=== PATIENT | female | born 1970 | race American Indian/Alaskan Native ===

== ENCOUNTER → 2017-10-12 09:55 | Outpatient (CLI) | payer MEDICARE, OTHER, SELFPAY ==
[2017-10-12 12:09] LABS: Urine N gonorrhoeae NOT DETECTED
[2017-10-12 12:46] LABS: Urine Chlamydia NOT DETECTED
== END ==
PROVIDERS: PCP Family Medicine; Visit Provider Obstetrics & Gynecology
DX: Z76.89 Persons encountering health services in other specified circumstances (principal)
CPT/HCPCS: 87491; 87591

== ENCOUNTER 2017-11-11 20:02 | Emergency (ER) | payer MEDICARE, OTHER, SELFPAY ==
--- NOTE | 2017-11-11 20:18 | DI.RAD.S_ITS ---
PROCEDURE: XR CHEST 1V INDICATIONS: 47 year-old with chest pain. TECHNIQUE: One view of the chest was acquired. COMPARISON: [facility], CR, XR CHEST 1 VIEW, 10/21/2017, 15:21. FINDINGS: Surgical changes and devices: None. Lungs and pleura: No pleural effusions or pneumothorax. Lungs are clear. Mediastinum: Mediastinal contours appear normal. Heart size is normal. Bones and chest wall: No suspicious bony lesions. Overlying soft tissues appear unremarkable. IMPRESSION: No acute cardiopulmonary disease. Dictated by: Silvia Sosa M.D. on 11/11/2017 at 21:50 Approved by: Silvia Sosa M.D. on 11/11/2017 at 21:50
[2017-11-11 20:28] LABS: Add Manual Diff / Slide Review NO; Basophils Percent Auto 0.7 % (0-2); Eosinophils Percent Auto 1.4 % (2-4); Hematocrit 42.2 % (36-46); Hemoglobin 14.2 g/dL (12.0-16.0); Lymphocytes Percent Auto 29.9 % (25-40); Mean Corpuscular HGB Conc 33.8 % (30-36); Mean Corpuscular Hemoglobin 28.8 PG (26-34); Mean Corpuscular Volume 85.3 fL (80-100); Monocytes Percent Auto 4.1 % (3-14); Neutrophils Absolute Auto 7200 /uL (3000-5900); Neutrophils Percent Auto 63.9 % (50-75); Platelet Count 248 X10^3/uL (150-400); Red Blood Cell Count 4.94 X10^6/uL (4.0-5.2); Red Cell Distribution Width 13.6 % (11.6-14.8); White Blood Cell Count 11.2 X10^3/uL (4.5-11.0)
[2017-11-11] MEDS: SODIUM CHLORIDE 0.9% 1,000 ML 150 ML IV (20:32)
[2017-11-11] MEDS: ASPIRIN 81 MG TAB 324 MG PO (20:32)
[2017-11-11 20:34] LABS: Alanine Aminotransferase 33 IU/L (9-52); Albumin 4.1 g/dL (3.5-5.0); Albumin Globulin Ratio 1.4 (1.0-2.8); Alkaline Phosphatase 110 U/L (38-126); Aspartate Aminotransferase 28 IU/L (14-36); BUN Creatinine Ratio 8.8 (6-22); Bilirubin Total 0.3 mg/dL (0.2-1.3); Blood Urea Nitrogen 7 mg/dL (7-17); Calcium 9.2 mg/dL (8.4-10.2); Carbon Dioxide 21 mmol/L (22-32); Chloride 101 mmol/L (98-107); Creatine Kinase 35 U/L (30-135); Estimated Glomerular Filt Rate > 60.0 mL/min (>60); Glucose 412 mg/dL (70-100); HEMOLYSIS < 15 (0-50); Lipase 156 U/L (23-300); Potassium 3.7 mmol/L (3.4-5.1); Sodium 136 mmol/L (137-145); Total Protein 7.1 g/dL (6.3-8.2)
[2017-11-11 20:49] LABS: Troponin I < 0.012 ng/mL (0.01-0.034)
[2017-11-11 21:08] VITALS: BP 133/87; PULSE 131; RESP 28; O2SAT 96
--- NOTE | 2017-11-11 22:12 | DI.CT.S_ITS ---
PROCEDURE: CT ANGIO CHEST PE PROTOCOL INDICATIONS: Chest Pain, SOB, tachycardia, recent travel TECHNIQUE: After the administration of intravenous contrast, 2 mm thick sections acquired from the pulmonary apices to the posterior costophrenic angles. 3-dimensional maximum intensity projection (MIP) coronal and sagittal reformats were then acquired through the thorax. For radiation dose reduction, the following was used: automated exposure control, adjustment of mA and/or kV according to patient size. COMPARISON: None. FINDINGS: Image quality: Excellent. Pulmonary arteries: Pulmonary arteries are normal in size, and demonstrate no intraluminal filling defects to suggest central pulmonary embolism. Lungs and pleura: Lungs are clear. Presumed 2 mm calcified granuloma in the left lung on image 29. No pleural effusions or pneumothorax. Central and peripheral airways are patent. Mediastinum: Heart size is normal, without pericardial effusion. No mediastinal or hilar adenopathy. Thoracic aorta is normal in caliber and enhancement. Esophagus is normal in caliber, without hiatal hernia. Bones and chest wall: No suspicious bony lesions. Ribs and thoracic spine appear intact throughout. Thyroid gland negative. No axillary or supraclavicular adenopathy. Abdomen: Mild hepatic steatosis. Slightly nodular contour of the liver. Consider further evaluation with LFTs. IMPRESSION: No evidence of pulmonary embolism. No acute consolidation. Dictated by: Luc Hernandez M.D. on 11/12/2017 at 7:40 Approved by: Luc Hernandez M.D. on 11/12/2017 at 7:45
[2017-11-12 00:05] VITALS: BP 122/75; PULSE 105; RESP 21; O2SAT 97
[2017-11-12] MEDS: HYDROMORPHONE 1 MG INJ IV (00:36)
[2017-11-12 00:41] VITALS: BP 103/51; PULSE 99; RESP 16; O2SAT 97
[2017-11-12 01:19] VITALS: BP 111/68; PULSE 103; RESP 23; O2SAT 97
--- NOTE | 2017-11-12 04:31 | ED_ITS ---
HPI - Chest Pain General Chief Complaint: Chest Pain Stated Complaint: chest pain Time Seen by Provider: 11/11/17 20:03 Source: patient and family Mode of arrival: ambulatory Limitations: no limitations History of Present Illness HPI narrative: 47-year-old female presents with a chief complaint of sharp and stabbing epigastric pain that started a few hours prior to her arrival. She denies any dizziness, weakness or lightheadedness. She denies any shortness of breath but does complain of a rapid heart rate. She admittedly is feeling quite anxious and her symptoms started while at a family member's . She denies any history of blood clot but does state she traveled to [place] a few weeks ago. She denies any history of cancer or lower extremity swelling or pain. MD complaint: chest pain Onset (ago): hour(s) Duration: intermittent Pain location: epigastric Severity: moderate Quality: sharp Pain radiation: none Relieving factors: nothing Exacerbating factors: inspiration and eating Context: recent travel Associated symptoms: nausea Treatments prior to arrival chest pain: none Related Data Home Medications Medication Instructions Recorded Confirmed prazosin [Minipress] 1 mg PO BID #0 03/10/16 propranolol 80 mg PO QDAY #0 03/10/16 albuterol sulfate [Ventolin HFA] 2 puff INH BIDP PRN #0 09/03/16 bupropion HCl 75 mg PO BID #0 09/03/16 clonazepam 1 mg PO TID #0 09/03/16 fluticasone [Flonase Allergy 1 spray INTRANASAL BID #0 09/03/16 Relief] insulin glargine [Lantus U-100 55 unit SQ HS #0 09/03/16 Insulin] [id number] 1 tab PO QDAY #0 11/24/16 [Triumeq] albiglutide [Tanzeum] 30 mg SQ QWEEK #0 11/24/16 amitriptyline 50 mg PO HS #0 11/24/16 cetirizine 10 mg PO QDAY #0 11/24/16 dexlansoprazole [Dexilant] 60 mg PO QDAY #0 11/24/16 glimepiride [Amaryl] 4 mg PO BID #0 11/24/16 losartan 25 mg PO QDAY #0 11/24/16 metformin [Fortamet] 1,000 mg PO BID #0 11/24/16 tiotropium bromide [Spiriva with 1 puff INH QDAY #0 11/24/16 HandiHaler] atorvastatin [Lipitor] 80 mg PO QDAY #0 12/16/16 Previous Rx's Medication Instructions Recorded gabapentin 800 mg PO TID #90 12/27/16 meperidine [Demerol] 100 mg PO Q4P #60 tab 12/27/16 hydromorphone [Dilaudid] 1 - 3 tab PO Q3HP PRN #60 tab 04/09/17 oseltamivir [Tamiflu] 75 mg PO BID 5 Days #0 cap 07/25/17 estradiol 1 mg tablet 1 mg PO QDAY #90 tab 09/15/17 progesterone micronized 100 mg 100 mg PO QDAY #90 cap 10/21/17 capsule Allergies Allergy/AdvReac Type Severity Reaction Status Date / Time levofloxacin [LEVOFLOXACIN] Allergy Severe hives Unverified 08/04/17 12:06 Sulfa (Sulfonamide Allergy Severe rash Unverified 08/04/17 12:06 Antibiotics) [SULFA (SULFONAMIDE ANTIBIOTICS)] amoxicillin [From AUGMENTIN] Allergy Mild rash Unverified 08/04/17 12:06 ciprofloxacin [From CIPRO] Allergy Mild rash Unverified 08/04/17 12:06 clarithromycin [From BIAXIN] Allergy Mild rash Unverified 08/04/17 12:06 clavulanic acid Allergy Mild rash Unverified 08/04/17 12:06 [From AUGMENTIN] morphine [MORPHINE] AdvReac Mild n/v Unverified 08/04/17 12:06 pregabalin [PREGABALIN] AdvReac Mild lost voice Unverified 08/04/17 12:06 Review of Systems Review of Systems All systems reviewed & are unremarkable except as noted in HPI and below Constitutional Denies chills, Denies fever(s), Denies lethargy and Denies weakness Eyes Denies change in vision, Denies eye discharge, Denies irritation and Denies loss of vision ENT Ears, Nose, Mouth, and Throat: Denies change in voice, Denies neck pain and Denies sore throat Cardiovascular Reports chest pain, Reports rapid heart rate, Denies irregular heart rhythm, Denies lightheadedness, Reports palpitations, Denies dyspnea, Denies dyspnea on exertion and Denies orthopnea Respiratory Denies cough, Reports pain on inspiration, Denies dyspnea, Denies dyspnea on exertion and Denies wheezing Gastrointestinal Gastrointestinal: Denies abdominal pain, Denies change in bowel habits, Denies diarrhea, Denies nausea and Denies vomiting Genitourinary Denies hematuria, Denies flank pain, Denies urinary incontinence and Denies urinary urgency Musculoskeletal Denies neck pain Integumentary/Breasts Denies pruritus, Denies erythema, Denies rash and Denies wounds Neurologic Denies confusion, Denies loss of vision and Denies weakness Psychiatric Reports anxiety, Denies confusion, Reports depression, Denies homicidal ideation and Denies suicidal ideation Endocrine Reports palpitations Hematologic/Lymphatic Denies easy bruising Allergic/Immunologic Denies wheezing PFSH Medical History Anxiety (Chronic) Arthritis (Chronic) Bipolar disorder (Chronic) Depression (Chronic) Diabetes mellitus (Chronic) GERD (gastroesophageal reflux disease) (Chronic) HIV (human immunodeficiency virus infection) (Chronic) History of gastrointestinal symptoms (Chronic) Hypertension (Chronic) PTSD (post-traumatic stress disorder) (Chronic) Fibroids (Resolved) Surgical History History of cystoscopy (Resolved 2013) S/P functional endoscopic sinus surgery (Resolved 2002) Status post arthroscopy (Resolved 2003) Status post cholecystectomy (Resolved 2011) Status post laparoscopic supracervical hysterectomy (Resolved 2011) Family History Father Congestive heart failure Social History Smoking Status: Current every day smoker Exam Narrative Exam Narrative: 47-year-old female visibly anxious complaining of epigastric chest pain and palpitations Initial Vital Signs Initial Vital Signs: Vital Signs Pulse Rate 131 H 11/11/17 21:08 Respiratory Rate 28 H 11/11/17 21:08 Blood Pressure 133/87 H 11/11/17 21:08 Pulse Oximetry 96 11/11/17 21:08 Const General: cooperative, well developed, acute distress and anxious Nutritional Appearance: well nourished Orientation: alert, awake, oriented x3 and not confused [facility] Head: normocephalic and atraumatic Ears: external ears normal and TM's normal bilaterally Nose: external nose normal and No nasal discharge Face and sinus: sinuses nontender, face symmetric, no sinus tenderness and No dry mucous membranes Mouth: oral mucosae normal and moist mucous membranes Teeth and gingiva: dentition normal Throat: tonsils normal and uvula midline Chest Chest: normal inspection of the chest Resp Effort & Inspection: normal respiratory effort, able to speak in complete sentences, no respiratory distress and no use of accessory muscles Auscultation: clear to auscultation bilaterally, no rales, no rhonchi and no wheezes Cardio Rate: tachycardic Rhythm: regular rhythm GI Inspection: normal to inspection and non-distended Palpation: tender (In the epigastrium) Neuro General: alert, oriented x3, gait normal and no focal motor deficits Speech: speech normal Extrem General: full ROM, no clubbing, cyanosis or edema, no pedal edema and no calf tenderness Psych Appearance: grossly normal and well kempt Mental Status: mental status grossly normal Speech and Movement: speech and movement normal Attitude: cooperative Thought Process: normal Course Orders Ordered: ED Orders 11/11/17 20:10 Complete Blood Count AUTO DIFF Stat Comprehensive Metabolic Panel Stat Lipase Stat Troponin & CK Cardiac Panel Stat 11/11/17 20:18 XR chest 1V Stat EKG-12 Lead Stat 11/11/17 22:12 CT angio chest PE protocol Stat Discontinued Medications Aspirin (Aspirin Chew) 324 mg PO NOW ONE Stop: 11/11/17 20:19 Last Admin: 11/11/17 20:32 Dose: 324 mg Hydromorphone HCl (Dilaudid) 1 mg IV NOW ONE Stop: 11/12/17 00:27 Last Admin: 11/12/17 00:36 Dose: 1 mg Sodium Chloride (Normal Saline 0.9%) 1,000 mls @ 150 mls/hr IV CONT MILY Last Infusion: 11/12/17 01:08 Dose: 0 mls/hr Admin: 11/11/17 20:32 Dose: 150 mls/hr Vital Signs - 8 hr 11/11/17 21:08 11/12/17 00:05 11/12/17 00:41 Pulse Rate 131 H 105 H 99 H Respiratory Rate 28 H 21 16 Blood Pressure Blood Pressure [Right Arm] 133/87 H 122/75 H 103/51 L Pulse Oximetry 96 97 97 11/12/17 01:19 Pulse Rate 103 H Respiratory Rate 23 Blood Pressure 111/68 Blood Pressure [Right Arm] Pulse Oximetry 97 MDM - Chest Pain Differential Diagnosis Likely pneumothorax, stable angina, unstable angina pectoris, atypical chest pain, st elevation myocardial infarction, costochondritis, chest pain, biliary colic and other Medical Records Data Attestation: I reviewed the patient's medical records. Lab Data Attestation: I reviewed the patient's lab results. Result diagrams: 11/11/17 20:10 11/11/17 20:10 Lab Results 11/11/17 11/11/17 Range/Units 20:10 20:10 WBC 11.2 H (4.5-11.0) X10^3/uL RBC 4.94 (4.0-5.2) X10^6/uL Hgb 14.2 (12.0-16.0) g/dL Hct 42.2 (36-46) % MCV 85.3 (80-100) fL MCH 28.8 (26-34) PG MCHC 33.8 (30-36) % RDW 13.6 (11.6-14.8) % Plt Count 248 (150-400) X10^3/uL Neut % (Auto) 63.9 (50-75) % Lymph % (Auto) 29.9 (25-40) % [place] % (Auto) 4.1 (3-14) % Eos % (Auto) 1.4 L (2-4) % Baso % (Auto) 0.7 (0-2) % Neut # (Auto) 7200 H (4458-8302) /uL Sodium 136 L (137-145) mmol/L Potassium 3.7 (3.4-5.1) mmol/L Chloride 101 (98-107) mmol/L Carbon Dioxide 21 L (22-32) mmol/L BUN 7 (7-17) mg/dL Creatinine 0.80 (0.52-1.04) mg/dL Estimated GFR > 60.0 (>60) mL/min BUN/Creatinine Ratio 8.8 (6-22) Glucose 412 H (70-100) mg/dL Calcium 9.2 (8.4-10.2) mg/dL Total Bilirubin 0.3 (0.2-1.3) mg/dL AST 28 (14-36) IU/L ALT 33 (9-52) IU/L Alkaline Phosphatase 110 (38-126) U/L Total Creatine Kinase 35 (30-135) U/L Troponin I < 0.012 (0.01-0.034) ng/mL Total Protein 7.1 (6.3-8.2) g/dL Albumin 4.1 (3.5-5.0) g/dL Globulin 3.0 (1.7-4.1) g/dL Albumin/Globulin Ratio 1.4 (1.0-2.8) Lipase 156 (23-300) U/L Imaging Data CT scan - chest: Radiologist's impression: No PE ECG Data Interpretation: Sinus tachycardia in the 120s without signs of ectopy or ischemia such as ST elevation or T-wave inversion MDM Narrative Medical decision making narrative: Cardiac etiology considered but pain is epigastric, sharp and reproducible with palpation. It is worse with a deep breath. EKG shows no ischemic change and troponin is normal. PE considered given travel and pleuritic-type chest pain but CT with PE protocol was normal. Pancreatitis and gallbladder disease considered but normal labs are present. Discharge Plan Departure Patient Disposition: Home, Self-Care Clinical Impression: Atypical chest pain, Acute hyperglycemia Discharge Date/Time: 11/12/17 01:20 Interventions: ED Discharge Assessment Last Done: 11/12/17 01:19 Instructions: DI for Atypical Chest Pain Activity Restrictions/Additional Instructions: *You have been diagnosed with [ atypical chest pain and hyperglycemia ] *What to do: *Take medications as directed *Follow up with your primary care provider in 2-3 days, call for an appointment. Let them know you were seen in the Emergency Department and that we ask that you be seen in follow up *Return to ER if you should have any new, worsening or concerning symptoms , such as [ recurrence of chest pain, shortness of breath or other bothersome symptoms] Prescriptions: No Action propranolol 80 MG capsule,extended release 24 hr 80 mg PO QDAY Qty: 0 RF: 0 prazosin [Minipress] 1 MG capsule 1 mg PO BID Qty: 0 RF: 0 bupropion HCl 75 MG tablet 75 mg PO BID Qty: 0 RF: 0 albuterol sulfate [Ventolin HFA] 90 MCG/PUFF HFA aerosol inhaler 2 puff INH BIDP PRNQty: 0 RF: 0 clonazepam 1 MG tablet 1 mg PO TID Qty: 0 RF: 0 insulin glargine [Lantus U-100 Insulin] 100 UNIT/1 ML solution 55 unit SQ HS Qty: 0 RF: 0 fluticasone [Flonase Allergy Relief] 9.9 ML spray,suspension 1 spray Intranasal BID Qty: 0 RF: 0 vzyxgtog-flkbwdkivuix-qgpnutz [Triumeq] 1 EACH tablet 1 tab PO QDAY Qty: 0 RF: 0 albiglutide [Tanzeum] 30 MG/0.5 ML pen injector 30 mg SQ QWEEK Qty: 0 RF: 0 dexlansoprazole [Dexilant] 60 MG capsule,biphase delayed releas 60 mg PO QDAY Qty: 0 RF: 0 amitriptyline 50 MG tablet 50 mg PO HS Qty: 0 RF: 0 cetirizine 10 MG tablet 10 mg PO QDAY Qty: 0 RF: 0 glimepiride [Amaryl] 4 MG tablet 4 mg PO BID Qty: 0 RF: 0 losartan 25 MG tablet 25 mg PO QDAY Qty: 0 RF: 0 metformin [Fortamet] 1,000 MG tablet extended release 24hr 1,000 mg PO BID Qty: 0 RF: 0 tiotropium bromide [Spiriva with HandiHaler] 18 MCG capsule, w/inhalation device 1 puff INH QDAY Qty: 0 RF: 0 atorvastatin [Lipitor] 80 MG tablet 80 mg PO QDAY Qty: 0 RF: 0 gabapentin 800 MG tablet 800 mg PO TID Qty: 90 RF: 1 meperidine [Demerol] 100 MG tablet 100 mg PO Q4P Qty: 60 RF: 0 hydromorphone [Dilaudid] 2 MG tablet 1 - 3 tab PO Q3HP PRNQty: 60 RF: 0 oseltamivir [Tamiflu] 75 MG capsule 75 mg PO BID 5 Days Qty: 0 RF: 0 estradiol 1 mg tablet 1 mg PO QDAY Qty: 90 RF: 1 progesterone micronized [Prometrium] 100 mg capsule 100 mg PO QDAY Qty: 90 RF: 1 Referrals: Sal Britt MD [Primary Care Provider] -
== END 2017-11-12 01:20 | disposition home or self-care (01) ==
PROVIDERS: Emergency Provider Emergency Medicine; PCP Family Medicine
DX: R07.89 Other chest pain (principal); R73.9 Hyperglycemia, unspecified
CPT/HCPCS: 36591; 71045; 71275; 80053; 81003; 82550; 82553; 82962; 83690; 84484; 85025; 93005; 93041; 96361; 96374; 99284; 99285; J1170; Q9967

== ENCOUNTER → 2018-04-14 07:43 | Outpatient (CLI) | payer MEDICARE, OTHER, SELFPAY | PROVIDERS: PCP Family Medicine; Visit Provider Obstetrics & Gynecology | DX: Z12.31 Encounter for screening mammogram for malignant neoplasm of breast (principal); Z53.9 Procedure and treatment not carried out, unspecified reason ==

== ENCOUNTER → 2018-04-21 08:35 | Outpatient (CLI) | payer MEDICARE, OTHER, SELFPAY ==
--- NOTE | 2018-04-21 08:38 | DI.MG.S_ITS ---
BILATERAL DIGITAL DIAGNOSTIC MAMMOGRAM 3D/2D: 04/21/2018 CLINICAL: Left breast mass. Per technologist, patient reports left axillary tenderness for 6 months and extends down towards questionable mass/cyst. Patient has noted that there may be a cyst laterally with tenderness for 1 month. She thinks it may be a little smaller at today's exam. Had CBE yesterday. Comparison is made to exams dated: 06/26/2016 mammogram, 06/21/2015 mammogram, and 06/14/2014 mammogram - [facility]. There are scattered fibroglandular elements in both breasts. There is a square marker overlying the skin of the left axilla at the site of the patient's reported focal pain. There is no underlying mammographic abnormality. There is a triangular marker overlying the skin of the left axilla/left breast axillary tail at the site of the patient's reported palpable abnormality. There is nearby benign-appearing oval circumscribed 0.9 cm lymph node with normal internal fatty hilum. No other significant masses, calcifications, or other findings are seen in either breast. IMPRESSION: INCOMPLETE: NEEDS ADDITIONAL IMAGING EVALUATION No mammographic abnormality to correlate with the site of the patient's reported focal left axillary pain. Targeted diagnostic ultrasound recommended for further evaluation, which will be performed immediately following this exam. 0.9 cm benign appearing left axilla/axillary tail lymph node appears to correspond to the site of the patient's reported focal palpable abnormality on mammography. Targeted diagnostic ultrasound recommended for further evaluation, which will be performed immediately following this exam. This exam was interpreted at Station ID: [id number]. NOTE: For mammograms, a report in lay terms will be sent to the patient. Approximately 15% of breast malignancies will not be visualized mammographically. In the management of a palpable breast mass, a negative mammogram must not discourage biopsy of a clinically suspicious lesion. Electronically Signed By: Andi Gu M.D. ecl/:04/21/2018 09:50:08 letter sent: Additional Imaging Needed ACR BI-RADS Category 0: Incomplete [id number]
--- NOTE | 2018-04-21 08:38 | DI.US.S_ITS ---
LIMITED ULTRASOUND OF LEFT BREAST AND AXILLA: 04/21/2018 CLINICAL: Palpable left breast lump. Comparison is made to exams dated: 04/21/2018 mammogram, 06/26/2016 mammogram, and 06/21/2015 mammogram - [facility]. Real-time and Doppler ultrasound of the left breast axilla were performed. Sunshine scale images of the real-time examination were reviewed. Targeted ultrasound at the site of the patient's reported focal palpable abnormality demonstrates a 0.8 x 0.5 x 0.8 cm oval circumscribed lymph node with no cortical thickening and preserved fatty hilum in the left breast at 2:30 position 20 cm from the nipple. Targeted ultrasound was performed in the left axilla at the site of the patient's reported focal pain. No underlying breast mass or abnormality is identified. There is no underlying left axillary lymphadenopathy. IMPRESSION: BENIGN 1) 0.8 cm benign-appearing lymph node identified in the left breast at 2:30 position 20 cm from the nipple at the site of the patient's focal palpable abnormality. Recommend clinical follow-up for further evaluation and management of the patient's reported symptoms. 2) No ultrasound findings to explain patient's reported focal left axillary pain. Recommend clinical follow-up for further evaluation and management of the patient's reported symptoms. 3) There is no sonographic evidence of malignancy in the imaged portions of the left breast and left axilla. Return to annual screening mammography is recommended. The patient is advised to monitor her breasts and to return sooner for re-evaluation should she feel anything grow or change. This exam was interpreted at Station ID: [id number]. Electronically Signed By: Andi Gu M.D. ecl/:04/21/2018 11:09:04 letter sent: Clinical Evaluation Ultrasound BI-RADS: 2 Benign
== END ==
PROVIDERS: PCP Family Medicine; Visit Provider Obstetrics & Gynecology
DX: N63.0 Unspecified lump in unspecified breast (principal); N64.4 Mastodynia; N63.20 Unspecified lump in the left breast, unspecified quadrant
CPT/HCPCS: 76642; 77066; G0279

== ENCOUNTER → 2020-03-08 12:18 | Outpatient (CLI) | payer MEDICARE, OTHER, SELFPAY ==
--- NOTE | 2020-03-08 12:19 | DI.MG.S_ITS ---
BILATERAL DIGITAL SCREENING MAMMOGRAM 3D/2D WITH CAD: 03/08/2020 CLINICAL: Routine screening. Comparison is made to exams dated: 04/21/2018 mammogram, 06/26/2016 mammogram, and 06/21/2015 mammogram - [facility]. There are scattered fibroglandular elements in both breasts. Current study was also evaluated with a Computer Aided Detection (CAD) system. No significant masses, calcifications, or other findings are seen in either breast. There has been no significant interval change. IMPRESSION: NEGATIVE There is no mammographic evidence of malignancy. A 1 year screening mammogram is recommended. This exam was interpreted at Station ID: [id number]. NOTE: For mammograms, a report in lay terms will be sent to the patient. Approximately 15% of breast malignancies will not be visualized mammographically. In the management of a palpable breast mass, a negative mammogram must not discourage biopsy of a clinically suspicious lesion. Electronically Signed By: Evelin chong/allegra:03/08/2020 13:14:40 letter sent: Normal Exam ACR BI-RADS Category 1: Negative [id number]
== END ==
PROVIDERS: PCP Student in an Organized Health Care Education/Training Program; Referring Provider Obstetrics & Gynecology; Visit Provider Obstetrics & Gynecology
DX: Z12.31 Encounter for screening mammogram for malignant neoplasm of breast (principal)
CPT/HCPCS: 77063; 77067

== ENCOUNTER 2020-03-15 12:39 | Emergency (ER) | payer MEDICARE, OTHER, SELFPAY ==
[2020-03-15] VITALS (11 sets, daily range): BP systolic 112–140; BP diastolic 55–76; PULSE 82–109; RESP 13–24; TEMP 36.7–37.2; O2SAT 94–98; BMI 30.7
--- NOTE | 2020-03-15 12:43 | DI.RAD.S_ITS ---
PROCEDURE: XR CHEST 1V INDICATIONS: chest pain TECHNIQUE: One view of the chest was acquired. COMPARISON: [facility], CR, XR CHEST 1 VIEW, 01/16/2020, 21:01. [facility], CR, XR CHEST 1V, 11/11/2017, 20:37. FINDINGS: Surgical changes and devices: None. Lungs and pleura: Lungs are clear. No pleural effusions or pneumothorax. Mediastinum: Mediastinal contours appear normal. Heart size is normal. Bones and chest wall: No suspicious bony lesions. Overlying soft tissues appear unremarkable. IMPRESSION: No acute cardiopulmonary disease. Dictated by: Slivia Sosa M.D. on 03/15/2020 at 13:41 Approved by: Silvia Sosa M.D. on 03/15/2020 at 13:42
--- NOTE | 2020-03-15 13:02 | ED.CHESTPAIN ---
HPI - Chest Pain General Chief Complaint: Chest Pain Stated Complaint: chest pain, SOB, Headaches, brown urine Time Seen by Provider: 03/15/20 12:44 Source: patient Mode of arrival: Ambulatory Limitations: no limitations History of Present Illness HPI narrative: Patient is a 49-year-old female with history of HIV, diabetes, hyperlipidemia presenting with chest pain and heart fluttering. She states it started who has been with him for 18 years. She is getting short of breath with exertion. She denies any orthopnea she has not had fever chills or cough. She apparently was seen at [facility] for the same about a month ago. She also reports that she is dizzy every time she stands up. She denies weakness numbness or tingling MD complaint: chest pain Related Data Home Medications Medication Instructions Recorded Confirmed prazosin [Minipress] 1 mg PO BID #0 03/10/16 02/14/20 propranolol 80 mg PO QDAY #0 03/10/16 02/14/20 albuterol sulfate [Ventolin HFA] 2 puff INH BIDP PRN #0 09/03/16 02/14/20 bupropion HCl 75 mg PO BID #0 09/03/16 02/14/20 clonazepam 1 mg PO TID #0 09/03/16 02/14/20 fluticasone propionate [Flonase 1 spray INTRANASAL BID #0 09/03/16 02/14/20 Allergy Relief] insulin glargine [Lantus U-100 55 unit SQ HS #0 09/03/16 02/14/20 Insulin] [id number] 1 tab PO QDAY #0 11/24/16 02/14/20 [Triumeq] amitriptyline 50 mg PO HS #0 11/24/16 02/14/20 cetirizine 10 mg PO QDAY #0 11/24/16 02/14/20 dexlansoprazole [Dexilant] 60 mg PO QDAY #0 11/24/16 02/14/20 glimepiride [Amaryl] 4 mg PO BID #0 11/24/16 02/14/20 losartan 25 mg PO QDAY #0 11/24/16 02/14/20 metformin [Fortamet] 1,000 mg PO BID #0 11/24/16 02/14/20 tiotropium bromide [Spiriva with 1 puff INH QDAY #0 11/24/16 02/14/20 HandiHaler] atorvastatin [Lipitor] 80 mg PO QDAY #0 12/16/16 02/14/20 Previous Rx's Medication Instructions Recorded gabapentin 800 mg PO TID #90 12/27/16 meperidine [Demerol] 100 mg PO Q4P #60 tab 12/27/16 progesterone micronized 100 mg 100 mg PO QDAY #60 cap 08/16/19 capsule estradiol 1 mg tablet 1 mg PO DAILY #30 tab 11/14/19 estradiol 1 vaginalrin VAG [id number] #1 each 02/15/20 Allergies Allergy/AdvReac Type Severity Reaction Status Date / Time levofloxacin [LEVOFLOXACIN] Allergy Severe hives Unverified 03/15/20 12:52 Sulfa (Sulfonamide Allergy Severe rash Unverified 03/15/20 12:52 Antibiotics) [SULFA (SULFONAMIDE ANTIBIOTICS)] amoxicillin [From AUGMENTIN] Allergy Mild rash Unverified 03/15/20 12:52 ciprofloxacin [From CIPRO] Allergy Mild rash Unverified 03/15/20 12:52 clarithromycin [From BIAXIN] Allergy Mild rash Unverified 03/15/20 12:52 clavulanic acid Allergy Mild rash Unverified 03/15/20 12:52 [From AUGMENTIN] morphine [MORPHINE] AdvReac Mild n/v Unverified 03/15/20 12:52 pregabalin [PREGABALIN] AdvReac Mild lost voice Unverified 03/15/20 12:52 Review of Systems Review of Systems Narrative: GENERAL: Denies chills, fatigue, malaise, fever, sweats, travel HEENT: Denies sinus pain, ear pain, sore throat, difficulty swallowing, neck pain RESPIRATORY: Denies dyspnea, cough, wheezing, hemoptysis, sputum. CARDIOVASCULAR: See HPI GASTROINTESTINAL: Denies nausea, vomiting, abdominal pain, diarrhea, constipation, melena. : Denies dysuria, frequency, incontinence, hematuria, urinary retention, flank pain. MUSCULOSKELETAL: Denies weakness, joint pain, or bony pain SKIN: No rash, no erythema, no pruritus NEUROLOGIC: Denies weakness, dizziness, headache, numbness, change in speech, confusion PSYCHIATRIC: No concerning psychosocial issues. 12 point review of systems is negative except for those stated above and HPI Patient History Medical History Anxiety Arthritis Bipolar disorder Depression Diabetes mellitus Fibroids GERD (gastroesophageal reflux disease) History of gastrointestinal symptoms HIV (human immunodeficiency virus infection) Hypertension PTSD (post-traumatic stress disorder) Surgical History History of cystoscopy (2013) History of stress incontinence procedure using tension free vaginal tape (2013) S/P functional endoscopic sinus surgery (2002) Status post arthroscopy (2003) Status post cholecystectomy (2011) Status post laparoscopic supracervical hysterectomy (2011) Family History Father Congestive heart failure Social History Smoking Status: Current every day smoker Smoking Status: Current every day smoker alcohol intake frequency: 0-2 drinks per day Substance Use Type: marijuana Exam Initial Vital Signs Initial Vital Signs: Vital Signs Pulse Rate 109 H 03/15/20 12:47 Respiratory Rate 16 03/15/20 12:47 Pulse Oximetry 97 03/15/20 12:47 GENERAL: Well-appearing, well-nourished and in no acute distress. HEENT: Head atraumatic,EOMI, pupils reactive, face symmetric, moist mucous membranes CARDIOVASCULAR: Regular rate and rhythm without murmurs, rubs or gallops. RESPIRATORY: Breath sounds equal bilaterally, no wheezes rales or rhonchi. ABDOMEN: Soft, nontender. Normoactive bowel sounds all 4 quadrants. No guarding or rebound. EXTREMITIES: Normal range of motion, no clubbing or edema. Neurovascularly intact NEUROLOGICAL: Alert and oriented x4.Normal gait and speech. Cranial nerves II through XII grossly intact. SKIN: Warm, dry, no laceration, no petechiae, no rashes or lesions. Course Orders Ordered: ED Orders 03/15/20 12:43 XR chest 1V Stat EKG-12 Lead Stat 03/15/20 13:02 Complete Blood Count AUTO DIFF Stat Comprehensive Metabolic Panel Stat D Dimer Stat Lipase Stat NT-proBNP (BNP-Adult 18+) Stat Partial Thromboplastin Time Stat Prothrombin Time INR Stat Troponin & CK Cardiac Panel Stat Discontinued Medications Sodium Chloride (Normal Saline 0.9%) 1,000 mls @ 1,000 mls/hr IV BOLUS ONE Stop: 03/15/20 14:49 Last Admin: 03/15/20 14:17 Dose: 1,000 mls/hr Documented by: MARISOL Ketorolac Tromethamine (Ketorolac 60 Mg/2 Ml Vial) 30 mg IV NOW ONE Stop: 03/15/20 13:27 Last Admin: 03/15/20 13:36 Dose: 30 mg Documented by: MARISOL Lorazepam (Lorazepam 2 Mg/Ml Inj) 0.5 mg IV NOW ONE Stop: 03/15/20 13:51 Last Admin: 03/15/20 14:16 Dose: 0.5 mg Documented by: MARISOL Vital Signs Vital signs: Vital Signs - 8 hr 03/15/20 12:47 03/15/20 12:48 03/15/20 13:00 Temperature 98.9 F Pulse Rate 109 H 105 H 97 H Pulse Rate [Orthostatic Lying] Pulse Rate [Orthostatic Sitting] Pulse Rate [Orthostatic Standing] Respiratory Rate 16 18 19 Blood Pressure 140/68 134/76 Blood Pressure [Orthostatic Lying] Blood Pressure [Orthostatic Sitting] Blood Pressure [Orthostatic Standing] Pulse Oximetry 97 98 96 03/15/20 13:12 03/15/20 13:14 03/15/20 13:16 Temperature Pulse Rate 98 H 103 H Pulse Rate [Orthostatic Lying] 88 Pulse Rate [Orthostatic Sitting] 91 H Pulse Rate [Orthostatic Standing] 105 H Respiratory Rate 17 23 Blood Pressure 122/59 L 112/55 L Blood Pressure [Orthostatic Lying] 123/59 L Blood Pressure [Orthostatic Sitting] 122/59 L Blood Pressure [Orthostatic Standing] 112/55 L Pulse Oximetry 97 98 03/15/20 13:26 03/15/20 13:30 03/15/20 14:00 Temperature Pulse Rate 92 H 91 H 83 Pulse Rate [Orthostatic Lying] Pulse Rate [Orthostatic Sitting] Pulse Rate [Orthostatic Standing] Respiratory Rate 24 17 15 Blood Pressure 122/60 112/58 L 118/69 Blood Pressure [Orthostatic Lying] Blood Pressure [Orthostatic Sitting] Blood Pressure [Orthostatic Standing] Pulse Oximetry 97 95 95 03/15/20 14:30 03/15/20 15:03 Temperature 98.1 F Pulse Rate 83 82 Pulse Rate [Orthostatic Lying] Pulse Rate [Orthostatic Sitting] Pulse Rate [Orthostatic Standing] Respiratory Rate 22 13 Blood Pressure 114/59 L 114/59 L Blood Pressure [Orthostatic Lying] Blood Pressure [Orthostatic Sitting] Blood Pressure [Orthostatic Standing] Pulse Oximetry 94 98 MDM - Chest Pain Lab Data Attestation: I reviewed the patient's lab results. Result diagrams: 03/15/20 13:02 03/15/20 13:02 Labs: Lab Results 03/15/20 03/15/20 03/15/20 Range/Units 13:02 13:02 13:02 WBC 10.3 (4.5-11.0) X10^3/uL RBC 4.76 (4.0-5.2) X10^6/uL Hgb 13.9 (12.0-16.0) g/dL Hct 42.2 (36-46) % MCV 88.7 (80-100) fL MCH 29.2 (26-34) PG MCHC 32.9 (30-36) % RDW 13.6 (11.6-14.8) % Plt Count 226 (150-400) X10^3/uL Neut % (Auto) 57.9 (50-75) % Lymph % (Auto) 30.6 (25-40) % [place] % (Auto) 3.6 (3-14) % Eos % (Auto) 6.8 H (2-4) % Baso % (Auto) 1.1 (0-2) % Neut # (Auto) 6000 (3635-3605) /uL Lymph # (Auto) 3200 (9638-4312) /uL [place] # (Auto) 400 (0-900) /uL Eos # (Auto) 700 H (0-450) /uL Baso # (Auto) 100 (0-100) /uL PT 11.5 (10.1-12.7) SECONDS INR 1.0 (0.9-1.3) APTT 29 (26.4-36.2) SECONDS D-Dimer (<230) ng/mL Sodium 134 L (137-145) mmol/L Potassium 4.0 (3.4-5.1) mmol/L Chloride 97 L (98-107) mmol/L Carbon Dioxide 29 (22-32) mmol/L BUN 5 L (7-17) mg/dL Creatinine 0.65 (0.52-1.04) mg/dL Estimated GFR > 60.0 (>60) mL/min BUN/Creatinine Ratio 7.7 (6-22) Glucose 261 H (70-100) mg/dL Calcium 8.9 (8.4-10.2) mg/dL Total Bilirubin 0.3 (0.2-1.3) mg/dL AST 20 (14-36) IU/L ALT 17 (<35) IU/L Alkaline Phosphatase 90 (38-126) U/L Total Creatine Kinase 34 (30-135) U/L CK-MB (CK-2) TNP CK-MB (CK-2) Rel Index TNP Troponin I < 0.012 (0.01-0.034) ng/mL NT-Pro-B Natriuret Pep (<125) pg/mL Total Protein 7.2 (6.3-8.2) g/dL Albumin 3.9 (3.5-5.0) g/dL Globulin 3.3 (1.7-4.1) g/dL Albumin/Globulin Ratio 1.2 (1.0-2.8) Lipase 131 (23-300) U/L 03/15/20 03/15/20 Range/Units 13:02 13:02 WBC (4.5-11.0) X10^3/uL RBC (4.0-5.2) X10^6/uL Hgb (12.0-16.0) g/dL Hct (36-46) % MCV (80-100) fL MCH (26-34) PG MCHC (30-36) % RDW (11.6-14.8) % Plt Count (150-400) X10^3/uL Neut % (Auto) (50-75) % Lymph % (Auto) (25-40) % [place] % (Auto) (3-14) % Eos % (Auto) (2-4) % Baso % (Auto) (0-2) % Neut # (Auto) (6785-9789) /uL Lymph # (Auto) (8503-9699) /uL [place] # (Auto) (0-900) /uL Eos # (Auto) (0-450) /uL Baso # (Auto) (0-100) /uL PT (10.1-12.7) SECONDS INR (0.9-1.3) APTT (26.4-36.2) SECONDS D-Dimer 259 H (<230) ng/mL Sodium (137-145) mmol/L Potassium (3.4-5.1) mmol/L Chloride (98-107) mmol/L Carbon Dioxide (22-32) mmol/L BUN (7-17) mg/dL Creatinine (0.52-1.04) mg/dL Estimated GFR (>60) mL/min BUN/Creatinine Ratio (6-22) Glucose (70-100) mg/dL Calcium (8.4-10.2) mg/dL Total Bilirubin (0.2-1.3) mg/dL AST (14-36) IU/L ALT (<35) IU/L Alkaline Phosphatase (38-126) U/L Total Creatine Kinase (30-135) U/L CK-MB (CK-2) CK-MB (CK-2) Rel Index Troponin I (0.01-0.034) ng/mL NT-Pro-B Natriuret Pep 40 (<125) pg/mL Total Protein (6.3-8.2) g/dL Albumin (3.5-5.0) g/dL Globulin (1.7-4.1) g/dL Albumin/Globulin Ratio (1.0-2.8) Lipase (23-300) U/L Imaging Data Chest x-ray: Radiologist's Impression: PROCEDURE: XR CHEST 1V INDICATIONS: chest pain TECHNIQUE: One view of the chest was acquired. COMPARISON: [facility], CR, XR CHEST 1 VIEW, 01/16/2020, 21:01. [facility], CR, XR CHEST 1V, 11/11/2017, 20:37. FINDINGS: Surgical changes and devices: None. Lungs and pleura: Lungs are clear. No pleural effusions or pneumothorax. Mediastinum: Mediastinal contours appear normal. Heart size is normal. Bones and chest wall: No suspicious bony lesions. Overlying soft tissues appear unremarkable. IMPRESSION: No acute cardiopulmonary disease. Dictated by: Silvia Sosa M.D. on 03/15/2020 at 13:41 ECG Data Attestation: I personally reviewed and interpreted this ECG as follows: Prior ECG tracings: available for review Interpretation: Normal sinus rhythm rate 99 p.r. interval [address] changes similar to previous EKG MDM Narrative Medical decision making narrative: Patient overall is feeling very anxious, requesting of clonazepam for her anxiety. She has small dose of Ativan which seems to help. No longer feeling dizzy or lightheaded, requesting to go home Discharge Plan Departure Patient Disposition: Home Clinical Impression: Anxiety Instructions: Anxiety Disorders Activity Restrictions/Additional Instructions: *You have been diagnosed with anxiety *What to do: Your chest discomfort today I believe is related to your anxiety. There are no abnormalities found well your on the monitor or on her EKG *Continue to take medications as directed *Follow up with your primary care provider in 2-3 days *Return to ER if you should have increasing chest pain dizziness lightheadedness or short of breath or any new, worsening or concerning symptoms Prescriptions: No Action propranolol 80 MG capsule,extended release 24 hr 80 mg PO QDAY Qty: 0 RF: 0 prazosin [Minipress] 1 MG capsule 1 mg PO BID Qty: 0 RF: 0 bupropion HCl 75 MG tablet 75 mg PO BID Qty: 0 RF: 0 albuterol sulfate [Ventolin HFA] 90 MCG/PUFF HFA aerosol inhaler 2 puff INH BIDP PRNQty: 0 RF: 0 clonazepam 1 MG tablet 1 mg PO TID Qty: 0 RF: 0 insulin glargine [Lantus U-100 Insulin] 100 UNIT/1 ML solution 55 unit SQ HS Qty: 0 RF: 0 fluticasone propionate [Flonase Allergy Relief] 9.9 ML spray,suspension 1 spray Intranasal BID Qty: 0 RF: 0 [id number] [Triumeq] 1 EACH tablet 1 tab PO QDAY Qty: 0 RF: 0 dexlansoprazole [Dexilant] 60 MG capsule,biphase delayed releas 60 mg PO QDAY Qty: 0 RF: 0 amitriptyline 50 MG tablet 50 mg PO HS Qty: 0 RF: 0 cetirizine 10 MG tablet 10 mg PO QDAY Qty: 0 RF: 0 glimepiride [Amaryl] 4 MG tablet 4 mg PO BID Qty: 0 RF: 0 losartan 25 MG tablet 25 mg PO QDAY Qty: 0 RF: 0 metformin [Fortamet] 1,000 MG tablet extended release 24hr 1,000 mg PO BID Qty: 0 RF: 0 tiotropium bromide [Spiriva with HandiHaler] 18 MCG capsule, w/inhalation device 1 puff INH QDAY Qty: 0 RF: 0 atorvastatin [Lipitor] 80 MG tablet 80 mg PO QDAY Qty: 0 RF: 0 gabapentin 800 MG tablet 800 mg PO TID Qty: 90 RF: 1 meperidine [Demerol] 100 MG tablet 100 mg PO Q4P Qty: 60 RF: 0 progesterone micronized [Prometrium] 100 mg capsule 100 mg PO QDAY Qty: 60 RF: 0 estradiol 1 mg tablet 1 mg PO DAILY Qty: 30 RF: 6 Estring 2 mg (7.5 mcg /24 hour) ring 1 vaginalrin VAG [id number] Qty: 1 RF: 4 Referrals: Lorena Cook DO [Primary Care Provider] -
[2020-03-15 13:15] LABS: Add Manual Diff / Slide Review NO; Basophils Absolute Auto 100 /uL (0-100); Basophils Percent Auto 1.1 % (0-2); Eosinophils Absolute Auto 700 /uL (0-450); Eosinophils Percent Auto 6.8 % (2-4); Hematocrit 42.2 % (36-46); Hemoglobin 13.9 g/dL (12.0-16.0); Lymphocytes Absolute Auto 3200 /uL (1100-4500); Lymphocytes Percent Auto 30.6 % (25-40); Mean Corpuscular HGB Conc 32.9 % (30-36); Mean Corpuscular Hemoglobin 29.2 PG (26-34); Mean Corpuscular Volume 88.7 fL (80-100); Monocytes Absolute Auto 400 /uL (0-900); Monocytes Percent Auto 3.6 % (3-14); Neutrophils Absolute Auto 6000 /uL (1500-7000); Neutrophils Percent Auto 57.9 % (50-75); Platelet Count 226 X10^3/uL (150-400); Red Blood Cell Count 4.76 X10^6/uL (4.0-5.2); Red Cell Distribution Width 13.6 % (11.6-14.8); White Blood Cell Count 10.3 X10^3/uL (4.5-11.0)
[2020-03-15 13:27] LABS: Prothrombin Time 11.5 SECONDS (10.1-12.7)
--- NOTE | 2020-03-15 13:27 | PC.NURSE ---
patient reporting new onset right shoulder blade pain radiating into right side of neck. Tearful. Provider aware. Provider ordering ketorlac for pain.
[2020-03-15 13:29] LABS: PTT Partial Thromboplastin Tim 29 SECONDS (26.4-36.2)
[2020-03-15 13:32] LABS: Alanine Aminotransferase 17 IU/L (<35); Albumin 3.9 g/dL (3.5-5.0); Albumin Globulin Ratio 1.2 (1.0-2.8); Alkaline Phosphatase 90 U/L (38-126); Aspartate Aminotransferase 20 IU/L (14-36); BUN Creatinine Ratio 7.7 (6-22); Bilirubin Total 0.3 mg/dL (0.2-1.3); Blood Urea Nitrogen 5 mg/dL (7-17); Calcium 8.9 mg/dL (8.4-10.2); Carbon Dioxide 29 mmol/L (22-32); Chloride 97 mmol/L (98-107); Creatine Kinase 34 U/L (30-135); Estimated Glomerular Filt Rate > 60.0 mL/min (>60); Globulin 3.3 g/dL (1.7-4.1); Glucose 261 mg/dL (70-100); HEMOLYSIS < 15 (0-50); Lipase 131 U/L (23-300); Sodium 134 mmol/L (137-145); Total Protein 7.2 g/dL (6.3-8.2)
[2020-03-15] MEDS: KETOROLAC 60 MG/2 ML VIAL 30 MG IV (13:36)
--- NOTE | 2020-03-15 13:36 | PC.NURSE ---
while medicating patient for pain, requesting IV fluids and and a sedative for her anxiety. Patient states she takes meds for anxiety and had her normal dose this morning but it isn't working. Provider aware. No orders at this time.
[2020-03-15 13:43] LABS: Troponin I < 0.012 ng/mL (0.01-0.034)
[2020-03-15 13:46] LABS: D Dimer 259 ng/mL (<230)
[2020-03-15 13:58] LABS: NT-proBNP (BNP-Adult 18+) 40 pg/mL (<125)
[2020-03-15] MEDS: LORazepam 2 MG/ML INJ 0.5 MG IV (14:16)
[2020-03-15] MEDS: SODIUM CHLORIDE 0.9% 1,000 ML 1000 ML IV (14:17)
--- NOTE | 2020-05-10 21:08 | PC.NURSE ---
IV NS 1000cc started by Michelle NICHOLSON at 1417 and discontinued at 1500 by me Ira Belle RN. 1000cc infused
== END 2020-03-15 15:05 | disposition home or self-care (01) ==
PROVIDERS: Emergency Provider Emergency Medicine; PCP Student in an Organized Health Care Education/Training Program
DX: F41.9 Anxiety disorder, unspecified (principal); R07.9 Chest pain, unspecified; I10 Essential (primary) hypertension; E78.5 Hyperlipidemia, unspecified; E11.9 Type 2 diabetes mellitus without complications; Z21 Asymptomatic human immunodeficiency virus [HIV] infection status
CPT/HCPCS: 36415; 71045; 80053; 82550; 83690; 83880; 84484; 85025; 85379; 85610; 85730; 93005; 96361; 96374; 96375; 99283; 99284; J1885; J2060

== ENCOUNTER 2020-04-20 12:53 | Emergency (ER) | payer MEDICARE, OTHER, SELFPAY ==
[2020-04-20] VITALS (10 sets, daily range): BP systolic 125–141; BP diastolic 61–79; PULSE 80–90; RESP 15–22; TEMP 36.3–36.8; O2SAT 93–100; BMI 28.8
--- NOTE | 2020-04-20 13:42 | ED_ITS ---
HPI - Abdominal Pain <Karla JUSTO Mireles - Last Filed: 04/20/20 16:10> General Chief Complaint: Urogenital-Female Stated Complaint: Urine is Really Really Brown Time Seen by Provider: 04/20/20 13:27 Source: patient Mode of arrival: Ambulatory Limitations: no limitations History of Present Illness HPI narrative: 49yo female with a history of HIV (viral load undetectable), DM II, hysterectomy, and COPD, presents to the emergency department complaining of intermittent dark urine over the past month. She recently developed right-sided flank pain and intermittent bladder pain. Patient denies any recent abdominal surgeries. Patient denies any fevers, dysuria, dizziness, nausea, vomiting, diarrhea, or any other concerns. Related Data Home Medications Medication Instructions Recorded Confirmed prazosin [Minipress] 1 mg PO BID #0 03/10/16 02/14/20 propranolol 80 mg PO QDAY #0 03/10/16 02/14/20 albuterol sulfate [Ventolin HFA] 2 puff INH BIDP PRN #0 09/03/16 02/14/20 bupropion HCl 75 mg PO BID #0 09/03/16 02/14/20 clonazepam 1 mg PO TID #0 09/03/16 02/14/20 fluticasone propionate [Flonase 1 spray INTRANASAL BID #0 09/03/16 02/14/20 Allergy Relief] insulin glargine [Lantus U-100 55 unit SQ HS #0 09/03/16 02/14/20 Insulin] [id number]-[id number]-[id number] 1 tab PO QDAY #0 11/24/16 02/14/20 [Triumeq] amitriptyline 50 mg PO HS #0 11/24/16 02/14/20 cetirizine 10 mg PO QDAY #0 11/24/16 02/14/20 dexlansoprazole [Dexilant] 60 mg PO QDAY #0 11/24/16 02/14/20 glimepiride [Amaryl] 4 mg PO BID #0 11/24/16 02/14/20 losartan 25 mg PO QDAY #0 11/24/16 02/14/20 metformin [Fortamet] 1,000 mg PO BID #0 11/24/16 02/14/20 tiotropium bromide [Spiriva with 1 puff INH QDAY #0 11/24/16 02/14/20 HandiHaler] atorvastatin [Lipitor] 80 mg PO QDAY #0 12/16/16 02/14/20 Previous Rx's Medication Instructions Recorded gabapentin 800 mg PO TID #90 12/27/16 meperidine [Demerol] 100 mg PO Q4P #60 tab 12/27/16 progesterone micronized 100 mg 100 mg PO QDAY #60 cap 08/16/19 capsule estradiol 1 mg tablet 1 mg PO DAILY #30 tab 11/14/19 estradiol 1 vaginalrin VAG [id number] #1 each 02/15/20 Allergies Allergy/AdvReac Type Severity Reaction Status Date / Time levofloxacin [LEVOFLOXACIN] Allergy Severe hives Verified 04/20/20 13:06 Sulfa (Sulfonamide Allergy Severe rash Verified 04/20/20 13:06 Antibiotics) [SULFA (SULFONAMIDE ANTIBIOTICS)] amoxicillin [From AUGMENTIN] Allergy Mild rash Verified 04/20/20 13:06 ciprofloxacin [From CIPRO] Allergy Mild rash Verified 04/20/20 13:06 clarithromycin [From BIAXIN] Allergy Mild rash Verified 04/20/20 13:06 clavulanic acid Allergy Mild rash Verified 04/20/20 13:06 [From AUGMENTIN] morphine [MORPHINE] AdvReac Mild n/v Verified 04/20/20 13:06 pregabalin [PREGABALIN] AdvReac Mild lost voice Verified 04/20/20 13:06 Review of Systems <JUSTO Hutton - Last Filed: 04/20/20 16:10> Review of Systems Narrative: REVIEW OF SYSTEMS: GENERAL: Denies fever. HENT: No head trauma. CARDIOVASCULAR: No chest pain. RESPIRATORY: No shortness of breath or cough. GASTROINTESTINAL: No nausea. GENITOURINARY: Reports Right flank pain and intermittent bladder pain, reports brown urine, see HPI. MUSCULOSKELETAL: No pain. INTEGUMENTARY: No rash. NEURO: No numbness or tingling. Patient History <JUSTO Hutton - Last Filed: 04/20/20 16:10> Medical History Anxiety Arthritis Bipolar disorder Depression Diabetes mellitus Fibroids GERD (gastroesophageal reflux disease) History of gastrointestinal symptoms HIV (human immunodeficiency virus infection) Hypertension PTSD (post-traumatic stress disorder) Surgical History History of cystoscopy (2013) History of stress incontinence procedure using tension free vaginal tape (2013) S/P functional endoscopic sinus surgery (2002) Status post arthroscopy (2003) Status post cholecystectomy (2011) Status post laparoscopic supracervical hysterectomy (2011) Family History Father Congestive heart failure Social History Smoking Status: Current every day smoker Smoking Status: Current every day smoker alcohol intake frequency: holidays/special occasions only Substance Use Type: marijuana Exam <JUSTO Hutton - Last Filed: 04/20/20 16:10> Initial Vital Signs Initial Vital Signs: Vital Signs Temperature 98.2 F 04/20/20 13:06 Pulse Rate 83 04/20/20 13:06 Respiratory Rate 15 04/20/20 13:06 Blood Pressure 134/77 04/20/20 13:06 Pulse Oximetry 100 04/20/20 13:06 PHYSICAL EXAMINATION: GENERAL: Awake and alert, no distress. HENT: Normocephalic, atraumatic. Hearing intact. Oral mucosa is pink and moist. EYES: Conjunctiva pink, sclera white, no periorbital swelling. CARDIOVASCULAR: Regular rate. RESPIRATORY: Normal respiratory rate, trachea midline, airway patent. No stridor, nasal flaring or accessory muscle use. Lungs are clear in all kothari without wheeze, rhonchi, or crackles. GASTROINTESTINAL: Bowel sounds normoactive. Abdomen is soft, lower bladder tenderness. No organomegaly, no palpable masses. GENITALURINARY: Right flank tenderness MUSCULOSKELETAL: Normal gait and coordination. Equal tone and mass bilaterally. EXTREMITIES: CMS intact, no pedal edema. SKIN: Warm, dry, soft, appropriate color for ethnicity. No lesions, rashes, or wounds to visualized areas. NEURO: Alert and Oriented X 3. Good coordination. No ataxia, or sensory deficits, or cognitive issues. PSYCH: Appropriate affect and mood. <Javon Arroyo DO - Last Filed: 04/20/20 18:36> Initial Vital Signs Initial Vital Signs: Vital Signs Temperature 98.2 F 04/20/20 13:06 Pulse Rate 83 04/20/20 13:06 Respiratory Rate 15 04/20/20 13:06 Blood Pressure 134/77 04/20/20 13:06 Pulse Oximetry 100 04/20/20 13:06 Course <Karla MirelesJUSTO - Last Filed: 04/20/20 16:10> Course Course Narrative: Given CT finding of ground glass opacity seen in lungs on abd CT, patient was swabbed for COVID-19 which was negative. Discussed with patient there labs and CT findings, discussed discharge was appropriate this time. Patient agreed to plan of care verbalized understanding. Orders Ordered: ED Orders 04/20/20 13:44 CT kidney ureter bladder (KUB) Stat 04/20/20 13:47 Complete Blood Count AUTO DIFF Stat Comprehensive Metabolic Panel Stat Lipase Stat Partial Thromboplastin Time Stat Prothrombin Time INR Stat 04/20/20 15:15 COVID19 Stat Reevaluation(s) Reevaluation #1: Patient staffed with Dr. Arroyo. Vital Signs Vital signs: Vital Signs - 8 hr 04/20/20 13:06 04/20/20 13:25 04/20/20 13:27 Temperature 98.2 F 97.3 F L Pulse Rate 83 80 Respiratory Rate 15 Blood Pressure 134/77 141/79 H Pulse Oximetry 100 97 04/20/20 13:30 04/20/20 14:20 04/20/20 14:23 Temperature Pulse Rate 90 82 80 Respiratory Rate 20 15 Blood Pressure 127/70 133/77 Pulse Oximetry 97 97 99 04/20/20 14:30 04/20/20 15:00 04/20/20 16:08 Temperature Pulse Rate 82 82 87 Respiratory Rate 19 22 Blood Pressure 126/70 136/73 Pulse Oximetry 95 93 99 04/20/20 16:09 Temperature Pulse Rate 87 Respiratory Rate Blood Pressure 125/61 Pulse Oximetry 98 <Javon Arroyo DO - Last Filed: 04/20/20 18:36> Orders Ordered: ED Orders 04/20/20 13:44 CT kidney ureter bladder (KUB) Stat 04/20/20 13:47 Complete Blood Count AUTO DIFF Stat Comprehensive Metabolic Panel Stat Lipase Stat Partial Thromboplastin Time Stat Prothrombin Time INR Stat 04/20/20 15:15 COVID19 Stat Vital Signs Vital signs: Vital Signs - 8 hr 04/20/20 13:06 04/20/20 13:25 04/20/20 13:27 Temperature 98.2 F 97.3 F L Pulse Rate 83 80 Respiratory Rate 15 Blood Pressure 134/77 141/79 H Pulse Oximetry 100 97 04/20/20 13:30 04/20/20 14:20 04/20/20 14:23 Temperature Pulse Rate 90 82 80 Respiratory Rate 20 15 Blood Pressure 127/70 133/77 Pulse Oximetry 97 97 99 04/20/20 14:30 04/20/20 15:00 04/20/20 16:08 Temperature Pulse Rate 82 82 87 Respiratory Rate 19 22 Blood Pressure 126/70 136/73 Pulse Oximetry 95 93 99 04/20/20 16:09 Temperature Pulse Rate 87 Respiratory Rate Blood Pressure 125/61 Pulse Oximetry 98 MDM - Abdominal Pain <JUSTO Hutton - Last Filed: 04/20/20 16:10> Medical Records Attestation: I reviewed the patient's medical records. Lab Data Attestation: I reviewed the patient's lab results. Result diagrams: 04/20/20 13:47 04/20/20 13:47 Labs: Lab Results 04/20/20 04/20/20 04/20/20 Range/Units 13:47 13:47 13:47 WBC 11.5 H (4.5-11.0) X10^3/uL RBC 5.15 (4.0-5.2) X10^6/uL Hgb 14.8 (12.0-16.0) g/dL Hct 45.1 (36-46) % MCV 87.7 (80-100) fL MCH 28.7 (26-34) PG MCHC 32.7 (30-36) % RDW 14.3 (11.6-14.8) % Plt Count 264 (150-400) X10^3/uL Neut % (Auto) 57.3 (50-75) % Lymph % (Auto) 29.7 (25-40) % Marion % (Auto) 4.6 (3-14) % Eos % (Auto) 7.6 H (2-4) % Baso % (Auto) 0.8 (0-2) % Neut # (Auto) 6600 (5531-6674) /uL Lymph # (Auto) 3400 (3012-2695) /uL Marion # (Auto) 500 (0-900) /uL Eos # (Auto) 900 H (0-450) /uL Baso # (Auto) 100 (0-100) /uL PT 11.9 (10.1-12.7) SECONDS INR 1.0 (0.9-1.3) APTT 31 (26.4-36.2) SECONDS Sodium 137 (137-145) mmol/L Potassium 3.8 (3.4-5.1) mmol/L Chloride 100 (98-107) mmol/L Carbon Dioxide 32 (22-32) mmol/L BUN 6 L (7-17) mg/dL Creatinine 0.60 (0.52-1.04) mg/dL Estimated GFR > 60.0 (>60) mL/min BUN/Creatinine Ratio 10.0 (6-22) Glucose 183 H (70-100) mg/dL Calcium 9.5 (8.4-10.2) mg/dL Total Bilirubin 0.3 (0.2-1.3) mg/dL AST 19 (14-36) IU/L ALT 16 (<35) IU/L Alkaline Phosphatase 84 (38-126) U/L Total Protein 7.9 (6.3-8.2) g/dL Albumin 4.2 (3.5-5.0) g/dL Globulin 3.7 (1.7-4.1) g/dL Albumin/Globulin Ratio 1.1 (1.0-2.8) Lipase 135 (23-300) U/L COVID-19 PCR (Negative) 04/20/20 Range/Units 15:15 WBC (4.5-11.0) X10^3/uL RBC (4.0-5.2) X10^6/uL Hgb (12.0-16.0) g/dL Hct (36-46) % MCV (80-100) fL MCH (26-34) PG MCHC (30-36) % RDW (11.6-14.8) % Plt Count (150-400) X10^3/uL Neut % (Auto) (50-75) % Lymph % (Auto) (25-40) % Marion % (Auto) (3-14) % Eos % (Auto) (2-4) % Baso % (Auto) (0-2) % Neut # (Auto) (1739-3548) /uL Lymph # (Auto) (3884-6999) /uL Marion # (Auto) (0-900) /uL Eos # (Auto) (0-450) /uL Baso # (Auto) (0-100) /uL PT (10.1-12.7) SECONDS INR (0.9-1.3) APTT (26.4-36.2) SECONDS Sodium (137-145) mmol/L Potassium (3.4-5.1) mmol/L Chloride (98-107) mmol/L Carbon Dioxide (22-32) mmol/L BUN (7-17) mg/dL Creatinine (0.52-1.04) mg/dL Estimated GFR (>60) mL/min BUN/Creatinine Ratio (6-22) Glucose (70-100) mg/dL Calcium (8.4-10.2) mg/dL Total Bilirubin (0.2-1.3) mg/dL AST (14-36) IU/L ALT (<35) IU/L Alkaline Phosphatase (38-126) U/L Total Protein (6.3-8.2) g/dL Albumin (3.5-5.0) g/dL Globulin (1.7-4.1) g/dL Albumin/Globulin Ratio (1.0-2.8) Lipase (23-300) U/L COVID-19 PCR Negative (Negative) Point of care testing: Urine Dip Bedside Urine Glucose Negative Bedside Urine Bilirubin - Negative Bedside Urine Ketone - Negative Urine Specific Slinger 1.015 Bedside Urine Occult Blood - Negative Bedside Urine pH 6 Bedside Urine Protein - Negative Bedside Urine Urobilinogen - Negative Bedside Urine Nitrite - Negative Bedside Urine Leukocytes - Negative Esterase Imaging Data CT scan - abdomen/pelvis: Radiologist's Impression: [address] [id number] Scan ReportSigned Patient: Shelbie Purdy [facility]#: [id number]: 1970Acct:[id number]/Sex: 49 / FDate of Service: 04/20/20Loc: EDAccession Number: [id number] Procedure: CT kidney ureter bladder (KUB) Ordering Provider: Hedlin,Karla [employer]ID[employer] TEACHER PROCEDURE: CT KIDNEY URETER BLADDER (KUB) INDICATIONS: R flank pain, dark urine, r/o renal calculi TECHNIQUE: Noncontrast 5 mm thick sections acquired from the diaphragms to the symphysis. 5 mm thick coronal and sagittal reformats were then performed. For radiation dose reduction, the following was used: automated exposure control, adjustment of mA and/or kV according to patient size. COMPARISON: [facility], CT, KIDNEY/ URETER/BLADDER, 06/09/2011, 20:31. FINDINGS: Image quality: Excellent. Lung bases: Minor ground-glass opacity centrally in the left lung. No dense consolidations or effusions. Heart size is normal. Urinary system: There is a single punctate calcification in the right lower pole, and two nonobstructing left lower pole calcifications, the largest measures 5.5 mm. No hydronephrosis in either kidney. No hydroureter or ureteral calcifications on either side. The urinary bladder is decompressed. No bladder calcifications. Other solid organs: The liver is mildly enlarged and the margin is micronodular. The caudate lobe is particularly prominent. There is a hypodensity laterally in the liver, about 1.8 cm in size, stable compared to remote prior study. The gallbladder is surgically absent. Adrenal glands, and pancreas appear normal. The spleen is slightly enlarged at 13.8 cm in length. Peritoneum and bowel: Unenhanced bowel loops demonstrate normal wall thickness and caliber. No free fluid or air. Nodes and vessels: No retroperitoneal or mesenteric adenopathy by size criteria. Aorta and inferior vena cava are normal in caliber. Abdominal wall: No ventral hernias. Pelvis: No free pelvic fluid. No inguinal hernias or adenopathy. There is been probable supracervical hysterectomy. Ring-like device at vaginal canal apex. Bones: No suspicious bony lesions. L5-S1 fusion. No vertebral body compre ssion fractures. IMPRESSION: 1. Bilateral nonobstructing intrarenal calcifications. 2. No CT evidence of obstructive uropathy. 3. Hepatomegaly and liver morphology suspicious for cirrhosis. 4. Hysterectomy and cholecystectomy. 5. Minor ground-glass opacity in the left lung. Correlate with pulmonary symptoms. Dictated by: Edelmira Peralta M.D. on 04/20/2020 at 14:43 Approved by: Edelmira Peralta M.D. on 04/20/2020 at 14:50 [facility] Narrative Medical decision making narrative: 49-year-old female presents emergency de partment with intermittent bladder pain and dark urine. I am unsure the exact cause of the symptoms, differential includes dehydration versus passage of renal calculi. Less likely acute infection given lack of white blood cells in urine, patient did have a slightly elevated white blood cell count of 11. However, I suspect this is most likely incidental given lack of fever, severe pain, suspicious findings on CT, lack of tachycardia, or other infectious findings in your urine. Less concern for other pelvic infection such as PID given patient has had a hysterectomy. Less concern for liver etiology given normal bilirubin and lack of other findings. However, patient has incidental/suspected cirrhosis on CT. Incidental ground-glass opacity found on CT, patient did not have any respiratory symptoms. This may be related to COPD. However COVID-19 test was ordered to rule out any infection. This was negative. Patient was counseled extensively to follow-up with PCP for any new or worsening symptoms. She was encouraged to have repeat COVID testing if she develops any symptoms. Return precautions given for new or worsening symptoms, she agrees plan of care verbalized understanding. <Javon Arroyo, DO - Last Filed: 04/20/20 18:36> Lab Data Labs: Lab Results 04/20/20 04/20/20 04/20/20 Range/Units 13:47 13:47 13:47 WBC 11.5 H (4.5-11.0) X10^3/uL RBC 5.15 (4.0-5.2) X10^6/uL Hgb 14.8 (12.0-16.0) g/dL Hct 45.1 (36-46) % MCV 87.7 (80-100) fL MCH 28.7 (26-34) PG MCHC 32.7 (30-36) % RDW 14.3 (11.6-14.8) % Plt Count 264 (150-400) X10^3/uL Neut % (Auto) 57.3 (50-75) % Lymph % (Auto) 29.7 (25-40) % Marion % (Auto) 4.6 (3-14) % Eos % (Auto) 7.6 H (2-4) % Baso % (Auto) 0.8 (0-2) % Neut # (Auto) 6600 (1200-8933) /uL Lymph # (Auto) 3400 (7652-6629) /uL Marion # (Auto) 500 (0-900) /uL Eos # (Auto) 900 H (0-450) /uL Baso # (Auto) 100 (0-100) /uL PT 11.9 (10.1-12.7) SECONDS INR 1.0 (0.9-1.3) APTT 31 (26.4-36.2) SECONDS Sodium 137 (137-145) mmol/L Potassium 3.8 (3.4-5.1) mmol/L Chloride 100 (98-107) mmol/L Carbon Dioxide 32 (22-32) mmol/L BUN 6 L (7-17) mg/dL Creatinine 0.60 (0.52-1.04) mg/dL Estimated GFR > 60.0 (>60) mL/min BUN/Creatinine Ratio 10.0 (6-22) Glucose 183 H (70-100) mg/dL Calcium 9.5 (8.4-10.2) mg/dL Total Bilirubin 0.3 (0.2-1.3) mg/dL AST 19 (14-36) IU/L ALT 16 (<35) IU/L Alkaline Phosphatase 84 (38-126) U/L Total Protein 7.9 (6.3-8.2) g/dL Albumin 4.2 (3.5-5.0) g/dL Globulin 3.7 (1.7-4.1) g/dL Albumin/Globulin Ratio 1.1 (1.0-2.8) Lipase 135 (23-300) U/L COVID-19 PCR (Negative) 04/20/20 Range/Units 15:15 WBC (4.5-11.0) X10^3/uL RBC (4.0-5.2) X10^6/uL Hgb (12.0-16.0) g/dL Hct (36-46) % MCV (80-100) fL MCH (26-34) PG MCHC (30-36) % RDW (11.6-14.8) % Plt Count (150-400) X10^3/uL Neut % (Auto) (50-75) % Lymph % (Auto) (25-40) % Marion % (Auto) (3-14) % Eos % (Auto) (2-4) % Baso % (Auto) (0-2) % Neut # (Auto) (6104-0465) /uL Lymph # (Auto) (6228-3508) /uL Marion # (Auto) (0-900) /uL Eos # (Auto) (0-450) /uL Baso # (Auto) (0-100) /uL PT (10.1-12.7) SECONDS INR (0.9-1.3) APTT (26.4-36.2) SECONDS Sodium (137-145) mmol/L Potassium (3.4-5.1) mmol/L Chloride (98-107) mmol/L Carbon Dioxide (22-32) mmol/L BUN (7-17) mg/dL Creatinine (0.52-1.04) mg/dL Estimated GFR (>60) mL/min BUN/Creatinine Ratio (6-22) Glucose (70-100) mg/dL Calcium (8.4-10.2) mg/dL Total Bilirubin (0.2-1.3) mg/dL AST (14-36) IU/L ALT (<35) IU/L Alkaline Phosphatase (38-126) U/L Total Protein (6.3-8.2) g/dL Albumin (3.5-5.0) g/dL Globulin (1.7-4.1) g/dL Albumin/Globulin Ratio (1.0-2.8) Lipase (23-300) U/L COVID-19 PCR Negative (Negative) Point of care testing: Urine Dip Bedside Urine Glucose Negative Bedside Urine Bilirubin - Negative Bedside Urine Ketone - Negative Urine Specific Slinger 1.015 Bedside Urine Occult Blood - Negative Bedside Urine pH 6 Bedside Urine Protein - Negative Bedside Urine Urobilinogen - Negative Bedside Urine Nitrite - Negative Bedside Urine Leukocytes - Negative Esterase Discharge Plan Departure Patient Disposition: Home Clinical Impression: Abdominal pain Qualifiers: Abdominal location: unspecified location Qualified Code(s): R10.9 - Unspecified abdominal pain Instructions: DI for Abdominal Pain-Adult Activity Restrictions/Additional Instructions: Thank you for entrusting me with your care today. As discussed, your CT showed some changes in your liver suspicious for cirrhosis, there is a minor ground- glass of PC in the left lung, and some nonobstructing kidney calcifications. Your laboratory work and urinalysis are non-remarkable. I am unsure the exact cause of your pain or dark urine. One cause may be dehydration, I do recommend drinking plenty of water. Please follow-up with your primary care provider in the next 1-2 weeks for further evaluation and testing. Return emergency department for any new or worsening symptoms especially fever, severe pain, uncontrollable vomiting, or any other concerns. Your COVID-19 test was negative. Prescriptions: No Action propranolol 80 MG capsule,extended release 24 hr 80 mg PO QDAY Qty: 0 RF: 0 prazosin [Minipress] 1 MG capsule 1 mg PO BID Qty: 0 RF: 0 bupropion HCl 75 MG tablet 75 mg PO BID Qty: 0 RF: 0 albuterol sulfate [Ventolin HFA] 90 MCG/PUFF HFA aerosol inhaler 2 puff INH BIDP PRNQty: 0 RF: 0 clonazepam 1 MG tablet 1 mg PO TID Qty: 0 RF: 0 insulin glargine [Lantus U-100 Insulin] 100 UNIT/1 ML solution 55 unit SQ HS Qty: 0 RF: 0 fluticasone propionate [Flonase Allergy Relief] 9.9 ML spray,suspension 1 spray Intranasal BID Qty: 0 RF: 0 [id number]-sjwldig [Triumeq] 1 EACH tablet 1 tab PO QDAY Qty: 0 RF: 0 dexlansoprazole [Dexilant] 60 MG capsule,biphase delayed releas 60 mg PO QDAY Qty: 0 RF: 0 amitriptyline 50 MG tablet 50 mg PO HS Qty: 0 RF: 0 cetirizine 10 MG tablet 10 mg PO QDAY Qty: 0 RF: 0 glimepiride [Amaryl] 4 MG tablet 4 mg PO BID Qty: 0 RF: 0 losartan 25 MG tablet 25 mg PO QDAY Qty: 0 RF: 0 metformin [Fortamet] 1,000 MG tablet extended release 24hr 1,000 mg PO BID Qty: 0 RF: 0 tiotropium bromide [Spiriva with HandiHaler] 18 MCG capsule, w/inhalation device 1 puff INH QDAY Qty: 0 RF: 0 atorvastatin [Lipitor] 80 MG tablet 80 mg PO QDAY Qty: 0 RF: 0 gabapentin 800 MG tablet 800 mg PO TID Qty: 90 RF: 1 meperidine [Demerol] 100 MG tablet 100 mg PO Q4P Qty: 60 RF: 0 progesterone micronized [Prometrium] 100 mg capsule 100 mg PO QDAY Qty: 60 RF: 0 estradiol 1 mg tablet 1 mg PO DAILY Qty: 30 RF: 6 Estring 2 mg (7.5 mcg /24 hour) ring 1 vaginalrin VAG [id number] Qty: 1 RF: 4 Referrals: Lorena Cook DO [Primary Care Provider] - <Javon Arroyo DO - Last Filed: 04/20/20 18:36> Cosign ED Attending Cosignature Attestation: I was immediately available in the department for consultation. This documentation has been reviewed and I agree with assessment and plan. Supervised by Javon Arroyo DO
[2020-04-20 14:03] LABS: Add Manual Diff / Slide Review NO; Basophils Absolute Auto 100 /uL (0-100); Basophils Percent Auto 0.8 % (0-2); Eosinophils Absolute Auto 900 /uL (0-450); Eosinophils Percent Auto 7.6 % (2-4); Hematocrit 45.1 % (36-46); Hemoglobin 14.8 g/dL (12.0-16.0); Lymphocytes Absolute Auto 3400 /uL (1100-4500); Lymphocytes Percent Auto 29.7 % (25-40); Mean Corpuscular HGB Conc 32.7 % (30-36); Mean Corpuscular Hemoglobin 28.7 PG (26-34); Mean Corpuscular Volume 87.7 fL (80-100); Monocytes Absolute Auto 500 /uL (0-900); Monocytes Percent Auto 4.6 % (3-14); Neutrophils Absolute Auto 6600 /uL (1500-7000); Neutrophils Percent Auto 57.3 % (50-75); Platelet Count 264 X10^3/uL (150-400); Red Blood Cell Count 5.15 X10^6/uL (4.0-5.2); Red Cell Distribution Width 14.3 % (11.6-14.8); White Blood Cell Count 11.5 X10^3/uL (4.5-11.0)
[2020-04-20 14:09] LABS: Prothrombin Time 11.9 SECONDS (10.1-12.7)
[2020-04-20 14:11] LABS: PTT Partial Thromboplastin Tim 31 SECONDS (26.4-36.2)
[2020-04-20 14:14] LABS: Alanine Aminotransferase 16 IU/L (<35); Albumin 4.2 g/dL (3.5-5.0); Albumin Globulin Ratio 1.1 (1.0-2.8); Alkaline Phosphatase 84 U/L (38-126); Aspartate Aminotransferase 19 IU/L (14-36); Bilirubin Total 0.3 mg/dL (0.2-1.3); Blood Urea Nitrogen 6 mg/dL (7-17); Calcium 9.5 mg/dL (8.4-10.2); Carbon Dioxide 32 mmol/L (22-32); Chloride 100 mmol/L (98-107); Estimated Glomerular Filt Rate > 60.0 mL/min (>60); Globulin 3.7 g/dL (1.7-4.1); Glucose 183 mg/dL (70-100); HEMOLYSIS < 15 (0-50); Lipase 135 U/L (23-300); Potassium 3.8 mmol/L (3.4-5.1); Sodium 137 mmol/L (137-145); Total Protein 7.9 g/dL (6.3-8.2)
[2020-04-20 15:50] LABS: COVID19 -Nasal RAPID Negative (Negative)
== END 2020-04-20 16:19 | disposition home or self-care (01) ==
PROVIDERS: Emergency Medicine; Emergency Provider Nurse Practitioner; PCP Student in an Organized Health Care Education/Training Program
DX: R10.9 Unspecified abdominal pain (principal); E11.9 Type 2 diabetes mellitus without complications; J44.9 Chronic obstructive pulmonary disease, unspecified; D72.829 Elevated white blood cell count, unspecified; Z20.828 Contact with and (suspected) exposure to other viral communicable diseases; B20 Human immunodeficiency virus [HIV] disease
CPT/HCPCS: 36415; 74176; 80053; 81003; 83690; 85025; 85610; 85730; 87635; 99283; 99284

== ENCOUNTER 2020-05-01 02:00 | Emergency (ER) | payer MEDICARE, OTHER, SELFPAY ==
[2020-05-01 02:00] VITALS: BP 174/84; PULSE 113; RESP 21; TEMP 36.1; O2SAT 99
[2020-05-01 02:25] LABS: Add Manual Diff / Slide Review NO; Basophils Absolute Auto 100 /uL (0-100); Basophils Percent Auto 0.7 % (0-2); Eosinophils Absolute Auto 0 /uL (0-450); Hematocrit 44.5 % (36-46); Hemoglobin 14.3 g/dL (12.0-16.0); Lymphocytes Absolute Auto 1100 /uL (1100-4500); Lymphocytes Percent Auto 10.6 % (25-40); Mean Corpuscular HGB Conc 32.1 % (30-36); Mean Corpuscular Hemoglobin 28.9 PG (26-34); Mean Corpuscular Volume 89.9 fL (80-100); Monocytes Absolute Auto 200 /uL (0-900); Monocytes Percent Auto 1.5 % (3-14); Neutrophils Absolute Auto 8800 /uL (1500-7000); Neutrophils Percent Auto 87.2 % (50-75); Platelet Count 229 X10^3/uL (150-400); Red Blood Cell Count 4.95 X10^6/uL (4.0-5.2); Red Cell Distribution Width 14.4 % (11.6-14.8); White Blood Cell Count 10.1 X10^3/uL (4.5-11.0)
[2020-05-01 02:32] LABS: Albumin 4.2 g/dL (3.5-5.0); Albumin Globulin Ratio 1.2 (1.0-2.8); Alkaline Phosphatase 91 U/L (38-126); Aspartate Aminotransferase 28 IU/L (14-36); BUN Creatinine Ratio 15.9 (6-22); Bilirubin Total 0.2 mg/dL (0.2-1.3); Blood Urea Nitrogen 11 mg/dL (7-17); Calcium 9.6 mg/dL (8.4-10.2); Carbon Dioxide 20 mmol/L (22-32); Chloride 94 mmol/L (98-107); Estimated Glomerular Filt Rate > 60.0 mL/min (>60); Globulin 3.4 g/dL (1.7-4.1); HEMOLYSIS 20 (0-50); Potassium 4.5 mmol/L (3.4-5.1); Sodium 128 mmol/L (137-145); Total Protein 7.6 g/dL (6.3-8.2)
[2020-05-01 02:38] LABS: Alanine Aminotransferase 31 IU/L (<35)
[2020-05-01 02:41] LABS: Glucose 708 mg/dL (70-100)
[2020-05-01] MEDS: SODIUM CHLORIDE 0.9% 1,000 ML 1000 ML IV ×2 (02:54→03:39)
--- NOTE | 2020-05-01 03:18 | ED.GENADULT ---
HPI - General Adult General Chief complaint: Diabetic Problem Stated complaint: blood sugar problem Time Seen by Provider: 05/01/20 02:40 Source: patient Mode of arrival: Ambulatory Limitations: no limitations History of Present Illness HPI narrative: Patient is a 41-year-old female with history of type 2 diabetes and HIV chronic back pain presenting today with hyperglycemia. She received a steroid injection this afternoon at around 2 or 3. She started not feeling well and checked her sugar and it read high she checked it again and continue to read eye. She says usually her glucose is around 2-300 she says it is not as help control the as it was previously. Day do not have room for fruits and vegetables in their RV. She feels slightly nauseous but no vomiting or abdominal pain she has not had any fever. I Related Data Home Medications Medication Instructions Recorded Confirmed prazosin [Minipress] 1 mg PO BID #0 03/10/16 02/14/20 propranolol 80 mg PO QDAY #0 03/10/16 02/14/20 albuterol sulfate [Ventolin HFA] 2 puff INH BIDP PRN #0 09/03/16 02/14/20 bupropion HCl 75 mg PO BID #0 09/03/16 02/14/20 clonazepam 1 mg PO TID #0 09/03/16 02/14/20 fluticasone propionate [Flonase 1 spray INTRANASAL BID #0 09/03/16 02/14/20 Allergy Relief] xyoamkjy-yuxvbgwjwcfl-kinoica 1 tab PO QDAY #0 11/24/16 02/14/20 [Triumeq] amitriptyline 50 mg PO HS #0 11/24/16 02/14/20 cetirizine 10 mg PO QDAY #0 11/24/16 02/14/20 dexlansoprazole [Dexilant] 60 mg PO QDAY #0 11/24/16 02/14/20 glimepiride [Amaryl] 4 mg PO BID #0 11/24/16 02/14/20 losartan 25 mg PO QDAY #0 11/24/16 02/14/20 metformin [Fortamet] 1,000 mg PO BEDTIME #0 11/24/16 05/01/20 tiotropium bromide [Spiriva with 1 puff INH QDAY #0 11/24/16 02/14/20 HandiHaler] atorvastatin [Lipitor] 80 mg PO QDAY #0 12/16/16 02/14/20 metformin 500 mg PO DAILY 05/01/20 05/01/20 Previous Rx's Medication Instructions Recorded gabapentin 800 mg PO TID #90 12/27/16 meperidine [Demerol] 100 mg PO Q4P #60 tab 12/27/16 progesterone micronized 100 mg 100 mg PO QDAY #60 cap 08/16/19 capsule estradiol 1 mg tablet 1 mg PO DAILY #30 tab 11/14/19 estradiol 1 vaginalrin VAG [id number] #1 each 02/15/20 Allergies Allergy/AdvReac Type Severity Reaction Status Date / Time levofloxacin [LEVOFLOXACIN] Allergy Severe hives Verified 04/20/20 13:06 Sulfa (Sulfonamide Allergy Severe rash Verified 04/20/20 13:06 Antibiotics) [SULFA (SULFONAMIDE ANTIBIOTICS)] amoxicillin [From AUGMENTIN] Allergy Mild rash Verified 04/20/20 13:06 ciprofloxacin [From CIPRO] Allergy Mild rash Verified 04/20/20 13:06 clarithromycin [From BIAXIN] Allergy Mild rash Verified 04/20/20 13:06 clavulanic acid Allergy Mild rash Verified 04/20/20 13:06 [From AUGMENTIN] morphine [MORPHINE] AdvReac Mild n/v Verified 04/20/20 13:06 pregabalin [PREGABALIN] AdvReac Mild lost voice Verified 04/20/20 13:06 Review of Systems Review of Systems Narrative: GENERAL: Denies chills, fatigue, malaise, fever, sweats, travel HEENT: Denies sinus pain, ear pain, sore throat, difficulty swallowing, neck pain RESPIRATORY: Denies dyspnea, cough, wheezing, hemoptysis, sputum. CARDIOVASCULAR: Denies chest pain, palpitations, orthopnea, edema GASTROINTESTINAL: + nausea Denies vomiting, abdominal pain, diarrhea, constipation, melena. : Denies dysuria, frequency, incontinence, hematuria, urinary retention, flank pain. MUSCULOSKELETAL: Denies weakness, joint pain, or bony pain SKIN: No rash, no erythema, no pruritus NEUROLOGIC: Denies weakness, dizziness, headache, numbness, change in speech, confusion PSYCHIATRIC: No concerning psychosocial issues. 12 point review of systems is negative except for those stated above and HPI Patient History Medical History Anxiety Arthritis Bipolar disorder Depression Diabetes mellitus Fibroids GERD (gastroesophageal reflux disease) History of gastrointestinal symptoms HIV (human immunodeficiency virus infection) Hypertension PTSD (post-traumatic stress disorder) Surgical History History of cystoscopy (2013) History of stress incontinence procedure using tension free vaginal tape (2013) S/P functional endoscopic sinus surgery (2002) Status post arthroscopy (2003) Status post cholecystectomy (2011) Status post laparoscopic supracervical hysterectomy (2011) Family History Father Congestive heart failure Social History Smoking Status: Current every day smoker Smoking Status: Current every day smoker alcohol intake frequency: holidays/special occasions only Substance Use Type: marijuana Exam Initial Vital Signs Initial Vital Signs: Vital Signs Temperature 97 F L 05/01/20 02:00 Pulse Rate 113 H 05/01/20 02:00 Respiratory Rate 21 05/01/20 02:00 Blood Pressure 174/84 H 05/01/20 02:00 Pulse Oximetry 99 05/01/20 02:00 GENERAL: Well-appearing, well-nourished and in no acute distress. HEENT: Head atraumatic,EOMI, pupils reactive, face symmetric, moist mucous membranes CARDIOVASCULAR: Regular rate and rhythm without murmurs, rubs or gallops. RESPIRATORY: Breath sounds equal bilaterally, no wheezes rales or rhonchi. ABDOMEN: Soft, nontender. Normoactive bowel sounds all 4 quadrants. No guarding or rebound. EXTREMITIES: Normal range of motion, no clubbing or edema. Neurovascularly intact NEUROLOGICAL: Alert and oriented x4.Normal gait and speech. SKIN: Warm, dry, no laceration, no petechiae, no rashes or lesions. Course Orders Ordered: ED Orders 05/01/20 02:15 CMP [Comprehensive Metabolic Panel] Stat Complete Blood Count AUTO DIFF Stat Sodium Chloride (Normal Saline 0.9%) 1,000 mls @ 1,000 mls/hr IV BOLUS ONE Stop: 05/01/20 04:24 Last Admin: 05/01/20 03:39 Dose: 1,000 mls/hr Documented by: ENOC Discontinued Medications Sodium Chloride (Normal Saline 0.9%) 1,000 mls @ 1,000 mls/hr IV BOLUS ONE Stop: 05/01/20 03:39 Last Infusion: 05/01/20 03:40 Dose: 0 mls/hr Documented by: Admin: 05/01/20 02:54 Dose: 1,000 mls/hr Documented by: ENOC Ondansetron HCl (Ondansetron 4 Mg/2 Ml Inj) 4 mg IV NOW ONE Stop: 05/01/20 03:26 Last Admin: 05/01/20 03:40 Dose: 4 mg Documented by: ENOC Vital Signs Vital signs: Vital Signs - 8 hr 05/01/20 02:00 05/01/20 04:00 Temperature 97 F L Pulse Rate 113 H 90 Respiratory Rate 21 18 Blood Pressure 174/84 H 130/68 Pulse Oximetry 99 96 Medical Decision Making Lab Data Lab results reviewed: Yes I reviewed the patient's lab results. Result diagrams: 05/01/20 02:15 05/01/20 02:15 Labs: Lab Results 05/01/20 05/01/20 Range/Units 02:15 02:15 WBC 10.1 (4.5-11.0) X10^3/uL RBC 4.95 (4.0-5.2) X10^6/uL Hgb 14.3 (12.0-16.0) g/dL Hct 44.5 (36-46) % MCV 89.9 (80-100) fL MCH 28.9 (26-34) PG MCHC 32.1 (30-36) % RDW 14.4 (11.6-14.8) % Plt Count 229 (150-400) X10^3/uL Neut % (Auto) 87.2 H (50-75) % Lymph % (Auto) 10.6 L (25-40) % Payne % (Auto) 1.5 L (3-14) % Eos % (Auto) 0.0 L (2-4) % Baso % (Auto) 0.7 (0-2) % Neut # (Auto) 8800 H (5061-6513) /uL Lymph # (Auto) 1100 (9052-4140) /uL Payne # (Auto) 200 (0-900) /uL Eos # (Auto) 0 (0-450) /uL Baso # (Auto) 100 (0-100) /uL Sodium 128 L (137-145) mmol/L Potassium 4.5 (3.4-5.1) mmol/L Chloride 94 L (98-107) mmol/L Carbon Dioxide 20 L (22-32) mmol/L BUN 11 (7-17) mg/dL Creatinine 0.69 (0.52-1.04) mg/dL Estimated GFR > 60.0 (>60) mL/min BUN/Creatinine Ratio 15.9 (6-22) Glucose 708 H* (70-100) mg/dL Calcium 9.6 (8.4-10.2) mg/dL Total Bilirubin 0.2 (0.2-1.3) mg/dL AST 28 (14-36) IU/L ALT 31 (<35) IU/L Alkaline Phosphatase 91 (38-126) U/L Total Protein 7.6 (6.3-8.2) g/dL Albumin 4.2 (3.5-5.0) g/dL Globulin 3.4 (1.7-4.1) g/dL Albumin/Globulin Ratio 1.2 (1.0-2.8) Point of Care Testing Glucose POC 470 Urine Dip Bedside Urine Glucose 1000 mg/dl Bedside Urine Bilirubin - Negative Bedside Urine Ketone - Negative Urine Specific [place] 1.010 Bedside Urine Occult Blood - Negative Bedside Urine pH 6.0 Bedside Urine Protein - Negative Bedside Urine Urobilinogen +/- 1mg Bedside Urine Nitrite - Negative Bedside Urine Leukocytes - Negative Esterase Point of care testing: Point of Care Testing Glucose POC 470 Urine Dip Bedside Urine Glucose 1000 mg/dl Bedside Urine Bilirubin - Negative Bedside Urine Ketone - Negative Urine Specific [place] 1.010 Bedside Urine Occult Blood - Negative Bedside Urine pH 6.0 Bedside Urine Protein - Negative Bedside Urine Urobilinogen +/- 1mg Bedside Urine Nitrite - Negative Bedside Urine Leukocytes - Negative Esterase [facility] Narrative Medical decision making narrative: After 1 L of fluid patient's POC glucose is below 500. Overall feeling better with Zofran. No sign of DKA. Hyponatremia corrects with correction of glucose which is 138. Hyperglycemia is likely related to steroid injection today. There is no sign of DKA or infection. Discharge Plan Departure Patient Disposition: Home Clinical Impression: Acute hyperglycemia Instructions: DI for Diabetes Type 2 Activity Restrictions/Additional Instructions: *You have been diagnosed with hyperglycemia *What to do: Your sugar is likely elevated from her steroid injection shot today. I anticipate your glucose to return to normal over the next few days. Continue to increase your fluid intake *Continue to take medications as directed *Follow up with your primary care provider in 2-3 days *Return to ER if you should have abdominal pain nausea vomiting fever or any new, worsening or concerning symptoms Prescriptions: No Action propranolol 80 MG capsule,extended release 24 hr 80 mg PO QDAY Qty: 0 RF: 0 prazosin [Minipress] 1 MG capsule 1 mg PO BID Qty: 0 RF: 0 bupropion HCl 75 MG tablet 75 mg PO BID Qty: 0 RF: 0 albuterol sulfate [Ventolin HFA] 90 MCG/PUFF HFA aerosol inhaler 2 puff INH BIDP PRNQty: 0 RF: 0 clonazepam 1 MG tablet 1 mg PO TID Qty: 0 RF: 0 fluticasone propionate [Flonase Allergy Relief] 9.9 ML spray,suspension 1 spray Intranasal BID Qty: 0 RF: 0 lirphico-ayzyjtuaaldk-gwbqdth [Triumeq] 1 EACH tablet 1 tab PO QDAY Qty: 0 RF: 0 dexlansoprazole [Dexilant] 60 MG capsule,biphase delayed releas 60 mg PO QDAY Qty: 0 RF: 0 amitriptyline 50 MG tablet 50 mg PO HS Qty: 0 RF: 0 cetirizine 10 MG tablet 10 mg PO QDAY Qty: 0 RF: 0 glimepiride [Amaryl] 4 MG tablet 4 mg PO BID Qty: 0 RF: 0 losartan 25 MG tablet 25 mg PO QDAY Qty: 0 RF: 0 metformin [Fortamet] 1,000 MG tablet extended release 24hr 1,000 mg PO BEDTIME Qty: 0 RF: 0 tiotropium bromide [Spiriva with HandiHaler] 18 MCG capsule, w/inhalation device 1 puff INH QDAY Qty: 0 RF: 0 atorvastatin [Lipitor] 80 MG tablet 80 mg PO QDAY Qty: 0 RF: 0 gabapentin 800 MG tablet 800 mg PO TID Qty: 90 RF: 1 meperidine [Demerol] 100 MG tablet 100 mg PO Q4P Qty: 60 RF: 0 progesterone micronized [Prometrium] 100 mg capsule 100 mg PO QDAY Qty: 60 RF: 0 estradiol 1 mg tablet 1 mg PO DAILY Qty: 30 RF: 6 Estring 2 mg (7.5 mcg /24 hour) ring 1 vaginalrin VAG [id number] Qty: 1 RF: 4 metformin 500 mg Tablet 500 mg PO DAILY RF: 0 Referrals: Lorena Cook DO [Primary Care Provider] -
[2020-05-01] MEDS: ONDANSETRON 4 MG/2 ML INJ IV (03:40)
[2020-05-01 04:00] VITALS: BP 130/68; PULSE 90; RESP 18; O2SAT 96
--- NOTE | 2020-05-01 04:22 | PC.NURSE ---
She feels better,nausea improved,calm and co-operative.
[2020-05-01 04:37] VITALS: BP 139/84; PULSE 90; RESP 18; O2SAT 97
== END 2020-05-01 04:38 | disposition home or self-care (01) ==
PROVIDERS: Emergency Provider Emergency Medicine; PCP Student in an Organized Health Care Education/Training Program
DX: E11.65 Type 2 diabetes mellitus with hyperglycemia (principal); E87.1 Hypo-osmolality and hyponatremia
CPT/HCPCS: 36415; 80053; 81003; 82962; 85025; 96365; 96366; 96375; 99282; 99284; J2405

== ENCOUNTER 2020-05-10 14:41 | Emergency (ER) | payer MEDICARE, OTHER, SELFPAY ==
[2020-05-10 14:47] VITALS: PULSE 107; RESP 22; TEMP 37.2; O2SAT 97
--- NOTE | 2020-05-10 14:51 | DI.RAD.S_ITS ---
PROCEDURE: XR CHEST 1V INDICATIONS: chest pain TECHNIQUE: One view of the chest was acquired. COMPARISON: [facility], CR, XR CHEST 1V, 03/15/2020, 12:44. FINDINGS: Surgical changes and devices: None. Lungs and pleura: Lungs are clear. No pleural effusions or pneumothorax. Mediastinum: Mediastinal contours appear normal. Heart size is normal. Bones and chest wall: No suspicious bony lesions. Overlying soft tissues appear unremarkable. IMPRESSION: No acute cardiopulmonary disease process. Dictated by: Fe Light MD, PhD on 05/10/2020 at 15:43 Approved by: Fe Light MD, PhD on 05/10/2020 at 15:45
[2020-05-10 15:13] LABS: Add Manual Diff / Slide Review NO; Basophils Absolute Auto 100 /uL (0-100); Basophils Percent Auto 1.4 % (0-2); Eosinophils Absolute Auto 400 /uL (0-450); Eosinophils Percent Auto 4.7 % (2-4); Hematocrit 43.9 % (36-46); Hemoglobin 14.5 g/dL (12.0-16.0); Lymphocytes Absolute Auto 3300 /uL (1100-4500); Lymphocytes Percent Auto 34.1 % (25-40); Mean Corpuscular HGB Conc 33.1 % (30-36); Mean Corpuscular Hemoglobin 28.8 PG (26-34); Mean Corpuscular Volume 86.9 fL (80-100); Monocytes Absolute Auto 400 /uL (0-900); Monocytes Percent Auto 4.3 % (3-14); Neutrophils Absolute Auto 5300 /uL (1500-7000); Neutrophils Percent Auto 55.5 % (50-75); Platelet Count 222 X10^3/uL (150-400); Red Blood Cell Count 5.05 X10^6/uL (4.0-5.2); Red Cell Distribution Width 14.7 % (11.6-14.8); White Blood Cell Count 9.6 X10^3/uL (4.5-11.0)
[2020-05-10 15:19] LABS: HEMOLYSIS < 15 (0-50)
[2020-05-10 15:20] LABS: INR 1.1 (0.9-1.3); Prothrombin Time 12.5 SECONDS (10.1-12.7)
[2020-05-10 15:23] LABS: PTT Partial Thromboplastin Tim 29 SECONDS (26.4-36.2)
[2020-05-10 15:24] LABS: Alanine Aminotransferase 23 IU/L (<35); Albumin 4.1 g/dL (3.5-5.0); Albumin Globulin Ratio 1.3 (1.0-2.8); Alkaline Phosphatase 84 U/L (38-126); Aspartate Aminotransferase 28 IU/L (14-36); BUN Creatinine Ratio 12.7 (6-22); Bilirubin Total 0.3 mg/dL (0.2-1.3); Blood Urea Nitrogen 7 mg/dL (7-17); Calcium 9.2 mg/dL (8.4-10.2); Carbon Dioxide 27 mmol/L (22-32); Chloride 97 mmol/L (98-107); Creatine Kinase 20 U/L (30-135); Estimated Glomerular Filt Rate > 60.0 mL/min (>60); Globulin 3.2 g/dL (1.7-4.1); Glucose 344 mg/dL (70-100); Lipase 155 U/L (23-300); Potassium 4.2 mmol/L (3.4-5.1); Sodium 132 mmol/L (137-145); Total Protein 7.3 g/dL (6.3-8.2)
[2020-05-10] MEDS: SODIUM CHLORIDE 0.9% 1,000 ML 1000 ML IV ×2 (15:34→16:15)
[2020-05-10] MEDS: ONDANSETRON 4 MG/2 ML INJ IV (15:34)
[2020-05-10 15:36] LABS: Troponin I < 0.012 ng/mL (0.01-0.034)
[2020-05-10 15:42] LABS: HCO3 VBG 26 mmol/L (23-28); Oxygen Saturation VBG 82 % (70-75); PCO2 VBG 43.5 mmHg (45-50); PO2 VBG 47 mmHg (35-45); Total CO2 VBG 27 mmol/L (24-29); pH VBG 7.38 (7.33-7.43)
[2020-05-10 15:43] VITALS: PULSE 89; RESP 22; O2SAT 95
[2020-05-10 15:44] LABS: Ketones (Beta-Hydroxybutyrate) 0.12 mmol/L (<0.27)
[2020-05-10 16:00] VITALS: BP 121/58; PULSE 89; RESP 23; O2SAT 95
--- NOTE | 2020-05-10 16:35 | ED_ITS ---
HPI - Arrhythmia/Palpitations General Chief Complaint: Arrhythmia/Palpitations Stated Complaint: states blood sugar is out of control Time Seen by Provider: 05/10/20 16:34 Source: patient Mode of arrival: Ambulatory History of Present Illness HPI narrative: 49-year-old woman with history of type 2 diabetes, asthma, hypertension, hyperlipidemia, peripheral neuropathy who presents feeling generally unwell complains of ?brain fog? increased urination and thirst and high blood sugars. At 1 point she had been up to, max doses of glyburide, metformin and 100 mg of Lantus daily to control her diabetes and then lost a significant amount of weight (I believe it was over 100 lb) and was able to completely discontinue all insulin and get down to 500 mg of metformin in the morning and a 1000 in the afternoon. Over the last 2 weeks she has noticed her blood sugars have been consistently elevated and she has generally been feeling unwell. She does not note significant weight increase, a significant change to diet, she had had a steroid injection approximately 2 or 3 weeks ago and the initial increase in blood sugars was attributed to that however that does not explain the continued elevation. She does have a follow-up appointment with her marketing/sales person scheduled in 3 days Related Data Home Medications Medication Instructions Recorded Confirmed prazosin [Minipress] 1 mg PO BID #0 03/10/16 02/14/20 propranolol 80 mg PO QDAY #0 03/10/16 02/14/20 albuterol sulfate [Ventolin HFA] 2 puff INH BIDP PRN #0 09/03/16 02/14/20 bupropion HCl 75 mg PO BID #0 09/03/16 02/14/20 clonazepam 1 mg PO TID #0 09/03/16 02/14/20 fluticasone propionate [Flonase 1 spray INTRANASAL BID #0 09/03/16 02/14/20 Allergy Relief] [id number]-wzzrttegjxfr-eyuzfoq 1 tab PO QDAY #0 11/24/16 02/14/20 [Triumeq] amitriptyline 50 mg PO HS #0 11/24/16 02/14/20 cetirizine 10 mg PO QDAY #0 11/24/16 02/14/20 dexlansoprazole [Dexilant] 60 mg PO QDAY #0 11/24/16 02/14/20 glimepiride [Amaryl] 4 mg PO BID #0 11/24/16 02/14/20 losartan 25 mg PO QDAY #0 11/24/16 02/14/20 metformin [Fortamet] 1,000 mg PO BEDTIME #0 11/24/16 05/01/20 tiotropium bromide [Spiriva with 1 puff INH QDAY #0 11/24/16 02/14/20 HandiHaler] atorvastatin [Lipitor] 80 mg PO QDAY #0 12/16/16 02/14/20 metformin 500 mg PO DAILY 05/01/20 05/01/20 Previous Rx's Medication Instructions Recorded gabapentin 800 mg PO TID #90 12/27/16 meperidine [Demerol] 100 mg PO Q4P #60 tab 12/27/16 progesterone micronized 100 mg 100 mg PO QDAY #60 cap 08/16/19 capsule estradiol 1 mg tablet 1 mg PO DAILY #30 tab 11/14/19 estradiol 1 vaginalrin VAG [id number] #1 each 02/15/20 insulin glargine [Lantus Solostar 25 unit SUBCUT QPM #15 ml 05/10/20 U-100 Insulin] Allergies Allergy/AdvReac Type Severity Reaction Status Date / Time levofloxacin [LEVOFLOXACIN] Allergy Severe hives Verified 05/10/20 15:31 Sulfa (Sulfonamide Allergy Severe rash Verified 05/10/20 15:31 Antibiotics) [SULFA (SULFONAMIDE ANTIBIOTICS)] amoxicillin [From AUGMENTIN] Allergy Mild rash Verified 05/10/20 15:31 ciprofloxacin [From CIPRO] Allergy Mild rash Verified 05/10/20 15:31 clarithromycin [From BIAXIN] Allergy Mild rash Verified 05/10/20 15:31 clavulanic acid Allergy Mild rash Verified 05/10/20 15:31 [From AUGMENTIN] morphine [MORPHINE] AdvReac Mild n/v Verified 05/10/20 15:31 pregabalin [PREGABALIN] AdvReac Mild lost voice Verified 05/10/20 15:31 Review of Systems Review of Systems Narrative: She does note frequent urination, increased vaginal discharge and itching as her blood sugars have been elevated recently Pertinent positive and negative findings as per HPI Remainder of review of systems is otherwise unremarkable for Constitutional: Fevers, chills, weakness ENT: No sore throat, neck pain, ear pain CV: Chest pain, palpitations, dyspnea on exertion Respiratory: Cough, wheeze, dyspnea GI: Nausea, vomiting, diarrhea, : Dysuria, hematuria, flank pain MS: Muscle weakness, numbness, joint swelling or warmth Skin: Rashes, nonhealing lesions Neuro: Syncope, dizziness, Patient History Medical History Anxiety Arthritis Bipolar disorder Depression Diabetes mellitus Fibroids GERD (gastroesophageal reflux disease) History of gastrointestinal symptoms HIV (human immunodeficiency virus infection) Hypertension PTSD (post-traumatic stress disorder) Surgical History History of cystoscopy (2013) History of stress incontinence procedure using tension free vaginal tape (2013) S/P functional endoscopic sinus surgery (2002) Status post arthroscopy (2003) Status post cholecystectomy (2011) Status post laparoscopic supracervical hysterectomy (2011) Family History Father Congestive heart failure Social History Smoking Status: Current every day smoker Smoking Status: Current every day smoker alcohol intake frequency: holidays/special occasions only Substance Use Type: marijuana Exam Narrative Exam Narrative: General: Healthy appearing, in no acute distress. Able to give a complete and coherent history. Well-nourished well-developed HEENT: Moist mucous membranes, normal sclera with reactive pupils, Respiratory: Lungs are clear to auscultation, no wheezing no rales no rhonchi. Full and symmetrical air movement Cardiac: Regular rate and rhythm no murmurs no bruits Abdomen: Soft nontender good bowel tones, no flank pain Skin: Warm and dry, no rashes Neurologic: Grossly neurologically intact with no obvious asymmetries or abnormalities Extremities: No trauma, well perfused Psych: Cooperative, appropriate insight and affect Initial Vital Signs Initial Vital Signs: Vital Signs Temperature 99.0 F 05/10/20 14:47 Pulse Rate 107 H 05/10/20 14:47 Respiratory Rate 22 05/10/20 14:47 Pulse Oximetry 97 05/10/20 14:47 Course Orders Ordered: Discontinued Medications Fluconazole (Fluconazole 150 Mg Tablet) 150 mg PO NOW ONE Stop: 05/10/20 17:53 Last Admin: 05/10/20 18:34 Dose: 150 mg Documented by: QIAN Sodium Chloride (Normal Saline 0.9%) 1,000 mls @ 1,000 mls/hr IV BOLUS ONE Stop: 05/10/20 16:29 Last Infusion: 05/10/20 16:31 Dose: 0 mls/hr Documented by: Admin: 05/10/20 15:34 Dose: 1,000 mls/hr Documented by: QIAN Sodium Chloride (Normal Saline 0.9%) 1,000 mls @ 1,000 mls/hr IV BOLUS ONE Stop: 05/10/20 17:10 Last Infusion: 05/10/20 17:39 Dose: 1,000 mls/hr Documented by: Admin: 05/10/20 16:15 Dose: 1,000 mls/hr Documented by: MATTHEW Insulin Glargine (Insulin Glargine 100 Unit/Ml 3ml Pen) 25 unit SUBCUT NOW ONE Stop: 05/10/20 17:53 Last Admin: 05/10/20 18:49 Dose: 25 unit Documented by: MATTHEW Cosigned by: QIAN Ondansetron HCl (Ondansetron 4 Mg/2 Ml Inj) 4 mg IV NOW ONE Stop: 05/10/20 15:31 Last Admin: 05/10/20 15:34 Dose: 4 mg Documented by: QIAN Vital Signs Vital signs: Vital Signs - 8 hr 05/10/20 14:47 05/10/20 15:43 05/10/20 16:00 Temperature 99.0 F Pulse Rate 107 H 89 89 Respiratory Rate 22 22 23 Blood Pressure 121/58 L Pulse Oximetry 97 95 95 MDM - Arrhythmia/Palpitations Medical Records Attestation: I reviewed the patient's medical records. Lab Data Attestation: I reviewed the patient's lab results. Result diagrams: 05/10/20 15:07 05/10/20 15:07 Labs: Lab Results 05/10/20 05/10/20 05/10/20 Range/Units 15:07 15:07 15:07 WBC 9.6 (4.5-11.0) X10^3/uL RBC 5.05 (4.0-5.2) X10^6/uL Hgb 14.5 (12.0-16.0) g/dL Hct 43.9 (36-46) % MCV 86.9 D (80-100) fL MCH 28.8 (26-34) PG MCHC 33.1 (30-36) % RDW 14.7 (11.6-14.8) % Plt Count 222 (150-400) X10^3/uL Neut % (Auto) 55.5 (50-75) % Lymph % (Auto) 34.1 (25-40) % [place] % (Auto) 4.3 (3-14) % Eos % (Auto) 4.7 H (2-4) % Baso % (Auto) 1.4 (0-2) % Neut # (Auto) 5300 (8922-3828) /uL Lymph # (Auto) 3300 (4951-2257) /uL [place] # (Auto) 400 (0-900) /uL Eos # (Auto) 400 (0-450) /uL Baso # (Auto) 100 (0-100) /uL PT 12.5 (10.1-12.7) SECONDS INR 1.1 (0.9-1.3) APTT 29 (26.4-36.2) SECONDS VBG pH (7.33-7.43) VBG pCO2 (45-50) mmHg VBG pO2 (35-45) mmHg VBG HCO3 (23-28) mmol/L VBG Total CO2 (24-29) mmol/L VBG O2 Saturation (70-75) % VBG Base Excess (0-4) mmol/L Sodium 132 L (137-145) mmol/L Potassium 4.2 (3.4-5.1) mmol/L Chloride 97 L (98-107) mmol/L Carbon Dioxide 27 (22-32) mmol/L BUN 7 (7-17) mg/dL Creatinine 0.55 (0.52-1.04) mg/dL Estimated GFR > 60.0 (>60) mL/min BUN/Creatinine Ratio 12.7 (6-22) Glucose 344 H D (70-100) mg/dL Calcium 9.2 (8.4-10.2) mg/dL Total Bilirubin 0.3 (0.2-1.3) mg/dL AST 28 (14-36) IU/L ALT 23 (<35) IU/L Alkaline Phosphatase 84 (38-126) U/L Total Creatine Kinase 20 L (30-135) U/L CK-MB (CK-2) TNP CK-MB (CK-2) Rel Index TNP Troponin I < 0.012 (0.01-0.034) ng/mL Total Protein 7.3 (6.3-8.2) g/dL Albumin 4.1 (3.5-5.0) g/dL Globulin 3.2 (1.7-4.1) g/dL Albumin/Globulin Ratio 1.3 (1.0-2.8) Lipase 155 (23-300) U/L Ketones 0.12 (<0.27) mmol/L 05/10/20 Range/Units 15:10 WBC (4.5-11.0) X10^3/uL RBC (4.0-5.2) X10^6/uL Hgb (12.0-16.0) g/dL Hct (36-46) % MCV (80-100) fL MCH (26-34) PG MCHC (30-36) % RDW (11.6-14.8) % Plt Count (150-400) X10^3/uL Neut % (Auto) (50-75) % Lymph % (Auto) (25-40) % [place] % (Auto) (3-14) % Eos % (Auto) (2-4) % Baso % (Auto) (0-2) % Neut # (Auto) (0442-5259) /uL Lymph # (Auto) (1958-6078) /uL [place] # (Auto) (0-900) /uL Eos # (Auto) (0-450) /uL Baso # (Auto) (0-100) /uL PT (10.1-12.7) SECONDS INR (0.9-1.3) APTT (26.4-36.2) SECONDS VBG pH 7.38 (7.33-7.43) VBG pCO2 43.5 L (45-50) mmHg VBG pO2 47 H (35-45) mmHg VBG HCO3 26 (23-28) mmol/L VBG Total CO2 27 (24-29) mmol/L VBG O2 Saturation 82 H (70-75) % VBG Base Excess 1.0 (0-4) mmol/L Sodium (137-145) mmol/L Potassium (3.4-5.1) mmol/L Chloride (98-107) mmol/L Carbon Dioxide (22-32) mmol/L BUN (7-17) mg/dL Creatinine (0.52-1.04) mg/dL Estimated GFR (>60) mL/min BUN/Creatinine Ratio (6-22) Glucose (70-100) mg/dL Calcium (8.4-10.2) mg/dL Total Bilirubin (0.2-1.3) mg/dL AST (14-36) IU/L ALT (<35) IU/L Alkaline Phosphatase (38-126) U/L Total Creatine Kinase (30-135) U/L CK-MB (CK-2) CK-MB (CK-2) Rel Index Troponin I (0.01-0.034) ng/mL Total Protein (6.3-8.2) g/dL Albumin (3.5-5.0) g/dL Globulin (1.7-4.1) g/dL Albumin/Globulin Ratio (1.0-2.8) Lipase (23-300) U/L Ketones (<0.27) mmol/L Point of Care Testing Glucose POC 186 Urine Dip Bedside Urine Glucose 1000 mg/dl Bedside Urine Bilirubin - Negative Bedside Urine Ketone - Negative Urine Specific [place] 1.010 Bedside Urine Occult Blood - Negative Bedside Urine pH 6 Bedside Urine Protein - Negative Bedside Urine Urobilinogen - Negative Bedside Urine Nitrite - Negative Bedside Urine Leukocytes - Negative Esterase MDM Narrative Medical decision making narrative: 49-year-old woman with type 2 diabetes with hyperglycemia over the last 2 weeks without evidence of DKA or hyperosmolar hyperglycemic state. There is no evidence of infectious etiology, significant abdominal abnormality or acute coronary syndrome Her blood sugar came down nicely with the fluid bolus only. We discussed recent findings and in light of the chronically elevated sugars will have her restart 25 mg of Lantus at HS and increase her metformin to a 1000 mg b.i.d.. She does have scheduled endocrine follow-up for the same within 72 hours. She is comfortable with restarting the insulin prescriptions are written encouraged to return if she has problems over the course of the weekend. 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 Your sugar did come down with IV fluids alone. I want you to increase your Glucophage/metformin up to a 1000 mg in the morning and a 1000 mg at dinner I am also going to suggest that you restart the Lantus insulin at night at 25 units. A prescription for this has been electronically transmitted to look on her drug for you. I have given you a dose of Diflucan this evening to help with the vaginal itching that you have noticed as your blood sugars have been higher. Please make sure you keep your appointment with your marketing/sales person on Wednesday If you sugars continue to increase over the weekend, please return to the emergency department I wish you the best Prescriptions: New Lantus Solostar U-100 Insulin 100 unit/mL (3 mL) insulin pen 25 unit SUBCUT QPM Qty: 15 RF: 0 No Action propranolol 80 MG capsule,extended release 24 hr 80 mg PO QDAY Qty: 0 RF: 0 prazosin [Minipress] 1 MG capsule 1 mg PO BID Qty: 0 RF: 0 bupropion HCl 75 MG tablet 75 mg PO BID Qty: 0 RF: 0 albuterol sulfate [Ventolin HFA] 90 MCG/PUFF HFA aerosol inhaler 2 puff INH BIDP PRNQty: 0 RF: 0 clonazepam 1 MG tablet 1 mg PO TID Qty: 0 RF: 0 fluticasone propionate [Flonase Allergy Relief] 9.9 ML spray,suspension 1 spray Intranasal BID Qty: 0 RF: 0 [id number]-[id number] [Triumeq] 1 EACH tablet 1 tab PO QDAY Qty: 0 RF: 0 dexlansoprazole [Dexilant] 60 MG capsule,biphase delayed releas 60 mg PO QDAY Qty: 0 RF: 0 amitriptyline 50 MG tablet 50 mg PO HS Qty: 0 RF: 0 cetirizine 10 MG tablet 10 mg PO QDAY Qty: 0 RF: 0 glimepiride [Amaryl] 4 MG tablet 4 mg PO BID Qty: 0 RF: 0 losartan 25 MG tablet 25 mg PO QDAY Qty: 0 RF: 0 metformin [Fortamet] 1,000 MG tablet extended release 24hr 1,000 mg PO BEDTIME Qty: 0 RF: 0 tiotropium bromide [Spiriva with HandiHaler] 18 MCG capsule, w/inhalation device 1 puff INH QDAY Qty: 0 RF: 0 atorvastatin [Lipitor] 80 MG tablet 80 mg PO QDAY Qty: 0 RF: 0 gabapentin 800 MG tablet 800 mg PO TID Qty: 90 RF: 1 meperidine [Demerol] 100 MG tablet 100 mg PO Q4P Qty: 60 RF: 0 progesterone micronized [Prometrium] 100 mg capsule 100 mg PO QDAY Qty: 60 RF: 0 estradiol 1 mg tablet 1 mg PO DAILY Qty: 30 RF: 6 Estring 2 mg (7.5 mcg /24 hour) ring 1 vaginalrin VAG [id number] Qty: 1 RF: 4 metformin 500 mg Tablet 500 mg PO DAILY RF: 0 Referrals: Lorena Cook DO [Primary Care Provider] -
[2020-05-10] MEDS: FLUCONAZOLE 150 MG TABLET PO (18:34)
[2020-05-10] MEDS: INSULIN GLARGINE 100 UNIT/ML 3ML PEN 25 UNIT SUBCUT (18:49)
[2020-05-10 19:00] VITALS: BP 138/65; PULSE 82; RESP 16
== END 2020-05-10 19:00 | disposition home or self-care (01) ==
PROVIDERS: Emergency Provider Emergency Medicine; PCP Student in an Organized Health Care Education/Training Program
DX: E11.65 Type 2 diabetes mellitus with hyperglycemia (principal); R07.9 Chest pain, unspecified; R00.2 Palpitations; I10 Essential (primary) hypertension; B20 Human immunodeficiency virus [HIV] disease
CPT/HCPCS: 71045; 80053; 81003; 82009; 82550; 82805; 82962; 83690; 84484; 85025; 85610; 85730; 93005; 93010; 96361; 96372; 96374; 99283; 99284; J2405

== ENCOUNTER 2020-06-07 18:57 | Emergency (ER) | payer MEDICARE, OTHER, SELFPAY ==
[2020-06-07 19:04] VITALS: BP 150/73; PULSE 85; RESP 16; TEMP 36.3; O2SAT 99; BMI 28.8
--- NOTE | 2020-06-07 19:11 | ED_ITS ---
HPI - Dental/Oral General Chief complaint: Dental/Oral Stated complaint: MOUTH INFECTION Time Seen by Provider: 06/07/20 19:11 Source: patient Mode of arrival: Ambulatory Limitations: no limitations History of Present Illness HPI Narrative: 49-year-old HIV-positive woman with diabetes, hypertension, anxiety presents with increasing left-sided jaw pain for the last 3 days. She talked to a dentist today who recommended she come to the emergency room for evaluation and concerns of infection with request for antibiotics. He will expect to see her on an emergency basis on Wednesday (as this is a holiday weekend). She is describing no fevers, mild trismus, mild swelling under the angle of her jaw. No chest pain, cough, abdominal pain. Has not noticed that her sugars have dramatically increased. MD Complaint: tooth pain Location: Tooth # (19) Related Data Home Medications Medication Instructions Recorded Confirmed prazosin [Minipress] 1 mg PO BID #0 03/10/16 05/18/20 propranolol 80 mg PO QDAY #0 03/10/16 05/18/20 albuterol sulfate [Ventolin HFA] 2 puff INH BIDP PRN #0 09/03/16 05/18/20 bupropion HCl 75 mg PO BID #0 09/03/16 05/18/20 clonazepam 1 mg PO TID #0 09/03/16 05/18/20 fluticasone propionate [Flonase 1 spray INTRANASAL BID #0 09/03/16 05/18/20 Allergy Relief] [id number]-[id number]-lxlxuok 1 tab PO QDAY #0 11/24/16 05/18/20 [Triumeq] amitriptyline 50 mg PO HS #0 11/24/16 05/18/20 cetirizine 10 mg PO QDAY #0 11/24/16 05/18/20 dexlansoprazole [Dexilant] 60 mg PO QDAY #0 11/24/16 05/18/20 glimepiride [Amaryl] 4 mg PO BID #0 11/24/16 05/18/20 losartan 25 mg PO QDAY #0 11/24/16 05/18/20 metformin [Fortamet] 1,000 mg PO BEDTIME #0 11/24/16 05/18/20 tiotropium bromide [Spiriva with 1 puff INH QDAY #0 11/24/16 05/18/20 HandiHaler] atorvastatin [Lipitor] 80 mg PO QDAY #0 12/16/16 05/18/20 metformin 500 mg PO DAILY 05/01/20 05/18/20 Previous Rx's Medication Instructions Recorded gabapentin 800 mg PO TID #90 12/27/16 meperidine [Demerol] 100 mg PO Q4P #60 tab 12/27/16 progesterone micronized 100 mg 100 mg PO QDAY #60 cap 08/16/19 capsule estradiol 1 mg tablet 1 mg PO DAILY #30 tab 11/14/19 estradiol 1 vaginalrin VAG [id number] #1 each 02/15/20 insulin glargine [Lantus Solostar 25 unit SUBCUT QPM #15 ml 05/10/20 U-100 Insulin] fluconazole 150 mg tablet 150 mg PO ONCE #2 tab 05/18/20 clindamycin HCl 300 mg PO TID #21 cap 06/07/20 oxycodone 5 mg PO Q6H PRN #10 tab 06/07/20 Allergies Allergy/AdvReac Type Severity Reaction Status Date / Time levofloxacin [LEVOFLOXACIN] Allergy Severe hives Verified 06/07/20 19:04 Sulfa (Sulfonamide Allergy Severe rash Verified 06/07/20 19:04 Antibiotics) [SULFA (SULFONAMIDE ANTIBIOTICS)] amoxicillin [From AUGMENTIN] Allergy Mild rash Verified 06/07/20 19:04 ciprofloxacin [From CIPRO] Allergy Mild rash Verified 06/07/20 19:04 clarithromycin [From BIAXIN] Allergy Mild rash Verified 06/07/20 19:04 clavulanic acid Allergy Mild rash Verified 06/07/20 19:04 [From AUGMENTIN] morphine [MORPHINE] AdvReac Mild n/v Verified 06/07/20 19:04 pregabalin [PREGABALIN] AdvReac Mild lost voice Verified 06/07/20 19:04 Review of Systems Review of Systems ROS Unobtainable: All systems reviewed & are unremarkable except as noted in HPI and below Patient History Medical History Anxiety Arthritis Bipolar disorder Depression Diabetes mellitus Fibroids GERD (gastroesophageal reflux disease) History of gastrointestinal symptoms HIV (human immunodeficiency virus infection) Hypertension PTSD (post-traumatic stress disorder) Surgical History History of cystoscopy (2013) History of stress incontinence procedure using tension free vaginal tape (2013) S/P functional endoscopic sinus surgery (2002) Status post arthroscopy (2003) Status post cholecystectomy (2011) Status post laparoscopic supracervical hysterectomy (2011) Family History Father Congestive heart failure Social History Smoking Status: Current every day smoker Smoking Status: Current every day smoker alcohol intake frequency: holidays/special occasions only Substance Use Type: marijuana Exam Narrative Exam Narrative: General: Healthy appearing, in pain. Able to give a complete and coherent history. Well-nourished well-developed HEENT: Moist mucous membranes, normal sclera with reactive pupils, able to open her jaw approximately 5 cm with tenderness on the left side and mild trismus. Tooth 19. Is loose and appears to be the tooth that is infected. There is no obvious abscess. Left side of the jaw is somewhat swollen. Neck: Left submandibular adenopathy, supple Respiratory: Full and symmetrical air movement Skin: Warm and dry, no rashes Neurologic: Grossly neurologically intact with no obvious asymmetries or abnormalities Extremities: No trauma, well perfused Psych: Cooperative, appropriate insight and affect Initial Vital Signs Initial Vital Signs: Vital Signs Temperature 97.4 F L 06/07/20 19:04 Pulse Rate 85 06/07/20 19:04 Respiratory Rate 16 06/07/20 19:04 Blood Pressure 150/73 H 06/07/20 19:04 Pulse Oximetry 99 06/07/20 19:04 Course Orders Ordered: Discontinued Medications Acetaminophen (Acetaminophen 325 Mg Tablet) 325 mg PO NOW ONE Stop: 06/07/20 19:27 Clindamycin HCl (Clindamycin 150 Mg Capsule) 300 mg PO NOW ONE Stop: 06/07/20 19:28 Ibuprofen (Ibuprofen 400 Mg Tablet) 400 mg PO NOW ONE Stop: 06/07/20 19:27 Oxycodone HCl (Oxycodone Ir 5 Mg Tablet) 5 mg PO NOW ONE Stop: 06/07/20 19:27 Oxycodone/Acetaminophen (Oxycodone/Apap 5/325 Prepack) 1 bottle MISC SEEINSTR ONE Stop: 06/07/20 19:27 Vital Signs Vital signs: Vital Signs - 8 hr 06/07/20 19:04 Temperature 97.4 F L Pulse Rate 85 Respiratory Rate 16 Blood Pressure 150/73 H Pulse Oximetry 99 [facility] - Dental/Oral Medical Records Attestation: I reviewed the patient's medical records. [facility] Narrative Medical decision making narrative: 49-year-old woman with developing tooth 19. Dental abscess. She has multiple allergies including Cipro, sulfa and Augmentin. She does not believe she has been on clindamycin before and is willing to give this a try. She currently is taking ibuprofen Tylenol combination and finding this not completely effective. She does have a history of distant alcohol use but has been sober for an extended period of time. We talked about narcotics for acute pain and in the face of addiction. She has a very supportive partner who will make sure she does not overuse her medications. She notes that she recently had shoulder surgery a month ago and there were no issues with narcotics postoperatively. She will be following up in 72 hours with a dentist. Discharge Plan Departure Patient Disposition: Home Clinical Impression: Abscess, dental Instructions: Tooth Abscess Activity Restrictions/Additional Instructions: From sorry that your dental abscess is turning out to be a problem on Wednesday evening of the long holiday weekend. Please use clindamycin 3 times a day for the next 7 days. To the combination ibuprofen Tylenol that you are currently taking you can add 1 immediate release oxycodone if needed. Please make sure you keep your appointment with your dentist on Wednesday. If you develop increasing fevers, feel that your blood sugars are getting out of control or have more swelling or pain, please return to the emergency department Prescriptions: New oxycodone 5 mg tablet 5 mg PO Q6H PRN (Reason: pain) Qty: 10 RF: 0 clindamycin HCl 300 mg capsule 300 mg PO TID Qty: 21 RF: 0 No Action fluconazole 150 mg tablet 150 mg PO ONCE Qty: 2 RF: 0 propranolol 80 MG capsule,extended release 24 hr 80 mg PO QDAY Qty: 0 RF: 0 prazosin [Minipress] 1 MG capsule 1 mg PO BID Qty: 0 RF: 0 bupropion HCl 75 MG tablet 75 mg PO BID Qty: 0 RF: 0 albuterol sulfate [Ventolin HFA] 90 MCG/PUFF HFA aerosol inhaler 2 puff INH BIDP PRNQty: 0 RF: 0 clonazepam 1 MG tablet 1 mg PO TID Qty: 0 RF: 0 fluticasone propionate [Flonase Allergy Relief] 9.9 ML spray,suspension 1 spray Intranasal BID Qty: 0 RF: 0 [id number]-matsgqkgyylj-yzawwwb [Triumeq] 1 EACH tablet 1 tab PO QDAY Qty: 0 RF: 0 dexlansoprazole [Dexilant] 60 MG capsule,biphase delayed releas 60 mg PO QDAY Qty: 0 RF: 0 amitriptyline 50 MG tablet 50 mg PO HS Qty: 0 RF: 0 cetirizine 10 MG tablet 10 mg PO QDAY Qty: 0 RF: 0 glimepiride [Amaryl] 4 MG tablet 4 mg PO BID Qty: 0 RF: 0 losartan 25 MG tablet 25 mg PO QDAY Qty: 0 RF: 0 metformin [Fortamet] 1,000 MG tablet extended release 24hr 1,000 mg PO BEDTIME Qty: 0 RF: 0 tiotropium bromide [Spiriva with HandiHaler] 18 MCG capsule, w/inhalation device 1 puff INH QDAY Qty: 0 RF: 0 atorvastatin [Lipitor] 80 MG tablet 80 mg PO QDAY Qty: 0 RF: 0 gabapentin 800 MG tablet 800 mg PO TID Qty: 90 RF: 1 meperidine [Demerol] 100 MG tablet 100 mg PO Q4P Qty: 60 RF: 0 progesterone micronized [Prometrium] 100 mg capsule 100 mg PO QDAY Qty: 60 RF: 0 estradiol 1 mg tablet 1 mg PO DAILY Qty: 30 RF: 6 Estring 2 mg (7.5 mcg /24 hour) ring 1 vaginalrin VAG [id number] Qty: 1 RF: 4 metformin 500 mg Tablet 500 mg PO DAILY RF: 0 Lantus Solostar U-100 Insulin 100 unit/mL (3 mL) insulin pen 25 unit SUBCUT QPM Qty: 15 RF: 0 Referrals: Lorena Cook DO [Primary Care Provider] -
[2020-06-07] MEDS: ACETAMINOPHEN 325 MG TABLET PO (19:46)
[2020-06-07] MEDS: IBUPROFEN 400 MG TABLET PO (19:47)
[2020-06-07] MEDS: OXYCODONE IR 5 MG TABLET PO (19:47)
[2020-06-07] MEDS: OXYCODONE/APAP 5/325 PREPACK 1 BOTTLE MISC (19:48)
[2020-06-07] MEDS: CLINDAMYCIN 150 MG CAPSULE 300 MG PO (19:48)
== END 2020-06-07 20:01 | disposition home or self-care (01) ==
PROVIDERS: Emergency Provider Emergency Medicine; PCP Student in an Organized Health Care Education/Training Program
DX: K04.7 Periapical abscess without sinus (principal); E11.9 Type 2 diabetes mellitus without complications; I10 Essential (primary) hypertension; F41.9 Anxiety disorder, unspecified; F31.9 Bipolar disorder, unspecified; B20 Human immunodeficiency virus [HIV] disease
CPT/HCPCS: 99281; 99283

== ENCOUNTER → 2020-06-21 09:02 | Outpatient (CLI) | payer MEDICARE, OTHER, SELFPAY ==
--- NOTE | 2020-06-21 | DI.RAD.S_ITS ---
PROCEDURE: FL KNEE INJECTION MR/CT RT INDICATIONS: Unilateral primary osteoarthritis, right knee COMPARISON: None. TECHNIQUE: The indications, alternatives, benefits, risks, and complications of the procedure were explained to the patient. Written informed consent was obtained and placed in the chart. The knee was examined fluoroscopically, and a site chosen for knee joint injection. The skin was prepped and draped in a sterile fashion, and 1% Lidocaine infiltrated from the skin down to the articular surface. A hypodermic needle was then introduced into the joint and iodinated contrast media was instilled to confirm the intra-articular needle tip placement. This was followed by approximately 50 mL dilute solution of a gadolinium containing MR contrast agent. The needle was removed and a bandage was applied. An Mario wrap was then applied around the knee joint to keep the contrast from collecting in the suprapatellar recess. The patient experienced no complications throughout the procedure and left the fluoroscopic suite in no apparent distress. FINDINGS: Single fluoroscopic spot image demonstrates intra-articular location to injected iodinated contrast. IMPRESSION: Successful fluoroscopically guided administration of dilute Gadolinium solution into the knee joint for MR arthrogram. Dictated by: Fe Light MD, PhD on 06/21/2020 at 9:59 Approved by: Fe Light MD, PhD on 06/21/2020 at 9:59
--- NOTE | 2020-06-21 | DI.MRI.S_ITS ---
PROCEDURE: MR KNEE RT W CON INDICATIONS: Unilateral primary osteoarthritis, right knee TECHNIQUE: After the administration of 50 mL of dilute intra-articular Gadolinium contrast, sagittal T1 spin echo with fat saturation and PD fast spin echo with fat saturation, coronal T1 spin echo with and without fat saturation, coronal T2 fast spin echo with fat saturation, axial PD fast spin echo with fat saturation through the knee. COMPARISON: [facility], MR, MR KNEE RIGHT WITHOUT CONTRAST, 05/02/2018, 7:17. [facility], CR, XR KNEE 4+ VIEWS RIGHT, 06/11/2020, 14:56. FINDINGS: Image quality: Excellent. Menisci: Medial meniscus intact. Vertically oriented tear involving the free margin of the anterior horn of the lateral meniscus image 9/7. There is also truncated appearance and fraying of the body of the lateral meniscus image 18/9. Cruciate ligaments: Anterior cruciate ligament appears intact. Posterior cruciate ligament appears intact. Medial structures: The medial collateral ligament appears intact. Semimembranosus tendon appears intact. Visualized portions of the pes anserinus tendons appear normal. No abnormal bursal fluid. Lateral structures: The lateral collateral ligament intact. Biceps femoris tendon appears intact. Popliteus tendon grossly unremarkable. Iliotibial band appears intact. Anterior structures: Quadriceps tendon intact. Medial and lateral patellofemoral ligaments intact. There is mild patellar tendinopathy. Prepatellar and superficial infrapatellar subcutaneous edema/fluid. Bones and cartilage: No focal marrow contusion or discrete low signal fracture line. Within the medial compartment, no focal cartilage defect. Within the lateral compartment, 2 mm focus of near full-thickness central cartilage loss, possibly chondral flap tear, involving the lateral femoral condyle. There is diffuse mild partial thickness loss of the tibial cartilage Within the patellofemoral compartment, no focal cartilage defect. Joint space: No Chu's cyst. No specific evidence of intra-articular loose body. IMPRESSION: Ill-defined tear of the lateral meniscus involving the anterior horn and body. Mild patellar tendinopathy with adjacent fluid/edema 2 mm focus of near full-thickness central weight-bearing cartilage defect overlying the central lateral femoral condyle, with an appearance that raises the possibility of chondral flap tear. Mild diffuse partial-thickness loss of the tibial cartilage. Dictated by: Luc Hernandez M.D. on 06/21/2020 at 12:09 Approved by: Luc Hernandez M.D. on 06/21/2020 at 12:18
== END ==
PROVIDERS: PCP Student in an Organized Health Care Education/Training Program; Referring Provider Orthopaedic Surgery; Visit Provider Orthopaedic Surgery
DX: M17.11 Unilateral primary osteoarthritis, right knee (principal); S83.281A Other tear of lateral meniscus, current injury, right knee, initial encounter
CPT/HCPCS: 27369; 73722; 77002

== ENCOUNTER → 2020-07-03 09:31 | Outpatient (CLI) | payer MEDICARE, OTHER, SELFPAY ==
[2020-07-03 11:36] LABS: Hepatitis B Surface Antigen NEGATIVE s/c (NEGATIVE)
[2020-07-03 11:38] LABS: Estradiol, Total 88.9 pg/mL
[2020-07-04 06:44] LABS: Hepatitis B Core Antibody Negative (Negative)
[2020-07-04 07:09] LABS: RPR Screen Non Reactive (Non Reactive)
[2020-07-08 13:36] LABS: Chlamydia trachomatis Negative (Negative); Mycoplasma genitalium Negative (Negative); Neisseria gonorrhoeae Negative (Negative)
[2020-07-12 09:48] LABS: Percent Free Testosterone 2.36 % (0.50-2.80); Testosterone Free 0.14 ng/dL (0.10-0.85)
== END ==
PROVIDERS: PCP Student in an Organized Health Care Education/Training Program; Referring Provider Obstetrics & Gynecology; Visit Provider Obstetrics & Gynecology
DX: Z20.2 Contact with and (suspected) exposure to infections with a predominantly sexual mode of transmission (principal); Z11.3 Encounter for screening for infections with a predominantly sexual mode of transmission
CPT/HCPCS: 36415; 82670; 84402; 84403; 86592; 86704; 87340; 87491; 87563; 87591

== ENCOUNTER 2020-07-08 20:37 | Emergency (ER) | payer MEDICARE, OTHER, SELFPAY ==
[2020-07-08] VITALS (7 sets, daily range): BP systolic 148–166; BP diastolic 70–91; PULSE 80–91; RESP 18–22; TEMP 37.1; O2SAT 95–99; BMI 29.5
--- NOTE | 2020-07-08 20:47 | ED.CHESTPAIN ---
HPI - Chest Pain General Chief Complaint: Chest Pain Stated Complaint: HEADACHE BODY ACHES RIGHT ARM SOB COUGH Time Seen by Provider: 07/08/20 20:40 Source: patient and family Mode of arrival: Ambulatory Limitations: no limitations History of Present Illness HPI narrative: 49F smoker with history of DM, COPD, and tachycardia presents with significant other and multiple complaints. She's had a vague, generalized headache for the past 4-5 days. She states it is worse with bright lights and loud noises. She denies fever or chills. She admits to gradual onset and denies any sudden changes. She denies blurred vision, trouble with speech, or extremity numbness, tingling, or weakness. She does however have RUE heaviness which has also been present since wednesday or so. She has chronic neck pain, nothing new. She's had runny nose and sneezing along with dry non productive cough. This cough causes R sided chest pain to worsen. She denies any radiation of this pain. She states it is heavy, constant, sharp and also that it comes and goes. She admits that it is difficult for her to describe. She states her only obvious provocation is palpation, deep breath and motion. She denies any exertional symptoms. She denies nausea, vomiting or diarrhea. She denies dysuria, frequency or urgency. She denies any numbness, weakness or tingling of her lower extremities. She denies any exposure to persons with suspected or known COVID. She denies recent travel, history of clot or known cancer MD complaint: chest pain Onset (ago): day(s) Duration: constant, intermittent and improved Pain location: right chest Severity: moderate Severity scale (1-10): 5 Quality: tightness, heaviness and sharp Pain radiation: none Exacerbating factors: inspiration and palpation Associated symptoms: cough Treatments prior to arrival chest pain: none Related Data On Oral Contraceptives: No Home Medications Medication Instructions Recorded Confirmed prazosin [Minipress] 1 mg PO BID #0 03/10/16 07/03/20 propranolol 80 mg PO QDAY #0 03/10/16 07/03/20 albuterol sulfate [Ventolin HFA] 2 puff INH BIDP PRN #0 09/03/16 07/03/20 bupropion HCl 75 mg PO BID #0 09/03/16 07/03/20 clonazepam 1 mg PO TID #0 09/03/16 07/03/20 fluticasone propionate [Flonase 1 spray INTRANASAL BID #0 09/03/16 07/03/20 Allergy Relief] avetpkbi-tibucvildmrp-rcpselw 1 tab PO QDAY #0 11/24/16 07/03/20 [Triumeq] amitriptyline 50 mg PO HS #0 11/24/16 07/03/20 cetirizine 10 mg PO QDAY #0 11/24/16 07/03/20 dexlansoprazole [Dexilant] 60 mg PO QDAY #0 11/24/16 07/03/20 glimepiride [Amaryl] 4 mg PO BID #0 11/24/16 07/03/20 losartan 25 mg PO QDAY #0 11/24/16 07/03/20 metformin [Fortamet] 1,000 mg PO BEDTIME #0 11/24/16 07/03/20 tiotropium bromide [Spiriva with 1 puff INH QDAY #0 11/24/16 07/03/20 HandiHaler] atorvastatin [Lipitor] 80 mg PO QDAY #0 12/16/16 07/03/20 metformin 500 mg PO DAILY 05/01/20 07/03/20 Previous Rx's Medication Instructions Recorded gabapentin 800 mg PO TID #90 12/27/16 meperidine [Demerol] 100 mg PO Q4P #60 tab 12/27/16 progesterone micronized 100 mg 100 mg PO QDAY #60 cap 08/16/19 capsule estradiol 1 vaginalrin VAG [id number] #1 each 02/15/20 insulin glargine [Lantus Solostar 25 unit SUBCUT QPM #15 ml 05/10/20 U-100 Insulin] fluconazole 150 mg tablet 150 mg PO ONCE #2 tab 05/18/20 clindamycin HCl 300 mg PO TID #21 cap 06/07/20 oxycodone 5 mg PO Q6H PRN #10 tab 06/07/20 estradiol 1 mg tablet See Rx Instructions .ROUTE 06/24/20 .COMPLEX #30 tab doxycycline hyclate 100 mg PO BID #20 tab 07/08/20 Allergies Allergy/AdvReac Type Severity Reaction Status Date / Time levofloxacin [LEVOFLOXACIN] Allergy Severe hives Verified 07/03/20 09:17 Sulfa (Sulfonamide Allergy Severe rash Verified 07/03/20 09:17 Antibiotics) [SULFA (SULFONAMIDE ANTIBIOTICS)] amoxicillin [From AUGMENTIN] Allergy Mild rash Verified 07/03/20 09:17 ciprofloxacin [From CIPRO] Allergy Mild rash Verified 07/03/20 09:17 clarithromycin [From BIAXIN] Allergy Mild rash Verified 07/03/20 09:17 clavulanic acid Allergy Mild rash Verified 07/03/20 09:17 [From AUGMENTIN] morphine [MORPHINE] AdvReac Mild n/v Verified 07/03/20 09:17 pregabalin [PREGABALIN] AdvReac Mild lost voice Verified 07/03/20 09:17 Review of Systems Constitutional Constitutional: Reports body ache(s), Denies chills, Denies fatigue, Denies fever(s), Denies frequent falls, Reports headache(s), Denies lethargy and Reports weakness Eyes Eyes: Denies change in vision, Denies eye discharge, Denies irritation and Denies loss of vision ENT Ears, Nose, Mouth, and Throat: Denies change in voice, Denies dizziness, Reports headache(s), Denies neck pain, Denies sore throat and Denies throat swelling Cardiovascular Cardiovascular: Reports chest pain, Denies irregular heart rhythm, Denies lightheadedness, Denies palpitations, Denies dyspnea, Denies dyspnea on exertion and Denies orthopnea Respiratory Respiratory: Reports cough, Reports pain on inspiration, Reports pain with cough, Denies dyspnea, Denies dyspnea on exertion and Denies wheezing Gastrointestinal Gastrointestinal: Denies abdominal pain, Denies change in bowel habits, Denies diarrhea, Denies nausea and Denies vomiting Musculoskeletal Musculoskeletal: Denies neck pain and Denies numbness Comments: Right arm heaviness Integumentary/Breasts Skin/Breast: Denies pruritus, Denies erythema, Denies rash and Denies wounds Neurologic Neurologic: Denies behavioral changes, Denies confusion, Denies dizziness, Denies frequent falls, Reports headache(s), Denies loss of vision, Denies numbness and Reports weakness Psychiatric Psychiatric: Denies anxiety, Denies behavioral changes, Denies confusion, Denies depression, Denies homicidal ideation and Denies suicidal ideation Endocrine Endocrine: Denies fatigue, Denies flushing and Denies palpitations Hematologic/Lymphatic Hematologic/Lymphatic: Denies easy bruising Allergic/Immunologic Allergic/Immunologic: Denies urticaria, Denies throat swelling and Denies wheezing Patient History Medical History Anxiety Arthritis Bipolar disorder Depression Diabetes mellitus Fibroids GERD (gastroesophageal reflux disease) History of gastrointestinal symptoms HIV (human immunodeficiency virus infection) Hypertension PTSD (post-traumatic stress disorder) Surgical History History of cystoscopy (2013) History of stress incontinence procedure using tension free vaginal tape (2013) S/P functional endoscopic sinus surgery (2002) Status post arthroscopy (2003) Status post cholecystectomy (2011) Status post laparoscopic supracervical hysterectomy (2011) Family History Father Congestive heart failure Social History Smoking Status: Current every day smoker Smoking Status: Current every day smoker alcohol intake frequency: holidays/special occasions only Substance Use Type: marijuana Exam Narrative Exam Narrative: GENERAL: [49] year old patient appears stated age. Well-nourished, well-developed patient, in mild distress. Flat affect HEAD: Atraumatic. Normocephalic. EYES: Pupils equal round and reactive. Extraocular motions intact. No scleral icterus. No injection or drainage. ENT: Nose without bleeding, purulent drainage. Throat without erythema, tonsillar hypertrophy or exudate. Airway patent. NECK: Trachea midline. Non tender. No meningeal signs. Negative Brudzinski's and Kernig's. No provocation with axial loading CARDIOVASCULAR: Regular rate and rhythm without murmurs, gallops, or rubs. Reproducible right anterior chest pain to palpation RESPIRATORY: Clear to auscultation. Breath sounds equal bilaterally. No wheezes, rales, or rhonchi. GASTROINTESTINAL: Abdomen soft, non-tender, nondistended. EXTREMITIES: No edema or joint tenderness. BACK: Nontender without deformity or crepitance. No flank tenderness. NEURO: AOx3. SKIN: No rash or erythema of visible areas Initial Vital Signs Initial Vital Signs: Vital Signs Temperature 98.8 F 07/08/20 20:48 Pulse Rate 88 07/08/20 20:48 Respiratory Rate 22 07/08/20 20:48 Blood Pressure 166/91 H 07/08/20 20:48 Pulse Oximetry 99 07/08/20 20:48 Scores NIH Stroke Scale Level of Conciousness: Alert, keenly responsive Ask month/age: Answers both questions correctly. Open/close eyes, close hand: Performs both tasks correctly Best gaze horizontal: Normal Visual kothari: No visual loss Facial palsy: Normal symetrical movement Left arm drift: No drift for full 10 sec Right arm drift: No drift for full 10 sec Left leg drift: No drift for full 5 sec Right leg drift: No drift for full 5 sec Limb ataxia: Absent Sensory on face/arms/legs: Normal, no sensory loss Best language: No aphasia, normal Dysarthria: Normal Extinction or inattention: No abnormality Total NIH Stroke scale score: 0 Course Orders Ordered: ED Orders 07/08/20 20:47 CT head/brain wo con Stat 07/08/20 20:48 XR chest 1V Stat 07/08/20 20:50 COVID19 Stat EKG-12 Lead Stat 07/08/20 21:17 D Dimer Stat 07/08/20 21:20 C-Reactive Protein Quant Stat Complete Blood Count AUTO DIFF Stat Comprehensive Metabolic Panel Stat Lactate (Lactic Acid) Stat Lipase Stat Magnesium Stat NT-proBNP (BNP-Adult 18+) Stat Partial Thromboplastin Time Stat Prothrombin Time INR Stat Troponin & CK Cardiac Panel Stat 07/08/20 21:50 Influenza A & B (PCR) Stat 07/08/20 21:55 Blood Culture Stat 07/08/20 22:06 CT angio chest abdomen pelvis Stat 07/08/20 22:45 EKG-12 Lead Stat Discontinued Medications Hydromorphone HCl (Hydromorphone 1 Mg Inj) 1 mg IV NOW ONE Stop: 07/08/20 23:13 Last Admin: 07/08/20 23:16 Dose: 1 mg Documented by: REHAN Sodium Chloride (Normal Saline 0.9%) 1,000 mls @ 1,000 mls/hr IV BOLUS ONE Stop: 07/08/20 21:46 Last Infusion: 07/08/20 23:02 Dose: 0 mls/hr Documented by: Admin: 07/08/20 21:31 Dose: 1,000 mls/hr Documented by: ESNODGRASS Ketorolac Tromethamine (Ketorolac 60 Mg/2 Ml Vial) 15 mg IV NOW ONE Stop: 07/08/20 21:50 Last Admin: 07/08/20 22:04 Dose: 15 mg Documented by: REHAN Nitroglycerin (Nitroglycerin 0.4 Mg Sl Tab) 0.4 mg SL [id number] PRN PRN Reason: Chest Pain Last Admin: 07/08/20 22:47 Dose: 0.4 mg Documented by: REHAN Vital Signs Vital signs: Vital Signs - 8 hr 07/08/20 20:48 07/08/20 21:12 07/08/20 21:30 Temperature 98.8 F Pulse Rate 88 87 87 Respiratory Rate 22 Blood Pressure 166/91 H Pulse Oximetry 99 96 95 07/08/20 21:49 07/08/20 22:00 07/08/20 22:34 Temperature Pulse Rate 91 H 83 82 Respiratory Rate 19 20 Blood Pressure 148/70 H Pulse Oximetry 97 96 99 07/08/20 22:47 07/09/20 00:10 Temperature 98.1 F Pulse Rate 80 81 Respiratory Rate 18 18 Blood Pressure 158/85 H 112/56 L Pulse Oximetry 99 98 MDM - Chest Pain Lab Data Result diagrams: 07/08/20 21:20 07/08/20 21:20 Labs: Lab Results 07/08/20 07/08/20 07/08/20 Range/Units 20:50 21:17 21:20 WBC 10.5 (4.5-11.0) X10^3/uL RBC 4.54 (4.0-5.2) X10^6/uL Hgb 13.5 (12.0-16.0) g/dL Hct 40.4 (36-46) % MCV 89.0 (80-100) fL MCH 29.8 (26-34) PG MCHC 33.5 (30-36) % RDW 14.1 (11.6-14.8) % Plt Count 207 (150-400) X10^3/uL Neut % (Auto) 49.1 L (50-75) % Lymph % (Auto) 40.7 H (25-40) % Stokes % (Auto) 4.5 (3-14) % Eos % (Auto) 4.9 H (2-4) % Baso % (Auto) 0.8 (0-2) % Neut # (Auto) 5200 (6877-8320) /uL Lymph # (Auto) 4300 (1459-0760) /uL Stokes # (Auto) 500 (0-900) /uL Eos # (Auto) 500 H (0-450) /uL Baso # (Auto) 100 (0-100) /uL PT (10.1-12.7) SECONDS INR (0.9-1.3) APTT (26.4-36.2) SECONDS D-Dimer 245 H (<230) ng/mL Sodium (137-145) mmol/L Potassium (3.4-5.1) mmol/L Chloride (98-107) mmol/L Carbon Dioxide (22-32) mmol/L BUN (7-17) mg/dL Creatinine (0.52-1.04) mg/dL Estimated GFR (>60) mL/min BUN/Creatinine Ratio (6-22) Glucose (70-100) mg/dL Lactate (0.7-2.1) mmol/L Calcium (8.4-10.2) mg/dL Magnesium (1.6-2.3) mg/dL Total Bilirubin (0.2-1.3) mg/dL AST (14-36) IU/L ALT (<35) IU/L Alkaline Phosphatase (38-126) U/L Total Creatine Kinase (30-135) U/L CK-MB (CK-2) CK-MB (CK-2) Rel Index Troponin I (0.01-0.034) ng/mL C-Reactive Protein (<1.0) mg/dL NT-Pro-B Natriuret Pep (<125) pg/mL Total Protein (6.3-8.2) g/dL Albumin (3.5-5.0) g/dL Globulin (1.7-4.1) g/dL Albumin/Globulin Ratio (1.0-2.8) Lipase (23-300) U/L SARS-CoV-2 (PCR) Negative (Negative) Influenza A (RT-PCR) (NEGATIVE) Influenza B (RT-PCR) (NEGATIVE) 07/08/20 07/08/20 07/08/20 Range/Units 21:20 21:20 21:20 WBC (4.5-11.0) X10^3/uL RBC (4.0-5.2) X10^6/uL Hgb (12.0-16.0) g/dL Hct (36-46) % MCV (80-100) fL MCH (26-34) PG MCHC (30-36) % RDW (11.6-14.8) % Plt Count (150-400) X10^3/uL Neut % (Auto) (50-75) % Lymph % (Auto) (25-40) % Stokes % (Auto) (3-14) % Eos % (Auto) (2-4) % Baso % (Auto) (0-2) % Neut # (Auto) (4056-5361) /uL Lymph # (Auto) (9797-1611) /uL Stokes # (Auto) (0-900) /uL Eos # (Auto) (0-450) /uL Baso # (Auto) (0-100) /uL PT 12.4 (10.1-12.7) SECONDS INR 1.1 (0.9-1.3) APTT 32 (26.4-36.2) SECONDS D-Dimer (<230) ng/mL Sodium 136 L (137-145) mmol/L Potassium 3.9 (3.4-5.1) mmol/L Chloride 100 (98-107) mmol/L Carbon Dioxide 30 (22-32) mmol/L BUN 9 (7-17) mg/dL Creatinine 0.59 (0.52-1.04) mg/dL Estimated GFR > 60.0 (>60) mL/min BUN/Creatinine Ratio 15.3 (6-22) Glucose 129 H (70-100) mg/dL Lactate 1.4 (0.7-2.1) mmol/L Calcium 9.5 (8.4-10.2) mg/dL Magnesium 1.6 (1.6-2.3) mg/dL Total Bilirubin 0.2 (0.2-1.3) mg/dL AST 21 (14-36) IU/L ALT 22 (<35) IU/L Alkaline Phosphatase 72 (38-126) U/L Total Creatine Kinase 34 (30-135) U/L CK-MB (CK-2) TNP CK-MB (CK-2) Rel Index TNP Troponin I < 0.012 (0.01-0.034) ng/mL C-Reactive Protein 0.8 (<1.0) mg/dL NT-Pro-B Natriuret Pep 40 (<125) pg/mL Total Protein 7.2 (6.3-8.2) g/dL Albumin 4.2 (3.5-5.0) g/dL Globulin 3.0 (1.7-4.1) g/dL Albumin/Globulin Ratio 1.4 (1.0-2.8) Lipase 142 (23-300) U/L SARS-CoV-2 (PCR) (Negative) Influenza A (RT-PCR) (NEGATIVE) Influenza B (RT-PCR) (NEGATIVE) 07/08/20 Range/Units 21:50 WBC (4.5-11.0) X10^3/uL RBC (4.0-5.2) X10^6/uL Hgb (12.0-16.0) g/dL Hct (36-46) % MCV (80-100) fL MCH (26-34) PG MCHC (30-36) % RDW (11.6-14.8) % Plt Count (150-400) X10^3/uL Neut % (Auto) (50-75) % Lymph % (Auto) (25-40) % Stokes % (Auto) (3-14) % Eos % (Auto) (2-4) % Baso % (Auto) (0-2) % Neut # (Auto) (9939-8373) /uL Lymph # (Auto) (8618-1839) /uL Stokes # (Auto) (0-900) /uL Eos # (Auto) (0-450) /uL Baso # (Auto) (0-100) /uL PT (10.1-12.7) SECONDS INR (0.9-1.3) APTT (26.4-36.2) SECONDS D-Dimer (<230) ng/mL Sodium (137-145) mmol/L Potassium (3.4-5.1) mmol/L Chloride (98-107) mmol/L Carbon Dioxide (22-32) mmol/L BUN (7-17) mg/dL Creatinine (0.52-1.04) mg/dL Estimated GFR (>60) mL/min BUN/Creatinine Ratio (6-22) Glucose (70-100) mg/dL Lactate (0.7-2.1) mmol/L Calcium (8.4-10.2) mg/dL Magnesium (1.6-2.3) mg/dL Total Bilirubin (0.2-1.3) mg/dL AST (14-36) IU/L ALT (<35) IU/L Alkaline Phosphatase (38-126) U/L Total Creatine Kinase (30-135) U/L CK-MB (CK-2) CK-MB (CK-2) Rel Index Troponin I (0.01-0.034) ng/mL C-Reactive Protein (<1.0) mg/dL NT-Pro-B Natriuret Pep (<125) pg/mL Total Protein (6.3-8.2) g/dL Albumin (3.5-5.0) g/dL Globulin (1.7-4.1) g/dL Albumin/Globulin Ratio (1.0-2.8) Lipase (23-300) U/L SARS-CoV-2 (PCR) (Negative) Influenza A (RT-PCR) Flu a negative (NEGATIVE) Influenza B (RT-PCR) Flu b negative (NEGATIVE) Urine Dip Bedside Urine Glucose Negative Bedside Urine Bilirubin - Negative Bedside Urine Ketone - Negative Urine Specific [place] 1.010 Bedside Urine Occult Blood - Negative Bedside Urine pH 6.5 Bedside Urine Protein - Negative Bedside Urine Urobilinogen - Negative Bedside Urine Nitrite - Negative Bedside Urine Leukocytes - Negative Esterase Imaging Data CT scan - head: Radiologist's Impression: [address] [id number] Scan ReportSigned Patient: Shelbie Purdy [facility]#: [id number]: 1970Acct:[id number]/Sex: 49 / FDate of Service: 07/08/20Loc: EDAccession Number: [id number] Procedure: CT head/brain wo con Ordering Provider: Javon Arroyo D.O. PROCEDURE: CT HEAD/BRAIN WO CON INDICATIONS: head pain, right arm pain, heaviness TECHNIQUE: Noncontrast 4.5 mm thick angled axial sections acquired from the foramen magnum to the vertex, with coronal and sagittal reformats. For radiation dose reduction, the following was used: automated exposure control, adjustment of mA and/or kV according to patient size. COMPARISON: [facility], CT, HEAD WITHOUT CONTRAST, 09/27/2011, 16:03. FINDINGS: Image quality: Excellent. CSF spaces: Basal cisterns are patent. No extra-axial fluid collections. Ventricles are normal in size and shape. Brain: No midline shift. No intracranial masses or hemorrhage. Sunshine-white matter interface is normal. Skull and face: Calvarium and visualized facial bones are intact, without suspicious lesions. Sinuses: Visualized sinuses and mastoids are clear. IMPRESSION: No acute intracranial process. Dictated by: Luc Hernandez M.D. on 07/08/2020 at 21:12 Approved by: Luc Hernandez M.D. on 07/08/2020 at 21:14 Chest x-ray: Radiologist's Impression: [address] [id number] ReportSigned Patient: Shelbie Purdy [facility]#: [id number]: 1970Acct:[id number]/Sex: 49 / FDate of Service: 07/08/20Loc: EDAccession Number: [id number] Procedure: XR chest 1V Ordering Provider: Javon Arroyo D.O. PROCEDURE: XR CHEST 1V INDICATIONS: chest pain, cough TECHNIQUE: One view of the chest was acquired. COMPARISON: [facility], CR, XR CHEST 1V, 05/10/2020, 15:28. FINDINGS: Surgical changes and devices: None. Lungs and pleura: Lungs are clear. No pleural effusions or pneumothorax. Mediastinum: Mediastinal contours appear normal. Heart size is normal. Bones and chest wall: No suspicious bony lesions. Overlying soft tissues appear unremarkable. IMPRESSION: No acute disease. Dictated by: Luc Hernandez M.D. on 07/08/2020 at 21:11 Approved by: Luc Hernandez M.D. on 07/08/2020 at 21:11 MDM Narrative Medical decision making narrative: Multiple etiologies for patient's symptoms considered including: Myocardial infarction thought unlikely given lack of exertional symptoms, radiation of discomfort, pleuritic, reproducible nature and multiple nonischemic EKG as and negative troponin. Vascular abnormality such as pulmonary embolism considered but thought unlikely given lack of findings on imaging and negative dimer. Dissection considered but thought unlikely given lack of findings on imaging. COVID and flu considered but thought unlikely given negative swabs. Other infectious etiologies such as atypical pneumonia considered most likely given cough, pleuritic-type pain, aches, lack of other significant findings. Stroke considered but thought unlikely given lack of neurologic findings, negative head CT after multiple days. Meningitis considered but thought unlikely given lack of meningeal signs, widespread other symptoms. Patient's symptoms improved over duration of stay with above-stated therapies. Findings and discharge diagnosis discussed with patient/family followed by verbalization of understanding Return precautions discussed with patient/family whom verbalize understanding. Discharge Plan Departure Patient Disposition: Home Clinical Impression: Atypical chest pain, Atypical pneumonia Instructions: DI for Atypical Chest Pain, DI for Atypical Pneumonia Activity Restrictions/Additional Instructions: *You have been diagnosed with [ atypical chest pain, atypical pneumonia ] *What to do: *Take medications as directed *Follow up with your primary care provider in 2-3 days, call for an appointment. Let them know you were seen in the Emergency Department and that we ask that you be seen in follow up *Return to ER if you should have any new, worsening or concerning symptoms, such as [ worsening pain, trouble breathing, neurologic symptoms such as numbness, weakness, tingling or other] Prescriptions: New doxycycline hyclate 100 mg tablet 100 mg PO BID Qty: 20 RF: 0 No Action fluconazole 150 mg tablet 150 mg PO ONCE Qty: 2 RF: 0 propranolol 80 MG capsule,extended release 24 hr 80 mg PO QDAY Qty: 0 RF: 0 prazosin [Minipress] 1 MG capsule 1 mg PO BID Qty: 0 RF: 0 bupropion HCl 75 MG tablet 75 mg PO BID Qty: 0 RF: 0 albuterol sulfate [Ventolin HFA] 90 MCG/PUFF HFA aerosol inhaler 2 puff INH BIDP PRNQty: 0 RF: 0 clonazepam 1 MG tablet 1 mg PO TID Qty: 0 RF: 0 fluticasone propionate [Flonase Allergy Relief] 9.9 ML spray,suspension 1 spray Intranasal BID Qty: 0 RF: 0 [id number]-[id number] [Triumeq] 1 EACH tablet 1 tab PO QDAY Qty: 0 RF: 0 dexlansoprazole [Dexilant] 60 MG capsule,biphase delayed releas 60 mg PO QDAY Qty: 0 RF: 0 amitriptyline 50 MG tablet 50 mg PO HS Qty: 0 RF: 0 cetirizine 10 MG tablet 10 mg PO QDAY Qty: 0 RF: 0 glimepiride [Amaryl] 4 MG tablet 4 mg PO BID Qty: 0 RF: 0 losartan 25 MG tablet 25 mg PO QDAY Qty: 0 RF: 0 metformin [Fortamet] 1,000 MG tablet extended release 24hr 1,000 mg PO BEDTIME Qty: 0 RF: 0 tiotropium bromide [Spiriva with HandiHaler] 18 MCG capsule, w/inhalation device 1 puff INH QDAY Qty: 0 RF: 0 atorvastatin [Lipitor] 80 MG tablet 80 mg PO QDAY Qty: 0 RF: 0 gabapentin 800 MG tablet 800 mg PO TID Qty: 90 RF: 1 meperidine [Demerol] 100 MG tablet 100 mg PO Q4P Qty: 60 RF: 0 progesterone micronized [Prometrium] 100 mg capsule 100 mg PO QDAY Qty: 60 RF: 0 Estring 2 mg (7.5 mcg /24 hour) ring 1 vaginalrin VAG [id number] Qty: 1 RF: 4 estradiol 1 mg tablet See Rx Instructions .ROUTE .COMPLEX Qty: 30 RF: 5 oxycodone 5 mg tablet 5 mg PO Q6H PRN (Reason: pain) Qty: 10 RF: 0 clindamycin HCl 300 mg capsule 300 mg PO TID Qty: 21 RF: 0 metformin 500 mg Tablet 500 mg PO DAILY RF: 0 Lantus Solostar U-100 Insulin 100 unit/mL (3 mL) insulin pen 25 unit SUBCUT QPM Qty: 15 RF: 0 Referrals: Lorena Cook DO [Primary Care Provider] -
[2020-07-08 21:12] LABS: COVID19 -Nasal RAPID Negative (Negative)
[2020-07-08] MEDS: SODIUM CHLORIDE 0.9% 1,000 ML 1000 ML IV (21:31)
[2020-07-08 21:37] LABS: Add Manual Diff / Slide Review NO; Basophils Absolute Auto 100 /uL (0-100); Basophils Percent Auto 0.8 % (0-2); Eosinophils Absolute Auto 500 /uL (0-450); Eosinophils Percent Auto 4.9 % (2-4); Hematocrit 40.4 % (36-46); Hemoglobin 13.5 g/dL (12.0-16.0); Lymphocytes Absolute Auto 4300 /uL (1100-4500); Lymphocytes Percent Auto 40.7 % (25-40); Mean Corpuscular HGB Conc 33.5 % (30-36); Mean Corpuscular Hemoglobin 29.8 PG (26-34); Monocytes Absolute Auto 500 /uL (0-900); Monocytes Percent Auto 4.5 % (3-14); Neutrophils Absolute Auto 5200 /uL (1500-7000); Neutrophils Percent Auto 49.1 % (50-75); Platelet Count 207 X10^3/uL (150-400); Red Blood Cell Count 4.54 X10^6/uL (4.0-5.2); Red Cell Distribution Width 14.1 % (11.6-14.8); White Blood Cell Count 10.5 X10^3/uL (4.5-11.0)
[2020-07-08 21:44] LABS: Lactate (Lactic Acid) 1.4 mmol/L (0.7-2.1)
[2020-07-08 21:47] LABS: Alanine Aminotransferase 22 IU/L (<35); Albumin 4.2 g/dL (3.5-5.0); Albumin Globulin Ratio 1.4 (1.0-2.8); Alkaline Phosphatase 72 U/L (38-126); Aspartate Aminotransferase 21 IU/L (14-36); BUN Creatinine Ratio 15.3 (6-22); Bilirubin Total 0.2 mg/dL (0.2-1.3); Blood Urea Nitrogen 9 mg/dL (7-17); C-Reactive Protein Quant 0.8 mg/dL (<1.0); Calcium 9.5 mg/dL (8.4-10.2); Carbon Dioxide 30 mmol/L (22-32); Chloride 100 mmol/L (98-107); Creatine Kinase 34 U/L (30-135); Estimated Glomerular Filt Rate > 60.0 mL/min (>60); Glucose 129 mg/dL (70-100); HEMOLYSIS < 15 (0-50); Lipase 142 U/L (23-300); Magnesium 1.6 mg/dL (1.6-2.3); Potassium 3.9 mmol/L (3.4-5.1); Sodium 136 mmol/L (137-145); Total Protein 7.2 g/dL (6.3-8.2)
[2020-07-08 21:50] LABS: INR 1.1 (0.9-1.3); Prothrombin Time 12.4 SECONDS (10.1-12.7)
[2020-07-08 21:52] LABS: PTT Partial Thromboplastin Tim 32 SECONDS (26.4-36.2)
[2020-07-08 21:56] LABS: NT-proBNP (BNP-Adult 18+) 40 pg/mL (<125); Troponin I < 0.012 ng/mL (0.01-0.034)
[2020-07-08 22:01] LABS: D Dimer 245 ng/mL (<230)
[2020-07-08] MEDS: KETOROLAC 60 MG/2 ML VIAL 15 MG IV (22:04)
--- NOTE | 2020-07-08 22:06 | DI.CT.S_ITS ---
PROCEDURE: CT ANGIO CHEST ABDOMEN PELVIS INDICATIONS: chest pain with right arm pain, heaviness, numbness TECHNIQUE: Precontrast 5 mm thick sections acquired from the lung apices to the iliac crests. After the administration of intravenous contrast, 2.5 mm thick sections again acquired from the lung apices to the iliac crests. Maximum intensity projection (MIP) oblique sagittal and coronal reformats were then acquired. For radiation dose reduction, the following was used: automated exposure control. COMPARISON: [facility], CT, CT ABDOMEN PELVIS WITH CONTRAST, 12/15/2017, 11:16. [facility], CT, CT ABDOMEN PELVIS WITH CONTRAST, 12/21/2018, 15:22. [facility], CT, CT CHEST WITHOUT CONTRAST, 07/14/2019, 9:34. [facility], CT, CT ANGIO CHEST PE, 07/23/2017, 3:33. [facility], CT, CT ABD PELVIS W CON, 01/19/2015, 12:19. [facility], CT, ABD/PELVIS W/CON (PNL), 08/16/2011, 0:11. [facility], CT, CT ANGIO CHEST ABD, 07/31/2015, 19:51. [facility], CT, CT ABD PELVIS W CON, 09/14/2015, 19:45. FINDINGS: Image quality: Excellent. AORTA: Aorta is normal in caliber. There is CHEST: Lungs and pleura: No acute airspace opacities. No pleural effusions or pneumothorax. Central and peripheral airways are patent and normal in caliber. Small lung nodules are present. Nodule 1: 4 mm; RUL; series 6, image 70; ground-glass; 3 mm on 07/14/2019. Nodule 2: 2 mm x 2; LLL; series 6, image 1745; ground-glass; unchanged. Mediastinum: Heart size is normal. No pericardial effusion. There is a 1 x 2 cm subcarinal lymph node. No mediastinal or hilar adenopathy by size criteria. Central pulmonary arteries are normal in size. Esophagus is normal in caliber. Small hiatal hernias. Bones and chest wall: No axillary adenopathy by size criteria. Thyroid gland is normal . No suspicious bony lesions. No vertebral body compression fractures. ABDOMEN: Vasculature: Celiac trunk and mesenteric arteries are patent. Renal arteries are also patent. Solid organs: Hepatic steatosis. There is a 1.3 cm diameter hypodense nodule in the posterior segment of right hepatic lobe, most likely a cyst or hemangioma. Liver is normal in size and enhancement. Gallbladder is surgically absent. Biliary system is non dilated. Pancreas enhances normally. Spleen is normal in size and enhancement. No adrenal nodules. Both kidneys are normal in size and enhancement, without hydronephrosis. There are small nonobstructive renal calculi bilaterally. Peritoneum and bowel: No free fluid or air. A moderate amount of stool in colon. Bowel loops are normal in caliber and wall thickness. Nodes and vessels: No retroperitoneal or mesenteric adenopathy by size criteria. Inferior vena cava is normal in morphology. Miscellaneous: No ventral hernias. PELVIS: Genitourinary: Bladder wall thickness is normal. Miscellaneous: No inguinal hernias or adenopathy. No ventral hernias. Bones: No suspicious bony lesions. No vertebral body compression fractures. Discectomy at L5-S1. There is trace anterolisthesis of L5 on S1. L5 pars defects bilaterally. IMPRESSION: 1. No aortic aneurysm or dissection. 2. A borderline enlarged subcarinal lymph node is most likely reactive. 3. Small lung nodules. Please see in close follow-up recommendation. 4. A 1.3 cm low-density nodule in the right hepatic lobe, most likely a cyst or hemangioma. 4. Small nonobstructive renal calculi bilaterally. No significant discrepancy in acute findings with the nuclear reactor technician radiology preliminary report. Please see incidental findings and recommendations in the report. Fleischner Society criteria for SUB-SOLID lung nodule followup. Solitary pure ground-glass nodules5 mm or lessNo followup needed. >5 mm3 mo follow-up CT to confirm persistence. Then annual CT for 3 years. Part-solid nodules3 mo follow-up CT to confirm persistence. If persistent with solid component <5 mm, annual CT for at least 3 years. If solid component is 5 mm or more, biopsy or surgical resection. Consider PET-CT for lesions > 10 mm. Multiple sub-solid nodulesPure ground glass nodules [address] at 2 and 4 years. Pure ground glass nodules >5 mm without dominant lesion. [address] to confirm persistence, then annual followup CT for at least 3 years. Dominant nodule(s) with part-solid or solid component. [address] to confirm persistence. If persistent, consider biopsy or surgical resection, aimee if lesions have >5 mm solid component. Dictated by: Silvia Sosa M.D. on 07/09/2020 at 8:27 Approved by: Silvia Sosa M.D. on 07/09/2020 at 8:49
[2020-07-08 22:28] LABS: Influenza A - CEPHEID Flu A NEGATIVE (NEGATIVE); Influenza B - CEPHEID Flu B NEGATIVE (NEGATIVE)
[2020-07-08] MEDS: NITROGLYCERIN 0.4 MG SL TAB SL (22:47)
--- NOTE | 2020-07-08 23:02 | PC.NURSE ---
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 Pt given juice, half sandwich, and string cheese.
[2020-07-08] MEDS: HYDROMORPHONE 1 MG INJ IV (23:16)
[2020-07-09 00:10] VITALS: BP 112/56; PULSE 81; RESP 18; TEMP 36.7; O2SAT 98
== END 2020-07-09 00:11 | disposition home or self-care (01) ==
PROVIDERS: Emergency Provider Emergency Medicine; PCP Student in an Organized Health Care Education/Training Program
DX: R07.89 Other chest pain (principal); J18.9 Pneumonia, unspecified organism; R51.9 Headache, unspecified; R05 Cough; Z20.822 Contact with and (suspected) exposure to COVID-19
CPT/HCPCS: 36415; 70450; 71045; 71275; 74174; 80053; 81003; 82550; 83605; 83690; 83735; 83880; 84484; 85025; 85379; 85610; 85730; 86140; 87040; 87502; 87635; 93005; 93010; 96361; 96374; 96375; 99285; C9803; J1170; J1885; Q9967

== ENCOUNTER 2020-12-11 15:20 | Emergency (ER) | payer MEDICARE, OTHER, SELFPAY ==
[2020-12-11] VITALS (10 sets, daily range): BP systolic 138–166; BP diastolic 66–83; PULSE 70–98; RESP 14–20; TEMP 36.7; O2SAT 96–99; BMI 29.5
--- NOTE | 2020-12-11 15:27 | DI.RAD.S_ITS ---
PROCEDURE: XR CHEST 2V INDICATIONS: Shortness of breath TECHNIQUE: 2 views of the chest were acquired. COMPARISON: None. FINDINGS: Surgical changes and devices: None. Lungs and pleura: Lungs are clear. No pleural effusions or pneumothorax. Mediastinum: Mediastinal contours are normal. Heart size is normal. Bones and chest wall: No suspicious bony abnormalities. Soft tissues appear unremarkable. IMPRESSION: No acute cardiopulmonary process demonstrated radiographically. Dictated by: Asaf Joyce M.D. on 12/11/2020 at 15:56 Approved by: Asaf Joyce M.D. on 12/11/2020 at 15:56
[2020-12-11 15:54] LABS: Add Manual Diff / Slide Review NO; Basophils Absolute Auto 100 /uL (0-100); Basophils Percent Auto 0.6 % (0-2); Eosinophils Absolute Auto 100 /uL (0-450); Eosinophils Percent Auto 1.3 % (2-4); Hematocrit 44.4 % (36-46); Hemoglobin 14.7 g/dL (12.0-16.0); Lymphocytes Absolute Auto 3100 /uL (1100-4500); Lymphocytes Percent Auto 27.8 % (25-40); Mean Corpuscular HGB Conc 33.2 % (30-36); Mean Corpuscular Hemoglobin 29.9 PG (26-34); Monocytes Absolute Auto 300 /uL (0-900); Monocytes Percent Auto 2.5 % (3-14); Neutrophils Absolute Auto 7600 /uL (1500-7000); Neutrophils Percent Auto 67.8 % (50-75); Platelet Count 255 X10^3/uL (150-400); Red Blood Cell Count 4.93 X10^6/uL (4.0-5.2); Red Cell Distribution Width 13.9 % (11.6-14.8); White Blood Cell Count 11.2 X10^3/uL (4.5-11.0)
[2020-12-11 16:18] LABS: Alanine Aminotransferase 25 IU/L (<35); Albumin 4.3 g/dL (3.5-5.0); Albumin Globulin Ratio 1.3 (1.0-2.8); Alkaline Phosphatase 97 U/L (38-126); Aspartate Aminotransferase 34 IU/L (14-36); BUN Creatinine Ratio 9.7 (6-22); Bilirubin Total 0.4 mg/dL (0.2-1.3); Blood Urea Nitrogen 6 mg/dL (7-17); Calcium 9.9 mg/dL (8.4-10.2); Carbon Dioxide 27 mmol/L (22-32); Chloride 102 mmol/L (98-107); Estimated Glomerular Filt Rate > 60.0 mL/min (>60); Globulin 3.4 g/dL (1.7-4.1); Glucose 214 mg/dL (70-100); HEMOLYSIS < 15 (0-50); Potassium 4.2 mmol/L (3.4-5.1); Sodium 139 mmol/L (137-145); Total Protein 7.7 g/dL (6.3-8.2)
[2020-12-11 16:19] LABS: Lactate (Lactic Acid) 3.1 mmol/L (0.7-2.1)
[2020-12-11 16:23] LABS: COVID19 -Nasal RAPID Negative (Negative)
[2020-12-11 17:09] LABS: Creatine Kinase 29 U/L (30-135)
--- NOTE | 2020-12-11 17:16 | ED.CHESTPAIN ---
HPI - Chest Pain <Kavon Wright PA-C - Last Filed: 12/12/20 15:08> General Chief Complaint: Chest Pain Stated Complaint: chest pressure, pain, difficulty breathing Time Seen by Provider: 12/11/20 16:03 Source: patient Mode of arrival: Ambulatory Limitations: no limitations History of Present Illness HPI narrative: Shelbie presents today with chief complaint of ?rotting inside?. She reports that she has had symptoms for last 2 weeks that include occasional burning with urination, increased frequency of urination, chest pain described as a burning sensation in the middle of her chest that does not radiate, abdominal discomfort, fatigue, decreased appetite, headache, muscle aches, cough, chills. She reports that she has not been eating or drinking very much over the last few days. She has not tried anything to help alleviate her symptoms at this time. Related Data Home Medications Medication Instructions Recorded Confirmed prazosin 1 mg capsule (Minipress) 1 mg PO BID #0 03/10/16 07/03/20 propranolol 80 mg capsule,24 80 mg PO QDAY #0 03/10/16 07/03/20 hr,extended release albuterol sulfate 90 mcg/actuation 2 puff INH BIDP PRN #0 09/03/16 07/03/20 aerosol inhaler (Ventolin HFA) bupropion HCl 75 mg tablet 75 mg PO BID #0 09/03/16 07/03/20 clonazepam 1 mg tablet 1 mg PO TID #0 09/03/16 07/03/20 fluticasone propionate 50 1 spray INTRANASAL BID #0 09/03/16 07/03/20 mcg/actuation nasal spray,suspension (Flonase Allergy Relief) abacavir 600 mg-dolutegravir 50 1 tab PO QDAY #0 11/24/16 07/03/20 mg-lamivudine 300 mg tablet (Triumeq) amitriptyline 50 mg tablet 50 mg PO HS #0 11/24/16 07/03/20 cetirizine 10 mg tablet 10 mg PO QDAY #0 11/24/16 07/03/20 dexlansoprazole 60 mg 60 mg PO QDAY #0 11/24/16 07/03/20 capsule,biphase delayed release (Dexilant) glimepiride 4 mg tablet (Amaryl) 4 mg PO BID #0 11/24/16 07/03/20 losartan 25 mg tablet 25 mg PO QDAY #0 11/24/16 07/03/20 metformin 1,000 mg tablet,extended 1,000 mg PO BEDTIME #0 11/24/16 07/03/20 release 24hr (Fortamet) tiotropium bromide 18 mcg capsule 1 puff INH QDAY #0 11/24/16 07/03/20 with inhalation device (Spiriva with HandiHaler) atorvastatin 80 mg tablet (Lipitor) 80 mg PO QDAY #0 12/16/16 07/03/20 metformin 500 mg tablet 500 mg PO DAILY 05/01/20 07/03/20 Previous Rx's Medication Instructions Recorded gabapentin 800 mg tablet 800 mg PO TID #90 12/27/16 meperidine 100 mg tablet (Demerol) 100 mg PO Q4P #60 tab 12/27/16 progesterone micronized 100 mg 100 mg PO QDAY #60 cap 08/16/19 capsule (Prometrium) estradiol (Estring) 1 vaginalrin VAG [id number] #1 each 02/15/20 insulin glargine 100 unit/mL (3 25 unit SUBCUT QPM #15 ml 05/10/20 mL) subcutaneous pen (Lantus Solostar U-100 Insulin) fluconazole 150 mg tablet 150 mg PO ONCE #2 tab 05/18/20 clindamycin HCl 300 mg capsule 300 mg PO TID #21 cap 06/07/20 oxycodone 5 mg tablet 5 mg PO Q6H PRN #10 tab 06/07/20 doxycycline hyclate 100 mg tablet 100 mg PO BID #20 tab 07/08/20 estradiol 1 mg tablet See Rx Instructions .ROUTE 11/26/20 .COMPLEX #90 tab nitrofurantoin macrocrystal 100 mg 100 mg PO BID 7 Days #13 cap 12/11/20 capsule Allergies Allergy/AdvReac Type Severity Reaction Status Date / Time levofloxacin [LEVOFLOXACIN] Allergy Severe hives Verified 12/11/20 19:12 Sulfa (Sulfonamide Allergy Severe rash Verified 12/11/20 19:12 Antibiotics) [SULFA (SULFONAMIDE ANTIBIOTICS)] amoxicillin [From AUGMENTIN] Allergy Mild rash Verified 12/11/20 19:12 ciprofloxacin [From CIPRO] Allergy Mild rash Verified 12/11/20 19:12 clarithromycin [From BIAXIN] Allergy Mild rash Verified 12/11/20 19:12 clavulanic acid Allergy Mild rash Verified 12/11/20 19:12 [From AUGMENTIN] morphine [MORPHINE] AdvReac Mild n/v Verified 12/11/20 19:12 pregabalin [PREGABALIN] AdvReac Mild lost voice Verified 12/11/20 19:12 Review of Systems <Kavon Wright PA-C - Last Filed: 12/12/20 15:08> Review of Systems Narrative: As per HPI Patient History <Kavon Wright PA-C - Last Filed: 12/12/20 15:08> Medical History Anxiety Arthritis Bipolar disorder Depression Diabetes mellitus Fibroids GERD (gastroesophageal reflux disease) History of gastrointestinal symptoms HIV (human immunodeficiency virus infection) Hypertension PTSD (post-traumatic stress disorder) Surgical History History of cystoscopy (2013) History of stress incontinence procedure using tension free vaginal tape (2013) S/P functional endoscopic sinus surgery (2002) Status post arthroscopy (2003) Status post cholecystectomy (2011) Status post laparoscopic supracervical hysterectomy (2011) Family History Father Congestive heart failure Social History Smoking Status: Current every day smoker Smoking Status: Current every day smoker alcohol intake frequency: holidays/special occasions only Substance Use Type: marijuana Exam <Kavon Wright PA-C - Last Filed: 12/12/20 15:08> Narrative Exam Narrative: Exam Narrative: Const General: cooperative, healthy appearing, comfortable, no acute distress, well developed and well groomed Nutritional Appearance: Normal body habitus Orientation: alert and oriented x3 HENMT Head: normal to inspection and atraumatic Ears: hearing grossly normal bilaterally Nose: external nose normal and nares normal Face and sinus: normal facial exam Neck Neck: normal visual inspection and supple Resp Effort & Inspection: normal respiratory effort, able to speak in complete sentences, no audible wheezes, not labored, no nasal flaring and no respiratory distress, clear to auscultation bilaterally Cardiac Regular rate and rhythm, no discernible murmurs, rubs or gallops GI Normal bowel sounds, nondistended on inspection, nontender to palpation No CVA tenderness noted. Neuro General: alert, oriented x3, gait normal, tone normal and moves all extremities Cognition: normal cognition Speech: speech normal Gait: normal gait Psych Appearance: grossly normal and well kempt Mental Status: mental status grossly normal Speech and Movement: speech and movement normal Mood: congruent mood Affect: normal affect Initial Vital Signs Initial Vital Signs: Vital Signs Pulse Rate 98 H 12/11/20 15:28 Respiratory Rate 18 12/11/20 15:28 Blood Pressure 138/78 12/11/20 15:28 Pulse Oximetry 98 12/11/20 15:28 <Gurwinder Sheets DO - Last Filed: 12/12/20 15:28> Initial Vital Signs Initial Vital Signs: Vital Signs Pulse Rate 98 H 12/11/20 15:28 Respiratory Rate 18 12/11/20 15:28 Blood Pressure 138/78 12/11/20 15:28 Pulse Oximetry 98 12/11/20 15:28 Course <Kavon Wright PA-C - Last Filed: 12/12/20 15:08> Orders Ordered: Discontinued Medications Hydrocodone Bitart/Acetaminophen (Hydrocodone/Acet 5/325 Tablet) 1 tab PO NOW ONE Stop: 12/11/20 18:34 Last Admin: 12/11/20 18:47 Dose: 1 tab Documented by: MAURO Coleman Hydrox/Mg Hydrox/Simethicone 20 ml/ Lidocaine HCl 15 ml 0 ml PO NOW ONE Stop: 12/11/20 17:42 Last Admin: 12/11/20 17:55 Dose: 35 ml Documented by: JENNIE Sodium Chloride (Normal Saline 0.9%) 500 mls @ 1,000 mls/hr IV BOLUS ONE Stop: 12/11/20 17:44 Last Infusion: 12/11/20 18:13 Dose: 0 mls/hr Documented by: Admin: 12/11/20 17:31 Dose: 1,000 mls/hr Documented by: PATEL Ketorolac Tromethamine (Ketorolac 30 Mg/Ml Vial) 15 mg IV NOW ONE Stop: 12/11/20 17:18 Last Admin: 12/11/20 17:29 Dose: 15 mg Documented by: PATEL Nitrofurantoin Macrocrystals (Nitrofurantoin Er 100 Mg Capsule) 100 mg PO NOW ONE Stop: 12/11/20 19:09 Last Admin: 12/11/20 19:13 Dose: 100 mg Documented by: PATEL Vital Signs Vital signs: Vital Signs - 8 hr 12/11/20 15:28 12/11/20 15:41 12/11/20 17:01 Temperature 98.0 F Pulse Rate 98 H 90 Respiratory Rate 18 Blood Pressure 138/78 Pulse Oximetry 98 99 12/11/20 17:04 12/11/20 17:30 12/11/20 18:00 Temperature Pulse Rate 84 83 77 Respiratory Rate 17 18 14 Blood Pressure 165/83 H Pulse Oximetry 97 99 12/11/20 18:20 12/11/20 18:30 12/11/20 19:00 Temperature Pulse Rate 73 74 70 Respiratory Rate 16 20 Blood Pressure 166/73 H 143/67 H Pulse Oximetry 99 96 97 <Gurwinder Sheets DO - Last Filed: 12/12/20 15:28> Orders Ordered: Discontinued Medications Hydrocodone Bitart/Acetaminophen (Hydrocodone/Acet 5/325 Tablet) 1 tab PO NOW ONE Stop: 12/11/20 18:34 Last Admin: 12/11/20 18:47 Dose: 1 tab Documented by: MAURO Coleman Hydrox/Mg Hydrox/Simethicone 20 ml/ Lidocaine HCl 15 ml 0 ml PO NOW ONE Stop: 12/11/20 17:42 Last Admin: 12/11/20 17:55 Dose: 35 ml Documented by: JENNIE Sodium Chloride (Normal Saline 0.9%) 500 mls @ 1,000 mls/hr IV BOLUS ONE Stop: 12/11/20 17:44 Last Infusion: 12/11/20 18:13 Dose: 0 mls/hr Documented by: Admin: 12/11/20 17:31 Dose: 1,000 mls/hr Documented by: PATEL Ketorolac Tromethamine (Ketorolac 30 Mg/Ml Vial) 15 mg IV NOW ONE Stop: 12/11/20 17:18 Last Admin: 12/11/20 17:29 Dose: 15 mg Documented by: PATEL Nitrofurantoin Macrocrystals (Nitrofurantoin Er 100 Mg Capsule) 100 mg PO NOW ONE Stop: 12/11/20 19:09 Last Admin: 12/11/20 19:13 Dose: 100 mg Documented by: PATEL Vital Signs Vital signs: Vital Signs - 8 hr 12/11/20 15:28 12/11/20 15:41 12/11/20 17:01 Temperature 98.0 F Pulse Rate 98 H 90 Respiratory Rate 18 Blood Pressure 138/78 Pulse Oximetry 98 99 12/11/20 17:04 12/11/20 17:30 12/11/20 18:00 Temperature Pulse Rate 84 83 77 Respiratory Rate 17 18 14 Blood Pressure 165/83 H Pulse Oximetry 97 99 12/11/20 18:20 12/11/20 18:30 12/11/20 19:00 Temperature Pulse Rate 73 74 70 Respiratory Rate 16 20 Blood Pressure 166/73 H 143/67 H Pulse Oximetry 99 96 97 MDM - Chest Pain <Kavon Wright PA-C - Last Filed: 12/12/20 15:08> Lab Data Result diagrams: 12/11/20 15:45 12/11/20 15:45 Labs: Lab Results 12/11/20 12/11/20 12/11/20 Range/Units 15:45 15:45 15:45 WBC 11.2 H (4.5-11.0) X10^3/uL RBC 4.93 (4.0-5.2) X10^6/uL Hgb 14.7 (12.0-16.0) g/dL Hct 44.4 (36-46) % MCV 90.0 (80-100) fL MCH 29.9 (26-34) PG MCHC 33.2 (30-36) % RDW 13.9 (11.6-14.8) % Plt Count 255 (150-400) X10^3/uL Neut % (Auto) 67.8 (50-75) % Lymph % (Auto) 27.8 (25-40) % [place] % (Auto) 2.5 L (3-14) % Eos % (Auto) 1.3 L (2-4) % Baso % (Auto) 0.6 (0-2) % Neut # (Auto) 7600 H (4106-8047) /uL Lymph # (Auto) 3100 (9771-3842) /uL [place] # (Auto) 300 (0-900) /uL Eos # (Auto) 100 (0-450) /uL Baso # (Auto) 100 (0-100) /uL Sodium 139 (137-145) mmol/L Potassium 4.2 (3.4-5.1) mmol/L Chloride 102 (98-107) mmol/L Carbon Dioxide 27 (22-32) mmol/L BUN 6 L (7-17) mg/dL Creatinine 0.62 (0.52-1.04) mg/dL Estimated GFR > 60.0 (>60) mL/min BUN/Creatinine Ratio 9.7 (6-22) Glucose 214 H (70-100) mg/dL Lactate 3.1 H (0.7-2.1) mmol/L Calcium 9.9 (8.4-10.2) mg/dL Total Bilirubin 0.4 (0.2-1.3) mg/dL AST 34 (14-36) IU/L ALT 25 (<35) IU/L Alkaline Phosphatase 97 (38-126) U/L Total Creatine Kinase (30-135) U/L CK-MB (CK-2) CK-MB (CK-2) Rel Index Troponin I (0.01-0.034) ng/mL Total Protein 7.7 (6.3-8.2) g/dL Albumin 4.3 (3.5-5.0) g/dL Globulin 3.4 (1.7-4.1) g/dL Albumin/Globulin Ratio 1.3 (1.0-2.8) Urine Color Urine Appearance Urine pH (4.5-8.0) Ur Specific [place] (1.000-1.035) Urine Protein (Negative) Urine Glucose (UA) (Negative) g/dL Urine Ketones (NEGATIVE) Urine Occult Blood (Negative) Urine Nitrate (Negative) Urine Bilirubin (NEGATIVE) Urine Urobilinogen (0.2) E.U./dL Ur Leukocyte Esterase (NEGATIVE) Urine RBC (0-5/HPF) Urine WBC (0-5/HPF) Ur Squamous Epith Cells (0-5/HPF) Amorphous Sediment Urine Bacteria (None) Urine Mucus (Negative) Ur Culture Indicated? Ketones (<0.27) mmol/L SARS-CoV-2 (PCR) (Negative) 12/11/20 12/11/20 12/11/20 Range/Units 15:45 15:45 15:45 WBC (4.5-11.0) X10^3/uL RBC (4.0-5.2) X10^6/uL Hgb (12.0-16.0) g/dL Hct (36-46) % MCV (80-100) fL MCH (26-34) PG MCHC (30-36) % RDW (11.6-14.8) % Plt Count (150-400) X10^3/uL Neut % (Auto) (50-75) % Lymph % (Auto) (25-40) % [place] % (Auto) (3-14) % Eos % (Auto) (2-4) % Baso % (Auto) (0-2) % Neut # (Auto) (9483-1092) /uL Lymph # (Auto) (9505-5193) /uL [place] # (Auto) (0-900) /uL Eos # (Auto) (0-450) /uL Baso # (Auto) (0-100) /uL Sodium (137-145) mmol/L Potassium (3.4-5.1) mmol/L Chloride (98-107) mmol/L Carbon Dioxide (22-32) mmol/L BUN (7-17) mg/dL Creatinine (0.52-1.04) mg/dL Estimated GFR (>60) mL/min BUN/Creatinine Ratio (6-22) Glucose (70-100) mg/dL Lactate (0.7-2.1) mmol/L Calcium (8.4-10.2) mg/dL Total Bilirubin (0.2-1.3) mg/dL AST (14-36) IU/L ALT (<35) IU/L Alkaline Phosphatase (38-126) U/L Total Creatine Kinase 29 L (30-135) U/L CK-MB (CK-2) TNP CK-MB (CK-2) Rel Index TNP Troponin I < 0.012 (0.01-0.034) ng/mL Total Protein (6.3-8.2) g/dL Albumin (3.5-5.0) g/dL Globulin (1.7-4.1) g/dL Albumin/Globulin Ratio (1.0-2.8) Urine Color Urine Appearance Urine pH (4.5-8.0) Ur Specific [place] (1.000-1.035) Urine Protein (Negative) Urine Glucose (UA) (Negative) g/dL Urine Ketones (NEGATIVE) Urine Occult Blood (Negative) Urine Nitrate (Negative) Urine Bilirubin (NEGATIVE) Urine Urobilinogen (0.2) E.U./dL Ur Leukocyte Esterase (NEGATIVE) Urine RBC (0-5/HPF) Urine WBC (0-5/HPF) Ur Squamous Epith Cells (0-5/HPF) Amorphous Sediment Urine Bacteria (None) Urine Mucus (Negative) Ur Culture Indicated? Ketones 0.12 (<0.27) mmol/L SARS-CoV-2 (PCR) Negative (Negative) 12/11/20 12/11/20 Range/Units 18:17 18:42 WBC (4.5-11.0) X10^3/uL RBC (4.0-5.2) X10^6/uL Hgb (12.0-16.0) g/dL Hct (36-46) % MCV (80-100) fL MCH (26-34) PG MCHC (30-36) % RDW (11.6-14.8) % Plt Count (150-400) X10^3/uL Neut % (Auto) (50-75) % Lymph % (Auto) (25-40) % [place] % (Auto) (3-14) % Eos % (Auto) (2-4) % Baso % (Auto) (0-2) % Neut # (Auto) (0232-8039) /uL Lymph # (Auto) (0529-9267) /uL [place] # (Auto) (0-900) /uL Eos # (Auto) (0-450) /uL Baso # (Auto) (0-100) /uL Sodium (137-145) mmol/L Potassium (3.4-5.1) mmol/L Chloride (98-107) mmol/L Carbon Dioxide (22-32) mmol/L BUN (7-17) mg/dL Creatinine (0.52-1.04) mg/dL Estimated GFR (>60) mL/min BUN/Creatinine Ratio (6-22) Glucose (70-100) mg/dL Lactate 2.6 H (0.7-2.1) mmol/L Calcium (8.4-10.2) mg/dL Total Bilirubin (0.2-1.3) mg/dL AST (14-36) IU/L ALT (<35) IU/L Alkaline Phosphatase (38-126) U/L Total Creatine Kinase (30-135) U/L CK-MB (CK-2) CK-MB (CK-2) Rel Index Troponin I (0.01-0.034) ng/mL Total Protein (6.3-8.2) g/dL Albumin (3.5-5.0) g/dL Globulin (1.7-4.1) g/dL Albumin/Globulin Ratio (1.0-2.8) Urine Color Yellow Urine Appearance Slightly cloudy Urine pH 5.0 (4.5-8.0) Ur Specific [place] 1.020 (1.000-1.035) Urine Protein Trace H (Negative) Urine Glucose (UA) Trace H (Negative) g/dL Urine Ketones Negative (NEGATIVE) Urine Occult Blood Negative (Negative) Urine Nitrate Negative (Negative) Urine Bilirubin Negative (NEGATIVE) Urine Urobilinogen 0.2 (0.2) E.U./dL Ur Leukocyte Esterase Negative (NEGATIVE) Urine RBC None seen (0-5/HPF) Urine WBC 5-10/hpf H (0-5/HPF) Ur Squamous Epith Cells 5-10 /hpf H (0-5/HPF) Amorphous Sediment 1+ Urine Bacteria Many (>30) H (None) Urine Mucus 1+ H (Negative) Ur Culture Indicated? Specimen cultured Ketones (<0.27) mmol/L SARS-CoV-2 (PCR) (Negative) MDM Narrative Medical decision making narrative: Shelbie has multiple complaints with an overall reassuring examination. She had an elevated lactic acid but is afebrile, does not have an elevation in her white blood cell count, is non tachycardic nor tachypneic. She does not have any evidence of acute pyelonephritis but does have an arguably convincing urinalysis. We will treat for acute cystitis at this time with strict return precautions if symptoms fail to improve. Patient verbalizes understanding and agrees to plan and has no further concerns at this time. Thank you A [id number] system was used with the dictation of this note. Please disregard any spelling or grammatical errors. <Gurwinder Sheets DO - Last Filed: 12/12/20 15:28> Lab Data Labs: Lab Results 12/11/20 12/11/20 12/11/20 Range/Units 15:45 15:45 15:45 WBC 11.2 H (4.5-11.0) X10^3/uL RBC 4.93 (4.0-5.2) X10^6/uL Hgb 14.7 (12.0-16.0) g/dL Hct 44.4 (36-46) % MCV 90.0 (80-100) fL MCH 29.9 (26-34) PG MCHC 33.2 (30-36) % RDW 13.9 (11.6-14.8) % Plt Count 255 (150-400) X10^3/uL Neut % (Auto) 67.8 (50-75) % Lymph % (Auto) 27.8 (25-40) % [place] % (Auto) 2.5 L (3-14) % Eos % (Auto) 1.3 L (2-4) % Baso % (Auto) 0.6 (0-2) % Neut # (Auto) 7600 H (1711-3762) /uL Lymph # (Auto) 3100 (7975-3214) /uL [place] # (Auto) 300 (0-900) /uL Eos # (Auto) 100 (0-450) /uL Baso # (Auto) 100 (0-100) /uL Sodium 139 (137-145) mmol/L Potassium 4.2 (3.4-5.1) mmol/L Chloride 102 (98-107) mmol/L Carbon Dioxide 27 (22-32) mmol/L BUN 6 L (7-17) mg/dL Creatinine 0.62 (0.52-1.04) mg/dL Estimated GFR > 60.0 (>60) mL/min BUN/Creatinine Ratio 9.7 (6-22) Glucose 214 H (70-100) mg/dL Lactate 3.1 H (0.7-2.1) mmol/L Calcium 9.9 (8.4-10.2) mg/dL Total Bilirubin 0.4 (0.2-1.3) mg/dL AST 34 (14-36) IU/L ALT 25 (<35) IU/L Alkaline Phosphatase 97 (38-126) U/L Total Creatine Kinase (30-135) U/L CK-MB (CK-2) CK-MB (CK-2) Rel Index Troponin I (0.01-0.034) ng/mL Total Protein 7.7 (6.3-8.2) g/dL Albumin 4.3 (3.5-5.0) g/dL Globulin 3.4 (1.7-4.1) g/dL Albumin/Globulin Ratio 1.3 (1.0-2.8) Urine Color Urine Appearance Urine pH (4.5-8.0) Ur Specific [place] (1.000-1.035) Urine Protein (Negative) Urine Glucose (UA) (Negative) g/dL Urine Ketones (NEGATIVE) Urine Occult Blood (Negative) Urine Nitrate (Negative) Urine Bilirubin (NEGATIVE) Urine Urobilinogen (0.2) E.U./dL Ur Leukocyte Esterase (NEGATIVE) Urine RBC (0-5/HPF) Urine WBC (0-5/HPF) Ur Squamous Epith Cells (0-5/HPF) Amorphous Sediment Urine Bacteria (None) Urine Mucus (Negative) Ur Culture Indicated? Ketones (<0.27) mmol/L SARS-CoV-2 (PCR) (Negative) 12/11/20 12/11/20 12/11/20 Range/Units 15:45 15:45 15:45 WBC (4.5-11.0) X10^3/uL RBC (4.0-5.2) X10^6/uL Hgb (12.0-16.0) g/dL Hct (36-46) % MCV (80-100) fL MCH (26-34) PG MCHC (30-36) % RDW (11.6-14.8) % Plt Count (150-400) X10^3/uL Neut % (Auto) (50-75) % Lymph % (Auto) (25-40) % [place] % (Auto) (3-14) % Eos % (Auto) (2-4) % Baso % (Auto) (0-2) % Neut # (Auto) (8476-7964) /uL Lymph # (Auto) (2397-8035) /uL [place] # (Auto) (0-900) /uL Eos # (Auto) (0-450) /uL Baso # (Auto) (0-100) /uL Sodium (137-145) mmol/L Potassium (3.4-5.1) mmol/L Chloride (98-107) mmol/L Carbon Dioxide (22-32) mmol/L BUN (7-17) mg/dL Creatinine (0.52-1.04) mg/dL Estimated GFR (>60) mL/min BUN/Creatinine Ratio (6-22) Glucose (70-100) mg/dL Lactate (0.7-2.1) mmol/L Calcium (8.4-10.2) mg/dL Total Bilirubin (0.2-1.3) mg/dL AST (14-36) IU/L ALT (<35) IU/L Alkaline Phosphatase (38-126) U/L Total Creatine Kinase 29 L (30-135) U/L CK-MB (CK-2) TNP CK-MB (CK-2) Rel Index TNP Troponin I < 0.012 (0.01-0.034) ng/mL Total Protein (6.3-8.2) g/dL Albumin (3.5-5.0) g/dL Globulin (1.7-4.1) g/dL Albumin/Globulin Ratio (1.0-2.8) Urine Color Urine Appearance Urine pH (4.5-8.0) Ur Specific [place] (1.000-1.035) Urine Protein (Negative) Urine Glucose (UA) (Negative) g/dL Urine Ketones (NEGATIVE) Urine Occult Blood (Negative) Urine Nitrate (Negative) Urine Bilirubin (NEGATIVE) Urine Urobilinogen (0.2) E.U./dL Ur Leukocyte Esterase (NEGATIVE) Urine RBC (0-5/HPF) Urine WBC (0-5/HPF) Ur Squamous Epith Cells (0-5/HPF) Amorphous Sediment Urine Bacteria (None) Urine Mucus (Negative) Ur Culture Indicated? Ketones 0.12 (<0.27) mmol/L SARS-CoV-2 (PCR) Negative (Negative) 12/11/20 12/11/20 Range/Units 18:17 18:42 WBC (4.5-11.0) X10^3/uL RBC (4.0-5.2) X10^6/uL Hgb (12.0-16.0) g/dL Hct (36-46) % MCV (80-100) fL MCH (26-34) PG MCHC (30-36) % RDW (11.6-14.8) % Plt Count (150-400) X10^3/uL Neut % (Auto) (50-75) % Lymph % (Auto) (25-40) % [place] % (Auto) (3-14) % Eos % (Auto) (2-4) % Baso % (Auto) (0-2) % Neut # (Auto) (8099-5305) /uL Lymph # (Auto) (2881-1237) /uL [place] # (Auto) (0-900) /uL Eos # (Auto) (0-450) /uL Baso # (Auto) (0-100) /uL Sodium (137-145) mmol/L Potassium (3.4-5.1) mmol/L Chloride (98-107) mmol/L Carbon Dioxide (22-32) mmol/L BUN (7-17) mg/dL Creatinine (0.52-1.04) mg/dL Estimated GFR (>60) mL/min BUN/Creatinine Ratio (6-22) Glucose (70-100) mg/dL Lactate 2.6 H (0.7-2.1) mmol/L Calcium (8.4-10.2) mg/dL Total Bilirubin (0.2-1.3) mg/dL AST (14-36) IU/L ALT (<35) IU/L Alkaline Phosphatase (38-126) U/L Total Creatine Kinase (30-135) U/L CK-MB (CK-2) CK-MB (CK-2) Rel Index Troponin I (0.01-0.034) ng/mL Total Protein (6.3-8.2) g/dL Albumin (3.5-5.0) g/dL Globulin (1.7-4.1) g/dL Albumin/Globulin Ratio (1.0-2.8) Urine Color Yellow Urine Appearance Slightly cloudy Urine pH 5.0 (4.5-8.0) Ur Specific [place] 1.020 (1.000-1.035) Urine Protein Trace H (Negative) Urine Glucose (UA) Trace H (Negative) g/dL Urine Ketones Negative (NEGATIVE) Urine Occult Blood Negative (Negative) Urine Nitrate Negative (Negative) Urine Bilirubin Negative (NEGATIVE) Urine Urobilinogen 0.2 (0.2) E.U./dL Ur Leukocyte Esterase Negative (NEGATIVE) Urine RBC None seen (0-5/HPF) Urine WBC 5-10/hpf H (0-5/HPF) Ur Squamous Epith Cells 5-10 /hpf H (0-5/HPF) Amorphous Sediment 1+ Urine Bacteria Many (>30) H (None) Urine Mucus 1+ H (Negative) Ur Culture Indicated? Specimen cultured Ketones (<0.27) mmol/L SARS-CoV-2 (PCR) (Negative) Discharge Plan Departure Patient Disposition: Home Clinical Impression: UTI (urinary tract infection) Qualifiers: Urinary tract infection type: site unspecified Hematuria presence: without hematuria Qualified Code(s): N39.0 - Urinary tract infection, site not specified Activity Restrictions/Additional Instructions: It was very nice to meet you this evening. Your evaluation today has generally been reassuring. You have evidence of a urinary tract infection. This could be contributing to your other symptoms also. We will treat this with antibiotics and have you follow-up with your primary care provider if your symptoms do not improve as expected. You experience fever, worsening new back pain, worsening abdominal pain, or have any additional concerns or complaints do not hesitate to return for re-evaluation. Thank you Kavon Wright PAC Prescriptions: New nitrofurantoin macrocrystal 100 mg capsule 100 mg PO BID 7 Days Qty: 13 RF: 0 No Action fluconazole 150 mg tablet 150 mg PO ONCE Qty: 2 RF: 0 propranolol 80 MG capsule,extended release 24 hr 80 mg PO QDAY Qty: 0 RF: 0 prazosin [Minipress] 1 MG capsule 1 mg PO BID Qty: 0 RF: 0 bupropion HCl 75 MG tablet 75 mg PO BID Qty: 0 RF: 0 albuterol sulfate [Ventolin HFA] 90 MCG/PUFF HFA aerosol inhaler 2 puff INH BIDP PRNQty: 0 RF: 0 clonazepam 1 MG tablet 1 mg PO TID Qty: 0 RF: 0 fluticasone propionate [Flonase Allergy Relief] 9.9 ML spray,suspension 1 spray Intranasal BID Qty: 0 RF: 0 [id number] [Triumeq] 1 EACH tablet 1 tab PO QDAY Qty: 0 RF: 0 dexlansoprazole [Dexilant] 60 MG capsule,biphase delayed releas 60 mg PO QDAY Qty: 0 RF: 0 amitriptyline 50 MG tablet 50 mg PO HS Qty: 0 RF: 0 cetirizine 10 MG tablet 10 mg PO QDAY Qty: 0 RF: 0 glimepiride [Amaryl] 4 MG tablet 4 mg PO BID Qty: 0 RF: 0 losartan 25 MG tablet 25 mg PO QDAY Qty: 0 RF: 0 metformin [Fortamet] 1,000 MG tablet extended release 24hr 1,000 mg PO BEDTIME Qty: 0 RF: 0 tiotropium bromide [Spiriva with HandiHaler] 18 MCG capsule, w/inhalation device 1 puff INH QDAY Qty: 0 RF: 0 atorvastatin [Lipitor] 80 MG tablet 80 mg PO QDAY Qty: 0 RF: 0 gabapentin 800 MG tablet 800 mg PO TID Qty: 90 RF: 1 meperidine [Demerol] 100 MG tablet 100 mg PO Q4P Qty: 60 RF: 0 progesterone micronized [Prometrium] 100 mg capsule 100 mg PO QDAY Qty: 60 RF: 0 Estring 2 mg (7.5 mcg /24 hour) ring 1 vaginalrin VAG [id number] Qty: 1 RF: 4 estradiol 1 mg tablet See Rx Instructions .ROUTE .COMPLEX Qty: 90 RF: 3 oxycodone 5 mg tablet 5 mg PO Q6H PRN (Reason: pain) Qty: 10 RF: 0 clindamycin HCl 300 mg capsule 300 mg PO TID Qty: 21 RF: 0 metformin 500 mg Tablet 500 mg PO DAILY RF: 0 Lantus Solostar U-100 Insulin 100 unit/mL (3 mL) insulin pen 25 unit SUBCUT QPM Qty: 15 RF: 0 doxycycline hyclate 100 mg tablet 100 mg PO BID Qty: 20 RF: 0 Referrals: Lorena Cook DO [Primary Care Provider] - <Gurwinder Sheets DO - Last Filed: 12/12/20 15:28> Cosign ED Attending Cosignature Attestation: Dr Sheets Co-Sign Statement: I was available for consultation during this patient's emergency department visit. This chart is signed by myself for administrative purposes only. I did not have direct contact with this patient during this visit. They were seen independently by the APC.
[2020-12-11 17:22] LABS: Troponin I < 0.012 ng/mL (0.01-0.034)
[2020-12-11] MEDS: KETOROLAC 30 MG/ML VIAL 15 MG IV (17:29)
[2020-12-11] MEDS: SODIUM CHLORIDE 0.9% 500 ML 1000 ML IV (17:31)
[2020-12-11 17:37] LABS: Ketones (Beta-Hydroxybutyrate) 0.12 mmol/L (<0.27)
[2020-12-11 17:50] LABS: Reflexed Lactate in 2 Hours Y
[2020-12-11] MEDS: MAG HYDROX/ALUMINUM/SIMETH SUS 20 ML, LIDOCAINE VISCOUS 2% 15 ML PO (17:55)
[2020-12-11 18:30] LABS: RBC Urine None Seen (0-5/HPF)
[2020-12-11 18:34] LABS: Bilirubin Urine UA NEGATIVE (NEGATIVE); Color Urine UA YELLOW; Glucose Urine UA TRACE g/dL (Negative); Ketones Urine UA NEGATIVE (NEGATIVE); Leukocyte Esterase Urine UA NEGATIVE (NEGATIVE); Nitrite Urine UA NEGATIVE (Negative); Occult Blood Urine UA NEGATIVE (Negative); Protein Urine UA TRACE (Negative); Urobilinogen Urine UA 0.2 E.U./dL (0.2)
[2020-12-11] MEDS: HYDROCODONE/ACET 5/325 TABLET 1 TAB PO (18:47)
[2020-12-11 18:48] LABS: Appearance Urine UA Slightly Cloudy; Squamous Epithelial Cell Urine 5-10 /HPF (0-5/HPF); WBC Urine 5-10/HPF (0-5/HPF)
[2020-12-11 18:49] LABS: Amorphous Sediment Urine 1+; Bacteria Urine Many (>30); Culture Indicated Urine Specimen Cultured; Mucus Urine 1+ (Negative)
[2020-12-11 18:57] LABS: Lactate 2HR (Lactic Acid Rflx) 2.6 mmol/L (0.7-2.1)
[2020-12-11] MEDS: NITROFURANTOIN ER 100 MG CAPSULE PO (19:13)
== END 2020-12-11 19:35 | disposition home or self-care (01) ==
PROVIDERS: Emergency Medicine; Emergency Provider Physician Assistant; PCP Student in an Organized Health Care Education/Training Program
DX: N39.0 Urinary tract infection, site not specified (principal); R07.9 Chest pain, unspecified; R30.0 Dysuria; Z20.822 Contact with and (suspected) exposure to COVID-19
CPT/HCPCS: 36415; 71046; 80053; 81001; 82009; 82550; 83605; 84484; 85025; 87077; 87086; 87147; 87635; 93005; 93010; 96361; 96374; 99284; C9803; J1885

== ENCOUNTER 2021-03-24 19:39 | Emergency (ER) | payer MEDICARE, OTHER, SELFPAY ==
[2021-03-24 19:49] VITALS: BP 127/65; PULSE 79; RESP 18; TEMP 36.9; O2SAT 97
--- NOTE | 2021-03-24 19:52 | DI.RAD.S_ITS ---
IMPRESSION: Nonspecific bowel gas pattern without definite evidence of obstruction. If patient's symptoms persist or worsen, consider CT scan of the abdomen pelvis for additional evaluation. Dictated by: Fe Light MD, PhD on 03/24/2021 at 20:37 Approved by: Fe Light MD, PhD on 03/24/2021 at 20:39
[2021-03-24 20:12] LABS: Add Manual Diff / Slide Review NO; Basophils Absolute Auto 200 /uL (0-100); Basophils Percent Auto 1.4 % (0-2); Eosinophils Absolute Auto 300 /uL (0-450); Eosinophils Percent Auto 2.4 % (2-4); Hematocrit 43.8 % (36-46); Hemoglobin 14.6 g/dL (12.0-16.0); Lymphocytes Absolute Auto 4100 /uL (1100-4500); Mean Corpuscular HGB Conc 33.2 % (30-36); Mean Corpuscular Hemoglobin 29.4 PG (26-34); Mean Corpuscular Volume 88.3 fL (80-100); Monocytes Absolute Auto 500 /uL (0-900); Monocytes Percent Auto 4.1 % (3-14); Neutrophils Absolute Auto 6400 /uL (1500-7000); Neutrophils Percent Auto 56.1 % (50-75); Platelet Count 272 X10^3/uL (150-400); Red Blood Cell Count 4.97 X10^6/uL (4.0-5.2); Red Cell Distribution Width 13.9 % (11.6-14.8); White Blood Cell Count 11.5 X10^3/uL (4.5-11.0)
[2021-03-24 20:16] LABS: Alanine Aminotransferase 21 IU/L (<35); Albumin 4.2 g/dL (3.5-5.0); Albumin Globulin Ratio 1.2 (1.0-2.8); Alkaline Phosphatase 78 U/L (38-126); Aspartate Aminotransferase 26 IU/L (14-36); BUN Creatinine Ratio 8.5 (6-22); Bilirubin Total 0.4 mg/dL (0.2-1.3); Blood Urea Nitrogen 7 mg/dL (7-17); Calcium 9.5 mg/dL (8.4-10.2); Carbon Dioxide 27 mmol/L (22-32); Chloride 100 mmol/L (98-107); Estimated Glomerular Filt Rate > 60.0 mL/min (>60); Globulin 3.6 g/dL (1.7-4.1); Glucose 165 mg/dL (70-100); HEMOLYSIS < 15 (0-50); Lipase 107 U/L (23-300); Potassium 4.1 mmol/L (3.4-5.1); Sodium 138 mmol/L (137-145); Total Protein 7.8 g/dL (6.3-8.2)
[2021-03-25] VITALS (12 sets, daily range): BP systolic 108–131; BP diastolic 56–77; PULSE 94–105; O2SAT 95–98
[2021-03-25] MEDS: ONDANSETRON 4 MG ODT SL ×2 (00:01→01:59)
--- NOTE | 2021-03-25 01:36 | ED.ABDPAIN ---
HPI - Abdominal Pain General Chief Complaint: Abdominal Pain Stated Complaint: Sick/Stomach Pain/Dizzy/Trouble With BM's Time Seen by Provider: 03/25/21 01:35 Source: patient Mode of arrival: Ambulatory History of Present Illness HPI narrative: Patient is a 50-year-old female history of HIV diabetes, hypertension, anxiety, bipolar presenting today with least 6 weeks of ongoing abdominal pain. She says that she has lost 10 lb. It hurts every time she eats. She occasionally has diarrhea but not any longer she feels nauseous at times but not necessarily vomiting. No fever or chills. She occasionally gets dizzy, when standing. No tingling or weakness. No chest pain or heart palpitations. Related Data Home Medications Medication Instructions Recorded Confirmed prazosin 1 mg capsule (Minipress) 1 mg PO BID #0 03/10/16 07/03/20 propranolol 80 mg capsule,24 80 mg PO QDAY #0 03/10/16 07/03/20 hr,extended release albuterol sulfate 90 mcg/actuation 2 puff INH BIDP PRN #0 09/03/16 07/03/20 aerosol inhaler (Ventolin HFA) bupropion HCl 75 mg tablet 75 mg PO BID #0 09/03/16 07/03/20 clonazepam 1 mg tablet 1 mg PO TID #0 09/03/16 07/03/20 fluticasone propionate 50 1 spray INTRANASAL BID #0 09/03/16 07/03/20 mcg/actuation nasal spray,suspension (Flonase Allergy Relief) abacavir 600 mg-dolutegravir 50 1 tab PO QDAY #0 11/24/16 07/03/20 mg-lamivudine 300 mg tablet (Triumeq) amitriptyline 50 mg tablet 50 mg PO HS #0 11/24/16 07/03/20 cetirizine 10 mg tablet 10 mg PO QDAY #0 11/24/16 07/03/20 dexlansoprazole 60 mg 60 mg PO QDAY #0 11/24/16 07/03/20 capsule,biphase delayed release (Dexilant) glimepiride 4 mg tablet (Amaryl) 4 mg PO BID #0 11/24/16 07/03/20 losartan 25 mg tablet 25 mg PO QDAY #0 11/24/16 07/03/20 metformin 1,000 mg tablet,extended 1,000 mg PO BEDTIME #0 11/24/16 07/03/20 release 24hr (Fortamet) tiotropium bromide 18 mcg capsule 1 puff INH QDAY #0 11/24/16 07/03/20 with inhalation device (Spiriva with HandiHaler) atorvastatin 80 mg tablet (Lipitor) 80 mg PO QDAY #0 12/16/16 07/03/20 metformin 500 mg tablet 500 mg PO DAILY 05/01/20 07/03/20 Previous Rx's Medication Instructions Recorded gabapentin 800 mg tablet 800 mg PO TID #90 12/27/16 meperidine 100 mg tablet (Demerol) 100 mg PO Q4P #60 tab 12/27/16 progesterone micronized 100 mg 100 mg PO QDAY #60 cap 08/16/19 capsule (Prometrium) estradiol (Estring) 1 vaginalrin VAG [id number] #1 each 02/15/20 insulin glargine 100 unit/mL (3 25 unit (0.25 mL) SUBCUT QPM #15 ml 05/10/20 mL) subcutaneous pen (Lantus Solostar U-100 Insulin) fluconazole 150 mg tablet 150 mg PO ONCE #2 tab 05/18/20 clindamycin HCl 300 mg capsule 300 mg PO TID #21 cap 06/07/20 oxycodone 5 mg tablet 5 mg PO Q6H PRN #10 tab 06/07/20 doxycycline hyclate 100 mg tablet 100 mg PO BID #20 tab 07/08/20 estradiol 1 mg tablet See Rx Instructions .ROUTE 11/26/20 .COMPLEX #90 tab hydrocodone 5 mg-acetaminophen 325 1 tab PO Q6H PRN #10 tab 03/25/21 mg tablet sucralfate 100 mg/mL oral 10 ml PO QID #420 ml 03/25/21 suspension (Carafate) Allergies Allergy/AdvReac Type Severity Reaction Status Date / Time levofloxacin [LEVOFLOXACIN] Allergy Severe hives Verified 12/11/20 19:12 Sulfa (Sulfonamide Allergy Severe rash Verified 12/11/20 19:12 Antibiotics) [SULFA (SULFONAMIDE ANTIBIOTICS)] amoxicillin [From AUGMENTIN] Allergy Mild rash Verified 12/11/20 19:12 ciprofloxacin [From CIPRO] Allergy Mild rash Verified 12/11/20 19:12 clarithromycin [From BIAXIN] Allergy Mild rash Verified 12/11/20 19:12 clavulanic acid Allergy Mild rash Verified 12/11/20 19:12 [From AUGMENTIN] morphine [MORPHINE] AdvReac Mild n/v Verified 12/11/20 19:12 pregabalin [PREGABALIN] AdvReac Mild lost voice Verified 12/11/20 19:12 Review of Systems Review of Systems Narrative: GENERAL: Denies chills, fatigue, malaise, fever, sweats, travel HEENT: Denies sinus pain, ear pain, sore throat, difficulty swallowing, neck pain RESPIRATORY: Denies dyspnea, cough, wheezing, hemoptysis, sputum. CARDIOVASCULAR: Denies chest pain, palpitations, orthopnea, edema GASTROINTESTINAL: See HPI : Denies dysuria, frequency, incontinence, hematuria, urinary retention, flank pain. MUSCULOSKELETAL: Denies weakness, joint pain, or bony pain SKIN: No rash, no erythema, no pruritus NEUROLOGIC: Denies weakness, dizziness, headache, numbness, change in speech, confusion PSYCHIATRIC: No concerning psychosocial issues. 12 point review of systems is negative except for those stated above and HPI Patient History Medical History Anxiety Arthritis Bipolar disorder Depression Diabetes mellitus Fibroids GERD (gastroesophageal reflux disease) History of gastrointestinal symptoms HIV (human immunodeficiency virus infection) Hypertension PTSD (post-traumatic stress disorder) Surgical History History of cystoscopy (2013) History of stress incontinence procedure using tension free vaginal tape (2013) S/P functional endoscopic sinus surgery (2002) Status post arthroscopy (2003) Status post cholecystectomy (2011) Status post laparoscopic supracervical hysterectomy (2011) Family History Father Congestive heart failure Social History Smoking Status: Current every day smoker Smoking Status: Current every day smoker alcohol intake frequency: holidays/special occasions only Substance Use Type: marijuana Exam Initial Vital Signs Initial Vital Signs: Vital Signs Temperature 98.5 F 03/24/21 19:49 Pulse Rate 79 03/24/21 19:49 Respiratory Rate 18 03/24/21 19:49 Blood Pressure 127/65 03/24/21 19:49 Pulse Oximetry 97 03/24/21 19:49 GENERAL: Alert 50-year-old female watching movie no acute distress but tearful upon questioning HEENT: Head atraumatic,EOMI, pupils reactive, face symmetric, [moist] mucous membranes CARDIOVASCULAR: Regular rate and rhythm without murmurs, rubs or gallops. RESPIRATORY: Breath sounds equal bilaterally, no wheezes rales or rhonchi. ABDOMEN: Soft, nontender. Normoactive bowel sounds all 4 quadrants. No guarding or rebound. EXTREMITIES: Normal range of motion, no clubbing or edema. Neurovascularly intact NEUROLOGICAL: Alert and oriented x4.Normal gait and speech. SKIN: Warm, dry, no laceration, no petechiae, no rashes or lesions. Course Orders Ordered: Discontinued Medications Al Hydrox/Mg Hydrox/Simethicone 20 ml/ Lidocaine HCl 15 ml 0 ml PO NOW ONE Stop: 03/25/21 01:54 Last Admin: 03/25/21 01:59 Dose: 35 ml Documented by: FAITH Morphine Sulfate (Morphine 4 Mg/Ml Inj) 4 mg SUBCUT NOW ONE Stop: 03/25/21 03:18 Last Admin: 03/25/21 03:26 Dose: 4 mg Documented by: FAITH Ondansetron HCl (Ondansetron 4 Mg Odt) 4 mg SL NOW ONE Stop: 03/24/21 23:10 Last Admin: 03/25/21 00:01 Dose: 4 mg Documented by: FAITH Ondansetron HCl (Ondansetron 4 Mg Odt) 4 mg SL NOW ONE Stop: 03/25/21 01:54 Last Admin: 03/25/21 01:59 Dose: 4 mg Documented by: FAITH Vital Signs Vital signs: Vital Signs - 8 hr 03/24/21 19:49 03/25/21 00:03 03/25/21 00:30 Temperature 98.5 F Pulse Rate 79 103 H 101 H Pulse Rate [Orthostatic Lying] Pulse Rate [Orthostatic Sitting] Pulse Rate [Orthostatic Standing] Respiratory Rate 18 Blood Pressure 127/65 115/58 L 118/71 Blood Pressure [Orthostatic Lying] Blood Pressure [Orthostatic Sitting] Blood Pressure [Orthostatic Standing] Pulse Oximetry 97 98 96 03/25/21 01:00 03/25/21 01:30 03/25/21 02:10 Temperature Pulse Rate 102 H 94 H Pulse Rate [Orthostatic Lying] 95 H Pulse Rate [Orthostatic Sitting] 96 H Pulse Rate [Orthostatic Standing] 99 H Respiratory Rate Blood Pressure 112/58 L 110/56 L Blood Pressure [Orthostatic Lying] 108/66 Blood Pressure [Orthostatic Sitting] 131/75 Blood Pressure [Orthostatic Standing] 112/59 L Pulse Oximetry 95 96 MDM - Abdominal Pain Lab Data Result diagrams: 03/24/21 19:57 03/24/21 19:57 Labs: Lab Results 03/24/21 03/24/21 03/25/21 Range/Units 19:57 19:57 02:42 WBC 11.5 H (4.5-11.0) X10^3/uL RBC 4.97 (4.0-5.2) X10^6/uL Hgb 14.6 (12.0-16.0) g/dL Hct 43.8 (36-46) % MCV 88.3 (80-100) fL MCH 29.4 (26-34) PG MCHC 33.2 (30-36) % RDW 13.9 (11.6-14.8) % Plt Count 272 (150-400) X10^3/uL Neut % (Auto) 56.1 (50-75) % Lymph % (Auto) 36.0 (25-40) % [place] % (Auto) 4.1 (3-14) % Eos % (Auto) 2.4 (2-4) % Baso % (Auto) 1.4 (0-2) % Neut # (Auto) 6400 (6658-4561) /uL Lymph # (Auto) 4100 (3513-0821) /uL [place] # (Auto) 500 (0-900) /uL Eos # (Auto) 300 (0-450) /uL Baso # (Auto) 200 H (0-100) /uL Sodium 138 (137-145) mmol/L Potassium 4.1 (3.4-5.1) mmol/L Chloride 100 (98-107) mmol/L Carbon Dioxide 27 (22-32) mmol/L BUN 7 (7-17) mg/dL Creatinine 0.82 (0.52-1.04) mg/dL Estimated GFR > 60.0 (>60) mL/min BUN/Creatinine Ratio 8.5 (6-22) Glucose 165 H (70-100) mg/dL Calcium 9.5 (8.4-10.2) mg/dL Total Bilirubin 0.4 (0.2-1.3) mg/dL AST 26 (14-36) IU/L ALT 21 (<35) IU/L Alkaline Phosphatase 78 (38-126) U/L Total Protein 7.8 (6.3-8.2) g/dL Albumin 4.2 (3.5-5.0) g/dL Globulin 3.6 (1.7-4.1) g/dL Albumin/Globulin Ratio 1.2 (1.0-2.8) Lipase 107 (23-300) U/L Urine RBC 0-1/hpf (0-5/HPF) Urine WBC 0-1/hpf (0-5/HPF) Ur Squamous Epith Cells 10-30 /hpf H (0-5/HPF) Urine Bacteria Many (>30) H (None) Ur Culture Indicated? Cult not indicated Point of care testing: Point of Care Testing Test Results Negative Urine Dip Bedside Urine Glucose Negative Bedside Urine Bilirubin - Negative Bedside Urine Ketone - Negative Bedside Urine Occult Blood - Negative Bedside Urine Protein +/- 15 Bedside Urine Urobilinogen - Negative Bedside Urine Nitrite - Negative Bedside Urine Leukocytes - Negative Esterase Imaging Data Abdominal x-ray: Radiologist's Impression: IMPRESSION:? Nonspecific bowel gas pattern without definite evidence of obstruction.? If patient's symptoms persist or worsen, consider CT scan of the abdomen pelvis for additional evaluation. ? ? ? Dictated by: Fe Light MD, PhD on 03/24/2021 at 20:37 ? ? Approved by: Fe Light MD, PhD on 03/24/2021 at 20:39 ? MDM Narrative Medical decision making narrative: Blood work overall appears stable. Minimal leukocytosis electrolytes within normal limits she has had pain ongoing for 6 weeks and overall. With possible ulcer his she has pain a few hours after eating. She has appointment with GI and her PCP next week. However wanted answers today. The patient is already taking Dexilant for ulcer. He is in quite a bit of 10 pain. She was given GI cocktail and water she says it has not helped. Orthostatic vitals are negative. Discharge Plan Departure Patient Disposition: Home Clinical Impression: Peptic ulcer associated with Helicobacter pylori infection Instructions: DI for Peptic Ulcer Activity Restrictions/Additional Instructions: *You have been diagnosed with probable ulcer *What to do: At this time is very importantly follow up with her GI doctor. Will give you some pain medicine. Will add some anti acid medicine as well. *Continue to take medications as directed Carafate 1 g 4 times a day [place] 1 tablet every 6 hours only if needed for severe pain *Follow up with your primary care provider in 2-3 days Follow-up with GI as scheduled *Return to ER if you should have increasing pain, black stools, worsening dizziness or fever or any new, worsening or concerning symptoms CONTROLLED SUBSTANCE DISCHARGE (Narcotoic/benzodiazepine/Flexeril/Phenergan) 1. You have been prescribed narcotic medications, it does have acetaminophen/Tylenol/paracetamol in it, DO NOT TAKE MORE THAN 4,00mg in 24 hours of Tylenol. TRAMADOL DOES NOT CONTAIN TYLENOL 2. Please understand that we cannot provide further refills of narcotics, benzodiazepines or controlled substances through the ED and her pain management will need to be through your provider. 3. While on these medications you cannot drive or operate heavy machinery. 4. You cannot sign legal documents or perform any duties such as this. 5. As long as you're taking opiate pain medications he should also be taking a stool softener such as Colace, Dulcolax, MiraLAX or prune juice, to help avoid constipation. Prescriptions: New sucralfate [Carafate] 100 mg/mL suspension 10 ml PO QID Qty: 420 0RF Rx Instructions: swish in mouth and swallow; use after food/drink hydrocodone-acetaminophen 5-325 mg tablet 1 tab PO Q6H PRN (Reason: pain) Qty: 10 0RF No Action fluconazole 150 mg tablet 150 mg PO ONCE Qty: 2 0RF Rx Instructions: Repeat in 72 hours if still symptomatic propranolol 80 MG capsule,extended release 24 hr 80 mg PO QDAY Qty: 0 0RF prazosin [Minipress] 1 MG capsule 1 mg PO BID Qty: 0 0RF bupropion HCl 75 MG tablet 75 mg PO BID Qty: 0 0RF albuterol sulfate [Ventolin HFA] 90 MCG/PUFF HFA aerosol inhaler 2 puff INH BIDP PRNQty: 0 0RF clonazepam 1 MG tablet 1 mg PO TID Qty: 0 0RF fluticasone propionate [Flonase Allergy Relief] 9.9 ML spray,suspension 1 spray Intranasal BID Qty: 0 0RF [id number] [Triumeq] 1 EACH tablet 1 tab PO QDAY Qty: 0 0RF dexlansoprazole [Dexilant] 60 MG capsule,biphase delayed releas 60 mg PO QDAY Qty: 0 0RF amitriptyline 50 MG tablet 50 mg PO HS Qty: 0 0RF cetirizine 10 MG tablet 10 mg PO QDAY Qty: 0 0RF glimepiride [Amaryl] 4 MG tablet 4 mg PO BID Qty: 0 0RF losartan 25 MG tablet 25 mg PO QDAY Qty: 0 0RF metformin [Fortamet] 1,000 MG tablet extended release 24hr 1,000 mg PO BEDTIME Qty: 0 0RF tiotropium bromide [Spiriva with HandiHaler] 18 MCG capsule, w/inhalation device 1 puff INH QDAY Qty: 0 0RF atorvastatin [Lipitor] 80 MG tablet 80 mg PO QDAY Qty: 0 0RF gabapentin 800 MG tablet 800 mg PO TID Qty: 90 1RF meperidine [Demerol] 100 MG tablet 100 mg PO Q4P Qty: 60 0RF progesterone micronized [Prometrium] 100 mg capsule 100 mg PO QDAY Qty: 60 0RF Rx Instructions: Please schedule appointment for refills. Estring 2 mg (7.5 mcg /24 hour) ring 1 vaginalrin VAG [id number] Qty: 1 4RF estradiol 1 mg tablet See Rx Instructions .ROUTE .COMPLEX Qty: 90 3RF Dose Instruction: TAKE 1 TABLET BY MOUTH EVERY DAY Rx Instructions: TAKE 1 TABLET BY MOUTH EVERY DAY oxycodone 5 mg tablet 5 mg PO Q6H PRN (Reason: pain) Qty: 10 0RF clindamycin HCl 300 mg capsule 300 mg PO TID Qty: 21 0RF metformin 500 mg Tablet 500 mg PO DAILY 0RF Rx Instructions: take in the morning Lantus Solostar U-100 Insulin 100 unit/mL (3 mL) insulin pen 25 unit SUBCUT QPM Qty: 15 0RF doxycycline hyclate 100 mg tablet 100 mg PO BID Qty: 20 0RF
[2021-03-25] MEDS: MAG HYDROX/ALUMINUM/SIMETH SUS 20 ML, LIDOCAINE VISCOUS 2% 15 ML PO (01:59)
[2021-03-25 02:52] LABS: RBC Urine 0-1/HPF (0-5/HPF); Squamous Epithelial Cell Urine 10-30 /HPF (0-5/HPF); WBC Urine 0-1/HPF (0-5/HPF)
[2021-03-25 02:53] LABS: Bacteria Urine Many (>30); Culture Indicated Urine Cult Not Indicated
[2021-03-25] MEDS: MORPHINE 4 MG/ML INJ SUBCUT (03:26)
== END 2021-03-25 03:42 | disposition home or self-care (01) ==
PROVIDERS: Emergency Provider Emergency Medicine
DX: K27.9 Peptic ulcer, site unspecified, unspecified as acute or chronic, without hemorrhage or perforation (principal); B96.81 Helicobacter pylori [H. pylori] as the cause of diseases classified elsewhere; R11.0 Nausea
CPT/HCPCS: 36415; 74022; 80053; 81003; 81015; 81025; 83690; 85025; 96372; 99284; J2270

== ENCOUNTER 2021-03-26 15:28 | Emergency (ER) | payer MEDICARE, OTHER, SELFPAY ==
[2021-03-26] VITALS (13 sets, daily range): BP systolic 102–140; BP diastolic 57–79; PULSE 97–133; RESP 16–23; TEMP 36.2; O2SAT 94–99; BMI 28.0
--- NOTE | 2021-03-26 15:54 | DI.RAD.S_ITS ---
PROCEDURE: XR CHEST 1V INDICATIONS: chest pain TECHNIQUE: One view of the chest was acquired. COMPARISON: [facility], CT, CT ANGIO CHEST ABDOMEN PELVIS, 07/08/2020, 22:22. [facility], CR, XR CHEST 1V, 07/08/2020, 20:49. [facility], CR, XR CHEST 2V, 12/11/2020, 15:24. FINDINGS: Surgical changes and devices: None. Lungs and pleura: Lungs are clear. No pleural effusions or pneumothorax. Mediastinum: Mediastinal contours appear normal. Heart size is normal. Bones and chest wall: No suspicious bony lesions. Overlying soft tissues appear unremarkable. IMPRESSION: Portable chest within normal limits. Dictated by: Alex Love M.D. on 03/26/2021 at 15:23 Approved by: Alex Love M.D. on 03/26/2021 at 15:24
[2021-03-26] MEDS: SODIUM CHLORIDE 0.9% 1,000 ML 1000 ML IV ×2 (15:59→19:04)
[2021-03-26 16:08] LABS: Add Manual Diff / Slide Review NO; Basophils Absolute Auto 100 /uL (0-100); Basophils Percent Auto 1.1 % (0-2); Eosinophils Absolute Auto 200 /uL (0-450); Eosinophils Percent Auto 1.7 % (2-4); Hematocrit 41.6 % (36-46); Hemoglobin 14.1 g/dL (12.0-16.0); Lymphocytes Absolute Auto 3100 /uL (1100-4500); Lymphocytes Percent Auto 30.5 % (25-40); Mean Corpuscular HGB Conc 33.9 % (30-36); Mean Corpuscular Hemoglobin 29.9 PG (26-34); Mean Corpuscular Volume 88.2 fL (80-100); Monocytes Absolute Auto 400 /uL (0-900); Monocytes Percent Auto 4.1 % (3-14); Neutrophils Absolute Auto 6300 /uL (1500-7000); Neutrophils Percent Auto 62.6 % (50-75); Platelet Count 233 X10^3/uL (150-400); Red Blood Cell Count 4.71 X10^6/uL (4.0-5.2); Red Cell Distribution Width 14.1 % (11.6-14.8); White Blood Cell Count 10.1 X10^3/uL (4.5-11.0)
[2021-03-26 16:22] LABS: Albumin 4.1 g/dL (3.5-5.0); Albumin Globulin Ratio 1.3 (1.0-2.8); Alkaline Phosphatase 83 U/L (38-126); Aspartate Aminotransferase 23 IU/L (14-36); BUN Creatinine Ratio 10.9 (6-22); Bilirubin Total 0.4 mg/dL (0.2-1.3); Blood Urea Nitrogen 10 mg/dL (7-17); Calcium 8.9 mg/dL (8.4-10.2); Carbon Dioxide 22 mmol/L (22-32); Chloride 101 mmol/L (98-107); Creatine Kinase 27 U/L (30-135); Estimated Glomerular Filt Rate > 60.0 mL/min (>60); Globulin 3.2 g/dL (1.7-4.1); Glucose 185 mg/dL (70-100); HEMOLYSIS < 15 (0-50); Lipase 132 U/L (23-300); Sodium 136 mmol/L (137-145); Total Protein 7.3 g/dL (6.3-8.2)
[2021-03-26 16:28] LABS: Alanine Aminotransferase 22 IU/L (<35)
[2021-03-26 16:33] LABS: Troponin I < 0.012 ng/mL (0.01-0.034)
[2021-03-26 16:51] LABS: D Dimer 218 ng/mL (<230)
[2021-03-26 17:00] LABS: NT-proBNP (BNP-Adult 18+) 39 pg/mL (<125)
--- NOTE | 2021-03-26 17:21 | ED_ITS ---
HPI - Chest Pain General Chief Complaint: Chest Pain Stated Complaint: Low b/p/hypertension/dizzy today Time Seen by Provider: 03/26/21 16:31 Related Data Home Medications Medication Instructions Recorded Confirmed prazosin 1 mg capsule (Minipress) 1 mg PO BID #0 03/10/16 07/03/20 propranolol 80 mg capsule,24 80 mg PO QDAY #0 03/10/16 07/03/20 hr,extended release albuterol sulfate 90 mcg/actuation 2 puff INH BIDP PRN #0 09/03/16 07/03/20 aerosol inhaler (Ventolin HFA) bupropion HCl 75 mg tablet 75 mg PO BID #0 09/03/16 07/03/20 clonazepam 1 mg tablet 1 mg PO TID #0 09/03/16 07/03/20 fluticasone propionate 50 1 spray INTRANASAL BID #0 09/03/16 07/03/20 mcg/actuation nasal spray,suspension (Flonase Allergy Relief) abacavir 600 mg-dolutegravir 50 1 tab PO QDAY #0 11/24/16 07/03/20 mg-lamivudine 300 mg tablet (Triumeq) amitriptyline 50 mg tablet 50 mg PO HS #0 11/24/16 07/03/20 cetirizine 10 mg tablet 10 mg PO QDAY #0 11/24/16 07/03/20 dexlansoprazole 60 mg 60 mg PO QDAY #0 11/24/16 07/03/20 capsule,biphase delayed release (Dexilant) glimepiride 4 mg tablet (Amaryl) 4 mg PO BID #0 11/24/16 07/03/20 losartan 25 mg tablet 25 mg PO QDAY #0 11/24/16 07/03/20 metformin 1,000 mg tablet,extended 1,000 mg PO BEDTIME #0 11/24/16 07/03/20 release 24hr (Fortamet) tiotropium bromide 18 mcg capsule 1 puff INH QDAY #0 11/24/16 07/03/20 with inhalation device (Spiriva with HandiHaler) atorvastatin 80 mg tablet (Lipitor) 80 mg PO QDAY #0 12/16/16 07/03/20 metformin 500 mg tablet 500 mg PO DAILY 05/01/20 07/03/20 Previous Rx's Medication Instructions Recorded gabapentin 800 mg tablet 800 mg PO TID #90 12/27/16 meperidine 100 mg tablet (Demerol) 100 mg PO Q4P #60 tab 12/27/16 progesterone micronized 100 mg 100 mg PO QDAY #60 cap 08/16/19 capsule (Prometrium) estradiol (Estring) 1 vaginalrin VAG [id number] #1 each 02/15/20 insulin glargine 100 unit/mL (3 25 unit (0.25 mL) SUBCUT QPM #15 ml 05/10/20 mL) subcutaneous pen (Lantus Solostar U-100 Insulin) fluconazole 150 mg tablet 150 mg PO ONCE #2 tab 05/18/20 clindamycin HCl 300 mg capsule 300 mg PO TID #21 cap 06/07/20 oxycodone 5 mg tablet 5 mg PO Q6H PRN #10 tab 06/07/20 doxycycline hyclate 100 mg tablet 100 mg PO BID #20 tab 07/08/20 estradiol 1 mg tablet See Rx Instructions .ROUTE 11/26/20 .COMPLEX #90 tab hydrocodone 5 mg-acetaminophen 325 1 tab PO Q6H PRN #10 tab 03/25/21 mg tablet sucralfate 100 mg/mL oral 10 ml PO QID #420 ml 03/25/21 suspension (Carafate) Allergies Allergy/AdvReac Type Severity Reaction Status Date / Time levofloxacin [LEVOFLOXACIN] Allergy Severe hives Verified 12/11/20 19:12 Sulfa (Sulfonamide Allergy Severe rash Verified 12/11/20 19:12 Antibiotics) [SULFA (SULFONAMIDE ANTIBIOTICS)] amoxicillin [From AUGMENTIN] Allergy Mild rash Verified 12/11/20 19:12 ciprofloxacin [From CIPRO] Allergy Mild rash Verified 12/11/20 19:12 clarithromycin [From BIAXIN] Allergy Mild rash Verified 12/11/20 19:12 clavulanic acid Allergy Mild rash Verified 12/11/20 19:12 [From AUGMENTIN] morphine [MORPHINE] AdvReac Mild n/v Verified 12/11/20 19:12 pregabalin [PREGABALIN] AdvReac Mild lost voice Verified 12/11/20 19:12 Patient History Medical History Anxiety Arthritis Bipolar disorder Depression Diabetes mellitus Fibroids GERD (gastroesophageal reflux disease) History of gastrointestinal symptoms HIV (human immunodeficiency virus infection) Hypertension PTSD (post-traumatic stress disorder) Surgical History History of cystoscopy (2013) History of stress incontinence procedure using tension free vaginal tape (2013) S/P functional endoscopic sinus surgery (2002) Status post arthroscopy (2003) Status post cholecystectomy (2011) Status post laparoscopic supracervical hysterectomy (2011) Family History Father Congestive heart failure Social History Smoking Status: Current every day smoker Smoking Status: Current every day smoker alcohol intake frequency: holidays/special occasions only Substance Use Type: marijuana Exam Initial Vital Signs Initial Vital Signs: Vital Signs Temperature 97.2 F L 03/26/21 15:49 Pulse Rate 133 H 03/26/21 15:49 Respiratory Rate 18 03/26/21 15:49 Blood Pressure 140/79 03/26/21 15:49 Pulse Oximetry 99 03/26/21 15:49 Course Orders Ordered: ED Orders 03/26/21 15:50 BNP [NT-proBNP (BNP-Adult 18+)] Stat Complete Blood Count AUTO DIFF Stat Comprehensive Metabolic Panel Stat D Dimer Stat Lipase Stat Troponin & CK Cardiac Panel Stat 03/26/21 15:54 XR chest 1V Stat 03/26/21 17:20 COVID19 -Nasal swab/Pre-Proc Stat Discontinued Medications Allopurinol (Allopurinol 300 Mg Tablet) 300 mg PO DAILY MILY Atorvastatin Calcium (Atorvastatin 20 Mg Tablet) 10 mg PO BEDTIME MILY Hydrochlorothiazide (Hydrochlorothiazide 25 Mg Tablet) 25 mg PO DAILY MILY Sodium Chloride (Normal Saline 0.9%) 1,000 mls @ 1,000 mls/hr IV BOLUS ONE Stop: 03/26/21 16:57 Last Infusion: 03/26/21 17:13 Dose: 0 mls/hr Documented by: Admin: 03/26/21 15:59 Dose: 1,000 mls/hr Documented by: SIA Nifedipine (Nifedipine 30 Mg Tab Er) 60 mg PO DAILY MILY Tamsulosin HCl (Tamsulosin 0.4 Mg Capsule) 0.4 mg PO NOW ONE Stop: 03/26/21 16:49 Last Admin: 03/26/21 16:52 Dose: Not Given Documented by: KBRYERS Tamsulosin HCl (Tamsulosin 0.4 Mg Capsule) 0.4 mg PO DAILY MILY Vital Signs Vital signs: Vital Signs - 8 hr 03/26/21 15:49 03/26/21 16:00 03/26/21 16:15 Temperature 97.2 F L Pulse Rate 133 H 122 H 120 H Pulse Rate [Orthostatic Lying] Pulse Rate [Orthostatic Sitting] Pulse Rate [Orthostatic Standing] Respiratory Rate 18 Blood Pressure 140/79 106/61 106/66 Blood Pressure [Orthostatic Lying] Blood Pressure [Orthostatic Sitting] Blood Pressure [Orthostatic Standing] Pulse Oximetry 99 03/26/21 16:24 03/26/21 16:33 03/26/21 17:00 Temperature Pulse Rate 110 H 104 H Pulse Rate [Orthostatic Lying] 128 H Pulse Rate [Orthostatic Sitting] 118 H Pulse Rate [Orthostatic Standing] 115 H Respiratory Rate 20 20 Blood Pressure 110/66 Blood Pressure [Orthostatic Lying] 102/57 L Blood Pressure [Orthostatic Sitting] 114/65 Blood Pressure [Orthostatic Standing] 111/61 Pulse Oximetry 94 94 MDM - Chest Pain Lab Data Result diagrams: 03/26/21 15:50 03/26/21 15:50 Labs: Lab Results 03/26/21 03/26/21 03/26/21 Range/Units 15:50 15:50 15:50 WBC 10.1 (4.5-11.0) X10^3/uL RBC 4.71 (4.0-5.2) X10^6/uL Hgb 14.1 (12.0-16.0) g/dL Hct 41.6 (36-46) % MCV 88.2 (80-100) fL MCH 29.9 (26-34) PG MCHC 33.9 (30-36) % RDW 14.1 (11.6-14.8) % Plt Count 233 (150-400) X10^3/uL Neut % (Auto) 62.6 (50-75) % Lymph % (Auto) 30.5 (25-40) % [place] % (Auto) 4.1 (3-14) % Eos % (Auto) 1.7 L (2-4) % Baso % (Auto) 1.1 (0-2) % Neut # (Auto) 6300 (8298-8125) /uL Lymph # (Auto) 3100 (6819-6854) /uL [place] # (Auto) 400 (0-900) /uL Eos # (Auto) 200 (0-450) /uL Baso # (Auto) 100 (0-100) /uL D-Dimer 218 (<230) ng/mL Sodium 136 L (137-145) mmol/L Potassium 4.0 (3.4-5.1) mmol/L Chloride 101 (98-107) mmol/L Carbon Dioxide 22 (22-32) mmol/L BUN 10 (7-17) mg/dL Creatinine 0.92 (0.52-1.04) mg/dL Estimated GFR > 60.0 (>60) mL/min BUN/Creatinine Ratio 10.9 (6-22) Glucose 185 H (70-100) mg/dL Calcium 8.9 (8.4-10.2) mg/dL Total Bilirubin 0.4 (0.2-1.3) mg/dL AST 23 (14-36) IU/L ALT 22 (<35) IU/L Alkaline Phosphatase 83 (38-126) U/L Total Creatine Kinase 27 L (30-135) U/L CK-MB (CK-2) TNP CK-MB (CK-2) Rel Index TNP Troponin I < 0.012 (0.01-0.034) ng/mL NT-Pro-B Natriuret Pep (<125) pg/mL Total Protein 7.3 (6.3-8.2) g/dL Albumin 4.1 (3.5-5.0) g/dL Globulin 3.2 (1.7-4.1) g/dL Albumin/Globulin Ratio 1.3 (1.0-2.8) Lipase 132 (23-300) U/L 03/26/21 Range/Units 15:50 WBC (4.5-11.0) X10^3/uL RBC (4.0-5.2) X10^6/uL Hgb (12.0-16.0) g/dL Hct (36-46) % MCV (80-100) fL MCH (26-34) PG MCHC (30-36) % RDW (11.6-14.8) % Plt Count (150-400) X10^3/uL Neut % (Auto) (50-75) % Lymph % (Auto) (25-40) % [place] % (Auto) (3-14) % Eos % (Auto) (2-4) % Baso % (Auto) (0-2) % Neut # (Auto) (8523-9817) /uL Lymph # (Auto) (1288-7971) /uL [place] # (Auto) (0-900) /uL Eos # (Auto) (0-450) /uL Baso # (Auto) (0-100) /uL D-Dimer (<230) ng/mL Sodium (137-145) mmol/L Potassium (3.4-5.1) mmol/L Chloride (98-107) mmol/L Carbon Dioxide (22-32) mmol/L BUN (7-17) mg/dL Creatinine (0.52-1.04) mg/dL Estimated GFR (>60) mL/min BUN/Creatinine Ratio (6-22) Glucose (70-100) mg/dL Calcium (8.4-10.2) mg/dL Total Bilirubin (0.2-1.3) mg/dL AST (14-36) IU/L ALT (<35) IU/L Alkaline Phosphatase (38-126) U/L Total Creatine Kinase (30-135) U/L CK-MB (CK-2) CK-MB (CK-2) Rel Index Troponin I (0.01-0.034) ng/mL NT-Pro-B Natriuret Pep 39 (<125) pg/mL Total Protein (6.3-8.2) g/dL Albumin (3.5-5.0) g/dL Globulin (1.7-4.1) g/dL Albumin/Globulin Ratio (1.0-2.8) Lipase (23-300) U/L Imaging Data Chest x-ray: Radiologist's Impression: [address] [address] XRay Report Signed Patient: Shelbie Purdy MR#: [id number] : 1970 Acct:[id number] Age/Sex: 50 / F Date of Service: 03/26/21 Loc: ED Accession Number: [id number] ?? Procedure: XR chest 1V Ordering Provider: Stephenie Basilio D.O. PROCEDURE:? XR CHEST 1V ? INDICATIONS:? chest pain ? TECHNIQUE:? One view of the chest was acquired.? ? COMPARISON:? [facility], CT, CT ANGIO CHEST ABDOMEN PELVIS, 07/08/2020, 22:22.? [facility], CR, XR CHEST 1V, 07/08/2020, 20:49.? [facility], CR, XR CHEST 2V, 12/11/2020, 15:24. ? FINDINGS:? ? Surgical changes and devices:? None.? ? Lungs and pleura:? Lungs are clear.? No pleural effusions or pneumothorax.? ? Mediastinum:? Mediastinal contours appear normal.? Heart size is normal.? ? Bones and chest wall:? No suspicious bony lesions.? Overlying soft tissues appear unremarkable.? ? IMPRESSION:? ? Portable chest within normal limits. ? ? ? Dictated by: Alex Love M.D. on 03/26/2021 at 15:23 ? ? Approved by: Alex Love M.D. on 03/26/2021 at 15:24?? Discharge Plan Departure Prescriptions: No Action fluconazole 150 mg tablet 150 mg PO ONCE Qty: 2 0RF Rx Instructions: Repeat in 72 hours if still symptomatic propranolol 80 MG capsule,extended release 24 hr 80 mg PO QDAY Qty: 0 0RF prazosin [Minipress] 1 MG capsule 1 mg PO BID Qty: 0 0RF bupropion HCl 75 MG tablet 75 mg PO BID Qty: 0 0RF albuterol sulfate [Ventolin HFA] 90 MCG/PUFF HFA aerosol inhaler 2 puff INH BIDP PRNQty: 0 0RF clonazepam 1 MG tablet 1 mg PO TID Qty: 0 0RF fluticasone propionate [Flonase Allergy Relief] 9.9 ML spray,suspension 1 spray Intranasal BID Qty: 0 0RF [id number] [Triumeq] 1 EACH tablet 1 tab PO QDAY Qty: 0 0RF dexlansoprazole [Dexilant] 60 MG capsule,biphase delayed releas 60 mg PO QDAY Qty: 0 0RF amitriptyline 50 MG tablet 50 mg PO HS Qty: 0 0RF cetirizine 10 MG tablet 10 mg PO QDAY Qty: 0 0RF glimepiride [Amaryl] 4 MG tablet 4 mg PO BID Qty: 0 0RF losartan 25 MG tablet 25 mg PO QDAY Qty: 0 0RF metformin [Fortamet] 1,000 MG tablet extended release 24hr 1,000 mg PO BEDTIME Qty: 0 0RF tiotropium bromide [Spiriva with HandiHaler] 18 MCG capsule, w/inhalation bahman ce 1 puff INH QDAY Qty: 0 0RF atorvastatin [Lipitor] 80 MG tablet 80 mg PO QDAY Qty: 0 0RF gabapentin 800 MG tablet 800 mg PO TID Qty: 90 1RF meperidine [Demerol] 100 MG tablet 100 mg PO Q4P Qty: 60 0RF progesterone micronized [Prometrium] 100 mg capsule 100 mg PO QDAY Qty: 60 0RF Rx Instructions: Please schedule appointment for refills. Estring 2 mg (7.5 mcg /24 hour) ring 1 vaginalrin VAG [id number] Qty: 1 4RF estradiol 1 mg tablet See Rx Instructions .ROUTE .COMPLEX Qty: 90 3RF Dose Instruction: TAKE 1 TABLET BY MOUTH EVERY DAY Rx Instructions: TAKE 1 TABLET BY MOUTH EVERY DAY oxycodone 5 mg tablet 5 mg PO Q6H PRN (Reason: pain) Qty: 10 0RF clindamycin HCl 300 mg capsule 300 mg PO TID Qty: 21 0RF sucralfate [Carafate] 100 mg/mL suspension 10 ml PO QID Qty: 420 0RF Rx Instructions: swish in mouth and swallow; use after food/drink hydrocodone-acetaminophen 5-325 mg tablet 1 tab PO Q6H PRN (Reason: pain) Qty: 10 0RF metformin 500 mg Tablet 500 mg PO DAILY 0RF Rx Instructions: take in the morning Lantus Solostar U-100 Insulin 100 unit/mL (3 mL) insulin pen 25 unit SUBCUT QPM Qty: 15 0RF doxycycline hyclate 100 mg tablet 100 mg PO BID Qty: 20 0RF
[2021-03-26 18:13] LABS: COVID19 -Nasal RAPID POSITIVE (Negative)
[2021-03-26] MEDS: ONDANSETRON 4 MG/2 ML INJ IV (19:18)
== END 2021-03-26 20:21 | disposition home or self-care (01) ==
PROVIDERS: Emergency Medicine; Emergency Provider Emergency Medicine
DX: U07.1 COVID-19 (principal); R07.9 Chest pain, unspecified; E86.0 Dehydration
CPT/HCPCS: 36415; 71045; 80053; 81003; 81025; 82550; 83690; 83880; 84484; 85025; 85379; 87635; 93005; 99284; C9803; J2405

== ENCOUNTER → 2021-05-01 12:43 | Outpatient (CLI) | payer MEDICARE, OTHER, SELFPAY ==
[2021-05-01 13:28] LABS: COVID19 -Nasal RAPID Negative (Negative)
== END ==
PROVIDERS: Referring Provider Nurse Practitioner Family; Visit Provider Nurse Practitioner Family
DX: Z20.822 Contact with and (suspected) exposure to COVID-19 (principal); N89.8 Other specified noninflammatory disorders of vagina
CPT/HCPCS: 87210; 87635

== ENCOUNTER → 2021-05-12 13:39 | Outpatient (CLI) | payer MEDICARE, OTHER, SELFPAY ==
[2021-05-12 16:38] LABS: Hemoglobin A1C% w Est Avg Glu 7.1 % (4.0-6.0)
[2021-05-12 16:46] LABS: Add Manual Diff / Slide Review NO; BUN Creatinine Ratio 7.1 (6-22); Basophils Absolute Auto 0 /uL (0-100); Basophils Percent Auto 0.5 % (0-2); Blood Urea Nitrogen 5 mg/dL (7-17); Calcium 9.6 mg/dL (8.4-10.2); Carbon Dioxide 29 mmol/L (22-32); Chloride 102 mmol/L (98-107); Eosinophils Absolute Auto 200 /uL (0-450); Eosinophils Percent Auto 2.1 % (2-4); Estimated Glomerular Filt Rate > 60.0 mL/min (>60); Glucose 210 mg/dL (70-100); HEMOLYSIS < 15 (0-50); Hematocrit 41.5 % (36-46); Hemoglobin 13.9 g/dL (12.0-16.0); Lymphocytes Absolute Auto 2600 /uL (1100-4500); Lymphocytes Percent Auto 28.3 % (25-40); Mean Corpuscular HGB Conc 33.4 % (30-36); Mean Corpuscular Hemoglobin 29.8 PG (26-34); Mean Corpuscular Volume 89.2 fL (80-100); Monocytes Absolute Auto 300 /uL (0-900); Monocytes Percent Auto 3.6 % (3-14); Neutrophils Absolute Auto 6100 /uL (1500-7000); Neutrophils Percent Auto 65.5 % (50-75); Platelet Count 260 X10^3/uL (150-400); Potassium 4.3 mmol/L (3.4-5.1); Red Blood Cell Count 4.65 X10^6/uL (4.0-5.2); Red Cell Distribution Width 13.8 % (11.6-14.8); Sodium 139 mmol/L (137-145); White Blood Cell Count 9.3 X10^3/uL (4.5-11.0)
== END ==
PROVIDERS: Referring Provider Physician Assistant; Visit Provider Physician Assistant
DX: R78.9 Finding of unspecified substance, not normally found in blood (principal); M17.12 Unilateral primary osteoarthritis, left knee
CPT/HCPCS: 36415; 80048; 83036; 85025

== ENCOUNTER 2021-06-25 16:40 | Emergency (ER) | payer MEDICARE, OTHER, SELFPAY ==
[2021-06-25 16:43] VITALS: BP 142/64; PULSE 89; RESP 18; TEMP 37; O2SAT 97
[2021-06-25 17:23] LABS: Alanine Aminotransferase 20 IU/L (<35); Albumin 4.4 g/dL (3.5-5.0); Albumin Globulin Ratio 1.2 (1.0-2.8); Alkaline Phosphatase 81 U/L (38-126); Aspartate Aminotransferase 27 IU/L (14-36); BUN Creatinine Ratio 13.3 (6-22); Bilirubin Total 0.5 mg/dL (0.2-1.3); Blood Urea Nitrogen 10 mg/dL (7-17); Calcium 9.7 mg/dL (8.4-10.2); Carbon Dioxide 35 mmol/L (22-32); Chloride 100 mmol/L (98-107); Estimated Glomerular Filt Rate > 60.0 mL/min (>60); Globulin 3.7 g/dL (1.7-4.1); Glucose 188 mg/dL (70-100); HEMOLYSIS < 15 (0-50); Lipase 132 U/L (23-300); Potassium 4.2 mmol/L (3.4-5.1); Sodium 138 mmol/L (137-145); Total Protein 8.1 g/dL (6.3-8.2)
[2021-06-25 17:47] LABS: Add Manual Diff / Slide Review NO; Basophils Absolute Auto 100 /uL (0-100); Basophils Percent Auto 0.6 % (0-2); Eosinophils Absolute Auto 200 /uL (0-450); Hematocrit 43.7 % (36-46); Hemoglobin 14.7 g/dL (12.0-16.0); Lymphocytes Absolute Auto 2900 /uL (1100-4500); Lymphocytes Percent Auto 28.7 % (25-40); Mean Corpuscular HGB Conc 33.6 % (30-36); Mean Corpuscular Hemoglobin 29.8 PG (26-34); Mean Corpuscular Volume 88.6 fL (80-100); Monocytes Absolute Auto 400 /uL (0-900); Monocytes Percent Auto 4.3 % (3-14); Neutrophils Absolute Auto 6600 /uL (1500-7000); Neutrophils Percent Auto 64.4 % (50-75); Platelet Count 270 X10^3/uL (150-400); Red Blood Cell Count 4.93 X10^6/uL (4.0-5.2); Red Cell Distribution Width 13.9 % (11.6-14.8); White Blood Cell Count 10.3 X10^3/uL (4.5-11.0)
[2021-06-25 17:58] LABS: COVID19 -Nasal RAPID Negative (Negative)
--- NOTE | 2021-06-25 19:52 | ED.GENADULT ---
HPI - General Adult General Chief complaint: Abdominal Pain Stated complaint: abd pain, sinus infection Time Seen by Provider: 06/25/21 19:04 Source: patient Mode of arrival: Ambulatory History of Present Illness HPI narrative: Patient here with . Complains of ongoing dizziness sinus pressure nasal drainage nausea for the past 4 months. Scheduled to see ENT here locally with [facility] for this problem later this month. Patient had sinus surgery in 2002. No procedures since then. She states it feels about the same. Also complains of nausea ongoing for months. Has history of diabetic gastroparesis. Patient primary care Dr. Gallegos, with [facility]. Had EGD and colonoscopy for this as well. Is on Reglan 3 times a day. This is not new. Is not on any Flonase or any steroid or antihistamines recently. Has had them in the past. Related Data Home Medications Medication Instructions Recorded Confirmed prazosin 1 mg capsule (Minipress) 1 mg PO BID #0 03/10/16 05/01/21 propranolol 80 mg capsule,24 80 mg PO QDAY #0 03/10/16 05/01/21 hr,extended release albuterol sulfate 90 mcg/actuation 2 puff INH BIDP PRN #0 09/03/16 05/01/21 aerosol inhaler (Ventolin HFA) bupropion HCl 75 mg tablet 75 mg PO BID #0 09/03/16 05/01/21 clonazepam 1 mg tablet 1 mg PO TID #0 09/03/16 05/01/21 fluticasone propionate 50 1 spray INTRANASAL BID #0 09/03/16 05/01/21 mcg/actuation nasal spray,suspension (Flonase Allergy Relief) abacavir 600 mg-dolutegravir 50 1 tab PO QDAY #0 11/24/16 05/01/21 mg-lamivudine 300 mg tablet (Triumeq) amitriptyline 50 mg tablet 50 mg PO HS #0 11/24/16 05/01/21 cetirizine 10 mg tablet 10 mg PO QDAY #0 11/24/16 05/01/21 dexlansoprazole 60 mg 60 mg PO QDAY #0 11/24/16 05/01/21 capsule,biphase delayed release (Dexilant) glimepiride 4 mg tablet (Amaryl) 4 mg PO BID #0 11/24/16 05/01/21 losartan 25 mg tablet 25 mg PO QDAY #0 11/24/16 05/01/21 metformin 1,000 mg tablet,extended 1,000 mg PO BEDTIME #0 11/24/16 05/01/21 release 24hr (Fortamet) tiotropium bromide 18 mcg capsule 1 puff INH QDAY #0 11/24/16 05/01/21 with inhalation device (Spiriva with HandiHaler) atorvastatin 80 mg tablet (Lipitor) 80 mg PO QDAY #0 12/16/16 05/01/21 metformin 500 mg tablet 500 mg PO DAILY 05/01/20 05/01/21 Previous Rx's Medication Instructions Recorded gabapentin 800 mg tablet 800 mg PO TID #90 12/27/16 meperidine 100 mg tablet (Demerol) 100 mg PO Q4P #60 tab 12/27/16 progesterone micronized 100 mg 100 mg PO QDAY #60 cap 08/16/19 capsule (Prometrium) estradiol (Estring) 1 vaginalrin VAG [id number] #1 each 02/15/20 insulin glargine 100 unit/mL (3 25 unit (0.25 mL) SUBCUT QPM #15 ml 05/10/20 mL) subcutaneous pen (Lantus Solostar U-100 Insulin) fluconazole 150 mg tablet 150 mg PO ONCE #2 tab 05/18/20 clindamycin HCl 300 mg capsule 300 mg PO TID #21 cap 06/07/20 oxycodone 5 mg tablet 5 mg PO Q6H PRN #10 tab 06/07/20 doxycycline hyclate 100 mg tablet 100 mg PO BID #20 tab 07/08/20 estradiol 1 mg tablet See Rx Instructions .ROUTE 11/26/20 .COMPLEX #90 tab hydrocodone 5 mg-acetaminophen 325 1 tab PO Q6H PRN #10 tab 03/25/21 mg tablet sucralfate 100 mg/mL oral 10 ml PO QID #420 ml 03/25/21 suspension (Carafate) ondansetron 4 mg disintegrating 4 mg PO Q8H PRN #10 tab 06/25/21 tablet pantoprazole 40 mg tablet,delayed 40 mg PO DAILY #30 tab 06/25/21 release (Protonix) Allergies Allergy/AdvReac Type Severity Reaction Status Date / Time levofloxacin [LEVOFLOXACIN] Allergy Severe hives Verified 05/01/21 14:13 Sulfa (Sulfonamide Allergy Severe rash Verified 05/01/21 14:13 Antibiotics) [SULFA (SULFONAMIDE ANTIBIOTICS)] amoxicillin [From AUGMENTIN] Allergy Mild rash Verified 05/01/21 14:13 ciprofloxacin [From CIPRO] Allergy Mild rash Verified 05/01/21 14:13 clarithromycin [From BIAXIN] Allergy Mild rash Verified 05/01/21 14:13 clavulanic acid Allergy Mild rash Verified 05/01/21 14:13 [From AUGMENTIN] morphine [MORPHINE] AdvReac Mild n/v Verified 05/01/21 14:13 pregabalin [PREGABALIN] AdvReac Mild lost voice Verified 05/01/21 14:13 Review of Systems Review of Systems Narrative: GENERAL: Denies chills, positive for fatigue, malaise, negative for fever, sweats. HEENT: Positive for sinus pain, and rhinorrhea, negative for ear pain, sore throat RESPIRATORY: Denies dyspnea, cough CARDIOVASCULAR: Denies chest pain, palpitations GASTROINTESTINAL: Positive for nausea, negative for vomiting, abdominal pain : Denies dysuria, frequency, hematuria MUSCULOSKELETAL: denies muscle or bony pain SKIN: Denies rash, skin lesions NEUROLOGIC: Denies weakness, numbness, positive for dizziness ROS Unobtainable: All systems reviewed & are unremarkable except as noted in HPI and below Patient History Medical History Anxiety Arthritis Bipolar disorder Depression Diabetes mellitus Fibroids GERD (gastroesophageal reflux disease) History of gastrointestinal symptoms HIV (human immunodeficiency virus infection) Hypertension PTSD (post-traumatic stress disorder) Surgical History History of cystoscopy (2013) History of stress incontinence procedure using tension free vaginal tape (2013) S/P functional endoscopic sinus surgery (2002) Status post arthroscopy (2003) Status post cholecystectomy (2011) Status post laparoscopic supracervical hysterectomy (2011) Family History Father Congestive heart failure Social History Smoking Status: Current every day smoker Smoking Status: Current every day smoker tobacco type: vaping alcohol intake frequency: holidays/special occasions only Substance Use Type: marijuana Exam Narrative Exam Narrative: GENERAL: in no distress, not toxic not dyspneic HEAD: Normocephalic. EYES: Pupils equal round No scleral icterus. ENT: Mucous membranes moist. Thickened mucosa of nasal cavity. Bilateral tenderness of the frontal and maxillary sinuses. NECK: Trachea midline. CARDIOVASCULAR: Regular rate and rhythm without murmurs RESPIRATORY: Clear to auscultation. Breath sounds equal bilaterally. No wheezes, rales, or rhonchi. GASTROINTESTINAL: Abdomen soft, non-tender, no peritoneal signs bowel sounds present. EXTREMITIES: No gross deformities. BACK: No flank tenderness. NEURO: AOx4. SKIN: Warm and dry PSYCH: Not anxious, is cooperative Initial Vital Signs Initial Vital Signs: Vital Signs Temperature 98.6 F 06/25/21 16:43 Pulse Rate 89 06/25/21 16:43 Respiratory Rate 18 06/25/21 16:43 Blood Pressure 142/64 H 06/25/21 16:43 Pulse Oximetry 97 06/25/21 16:43 Course Course Course Narrative: No new issues during course of stay Orders Ordered: ED Orders 06/25/21 16:57 COVID19 -Nasal swab/Pre-Proc Stat Complete Blood Count AUTO DIFF Stat Comprehensive Metabolic Panel Stat Lipase Stat Discontinued Medications Fluticasone Propionate (Fluticasone 120 [place]/16 Gm [place].Susp) 1 spray NASAL NOW ONE Stop: 06/25/21 19:57 Last Admin: 06/25/21 20:29 Dose: 1 spray Documented by: LETITIA Sodium Chloride (Normal Saline 0.9%) 1,000 mls @ 1,000 mls/hr IV BOLUS ONE Stop: 06/25/21 20:55 Last Infusion: 06/25/21 21:08 Dose: 0 mls/hr Documented by: Admin: 06/25/21 20:07 Dose: 1,000 mls/hr Documented by: LETITIA Meclizine HCl (Meclizine Hcl 12.5 Mg Tablet) 50 mg PO NOW ONE Stop: 06/25/21 19:57 Last Admin: 06/25/21 20:07 Dose: 50 mg Documented by: LETITIA Ondansetron HCl (Ondansetron 4 Mg/2 Ml Inj) 4 mg IV NOW ONE Stop: 06/25/21 19:57 Last Admin: 06/25/21 20:07 Dose: 4 mg Documented by: LETITIA Pantoprazole Sodium (Pantoprazole 40 Mg Vial) 40 mg IV NOW ONE Stop: 06/25/21 19:57 Last Admin: 06/25/21 20:08 Dose: 40 mg Documented by: LETITIA Reevaluation(s) Reevaluation #1: Nausea much better after Zofran. Protonix given. No changes with Antivert. Flonase improved her sinus pressure and nose. They agree with treatment plan and discharge home and follow-up with her family doctor as well as ENT this month. She was to start Protonix as well. As well as Zofran. Flonase given here and will be sent home with her. Time: 21:10 Vital Signs Vital signs: Vital Signs - 8 hr 06/25/21 21:20 Pulse Rate 86 Respiratory Rate 18 Blood Pressure 130/73 Pulse Oximetry 97 Medical Decision Making Lab Data Result diagrams: 06/25/21 16:57 06/25/21 16:57 Labs: Lab Results 06/25/21 06/25/21 06/25/21 Range/Units 16:57 16:57 16:57 WBC 10.3 (4.5-11.0) X10^3/uL RBC 4.93 (4.0-5.2) X10^6/uL Hgb 14.7 (12.0-16.0) g/dL Hct 43.7 (36-46) % MCV 88.6 (80-100) fL MCH 29.8 (26-34) PG MCHC 33.6 (30-36) % RDW 13.9 (11.6-14.8) % Plt Count 270 (150-400) X10^3/uL Neut % (Auto) 64.4 (50-75) % Lymph % (Auto) 28.7 (25-40) % Summers % (Auto) 4.3 (3-14) % Eos % (Auto) 2.0 (2-4) % Baso % (Auto) 0.6 (0-2) % Neut # (Auto) 6600 (5589-0217) /uL Lymph # (Auto) 2900 (1759-2777) /uL Summers # (Auto) 400 (0-900) /uL Eos # (Auto) 200 (0-450) /uL Baso # (Auto) 100 (0-100) /uL Sodium 138 (137-145) mmol/L Potassium 4.2 (3.4-5.1) mmol/L Chloride 100 (98-107) mmol/L Carbon Dioxide 35 H (22-32) mmol/L BUN 10 (7-17) mg/dL Creatinine 0.75 (0.52-1.04) mg/dL Estimated GFR > 60.0 (>60) mL/min BUN/Creatinine Ratio 13.3 (6-22) Glucose 188 H (70-100) mg/dL Calcium 9.7 (8.4-10.2) mg/dL Total Bilirubin 0.5 (0.2-1.3) mg/dL AST 27 (14-36) IU/L ALT 20 (<35) IU/L Alkaline Phosphatase 81 (38-126) U/L Total Protein 8.1 (6.3-8.2) g/dL Albumin 4.4 (3.5-5.0) g/dL Globulin 3.7 (1.7-4.1) g/dL Albumin/Globulin Ratio 1.2 (1.0-2.8) Lipase 132 (23-300) U/L SARS-CoV-2 (PCR) Negative (Negative) Point of Care Testing Test Results Negative Urine Dip Bedside Urine Glucose Negative Bedside Urine Bilirubin + 1 Bedside Urine Ketone +/- 5 Urine Specific [place] 1.030 Bedside Urine Occult Blood - Negative Bedside Urine pH 6.0 Bedside Urine Protein + 30 Bedside Urine Urobilinogen - Negative Bedside Urine Nitrite - Negative Bedside Urine Leukocytes - Negative Esterase Point of care testing: Point of Care Testing Test Results Negative Urine Dip Bedside Urine Glucose Negative Bedside Urine Bilirubin + 1 Bedside Urine Ketone +/- 5 Urine Specific [place] 1.030 Bedside Urine Occult Blood - Negative Bedside Urine pH 6.0 Bedside Urine Protein + 30 Bedside Urine Urobilinogen - Negative Bedside Urine Nitrite - Negative Bedside Urine Leukocytes - Negative Esterase MDM Narrative Medical decision making narrative: Appropriate for discharge home. Exam and laboratory studies are reassuring. Symptoms today are chronic and ongoing. They are not new. She does have appropriate follow-up. Return precautions reviewed with her and . They agree with treatment plan. They do feel much better after treatment here. They desire discharge home. Discharge Plan Departure Patient Disposition: Home Clinical Impression: Chronic sinusitis, Diabetic gastroparesis Instructions: DI for Sinusitis Activity Restrictions/Additional Instructions: See your new ENT doctor this month as scheduled. May use Flonase spray to the nose daily. [place] 1 spray to each nostril in the morning. Prescription for Protonix and Zofran has been sent to her pharmacy. See your family doctor within a week for recheck. Return if worse if any questions or concerns. Prescriptions: New pantoprazole [Protonix] 40 mg tablet,delayed release (DR/EC) 40 mg PO DAILY Qty: 30 0RF ondansetron 4 mg tablet,disintegrating 4 mg PO Q8H PRN (Reason: nausea and vomiting) Qty: 10 0RF No Action fluconazole 150 mg tablet 150 mg PO ONCE Qty: 2 0RF Rx Instructions: Repeat in 72 hours if still symptomatic propranolol 80 MG capsule,extended release 24 hr 80 mg PO QDAY Qty: 0 0RF prazosin [Minipress] 1 MG capsule 1 mg PO BID Qty: 0 0RF bupropion HCl 75 MG tablet 75 mg PO BID Qty: 0 0RF albuterol sulfate [Ventolin HFA] 90 MCG/PUFF HFA aerosol inhaler 2 puff INH BIDP PRNQty: 0 0RF clonazepam 1 MG tablet 1 mg PO TID Qty: 0 0RF fluticasone propionate [Flonase Allergy Relief] 9.9 ML spray,suspension 1 spray Intranasal BID Qty: 0 0RF [id number] [Triumeq] 1 EACH tablet 1 tab PO QDAY Qty: 0 0RF dexlansoprazole [Dexilant] 60 MG capsule,biphase delayed releas 60 mg PO QDAY Qty: 0 0RF amitriptyline 50 MG tablet 50 mg PO HS Qty: 0 0RF cetirizine 10 MG tablet 10 mg PO QDAY Qty: 0 0RF glimepiride [Amaryl] 4 MG tablet 4 mg PO BID Qty: 0 0RF losartan 25 MG tablet 25 mg PO QDAY Qty: 0 0RF metformin [Fortamet] 1,000 MG tablet extended release 24hr 1,000 mg PO BEDTIME Qty: 0 0RF tiotropium bromide [Spiriva with HandiHaler] 18 MCG capsule, w/inhalation device 1 puff INH QDAY Qty: 0 0RF atorvastatin [Lipitor] 80 MG tablet 80 mg PO QDAY Qty: 0 0RF gabapentin 800 MG tablet 800 mg PO TID Qty: 90 1RF meperidine [Demerol] 100 MG tablet 100 mg PO Q4P Qty: 60 0RF progesterone micronized [Prometrium] 100 mg capsule 100 mg PO QDAY Qty: 60 0RF Rx Instructions: Please schedule appointment for refills. Estring 2 mg (7.5 mcg /24 hour) ring 1 vaginalrin VAG [id number] Qty: 1 4RF estradiol 1 mg tablet See Rx Instructions .ROUTE .COMPLEX Qty: 90 3RF Dose Instruction: TAKE 1 TABLET BY MOUTH EVERY DAY Rx Instructions: TAKE 1 TABLET BY MOUTH EVERY DAY oxycodone 5 mg tablet 5 mg PO Q6H PRN (Reason: pain) Qty: 10 0RF clindamycin HCl 300 mg capsule 300 mg PO TID Qty: 21 0RF sucralfate [Carafate] 100 mg/mL suspension 10 ml PO QID Qty: 420 0RF Rx Instructions: swish in mouth and swallow; use after food/drink hydrocodone-acetaminophen 5-325 mg tablet 1 tab PO Q6H PRN (Reason: pain) Qty: 10 0RF metformin 500 mg Tablet 500 mg PO DAILY 0RF Rx Instructions: take in the morning Lantus Solostar U-100 Insulin 100 unit/mL (3 mL) insulin pen 25 unit SUBCUT QPM Qty: 15 0RF doxycycline hyclate 100 mg tablet 100 mg PO BID Qty: 20 0RF
[2021-06-25] MEDS: SODIUM CHLORIDE 0.9% 1,000 ML 1000 ML IV (20:07)
[2021-06-25] MEDS: ONDANSETRON 4 MG/2 ML INJ IV (20:07)
[2021-06-25] MEDS: MECLIZINE HCL 12.5 MG TABLET 50 MG PO (20:07)
[2021-06-25] MEDS: PANTOPRAZOLE 40 MG VIAL IV (20:08)
[2021-06-25] MEDS: FLUTICASONE 120 SPRAY/16 GM SPRAY.SUSP NASAL (20:29)
[2021-06-25 21:20] VITALS: BP 130/73; PULSE 86; RESP 18; O2SAT 97
== END 2021-06-25 21:21 | disposition home or self-care (01) ==
PROVIDERS: Emergency Medicine; Emergency Provider Emergency Medicine
DX: J32.9 Chronic sinusitis, unspecified (principal); E11.43 Type 2 diabetes mellitus with diabetic autonomic (poly)neuropathy; K31.84 Gastroparesis; Z79.84 Long term (current) use of oral hypoglycemic drugs; F17.290 Nicotine dependence, other tobacco product, uncomplicated; Z20.822 Contact with and (suspected) exposure to COVID-19
CPT/HCPCS: 36415; 80053; 81003; 81025; 83690; 85025; 87635; 96361; 96374; 96375; 99284; C9803; C9113; J2405

== ENCOUNTER 2021-07-17 17:14 | Emergency (ER) | payer MEDICARE, OTHER, SELFPAY ==
[2021-07-17 17:41] VITALS: BP 141/75; PULSE 87; RESP 16; TEMP 36.8; O2SAT 97; BMI 26.6
[2021-07-17 18:16] LABS: Add Manual Diff / Slide Review NO; Basophils Absolute Auto 100 /uL (0-100); Basophils Percent Auto 1.1 % (0-2); Eosinophils Absolute Auto 200 /uL (0-450); Eosinophils Percent Auto 1.5 % (2-4); Hematocrit 42.1 % (36-46); Hemoglobin 14.2 g/dL (12.0-16.0); Lymphocytes Absolute Auto 3400 /uL (1100-4500); Lymphocytes Percent Auto 28.3 % (25-40); Mean Corpuscular HGB Conc 33.6 % (30-36); Mean Corpuscular Hemoglobin 29.5 PG (26-34); Mean Corpuscular Volume 87.7 fL (80-100); Monocytes Absolute Auto 500 /uL (0-900); Monocytes Percent Auto 4.4 % (3-14); Neutrophils Absolute Auto 7700 /uL (1500-7000); Neutrophils Percent Auto 64.7 % (50-75); Platelet Count 311 X10^3/uL (150-400); Red Cell Distribution Width 13.9 % (11.6-14.8); White Blood Cell Count 11.9 X10^3/uL (4.5-11.0)
[2021-07-17 18:26] LABS: Alanine Aminotransferase 15 IU/L (<35); Albumin 4.6 g/dL (3.5-5.0); Albumin Globulin Ratio 1.2 (1.0-2.8); Alkaline Phosphatase 84 U/L (38-126); Aspartate Aminotransferase 21 IU/L (14-36); Bilirubin Total 0.6 mg/dL (0.2-1.3); Blood Urea Nitrogen 4 mg/dL (7-17); Calcium 9.3 mg/dL (8.4-10.2); Carbon Dioxide 28 mmol/L (22-32); Chloride 102 mmol/L (98-107); Estimated Glomerular Filt Rate > 60.0 mL/min (>60); Globulin 3.7 g/dL (1.7-4.1); Glucose 121 mg/dL (70-100); HEMOLYSIS < 15 (0-50); Lipase 98 U/L (23-300); Potassium 3.5 mmol/L (3.4-5.1); Sodium 141 mmol/L (137-145); Total Protein 8.3 g/dL (6.3-8.2)
[2021-07-17 18:28] LABS: Pregnancy Test Urine Negative (Negative)
[2021-07-17 18:31] LABS: Appearance Urine UA CLEAR; Bilirubin Urine UA NEGATIVE (NEGATIVE); Color Urine UA YELLOW; Glucose Urine UA 1+ g/dL (Negative); Ketones Urine UA NEGATIVE (NEGATIVE); Leukocyte Esterase Urine UA TRACE (NEGATIVE); Nitrite Urine UA NEGATIVE (Negative); Occult Blood Urine UA NEGATIVE (Negative); Protein Urine UA TRACE (Negative); Specific Gravity Urine UA 1.015 (1.000-1.035); Urobilinogen Urine UA 0.2 E.U./dL (0.2)
[2021-07-17 18:34] LABS: Amorphous Sediment Urine 1+; Bacteria Urine Moderate (10-30); RBC Urine None Seen (0-5/HPF); Squamous Epithelial Cell Urine 1-5 /HPF (0-5/HPF); WBC Urine 1-5/HPF (0-5/HPF); pH Urine UA 5.5 (4.5-8.0)
[2021-07-17 18:35] LABS: Culture Indicated Urine Specimen Cultured
[2021-07-17 18:38] VITALS: BP 140/64; PULSE 85; O2SAT 96
[2021-07-17 19:00] VITALS: BP 135/70; PULSE 88; RESP 18; O2SAT 98
--- NOTE | 2021-07-17 19:12 | ED.ABDPAIN ---
HPI - Abdominal Pain <JUSTO Ortiz - Last Filed: 07/17/21 19:57> General Chief Complaint: Abdominal Pain Stated Complaint: Burning and tightness in chest/back Time Seen by Provider: 07/17/21 18:50 Source: patient Mode of arrival: Ambulatory History of Present Illness HPI narrative: 50-year-old female with history of HIV, diabetes, gastroparesis, H pylori, COPD, fibromyalgia, depression, osteoarthritis presents to the emergency department complaining of worsening abdominal pain similar to her chronic abdominal pain but worsening. Patient states that she does not know what to do. She states that she recently had an endoscopy and a colonoscopy without any abnormal findings. She has an upcoming gastroenterology appointment on August 07, 2021, she states that she has been taking her Suboxone as prescribed, this is 8 mg sublingual each morning, and this is not helping for her pain. Patient states she did not take her Suboxone this morning. She has not seen her primary care provider for at least 2 weeks, she states that her pain has gotten worse over the last week, and Dr. Gallegos does not know about it. Patient denies any dysuria, abnormal vaginal discharge, fever, blood in her urine or her stool, denies any emesis, denies any dizziness, mental status changes, or weakness. Related Data Home Medications Medication Instructions Recorded Confirmed prazosin 1 mg capsule (Minipress) 1 mg PO BID #0 03/10/16 05/01/21 propranolol 80 mg capsule,24 80 mg PO QDAY #0 03/10/16 05/01/21 hr,extended release albuterol sulfate 90 mcg/actuation 2 puff INH BIDP PRN #0 09/03/16 05/01/21 aerosol inhaler (Ventolin HFA) bupropion HCl 75 mg tablet 75 mg PO BID #0 09/03/16 05/01/21 clonazepam 1 mg tablet 1 mg PO TID #0 09/03/16 05/01/21 fluticasone propionate 50 1 spray INTRANASAL BID #0 09/03/16 05/01/21 mcg/actuation nasal spray,suspension (Flonase Allergy Relief) abacavir 600 mg-dolutegravir 50 1 tab PO QDAY #0 11/24/16 05/01/21 mg-lamivudine 300 mg tablet (Triumeq) amitriptyline 50 mg tablet 50 mg PO HS #0 11/24/16 05/01/21 cetirizine 10 mg tablet 10 mg PO QDAY #0 11/24/16 05/01/21 dexlansoprazole 60 mg 60 mg PO QDAY #0 11/24/16 05/01/21 capsule,biphase delayed release (Dexilant) glimepiride 4 mg tablet (Amaryl) 4 mg PO BID #0 11/24/16 05/01/21 losartan 25 mg tablet 25 mg PO QDAY #0 11/24/16 05/01/21 metformin 1,000 mg tablet,extended 1,000 mg PO BEDTIME #0 11/24/16 05/01/21 release 24hr (Fortamet) tiotropium bromide 18 mcg capsule 1 puff INH QDAY #0 11/24/16 05/01/21 with inhalation device (Spiriva with HandiHaler) atorvastatin 80 mg tablet (Lipitor) 80 mg PO QDAY #0 12/16/16 05/01/21 metformin 500 mg tablet 500 mg PO DAILY 05/01/20 05/01/21 Previous Rx's Medication Instructions Recorded gabapentin 800 mg tablet 800 mg PO TID #90 12/27/16 meperidine 100 mg tablet (Demerol) 100 mg PO Q4P #60 tab 12/27/16 progesterone micronized 100 mg 100 mg PO QDAY #60 cap 08/16/19 capsule (Prometrium) estradiol (Estring) 1 vaginalrin VAG [id number] #1 each 02/15/20 insulin glargine 100 unit/mL (3 25 unit (0.25 mL) SUBCUT QPM #15 ml 05/10/20 mL) subcutaneous pen (Lantus Solostar U-100 Insulin) fluconazole 150 mg tablet 150 mg PO ONCE #2 tab 05/18/20 clindamycin HCl 300 mg capsule 300 mg PO TID #21 cap 06/07/20 oxycodone 5 mg tablet 5 mg PO Q6H PRN #10 tab 06/07/20 doxycycline hyclate 100 mg tablet 100 mg PO BID #20 tab 07/08/20 estradiol 1 mg tablet See Rx Instructions .ROUTE 11/26/20 .COMPLEX #90 tab hydrocodone 5 mg-acetaminophen 325 1 tab PO Q6H PRN #10 tab 03/25/21 mg tablet sucralfate 100 mg/mL oral 10 ml PO QID #420 ml 03/25/21 suspension (Carafate) ondansetron 4 mg disintegrating 4 mg PO Q8H PRN #10 tab 06/25/21 tablet pantoprazole 40 mg tablet,delayed 40 mg PO DAILY #30 tab 06/25/21 release (Protonix) sucralfate 1 gram tablet (Carafate) 1 g PO QACHS #45 tab 07/17/21 Allergies Allergy/AdvReac Type Severity Reaction Status Date / Time levofloxacin [LEVOFLOXACIN] Allergy Severe hives Verified 05/01/21 14:13 Sulfa (Sulfonamide Allergy Severe rash Verified 05/01/21 14:13 Antibiotics) [SULFA (SULFONAMIDE ANTIBIOTICS)] amoxicillin [From AUGMENTIN] Allergy Mild rash Verified 05/01/21 14:13 ciprofloxacin [From CIPRO] Allergy Mild rash Verified 05/01/21 14:13 clarithromycin [From BIAXIN] Allergy Mild rash Verified 05/01/21 14:13 clavulanic acid Allergy Mild rash Verified 05/01/21 14:13 [From AUGMENTIN] morphine [MORPHINE] AdvReac Mild n/v Verified 05/01/21 14:13 pregabalin [PREGABALIN] AdvReac Mild lost voice Verified 05/01/21 14:13 Review of Systems <JUSTO Ortiz - Last Filed: 07/17/21 19:57> Review of Systems Narrative: General: denies fever, chills, malaise, sweats, fatigue Head/Neck: denies headache, neck pain, dizziness Eyes: denies visual changes, eye pain Cardio: denies chest pain, palpitations, edema Respiratory: denies dyspnea, cough, orthopnea GI: Endorses having constant generalized abdominal pain, epigastric burning, without nausea, vomiting, or diarrhea : denies dysuria, hematuria, urinary retention, frequency or incontinence MSK: denies joint pain, muscle weakness Skin: denies rash, itching, skin lesions or other Neuro: denies numbness, tingling Patient History <JUSTO Ortiz - Last Filed: 07/17/21 19:57> Medical History Anxiety Arthritis Bipolar disorder Depression Diabetes mellitus Fibroids GERD (gastroesophageal reflux disease) History of gastrointestinal symptoms HIV (human immunodeficiency virus infection) Hypertension PTSD (post-traumatic stress disorder) Surgical History History of cystoscopy (2013) History of stress incontinence procedure using tension free vaginal tape (2013) S/P functional endoscopic sinus surgery (2002) Status post arthroscopy (2003) Status post cholecystectomy (2011) Status post laparoscopic supracervical hysterectomy (2011) Family History Father Congestive heart failure Social History Smoking Status: Current every day smoker Smoking Status: Current every day smoker tobacco type: cigarettes alcohol intake frequency: holidays/special occasions only Substance Use Type: marijuana Exam <JUSTO Ortiz - Last Filed: 07/17/21 19:57> Narrative Exam Narrative: Independently reviewed vitals signs and nursing notes. General: cooperative, comfortable, in no acute distress, well developed Head: atraumatic, symmetrical facial expressions Neck: supple, atraumatic, without lymphadenopathy. Eyes: pupils equal round and reactive, EOMI, conjunctiva normal Nose: nares patent, no rhinorrhea Mouth/Throat: uvula midline, moist mucus membranes Cardiovascular: regular rate and rhythm, no peripheral edema, warm extremities Respiratory: normal effort, able to speak in complete sentences, no audible wheezing, stridor, or rales. No retractions or tachypnea. GI: abdomen soft, nontender to palpation, nondistended, obese, no masses, no exquisite tenderness with exam, without guarding or rebound. MSK: moves all extremities, ambulatory w/steady gait, neurovascularly intact, no weakness Skin: brisk capillary refill, no rash, no erythema Neuro: normal speech and cognition, A&O x3, normal tone Psych: mental status is grossly normal, congruent mood, normal affect, pleasant and cooperative Initial Vital Signs Initial Vital Signs: Vital Signs Temperature 98.2 F 07/17/21 17:41 Pulse Rate 87 07/17/21 17:41 Respiratory Rate 16 07/17/21 17:41 Blood Pressure 141/75 H 07/17/21 17:41 Pulse Oximetry 97 03/24/22 17:41 <Kerry Flores MD - Last Filed: 07/18/21 01:56> Initial Vital Signs Initial Vital Signs: Vital Signs Temperature 98.2 F 07/17/21 17:41 Pulse Rate 87 07/17/21 17:41 Respiratory Rate 16 07/17/21 17:41 Blood Pressure 141/75 H 07/17/21 17:41 Pulse Oximetry 97 07/17/21 17:41 Course <JUSTO Ortiz - Last Filed: 07/17/21 19:57> Orders Ordered: ED Orders 07/17/21 17:53 Test Urine Stat Urinalysis and Microscopic Stat Urine Culture Stat 07/17/21 17:57 Complete Blood Count AUTO DIFF Stat Comprehensive Metabolic Panel Stat Lipase Stat Discontinued Medications Clonazepam (Clonazepam 0.5 Mg Tablet) 1 mg PO NOW ONE Stop: 07/17/21 19:24 Last Admin: 07/17/21 19:35 Dose: 1 mg Documented by: LETITIA Al Hydrox/Mg Hydrox/Simethicone 20 ml/ Lidocaine HCl 15 ml 0 ml PO NOW ONE Stop: 07/17/21 19:13 Last Admin: 07/17/21 19:37 Dose: 35 ml Documented by: LETITIA Gabapentin (Gabapentin 100 Mg Capsule) 800 mg PO NOW ONE Stop: 07/17/21 19:25 Last Admin: 07/17/21 19:41 Dose: 800 mg Documented by: LETITIA Ketorolac Tromethamine (Ketorolac 30 Mg/Ml Vial) 15 mg IM NOW ONE Stop: 07/17/21 19:19 Last Admin: 07/17/21 19:38 Dose: 15 mg Documented by: LETITIA Oxycodone/Acetaminophen (Oxycodone/Acetaminophen 5/325 Tablet) 2 tab PO NOW ONE Stop: 07/17/21 19:13 Last Admin: 07/17/21 19:35 Dose: 2 tab Documented by: LETITIA Oxycodone/Acetaminophen (Oxycodone/Acetaminophen 5/325 Tablet) 2 tab PO NOW ONE Stop: 07/17/21 19:51 Last Admin: 07/17/21 20:02 Dose: Not Given Documented by: LETITIA Oxycodone/Acetaminophen (Oxycodone/Apap 5/325 Prepack) 1 bottle MISC SEEINSTR ONE Stop: 07/17/21 20:12 Last Admin: 07/17/21 20:14 Dose: 1 bottle Documented by: LETITIA Sucralfate (Sucralfate 1 Gm Tablet) 1 gm PO NOW ONE Stop: 07/17/21 19:15 Last Admin: 07/17/21 19:44 Dose: Not Given Documented by: LETITIA Vital Signs Vital signs: Vital Signs - 8 hr 07/17/21 18:38 07/17/21 19:00 07/17/21 19:30 Pulse Rate 85 88 87 Respiratory Rate 18 14 Blood Pressure 140/64 135/70 125/62 Pulse Oximetry 96 98 97 07/17/21 20:00 Pulse Rate 84 Respiratory Rate 12 Blood Pressure 118/70 Pulse Oximetry 99 <Kerry Flores MD - Last Filed: 07/18/21 01:56> Orders Ordered: ED Orders 07/17/21 17:53 Test Urine Stat Urinalysis and Microscopic Stat Urine Culture Stat 07/17/21 17:57 Complete Blood Count AUTO DIFF Stat Comprehensive Metabolic Panel Stat Lipase Stat Discontinued Medications Clonazepam (Clonazepam 0.5 Mg Tablet) 1 mg PO NOW ONE Stop: 07/17/21 19:24 Last Admin: 07/17/21 19:35 Dose: 1 mg Documented by: LETITIA Al Hydrox/Mg Hydrox/Simethicone 20 ml/ Lidocaine HCl 15 ml 0 ml PO NOW ONE Stop: 07/17/21 19:13 Last Admin: 07/17/21 19:37 Dose: 35 ml Documented by: LETITIA Gabapentin (Gabapentin 100 Mg Capsule) 800 mg PO NOW ONE Stop: 07/17/21 19:25 Last Admin: 07/17/21 19:41 Dose: 800 mg Documented by: LETITIA Ketorolac Tromethamine (Ketorolac 30 Mg/Ml Vial) 15 mg IM NOW ONE Stop: 07/17/21 19:19 Last Admin: 07/17/21 19:38 Dose: 15 mg Documented by: LETITIA Oxycodone/Acetaminophen (Oxycodone/Acetaminophen 5/325 Tablet) 2 tab PO NOW ONE Stop: 07/17/21 19:13 Last Admin: 07/17/21 19:35 Dose: 2 tab Documented by: LETITIA Oxycodone/Acetaminophen (Oxycodone/Acetaminophen 5/325 Tablet) 2 tab PO NOW ONE Stop: 07/17/21 19:51 Last Admin: 07/17/21 20:02 Dose: Not Given Documented by: LETITIA Oxycodone/Acetaminophen (Oxycodone/Apap 5/325 Prepack) 1 bottle MISC SEEINSTR ONE Stop: 07/17/21 20:12 Last Admin: 07/17/21 20:14 Dose: 1 bottle Documented by: LETITIA Sucralfate (Sucralfate 1 Gm Tablet) 1 gm PO NOW ONE Stop: 07/17/21 19:15 Last Admin: 07/17/21 19:44 Dose: Not Given Documented by: LETITIA Vital Signs Vital signs: Vital Signs - 8 hr 07/17/21 18:38 07/17/21 19:00 07/17/21 19:30 Pulse Rate 85 88 87 Respiratory Rate 18 14 Blood Pressure 140/64 135/70 125/62 Pulse Oximetry 96 98 97 07/17/21 20:00 Pulse Rate 84 Respiratory Rate 12 Blood Pressure 118/70 Pulse Oximetry 99 MDM - Abdominal Pain <JUSTO Ortiz - Last Filed: 07/17/21 19:57> Lab Data Result diagrams: 07/17/21 17:57 07/17/21 17:57 Labs: Lab Results 07/17/21 07/17/21 07/17/21 Range/Units 17:53 17:53 17:57 WBC 11.9 H (4.5-11.0) X10^3/uL RBC 4.80 (4.0-5.2) X10^6/uL Hgb 14.2 (12.0-16.0) g/dL Hct 42.1 (36-46) % MCV 87.7 (80-100) fL MCH 29.5 (26-34) PG MCHC 33.6 (30-36) % RDW 13.9 (11.6-14.8) % Plt Count 311 (150-400) X10^3/uL Neut % (Auto) 64.7 (50-75) % Lymph % (Auto) 28.3 (25-40) % [place] % (Auto) 4.4 (3-14) % Eos % (Auto) 1.5 L (2-4) % Baso % (Auto) 1.1 (0-2) % Neut # (Auto) 7700 H (8616-3330) /uL Lymph # (Auto) 3400 (4220-1224) /uL [place] # (Auto) 500 (0-900) /uL Eos # (Auto) 200 (0-450) /uL Baso # (Auto) 100 (0-100) /uL Sodium (137-145) mmol/L Potassium (3.4-5.1) mmol/L Chloride (98-107) mmol/L Carbon Dioxide (22-32) mmol/L BUN (7-17) mg/dL Creatinine (0.52-1.04) mg/dL Estimated GFR (>60) mL/min BUN/Creatinine Ratio (6-22) Glucose (70-100) mg/dL Calcium (8.4-10.2) mg/dL Total Bilirubin (0.2-1.3) mg/dL AST (14-36) IU/L ALT (<35) IU/L Alkaline Phosphatase (38-126) U/L Total Protein (6.3-8.2) g/dL Albumin (3.5-5.0) g/dL Globulin (1.7-4.1) g/dL Albumin/Globulin Ratio (1.0-2.8) Lipase (23-300) U/L Urine Color Yellow Urine Appearance Clear Urine pH 5.5 (4.5-8.0) Ur Specific [place] 1.015 (1.000-1.035) Urine Protein Trace H (Negative) Urine Glucose (UA) 1+ H (Negative) g/dL Urine Ketones Negative (NEGATIVE) Urine Occult Blood Negative (Negative) Urine Nitrate Negative (Negative) Urine Bilirubin Negative (NEGATIVE) Urine Urobilinogen 0.2 (0.2) E.U./dL Ur Leukocyte Esterase Trace H (NEGATIVE) Urine RBC None seen (0-5/HPF) Urine WBC 1-5/hpf (0-5/HPF) Ur Squamous Epith Cells 1-5 /hpf D (0-5/HPF) Amorphous Sediment 1+ Urine Bacteria Moderate (10-30) H (None) Ur Culture Indicated? Specimen cultured Urine Test Negative (Negative) 07/17/21 Range/Units 17:57 WBC (4.5-11.0) X10^3/uL RBC (4.0-5.2) X10^6/uL Hgb (12.0-16.0) g/dL Hct (36-46) % MCV (80-100) fL MCH (26-34) PG MCHC (30-36) % RDW (11.6-14.8) % Plt Count (150-400) X10^3/uL Neut % (Auto) (50-75) % Lymph % (Auto) (25-40) % [place] % (Auto) (3-14) % Eos % (Auto) (2-4) % Baso % (Auto) (0-2) % Neut # (Auto) (9148-6782) /uL Lymph # (Auto) (4961-6287) /uL [place] # (Auto) (0-900) /uL Eos # (Auto) (0-450) /uL Baso # (Auto) (0-100) /uL Sodium 141 (137-145) mmol/L Potassium 3.5 (3.4-5.1) mmol/L Chloride 102 (98-107) mmol/L Carbon Dioxide 28 (22-32) mmol/L BUN 4 L (7-17) mg/dL Creatinine 0.67 (0.52-1.04) mg/dL Estimated GFR > 60.0 (>60) mL/min BUN/Creatinine Ratio 6.0 (6-22) Glucose 121 H (70-100) mg/dL Calcium 9.3 (8.4-10.2) mg/dL Total Bilirubin 0.6 (0.2-1.3) mg/dL AST 21 (14-36) IU/L ALT 15 (<35) IU/L Alkaline Phosphatase 84 (38-126) U/L Total Protein 8.3 H (6.3-8.2) g/dL Albumin 4.6 (3.5-5.0) g/dL Globulin 3.7 (1.7-4.1) g/dL Albumin/Globulin Ratio 1.2 (1.0-2.8) Lipase 98 (23-300) U/L Urine Color Urine Appearance Urine pH (4.5-8.0) Ur Specific [place] (1.000-1.035) Urine Protein (Negative) Urine Glucose (UA) (Negative) g/dL Urine Ketones (NEGATIVE) Urine Occult Blood (Negative) Urine Nitrate (Negative) Urine Bilirubin (NEGATIVE) Urine Urobilinogen (0.2) E.U./dL Ur Leukocyte Esterase (NEGATIVE) Urine RBC (0-5/HPF) Urine WBC (0-5/HPF) Ur Squamous Epith Cells (0-5/HPF) Amorphous Sediment Urine Bacteria (None) Ur Culture Indicated? Urine Test (Negative) MDM Narrative Medical decision making narrative: 50-year-old female with long history of chronic abdominal pain related to GERD/H pylori/peptic ulcer disease who presents to the emergency department complaining of abdominal pain which has been worsening for the last week. Patient has a history of HIV, diabetes, COPD, on Suboxone currently, did not take her dose today she states, fibromyalgia, anxiety and depression who states that she is taking Dexilant for her GERD, she has an upcoming gastroenterology appointment on August 07, 2021 at [facility]. She also has a history of gastroparesis, her medication list was updated. She was given 2 doses of Percocet in the emergency department, Toradol, a GI cocktail, she states the GI cocktail helped most with her pain. Shared medical decision-making with patient about imaging, patient has had multiple, and head, she has had endoscopy and colonoscopy without any abnormal findings recently, patient opted to not have a CT scan today after discussion about risks versus benefits. Patient understands to follow-up closely with her primary care provider about her symptoms, no gross abnormalities were found on lab workup today. Patient has a mild leukocytosis which is neutrophil dominant. Her UA shows leukocytes, bacteria and protein but patient does not have any urinary symptoms at this time, opted to avoid antibiotics due to her lack of symptoms. Urine was cultured. Encourage close follow-up with her primary care provider for outpatient testing/H pylori/stool sample testing for her gastroenterology appointment. Patient was given strict return precautions, her and her partner understand to return to the emergency department for any new or worsening symptoms. She was given a prescription for Carafate a.c. and HS, she was given Percocet in the emergency department as she did not take her Suboxone dose today. Patient is appropriate and amenable to discharge home. Vital signs are stable on repeat examination is unremarkable. Patient has been informed of results. Patient has been given strict return to ER precautions for any new or worsening symptoms. Patient understands to follow up closely with outpatient providers as instructed. Patient understands plan and agrees to discharge home. All questions and concerns answered at this time. <Kerry Flores MD - Last Filed: 07/18/21 01:56> Lab Data Labs: Lab Results 07/17/21 07/17/21 07/17/21 Range/Units 17:53 17:53 17:57 WBC 11.9 H (4.5-11.0) X10^3/uL RBC 4.80 (4.0-5.2) X10^6/uL Hgb 14.2 (12.0-16.0) g/dL Hct 42.1 (36-46) % MCV 87.7 (80-100) fL MCH 29.5 (26-34) PG MCHC 33.6 (30-36) % RDW 13.9 (11.6-14.8) % Plt Count 311 (150-400) X10^3/uL Neut % (Auto) 64.7 (50-75) % Lymph % (Auto) 28.3 (25-40) % [place] % (Auto) 4.4 (3-14) % Eos % (Auto) 1.5 L (2-4) % Baso % (Auto) 1.1 (0-2) % Neut # (Auto) 7700 H (3225-8574) /uL Lymph # (Auto) 3400 (9591-2293) /uL [place] # (Auto) 500 (0-900) /uL Eos # (Auto) 200 (0-450) /uL Baso # (Auto) 100 (0-100) /uL Sodium (137-145) mmol/L Potassium (3.4-5.1) mmol/L Chloride (98-107) mmol/L Carbon Dioxide (22-32) mmol/L BUN (7-17) mg/dL Creatinine (0.52-1.04) mg/dL Estimated GFR (>60) mL/min BUN/Creatinine Ratio (6-22) Glucose (70-100) mg/dL Calcium (8.4-10.2) mg/dL Total Bilirubin (0.2-1.3) mg/dL AST (14-36) IU/L ALT (<35) IU/L Alkaline Phosphatase (38-126) U/L Total Protein (6.3-8.2) g/dL Albumin (3.5-5.0) g/dL Globulin (1.7-4.1) g/dL Albumin/Globulin Ratio (1.0-2.8) Lipase (23-300) U/L Urine Color Yellow Urine Appearance Clear Urine pH 5.5 (4.5-8.0) Ur Specific [place] 1.015 (1.000-1.035) Urine Protein Trace H (Negative) Urine Glucose (UA) 1+ H (Negative) g/dL Urine Ketones Negative (NEGATIVE) Urine Occult Blood Negative (Negative) Urine Nitrate Negative (Negative) Urine Bilirubin Negative (NEGATIVE) Urine Urobilinogen 0.2 (0.2) E.U./dL Ur Leukocyte Esterase Trace H (NEGATIVE) Urine RBC None seen (0-5/HPF) Urine WBC 1-5/hpf (0-5/HPF) Ur Squamous Epith Cells 1-5 /hpf D (0-5/HPF) Amorphous Sediment 1+ Urine Bacteria Moderate (10-30) H (None) Ur Culture Indicated? Specimen cultured Urine Test Negative (Negative) 07/17/21 Range/Units 17:57 WBC (4.5-11.0) X10^3/uL RBC (4.0-5.2) X10^6/uL Hgb (12.0-16.0) g/dL Hct (36-46) % MCV (80-100) fL MCH (26-34) PG MCHC (30-36) % RDW (11.6-14.8) % Plt Count (150-400) X10^3/uL Neut % (Auto) (50-75) % Lymph % (Auto) (25-40) % [place] % (Auto) (3-14) % Eos % (Auto) (2-4) % Baso % (Auto) (0-2) % Neut # (Auto) (0364-9512) /uL Lymph # (Auto) (0684-0072) /uL [place] # (Auto) (0-900) /uL Eos # (Auto) (0-450) /uL Baso # (Auto) (0-100) /uL Sodium 141 (137-145) mmol/L Potassium 3.5 (3.4-5.1) mmol/L Chloride 102 (98-107) mmol/L Carbon Dioxide 28 (22-32) mmol/L BUN 4 L (7-17) mg/dL Creatinine 0.67 (0.52-1.04) mg/dL Estimated GFR > 60.0 (>60) mL/min BUN/Creatinine Ratio 6.0 (6-22) Glucose 121 H (70-100) mg/dL Calcium 9.3 (8.4-10.2) mg/dL Total Bilirubin 0.6 (0.2-1.3) mg/dL AST 21 (14-36) IU/L ALT 15 (<35) IU/L Alkaline Phosphatase 84 (38-126) U/L Total Protein 8.3 H (6.3-8.2) g/dL Albumin 4.6 (3.5-5.0) g/dL Globulin 3.7 (1.7-4.1) g/dL Albumin/Globulin Ratio 1.2 (1.0-2.8) Lipase 98 (23-300) U/L Urine Color Urine Appearance Urine pH (4.5-8.0) Ur Specific [place] (1.000-1.035) Urine Protein (Negative) Urine Glucose (UA) (Negative) g/dL Urine Ketones (NEGATIVE) Urine Occult Blood (Negative) Urine Nitrate (Negative) Urine Bilirubin (NEGATIVE) Urine Urobilinogen (0.2) E.U./dL Ur Leukocyte Esterase (NEGATIVE) Urine RBC (0-5/HPF) Urine WBC (0-5/HPF) Ur Squamous Epith Cells (0-5/HPF) Amorphous Sediment Urine Bacteria (None) Ur Culture Indicated? Urine Test (Negative) Discharge Plan Departure Patient Disposition: Home Clinical Impression: Abdominal pain Instructions: DI for Abdominal Pain-Adult Activity Restrictions/Additional Instructions: *You have been diagnosed with abdominal pain. I am sorry to hear about your long history with this abdominal pain. It sounds very challenging to deal with. Please continue taking all of your medications as prescribed. Please add Carafate 4 times a day until you see gastroenterology. This may help with some of your burning pain. You are already on the maximum medication for ulcer prevention, please avoid taking any ibuprofen, alcohol, acidic foods, caffeine, or spicy foods. You can try liquid shakes like protein shakes, to see how these are tolerated by you, they have milky texture, which may be soothing to your stomach. Please follow-up with Dr. Gallegos tomorrow, make an appointment for follow-up from the emergency department. Please let him know how much pain you are in and ask for any other options that he may have. The best thing is to get to your appointment with Gastroenterology on the . At home you may use Benadryl with Maalox to help soothe some of this feeling but the Carafate should do the trick to COVID your stomach before eating food. Please take it before meals, hopefully will not burn is much when you do eat. Please return to the emergency department if you have any worsening of this pain. Return to your primary care provider for any additional testing or outpatient referrals. Thank you for trusting us with your care, I hope you feel better soon. *What to do: *Please continue to take your regular medications as directed. [x ] New medication prescriptions sent to your pharmacy: [x ] [ ] New medication written as a paper prescription [ ] No new medications given *Please follow up with your primary care provider in 2-3 days, call for an appointment. Let them know you were seen in the Emergency Department and that we asked that you be seen for follow-up. We will electronically transmit a record of today's note if your PCP is in our system *If you do not have a primary care provider please contact [phone] to establish care with one of [facility] primary care providers. *Return to Emergency Department if you should have any new, worsening or concerning symptoms, such as [fever greater than 101F, chills, worsening pain, persistent vomiting or other bothersome symptoms] Prescriptions: New sucralfate [Carafate] 1 gram tablet 1 g PO QACHS Qty: 45 0RF No Action fluconazole 150 mg tablet 150 mg PO ONCE Qty: 2 0RF Rx Instructions: Repeat in 72 hours if still symptomatic propranolol 80 MG capsule,extended release 24 hr 80 mg PO QDAY Qty: 0 0RF prazosin [Minipress] 1 MG capsule 1 mg PO BID Qty: 0 0RF bupropion HCl 75 MG tablet 75 mg PO BID Qty: 0 0RF albuterol sulfate [Ventolin HFA] 90 MCG/PUFF HFA aerosol inhaler 2 puff INH BIDP PRNQty: 0 0RF clonazepam 1 MG tablet 1 mg PO TID Qty: 0 0RF fluticasone propionate [Flonase Allergy Relief] 9.9 ML spray,suspension 1 spray Intranasal BID Qty: 0 0RF [id number] [Triumeq] 1 EACH tablet 1 tab PO QDAY Qty: 0 0RF dexlansoprazole [Dexilant] 60 MG capsule,biphase delayed releas 60 mg PO QDAY Qty: 0 0RF amitriptyline 50 MG tablet 50 mg PO HS Qty: 0 0RF cetirizine 10 MG tablet 10 mg PO QDAY Qty: 0 0RF glimepiride [Amaryl] 4 MG tablet 4 mg PO BID Qty: 0 0RF losartan 25 MG tablet 25 mg PO QDAY Qty: 0 0RF metformin [Fortamet] 1,000 MG tablet extended release 24hr 1,000 mg PO BEDTIME Qty: 0 0RF tiotropium bromide [Spiriva with HandiHaler] 18 MCG capsule, w/inhalation device 1 puff INH QDAY Qty: 0 0RF atorvastatin [Lipitor] 80 MG tablet 80 mg PO QDAY Qty: 0 0RF gabapentin 800 MG tablet 800 mg PO TID Qty: 90 1RF meperidine [Demerol] 100 MG tablet 100 mg PO Q4P Qty: 60 0RF progesterone micronized [Prometrium] 100 mg capsule 100 mg PO QDAY Qty: 60 0RF Rx Instructions: Please schedule appointment for refills. Estring 2 mg (7.5 mcg /24 hour) ring 1 vaginalrin VAG [id number] Qty: 1 4RF estradiol 1 mg tablet See Rx Instructions .ROUTE .COMPLEX Qty: 90 3RF Dose Instruction: TAKE 1 TABLET BY MOUTH EVERY DAY Rx Instructions: TAKE 1 TABLET BY MOUTH EVERY DAY oxycodone 5 mg tablet 5 mg PO Q6H PRN (Reason: pain) Qty: 10 0RF clindamycin HCl 300 mg capsule 300 mg PO TID Qty: 21 0RF sucralfate [Carafate] 100 mg/mL suspension 10 ml PO QID Qty: 420 0RF Rx Instructions: swish in mouth and swallow; use after food/drink hydrocodone-acetaminophen 5-325 mg tablet 1 tab PO Q6H PRN (Reason: pain) Qty: 10 0RF metformin 500 mg Tablet 500 mg PO DAILY 0RF Rx Instructions: take in the morning Lantus Solostar U-100 Insulin 100 unit/mL (3 mL) insulin pen 25 unit SUBCUT QPM Qty: 15 0RF doxycycline hyclate 100 mg tablet 100 mg PO BID Qty: 20 0RF pantoprazole [Protonix] 40 mg tablet,delayed release (DR/EC) 40 mg PO DAILY Qty: 30 0RF ondansetron 4 mg tablet,disintegrating 4 mg PO Q8H PRN (Reason: nausea and vomiting) Qty: 10 0RF Referrals: Milton Gallegos DO [Primary Care Provider] - <Kerry Flores MD - Last Filed: 07/18/21 01:56> Cosign ED Attending Cosignature Attestation: I was immediately available in the department for consultation throughout this patient's visit. I agree with documentation as above. Kerry Flores MD
[2021-07-17 19:30] VITALS: BP 125/62; PULSE 87; RESP 14; O2SAT 97
[2021-07-17] MEDS: clonazePAM 0.5 MG TABLET 1 MG PO (19:35)
[2021-07-17] MEDS: OXYCODONE/ACETAMINOPHEN 5/325 TABLET 2 TAB PO (19:35)
[2021-07-17] MEDS: MAG HYDROX/ALUMINUM/SIMETH SUS 20 ML, LIDOCAINE VISCOUS 2% 15 ML PO (19:37)
[2021-07-17] MEDS: KETOROLAC 30 MG/ML VIAL 15 MG IM (19:38)
[2021-07-17] MEDS: GABAPENTIN 100 MG CAPSULE 800 MG PO (19:41)
[2021-07-17 20:00] VITALS: BP 118/70; PULSE 84; RESP 12; O2SAT 99
[2021-07-17] MEDS: OXYCODONE/APAP 5/325 PREPACK 1 BOTTLE MISC (20:14)
== END 2021-07-17 20:15 | disposition home or self-care (01) ==
PROVIDERS: Emergency Medicine; Emergency Provider Nurse Practitioner Critical Care Medicine; PCP Family Medicine
DX: R10.9 Unspecified abdominal pain (principal); B20 Human immunodeficiency virus [HIV] disease
CPT/HCPCS: 36415; 80053; 81001; 81025; 83690; 85025; 87086; 96372; 99283; J1885

== ENCOUNTER → 2021-07-31 10:35 | Outpatient (CLI) | payer MEDICARE, OTHER, SELFPAY ==
--- NOTE | 2021-07-31 10:44 | DI.CT.S_ITS ---
PROCEDURE: CT SINUS SCREEN WO CON INDICATIONS: Chronic pansinusitis TECHNIQUE: Noncontrast 3.0 mm axial images acquired from the frontal sinuses to the mid-sella, with coronal and sagittal reformats. For radiation dose reduction, the following was used: automated exposure control, adjustment of mA and/or kV according to patient size. COMPARISON: [facility], CT, CT HEAD/BRAIN WO CON, 07/08/2020, 21:01. [facility], CT, CT SINUS WITHOUT CONTRAST, 01/19/2020, 9:17. [facility], CT, CT HEAD WITHOUT CONTRAST, 09/09/2018, 19:28. [facility], CT, CT HEAD WITHOUT CONTRAST, 03/26/2017, 15:05. [facility], CT, BRAIN W/O CONTRAST, 10/14/2013, 13:47. FINDINGS: Image quality: Excellent. Maxillary Sinuses: Moderate mucosal thickening is seen within the left maxillary sinus. The medial wall of the left maxillary sinus is absent. A portion of the medial wall of the right maxillary sinus is also not seen. The right maxillary sinus appears clear. Ethmoid Air Cells: No bony remodeling or destruction. Sinuses are clear. Sphenoid Sinuses: No bony remodeling or destruction. Sinuses are clear. Frontal Sinuses: No bony remodeling or destruction. Sinuses are clear. Ostiomeatal Complexes: The left ostiomeatal complex has been removed. 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 Miscellaneous: Visualized intra-orbital contents are normal. There are small bilateral shari bullosa. There is minimal rightward nasal septal deviation. Incidental note is made of hyperostosis frontalis. This is not considered to be pathologic in a woman of this age. IMPRESSION: Prior postoperative change, with left-sided antrectomy. A portion of the right medial maxillary sinus is also not seen. Please correlate with prior surgery at this site. Moderate mucosal thickening is seen within the left maxillary sinus. Constitutionally narrowed right ostiomeatal complex, with Sai cells. Dictated by: Alex Love M.D. on 07/31/2021 at 11:10 Approved by: Alex Love M.D. on 07/31/2021 at 11:13
== END ==
PROVIDERS: PCP Family Medicine; Referring Provider Otolaryngology; Visit Provider Otolaryngology
DX: J32.4 Chronic pansinusitis (principal)
CPT/HCPCS: 70486

== ENCOUNTER 2021-09-05 20:20 | Emergency (ER) | payer MEDICARE, OTHER, SELFPAY ==
[2021-09-05 20:45] VITALS: BP 147/68; PULSE 104; RESP 17; TEMP 36.2; O2SAT 98; BMI 26.6
--- NOTE | 2021-09-05 20:48 | DI.RAD.S_ITS ---
PROCEDURE: XR CHEST 1V INDICATIONS: chest pain TECHNIQUE: One view of the chest was acquired. COMPARISON: [facility], CR, XR CHEST 1V, 03/26/2021, 16:11. FINDINGS: Surgical changes and devices: None. Lungs and pleura: Lungs are clear. No pleural effusions or pneumothorax. Mediastinum: Mediastinal contours appear normal. Heart size is normal. Bones and chest wall: No suspicious bony lesions. Overlying soft tissues appear unremarkable. IMPRESSION: 1. No acute cardiopulmonary disease. Dictated by: Hossein Scott M.D. on 09/05/2021 at 22:44 Approved by: Hossein Scott M.D. on 09/05/2021 at 22:44
[2021-09-05 21:42] LABS: Add Manual Diff / Slide Review NO; Basophils Absolute Auto 0 /uL (0-100); Basophils Percent Auto 0.1 % (0-2); Eosinophils Absolute Auto 100 /uL (0-450); Eosinophils Percent Auto 0.6 % (2-4); Hemoglobin 15.2 g/dL (12.0-16.0); Lymphocytes Absolute Auto 600 /uL (1100-4500); Lymphocytes Percent Auto 4.5 % (25-40); Mean Corpuscular HGB Conc 33.7 % (30-36); Mean Corpuscular Hemoglobin 29.5 PG (26-34); Mean Corpuscular Volume 87.4 fL (80-100); Monocytes Absolute Auto 300 /uL (0-900); Monocytes Percent Auto 2.4 % (3-14); Neutrophils Absolute Auto 12600 /uL (1500-7000); Neutrophils Percent Auto 92.4 % (50-75); Platelet Count 255 X10^3/uL (150-400); Red Blood Cell Count 5.15 X10^6/uL (4.0-5.2); White Blood Cell Count 13.7 X10^3/uL (4.5-11.0)
[2021-09-05 21:49] LABS: Alanine Aminotransferase 16 IU/L (<35); Albumin 4.2 g/dL (3.5-5.0); Albumin Globulin Ratio 1.2 (1.0-2.8); Alkaline Phosphatase 95 U/L (38-126); Aspartate Aminotransferase 22 IU/L (14-36); BUN Creatinine Ratio 15.7 (6-22); Bilirubin Total 0.8 mg/dL (0.2-1.3); Blood Urea Nitrogen 11 mg/dL (7-17); Calcium 9.2 mg/dL (8.4-10.2); Carbon Dioxide 23 mmol/L (22-32); Chloride 103 mmol/L (98-107); Creatine Kinase 40 U/L (30-135); Estimated Glomerular Filt Rate > 60 mL/min (>60); Globulin 3.6 g/dL (1.7-4.1); Glucose 241 mg/dL (70-100); HEMOLYSIS < 15 (0-50); Lipase 232 U/L (23-300); Magnesium 1.3 mg/dL (1.6-2.3); Potassium 3.9 mmol/L (3.4-5.1); Sodium 138 mmol/L (137-145); Total Protein 7.8 g/dL (6.3-8.2)
[2021-09-05 22:00] LABS: Troponin I < 0.012 ng/mL (0.01-0.034)
[2021-09-05 22:03] VITALS: BP 155/75
[2021-09-05 22:04] VITALS: PULSE 70; O2SAT 99
[2021-09-05 22:30] VITALS: BP 157/80; PULSE 69; RESP 12; O2SAT 96
[2021-09-05] MEDS: ONDANSETRON 4 MG/2 ML INJ IV (22:48)
[2021-09-05 23:00] VITALS: BP 148/73; PULSE 72; RESP 20; O2SAT 96
--- NOTE | 2021-09-05 23:19 | ED.HA ---
HPI - Headache General Chief Complaint: Headache Stated Complaint: Migraine with nausea today Time Seen by Provider: 09/05/21 22:30 Mode of arrival: Wheelchair History of Present Illness HPI Narrative: 50-year-old female with history of HIV, diabetes, gastroparesis, H pylori, COPD, fibromyalgia, depression presents with a chief complaint of gradually worsening generalized abdominal pain over the course of the day with symptoms consistent with prior visits. She states that her pain seems to be worse with motion as well as eating or drinking and seems to briefly improve after she vomits. After vomiting she developed some epigastric pain as well. She denies any blood in and admits that she has had fever as high as 100.7 earlier today but denies any shaking chills. She has developed over the course of the day a generalized headache that is free of any obvious provocation, palliation or radiation. She denies any diarrhea but has been slightly constipated, additionally she has had decreased urine output but denies any dysuria, urgency or hematuria. Related Data Home Medications Medication Instructions Recorded Confirmed prazosin 1 mg capsule (Minipress) 1 mg PO BID #0 03/10/16 05/01/21 propranolol 80 mg capsule,24 80 mg PO QDAY #0 03/10/16 05/01/21 hr,extended release albuterol sulfate 90 mcg/actuation 2 puff INH BIDP PRN #0 09/03/16 05/01/21 aerosol inhaler (Ventolin HFA) bupropion HCl 75 mg tablet 75 mg PO BID #0 09/03/16 05/01/21 clonazepam 1 mg tablet 1 mg PO TID #0 09/03/16 05/01/21 fluticasone propionate 50 1 spray INTRANASAL BID #0 09/03/16 05/01/21 mcg/actuation nasal spray,suspension (Flonase Allergy Relief) abacavir 600 mg-dolutegravir 50 1 tab PO QDAY #0 11/24/16 05/01/21 mg-lamivudine 300 mg tablet (Triumeq) amitriptyline 50 mg tablet 50 mg PO HS #0 11/24/16 05/01/21 cetirizine 10 mg tablet 10 mg PO QDAY #0 11/24/16 05/01/21 dexlansoprazole 60 mg 60 mg PO QDAY #0 11/24/16 05/01/21 capsule,biphase delayed release (Dexilant) glimepiride 4 mg tablet (Amaryl) 4 mg PO BID #0 11/24/16 05/01/21 losartan 25 mg tablet 25 mg PO QDAY #0 11/24/16 05/01/21 metformin 1,000 mg tablet,extended 1,000 mg PO BEDTIME #0 11/24/16 05/01/21 release 24hr (Fortamet) tiotropium bromide 18 mcg capsule 1 puff INH QDAY #0 11/24/16 05/01/21 with inhalation device (Spiriva with HandiHaler) atorvastatin 80 mg tablet (Lipitor) 80 mg PO QDAY #0 12/16/16 05/01/21 metformin 500 mg tablet 500 mg PO DAILY 05/01/20 05/01/21 Previous Rx's Medication Instructions Recorded gabapentin 800 mg tablet 800 mg PO TID #90 12/27/16 meperidine 100 mg tablet (Demerol) 100 mg PO Q4P #60 tab 12/27/16 progesterone micronized 100 mg 100 mg PO QDAY #60 cap 08/16/19 capsule (Prometrium) estradiol (Estring) 1 vaginalrin VAG [id number] #1 each 02/15/20 insulin glargine 100 unit/mL (3 25 unit (0.25 mL) SUBCUT QPM #15 ml 05/10/20 mL) subcutaneous pen (Lantus Solostar U-100 Insulin) fluconazole 150 mg tablet 150 mg PO ONCE #2 tab 05/18/20 clindamycin HCl 300 mg capsule 300 mg PO TID #21 cap 06/07/20 oxycodone 5 mg tablet 5 mg PO Q6H PRN #10 tab 06/07/20 doxycycline hyclate 100 mg tablet 100 mg PO BID #20 tab 07/08/20 estradiol 1 mg tablet See Rx Instructions .ROUTE 11/26/20 .COMPLEX #90 tab hydrocodone 5 mg-acetaminophen 325 1 tab PO Q6H PRN #10 tab 03/25/21 mg tablet sucralfate 100 mg/mL oral 10 ml PO QID #420 ml 03/25/21 suspension (Carafate) ondansetron 4 mg disintegrating 4 mg PO Q8H PRN #10 tab 06/25/21 tablet pantoprazole 40 mg tablet,delayed 40 mg PO DAILY #30 tab 06/25/21 release (Protonix) sucralfate 1 gram tablet (Carafate) 1 g PO QACHS #45 tab 07/17/21 metoclopramide HCl 10 mg tablet 10 mg PO Q6H PRN #20 tab 09/06/21 (Reglan) pantoprazole 40 mg tablet,delayed 40 mg PO DAILY #30 tab 09/06/21 release (Protonix) promethazine 25 mg rectal 25 mg AZ Q4-6H PRN #12 ea 09/06/21 suppository Allergies Allergy/AdvReac Type Severity Reaction Status Date / Time levofloxacin [LEVOFLOXACIN] Allergy Severe hives Verified 05/01/21 14:13 Sulfa (Sulfonamide Allergy Severe rash Verified 05/01/21 14:13 Antibiotics) [SULFA (SULFONAMIDE ANTIBIOTICS)] amoxicillin [From AUGMENTIN] Allergy Mild rash Verified 05/01/21 14:13 ciprofloxacin [From CIPRO] Allergy Mild rash Verified 05/01/21 14:13 clarithromycin [From BIAXIN] Allergy Mild rash Verified 05/01/21 14:13 clavulanic acid Allergy Mild rash Verified 05/01/21 14:13 [From AUGMENTIN] morphine [MORPHINE] AdvReac Mild n/v Verified 05/01/21 14:13 pregabalin [PREGABALIN] AdvReac Mild lost voice Verified 05/01/21 14:13 Review of Systems Review of Systems Narrative: GENERAL: See HPI s. HEENT: Denies sinus pain, ear pain, sore throat, difficulty swallowing, dizziness. RESPIRATORY: Denies dyspnea, cough, wheezing, hemoptysis, sputum. CARDIOVASCULAR: Denies chest pain, palpitations, orthopnea, edema, GASTROINTESTINAL: See HPI. : See HPI MUSCULOSKELETAL: denies weakness, joint pain, or bony pain SKIN: Denies rash, skin lesions, or other NEUROLOGIC: Denies weakness, headache, numbness, change in speech, confusion, seizures, incoordination. PSYCHIATRIC: No concerning psychosocial issues. 12 point review of systems is negative except for those stated above Patient History Medical History Anxiety Arthritis Bipolar disorder Depression Diabetes mellitus Fibroids GERD (gastroesophageal reflux disease) History of gastrointestinal symptoms HIV (human immunodeficiency virus infection) Hypertension PTSD (post-traumatic stress disorder) Surgical History History of cystoscopy (2013) History of stress incontinence procedure using tension free vaginal tape (2013) S/P functional endoscopic sinus surgery (2002) Status post arthroscopy (2003) Status post cholecystectomy (2011) Status post laparoscopic supracervical hysterectomy (2011) Family History Father Congestive heart failure Social History Smoking Status: Current every day smoker Smoking Status: Current every day smoker tobacco type: cigarettes alcohol intake frequency: holidays/special occasions only Substance Use Type: marijuana Exam Narrative Exam Narrative: GENERAL: [50 year old patient appears stated age. Well-developed patient, in mild distress. HEAD: Atraumatic. Normocephalic. EYES: Pupils equal round and reactive. Extraocular motions intact. No scleral icterus. No injection or drainage. ENT: Nose without bleeding, purulent drainage. Throat without erythema, tonsillar hypertrophy or exudate. Airway patent. NECK: Trachea midline. Non tender CARDIOVASCULAR: Regular rate and rhythm without murmurs, gallops, or rubs. RESPIRATORY: Clear to auscultation. Breath sounds equal bilaterally. No wheezes, rales, or rhonchi. GASTROINTESTINAL: Abdomen soft, non-tender, nondistended. EXTREMITIES: No edema or joint tenderness. BACK: Nontender without deformity or crepitance. No flank tenderness. NEURO: AOx3. SKIN: No rash or erythema of visible areas Initial Vital Signs Initial Vital Signs: Vital Signs Temperature 97.1 F L 09/05/21 20:45 Pulse Rate 104 H 09/05/21 20:45 Respiratory Rate 17 09/05/21 20:45 Blood Pressure 147/68 H 09/05/21 20:45 Pulse Oximetry 98 09/05/21 20:45 Course Orders Ordered: ED Orders 09/05/21 20:48 XR chest 1V Stat EKG-12 Lead Stat 09/05/21 21:28 Complete Blood Count AUTO DIFF Stat Comprehensive Metabolic Panel Stat Lipase Stat Magnesium Stat Troponin & CK Cardiac Panel Stat 09/05/21 23:31 CT abdomen pelvis w con Stat Discontinued Medications Hydromorphone HCl (Hydromorphone 1 Mg Inj) 1 mg IV NOW ONE Stop: 09/05/21 23:32 Last Admin: 09/05/21 23:54 Dose: 1 mg Documented by: JARON Sodium Chloride (Normal Saline 0.9%) 1,000 mls @ 1,000 mls/hr IV BOLUS ONE Stop: 09/06/21 00:30 Last Infusion: 09/06/21 01:16 Dose: 0 mls/hr Documented by: Admin: 09/05/21 23:53 Dose: 1,000 mls/hr Documented by: JARON Metoclopramide HCl (Metoclopramide 10 Mg/2 Ml Inj) 10 mg IV NOW ONE Stop: 09/05/21 23:45 Last Admin: 09/05/21 23:53 Dose: 10 mg Documented by: JARON Ondansetron HCl (Ondansetron 4 Mg/2 Ml Inj) 4 mg IV NOW ONE Stop: 09/05/21 22:41 Last Admin: 09/05/21 22:48 Dose: 4 mg Documented by: JARON Pantoprazole Sodium (Pantoprazole 40 Mg Vial) 40 mg IV NOW ONE Stop: 09/06/21 00:56 Last Admin: 09/06/21 01:12 Dose: 40 mg Documented by: FAITH Reevaluation(s) Reevaluation #1: Improvement after above-stated therapies, her pain has resolved, she is not having persistent vomiting and feels remarkable improvement Vital Signs Vital signs: Vital Signs - 8 hr 09/05/21 20:45 09/05/21 22:03 09/05/21 22:04 Temperature 97.1 F L Pulse Rate 104 H 70 Respiratory Rate 17 Blood Pressure 147/68 H 155/75 H Pulse Oximetry 98 99 09/05/21 22:30 09/05/21 23:00 09/05/21 23:30 Temperature Pulse Rate 69 72 75 Respiratory Rate 12 20 27 H Blood Pressure 157/80 H 148/73 H 158/74 H Pulse Oximetry 96 96 96 09/06/21 00:00 09/06/21 00:30 09/06/21 01:00 Temperature Pulse Rate 81 80 117 H Respiratory Rate 11 L 15 26 H Blood Pressure Pulse Oximetry 98 97 96 09/06/21 01:20 Temperature Pulse Rate 116 H Respiratory Rate Blood Pressure 130/65 Pulse Oximetry 99 MDM - Headache Lab Data Result diagrams: 09/05/21 21:28 09/05/21 21:28 Labs: Lab Results 09/05/21 09/05/21 Range/Units 21:28 21:28 WBC 13.7 H (4.5-11.0) X10^3/uL RBC 5.15 (4.0-5.2) X10^6/uL Hgb 15.2 (12.0-16.0) g/dL Hct 45.0 (36-46) % MCV 87.4 (80-100) fL MCH 29.5 (26-34) PG MCHC 33.7 (30-36) % RDW 14.0 (11.6-14.8) % Plt Count 255 (150-400) X10^3/uL Neut % (Auto) 92.4 H (50-75) % Lymph % (Auto) 4.5 L (25-40) % [place] % (Auto) 2.4 L (3-14) % Eos % (Auto) 0.6 L (2-4) % Baso % (Auto) 0.1 (0-2) % Neut # (Auto) 73150 H (1178-9914) /uL Lymph # (Auto) 600 L (6348-3559) /uL [place] # (Auto) 300 (0-900) /uL Eos # (Auto) 100 (0-450) /uL Baso # (Auto) 0 (0-100) /uL Sodium 138 (137-145) mmol/L Potassium 3.9 (3.4-5.1) mmol/L Chloride 103 (98-107) mmol/L Carbon Dioxide 23 (22-32) mmol/L BUN 11 (7-17) mg/dL Creatinine 0.70 (0.52-1.04) mg/dL Estimated GFR > 60 (>60) mL/min BUN/Creatinine Ratio 15.7 (6-22) Glucose 241 H (70-100) mg/dL Calcium 9.2 (8.4-10.2) mg/dL Magnesium 1.3 L (1.6-2.3) mg/dL Total Bilirubin 0.8 (0.2-1.3) mg/dL AST 22 (14-36) IU/L ALT 16 (<35) IU/L Alkaline Phosphatase 95 (38-126) U/L Total Creatine Kinase 40 (30-135) U/L CK-MB (CK-2) TNP CK-MB (CK-2) Rel Index TNP Troponin I < 0.012 (0.01-0.034) ng/mL Total Protein 7.8 (6.3-8.2) g/dL Albumin 4.2 (3.5-5.0) g/dL Globulin 3.6 (1.7-4.1) g/dL Albumin/Globulin Ratio 1.2 (1.0-2.8) Lipase 232 (23-300) U/L Point of Care Testing Glucose POC [address] scan - abdomen/pelvis: Radiologist's Impression: 68 Javon Arroyo, DO [facility] Routine Call Back Main ED ?7? My List ?7? Waiting ?0? Surge ED ?0? R02? Gurwinder? Shelbie? 50 F? With Doctor? 4h 46m? 3-Urgent? ?? Headache? Migraine with nausea today? ?? 09/05/21 22:30? REG ER? Draft? Javon Bryant ? Order BP Pulse 80 Resp 15 Temp O2 Sat 97% Lipase Sta... ?Magnesium ... ?Complete B... ?Chem Troponin &... Imaging MAR NPO Diet EKG-12 Dali... Cardiac mo... R04? Musa? Amy? 86 F? Pending Xfer to Other Facility? 6h 30m? 2-Emergent? ?? Chest Pain? Heavy Chest? ISO? 09/05/21 18:38? REG ER? Draft? Javon Bryant [facility] ETA 0100 ED --Report [id number] images sent to Order BP 165/77 Pulse 89 Resp 15 Temp O2 Sat 99% ?Complete B... ?Chem ?D Dimer St... ?NT-proBNP ... ?Troponin &... Lipase Sta... Procalcito... Prothrombi... Imaging Partial Th... COVID19 -N... ?Troponin I... MAR Cardiac mo... EKG-12 Dali... Partial Th... Partial Th... Partial Th... Partial Th... EKG-12 Dali... R06? Frizelle? Sal? 84 M? With Doctor? 5h 13m? 3-Urgent? ?? Weakness? Worsening Weakness x3 days? ?? 09/05/21 21:14? REG ER? Draft? Javon Arroyo Lizz T gluc 119@ 0050 Order BP 129/62 Pulse 104 Resp 22 Temp O2 Sat 97% (RA) ?Complete B... ?Chem ?Troponin &... ?Lipase Sta... ?Sodium Uri... Creatinine... Imaging COVID19 -N... MAR EKG-12 Dali... Cardiac mo... Chem EKG-12 Dali... R07? Green? Zeferino? 51 M? With Doctor? 1h 34m? 3-Urgent? VC: 1? Nausea/Vomiting/Diarrhea? cant eat x4 days/vomiting up after eating? C19S/S? 09/05/21 23:51? REG ER? Draft? Javon Arroyo Melyssa L Order BP 136/86 Pulse 99 Resp 19 Temp 97.9 F O2 Sat 100% (RA) Lipase Sta... ?Complete B... ?Chem MAR NPO Diet Cardiac mo... POC/ANDRAE Venous Blo... R08? Weygandt? Sarai? 34 F? With Doctor? 3h 4m? 4-Less Urgent? ?? Shortness of Breath/Dyspnea? Shortness of breath today? C19S/S? 09/05/21 23:50? REG ER? Draft? Javon Arroyo Order BP 137/97 Pulse 78 Resp 18 Temp 96.9 F O2 Sat 98% (RA) Imaging COVID19 -N... R10? Ring? Kristan? 25 F? Ready for Discharge? 4h 52m? 3-Urgent? ?? Upper Respiratory Symptoms? Pinched nerve in neck/cough x7days? C19S/S? 09/05/21 23:34? REG ER? Draft? Javon Saucedo R Order BP 133/97 Pulse 98 Resp 16 Temp 98.4 F O2 Sat 99% (RA) COVID19 -N... Imaging MAR Pleas? Nathalia? 89 F? Ready for Discharge? 5h 11m? 3-Urgent? ?? Hypertension? HTN? ?? 09/05/21 19:56? REG ER? Pending? Javon Bryant Order BP 153/71 Pulse Resp Temp O2 Sat ?Complete B... ?Chem Lipase Sta... Troponin &... Imaging MAR EKG-12 Dali... Cardiac mo... Imaging - CT abdomen pelvis w con; XR chest 1V Shelbie Purdy??50??F??1970 ? Allergy/Adv: levofloxacin, Sulfa (Sulfonamide Antibiotics), amoxicillin, ciprofloxacin, clarithromycin, clavulanic acid, morphine, pregabalin (More??) Close Results Imaging ACTIVITY DATE EXAM STATUS AUTHOR 09/05/21 23:31 Abdomen/Pelvis CT Signed Hossein Soctt 09/05/21 20:48 Chest X-Ray Signed Hosseni Scott Imaging Reports Close Abdomen/Pelvis CT (Signed) Hossein Scott - 09/05/21 Chest X-Ray (Signed) Hossein Scott - 09/05/21 Launch?[place] [address] CT Scan Report Signed Patient: Shelbie Purdy MR#: [id number] : 1970 Acct:[id number] Age/Sex: 50 / F Date of Service: 09/05/21 Loc: ED Accession Number: [id number] ?? Procedure: CT abdomen pelvis w con Ordering Provider: Javon Arroyo D.O. PROCEDURE:? CT ABDOMEN PELVIS W CON ? INDICATIONS:? severe pain ? TECHNIQUE:? After the administration of IV contrast, axial sections were acquired from the lung bases to the pubic symphysis.? Coronal and sagittal reformats were performed.? For radiation dose reduction, the following was used:? automated exposure control, adjustment of mA and/or kV according to patient size. ? COMPARISON:? [facility], CT, CT ABDOMEN PELVIS WITH CONTRAST, 04/11/2019, 16:45.? [facility], CT, CT ABDOMEN PELVIS WITHOUT CONTRAST, 08/01/2021, 13:24. ? FINDINGS:? Image quality:? Excellent.? ? Lung bases:? There is minimal dependent atelectasis.? ? Heart:? Heart is normal in size. ? ? ABDOMEN: Liver:? There is an oval cyst redemonstrated in the right hepatic lobe.? Additional small low-density foci within the right and left lobes appear similar to the prior studies and also likely represent cysts. Gallbladder:? Surgically absent. Biliary ducts:? No biliary ductal dilatation.? ? Pancreas:? Unremarkable.? ? Spleen:? Normal in size.? ? Adrenal Glands:? No adrenal nodules.? ? Kidneys and Ureters:? No hydronephrosis.? There is a small nonobstructing stone within the inferior pole of the right kidney measuring approximately 0.2 cm.? In the left kidney, there are 2 nonobstructing stones within the inferior pole, measuring up to 0.7 cm.? ? ? Stomach and Bowel:? Stomach, small bowel loops, and colon are normal in caliber and wall thickness.? The appendix is not discretely visualized and may be surgically absent.? There is moderate distention of the visualized colon.? Peritoneum:? No abnormal intraperitoneal fluid.? No free air.? ? Ventral Wall: ? No hernia.? Abdominal Nodes:? No retroperitoneal or mesenteric adenopathy by size criteria.? Vessels:? Aorta and inferior vena cava are normal in size.? ? PELVIS: Pelvic Organs:? Unremarkable.? ? Bladder:? Unremarkable.? ? Pelvic Nodes: No enlarged lymph nodes.? Miscellaneous: No inguinal hernias are seen. ? ? ? Bones:? Visualized osseous structures demonstrate no suspicious focal lesions. ? IMPRESSION:? ? 1. No definite acute intra-abdominal abnormality. ? 2. Bilateral nephrolithiasis without obstructive uropathy. ? ? ? Dictated by: Hossein Scott M.D. on 09/06/2021 at 0:26 ? ? Approved by: Hossein Scott M.D. on 09/06/2021 at 0:32 ? MDM Narrative Medical decision making narrative: Multiple etiologies for patient's symptoms considered including: [Bowel obstruction versus enteritis versus gastritis versus peptic ulcer disease versus other Patient's symptoms improved over duration of stay with above-stated therapies. Findings and discharge diagnosis discussed with patient/family followed by verbalization of understanding Return precautions discussed with patient/family whom verbalize understanding. Discharge Plan Departure Patient Disposition: Home Clinical Impression: Abdominal pain, Vomiting Instructions: DI for Abdominal Pain-Adult, DI for Vomiting -- Adult Activity Restrictions/Additional Instructions: *You have been diagnosed with [vomiting and abdominal pain. As we discussed your blood work, CT scan and response to medications is very reassuring. *What to do: *Please continue to take your regular medications as directed. [x ] New medication prescriptions sent to your pharmacy: [[facility] ] [ ] New medication written as a paper prescription [ ] No new medications given *Please follow up with your primary care provider in 2-3 days, call for an appointment. Let them know you were seen in the Emergency Department and that we ask that you be seen in follow up. We will electronically transmit a record of today's note if your PCP is in our system * please consider clear liquid diet for the next 24-48 hours and then advance slowly *If you do not have a primary care provider please contact the [facility] Resource line at [phone]. They will ask some questions about your medical history and help get you set up with a doctor in the community. *Return to Emergency Department if you should have any new, worsening or concerning symptoms, such as [fever greater than 101 F, shaking chills, worsening pain, persistent vomiting or other bothersome symptoms] Prescriptions: New promethazine 25 mg suppository 25 mg AZ Q4-6H PRN (Reason: nausea and vomiting) Qty: 12 0RF pantoprazole [Protonix] 40 mg tablet,delayed release (DR/EC) 40 mg PO DAILY Qty: 30 0RF metoclopramide HCl [Reglan] 10 mg tablet 10 mg PO Q6H PRN (Reason: nausea and vomiting) Qty: 20 0RF No Action fluconazole 150 mg tablet 150 mg PO ONCE Qty: 2 0RF Rx Instructions: Repeat in 72 hours if still symptomatic propranolol 80 MG capsule,extended release 24 hr 80 mg PO QDAY Qty: 0 0RF prazosin [Minipress] 1 MG capsule 1 mg PO BID Qty: 0 0RF bupropion HCl 75 MG tablet 75 mg PO BID Qty: 0 0RF albuterol sulfate [Ventolin HFA] 90 MCG/PUFF HFA aerosol inhaler 2 puff INH BIDP PRNQty: 0 0RF clonazepam 1 MG tablet 1 mg PO TID Qty: 0 0RF fluticasone propionate [Flonase Allergy Relief] 9.9 ML spray,suspension 1 spray Intranasal BID Qty: 0 0RF [id number] [Triumeq] 1 EACH tablet 1 tab PO QDAY Qty: 0 0RF dexlansoprazole [Dexilant] 60 MG capsule,biphase delayed releas 60 mg PO QDAY Qty: 0 0RF amitriptyline 50 MG tablet 50 mg PO HS Qty: 0 0RF cetirizine 10 MG tablet 10 mg PO QDAY Qty: 0 0RF glimepiride [Amaryl] 4 MG tablet 4 mg PO BID Qty: 0 0RF losartan 25 MG tablet 25 mg PO QDAY Qty: 0 0RF metformin [Fortamet] 1,000 MG tablet extended release 24hr 1,000 mg PO BEDTIME Qty: 0 0RF tiotropium bromide [Spiriva with HandiHaler] 18 MCG capsule, w/inhalation device 1 puff INH QDAY Qty: 0 0RF atorvastatin [Lipitor] 80 MG tablet 80 mg PO QDAY Qty: 0 0RF gabapentin 800 MG tablet 800 mg PO TID Qty: 90 1RF meperidine [Demerol] 100 MG tablet 100 mg PO Q4P Qty: 60 0RF progesterone micronized [Prometrium] 100 mg capsule 100 mg PO QDAY Qty: 60 0RF Rx Instructions: Please schedule appointment for refills. Estring 2 mg (7.5 mcg /24 hour) ring 1 vaginalrin [id number] [id number] Qty: 1 4RF estradiol 1 mg tablet See Rx Instructions .ROUTE .COMPLEX Qty: 90 3RF Dose Instruction: TAKE 1 TABLET BY MOUTH EVERY DAY Rx Instructions: TAKE 1 TABLET BY MOUTH EVERY DAY oxycodone 5 mg tablet 5 mg PO Q6H PRN (Reason: pain) Qty: 10 0RF clindamycin HCl 300 mg capsule 300 mg PO TID Qty: 21 0RF sucralfate [Carafate] 100 mg/mL suspension 10 ml PO QID Qty: 420 0RF Rx Instructions: swish in mouth and swallow; use after food/drink hydrocodone-acetaminophen 5-325 mg tablet 1 tab PO Q6H PRN (Reason: pain) Qty: 10 0RF metformin 500 mg Tablet 500 mg PO DAILY 0RF Rx Instructions: take in the morning Lantus Solostar U-100 Insulin 100 unit/mL (3 mL) insulin pen 25 unit SUBCUT QPM Qty: 15 0RF doxycycline hyclate 100 mg tablet 100 mg PO BID Qty: 20 0RF pantoprazole [Protonix] 40 mg tablet,delayed release (DR/EC) 40 mg PO DAILY Qty: 30 0RF ondansetron 4 mg tablet,disintegrating 4 mg PO Q8H PRN (Reason: nausea and vomiting) Qty: 10 0RF sucralfate [Carafate] 1 gram tablet 1 g PO QACHS Qty: 45 0RF
[2021-09-05 23:30] VITALS: BP 158/74; PULSE 75; RESP 27; O2SAT 96
--- NOTE | 2021-09-05 23:31 | DI.CT.S_ITS ---
PROCEDURE: CT ABDOMEN PELVIS W CON INDICATIONS: severe pain TECHNIQUE: After the administration of IV contrast, axial sections were acquired from the lung bases to the pubic symphysis. Coronal and sagittal reformats were performed. For radiation dose reduction, the following was used: automated exposure control, adjustment of mA and/or kV according to patient size. COMPARISON: [facility], CT, CT ABDOMEN PELVIS WITH CONTRAST, 04/11/2019, 16:45. [facility], CT, CT ABDOMEN PELVIS WITHOUT CONTRAST, 08/01/2021, 13:24. FINDINGS: Image quality: Excellent. Lung bases: There is minimal dependent atelectasis. Heart: Heart is normal in size. ABDOMEN: Liver: There is an oval cyst redemonstrated in the right hepatic lobe. Additional small low-density foci within the right and left lobes appear similar to the prior studies and also likely represent cysts. Gallbladder: Surgically absent. Biliary ducts: No biliary ductal dilatation. Pancreas: Unremarkable. Spleen: Normal in size. Adrenal Glands: No adrenal nodules. Kidneys and Ureters: No hydronephrosis. There is a small nonobstructing stone within the inferior pole of the right kidney measuring approximately 0.2 cm. In the left kidney, there are 2 nonobstructing stones within the inferior pole, measuring up to 0.7 cm. Stomach and Bowel: Stomach, small bowel loops, and colon are normal in caliber and wall thickness. The appendix is not discretely visualized and may be surgically absent. There is moderate distention of the visualized colon. Peritoneum: No abnormal intraperitoneal fluid. No free air. Ventral Wall: No hernia. Abdominal Nodes: No retroperitoneal or mesenteric adenopathy by size criteria. Vessels: Aorta and inferior vena cava are normal in size. PELVIS: Pelvic Organs: Unremarkable. Bladder: Unremarkable. Pelvic Nodes: No enlarged lymph nodes. Miscellaneous: No inguinal hernias are seen. Bones: Visualized osseous structures demonstrate no suspicious focal lesions. IMPRESSION: 1. No definite acute intra-abdominal abnormality. 2. Bilateral nephrolithiasis without obstructive uropathy. Dictated by: Hossein Scott M.D. on 09/06/2021 at 0:26 Approved by: Hossein Scott M.D. on 09/06/2021 at 0:32
[2021-09-05] MEDS: SODIUM CHLORIDE 0.9% 1,000 ML 1000 ML IV (23:53)
[2021-09-05] MEDS: METOCLOPRAMIDE 10 MG/2 ML INJ IV (23:53)
[2021-09-05] MEDS: HYDROMORPHONE 1 MG INJ IV (23:54)
[2021-09-06] VITALS: PULSE 81; RESP 11; O2SAT 98
[2021-09-06 00:30] VITALS: PULSE 80; RESP 15; O2SAT 97
[2021-09-06 01:00] VITALS: PULSE 117; RESP 26; O2SAT 96
[2021-09-06] MEDS: PANTOPRAZOLE 40 MG VIAL IV (01:12)
[2021-09-06 01:20] VITALS: BP 130/65; PULSE 116; O2SAT 99
== END 2021-09-06 01:49 | disposition home or self-care (01) ==
PROVIDERS: Emergency Provider Emergency Medicine
DX: R10.9 Unspecified abdominal pain (principal); R11.10 Vomiting, unspecified; R50.9 Fever, unspecified
CPT/HCPCS: 36415; 71045; 74177; 80053; 82550; 82962; 83690; 83735; 84484; 85025; 93005; 96361; 96374; 96375; 99284; C9113; J1170; J2405; J2765

== ENCOUNTER 2021-11-24 10:31 | Emergency (ER) | payer MEDICARE, OTHER, SELFPAY ==
[2021-11-24] VITALS (7 sets, daily range): BP systolic 126–145; BP diastolic 59–68; PULSE 64–89; RESP 11–24; TEMP 37; O2SAT 96–100
--- NOTE | 2021-11-24 11:31 | ED.NAVMDI ---
HPI - Nausea/Vomiting/Diarrhea General Chief complaint: Nausea/Vomiting/Diarrhea Stated complaint: Anxeity, sweats, pain in right ribs Time Seen by Provider: 11/24/21 11:27 Source: patient Mode of arrival: Ambulatory History of Present Illness HPI Narrative: Patient is a 51-year-old female with history of anxiety, gastroparesis, diabetes, HIV fibromyalgia depression presenting today with right-sided rib pain. She says she was on vacation they were outside at a pool when she tripped and fell. She has been having pain on the right side ever since. She says been getting worse she has been taking medication at home for at but is not helping. She is now quite anxious and upset wanting something so her anxiety which she normally takes clonazepam for. She denies fever chills or chest pain. No significant shortness of breath. Related Data Home Medications Medication Instructions Recorded Confirmed prazosin 1 mg capsule (Minipress) 1 mg PO BID ##0 03/10/16 05/01/21 propranolol 80 mg capsule,24 80 mg PO QDAY ##0 03/10/16 05/01/21 hr,extended release albuterol sulfate 90 mcg/actuation 2 puff INH BIDP PRN ##0 09/03/16 05/01/21 aerosol inhaler (Ventolin HFA) bupropion HCl 75 mg tablet 75 mg PO BID ##0 09/03/16 05/01/21 clonazepam 1 mg tablet 1 mg PO TID ##0 09/03/16 05/01/21 fluticasone propionate 50 1 spray intranasal BID ##0 09/03/16 05/01/21 mcg/actuation nasal spray,suspension (Flonase Allergy Relief) abacavir 600 mg-dolutegravir 50 1 tab PO QDAY ##0 11/24/16 05/01/21 mg-lamivudine 300 mg tablet (Triumeq) amitriptyline 50 mg tablet 50 mg PO HS ##0 11/24/16 05/01/21 cetirizine 10 mg tablet 10 mg PO QDAY ##0 11/24/16 05/01/21 dexlansoprazole 60 mg 60 mg PO QDAY ##0 11/24/16 05/01/21 capsule,biphase delayed release (Dexilant) glimepiride 4 mg tablet (Amaryl) 4 mg PO BID ##0 11/24/16 05/01/21 losartan 25 mg tablet 25 mg PO QDAY ##0 11/24/16 05/01/21 metformin 1,000 mg tablet,extended 1,000 mg PO BEDTIME ##0 11/24/16 05/01/21 release 24hr (Fortamet) tiotropium bromide 18 mcg capsule 1 puff INH QDAY ##0 11/24/16 05/01/21 with inhalation device (Spiriva with HandiHaler) atorvastatin 80 mg tablet (Lipitor) 80 mg PO QDAY ##0 12/16/16 05/01/21 metformin 500 mg tablet 500 mg PO DAILY 05/01/20 05/01/21 Previous Rx's Medication Instructions Recorded gabapentin 800 mg tablet 800 mg PO TID ##90 12/27/16 meperidine 100 mg tablet (Demerol) 100 mg PO Q4P #60 tabs 12/27/16 progesterone micronized 100 mg 100 mg PO QDAY #60 caps 08/16/19 capsule (Prometrium) estradiol 2 mg (7.5 mcg/24 hour) 1 vaginalrin vaginal [id number] #1 ea 02/15/20 vaginal ring (Estring) insulin glargine 100 unit/mL (3 25 unit (0.25 mL) SUBCUT QPM #15 mL 05/10/20 mL) subcutaneous pen (Lantus Solostar U-100 Insulin) fluconazole 150 mg tablet 150 mg PO ONCE #2 tabs 05/18/20 clindamycin HCl 300 mg capsule 300 mg PO TID #21 caps 06/07/20 oxycodone 5 mg tablet 5 mg PO Q6H PRN pain #10 tabs 06/07/20 doxycycline hyclate 100 mg tablet 100 mg PO BID #20 tabs 07/08/20 hydrocodone 5 mg-acetaminophen 325 1 tab PO Q6H PRN pain #10 tabs 03/25/21 mg tablet sucralfate 100 mg/mL oral 10 ml PO QID #420 mL 03/25/21 suspension (Carafate) ondansetron 4 mg disintegrating 4 mg PO Q8H PRN nausea and 06/25/21 tablet vomiting #10 tabs pantoprazole 40 mg tablet,delayed 40 mg PO DAILY #30 tabs 06/25/21 release (Protonix) sucralfate 1 gram tablet (Carafate) 1 g PO QACHS before meals, for 07/17/21 stomach barrier #45 tabs metoclopramide HCl 10 mg tablet 10 mg PO Q6H PRN nausea and 09/06/21 (Reglan) vomiting #20 tabs pantoprazole 40 mg tablet,delayed 40 mg PO DAILY #30 tabs 09/06/21 release (Protonix) promethazine 25 mg rectal 25 mg MA Q4-6H PRN nausea and 09/06/21 suppository vomiting #12 ea estradiol 1 mg tablet See Rx Instructions .Route 11/03/21 .COMPLEX #90 tabs hydrocodone 5 mg-acetaminophen 325 1 tab PO Q6H PRN pain #10 tabs 11/24/21 mg tablet hydrocodone 5 mg-acetaminophen 325 1 tab PO Q6H PRN pain #10 tabs 11/24/21 mg tablet hydrocodone 5 mg-acetaminophen 325 1 tab PO Q6H PRN pain #10 tabs 11/24/21 mg tablet Allergies Allergy/AdvReac Type Severity Reaction Status Date / Time levofloxacin [LEVOFLOXACIN] Allergy Severe hives Verified 05/01/21 14:13 Sulfa (Sulfonamide Allergy Severe rash Verified 05/01/21 14:13 Antibiotics) [SULFA (SULFONAMIDE ANTIBIOTICS)] amoxicillin [From AUGMENTIN] Allergy Mild rash Verified 05/01/21 14:13 ciprofloxacin [From CIPRO] Allergy Mild rash Verified 05/01/21 14:13 clarithromycin [From BIAXIN] Allergy Mild rash Verified 05/01/21 14:13 clavulanic acid Allergy Mild rash Verified 05/01/21 14:13 [From AUGMENTIN] morphine [MORPHINE] AdvReac Mild n/v Verified 05/01/21 14:13 pregabalin [PREGABALIN] AdvReac Mild lost voice Verified 05/01/21 14:13 Review of Systems Review of Systems Narrative: GENERAL: Denies chills, fatigue, malaise, fever, sweats, travel HEENT: Denies sinus pain, ear pain, sore throat, difficulty swallowing, neck pain RESPIRATORY: See HPI CARDIOVASCULAR: Denies chest pain, palpitations, orthopnea, edema GASTROINTESTINAL: Denies nausea, vomiting, abdominal pain, diarrhea, constipation, melena. : Denies dysuria, frequency, incontinence, hematuria, urinary retention, flank pain. MUSCULOSKELETAL: Denies weakness, joint pain, or bony pain SKIN: No rash, no erythema, no pruritus NEUROLOGIC: Denies weakness, dizziness, headache, numbness, change in speech, confusion PSYCHIATRIC: No concerning psychosocial issues. 12 point review of systems is negative except for those stated above and HPI Patient History Medical History Anxiety Arthritis Bipolar disorder Depression Diabetes mellitus Fibroids GERD (gastroesophageal reflux disease) History of gastrointestinal symptoms HIV (human immunodeficiency virus infection) Hypertension PTSD (post-traumatic stress disorder) Surgical History History of cystoscopy (2013) History of stress incontinence procedure using tension free vaginal tape (2013) S/P functional endoscopic sinus surgery (2002) Status post arthroscopy (2003) Status post cholecystectomy (2011) Status post laparoscopic supracervical hysterectomy (2011) Family History Father Congestive heart failure Social History Smoking Status: Current every day smoker Smoking Status: Current every day smoker tobacco type: cigarettes alcohol intake frequency: holidays/special occasions only Substance Use Type: marijuana Exam Initial Vital Signs Initial Vital Signs: Vital Signs Temperature 98.6 F 11/24/21 10:35 Pulse Rate 66 11/24/21 10:35 Respiratory Rate 18 11/24/21 10:35 Blood Pressure 145/68 H 11/24/21 10:35 Pulse Oximetry 100 11/24/21 10:35 Oxygen Delivery Method 11/24/21 10:35 GENERAL: Tearful alert but year old female CARDIOVASCULAR: Regular rate and rhythm without murmurs, rubs or gallops. RESPIRATORY: Breath sounds equal bilaterally, no wheezes rales or rhonchi. No paradoxical movement no contusion ABDOMEN: Soft, nontender. Normoactive bowel sounds all 4 quadrants. No guarding or rebound. EXTREMITIES: Normal range of motion, no clubbing or edema. Neurovascularly intact NEUROLOGICAL: Alert and oriented x4.Normal gait and speech. SKIN: Warm, dry, no laceration, no petechiae, no rashes or lesions. Course Orders Ordered: ED Orders 11/24/21 10:40 Complete Blood Count AUTO DIFF Stat Comprehensive Metabolic Panel Stat Lipase Stat Troponin & CK Cardiac Panel Stat 11/24/21 10:42 EKG-12 Lead Routine 11/24/21 11:34 XR ribs RT min 3V w CXR1V Stat 11/24/21 11:36 EKG-12 Lead Stat Discontinued Medications Clonazepam (Clonazepam 0.5 Mg Tablet) 1 mg PO NOW ONE Stop: 11/24/21 12:20 Last Admin: 11/24/21 12:33 Dose: 1 mg Documented By: ABDIAZIZ Sodium Chloride (Normal Saline 0.9%) 1,000 mls @ 150 mls/hr IV CONT MILY Last Infusion: 11/24/21 13:33 Dose: 150 mls/hr Documented By: Admin: 11/24/21 12:34 Dose: 150 mls/hr Documented By: ABDIAZIZ Ketorolac Tromethamine (Ketorolac 30 Mg/Ml Vial) 30 mg IV NOW ONE Stop: 11/24/21 12:20 Last Admin: 11/24/21 12:33 Dose: 30 mg Documented By: ABDIAZIZ Vital Signs Vital signs: Vital Signs - 8 hr 11/24/21 10:35 11/24/21 10:38 11/24/21 11:00 Temperature 98.6 F Pulse Rate 66 64 Respiratory Rate 18 11 L Blood Pressure 145/68 H 126/61 Pulse Oximetry 100 100 Oxygen Delivery Method Room Air 11/24/21 11:00 11/24/21 11:30 11/24/21 11:30 Temperature Pulse Rate 87 75 Respiratory Rate 15 22 Blood Pressure 144/59 H Pulse Oximetry 98 99 Oxygen Delivery Method 11/24/21 12:00 11/24/21 12:30 11/24/21 13:00 Temperature Pulse Rate 68 89 67 Respiratory Rate 20 15 24 Blood Pressure Pulse Oximetry 96 97 Oxygen Delivery Method MDM - Nausea/Vomiting/Diarrhea Lab Data Result diagrams: 11/24/21 10:40 11/24/21 10:40 Labs: Lab Results 11/24/21 11/24/21 Range/Units 10:40 10:40 WBC 11.8 H (4.5-11.0) X10^3/uL RBC 5.07 (4.0-5.2) X10^6/uL Hgb 15.1 (12.0-16.0) g/dL Hct 45.3 (36-46) % MCV 89.4 (80-100) fL MCH 29.8 (26-34) PG MCHC 33.3 (30-36) % RDW 14.5 (11.6-14.8) % Plt Count 306 (150-400) X10^3/uL Neut % (Auto) 72.1 (50-75) % Lymph % (Auto) 22.8 L (25-40) % [place] % (Auto) 3.2 (3-14) % Eos % (Auto) 1.3 L (2-4) % Baso % (Auto) 0.6 (0-2) % Neut # (Auto) 8500 H (3703-5030) /uL Lymph # (Auto) 2700 (3753-0953) /uL [place] # (Auto) 400 (0-900) /uL Eos # (Auto) 200 (0-450) /uL Baso # (Auto) 100 (0-100) /uL Sodium 141 (137-145) mmol/L Potassium 4.0 (3.4-5.1) mmol/L Chloride 102 (98-107) mmol/L Carbon Dioxide 28 (22-32) mmol/L BUN 7 (7-17) mg/dL Creatinine 0.82 (0.52-1.04) mg/dL Estimated GFR > 60 (>60) mL/min BUN/Creatinine Ratio 8.5 (6-22) Glucose 192 H (70-100) mg/dL Calcium 9.5 (8.4-10.2) mg/dL Total Bilirubin 0.5 (0.2-1.3) mg/dL AST 22 (14-36) IU/L ALT 13 (<35) IU/L Alkaline Phosphatase 86 (38-126) U/L Total Creatine Kinase 31 (30-135) U/L CK-MB (CK-2) TNP CK-MB (CK-2) Rel Index TNP Troponin I < 0.012 (0.01-0.034) ng/mL Total Protein 8.3 H (6.3-8.2) g/dL Albumin 4.6 (3.5-5.0) g/dL Globulin 3.7 (1.7-4.1) g/dL Albumin/Globulin Ratio 1.2 (1.0-2.8) Lipase 153 (23-300) U/L Imaging Data Chest x-ray: Radiologist's Impression: XRay Report Signed Patient: Shelbie Purdy MR#: [id number] : 1970 Acct:[id number] Age/Sex: 51 / F Date of Service: 11/24/21 Loc: ED Accession Number: [id number] ?? Procedure: XR ribs RT min 3V w CXR1V Ordering Provider: Daisy Crain D.O. PROCEDURE:? XR RIBS RT MIN 3V W CXR 1V ? INDICATIONS:? pain fall ? TECHNIQUE:? 2 views of the right ribs were acquired, along with a single view chest.? ? COMPARISON:? [facility], CR, XR CHEST 1V, 09/05/2021, 20:57. ? FINDINGS:? ? Surgical changes and devices:? Cholecystectomy clips are seen.? ? Bones and chest wall:? No fractures or dislocations.? No suspicious bony lesions.? Overlying soft tissues appear unremarkable.? Age-appropriate bony degenerative changes are seen.? ? Lungs and pleura:? No pleural effusions or pneumothorax.? Lungs appear clear.? ? Mediastinum:? Mediastinal contours appear normal.? Heart size is normal.? IMPRESSION:? ? No rib fracture can be seen. ? No pneumothorax is seen. ? ? Dictated by: Alex Love M.D. on 11/24/2021 at 12:09 ? ? ECG Data Interpretation: Normal sinus rhythm rate 71 MA interval 126 You RSA [address] changes similar to previous MDM Narrative Medical decision making narrative: The patient's blood work is overall reassuring x-ray does not show any fracture or pneumothorax. At this time likely a rib contusion .l pain is significantly improved on so is her anxiety. She is requesting something a little bit stronger for pain. Discharge Plan Departure Patient Disposition: Home Clinical Impression: Contusion of rib on right side Instructions: DI for Rib Contusion Activity Restrictions/Additional Instructions: *You have been diagnosed with right-sided rib contusion *What to do: At this time blood work and x-ray were overall reassuring. You may try and splint your ribs. I do not recommend wrapping your ribs this can increase risk for pneumonia *Continue to take medications as directed--> SENT TO [facility] [place] Ibuprofen 600 mg every 6 hours if needed for [id number] pain [place] 1 tablet every 6 hours only if needed for severe pain for to help sleep *Follow up with your primary care provider in 2-3 days or call [phone] *Return to ER if you should have increasing pain, shortness of breath, or any new, worsening or concerning symptoms CONTROLLED SUBSTANCE DISCHARGE (Narcotoic/benzodiazepine/Flexeril/Phenergan) 1. You have been prescribed narcotic medications, it does have acetaminophen/Tylenol/paracetamol in it, DO NOT TAKE MORE THAN 4,00mg in 24 hours of Tylenol. TRAMADOL DOES NOT CONTAIN TYLENOL 2. Please understand that we cannot provide further refills of narcotics, benzodiazepines or controlled substances through the ED and her pain management will need to be through your provider. 3. While on these medications you cannot drive or operate heavy machinery. 4. You cannot sign legal documents or perform any duties such as this. 5. As long as you're taking opiate pain medications he should also be taking a stool softener such as Colace, Dulcolax, MiraLAX or prune juice, to help avoid constipation. Prescriptions: New hydrocodone-acetaminophen 5-325 mg tablet 1 tab PO Q6H PRN (Reason: pain) Qty: 10 0RF hydrocodone-acetaminophen 5-325 mg tablet 1 tab PO Q6H PRN (Reason: pain) Qty: 10 0RF hydrocodone-acetaminophen 5-325 mg tablet 1 tab PO Q6H PRN (Reason: pain) Qty: 10 0RF No Action fluconazole 150 mg tablet 150 mg PO ONCE Qty: 2 0RF Rx Instructions: Repeat in 72 hours if still symptomatic propranolol 80 MG capsule,extended release 24 hr 80 mg PO QDAY Qty: 0 prazosin [Minipress] 1 MG capsule 1 mg PO BID Qty: 0 bupropion HCl 75 MG tablet 75 mg PO BID Qty: 0 albuterol sulfate [Ventolin HFA] 90 MCG/PUFF HFA aerosol inhaler 2 puff INH BIDP PRNQty: 0 clonazepam 1 MG tablet 1 mg PO TID Qty: 0 fluticasone propionate [Flonase Allergy Relief] 9.9 ML spray,suspension 1 spray Intranasal BID Qty: 0 [id number] [Triumeq] 1 EACH tablet 1 tab PO QDAY Qty: 0 dexlansoprazole [Dexilant] 60 MG capsule,biphase delayed releas 60 mg PO QDAY Qty: 0 amitriptyline 50 MG tablet 50 mg PO HS Qty: 0 cetirizine 10 MG tablet 10 mg PO QDAY Qty: 0 glimepiride [Amaryl] 4 MG tablet 4 mg PO BID Qty: 0 losartan 25 MG tablet 25 mg PO QDAY Qty: 0 metformin [Fortamet] 1,000 MG tablet extended release 24hr 1,000 mg PO BEDTIME Qty: 0 tiotropium bromide [Spiriva with HandiHaler] 18 MCG capsule, w/inhalation device 1 puff INH QDAY Qty: 0 atorvastatin [Lipitor] 80 MG tablet 80 mg PO QDAY Qty: 0 gabapentin 800 MG tablet 800 mg PO TID Qty: 90 1RF meperidine [Demerol] 100 MG tablet 100 mg PO Q4P Qty: 60 0RF progesterone micronized [Prometrium] 100 mg capsule 100 mg PO QDAY Qty: 60 0RF Rx Instructions: Please schedule appointment for refills. Estring 2 mg (7.5 mcg /24 hour) ring 1 vaginalrin VAG [id number] Qty: 1 4RF estradiol 1 mg tablet See Rx Instructions .ROUTE .COMPLEX Qty: 90 3RF Dose Instruction: TAKE 1 TABLET BY MOUTH EVERY DAY Rx Instructions: TAKE 1 TABLET BY MOUTH EVERY DAY oxycodone 5 mg tablet 5 mg PO Q6H PRN (Reason: pain) Qty: 10 0RF clindamycin HCl 300 mg capsule 300 mg PO TID Qty: 21 0RF sucralfate [Carafate] 100 mg/mL suspension 10 ml PO QID Qty: 420 0RF Rx Instructions: swish in mouth and swallow; use after food/drink hydrocodone-acetaminophen 5-325 mg tablet 1 tab PO Q6H PRN (Reason: pain) Qty: 10 0RF promethazine 25 mg suppository 25 mg MA Q4-6H PRN (Reason: nausea and vomiting) Qty: 12 0RF pantoprazole [Protonix] 40 mg tablet,delayed release (DR/EC) 40 mg PO DAILY Qty: 30 0RF metoclopramide HCl [Reglan] 10 mg tablet 10 mg PO Q6H PRN (Reason: nausea and vomiting) Qty: 20 0RF metformin 500 mg Tablet 500 mg PO DAILY Rx Instructions: take in the morning Lantus Solostar U-100 Insulin 100 unit/mL (3 mL) insulin pen 25 unit SUBCUT QPM Qty: 15 0RF doxycycline hyclate 100 mg tablet 100 mg PO BID Qty: 20 0RF pantoprazole [Protonix] 40 mg tablet,delayed release (DR/EC) 40 mg PO DAILY Qty: 30 0RF ondansetron 4 mg tablet,disintegrating 4 mg PO Q8H PRN (Reason: nausea and vomiting) Qty: 10 0RF sucralfate [Carafate] 1 gram tablet 1 g PO QACHS Qty: 45 0RF Visit Report Forms: Patient Portal/API
--- NOTE | 2021-11-24 11:34 | DI.RAD.S_ITS ---
PROCEDURE: XR RIBS RT MIN 3V W CXR 1V INDICATIONS: pain fall TECHNIQUE: 2 views of the right ribs were acquired, along with a single view chest. COMPARISON: [facility], , XR CHEST 1V, 09/05/2021, 20:57. FINDINGS: Surgical changes and devices: Cholecystectomy clips are seen. Bones and chest wall: No fractures or dislocations. No suspicious bony lesions. Overlying soft tissues appear unremarkable. Age-appropriate bony degenerative changes are seen. Lungs and pleura: No pleural effusions or pneumothorax. Lungs appear clear. Mediastinum: Mediastinal contours appear normal. Heart size is normal. IMPRESSION: No rib fracture can be seen. No pneumothorax is seen. Dictated by: Alex Love M.D. on 11/24/2021 at 12:09 Approved by: Alex Love M.D. on 11/24/2021 at 12:10
[2021-11-24 11:55] LABS: Alanine Aminotransferase 13 IU/L (<35); Albumin 4.6 g/dL (3.5-5.0); Albumin Globulin Ratio 1.2 (1.0-2.8); Alkaline Phosphatase 86 U/L (38-126); Aspartate Aminotransferase 22 IU/L (14-36); BUN Creatinine Ratio 8.5 (6-22); Bilirubin Total 0.5 mg/dL (0.2-1.3); Blood Urea Nitrogen 7 mg/dL (7-17); Calcium 9.5 mg/dL (8.4-10.2); Carbon Dioxide 28 mmol/L (22-32); Chloride 102 mmol/L (98-107); Creatine Kinase 31 U/L (30-135); Estimated Glomerular Filt Rate > 60 mL/min (>60); Globulin 3.7 g/dL (1.7-4.1); Glucose 192 mg/dL (70-100); HEMOLYSIS < 15 (0-50); Lipase 153 U/L (23-300); Sodium 141 mmol/L (137-145); Total Protein 8.3 g/dL (6.3-8.2)
[2021-11-24 11:57] LABS: Add Manual Diff / Slide Review NO; Basophils Absolute Auto 100 /uL (0-100); Basophils Percent Auto 0.6 % (0-2); Eosinophils Absolute Auto 200 /uL (0-450); Eosinophils Percent Auto 1.3 % (2-4); Hematocrit 45.3 % (36-46); Hemoglobin 15.1 g/dL (12.0-16.0); Lymphocytes Absolute Auto 2700 /uL (1100-4500); Lymphocytes Percent Auto 22.8 % (25-40); Mean Corpuscular HGB Conc 33.3 % (30-36); Mean Corpuscular Hemoglobin 29.8 PG (26-34); Mean Corpuscular Volume 89.4 fL (80-100); Monocytes Absolute Auto 400 /uL (0-900); Monocytes Percent Auto 3.2 % (3-14); Neutrophils Absolute Auto 8500 /uL (1500-7000); Neutrophils Percent Auto 72.1 % (50-75); Platelet Count 306 X10^3/uL (150-400); Red Blood Cell Count 5.07 X10^6/uL (4.0-5.2); Red Cell Distribution Width 14.5 % (11.6-14.8); White Blood Cell Count 11.8 X10^3/uL (4.5-11.0)
[2021-11-24 12:06] LABS: Troponin I < 0.012 ng/mL (0.01-0.034)
[2021-11-24] MEDS: KETOROLAC 30 MG/ML VIAL IV (12:33)
[2021-11-24] MEDS: clonazePAM 0.5 MG TABLET 1 MG PO (12:33)
[2021-11-24] MEDS: SODIUM CHLORIDE 0.9% 1,000 ML 150 ML IV (12:34)
--- NOTE | 2021-11-24 13:40 | PC.NURSE ---
chills, anxiety, chest pain, dizziness, and nausea
== END 2021-11-24 13:41 | disposition home or self-care (01) ==
PROVIDERS: Emergency Provider Emergency Medicine
DX: S20.211A Contusion of right front wall of thorax, initial encounter (principal); W19.XXXA Unspecified fall, initial encounter
CPT/HCPCS: 36415; 71101; 80053; 82550; 83690; 84484; 85025; 93005; 96361; 96374; 99284; J1885

== ENCOUNTER 2022-02-04 21:06 | Emergency (ER) | payer MEDICARE, OTHER, SELFPAY ==
[2022-02-04] VITALS (7 sets, daily range): BP systolic 105–132; BP diastolic 56–72; PULSE 75–89; RESP 12–18; TEMP 36.4; O2SAT 95–98; BMI 25.8
--- NOTE | 2022-02-04 21:21 | DI.RAD.S_ITS ---
PROCEDURE: XR CHEST 1V INDICATIONS: chest pain TECHNIQUE: One view of the chest was acquired. COMPARISON: [facility], CR, XR CHEST 1V, 09/05/2021, 20:57. FINDINGS: Surgical changes and devices: None. Lungs and pleura: Lungs are clear. No pleural effusions or pneumothorax. Mediastinum: Mediastinal contours appear normal. Heart size is normal. Bones and chest wall: No suspicious bony lesions. Overlying soft tissues appear unremarkable. IMPRESSION: 1. No acute cardiopulmonary disease. Dictated by: Hossein Scott M.D. on 02/04/2022 at 23:01 Approved by: Hossein Scott M.D. on 02/04/2022 at 23:02
[2022-02-04 21:32] LABS: Add Manual Diff / Slide Review NO; Basophils Absolute Auto 100 /uL (0-100); Basophils Percent Auto 1.1 % (0-2); Eosinophils Absolute Auto 300 /uL (0-450); Eosinophils Percent Auto 2.7 % (2-4); Hemoglobin 14.7 g/dL (12.0-16.0); Lymphocytes Absolute Auto 4500 /uL (1100-4500); Lymphocytes Percent Auto 46.6 % (25-40); Mean Corpuscular HGB Conc 33.4 % (30-36); Mean Corpuscular Hemoglobin 30.3 PG (26-34); Mean Corpuscular Volume 90.7 fL (80-100); Monocytes Absolute Auto 400 /uL (0-900); Monocytes Percent Auto 4.3 % (3-14); Neutrophils Absolute Auto 4400 /uL (1500-7000); Neutrophils Percent Auto 45.3 % (50-75); Platelet Count 262 X10^3/uL (150-400); Red Blood Cell Count 4.86 X10^6/uL (4.0-5.2); Red Cell Distribution Width 15.1 % (11.6-14.8); White Blood Cell Count 9.7 X10^3/uL (4.5-11.0)
[2022-02-04 21:43] LABS: Alanine Aminotransferase 13 IU/L (<35); Albumin 4.5 g/dL (3.5-5.0); Albumin Globulin Ratio 1.1 (1.0-2.8); Alkaline Phosphatase 70 U/L (38-126); Aspartate Aminotransferase 19 IU/L (14-36); BUN Creatinine Ratio 8.2 (6-22); Bilirubin Total 0.4 mg/dL (0.2-1.3); Blood Urea Nitrogen 7 mg/dL (7-17); Calcium 9.5 mg/dL (8.4-10.2); Carbon Dioxide 30 mmol/L (22-32); Chloride 101 mmol/L (98-107); Creatine Kinase 58 U/L (30-135); Estimated Glomerular Filt Rate > 60 mL/min (>60); Glucose 171 mg/dL (70-100); HEMOLYSIS < 15 (0-50); Lipase 136 U/L (23-300); Magnesium 1.6 mg/dL (1.6-2.3); Potassium 4.1 mmol/L (3.4-5.1); Sodium 141 mmol/L (137-145); Total Protein 8.5 g/dL (6.3-8.2)
[2022-02-04 21:54] LABS: Troponin I < 0.012 ng/mL (0.01-0.034)
--- NOTE | 2022-02-04 22:51 | ED_ITS ---
HPI - Chest Pain General Chief Complaint: Chest Pain Stated Complaint: blood sugars keep dropping, can't keep them up Time Seen by Provider: 02/04/22 22:51 Source: patient Mode of arrival: Ambulatory Limitations: no limitations History of Present Illness HPI narrative: Patient is a 51-year-old female history of type 1 diabetes, HIV which is well controlled, 5 mm myalgia presenting today with low glucose. He states she was out getting her hair done from 11:30a-7:30p, it is a nice shade of blue, they went to been area to get something to eat. At some point she checked her glucose and it was 60. Tried eating at [employer], but still didn't feel right. Glucose in triage is 178. sHe started having him epigastric like pain and chest pain. Denies any nausea or vomiting no shortness of breath. Glucose monitor does not seem to be working. Related Data Home Medications Medication Instructions Recorded Confirmed prazosin 1 mg capsule (Minipress) 1 mg PO BID ##0 03/10/16 05/01/21 propranolol 80 mg capsule,24 80 mg PO QDAY ##0 03/10/16 05/01/21 hr,extended release albuterol sulfate 90 mcg/actuation 2 puff INH BIDP PRN ##0 09/03/16 05/01/21 aerosol inhaler (Ventolin HFA) bupropion HCl 75 mg tablet 75 mg PO BID ##0 09/03/16 05/01/21 clonazepam 1 mg tablet 1 mg PO TID ##0 09/03/16 05/01/21 fluticasone propionate 50 1 spray intranasal BID ##0 09/03/16 05/01/21 mcg/actuation nasal spray,suspension (Flonase Allergy Relief) abacavir 600 mg-dolutegravir 50 1 tab PO QDAY ##0 11/24/16 05/01/21 mg-lamivudine 300 mg tablet (Triumeq) amitriptyline 50 mg tablet 50 mg PO HS ##0 11/24/16 05/01/21 cetirizine 10 mg tablet 10 mg PO QDAY ##0 11/24/16 05/01/21 dexlansoprazole 60 mg 60 mg PO QDAY ##0 11/24/16 05/01/21 capsule,biphase delayed release (Dexilant) glimepiride 4 mg tablet (Amaryl) 4 mg PO BID ##0 11/24/16 05/01/21 losartan 25 mg tablet 25 mg PO QDAY ##0 11/24/16 05/01/21 metformin 1,000 mg tablet,extended 1,000 mg PO BEDTIME ##0 11/24/16 05/01/21 release 24hr (Fortamet) tiotropium bromide 18 mcg capsule 1 puff INH QDAY ##0 11/24/16 05/01/21 with inhalation device (Spiriva with HandiHaler) atorvastatin 80 mg tablet (Lipitor) 80 mg PO QDAY ##0 12/16/16 05/01/21 metformin 500 mg tablet 500 mg PO DAILY 05/01/20 05/01/21 Previous Rx's Medication Instructions Recorded gabapentin 800 mg tablet 800 mg PO TID ##90 12/27/16 meperidine 100 mg tablet (Demerol) 100 mg PO Q4P #60 tabs 12/27/16 progesterone micronized 100 mg 100 mg PO QDAY #60 caps 08/16/19 capsule (Prometrium) estradiol 2 mg (7.5 mcg/24 hour) 1 vaginalrin vaginal [id number] #1 ea 02/15/20 vaginal ring (Estring) insulin glargine 100 unit/mL (3 25 unit (0.25 mL) SUBCUT QPM #15 mL 05/10/20 mL) subcutaneous pen (Lantus Solostar U-100 Insulin) fluconazole 150 mg tablet 150 mg PO ONCE #2 tabs 05/18/20 clindamycin HCl 300 mg capsule 300 mg PO TID #21 caps 06/07/20 oxycodone 5 mg tablet 5 mg PO Q6H PRN pain #10 tabs 06/07/20 doxycycline hyclate 100 mg tablet 100 mg PO BID #20 tabs 07/08/20 hydrocodone 5 mg-acetaminophen 325 1 tab PO Q6H PRN pain #10 tabs 03/25/21 mg tablet sucralfate 100 mg/mL oral 10 ml PO QID #420 mL 03/25/21 suspension (Carafate) ondansetron 4 mg disintegrating 4 mg PO Q8H PRN nausea and 06/25/21 tablet vomiting #10 tabs pantoprazole 40 mg tablet,delayed 40 mg PO DAILY #30 tabs 06/25/21 release (Protonix) sucralfate 1 gram tablet (Carafate) 1 g PO QACHS before meals, for 07/17/21 stomach barrier #45 tabs metoclopramide HCl 10 mg tablet 10 mg PO Q6H PRN nausea and 09/06/21 (Reglan) vomiting #20 tabs pantoprazole 40 mg tablet,delayed 40 mg PO DAILY #30 tabs 09/06/21 release (Protonix) promethazine 25 mg rectal 25 mg DE Q4-6H PRN nausea and 09/06/21 suppository vomiting #12 ea estradiol 1 mg tablet See Rx Instructions .Route 11/03/21 .COMPLEX #90 tabs hydrocodone 5 mg-acetaminophen 325 1 tab PO Q6H PRN pain #10 tabs 11/24/21 mg tablet hydrocodone 5 mg-acetaminophen 325 1 tab PO Q6H PRN pain #10 tabs 11/24/21 mg tablet hydrocodone 5 mg-acetaminophen 325 1 tab PO Q6H PRN pain #10 tabs 11/24/21 mg tablet Allergies Allergy/AdvReac Type Severity Reaction Status Date / Time levofloxacin [LEVOFLOXACIN] Allergy Severe hives Verified 02/04/22 21:12 Sulfa (Sulfonamide Allergy Severe rash Verified 02/04/22 21:12 Antibiotics) [SULFA (SULFONAMIDE ANTIBIOTICS)] amoxicillin [From AUGMENTIN] Allergy Mild rash Verified 02/04/22 21:12 ciprofloxacin [From CIPRO] Allergy Mild rash Verified 02/04/22 21:12 clarithromycin [From BIAXIN] Allergy Mild rash Verified 02/04/22 21:12 clavulanic acid Allergy Mild rash Verified 02/04/22 21:12 [From AUGMENTIN] morphine [MORPHINE] AdvReac Mild n/v Verified 02/04/22 21:12 pregabalin [PREGABALIN] AdvReac Mild lost voice Verified 02/04/22 21:12 Review of Systems Review of Systems Narrative: GENERAL: Denies chills, fatigue, malaise, fever, sweats, travel HEENT: Denies sinus pain, ear pain, sore throat, difficulty swallowing, neck p ain RESPIRATORY: Denies dyspnea, cough, wheezing, hemoptysis, sputum. CARDIOVASCULAR: Chest pain GASTROINTESTINAL: Epigastric pain : Denies dysuria, frequency, incontinence, hematuria, urinary retention, flank pain. MUSCULOSKELETAL: Denies weakness, joint pain, or bony pain SKIN: No rash, no erythema, no pruritus NEUROLOGIC: Denies weakness, dizziness, headache, numbness, change in speech, confusion PSYCHIATRIC: No concerning psychosocial issues. 12 point review of systems is negative except for those stated above and HPI Patient History Medical History Anxiety Arthritis Bipolar disorder Depression Diabetes mellitus Fibroids GERD (gastroesophageal reflux disease) History of gastrointestinal symptoms HIV (human immunodeficiency virus infection) Hypertension PTSD (post-traumatic stress disorder) Surgical History History of cystoscopy (2013) History of stress incontinence procedure using tension free vaginal tape (2013) S/P functional endoscopic sinus surgery (2002) Status post arthroscopy (2003) Status post cholecystectomy (2011) Status post laparoscopic supracervical hysterectomy (2011) Family History Father Congestive heart failure Social History Smoking Status: Current every day smoker Smoking Status: Current every day smoker tobacco type: cigarettes alcohol intake frequency: holidays/special occasions only Substance Use Type: marijuana Exam Initial Vital Signs Initial Vital Signs: Vital Signs Temperature 97.5 F L 02/04/22 21:12 Pulse Rate 89 02/04/22 21:12 Respiratory Rate 18 02/04/22 21:12 Blood Pressure 119/68 02/04/22 21:12 Pulse Oximetry 98 02/04/22 21:12 Oxygen Delivery Method 02/04/22 21:12 GENERAL: Alert 51-year-old female appears uncomfortable HEENT: Head atraumatic,EOMI, pupils reactive, face symmetric, moist mucous membranes CARDIOVASCULAR: Regular rate and rhythm without murmurs, rubs or gallops. RESPIRATORY: Breath sounds equal bilaterally, no wheezes rales or rhonchi. ABDOMEN: Soft, epigastric pain mild right upper quadrant pain pain across upper abdomen into the left as well. EXTREMITIES: Normal range of motion, no clubbing or edema. Neurovascularly intact NEUROLOGICAL: Alert and oriented x4.Normal gait and speech. SKIN: Warm, dry, no laceration, no petechiae, no rashes or lesions. Course Orders Ordered: ED Orders 02/04/22 21:20 Complete Blood Count AUTO DIFF Stat Comprehensive Metabolic Panel Stat Lipase Stat Magnesium Stat Troponin & CK Cardiac Panel Stat 02/04/22 21:21 XR chest 1V Stat EKG-12 Lead Stat 02/04/22 23:05 Troponin I Stat EKG-12 Lead Stat 02/04/22 23:36 CT abdomen pelvis w con Stat Discontinued Medications Hydromorphone HCl (Hydromorphone 0.5 Mg Inj) 0.5 mg IV NOW ONE Stop: 02/04/22 23:15 Last Admin: 02/04/22 23:28 Dose: 0.5 mg Documented By: CHANELLE Hydromorphone HCl (Hydromorphone 1 Mg Inj) 1 mg IV NOW ONE Stop: 02/05/22 01:11 Last Admin: 02/05/22 01:33 Dose: 1 mg Documented By: CHANELLE Pantoprazole Sodium (Pantoprazole 40 Mg Vial) 40 mg IV NOW ONE Stop: 02/04/22 23:15 Last Admin: 02/04/22 23:28 Dose: 40 mg Documented By: CHANELLE Vital Signs Vital signs: Vital Signs - 8 hr 02/04/22 21:12 02/04/22 21:41 02/04/22 21:42 Temperature 97.5 F L Pulse Rate 89 79 Respiratory Rate 18 Blood Pressure 119/68 117/72 Pulse Oximetry 98 97 Oxygen Delivery Method Room Air 02/04/22 21:42 02/04/22 22:00 02/04/22 22:00 Temperature Pulse Rate 84 82 Respiratory Rate 15 Blood Pressure 116/56 L Pulse Oximetry 96 95 Oxygen Delivery Method 02/04/22 22:30 02/04/22 22:30 02/04/22 23:00 Temperature Pulse Rate 80 Respiratory Rate 12 Blood Pressure 115/61 105/59 L Pulse Oximetry 96 Oxygen Delivery Method 02/04/22 23:00 02/04/22 23:30 02/04/22 23:30 Temperature Pulse Rate 79 75 Respiratory Rate 18 12 Blood Pressure 132/62 Pulse Oximetry 97 98 Oxygen Delivery Method 02/05/22 00:00 02/05/22 00:30 02/05/22 01:00 Temperature Pulse Rate 67 72 72 Respiratory Rate Blood Pressure Pulse Oximetry 99 97 95 Oxygen Delivery Method 02/05/22 01:30 02/05/22 01:35 02/05/22 01:35 Temperature Pulse Rate 71 76 Respiratory Rate Blood Pressure 113/58 L Pulse Oximetry 95 98 Oxygen Delivery Method MDM - Chest Pain Lab Data Result diagrams: 02/04/22 21:20 02/04/22 21:20 Labs: Lab Results 02/04/22 02/04/22 02/04/22 Range/Units 21:20 21:20 23:05 WBC 9.7 (4.5-11.0) X10^3/uL RBC 4.86 (4.0-5.2) X10^6/uL Hgb 14.7 (12.0-16.0) g/dL Hct 44.0 (36-46) % MCV 90.7 (80-100) fL MCH 30.3 (26-34) PG MCHC 33.4 (30-36) % RDW 15.1 H (11.6-14.8) % Plt Count 262 (150-400) X10^3/uL Neut % (Auto) 45.3 L (50-75) % Lymph % (Auto) 46.6 H (25-40) % [place] % (Auto) 4.3 (3-14) % Eos % (Auto) 2.7 (2-4) % Baso % (Auto) 1.1 (0-2) % Neut # (Auto) 4400 (4827-9068) /uL Lymph # (Auto) 4500 (3960-0231) /uL [place] # (Auto) 400 (0-900) /uL Eos # (Auto) 300 (0-450) /uL Baso # (Auto) 100 (0-100) /uL Sodium 141 (137-145) mmol/L Potassium 4.1 (3.4-5.1) mmol/L Chloride 101 (98-107) mmol/L Carbon Dioxide 30 (22-32) mmol/L BUN 7 (7-17) mg/dL Creatinine 0.85 (0.52-1.04) mg/dL Estimated GFR > 60 (>60) mL/min BUN/Creatinine Ratio 8.2 (6-22) Glucose 171 H (70-100) mg/dL Calcium 9.5 (8.4-10.2) mg/dL Magnesium 1.6 (1.6-2.3) mg/dL Total Bilirubin 0.4 (0.2-1.3) mg/dL AST 19 (14-36) IU/L ALT 13 (<35) IU/L Alkaline Phosphatase 70 (38-126) U/L Total Creatine Kinase 58 (30-135) U/L CK-MB (CK-2) TNP CK-MB (CK-2) Rel Index TNP Troponin I < 0.012 < 0.012 (0.01-0.034) ng/mL Total Protein 8.5 H (6.3-8.2) g/dL Albumin 4.5 (3.5-5.0) g/dL Globulin 4.0 (1.7-4.1) g/dL Albumin/Globulin Ratio 1.1 (1.0-2.8) Lipase 136 (23-300) U/L Imaging Data Chest x-ray: Radiologist's Impression: Signed Patient: Aj Ray KMR#: [id number]: 01/21/2017Acct:[id number]/Sex: 5Y 00M / MDate of Service: 02/04/22Loc: EDAccession Number: [id number] Procedure: XR femur RT min 2V Ordering Provider: Daisy Crain D.O. PROCEDURE: XR FEMUR RT MIN 2V INDICATIONS: heavily limping TECHNIQUE: 2 views of the femur were acquired. COMPARISON: None. FINDINGS: Bones: No displaced fractures or dislocations. Visualized growth plates demo nstrate preserved alignment. No suspicious bony lesions. Soft tissues: No suspicious soft tissue calcifications or masses. IMPRESSION: 1. No displaced fracture or dislocation. Dictated by: Hossein Scott M.D. on 02/04/2022 at 22:15 Approved by: Hossein Scott M.D. on 02/04/2022 at 22:17 CT scan - abdomen/pelvis: Radiologist's Impression: PROCEDURE:? CT ABDOMEN PELVIS W CON ? INDICATIONS:? Epigastric pain ? TECHNIQUE:? After the administration of IV contrast, axial sections were acquired from the lung bases to the pubic symphysis.? Coronal and sagittal reformats were performed.? For radiation dose reduction, the following was used:? automated exposure control, adjustment of mA and/or kV according to patient size. ? COMPARISON:? [facility], CT, CT ABDOMEN PELVIS W CON, 09/05/2021, 23:37. ? FINDINGS:? Image quality:? Excellent.? ? Lung bases:? There is minimal dependent atelectasis.? ? Heart:? Heart is normal in size. ? ? ABDOMEN: Liver:? There is a cystic lesion redemonstrated within the right hepatic lobe measuring up to 1.5 cm.? A few additional scattered low-density foci are demonstrated within the liver which are too small to characterize but likely represent cysts. Gallbladder:? Surgically absent. Biliary ducts:? No biliary ductal dilatation.? ? Pancreas:? Unremarkable.? ? Spleen:? Normal in size.? ? Adrenal Glands:? No adrenal nodules.? ? Kidneys and Ureters:? No hydronephrosis.? There are bilateral nonobstructing renal stones, with a 0.3 cm stone in the inferior pole the right kidney? and 2 stones in the inferior pole of the left kidney measuring up to 0.7 cm and 0.4 cm.? The largest stone demonstrates attenuation values of approximately 600-700 Hounsfield units.? There is nonspecific perinephric stranding bilaterally.? ? Stomach and Bowel:? Stomach, small bowel loops, and colon are normal in caliber and wall thickness.? The appendix is normal in appearance.? Peritoneum:? No abnormal intraperitoneal fluid.? No free air.? ? Ventral Wall: ? No hernia.? Abdominal Nodes:? No retroperitoneal or mesenteric adenopathy by size criteria.? Vessels:? Aorta and inferior vena cava are normal in size.? ? PELVIS: Pelvic Organs:? Unremarkable.? ? Bladder:? Unremarkable.? ? Pelvic Nodes: No enlarged lymph nodes.? Miscellaneous: No inguinal hernias are seen. ? ? ? Bones:? Postsurgical changes are redemonstrated status post posterior fixation at L5-S1.? Minimal anterolisthesis at L5-S1 appears unchanged.? Visualized osseous structures demonstrate no suspicious focal lesions. ? IMPRESSION:? ? 1. Bilateral nephrolithiasis without evidence of obstructive uropathy. ? 2. No evidence of appendicitis. ? 3. No CT evidence of acute pancreatitis.? ? ? Dictated by: Hossein Scott M.D. on 02/05/2022 at 0:47? ECG Data Interpretation: 1. Sinus rhythm rate 82 DE interval 150 QRS [address] changes T-wave inversion 2. Normal sinus rhythm rate 78 DE interval 150 QRS [address] changes no T-wave inversions previous EKG MDM Narrative Medical decision making narrative: Patient's glucometer does not seem to be working but she is not hypoglycemic. She continues to have some epigastric pain CT is negative she has 2- troponins. sHe has been seen here previously for something similar, and no etiology was found.. CT does show bilateral nephrolithiasis, but this time unlikely to be causing her pain. No nausea or vomiting. I discussed with both her and that she needs a new glucometer or continuous glucometer. They understand and agree. We discussed warning signs and symptoms of hypoglycemia and when to ret urn to the ED. Discharge Plan Departure Patient Disposition: Home Clinical Impression: Abdominal pain, Diabetes Instructions: DI for Abdominal Pain-Adult, DI for Diabetes Type 1 -- Adult Activity Restrictions/Additional Instructions: *You have been diagnosed with diabetes in abdominal pain *What to do: At this time you do need to get a new glucometer continuous monitor. For now please go based on symptoms if really getting confused give her sugar. It is okay to check with your glucometer to see what it says. *Continue to take medications as directed *Follow up with your primary care provider in 2-3 days or call [phone] *Return to ER if you should have increasing pain chest pain shortness of breath low glucose or any new, worsening or concerning symptoms Prescriptions: No Action fluconazole 150 mg tablet 150 mg PO ONCE Qty: 2 0RF Rx Instructions: Repeat in 72 hours if still symptomatic propranolol 80 MG capsule,extended release 24 hr 80 mg PO QDAY Qty: 0 prazosin [Minipress] 1 MG capsule 1 mg PO BID Qty: 0 bupropion HCl 75 MG tablet 75 mg PO BID Qty: 0 albuterol sulfate [Ventolin HFA] 90 MCG/PUFF HFA aerosol inhaler 2 puff INH BIDP PRNQty: 0 clonazepam 1 MG tablet 1 mg PO TID Qty: 0 fluticasone propionate [Flonase Allergy Relief] 9.9 ML spray,suspension 1 spray Intranasal BID Qty: 0 [id number] [Triumeq] 1 EACH tablet 1 tab PO QDAY Qty: 0 dexlansoprazole [Dexilant] 60 MG capsule,biphase delayed releas 60 mg PO QDAY Qty: 0 amitriptyline 50 MG tablet 50 mg PO HS Qty: 0 cetirizine 10 MG tablet 10 mg PO QDAY Qty: 0 glimepiride [Amaryl] 4 MG tablet 4 mg PO BID Qty: 0 losartan 25 MG tablet 25 mg PO QDAY Qty: 0 metformin [Fortamet] 1,000 MG tablet extended release 24hr 1,000 mg PO BEDTIME Qty: 0 tiotropium bromide [Spiriva with HandiHaler] 18 MCG capsule, w/inhalation device 1 puff INH QDAY Qty: 0 atorvastatin [Lipitor] 80 MG tablet 80 mg PO QDAY Qty: 0 gabapentin 800 MG tablet 800 mg PO TID Qty: 90 1RF meperidine [Demerol] 100 MG tablet 100 mg PO Q4P Qty: 60 0RF progesterone micronized [Prometrium] 100 mg capsule 100 mg PO QDAY Qty: 60 0RF Rx Instructions: Please schedule appointment for refills. Estring 2 mg (7.5 mcg /24 hour) ring 1 vaginalrin VAG [id number] Qty: 1 4RF estradiol 1 mg tablet See Rx Instructions .ROUTE .COMPLEX Qty: 90 3RF Dose Instruction: TAKE 1 TABLET BY MOUTH EVERY DAY Rx Instructions: TAKE 1 TABLET BY MOUTH EVERY DAY oxycodone 5 mg tablet 5 mg PO Q6H PRN (Reason: pain) Qty: 10 0RF clindamycin HCl 300 mg capsule 300 mg PO TID Qty: 21 0RF sucralfate [Carafate] 100 mg/mL suspension 10 ml PO QID Qty: 420 0RF Rx Instructions: swish in mouth and swallow; use after food/drink hydrocodone-acetaminophen 5-325 mg tablet 1 tab PO Q6H PRN (Reason: pain) Qty: 10 0RF promethazine 25 mg suppository 25 mg DE Q4-6H PRN (Reason: nausea and vomiting) Qty: 12 0RF pantoprazole [Protonix] 40 mg tablet,delayed release (DR/EC) 40 mg PO DAILY Qty: 30 0RF metoclopramide HCl [Reglan] 10 mg tablet 10 mg PO Q6H PRN (Reason: nausea and vomiting) Qty: 20 0RF hydrocodone-acetaminophen 5-325 mg tablet 1 tab PO Q6H PRN (Reason: pain) Qty: 10 0RF hydrocodone-acetaminophen 5-325 mg tablet 1 tab PO Q6H PRN (Reason: pain) Qty: 10 0RF hydrocodone-acetaminophen 5-325 mg tablet 1 tab PO Q6H PRN (Reason: pain) Qty: 10 0RF metformin 500 mg Tablet 500 mg PO DAILY Rx Instructions: take in the morning Lantus Solostar U-100 Insulin 100 unit/mL (3 mL) insulin pen 25 unit SUBCUT QPM Qty: 15 0RF doxycycline hyclate 100 mg tablet 100 mg PO BID Qty: 20 0RF pantoprazole [Protonix] 40 mg tablet,delayed release (DR/EC) 40 mg PO DAILY Qty: 30 0RF ondansetron 4 mg tablet,disintegrating 4 mg PO Q8H PRN (Reason: nausea and vomiting) Qty: 10 0RF sucralfate [Carafate] 1 gram tablet 1 g PO QACHS Qty: 45 0RF Visit Report Forms: Patient Portal/API
[2022-02-04] MEDS: HYDROMORPHONE 0.5 MG INJ IV (23:28)
[2022-02-04] MEDS: PANTOPRAZOLE 40 MG VIAL IV (23:28)
--- NOTE | 2022-02-04 23:36 | DI.CT.S_ITS ---
PROCEDURE: CT ABDOMEN PELVIS W CON INDICATIONS: Epigastric pain TECHNIQUE: After the administration of IV contrast, axial sections were acquired from the lung bases to the pubic symphysis. Coronal and sagittal reformats were performed. For radiation dose reduction, the following was used: automated exposure control, adjustment of mA and/or kV according to patient size. COMPARISON: [facility], CT, CT ABDOMEN PELVIS W CON, 09/05/2021, 23:37. FINDINGS: Image quality: Excellent. Lung bases: There is minimal dependent atelectasis. Heart: Heart is normal in size. ABDOMEN: Liver: There is a cystic lesion redemonstrated within the right hepatic lobe measuring up to 1.5 cm. A few additional scattered low-density foci are demonstrated within the liver which are too small to characterize but likely represent cysts. Gallbladder: Surgically absent. Biliary ducts: No biliary ductal dilatation. Pancreas: Unremarkable. Spleen: Normal in size. Adrenal Glands: No adrenal nodules. Kidneys and Ureters: No hydronephrosis. There are bilateral nonobstructing renal stones, with a 0.3 cm stone in the inferior pole the right kidney and 2 stones in the inferior pole of the left kidney measuring up to 0.7 cm and 0.4 cm. The largest stone demonstrates attenuation values of approximately 600-700 Hounsfield units. There is nonspecific perinephric stranding bilaterally. Stomach and Bowel: Stomach, small bowel loops, and colon are normal in caliber and wall thickness. The appendix is normal in appearance. Peritoneum: No abnormal intraperitoneal fluid. No free air. Ventral Wall: No hernia. Abdominal Nodes: No retroperitoneal or mesenteric adenopathy by size criteria. Vessels: Aorta and inferior vena cava are normal in size. PELVIS: Pelvic Organs: Unremarkable. Bladder: Unremarkable. Pelvic Nodes: No enlarged lymph nodes. Miscellaneous: No inguinal hernias are seen. Bones: Postsurgical changes are redemonstrated status post posterior fixation at L5-S1. Minimal anterolisthesis at L5-S1 appears unchanged. Visualized osseous structures demonstrate no suspicious focal lesions. IMPRESSION: 1. Bilateral nephrolithiasis without evidence of obstructive uropathy. 2. No evidence of appendicitis. 3. No CT evidence of acute pancreatitis. Dictated by: Hossein Scott M.D. on 02/05/2022 at 0:47 Approved by: Hossein Scott M.D. on 02/05/2022 at 0:54
[2022-02-04 23:37] LABS: Troponin I < 0.012 ng/mL (0.01-0.034)
[2022-02-05] VITALS: PULSE 67; O2SAT 99
[2022-02-05 00:30] VITALS: PULSE 72; O2SAT 97
[2022-02-05 01:00] VITALS: PULSE 72; O2SAT 95
[2022-02-05 01:30] VITALS: PULSE 71; O2SAT 95
[2022-02-05] MEDS: HYDROMORPHONE 1 MG INJ IV (01:33)
[2022-02-05 01:35] VITALS: BP 113/58; PULSE 76; O2SAT 98
== END 2022-02-05 01:45 | disposition home or self-care (01) ==
PROVIDERS: Emergency Provider Emergency Medicine
DX: R10.13 Epigastric pain (principal); E10.9 Type 1 diabetes mellitus without complications; B20 Human immunodeficiency virus [HIV] disease; M79.604 Pain in right leg; R07.9 Chest pain, unspecified
CPT/HCPCS: 71045; 74177; 80053; 82550; 83690; 83735; 84484; 85025; 93005; 93010; 96374; 96375; 96376; 99284; C9113; J1170

== ENCOUNTER 2022-03-07 09:26 | Emergency (ER) | payer MEDICARE, OTHER, SELFPAY ==
[2022-03-07] VITALS (10 sets, daily range): BP systolic 118–141; BP diastolic 59–80; PULSE 75–85; RESP 13–25; TEMP 35.8; O2SAT 91–96; BMI 25.8
--- NOTE | 2022-03-07 09:36 | DI.RAD.S_ITS ---
PROCEDURE: XR CHEST 1V INDICATIONS: chest pain TECHNIQUE: One view of the chest was acquired. COMPARISON: [facility], CT, CT LOW DOSE LUNG CA SCREENING, 03/01/2022, 12:45. [facility], CR, XR CHEST 1V, 09/05/2021, 20:57. [facility], CR, XR CHEST 1V, 02/04/2022, 21:29. FINDINGS: Surgical changes and devices: None. Lungs and pleura: Lungs are clear. No pleural effusions or pneumothorax. Mediastinum: Mediastinal contours appear normal. Heart size is normal. Bones and chest wall: No suspicious bony lesions. Age-appropriate bony degenerative changes are seen. Overlying soft tissues appear unremarkable. IMPRESSION: No acute cardiopulmonary process is seen. Dictated by: Alex Love M.D. on 03/07/2022 at 9:16 Approved by: Alex Love M.D. on 03/07/2022 at 9:17
[2022-03-07 09:58] LABS: COVID19 -Nasal RAPID Negative (Negative)
[2022-03-07 10:05] LABS: Add Manual Diff / Slide Review NO; Basophils Absolute Auto 100 /uL (0-100); Basophils Percent Auto 0.8 % (0-2); Eosinophils Absolute Auto 200 /uL (0-450); Eosinophils Percent Auto 2.5 % (2-4); Hematocrit 44.8 % (36-46); Hemoglobin 15.1 g/dL (12.0-16.0); Lymphocytes Absolute Auto 2900 /uL (1100-4500); Lymphocytes Percent Auto 38.1 % (25-40); Mean Corpuscular HGB Conc 33.6 % (30-36); Mean Corpuscular Hemoglobin 30.7 PG (26-34); Mean Corpuscular Volume 91.2 fL (80-100); Monocytes Absolute Auto 300 /uL (0-900); Monocytes Percent Auto 3.8 % (3-14); Neutrophils Absolute Auto 4200 /uL (1500-7000); Neutrophils Percent Auto 54.8 % (50-75); Platelet Count 202 X10^3/uL (150-400); Red Blood Cell Count 4.91 X10^6/uL (4.0-5.2); Red Cell Distribution Width 14.3 % (11.6-14.8); White Blood Cell Count 7.7 X10^3/uL (4.5-11.0)
[2022-03-07 10:16] LABS: Alanine Aminotransferase 20 IU/L (<35); Albumin 4.1 g/dL (3.5-5.0); Albumin Globulin Ratio 1.1 (1.0-2.8); Alkaline Phosphatase 96 U/L (38-126); Aspartate Aminotransferase 20 IU/L (14-36); BUN Creatinine Ratio 12.9 (6-22); Bilirubin Total 0.5 mg/dL (0.2-1.3); Blood Urea Nitrogen 11 mg/dL (7-17); Calcium 9.3 mg/dL (8.4-10.2); Carbon Dioxide 24 mmol/L (22-32); Chloride 104 mmol/L (98-107); Creatine Kinase < 20 U/L (30-135); Estimated Glomerular Filt Rate > 60 mL/min (>60); Globulin 3.7 g/dL (1.7-4.1); Glucose 179 mg/dL (70-100); HEMOLYSIS < 15 (0-50); Lipase 102 U/L (23-300); Magnesium 1.6 mg/dL (1.6-2.3); Sodium 142 mmol/L (137-145); Total Protein 7.8 g/dL (6.3-8.2)
[2022-03-07 10:27] LABS: Troponin I < 0.012 ng/mL (0.01-0.034)
--- NOTE | 2022-03-07 13:03 | ED.GENADULT ---
HPI - General Adult General Chief complaint: Shortness of Breath/Dyspnea Stated complaint: cough x7days Time Seen by Provider: 03/07/22 11:25 Source: patient Mode of arrival: Ambulatory History of Present Illness HPI narrative: 51-year-old woman with history of fibromyalgia, type 2 diabetes, HIV that is currently undetectable, reflux who presents with upper respiratory symptoms persisting after a week. She notes that she had mild cough with taking NyQuil and DayQuil and managing symptoms however at a week she is still coughing at night having difficulty sleeping decreased overall appetite although she did note that today she was feeling somewhat hungrier. She is wondering what options there may be. She does not report fevers, chest pain, palpitations. She notes a couple of episodes of vomiting earlier in the week but no diarrhea no abdominal pain. She is not complaining of headache Related Data Home Medications Medication Instructions Recorded Confirmed prazosin 1 mg capsule (Minipress) 1 mg PO BID ##0 03/10/16 05/01/21 propranolol 80 mg capsule,24 80 mg PO QDAY ##0 03/10/16 05/01/21 hr,extended release albuterol sulfate 90 mcg/actuation 2 puff INH BIDP PRN ##0 09/03/16 05/01/21 aerosol inhaler (Ventolin HFA) bupropion HCl 75 mg tablet 75 mg PO BID ##0 09/03/16 05/01/21 clonazepam 1 mg tablet 1 mg PO TID ##0 09/03/16 05/01/21 fluticasone propionate 50 1 spray intranasal BID ##0 09/03/16 05/01/21 mcg/actuation nasal spray,suspension (Flonase Allergy Relief) abacavir 600 mg-dolutegravir 50 1 tab PO QDAY ##0 11/24/16 05/01/21 mg-lamivudine 300 mg tablet (Triumeq) amitriptyline 50 mg tablet 50 mg PO HS ##0 11/24/16 05/01/21 cetirizine 10 mg tablet 10 mg PO QDAY ##0 11/24/16 05/01/21 dexlansoprazole 60 mg 60 mg PO QDAY ##0 11/24/16 05/01/21 capsule,biphase delayed release (Dexilant) glimepiride 4 mg tablet (Amaryl) 4 mg PO BID ##0 08/01/17 01/06/22 losartan 25 mg tablet 25 mg PO QDAY ##0 11/24/16 05/01/21 metformin 1,000 mg tablet,extended 1,000 mg PO BEDTIME ##0 11/24/16 05/01/21 release 24hr (Fortamet) tiotropium bromide 18 mcg capsule 1 puff INH QDAY ##0 11/24/16 05/01/21 with inhalation device (Spiriva with HandiHaler) atorvastatin 80 mg tablet (Lipitor) 80 mg PO QDAY ##0 12/16/16 05/01/21 metformin 500 mg tablet 500 mg PO DAILY 05/01/20 05/01/21 Previous Rx's Medication Instructions Recorded gabapentin 800 mg tablet 800 mg PO TID ##90 12/27/16 meperidine 100 mg tablet (Demerol) 100 mg PO Q4P #60 tabs 12/27/16 progesterone micronized 100 mg 100 mg PO QDAY #60 caps 08/16/19 capsule (Prometrium) estradiol 2 mg (7.5 mcg/24 hour) 1 vaginalrin vaginal [id number] #1 ea 02/15/20 vaginal ring (Estring) insulin glargine 100 unit/mL (3 25 unit (0.25 mL) SUBCUT QPM #15 mL 05/10/20 mL) subcutaneous pen (Lantus Solostar U-100 Insulin) fluconazole 150 mg tablet 150 mg PO ONCE #2 tabs 05/18/20 clindamycin HCl 300 mg capsule 300 mg PO TID #21 caps 06/07/20 oxycodone 5 mg tablet 5 mg PO Q6H PRN pain #10 tabs 06/07/20 doxycycline hyclate 100 mg tablet 100 mg PO BID #20 tabs 07/08/20 hydrocodone 5 mg-acetaminophen 325 1 tab PO Q6H PRN pain #10 tabs 03/25/21 mg tablet sucralfate 100 mg/mL oral 10 ml PO QID #420 mL 03/25/21 suspension (Carafate) ondansetron 4 mg disintegrating 4 mg PO Q8H PRN nausea and 06/25/21 tablet vomiting #10 tabs pantoprazole 40 mg tablet,delayed 40 mg PO DAILY #30 tabs 06/25/21 release (Protonix) sucralfate 1 gram tablet (Carafate) 1 g PO QACHS before meals, for 07/17/21 stomach barrier #45 tabs metoclopramide HCl 10 mg tablet 10 mg PO Q6H PRN nausea and 09/06/21 (Reglan) vomiting #20 tabs pantoprazole 40 mg tablet,delayed 40 mg PO DAILY #30 tabs 09/06/21 release (Protonix) promethazine 25 mg rectal 25 mg ME Q4-6H PRN nausea and 09/06/21 suppository vomiting #12 ea estradiol 1 mg tablet See Rx Instructions .Route 11/03/21 .COMPLEX #90 tabs hydrocodone 5 mg-acetaminophen 325 1 tab PO Q6H PRN pain #10 tabs 11/24/21 mg tablet hydrocodone 5 mg-acetaminophen 325 1 tab PO Q6H PRN pain #10 tabs 11/24/21 mg tablet hydrocodone 5 mg-acetaminophen 325 1 tab PO Q6H PRN pain #10 tabs 11/24/21 mg tablet albuterol sulfate 90 mcg/actuation 2 puff inhalation QID PRN 03/07/22 aerosol inhaler shortness of breath or wheezing #8.5 grams prednisone 20 mg tablet 20 mg PO DAILY #5 tabs 03/07/22 Allergies Allergy/AdvReac Type Severity Reaction Status Date / Time levofloxacin [LEVOFLOXACIN] Allergy Severe hives Verified 03/07/22 09:34 Sulfa (Sulfonamide Allergy Severe rash Verified 03/07/22 09:34 Antibiotics) [SULFA (SULFONAMIDE ANTIBIOTICS)] amoxicillin [From AUGMENTIN] Allergy Mild rash Verified 03/07/22 09:34 ciprofloxacin [From CIPRO] Allergy Mild rash Verified 03/07/22 09:34 clarithromycin [From BIAXIN] Allergy Mild rash Verified 03/07/22 09:34 clavulanic acid Allergy Mild rash Verified 03/07/22 09:34 [From AUGMENTIN] morphine [MORPHINE] AdvReac Mild n/v Verified 03/07/22 09:34 pregabalin [PREGABALIN] AdvReac Mild lost voice Verified 03/07/22 09:34 Review of Systems Review of Systems Narrative: Remainder of complete review of systems is otherwise unremarkable except for that included in the HPI. Patient History Medical History Anxiety Arthritis Bipolar disorder Depression Diabetes mellitus Fibroids GERD (gastroesophageal reflux disease) History of gastrointestinal symptoms HIV (human immunodeficiency virus infection) Hypertension PTSD (post-traumatic stress disorder) Surgical History History of cystoscopy (2013) History of stress incontinence procedure using tension free vaginal tape (2013) S/P functional endoscopic sinus surgery (2002) Status post arthroscopy (2003) Status post cholecystectomy (2011) Status post laparoscopic supracervical hysterectomy (2011) Family History Father Congestive heart failure Social History Smoking Status: Current every day smoker Smoking Status: Current every day smoker tobacco type: cigarettes alcohol intake frequency: holidays/special occasions only Substance Use Type: marijuana Exam Initial Vital Signs Initial Vital Signs: Vital Signs Temperature 96.5 F L 03/07/22 09:34 Pulse Rate 85 03/07/22 09:34 Respiratory Rate 15 03/07/22 09:34 Blood Pressure 136/75 03/07/22 09:34 Pulse Oximetry 96 03/07/22 09:34 Oxygen Delivery Method 03/07/22 09:34 General: Healthy appearing, in no acute distress. Able to give a complete and coherent history. Well-nourished well-developed HEENT: Moist mucous membranes, normal sclera with reactive pupils, Neck: No JVD, supple Respiratory: Lungs with scattered expiratory wheeze in all lung kothari, no accessory muscle use, no rhonchi Cardiac: Regular rate and rhythm no murmurs no bruits Abdomen: Soft, nontender, good bowel tones, no flank pain Skin: Warm and dry, no rashes Neurologic: Grossly neurologically intact with no obvious asymmetries or abnormalities Extremities: No trauma, well perfused Psych: Cooperative, appropriate insight and affect Course Orders Ordered: ED Orders 03/07/22 09:36 XR chest 1V Stat EKG-12 Lead Stat 03/07/22 09:37 COVID19 -Nasal RAPID/Pre-Proc Stat 03/07/22 09:58 Complete Blood Count AUTO DIFF Stat Comprehensive Metabolic Panel Stat Lipase Stat Magnesium Stat Troponin & CK Cardiac Panel Stat Discontinued Medications Albuterol (Albuterol Hfa Prepack) 1 box MISC SEEINSTR ONE Stop: 03/07/22 13:23 Last Admin: 03/07/22 13:40 Dose: 1 box Documented By: TRINH Albuterol/Ipratropium (Albuterol/Ipratropium 3 Ml Ampul) 3 ml INH NOW ONE Stop: 03/07/22 13:23 Last Admin: 03/07/22 13:40 Dose: 3 ml Documented By: TRINH Methylprednisolone (Methylprednisolone 125 Mg/2 Ml Vial) 125 mg IV NOW ONE Stop: 03/07/22 13:23 Last Admin: 03/07/22 13:36 Dose: 125 mg Documented By: REBECCA Vital Signs Vital signs: Vital Signs - 8 hr 03/07/22 09:34 03/07/22 11:39 03/07/22 11:43 Temperature 96.5 F L Pulse Rate 85 82 80 Respiratory Rate 15 Blood Pressure 136/75 Pulse Oximetry 96 91 96 Oxygen Delivery Method Room Air 03/07/22 11:43 03/07/22 12:00 03/07/22 12:00 Temperature Pulse Rate 80 Respiratory Rate 19 Blood Pressure 118/79 118/69 Pulse Oximetry 91 Oxygen Delivery Method 03/07/22 12:30 03/07/22 12:30 03/07/22 13:00 Temperature Pulse Rate 79 Respiratory Rate Blood Pressure 128/71 124/75 Pulse Oximetry 94 Oxygen Delivery Method 03/07/22 13:00 03/07/22 13:47 03/07/22 13:30 Temperature Pulse Rate 80 75 80 Respiratory Rate 23 16 25 H Blood Pressure Pulse Oximetry 94 95 93 Oxygen Delivery Method Room Air Room Air 03/07/22 13:31 03/07/22 13:31 03/07/22 14:00 Temperature Pulse Rate 79 Respiratory Rate 13 Blood Pressure 125/59 L 141/80 H Pulse Oximetry 94 Oxygen Delivery Method 03/07/22 14:00 Temperature Pulse Rate 75 Respiratory Rate 20 Blood Pressure Pulse Oximetry 94 Oxygen Delivery Method Room Air Medical Decision Making Lab Data Result diagrams: 03/07/22 09:58 03/07/22 09:58 Labs: Lab Results 03/07/22 03/07/22 03/07/22 Range/Units 09:37 09:58 09:58 WBC 7.7 (4.5-11.0) X10^3/uL RBC 4.91 (4.0-5.2) X10^6/uL Hgb 15.1 (12.0-16.0) g/dL Hct 44.8 (36-46) % MCV 91.2 (80-100) fL MCH 30.7 (26-34) PG MCHC 33.6 (30-36) % RDW 14.3 (11.6-14.8) % Plt Count 202 (150-400) X10^3/uL Neut % (Auto) 54.8 (50-75) % Lymph % (Auto) 38.1 (25-40) % [place] % (Auto) 3.8 (3-14) % Eos % (Auto) 2.5 (2-4) % Baso % (Auto) 0.8 (0-2) % Neut # (Auto) 4200 (6824-1675) /uL Lymph # (Auto) 2900 (9373-4315) /uL [place] # (Auto) 300 (0-900) /uL Eos # (Auto) 200 (0-450) /uL Baso # (Auto) 100 (0-100) /uL Sodium 142 (137-145) mmol/L Potassium 4.0 (3.4-5.1) mmol/L Chloride 104 (98-107) mmol/L Carbon Dioxide 24 (22-32) mmol/L BUN 11 (7-17) mg/dL Creatinine 0.85 (0.52-1.04) mg/dL Estimated GFR > 60 (>60) mL/min BUN/Creatinine Ratio 12.9 (6-22) Glucose 179 H (70-100) mg/dL Calcium 9.3 (8.4-10.2) mg/dL Magnesium 1.6 (1.6-2.3) mg/dL Total Bilirubin 0.5 (0.2-1.3) mg/dL AST 20 (14-36) IU/L ALT 20 (<35) IU/L Alkaline Phosphatase 96 (38-126) U/L Total Creatine Kinase < 20 L (30-135) U/L CK-MB (CK-2) TNP CK-MB (CK-2) Rel Index TNP Troponin I < 0.012 (0.01-0.034) ng/mL Total Protein 7.8 (6.3-8.2) g/dL Albumin 4.1 (3.5-5.0) g/dL Globulin 3.7 (1.7-4.1) g/dL Albumin/Globulin Ratio 1.1 (1.0-2.8) Lipase 102 (23-300) U/L SARS-CoV-2 (PCR) Negative (Negative) Imaging Data Chest x-ray: Radiologist's Impression: FINDINGS:? ? Surgical changes and devices:? None.? ? Lungs and pleura:? Lungs are clear.? No pleural effusions or pneumothorax.? ? Mediastinum:? Mediastinal contours appear normal.? Heart size is normal.? ? Bones and chest wall:? No suspicious bony lesions.? Age-appropriate bony degenerative changes are seen. ? Overlying soft tissues appear unremarkable.? IMPRESSION:? ? No acute cardiopulmonary process is seen.? Dictated by: Alex Love M.D. on 03/07/2022 at 9:16 ? ? MDM Narrative Medical decision making narrative: 51-year-old woman who does not have an official diagnosis of asthma however with prior upper respiratory infection she has done well with steroids and inhalers. At this point at the end of a viral infection I believe she is improving however still having significant cough and expiratory wheeze as result of reactive airway disease. She has improved after a DuoNeb here in the emergency department. She is sent home with a spacer and albuterol MDI. She is given a dose of Solu-Medrol in the emergency department and will have her complete 5 additional days of 20 mg of steroids. Will ask her to follow-up if she is not improving. At this point there is no evidence of bacterial infection, acute respiratory distress, congestive heart failure or myocardial infarction. She will be safe for home discharge Discharge Plan Departure Patient Disposition: Home Clinical Impression: Upper respiratory infection Qualifiers: URI type: unspecified viral URI Qualified Code(s): J06.9 - Acute upper respiratory infection, unspecified Exacerbation of reactive airway disease Qualifiers: Asthma severity: mild Asthma persistence: intermittent Qualified Code(s): J45.21 - Mild intermittent asthma with (acute) exacerbation Instructions: DI for Asthma -- Adult, DI for Viral Upper Respiratory Infection -- Adult Activity Restrictions/Additional Instructions: Thank you for coming in today There is no evidence for severe sepsis, bacterial pneumonia or other complications. I suspect that you have 1 of the common viruses that circulating right now. I also suspect that you do have mild reactive airway disease or asthma. This is what is causing the persistent cough at the end of viral infections for you. I have given you a dose of steroid in the emergency department and like you to take 5 additional days of 20 mg of prednisone. Your breathing Your breathing improved nicely after the nebulizer in the emergency department. I have given you a spacer as well as an albuterol inhaler. I will also give you a prescription for additional albuterol if you use up the 60 doses that were dispensed from the emergency department. I would recommend 2 puffs 4 times a day and or with severe coughing. Prescriptions were electronically transmitted to [facility] in and [employer] If you find that you are getting worse please feel free to return to the ER Prescriptions: New albuterol sulfate 90 mcg/actuation HFA aerosol inhaler 2 puff inhalation QID PRN (Reason: shortness of breath or wheezing) Qty: 8.5 0RF prednisone 20 mg tablet 20 mg PO DAILY Qty: 5 0RF No Action fluconazole 150 mg tablet 150 mg PO ONCE Qty: 2 0RF Rx Instructions: Repeat in 72 hours if still symptomatic propranolol 80 MG capsule,extended release 24 hr 80 mg PO QDAY Qty: 0 prazosin [Minipress] 1 MG capsule 1 mg PO BID Qty: 0 bupropion HCl 75 MG tablet 75 mg PO BID Qty: 0 albuterol sulfate [Ventolin HFA] 90 MCG/PUFF HFA aerosol inhaler 2 puff INH BIDP PRNQty: 0 clonazepam 1 MG tablet 1 mg PO TID Qty: 0 fluticasone propionate [Flonase Allergy Relief] 9.9 ML spray,suspension 1 spray Intranasal BID Qty: 0 [id number] [Triumeq] 1 EACH tablet 1 tab PO QDAY Qty: 0 dexlansoprazole [Dexilant] 60 MG capsule,biphase delayed releas 60 mg PO QDAY Qty: 0 amitriptyline 50 MG tablet 50 mg PO HS Qty: 0 cetirizine 10 MG tablet 10 mg PO QDAY Qty: 0 glimepiride [Amaryl] 4 MG tablet 4 mg PO BID Qty: 0 losartan 25 MG tablet 25 mg PO QDAY Qty: 0 metformin [Fortamet] 1,000 MG tablet extended release 24hr 1,000 mg PO BEDTIME Qty: 0 tiotropium bromide [Spiriva with HandiHaler] 18 MCG capsule, w/inhalation device 1 puff INH QDAY Qty: 0 atorvastatin [Lipitor] 80 MG tablet 80 mg PO QDAY Qty: 0 gabapentin 800 MG tablet 800 mg PO TID Qty: 90 1RF meperidine [Demerol] 100 MG tablet 100 mg PO Q4P Qty: 60 0RF progesterone micronized [Prometrium] 100 mg capsule 100 mg PO QDAY Qty: 60 0RF Rx Instructions: Please schedule appointment for refills. Estring 2 mg (7.5 mcg /24 hour) ring 1 vaginalrin VAG [id number] Qty: 1 4RF estradiol 1 mg tablet See Rx Instructions .ROUTE .COMPLEX Qty: 90 3RF Dose Instruction: TAKE 1 TABLET BY MOUTH EVERY DAY Rx Instructions: TAKE 1 TABLET BY MOUTH EVERY DAY oxycodone 5 mg tablet 5 mg PO Q6H PRN (Reason: pain) Qty: 10 0RF clindamycin HCl 300 mg capsule 300 mg PO TID Qty: 21 0RF sucralfate [Carafate] 100 mg/mL suspension 10 ml PO QID Qty: 420 0RF Rx Instructions: swish in mouth and swallow; use after food/drink hydrocodone-acetaminophen 5-325 mg tablet 1 tab PO Q6H PRN (Reason: pain) Qty: 10 0RF promethazine 25 mg suppository 25 mg ME Q4-6H PRN (Reason: nausea and vomiting) Qty: 12 0RF pantoprazole [Protonix] 40 mg tablet,delayed release (DR/EC) 40 mg PO DAILY Qty: 30 0RF metoclopramide HCl [Reglan] 10 mg tablet 10 mg PO Q6H PRN (Reason: nausea and vomiting) Qty: 20 0RF hydrocodone-acetaminophen 5-325 mg tablet 1 tab PO Q6H PRN (Reason: pain) Qty: 10 0RF hydrocodone-acetaminophen 5-325 mg tablet 1 tab PO Q6H PRN (Reason: pain) Qty: 10 0RF hydrocodone-acetaminophen 5-325 mg tablet 1 tab PO Q6H PRN (Reason: pain) Qty: 10 0RF metformin 500 mg Tablet 500 mg PO DAILY Rx Instructions: take in the morning Lantus Solostar U-100 Insulin 100 unit/mL (3 mL) insulin pen 25 unit SUBCUT QPM Qty: 15 0RF doxycycline hyclate 100 mg tablet 100 mg PO BID Qty: 20 0RF pantoprazole [Protonix] 40 mg tablet,delayed release (DR/EC) 40 mg PO DAILY Qty: 30 0RF ondansetron 4 mg tablet,disintegrating 4 mg PO Q8H PRN (Reason: nausea and vomiting) Qty: 10 0RF sucralfate [Carafate] 1 gram tablet 1 g PO QACHS Qty: 45 0RF
[2022-03-07] MEDS: methylPREDNISolone 125 MG/2 ML VIAL IV (13:36)
[2022-03-07] MEDS: ALBUTEROL HFA PREPACK 1 BOX MISC (13:40)
[2022-03-07] MEDS: ALBUTEROL/IPRATROPIUM 3 ML AMPUL INH (13:40)
== END 2022-03-07 14:32 | disposition home or self-care (01) ==
PROVIDERS: Emergency Provider Emergency Medicine
DX: J06.9 Acute upper respiratory infection, unspecified (principal); J45.21 Mild intermittent asthma with (acute) exacerbation; Z20.822 Contact with and (suspected) exposure to COVID-19
CPT/HCPCS: 36415; 71045; 80053; 82550; 83690; 83735; 84484; 85025; 87635; 94640; 96374; 99284; C9803; J2930

== ENCOUNTER 2022-03-14 16:25 | Emergency (ER) | payer MEDICARE, OTHER, SELFPAY | END 2022-03-14 16:51 | disposition left against medical advice (07) | PROVIDERS: Emergency Provider Emergency Medicine ==

== ENCOUNTER 2022-03-17 15:22 | Emergency (ER) | payer MEDICARE, OTHER, SELFPAY ==
[2022-03-17] VITALS (9 sets, daily range): BP systolic 111–126; BP diastolic 56–74; PULSE 55–90; RESP 14–21; TEMP 36.7; O2SAT 92–98
--- NOTE | 2022-03-17 15:31 | DI.RAD.S_ITS ---
PROCEDURE: XR CHEST 1V INDICATIONS: chest pain TECHNIQUE: One view of the chest was acquired. COMPARISON: [facility], CR, XR CHEST 1V, 03/07/2022, 9:49. FINDINGS: Surgical changes and devices: None. Lungs and pleura: Lungs are clear. No pleural effusions or pneumothorax. Mediastinum: Mediastinal contours appear normal. Heart size is normal. Bones and chest wall: No suspicious bony lesions. Overlying soft tissues appear unremarkable. IMPRESSION: No acute pulmonary process. Dictated by: Liz Gurrola M.D. on 03/17/2022 at 16:36 Approved by: Liz Gurrola M.D. on 03/17/2022 at 16:36
[2022-03-17] MEDS: ASPIRIN 81 MG CHEW TAB 324 MG PO (15:36)
[2022-03-17 16:17] LABS: COVID19 -Nasal RAPID Negative (Negative)
[2022-03-17] MEDS: MAG HYDROX/ALUMINUM/SIMETH SUS 20 ML, LIDOCAINE VISCOUS 2% 15 ML PO (16:38)
--- NOTE | 2022-03-17 16:38 | ED_ITS ---
HPI - Chest Pain <Roosevelt Márquez PA-C - Last Filed: 03/17/22 18:28> General Chief Complaint: Chest Pain Stated Complaint: CHEST PAIN, SOB, DYSPNEA Time Seen by Provider: 03/17/22 15:37 Source: patient and family Mode of arrival: Ambulatory History of Present Illness HPI narrative: 51-year-old female with past medical history HIV that is currently undetectable, GERD, type 2 diabetes, fibromyalgia presents to the ED with persistent URI symptoms for 3 weeks. Patient was seen in our ED for the same complaint on 02/24, discharged with albuterol and prednisone. Patient states that her symptoms have not improved with the medications. Patient states that starting yesterday, she felt worsening cough and myalgias. Patient complains of burning substernal chest pain that sometimes radiates to her right arm. Patient endorses a productive cough, nausea. Denies fever, chills, shortness of breath, vomiting, dysuria, constipation, diarrhea, lightheadedness, dizziness, syncope. Patient states she has frequent abdominal pain, no recent change. Patient sees a GI. Patient states that she had an endoscopy last year. Patient states she was diagnosed with H pylori. She is unable to recall if she was treated with antibiotics for it. Related Data Home Medications Medication Instructions Recorded Confirmed prazosin 1 mg capsule (Minipress) 1 mg PO BID ##0 03/10/16 05/01/21 propranolol 80 mg capsule,24 80 mg PO QDAY ##0 03/10/16 05/01/21 hr,extended release albuterol sulfate 90 mcg/actuation 2 puff INH BIDP PRN ##0 09/03/16 05/01/21 aerosol inhaler (Ventolin HFA) bupropion HCl 75 mg tablet 75 mg PO BID ##0 09/03/16 05/01/21 clonazepam 1 mg tablet 1 mg PO TID ##0 09/03/16 05/01/21 fluticasone propionate 50 1 spray intranasal BID ##0 09/03/16 05/01/21 mcg/actuation nasal spray,suspension (Flonase Allergy Relief) abacavir 600 mg-dolutegravir 50 1 tab PO QDAY ##0 11/24/16 05/01/21 mg-lamivudine 300 mg tablet (Triumeq) amitriptyline 50 mg tablet 50 mg PO HS ##0 11/24/16 05/01/21 cetirizine 10 mg tablet 10 mg PO QDAY ##0 11/24/16 05/01/21 dexlansoprazole 60 mg 60 mg PO QDAY ##0 11/24/16 05/01/21 capsule,biphase delayed release (Dexilant) glimepiride 4 mg tablet (Amaryl) 4 mg PO BID ##0 11/24/16 05/01/21 losartan 25 mg tablet 25 mg PO QDAY ##0 11/24/16 05/01/21 metformin 1,000 mg tablet,extended 1,000 mg PO BEDTIME ##0 11/24/16 05/01/21 release 24hr (Fortamet) tiotropium bromide 18 mcg capsule 1 puff INH QDAY ##0 11/24/16 05/01/21 with inhalation device (Spiriva with HandiHaler) atorvastatin 80 mg tablet (Lipitor) 80 mg PO QDAY ##0 12/16/16 05/01/21 metformin 500 mg tablet 500 mg PO DAILY 05/01/20 05/01/21 Previous Rx's Medication Instructions Recorded gabapentin 800 mg tablet 800 mg PO TID ##90 12/27/16 meperidine 100 mg tablet (Demerol) 100 mg PO Q4P #60 tabs 12/27/16 progesterone micronized 100 mg 100 mg PO QDAY #60 caps 08/16/19 capsule (Prometrium) estradiol 2 mg (7.5 mcg/24 hour) 1 vaginalrin vaginal [id number] #1 ea 02/15/20 vaginal ring (Estring) insulin glargine 100 unit/mL (3 25 unit (0.25 mL) SUBCUT QPM #15 mL 05/10/20 mL) subcutaneous pen (Lantus Solostar U-100 Insulin) fluconazole 150 mg tablet 150 mg PO ONCE #2 tabs 05/18/20 clindamycin HCl 300 mg capsule 300 mg PO TID #21 caps 06/07/20 oxycodone 5 mg tablet 5 mg PO Q6H PRN pain #10 tabs 06/07/20 doxycycline hyclate 100 mg tablet 100 mg PO BID #20 tabs 07/08/20 hydrocodone 5 mg-acetaminophen 325 1 tab PO Q6H PRN pain #10 tabs 03/25/21 mg tablet sucralfate 100 mg/mL oral 10 ml PO QID #420 mL 03/25/21 suspension (Carafate) ondansetron 4 mg disintegrating 4 mg PO Q8H PRN nausea and 06/25/21 tablet vomiting #10 tabs pantoprazole 40 mg tablet,delayed 40 mg PO DAILY #30 tabs 06/25/21 release (Protonix) sucralfate 1 gram tablet (Carafate) 1 g PO QACHS before meals, for 07/17/21 stomach barrier #45 tabs metoclopramide HCl 10 mg tablet 10 mg PO Q6H PRN nausea and 09/06/21 (Reglan) vomiting #20 tabs pantoprazole 40 mg tablet,delayed 40 mg PO DAILY #30 tabs 09/06/21 release (Protonix) promethazine 25 mg rectal 25 mg AL Q4-6H PRN nausea and 09/06/21 suppository vomiting #12 ea estradiol 1 mg tablet See Rx Instructions .Route 11/03/21 .COMPLEX #90 tabs hydrocodone 5 mg-acetaminophen 325 1 tab PO Q6H PRN pain #10 tabs 11/24/21 mg tablet hydrocodone 5 mg-acetaminophen 325 1 tab PO Q6H PRN pain #10 tabs 11/24/21 mg tablet hydrocodone 5 mg-acetaminophen 325 1 tab PO Q6H PRN pain #10 tabs 11/24/21 mg tablet albuterol sulfate 90 mcg/actuation 2 puff inhalation QID PRN 03/07/22 aerosol inhaler shortness of breath or wheezing #8.5 grams prednisone 20 mg tablet 20 mg PO DAILY #5 tabs 03/07/22 Allergies Allergy/AdvReac Type Severity Reaction Status Date / Time levofloxacin [LEVOFLOXACIN] Allergy Severe hives Verified 03/07/22 09:34 Sulfa (Sulfonamide Allergy Severe rash Verified 03/07/22 09:34 Antibiotics) [SULFA (SULFONAMIDE ANTIBIOTICS)] amoxicillin [From AUGMENTIN] Allergy Mild rash Verified 03/07/22 09:34 ciprofloxacin [From CIPRO] Allergy Mild rash Verified 03/07/22 09:34 clarithromycin [From BIAXIN] Allergy Mild rash Verified 03/07/22 09:34 clavulanic acid Allergy Mild rash Verified 03/07/22 09:34 [From AUGMENTIN] morphine [MORPHINE] AdvReac Mild n/v Verified 03/07/22 09:34 pregabalin [PREGABALIN] AdvReac Mild lost voice Verified 03/07/22 09:34 Review of Systems <Roosevelt Márquez PA-C - Last Filed: 03/17/22 18:28> Review of Systems ROS Unobtainable: All systems reviewed & are unremarkable except as noted in HPI and below Constitutional Constitutional: Denies chills, Reports fatigue, Denies fever(s), Denies frequent falls, Denies lethargy and Denies weakness Eyes Eyes: Denies change in vision, Denies eye discharge, Denies irritation and De nies loss of vision ENT Ears, Nose, Mouth, and Throat: Denies change in voice, Denies dizziness, Denies neck pain, Denies sore throat and Denies throat swelling Cardiovascular Cardiovascular: Reports chest pain, Denies irregular heart rhythm, Denies lightheadedness, Denies palpitations, Denies dyspnea, Denies dyspnea on exertion and Denies orthopnea Respiratory Respiratory: Reports cough, Denies dyspnea, Denies dyspnea on exertion and Denies wheezing Gastrointestinal Gastrointestinal: Denies abdominal pain, Denies change in bowel habits, Denies diarrhea, Reports nausea and Denies vomiting Genitourinary Genitourinary: Denies hematuria, Denies flank pain, Denies urinary incontinence and Denies urinary urgency Musculoskeletal Musculoskeletal: Denies back pain, Denies muscle weakness, Denies neck pain, Denies numbness and Denies tingling Integumentary/Breasts Skin/Breast: Denies pruritus, Denies erythema, Denies rash and Denies wounds Neurologic Neurologic: Denies behavioral changes, Denies confusion, Denies dizziness, Denies frequent falls, Denies loss of vision, Denies numbness, Denies tingling and Denies weakness Psychiatric Psychiatric: Denies anxiety, Denies behavioral changes, Denies confusion, Denies depression, Denies homicidal ideation and Denies suicidal ideation Endocrine Endocrine: Reports fatigue, Denies flushing and Denies palpitations Hematologic/Lymphatic Hematologic/Lymphatic: Denies easy bruising Allergic/Immunologic Allergic/Immunologic: Denies urticaria, Denies throat swelling and Denies wheezing Patient History <Roosevelt Márquez PA-C - Last Filed: 03/17/22 18:28> Medical History Anxiety Arthritis Bipolar disorder Depression Diabetes mellitus Fibroids GERD (gastroesophageal reflux disease) History of gastrointestinal symptoms HIV (human immunodeficiency virus infection) Hypertension PTSD (post-traumatic stress disorder) Surgical History History of cystoscopy (2013) History of stress incontinence procedure using tension free vaginal tape (2013) S/P functional endoscopic sinus surgery (2002) Status post arthroscopy (2003) Status post cholecystectomy (2011) Status post laparoscopic supracervical hysterectomy (2011) Family History Father Congestive heart failure Social History Smoking Status: Current every day smoker Smoking Status: Current every day smoker tobacco type: cigarettes alcohol intake frequency: holidays/special occasions only Substance Use Type: marijuana Exam <Roosevelt Márquez PA-C - Last Filed: 03/17/22 18:28> Narrative Exam Narrative: Const General:?cooperative, healthy appearing and comfortable [facility] Head:?normal to inspection Ears:?hearing grossly normal bilaterally Nose:?external nose normal Face and sinus:?normal facial exam and sinuses nontender Mouth:?oral mucosae normal Throat:?posterior oropharynx normal Eyes General:?appearance normal, both eyes and all related structures Neck Neck:?normal visual inspection and no lymphadenopathy noted Resp Effort & Inspection:?normal respiratory effort Auscultation:?clear to auscultation bilaterally Cardio Rate:?regular rate Rhythm:?regular rhythm Neuro General:?patient alert, patient awake and patient oriented x3 Initial Vital Signs Initial Vital Signs: Vital Signs Temperature 98.1 F 03/17/22 15:28 Pulse Rate 86 03/17/22 15:28 Respiratory Rate 20 03/17/22 15:28 Blood Pressure 113/56 L 03/17/22 15:28 Pulse Oximetry 96 03/17/22 15:28 Oxygen Delivery Method 03/17/22 15:28 <Gurwinder Sheets DO - Last Filed: 03/17/22 18:28> Initial Vital Signs Initial Vital Signs: Vital Signs Temperature 98.1 F 03/17/22 15:28 Pulse Rate 86 03/17/22 15:28 Respiratory Rate 20 03/17/22 15:28 Blood Pressure 113/56 L 03/17/22 15:28 Pulse Oximetry 96 03/17/22 15:28 Oxygen Delivery Method 03/17/22 15:28 Course <Roosevelt Márquez PA-C - Last Filed: 03/17/22 18:28> Orders Ordered: ED Orders 03/17/22 15:31 XR chest 1V Stat 03/17/22 15:40 COVID19 -Nasal RAPID/Pre-Proc Stat 03/17/22 15:41 EKG-12 Lead Stat 03/17/22 16:35 Respiratory Panel (Film Array) Stat 03/17/22 17:00 Complete Blood Count AUTO DIFF Stat Comprehensive Metabolic Panel Stat Lipase Stat Magnesium Stat Partial Thromboplastin Time Stat Prothrombin Time INR Stat Troponin & CK Cardiac Panel Stat Discontinued Medications Aspirin (Aspirin 81 Mg Chew Tab) 324 mg PO NOW ONE Stop: 03/17/22 15:32 Last Admin: 03/17/22 15:36 Dose: 324 mg Documented By: RB Al Hydrox/Mg Hydrox/Simethicone 20 ml/ Lidocaine HCl 15 ml 0 ml PO NOW ONE Stop: 03/17/22 16:16 Last Admin: 03/17/22 16:38 Dose: 45 ml Documented By: RB Famotidine (Famotidine 20 Mg/2 Ml Vial) 20 mg IV NOW [facility] Famotidine (Famotidine 20 Mg Tablet) 20 mg PO BID MILY Famotidine (Famotidine 20 Mg Tablet) 20 mg PO NOW ONE Stop: 03/17/22 16:49 Last Admin: 03/17/22 16:51 Dose: 20 mg Documented By: RB Vital Signs Vital signs: Vital Signs - 8 hr 03/17/22 15:28 03/17/22 15:34 03/17/22 15:45 Temperature 98.1 F Pulse Rate 86 55 L 83 Respiratory Rate 20 Blood Pressure 113/56 L Pulse Oximetry 96 92 96 Oxygen Delivery Method Room Air 03/17/22 15:46 03/17/22 15:46 03/17/22 16:00 Temperature Pulse Rate 80 85 Respiratory Rate 19 14 Blood Pressure 119/74 Pulse Oximetry 96 96 Oxygen Delivery Method 03/17/22 16:00 03/17/22 16:15 03/17/22 16:30 Temperature Pulse Rate 90 Respiratory Rate 18 Blood Pressure 111/65 112/59 L Pulse Oximetry 97 Oxygen Delivery Method 03/17/22 16:30 03/17/22 16:45 Temperature Pulse Rate 84 79 Respiratory Rate 21 Blood Pressure Pulse Oximetry 96 95 Oxygen Delivery Method <Gurwinder Sheets DO - Last Filed: 03/17/22 18:28> Orders Ordered: ED Orders 03/17/22 15:31 XR chest 1V Stat 03/17/22 15:40 COVID19 -Nasal RAPID/Pre-Proc Stat 03/17/22 15:41 EKG-12 Lead Stat 03/17/22 16:35 Respiratory Panel (Film Array) Stat 03/17/22 17:00 Complete Blood Count AUTO DIFF Stat Comprehensive Metabolic Panel Stat Lipase Stat Magnesium Stat Partial Thromboplastin Time Stat Prothrombin Time INR Stat Troponin & CK Cardiac Panel Stat Discontinued Medications Aspirin (Aspirin 81 Mg Chew Tab) 324 mg PO NOW ONE Stop: 03/17/22 15:32 Last Admin: 03/17/22 15:36 Dose: 324 mg Documented By: RB Al Hydrox/Mg Hydrox/Simethicone 20 ml/ Lidocaine HCl 15 ml 0 ml PO NOW ONE Stop: 03/17/22 16:16 Last Admin: 03/17/22 16:38 Dose: 45 ml Documented By: RB Famotidine (Famotidine 20 Mg/2 Ml Vial) 20 mg IV NOW [facility] Famotidine (Famotidine 20 Mg Tablet) 20 mg PO BID MILY Famotidine (Famotidine 20 Mg Tablet) 20 mg PO NOW ONE Stop: 03/17/22 16:49 Last Admin: 03/17/22 16:51 Dose: 20 mg Documented By: RB Vital Signs Vital signs: Vital Signs - 8 hr 03/17/22 15:28 03/17/22 15:34 03/17/22 15:45 Temperature 98.1 F Pulse Rate 86 55 L 83 Respiratory Rate 20 Blood Pressure 113/56 L Pulse Oximetry 96 92 96 Oxygen Delivery Method Room Air 03/17/22 15:46 03/17/22 15:46 03/17/22 16:00 Temperature Pulse Rate 80 85 Respiratory Rate 19 14 Blood Pressure 119/74 Pulse Oximetry 96 96 Oxygen Delivery Method 03/17/22 16:00 03/17/22 16:15 03/17/22 16:30 Temperature Pulse Rate 90 Respiratory Rate 18 Blood Pressure 111/65 112/59 L Pulse Oximetry 97 Oxygen Delivery Method 03/17/22 16:30 03/17/22 16:45 Temperature Pulse Rate 84 79 Respiratory Rate 21 Blood Pressure Pulse Oximetry 96 95 Oxygen Delivery Method MDM - Chest Pain <Roosevelt Márquez PA-C - Last Filed: 03/17/22 18:28> Lab Data Result diagrams: 03/17/22 17:00 03/17/22 17:00 Labs: Lab Results 03/17/22 03/17/22 03/17/22 Range/Units 15:40 16:35 17:00 WBC 11.6 H (4.5-11.0) X10^3/uL RBC 4.50 (4.0-5.2) X10^6/uL Hgb 13.7 (12.0-16.0) g/dL Hct 40.9 (36-46) % MCV 90.8 (80-100) fL MCH 30.4 (26-34) PG MCHC 33.5 (30-36) % RDW 14.5 (11.6-14.8) % Plt Count 166 (150-400) X10^3/uL Neut % (Auto) 62.9 (50-75) % Lymph % (Auto) 31.1 (25-40) % [place] % (Auto) 3.6 (3-14) % Eos % (Auto) 1.4 L (2-4) % Baso % (Auto) 1.0 (0-2) % Neut # (Auto) 7300 H (0161-5379) /uL Lymph # (Auto) 3600 (4769-7154) /uL [place] # (Auto) 400 (0-900) /uL Eos # (Auto) 200 (0-450) /uL Baso # (Auto) 100 (0-100) /uL PT (10.1-12.7) SECONDS INR (0.9-1.3) APTT (26-36) SECONDS Sodium (137-145) mmol/L Potassium (3.4-5.1) mmol/L Chloride (98-107) mmol/L Carbon Dioxide (22-32) mmol/L BUN (7-17) mg/dL Creatinine (0.52-1.04) mg/dL Estimated GFR (>60) mL/min BUN/Creatinine Ratio (6-22) Glucose (70-100) mg/dL Calcium (8.4-10.2) mg/dL Magnesium (1.6-2.3) mg/dL Total Bilirubin (0.2-1.3) mg/dL AST (14-36) IU/L ALT (<35) IU/L Alkaline Phosphatase (38-126) U/L Total Creatine Kinase (30-135) U/L CK-MB (CK-2) CK-MB (CK-2) Rel Index Troponin I (0.01-0.034) ng/mL Total Protein (6.3-8.2) g/dL Albumin (3.5-5.0) g/dL Globulin (1.7-4.1) g/dL Albumin/Globulin Ratio (1.0-2.8) Lipase (23-300) U/L Chlamy pneumoniae PCR Not detected (Not Detect) Adenovirus (PCR) Not detected (Not Detect) B. pertussis DNA (PCR) Not detected (Not Detecte) B.parapertussis DNA PCR Not detected (Not Detecte) Coronavirus OC43 (PCR) Not detected (Not Detect) Coronavirus HKU1 (PCR) Not detected (Not Detect) Coronavirus 229E (PCR) Not detected (Not Detect) SARS-CoV-2 (PCR) Negative Not detected (Negative) Coronavirus NL63 (PCR) Not detected (Not Detect) Human Metapneumovir PCR Not detected (Not Detect) Influenza Type A (PCR) Not detected (Not Detect) Influenza Type B (PCR) Not detected (Not Detect) M. pneumoniae (PCR) Not detected (Not Detect) Parainfluenza 1 (PCR) Not detected (Not Detect) Parainfluenza 2 (PCR) Not detected (Not Detect) Parainfluenza 3 (PCR) Not detected (Not Detect) Parainfluenza 4 (PCR) Not detected (Not Detect) RSV (PCR) Not detected (Not Detect) Entero/Rhino (PCR) Detected H (Not Detect) 03/17/22 03/17/22 Range/Units 17:00 17:00 WBC (4.5-11.0) X10^3/uL RBC (4.0-5.2) X10^6/uL Hgb (12.0-16.0) g/dL Hct (36-46) % MCV (80-100) fL MCH (26-34) PG MCHC (30-36) % RDW (11.6-14.8) % Plt Count (150-400) X10^3/uL Neut % (Auto) (50-75) % Lymph % (Auto) (25-40) % [place] % (Auto) (3-14) % Eos % (Auto) (2-4) % Baso % (Auto) (0-2) % Neut # (Auto) (7535-4983) /uL Lymph # (Auto) (7424-1457) /uL [place] # (Auto) (0-900) /uL Eos # (Auto) (0-450) /uL Baso # (Auto) (0-100) /uL PT 12.2 (10.1-12.7) SECONDS INR 1.1 (0.9-1.3) APTT 28 (26-36) SECONDS Sodium 138 (137-145) mmol/L Potassium 3.9 (3.4-5.1) mmol/L Chloride 101 (98-107) mmol/L Carbon Dioxide 26 (22-32) mmol/L BUN 6 L (7-17) mg/dL Creatinine 0.73 (0.52-1.04) mg/dL Estimated GFR > 60 (>60) mL/min BUN/Creatinine Ratio 8.2 (6-22) Glucose 193 H (70-100) mg/dL Calcium 8.6 (8.4-10.2) mg/dL Magnesium 1.6 (1.6-2.3) mg/dL Total Bilirubin 0.4 (0.2-1.3) mg/dL AST 18 (14-36) IU/L ALT 17 (<35) IU/L Alkaline Phosphatase 75 (38-126) U/L Total Creatine Kinase < 20 L (30-135) U/L CK-MB (CK-2) TNP CK-MB (CK-2) Rel Index TNP Troponin I < 0.012 (0.01-0.034) ng/mL Total Protein 6.8 (6.3-8.2) g/dL Albumin 3.6 (3.5-5.0) g/dL Globulin 3.2 (1.7-4.1) g/dL Albumin/Globulin Ratio 1.1 (1.0-2.8) Lipase 96 (23-300) U/L Chlamy pneumoniae PCR (Not Detect) Adenovirus (PCR) (Not Detect) B. pertussis DNA (PCR) (Not Detecte) B.parapertussis DNA PCR (Not Detecte) Coronavirus OC43 (PCR) (Not Detect) Coronavirus HKU1 (PCR) (Not Detect) Coronavirus 229E (PCR) (Not Detect) SARS-CoV-2 (PCR) (Negative) Coronavirus NL63 (PCR) (Not Detect) Human Metapneumovir PCR (Not Detect) Influenza Type A (PCR) (Not Detect) Influenza Type B (PCR) (Not Detect) M. pneumoniae (PCR) (Not Detect) Parainfluenza 1 (PCR) (Not Detect) Parainfluenza 2 (PCR) (Not Detect) Parainfluenza 3 (PCR) (Not Detect) Parainfluenza 4 (PCR) (Not Detect) RSV (PCR) (Not Detect) Entero/Rhino (PCR) (Not Detect) Imaging Data Chest x-ray: Radiologist's Impression: PROCEDURE:? XR CHEST 1V ? INDICATIONS:? chest pain ? TECHNIQUE:? One view of the chest was acquired.? ? COMPARISON:? [facility], CR, XR CHEST 1V, 03/07/2022, 9:49. ? FINDINGS:? ? Surgical changes and devices:? None.? ? Lungs and pleura:? Lungs are clear.? No pleural effusions or pneumothorax.? ? Mediastinum:? Mediastinal contours appear normal.? Heart size is normal.? ? Bones and chest wall:? No suspicious bony lesions.? Overlying soft tissues appear unremarkable.? ? IMPRESSION:? No acute pulmonary process. ? ? Dictated by: Liz Gurrola M.D. on 03/17/2022 at 16:36 ? ? Approved by: Liz Gurrola M.D. on 03/17/2022 at 16:36 ? MDM Narrative Medical decision making narrative: 51-year-old female with past medical history HIV that is currently undetectable, GERD, type 2 diabetes, fibromyalgia presents to the ED with persistent URI symptoms for 3 weeks. Concern for ACS versus pneumonia versus GERD versus ga stritis versus peptic ulcer disease versus H pylori infection versus pancreatitis versus other. Will obtain chest x-ray, EKG, labs, troponin, lipase. Will give Pepcid AC, GI cocktail for symptoms. Will reassess. Patient tested positive for rhino virus/enterovirus. Workup otherwise unremarkable. Supportive measures discussed with patient. ED return precautions discussed with patient. Patient verbalized understanding. Patient also recommended to follow-up with PCP/GI specialist to ensure that her H pylori was appropriately treated. <Gurwinder Sheets, DO - Last Filed: 03/17/22 18:28> Lab Data Labs: Lab Results 03/17/22 03/17/22 03/17/22 Range/Units 15:40 16:35 17:00 WBC 11.6 H (4.5-11.0) X10^3/uL RBC 4.50 (4.0-5.2) X10^6/uL Hgb 13.7 (12.0-16.0) g/dL Hct 40.9 (36-46) % MCV 90.8 (80-100) fL MCH 30.4 (26-34) PG MCHC 33.5 (30-36) % RDW 14.5 (11.6-14.8) % Plt Count 166 (150-400) X10^3/uL Neut % (Auto) 62.9 (50-75) % Lymph % (Auto) 31.1 (25-40) % [place] % (Auto) 3.6 (3-14) % Eos % (Auto) 1.4 L (2-4) % Baso % (Auto) 1.0 (0-2) % Neut # (Auto) 7300 H (6961-4297) /uL Lymph # (Auto) 3600 (0705-7103) /uL [place] # (Auto) 400 (0-900) /uL Eos # (Auto) 200 (0-450) /uL Baso # (Auto) 100 (0-100) /uL PT (10.1-12.7) SECONDS INR (0.9-1.3) APTT (26-36) SECONDS Sodium (137-145) mmol/L Potassium (3.4-5.1) mmol/L Chloride (98-107) mmol/L Carbon Dioxide (22-32) mmol/L BUN (7-17) mg/dL Creatinine (0.52-1.04) mg/dL Estimated GFR (>60) mL/min BUN/Creatinine Ratio (6-22) Glucose (70-100) mg/dL Calcium (8.4-10.2) mg/dL Magnesium (1.6-2.3) mg/dL Total Bilirubin (0.2-1.3) mg/dL AST (14-36) IU/L ALT (<35) IU/L Alkaline Phosphatase (38-126) U/L Total Creatine Kinase (30-135) U/L CK-MB (CK-2) CK-MB (CK-2) Rel Index Troponin I (0.01-0.034) ng/mL Total Protein (6.3-8.2) g/dL Albumin (3.5-5.0) g/dL Globulin (1.7-4.1) g/dL Albumin/Globulin Ratio (1.0-2.8) Lipase (23-300) U/L Chlamy pneumoniae PCR Not detected (Not Detect) Adenovirus (PCR) Not detected (Not Detect) B. pertussis DNA (PCR) Not detected (Not Detecte) B.parapertussis DNA PCR Not detected (Not Detecte) Coronavirus OC43 (PCR) Not detected (Not Detect) Coronavirus HKU1 (PCR) Not detected (Not Detect) Coronavirus 229E (PCR) Not detected (Not Detect) SARS-CoV-2 (PCR) Negative Not detected (Negative) Coronavirus NL63 (PCR) Not detected (Not Detect) Human Metapneumovir PCR Not detected (Not Detect) Influenza Type A (PCR) Not detected (Not Detect) Influenza Type B (PCR) Not detected (Not Detect) M. pneumoniae (PCR) Not detected (Not Detect) Parainfluenza 1 (PCR) Not detected (Not Detect) Parainfluenza 2 (PCR) Not detected (Not Detect) Parainfluenza 3 (PCR) Not detected (Not Detect) Parainfluenza 4 (PCR) Not detected (Not Detect) RSV (PCR) Not detected (Not Detect) Entero/Rhino (PCR) Detected H (Not Detect) 03/17/22 03/17/22 Range/Units 17:00 17:00 WBC (4.5-11.0) X10^3/uL RBC (4.0-5.2) X10^6/uL Hgb (12.0-16.0) g/dL Hct (36-46) % MCV (80-100) fL MCH (26-34) PG MCHC (30-36) % RDW (11.6-14.8) % Plt Count (150-400) X10^3/uL Neut % (Auto) (50-75) % Lymph % (Auto) (25-40) % [place] % (Auto) (3-14) % Eos % (Auto) (2-4) % Baso % (Auto) (0-2) % Neut # (Auto) (9728-4897) /uL Lymph # (Auto) (1046-0020) /uL [place] # (Auto) (0-900) /uL Eos # (Auto) (0-450) /uL Baso # (Auto) (0-100) /uL PT 12.2 (10.1-12.7) SECONDS INR 1.1 (0.9-1.3) APTT 28 (26-36) SECONDS Sodium 138 (137-145) mmol/L Potassium 3.9 (3.4-5.1) mmol/L Chloride 101 (98-107) mmol/L Carbon Dioxide 26 (22-32) mmol/L BUN 6 L (7-17) mg/dL Creatinine 0.73 (0.52-1.04) mg/dL Estimated GFR > 60 (>60) mL/min BUN/Creatinine Ratio 8.2 (6-22) Glucose 193 H (70-100) mg/dL Calcium 8.6 (8.4-10.2) mg/dL Magnesium 1.6 (1.6-2.3) mg/dL Total Bilirubin 0.4 (0.2-1.3) mg/dL AST 18 (14-36) IU/L ALT 17 (<35) IU/L Alkaline Phosphatase 75 (38-126) U/L Total Creatine Kinase < 20 L (30-135) U/L CK-MB (CK-2) TNP CK-MB (CK-2) Rel Index TNP Troponin I < 0.012 (0.01-0.034) ng/mL Total Protein 6.8 (6.3-8.2) g/dL Albumin 3.6 (3.5-5.0) g/dL Globulin 3.2 (1.7-4.1) g/dL Albumin/Globulin Ratio 1.1 (1.0-2.8) Lipase 96 (23-300) U/L Chlamy pneumoniae PCR (Not Detect) Adenovirus (PCR) (Not Detect) B. pertussis DNA (PCR) (Not Detecte) B.parapertussis DNA PCR (Not Detecte) Coronavirus OC43 (PCR) (Not Detect) Coronavirus HKU1 (PCR) (Not Detect) Coronavirus 229E (PCR) (Not Detect) SARS-CoV-2 (PCR) (Negative) Coronavirus NL63 (PCR) (Not Detect) Human Metapneumovir PCR (Not Detect) Influenza Type A (PCR) (Not Detect) Influenza Type B (PCR) (Not Detect) M. pneumoniae (PCR) (Not Detect) Parainfluenza 1 (PCR) (Not Detect) Parainfluenza 2 (PCR) (Not Detect) Parainfluenza 3 (PCR) (Not Detect) Parainfluenza 4 (PCR) (Not Detect) RSV (PCR) (Not Detect) Entero/Rhino (PCR) (Not Detect) Discharge Plan Departure Patient Disposition: Home Clinical Impression: Rhinovirus infection Instructions: DI for Viral Upper Respiratory Infection -- Adult Activity Restrictions/Additional Instructions: You were evaluated today for a cough, chest pain. Your chest x-ray, EKG, labs were normal. Your respiratory test was positive for rhino virus/enterovirus which is the cold virus. You may take ibuprofen, Tylenol, [id number] cough and cold medications for your symptoms. Please continue to stay well hydrated. Return to the ED if you experience worsening chest pain or shortness of breath. Prescriptions: No Action fluconazole 150 mg tablet 150 mg PO ONCE Qty: 2 0RF Rx Instructions: Repeat in 72 hours if still symptomatic propranolol 80 MG capsule,extended release 24 hr 80 mg PO QDAY Qty: 0 prazosin [Minipress] 1 MG capsule 1 mg PO BID Qty: 0 bupropion HCl 75 MG tablet 75 mg PO BID Qty: 0 albuterol sulfate [Ventolin HFA] 90 MCG/PUFF HFA aerosol inhaler 2 puff INH BIDP PRNQty: 0 clonazepam 1 MG tablet 1 mg PO TID Qty: 0 fluticasone propionate [Flonase Allergy Relief] 9.9 ML spray,suspension 1 spray Intranasal BID Qty: 0 hfcfoeio-axdwxhcckihm-btvagfi [Triumeq] 1 EACH tablet 1 tab PO QDAY Qty: 0 dexlansoprazole [Dexilant] 60 MG capsule,biphase delayed releas 60 mg PO QDAY Qty: 0 amitriptyline 50 MG tablet 50 mg PO HS Qty: 0 cetirizine 10 MG tablet 10 mg PO QDAY Qty: 0 glimepiride [Amaryl] 4 MG tablet 4 mg PO BID Qty: 0 losartan 25 MG tablet 25 mg PO QDAY Qty: 0 metformin [Fortamet] 1,000 MG tablet extended release 24hr 1,000 mg PO BEDTIME Qty: 0 tiotropium bromide [Spiriva with HandiHaler] 18 MCG capsule, w/inhalation device 1 puff INH QDAY Qty: 0 atorvastatin [Lipitor] 80 MG tablet 80 mg PO QDAY Qty: 0 gabapentin 800 MG tablet 800 mg PO TID Qty: 90 1RF meperidine [Demerol] 100 MG tablet 100 mg PO Q4P Qty: 60 0RF progesterone micronized [Prometrium] 100 mg capsule 100 mg PO QDAY Qty: 60 0RF Rx Instructions: Please schedule appointment for refills. Estring 2 mg (7.5 mcg /24 hour) ring 1 vaginalrin VAG [id number] Qty: 1 4RF estradiol 1 mg tablet See Rx Instructions .ROUTE .COMPLEX Qty: 90 3RF Dose Instruction: TAKE 1 TABLET BY MOUTH EVERY DAY Rx Instructions: TAKE 1 TABLET BY MOUTH EVERY DAY oxycodone 5 mg tablet 5 mg PO Q6H PRN (Reason: pain) Qty: 10 0RF clindamycin HCl 300 mg capsule 300 mg PO TID Qty: 21 0RF sucralfate [Carafate] 100 mg/mL suspension 10 ml PO QID Qty: 420 0RF Rx Instructions: swish in mouth and swallow; use after food/drink hydrocodone-acetaminophen 5-325 mg tablet 1 tab PO Q6H PRN (Reason: pain) Qty: 10 0RF promethazine 25 mg suppository 25 mg AL Q4-6H PRN (Reason: nausea and vomiting) Qty: 12 0RF pantoprazole [Protonix] 40 mg tablet,delayed release (DR/EC) 40 mg PO DAILY Qty: 30 0RF metoclopramide HCl [Reglan] 10 mg tablet 10 mg PO Q6H PRN (Reason: nausea and vomiting) Qty: 20 0RF hydrocodone-acetaminophen 5-325 mg tablet 1 tab PO Q6H PRN (Reason: pain) Qty: 10 0RF hydrocodone-acetaminophen 5-325 mg tablet 1 tab PO Q6H PRN (Reason: pain) Qty: 10 0RF hydrocodone-acetaminophen 5-325 mg tablet 1 tab PO Q6H PRN (Reason: pain) Qty: 10 0RF metformin 500 mg Tablet 500 mg PO DAILY Rx Instructions: take in the morning Lantus Solostar U-100 Insulin 100 unit/mL (3 mL) insulin pen 25 unit SUBCUT QPM Qty: 15 0RF doxycycline hyclate 100 mg tablet 100 mg PO BID Qty: 20 0RF pantoprazole [Protonix] 40 mg tablet,delayed release (DR/EC) 40 mg PO DAILY Qty: 30 0RF ondansetron 4 mg tablet,disintegrating 4 mg PO Q8H PRN (Reason: nausea and vomiting) Qty: 10 0RF sucralfate [Carafate] 1 gram tablet 1 g PO QACHS Qty: 45 0RF albuterol sulfate 90 mcg/actuation HFA aerosol inhaler 2 puff inhalation QID PRN (Reason: shortness of breath or wheezing) Qty: 8.5 0RF prednisone 20 mg tablet 20 mg PO DAILY Qty: 5 0RF <Gurwinder Sheets, DO - Last Filed: 03/17/22 18:28> [facility] ED Attending [facility] Attestation: Dr Sheets Co-Sign Statement: I was available for consultation during this patient's emergency department visit. This chart is signed by myself for administrative purposes only. I did not have direct contact with this patient during this visit. They were seen independently by the APC.
[2022-03-17] MEDS: FAMOTIDINE 20 MG TABLET PO (16:51)
[2022-03-17 17:22] LABS: Add Manual Diff / Slide Review NO; Basophils Absolute Auto 100 /uL (0-100); Eosinophils Absolute Auto 200 /uL (0-450); Eosinophils Percent Auto 1.4 % (2-4); Hematocrit 40.9 % (36-46); Hemoglobin 13.7 g/dL (12.0-16.0); Lymphocytes Absolute Auto 3600 /uL (1100-4500); Lymphocytes Percent Auto 31.1 % (25-40); Mean Corpuscular HGB Conc 33.5 % (30-36); Mean Corpuscular Hemoglobin 30.4 PG (26-34); Mean Corpuscular Volume 90.8 fL (80-100); Monocytes Absolute Auto 400 /uL (0-900); Monocytes Percent Auto 3.6 % (3-14); Neutrophils Absolute Auto 7300 /uL (1500-7000); Neutrophils Percent Auto 62.9 % (50-75); Platelet Count 166 X10^3/uL (150-400); Red Cell Distribution Width 14.5 % (11.6-14.8); White Blood Cell Count 11.6 X10^3/uL (4.5-11.0)
[2022-03-17 17:25] LABS: INR 1.1 (0.9-1.3); Prothrombin Time 12.2 SECONDS (10.1-12.7)
[2022-03-17 17:28] LABS: PTT Partial Thromboplastin Tim 28 SECONDS (26-36)
[2022-03-17 17:31] LABS: Alanine Aminotransferase 17 IU/L (<35); Albumin 3.6 g/dL (3.5-5.0); Albumin Globulin Ratio 1.1 (1.0-2.8); Alkaline Phosphatase 75 U/L (38-126); Aspartate Aminotransferase 18 IU/L (14-36); BUN Creatinine Ratio 8.2 (6-22); Bilirubin Total 0.4 mg/dL (0.2-1.3); Blood Urea Nitrogen 6 mg/dL (7-17); Calcium 8.6 mg/dL (8.4-10.2); Carbon Dioxide 26 mmol/L (22-32); Chloride 101 mmol/L (98-107); Creatine Kinase < 20 U/L (30-135); Estimated Glomerular Filt Rate > 60 mL/min (>60); Globulin 3.2 g/dL (1.7-4.1); Glucose 193 mg/dL (70-100); HEMOLYSIS < 15 (0-50); Lipase 96 U/L (23-300); Magnesium 1.6 mg/dL (1.6-2.3); Potassium 3.9 mmol/L (3.4-5.1); Sodium 138 mmol/L (137-145); Total Protein 6.8 g/dL (6.3-8.2)
[2022-03-17 17:42] LABS: Troponin I < 0.012 ng/mL (0.01-0.034)
[2022-03-17 18:07] LABS: Adenovirus Not Detected (Not Detect); B. parapertussis Not Detected (Not Detecte); Bordetella pertussis Not Detected (Not Detecte); Chlamydophila pneumoniae Not Detected (Not Detect); Coronavirus 229E Not Detected (Not Detect); Coronavirus HKU1 Not Detected (Not Detect); Coronavirus NL 63 Not Detected (Not Detect); Coronavirus OC43 Not Detected (Not Detect); Human Metapneumovirus Not Detected (Not Detect); Human Rhinovirus/Enterovirus Detected (Not Detect); Influenza A Not Detected (Not Detect); Influenza B Not Detected (Not Detect); Mycoplasma pneumoniae Not Detected (Not Detect); Parainfluenza Virus 1 Not Detected (Not Detect); Parainfluenza Virus 2 Not Detected (Not Detect); Parainfluenza Virus 3 Not Detected (Not Detect); Parainfluenza Virus 4 Not Detected (Not Detect); Respiratory Syncytial Virus Not Detected (Not Detect); SARS- CoV-2 Not Detected (Not Detecte)
== END 2022-03-17 18:31 | disposition home or self-care (01) ==
PROVIDERS: Emergency Medicine; Emergency Provider Student in an Organized Health Care Education/Training Program
DX: B34.8 Other viral infections of unspecified site (principal); R07.9 Chest pain, unspecified; R05.9 Cough, unspecified; Z20.822 Contact with and (suspected) exposure to COVID-19
CPT/HCPCS: 71045; 80053; 82550; 83690; 83735; 84484; 85025; 85610; 85730; 87633; 87635; 93005; 99283; 99284; C9803; A9270

== ENCOUNTER 2022-06-27 04:38 | Emergency (ER) | payer MEDICARE, OTHER, SELFPAY ==
[2022-06-27 04:45] VITALS: BP 119/57; PULSE 82; RESP 16; TEMP 36.9; O2SAT 98; BMI 25.8
[2022-06-27 04:49] LABS: Add Manual Diff / Slide Review NO; Basophils Absolute Auto 100 /uL (0-100); Basophils Percent Auto 0.9 % (0-2); Eosinophils Absolute Auto 400 /uL (0-450); Eosinophils Percent Auto 2.9 % (2-4); Hematocrit 47.9 % (36-46); Hemoglobin 16.1 g/dL (12.0-16.0); Lymphocytes Absolute Auto 6500 /uL (1100-4500); Lymphocytes Percent Auto 45.4 % (25-40); Mean Corpuscular HGB Conc 33.6 % (30-36); Mean Corpuscular Hemoglobin 30.6 PG (26-34); Mean Corpuscular Volume 91.1 fL (80-100); Monocytes Absolute Auto 800 /uL (0-900); Monocytes Percent Auto 5.7 % (3-14); Neutrophils Absolute Auto 6500 /uL (1500-7000); Neutrophils Percent Auto 45.1 % (50-75); Platelet Count 275 X10^3/uL (150-400); Red Blood Cell Count 5.26 X10^6/uL (4.0-5.2); Red Cell Distribution Width 13.9 % (11.6-14.8); White Blood Cell Count 14.3 X10^3/uL (4.5-11.0)
--- NOTE | 2022-06-27 04:57 | DI.CT.S_ITS ---
PROCEDURE: CT ABDOMEN PELVIS W CON INDICATIONS: severe RLQ pain TECHNIQUE: After the administration of IV contrast, axial sections were acquired from the lung bases to the pubic symphysis. Coronal and sagittal reformats were performed. For radiation dose reduction, the following was used: automated exposure control, adjustment of mA and/or kV according to patient size. COMPARISON: [facility], CT, CT ABDOMEN PELVIS W CON, 02/04/2022, 23:49. FINDINGS: Image quality: Excellent. Lung bases: Unremarkable. Heart: No significant findings. ABDOMEN: Liver: Liver is enlarged measuring 21.4 cm with diffuse steatosis. Unchanged low-attenuation hepatic focus. This is likely simple cyst. Gallbladder: Removed. Biliary ducts: Unremarkable. Pancreas: Unremarkable. Spleen: Unremarkable. Adrenal Glands: Unremarkable. Kidneys and Ureters: There is mild appearance of left hydronephrosis and hydroureter. 2 mm calcification at the right ureterovesicular junction. Stomach and Bowel: Stomach, small bowel loops, and colon are unremarkable. Appendix is normal. Peritoneum: No abnormal intraperitoneal fluid. No free air. Ventral Wall: No hernia. Abdominal Nodes: No retroperitoneal or mesenteric adenopathy by size criteria. Vessels: Aorta and inferior vena cava are normal in size. PELVIS: Pelvic Organs: Unremarkable. Bladder: Unremarkable. Pelvic Nodes: No enlarged lymph nodes. Miscellaneous: No inguinal hernias are seen. Bones: L5-S1 posterior fusion. IMPRESSION: Mild right hydronephrosis and hydroureter with 2 mm calcification at the right ureterovesicular junction. The above findings are concordant with preliminary report. Dictated by: Liz Gurrola M.D. on 06/27/2022 at 8:01 Approved by: Liz Gurrola M.D. on 06/27/2022 at 8:03
[2022-06-27 05:02] LABS: Alanine Aminotransferase 19 IU/L (<35); Albumin 4.7 g/dL (3.5-5.0); Albumin Globulin Ratio 1.1 (1.0-2.8); Alkaline Phosphatase 95 U/L (38-126); Aspartate Aminotransferase 22 IU/L (14-36); BUN Creatinine Ratio 11.7 (6-22); Bilirubin Total 0.6 mg/dL (0.2-1.3); Blood Urea Nitrogen 9 mg/dL (7-17); Calcium 9.5 mg/dL (8.4-10.2); Carbon Dioxide 36 mmol/L (22-32); Chloride 94 mmol/L (98-107); Estimated Glomerular Filt Rate > 60 mL/min (>60); Globulin 4.2 g/dL (1.7-4.1); Glucose 165 mg/dL (70-100); HEMOLYSIS < 15 (0-50); Lipase 356 U/L (23-300); Potassium 4.5 mmol/L (3.4-5.1); Sodium 137 mmol/L (137-145); Total Protein 8.9 g/dL (6.3-8.2)
[2022-06-27 05:08] LABS: Lactate (Lactic Acid) 1.1 mmol/L (0.7-2.1)
[2022-06-27] MEDS: HYDROMORPHONE 0.5 MG INJ IV (05:23)
[2022-06-27] MEDS: SODIUM CHLORIDE 0.9% 1,000 ML 1000 ML IV (05:23)
--- NOTE | 2022-06-27 05:42 | ED_ITS ---
HPI - Abdominal Pain General Chief Complaint: Abdominal Pain Stated Complaint: ABD Pain Time Seen by Provider: 06/27/22 04:42 Source: patient and EMS Mode of arrival: EMS History of Present Illness HPI narrative: 51-year-old female smoker with history of type 2 diabetes, COPD, depression, fibromyalgia, spinal stenosis, HIV, ovarian cyst presents with a sudden onset of right flank and lower quadrant pain that woke her from sleep prior to arrival. She states the pain is very severe and seems to come and go with a mind of its own. She denies any fever or chills. She is had no runny nose, sore throat or cough. She denies vomiting but states she is nauseated when the pain becomes more significant. She denies dysuria, frequency or urgency. She was given fentanyl EN route by medics Related Data Home Medications Medication Instructions Recorded Confirmed prazosin 1 mg capsule (Minipress) 1 mg PO BID ##0 03/10/16 05/01/21 propranolol 80 mg capsule,24 80 mg PO QDAY ##0 03/10/16 05/01/21 hr,extended release albuterol sulfate 90 mcg/actuation 2 puff INH BIDP PRN ##0 09/03/16 05/01/21 aerosol inhaler (Ventolin HFA) bupropion HCl 75 mg tablet 75 mg PO BID ##0 09/03/16 05/01/21 clonazepam 1 mg tablet 1 mg PO TID ##0 09/03/16 05/01/21 fluticasone propionate 50 1 spray intranasal BID ##0 09/03/16 05/01/21 mcg/actuation nasal spray,suspension (Flonase Allergy Relief) abacavir 600 mg-dolutegravir 50 1 tab PO QDAY ##0 11/24/16 05/01/21 mg-lamivudine 300 mg tablet (Triumeq) amitriptyline 50 mg tablet 50 mg PO HS ##0 11/24/16 05/01/21 cetirizine 10 mg tablet 10 mg PO QDAY ##0 11/24/16 05/01/21 dexlansoprazole 60 mg 60 mg PO QDAY ##0 11/24/16 05/01/21 capsule,biphase delayed release (Dexilant) glimepiride 4 mg tablet (Amaryl) 4 mg PO BID ##0 11/24/16 05/01/21 losartan 25 mg tablet 25 mg PO QDAY ##0 11/24/16 05/01/21 metformin 1,000 mg tablet,extended 1,000 mg PO BEDTIME ##0 11/24/16 05/01/21 release 24hr (Fortamet) tiotropium bromide 18 mcg capsule 1 puff INH QDAY ##0 11/24/16 05/01/21 with inhalation device (Spiriva with HandiHaler) atorvastatin 80 mg tablet (Lipitor) 80 mg PO QDAY ##0 12/16/16 05/01/21 metformin 500 mg tablet 500 mg PO DAILY 05/01/20 05/01/21 Previous Rx's Medication Instructions Recorded gabapentin 800 mg tablet 800 mg PO TID ##90 12/27/16 meperidine 100 mg tablet (Demerol) 100 mg PO Q4P #60 tabs 12/27/16 progesterone micronized 100 mg 100 mg PO QDAY #60 caps 08/16/19 capsule (Prometrium) estradiol 2 mg (7.5 mcg/24 hour) 1 vaginalrin vaginal [id number] #1 ea 02/15/20 vaginal ring (Estring) insulin glargine 100 unit/mL (3 25 unit (0.25 mL) SUBCUT QPM #15 mL 05/10/20 mL) subcutaneous pen (Lantus Solostar U-100 Insulin) fluconazole 150 mg tablet 150 mg PO ONCE #2 tabs 05/18/20 clindamycin HCl 300 mg capsule 300 mg PO TID #21 caps 06/07/20 oxycodone 5 mg tablet 5 mg PO Q6H PRN pain #10 tabs 06/07/20 doxycycline hyclate 100 mg tablet 100 mg PO BID #20 tabs 07/08/20 hydrocodone 5 mg-acetaminophen 325 1 tab PO Q6H PRN pain #10 tabs 03/25/21 mg tablet sucralfate 100 mg/mL oral 10 ml PO QID #420 mL 03/25/21 suspension (Carafate) ondansetron 4 mg disintegrating 4 mg PO Q8H PRN nausea and 06/25/21 tablet vomiting #10 tabs pantoprazole 40 mg tablet,delayed 40 mg PO DAILY #30 tabs 06/25/21 release (Protonix) sucralfate 1 gram tablet (Carafate) 1 g PO QACHS before meals, for 07/17/21 stomach barrier #45 tabs metoclopramide HCl 10 mg tablet 10 mg PO Q6H PRN nausea and 09/06/21 (Reglan) vomiting #20 tabs pantoprazole 40 mg tablet,delayed 40 mg PO DAILY #30 tabs 09/06/21 release (Protonix) promethazine 25 mg rectal 25 mg AL Q4-6H PRN nausea and 09/06/21 suppository vomiting #12 ea estradiol 1 mg tablet See Rx Instructions .Route 11/03/21 .COMPLEX #90 tabs hydrocodone 5 mg-acetaminophen 325 1 tab PO Q6H PRN pain #10 tabs 11/24/21 mg tablet hydrocodone 5 mg-acetaminophen 325 1 tab PO Q6H PRN pain #10 tabs 11/24/21 mg tablet hydrocodone 5 mg-acetaminophen 325 1 tab PO Q6H PRN pain #10 tabs 11/24/21 mg tablet albuterol sulfate 90 mcg/actuation 2 puff inhalation QID PRN 03/07/22 aerosol inhaler shortness of breath or wheezing #8.5 grams prednisone 20 mg tablet 20 mg PO DAILY #5 tabs 03/07/22 hydrocodone 5 mg-acetaminophen 325 1 tab PO Q4-6H PRN pain #10 tabs 06/27/22 mg tablet ketorolac 10 mg tablet 10 mg PO Q6H PRN pain #14 tabs 06/27/22 ondansetron 4 mg disintegrating 4 mg PO TID-QID PRN nausea and 06/27/22 tablet vomiting #10 tabs tamsulosin 0.4 mg capsule (Flomax) 0.4 mg PO DAILY #30 caps 06/27/22 Allergies Allergy/AdvReac Type Severity Reaction Status Date / Time levofloxacin [LEVOFLOXACIN] Allergy Severe hives Verified 03/07/22 09:34 Sulfa (Sulfonamide Allergy Severe rash Verified 03/07/22 09:34 Antibiotics) [SULFA (SULFONAMIDE ANTIBIOTICS)] amoxicillin [From AUGMENTIN] Allergy Mild rash Verified 03/07/22 09:34 ciprofloxacin [From CIPRO] Allergy Mild rash Verified 03/07/22 09:34 clarithromycin [From BIAXIN] Allergy Mild rash Verified 03/07/22 09:34 clavulanic acid Allergy Mild rash Verified 03/07/22 09:34 [From AUGMENTIN] morphine [MORPHINE] AdvReac Mild n/v Verified 03/07/22 09:34 pregabalin [PREGABALIN] AdvReac Mild lost voice Verified 03/07/22 09:34 Review of Systems Review of Systems Narrative: GENERAL: Denies chills, fatigue, malaise, fever, sweats. HEENT: Denies sinus pain, ear pain, sore throat, difficulty swallowing, dizziness. RESPIRATORY: Denies dyspnea, cough, wheezing, hemoptysis, sputum. CARDIOVASCULAR: Denies chest pain, palpitations, orthopnea, edema, GASTROINTESTINAL: See HPI : See HPI MUSCULOSKELETAL: denies weakness, joint pain, or bony pain SKIN: Denies rash, skin lesions, or other NEUROLOGIC: Denies weakness, headache, numbness, change in speech, confusion, seizures, incoordination. PSYCHIATRIC: No concerning psychosocial issues. 12 point review of systems is negative except for those stated above Patient History Medical History Anxiety Arthritis Bipolar disorder Depression Diabetes mellitus Fibroids GERD (gastroesophageal reflux disease) History of gastrointestinal symptoms HIV (human immunodeficiency virus infection) Hypertension PTSD (post-traumatic stress disorder) Surgical History History of cystoscopy (2013) History of stress incontinence procedure using tension free vaginal tape (2013) S/P functional endoscopic sinus surgery (2002) Status post arthroscopy (2003) Status post cholecystectomy (2011) Status post laparoscopic supracervical hysterectomy (2011) Family History Father Congestive heart failure Social History Smoking Status: Current every day smoker Smoking Status: Current every day smoker tobacco type: cigarettes alcohol intake frequency: holidays/special occasions only Substance Use Type: marijuana Exam Narrative Exam Narrative: GENERAL: [51] year old patient appears stated age. Well-developed patient, in tearful, clearly very uncomfortable and rubbing her right lower quadrant HEAD: Atraumatic. Normocephalic. EYES: Pupils equal round and reactive. Extraocular motions intact. No scleral icterus. No injection or drainage. ENT: Nose without bleeding, purulent drainage. Throat without erythema, tonsillar hypertrophy or exudate. Airway patent. NECK: Trachea midline. Non tender CARDIOVASCULAR: Regular rate and rhythm without murmurs, gallops, or rubs. RESPIRATORY: Clear to auscultation. Breath sounds equal bilaterally. No wheezes, rales, or rhonchi. GASTROINTESTINAL: Abdomen soft, non-tender, nondistended. EXTREMITIES: No edema or joint tenderness. BACK: Nontender without deformity or crepitance. No flank tenderness. NEURO: AOx3. SKIN: No rash or erythema of visible areas Initial Vital Signs Initial Vital Signs: Vital Signs Temperature 98.4 F 06/27/22 04:45 Pulse Rate 82 06/27/22 04:45 Respiratory Rate 16 06/27/22 04:45 Blood Pressure 119/57 L 06/27/22 04:45 Pulse Oximetry 98 06/27/22 04:45 Oxygen Delivery Method Room Air 06/27/22 04:45 Course Orders Ordered: ED Orders 06/27/22 04:30 Complete Blood Count AUTO DIFF Stat Comprehensive Metabolic Panel Stat Lactate (Lactic Acid) Stat Lipase Stat 06/27/22 04:44 EKG-12 Lead Stat 06/27/22 04:57 CT abdomen pelvis w con Stat Sodium Chloride (Normal Saline 0.9%) 1,000 mls @ 1,000 mls/hr IV BOLUS ONE Stop: 06/27/22 05:55 Last Admin: 06/27/22 05:23 Dose: 1,000 mls/hr Documented By: NICHOLAS Discontinued Medications Hydrocodone Bitart/Acetaminophen (Hydrocodone/Acet 5/325 Prepack) 1 bottle MISC SEEINSTR ONE Stop: 06/27/22 05:37 Hydromorphone HCl (Hydromorphone 0.5 Mg Inj) 0.5 mg IV NOW ONE Stop: 06/27/22 04:57 Last Admin: 06/27/22 05:23 Dose: 0.5 mg Documented By: NICHOLAS Ketorolac Tromethamine (Ketorolac 30 Mg/Ml Vial) 15 mg IV NOW ONE Stop: 06/27/22 05:25 Ondansetron HCl (Ondansetron 4 Mg Odt Prepack) 1 bottle MISC SEEINSTR ONE Stop: 06/27/22 05:37 Tamsulosin HCl (Tamsulosin 0.4 Mg Capsule) 0.4 mg PO NOW ONE Stop: 06/27/22 05:25 Reevaluation(s) Reevaluation #1: Significant improvement after above-stated therapies Vital Signs Vital signs: Vital Signs - 8 hr 06/27/22 04:45 Temperature 98.4 F Pulse Rate 82 Respiratory Rate 16 Blood Pressure 119/57 L Pulse Oximetry 98 Oxygen Delivery Method Room Air MDM - Abdominal Pain Lab Data 06/27/22 04:30 06/27/22 04:30 Labs: Lab Results 06/27/22 06/27/22 06/27/22 Range/Units 04:30 04:30 04:30 WBC 14.3 H (4.5-11.0) X10^3/uL RBC 5.26 H (4.0-5.2) X10^6/uL Hgb 16.1 H (12.0-16.0) g/dL Hct 47.9 H (36-46) % MCV 91.1 (80-100) fL MCH 30.6 (26-34) PG MCHC 33.6 (30-36) % RDW 13.9 (11.6-14.8) % Plt Count 275 (150-400) X10^3/uL Neut % (Auto) 45.1 L (50-75) % Lymph % (Auto) 45.4 H (25-40) % [place] % (Auto) 5.7 (3-14) % Eos % (Auto) 2.9 (2-4) % Baso % (Auto) 0.9 (0-2) % Neut # (Auto) 6500 (6248-6477) /uL Lymph # (Auto) 6500 H (2640-6389) /uL [place] # (Auto) 800 (0-900) /uL Eos # (Auto) 400 (0-450) /uL Baso # (Auto) 100 (0-100) /uL Sodium 137 (137-145) mmol/L Potassium 4.5 (3.4-5.1) mmol/L Chloride 94 L (98-107) mmol/L Carbon Dioxide 36 H (22-32) mmol/L BUN 9 (7-17) mg/dL Creatinine 0.77 (0.52-1.04) mg/dL Estimated GFR > 60 (>60) mL/min BUN/Creatinine Ratio 11.7 (6-22) Glucose 165 H (70-100) mg/dL Lactate 1.1 (0.7-2.1) mmol/L Calcium 9.5 (8.4-10.2) mg/dL Total Bilirubin 0.6 (0.2-1.3) mg/dL AST 22 (14-36) IU/L ALT 19 (<35) IU/L Alkaline Phosphatase 95 (38-126) U/L Total Protein 8.9 H (6.3-8.2) g/dL Albumin 4.7 (3.5-5.0) g/dL Globulin 4.2 H (1.7-4.1) g/dL Albumin/Globulin Ratio 1.1 (1.0-2.8) Lipase 356 H (23-300) U/L Point of care testing: Urine Dip Bedside Urine Glucose Negative Bedside Urine Bilirubin - Negative Bedside Urine Ketone - Negative Urine Specific [place] 1.010 Bedside Urine Occult Blood +++ Bedside Urine pH 6 Bedside Urine Protein - Negative Bedside Urine Urobilinogen - Negative Bedside Urine Nitrite - Negative Bedside Urine Leukocytes - Negative Esterase Imaging Data CT scan - abdomen/pelvis: Radiologist's Impression: 2 mm right ureterovesicular junction stone with mild right hydro, no appendicitis MDM Narrative Medical decision making narrative: CC: 51-year-old female with right lower quadrant pain, colicky in nature Complicating co-morbidities: Age, diabetes, HIV Data collected from: Patient Medical records reviewed: Prior notes reviewed in our EMR Differential considered, but not limited to: Kidney stone, bowel obstruction, appendicitis, ovarian problem versus other Exam documented above, pertinent findings include: Clearly uncomfortable, minim al if any reproducible pain Lab Test results independently reviewed as above. Pertinent findings: Slight leukocytosis without significant left shift, electrolytes and renal function within normal, urine without signs of infection Independently reviewed EKG as above Imaging studies independently reviewed: CT abdomen pelvis with IV contrast demonstrates 2 mm stone at the right UVJ with mild hydro, no appendicitis, bowel obstruction or perforation Treatments: Dilaudid, saline, Toradol, Flomax Re-evaluations: Significant improvement in pain Discussion: Patient with sudden onset colicky type right lower quadrant and flank pain with hematuria. Labs are largely very reassuring, CT demonstrates a 2 mm stone. Patient does not have evidence of infection in the urine or kidney failure on serum labs. Her pain is well controlled and she is tolerating orals. She is appropriate for discharge with Flomax, Toradol, hydrocodone and Zofran Disposition: see below, along with detailed discharge instructions that have been reviewed with patient as well as indications for ED re-evaluation and additional outpatient follow up Discharge Plan Departure Patient Disposition: Home Clinical Impression: Kidney stone Instructions: DI for Kidney Stones Activity Restrictions/Additional Instructions: *You have been diagnosed with [right-sided 2 mm kidney stone] *What to do: *Please continue to take your regular medications as directed. [ x] New medication prescriptions sent to your pharmacy: [ [facility]] [ ] New medication written as a paper prescription [ ] No new medications given *Please follow up with your primary care provider in 2-3 days, call for an appointment. Let them know you were seen in the Emergency Department and that we ask that you be seen in follow up. We will electronically transmit a record of today's note if your PCP is in our system * as we discussed I have included contact information for Dr. Zavala, the urologist on-call. Please contact his office and let them know you were seen in the emergency department and we would like you seen in follow-up *If you do not have a primary care provider please contact the [facility] Resource line at [phone]. They will ask some questions about your medical history and help get you set up with a doctor in the community. *Return to Emergency Department if you should have any new, worsening or concerning symptoms, such as [fever greater than 101 F, shaking chills, worsening pain, persistent vomiting or other bothersome symptoms] Prescriptions: New hydrocodone-acetaminophen 5-325 mg tablet 1 tab PO Q4-6H PRN (Reason: pain) Qty: 10 0RF ketorolac 10 mg tablet 10 mg PO Q6H PRN (Reason: pain) Qty: 14 0RF tamsulosin [Flomax] 0.4 mg capsule 0.4 mg PO DAILY Qty: 30 0RF ondansetron 4 mg tablet,disintegrating 4 mg PO TID-QID PRN (Reason: nausea and vomiting) Qty: 10 0RF No Action fluconazole 150 mg tablet 150 mg PO ONCE Qty: 2 0RF Rx Instructions: Repeat in 72 hours if still symptomatic propranolol 80 MG capsule,extended release 24 hr 80 mg PO QDAY Qty: 0 prazosin [Minipress] 1 MG capsule 1 mg PO BID Qty: 0 bupropion HCl 75 MG tablet 75 mg PO BID Qty: 0 albuterol sulfate [Ventolin HFA] 90 MCG/PUFF HFA aerosol inhaler 2 puff INH BIDP PRNQty: 0 clonazepam 1 MG tablet 1 mg PO TID Qty: 0 fluticasone propionate [Flonase Allergy Relief] 9.9 ML spray,suspension 1 spray Intranasal BID Qty: 0 [id number] [Triumeq] 1 EACH tablet 1 tab PO QDAY Qty: 0 dexlansoprazole [Dexilant] 60 MG capsule,biphase delayed releas 60 mg PO QDAY Qty: 0 amitriptyline 50 MG tablet 50 mg PO HS Qty: 0 cetirizine 10 MG tablet 10 mg PO QDAY Qty: 0 glimepiride [Amaryl] 4 MG tablet 4 mg PO BID Qty: 0 losartan 25 MG tablet 25 mg PO QDAY Qty: 0 metformin [Fortamet] 1,000 MG tablet extended release 24hr 1,000 mg PO BEDTIME Qty: 0 tiotropium bromide [Spiriva with HandiHaler] 18 MCG capsule, w/inhalation device 1 puff INH QDAY Qty: 0 atorvastatin [Lipitor] 80 MG tablet 80 mg PO QDAY Qty: 0 gabapentin 800 MG tablet 800 mg PO TID Qty: 90 1RF meperidine [Demerol] 100 MG tablet 100 mg PO Q4P Qty: 60 0RF progesterone micronized [Prometrium] 100 mg capsule 100 mg PO QDAY Qty: 60 0RF Rx Instructions: Please schedule appointment for refills. Estring 2 mg (7.5 mcg /24 hour) ring 1 vaginalrin VAG [id number] Qty: 1 4RF estradiol 1 mg tablet See Rx Instructions .ROUTE .COMPLEX Qty: 90 3RF Dose Instruction: TAKE 1 TABLET BY MOUTH EVERY DAY Rx Instructions: TAKE 1 TABLET BY MOUTH EVERY DAY oxycodone 5 mg tablet 5 mg PO Q6H PRN (Reason: pain) Qty: 10 0RF clindamycin HCl 300 mg capsule 300 mg PO TID Qty: 21 0RF sucralfate [Carafate] 100 mg/mL suspension 10 ml PO QID Qty: 420 0RF Rx Instructions: swish in mouth and swallow; use after food/drink hydrocodone-acetaminophen 5-325 mg tablet 1 tab PO Q6H PRN (Reason: pain) Qty: 10 0RF promethazine 25 mg suppository 25 mg AL Q4-6H PRN (Reason: nausea and vomiting) Qty: 12 0RF pantoprazole [Protonix] 40 mg tablet,delayed release (DR/EC) 40 mg PO DAILY Qty: 30 0RF metoclopramide HCl [Reglan] 10 mg tablet 10 mg PO Q6H PRN (Reason: nausea and vomiting) Qty: 20 0RF hydrocodone-acetaminophen 5-325 mg tablet 1 tab PO Q6H PRN (Reason: pain) Qty: 10 0RF hydrocodone-acetaminophen 5-325 mg tablet 1 tab PO Q6H PRN (Reason: pain) Qty: 10 0RF hydrocodone-acetaminophen 5-325 mg tablet 1 tab PO Q6H PRN (Reason: pain) Qty: 10 0RF metformin 500 mg Tablet 500 mg PO DAILY Rx Instructions: take in the morning Lantus Solostar U-100 Insulin 100 unit/mL (3 mL) insulin pen 25 unit SUBCUT QPM Qty: 15 0RF doxycycline hyclate 100 mg tablet 100 mg PO BID Qty: 20 0RF pantoprazole [Protonix] 40 mg tablet,delayed release (DR/EC) 40 mg PO DAILY Qty: 30 0RF ondansetron 4 mg tablet,disintegrating 4 mg PO Q8H PRN (Reason: nausea and vomiting) Qty: 10 0RF sucralfate [Carafate] 1 gram tablet 1 g PO QACHS Qty: 45 0RF albuterol sulfate 90 mcg/actuation HFA aerosol inhaler 2 puff inhalation QID PRN (Reason: shortness of breath or wheezing) Qty: 8.5 0RF prednisone 20 mg tablet 20 mg PO DAILY Qty: 5 0RF Referrals: Raudel Zavala MD [Physician] - Stand Alone Forms: Patient Portal/API
[2022-06-27] MEDS: KETOROLAC 30 MG/ML VIAL 15 MG IV (05:53)
[2022-06-27] MEDS: TAMSULOSIN 0.4 MG CAPSULE PO (05:54)
[2022-06-27] MEDS: HYDROCODONE/ACET 5/325 PREPACK 1 BOTTLE MISC (05:54)
[2022-06-27] MEDS: ONDANSETRON 4 MG ODT PREPACK 1 BOTTLE MISC (05:54)
[2022-06-27 05:56] VITALS: PULSE 68; O2SAT 98
[2022-06-27 05:58] VITALS: PULSE 66; O2SAT 97
[2022-06-27 06:00] VITALS: BP 113/56; PULSE 67; RESP 16; O2SAT 97
[2022-06-27 06:16] VITALS: TEMP 36
== END 2022-06-27 06:18 | disposition home or self-care (01) ==
PROVIDERS: Emergency Provider Emergency Medicine
DX: N20.0 Calculus of kidney (principal); R31.9 Hematuria, unspecified; Z79.899 Other long term (current) drug therapy
CPT/HCPCS: 36415; 74177; 80053; 81003; 83605; 83690; 85025; 93005; 96361; 96374; 96375; 99284; J1170; J1885; Q9967

== ENCOUNTER 2022-07-19 15:15 | Emergency (ER) | payer MEDICARE, OTHER, SELFPAY ==
[2022-07-19 15:27] VITALS: BP 132/66; PULSE 92; RESP 18; TEMP 36.3; O2SAT 98; BMI 24.7
[2022-07-19 15:50] VITALS: PULSE 88; O2SAT 99
[2022-07-19 15:51] VITALS: BP 125/58; PULSE 86; O2SAT 99
[2022-07-19 16:00] VITALS: BP 114/67; PULSE 86; O2SAT 94
[2022-07-19] MEDS: ONDANSETRON 4 MG ODT SL (16:15)
[2022-07-19 16:30] VITALS: BP 113/71; PULSE 92; O2SAT 96
--- NOTE | 2022-07-19 16:32 | ED_ITS ---
HPI - Female Genitourinary General Chief complaint: Urogenital-Female Stated complaint: groin and lower back pain Time Seen by Provider: 07/19/22 16:15 Source: patient Mode of arrival: Family Vehicle History of Present Illness HPI Narrative: Patient is a 51-year-old female history of HIV well controlled, diabetes presenting today with a left-sided flank and groin pain. She was seen evaluated here on 06/27/2022 diagnosed with a 2 mm UVJ. She followed up with her PCP but can not get into Urology until September. She actually is no longer having pain on the right side she is having pain on the left. She has known left-sided kidney stones which were seen on a CT on 02/04/2022 she had 2 left renal stones 7 mm and 4 mm. They were not seen or identified on the most recent CT. Patient has not had any fever or chills. She is been taking her pain medication at home with minimal relief. No nausea vomiting or fever. No painful or frequent urination. He is having pain radiating from her left flank into her groin similar to all other previous kidney stones. He denies any chest pain palpitations or other symptoms. Related Data Home Medications Medication Instructions Recorded Confirmed prazosin 1 mg capsule (Minipress) 1 mg PO BID ##0 03/10/16 05/01/21 propranolol 80 mg capsule,24 80 mg PO QDAY ##0 03/10/16 05/01/21 hr,extended release albuterol sulfate 90 mcg/actuation 2 puff INH BIDP PRN ##0 09/03/16 05/01/21 aerosol inhaler (Ventolin HFA) bupropion HCl 75 mg tablet 75 mg PO BID ##0 09/03/16 05/01/21 clonazepam 1 mg tablet 1 mg PO TID ##0 09/03/16 05/01/21 fluticasone propionate 50 1 spray intranasal BID ##0 09/03/16 05/01/21 mcg/actuation nasal spray,suspension (Flonase Allergy Relief) abacavir 600 mg-dolutegravir 50 1 tab PO QDAY ##0 11/24/16 05/01/21 mg-lamivudine 300 mg tablet (Triumeq) amitriptyline 50 mg tablet 50 mg PO HS ##0 11/24/16 05/01/21 cetirizine 10 mg tablet 10 mg PO QDAY ##0 11/24/16 05/01/21 dexlansoprazole 60 mg 60 mg PO QDAY ##0 11/24/16 05/01/21 capsule,biphase delayed release (Dexilant) glimepiride 4 mg tablet (Amaryl) 4 mg PO BID ##0 11/24/16 05/01/21 losartan 25 mg tablet 25 mg PO QDAY ##0 11/24/16 05/01/21 metformin 1,000 mg tablet,extended 1,000 mg PO BEDTIME ##0 11/24/16 05/01/21 release 24hr (Fortamet) tiotropium bromide 18 mcg capsule 1 puff INH QDAY ##0 11/24/16 05/01/21 with inhalation device (Spiriva with HandiHaler) atorvastatin 80 mg tablet (Lipitor) 80 mg PO QDAY ##0 12/16/16 05/01/21 metformin 500 mg tablet 500 mg PO DAILY 05/01/20 05/01/21 Previous Rx's Medication Instructions Recorded gabapentin 800 mg tablet 800 mg PO TID ##90 12/27/16 meperidine 100 mg tablet (Demerol) 100 mg PO Q4P #60 tabs 12/27/16 progesterone micronized 100 mg 100 mg PO QDAY #60 caps 08/16/19 capsule (Prometrium) estradiol 2 mg (7.5 mcg/24 hour) 1 vaginalrin vaginal [id number] #1 ea 02/15/20 vaginal ring (Estring) insulin glargine 100 unit/mL (3 25 unit (0.25 mL) SUBCUT QPM #15 mL 05/10/20 mL) subcutaneous pen (Lantus Solostar U-100 Insulin) fluconazole 150 mg tablet 150 mg PO ONCE #2 tabs 05/18/20 clindamycin HCl 300 mg capsule 300 mg PO TID #21 caps 06/07/20 oxycodone 5 mg tablet 5 mg PO Q6H PRN pain #10 tabs 06/07/20 doxycycline hyclate 100 mg tablet 100 mg PO BID #20 tabs 07/08/20 hydrocodone 5 mg-acetaminophen 325 1 tab PO Q6H PRN pain #10 tabs 03/25/21 mg tablet sucralfate 100 mg/mL oral 10 ml PO QID #420 mL 03/25/21 suspension (Carafate) ondansetron 4 mg disintegrating 4 mg PO Q8H PRN nausea and 06/25/21 tablet vomiting #10 tabs pantoprazole 40 mg tablet,delayed 40 mg PO DAILY #30 tabs 06/25/21 release (Protonix) sucralfate 1 gram tablet (Carafate) 1 g PO QACHS before meals, for 07/17/21 stomach barrier #45 tabs metoclopramide HCl 10 mg tablet 10 mg PO Q6H PRN nausea and 09/06/21 (Reglan) vomiting #20 tabs pantoprazole 40 mg tablet,delayed 40 mg PO DAILY #30 tabs 09/06/21 release (Protonix) promethazine 25 mg rectal 25 mg IL Q4-6H PRN nausea and 09/06/21 suppository vomiting #12 ea estradiol 1 mg tablet See Rx Instructions .Route 11/03/21 .COMPLEX #90 tabs hydrocodone 5 mg-acetaminophen 325 1 tab PO Q6H PRN pain #10 tabs 11/24/21 mg tablet hydrocodone 5 mg-acetaminophen 325 1 tab PO Q6H PRN pain #10 tabs 11/24/21 mg tablet hydrocodone 5 mg-acetaminophen 325 1 tab PO Q6H PRN pain #10 tabs 11/24/21 mg tablet albuterol sulfate 90 mcg/actuation 2 puff inhalation QID PRN 03/07/22 aerosol inhaler shortness of breath or wheezing #8.5 grams prednisone 20 mg tablet 20 mg PO DAILY #5 tabs 03/07/22 hydrocodone 5 mg-acetaminophen 325 1 tab PO Q4-6H PRN pain #10 tabs 06/27/22 mg tablet ketorolac 10 mg tablet 10 mg PO Q6H PRN pain #14 tabs 06/27/22 ondansetron 4 mg disintegrating 4 mg PO TID-QID PRN nausea and 06/27/22 tablet vomiting #10 tabs tamsulosin 0.4 mg capsule (Flomax) 0.4 mg PO DAILY #30 caps 06/27/22 hydrocodone 5 mg-acetaminophen 325 1 tab PO Q6H PRN pain #10 tabs 07/19/22 mg tablet Allergies Allergy/AdvReac Type Severity Reaction Status Date / Time levofloxacin [LEVOFLOXACIN] Allergy Severe hives Verified 07/19/22 15:31 Sulfa (Sulfonamide Allergy Severe rash Verified 07/19/22 15:31 Antibiotics) [SULFA (SULFONAMIDE ANTIBIOTICS)] amoxicillin [From AUGMENTIN] Allergy Mild rash Verified 07/19/22 15:31 ciprofloxacin [From CIPRO] Allergy Mild rash Verified 07/19/22 15:31 clarithromycin [From BIAXIN] Allergy Mild rash Verified 07/19/22 15:31 clavulanic acid Allergy Mild rash Verified 07/19/22 15:31 [From AUGMENTIN] morphine [MORPHINE] AdvReac Mild n/v Verified 07/19/22 15:31 pregabalin [PREGABALIN] AdvReac Mild lost voice Verified 07/19/22 15:31 Review of Systems Review of Systems ROS Unobtainable: All systems reviewed & are unremarkable except as noted in HPI and below Patient History Medical History Anxiety Arthritis Bipolar disorder Depression Diabetes mellitus Fibroids GERD (gastroesophageal reflux disease) History of gastrointestinal symptoms HIV (human immunodeficiency virus infection) Hypertension PTSD (post-traumatic stress disorder) Surgical History History of cystoscopy (2013) History of stress incontinence procedure using tension free vaginal tape (2013) S/P functional endoscopic sinus surgery (2002) Status post arthroscopy (2003) Status post cholecystectomy (2011) Status post laparoscopic supracervical hysterectomy (2011) Family History Father Congestive heart failure tobacco type: cigarettes alcohol intake frequency: holidays/special occasions only Substance Use Type: marijuana Exam Initial Vital Signs Initial Vital Signs: Vital Signs Temperature 97.3 F L 07/19/22 15:27 Pulse Rate 92 H 07/19/22 15:27 Respiratory Rate 18 07/19/22 15:27 Blood Pressure 132/66 07/19/22 15:27 Pulse Oximetry 98 07/19/22 15:27 Oxygen Delivery Method Room Air 07/19/22 15:27 GENERAL: Alert well-appearing 51-year-old female and in no acute distress. HEENT: Head atraumatic,EOMI, pupils reactive, face symmetric, moist mucous membranes CARDIOVASCULAR: Regular rate and rhythm without murmurs, rubs or gallops. RESPIRATORY: Breath sounds equal bilaterally, no wheezes rales or rhonchi. ABDOMEN: Soft, minimal left lower quadrant pain no guarding no rebound. : Minimal left CVA tenderness EXTREMITIES: Normal range of motion, no clubbing or edema. Neurovascularly intact NEUROLOGICAL: Alert and oriented x4. SKIN: Warm, dry, no laceration, no petechiae, no rashes or lesions. Course Orders Ordered: ED Orders 07/19/22 16:43 XR KUB Stat 07/19/22 17:05 CBC Auto Diff [Complete Blood Count AUTO DIFF] Stat CMP [Comprehensive Metabolic Panel] Stat Ondansetron HCl (Ondansetron 4 Mg Odt) 4 mg SL NOW PRN PRN Reason: Nausea And Vomiting Last Admin: 07/19/22 16:15 Dose: 4 mg Documented By: TONNY Ondansetron HCl (Ondansetron 4 Mg/2 Ml Inj) 4 mg IV NOW PRN PRN Reason: Nausea And Vomiting Discontinued Medications Hydromorphone HCl (Hydromorphone 1 Mg Inj) 1 mg IV NOW ONE Stop: 07/19/22 17:46 Last Admin: 07/19/22 17:56 Dose: 1 mg Documented By: TONNY Sodium Chloride (Normal Saline 0.9%) 1,000 mls @ 1,000 mls/hr IV BOLUS ONE Stop: 07/19/22 17:32 Last Infusion: 07/19/22 18:24 Dose: 0 mls/hr Documented By: Admin: 07/19/22 17:07 Dose: 1,000 mls/hr Documented By: TONNY Ketorolac Tromethamine (Ketorolac 30 Mg/Ml Vial) 15 mg IV NOW ONE Stop: 07/19/22 16:34 Last Admin: 07/19/22 17:07 Dose: 15 mg Documented By: TONNY Ondansetron HCl (Ondansetron 4 Mg/2 Ml Inj) 4 mg IV NOW ONE Stop: 07/19/22 16:34 Last Admin: 07/19/22 17:07 Dose: 4 mg Documented By: TONNY Vital Signs Vital signs: Vital Signs - 8 hr 07/19/22 15:27 07/19/22 15:50 07/19/22 15:51 Temperature 97.3 F L Pulse Rate 92 H 88 86 Respiratory Rate 18 Blood Pressure 132/66 Pulse Oximetry 98 99 99 Oxygen Delivery Method Room Air 07/19/22 15:51 07/19/22 16:00 07/19/22 16:00 Temperature Pulse Rate 86 Respiratory Rate Blood Pressure 125/58 L 114/67 Pulse Oximetry 94 Oxygen Delivery Method 07/19/22 16:30 07/19/22 16:30 07/19/22 18:36 Temperature Pulse Rate 92 H 74 Respiratory Rate 18 Blood Pressure 113/71 117/66 Pulse Oximetry 96 98 Oxygen Delivery Method MDM - Female Genitourinary Lab Data 07/19/22 17:05 07/19/22 17:05 Labs: Lab Results 07/19/22 07/19/22 Range/Units 17:05 17:05 WBC 10.0 (4.5-11.0) X10^3/uL RBC 4.67 (4.0-5.2) X10^6/uL Hgb 14.5 (12.0-16.0) g/dL Hct 42.6 (36-46) % MCV 91.2 (80-100) fL MCH 31.1 (26-34) PG MCHC 34.1 (30-36) % RDW 14.1 (11.6-14.8) % Plt Count 207 (150-400) X10^3/uL Neut % (Auto) 58.5 (50-75) % Lymph % (Auto) 33.3 (25-40) % [place] % (Auto) 5.4 (3-14) % Eos % (Auto) 2.0 (2-4) % Baso % (Auto) 0.8 (0-2) % Neut # (Auto) 5900 (4158-5529) /uL Lymph # (Auto) 3300 (0765-3532) /uL [place] # (Auto) 500 (0-900) /uL Eos # (Auto) 200 (0-450) /uL Baso # (Auto) 100 (0-100) /uL Sodium 134 L (137-145) mmol/L Potassium 4.2 (3.4-5.1) mmol/L Chloride 99 (98-107) mmol/L Carbon Dioxide 27 (22-32) mmol/L BUN 11 (7-17) mg/dL Creatinine 0.76 (0.52-1.04) mg/dL Estimated GFR > 60 (>60) mL/min BUN/Creatinine Ratio 14.5 (6-22) Glucose 115 H (70-100) mg/dL Calcium 8.8 (8.4-10.2) mg/dL Total Bilirubin 0.3 (0.2-1.3) mg/dL AST 19 (14-36) IU/L ALT 19 (<35) IU/L Alkaline Phosphatase 78 (38-126) U/L Total Protein 7.6 (6.3-8.2) g/dL Albumin 4.1 (3.5-5.0) g/dL Globulin 3.5 (1.7-4.1) g/dL Albumin/Globulin Ratio 1.2 (1.0-2.8) Urine Dip Bedside Urine Glucose 1000 mg/dl Bedside Urine Bilirubin - Negative Bedside Urine Ketone - Negative Urine Specific [place] 1.005 Bedside Urine Occult Blood - Negative Bedside Urine pH 6.0 Bedside Urine Protein - Negative Bedside Urine Urobilinogen - Negative Bedside Urine Nitrite - Negative Bedside Urine Leukocytes - Negative Esterase Imaging Data Abdominal x-ray: Radiologist's Impression: PROCEDURE:? XR KUB ? INDICATIONS:? known right stone ? TECHNIQUE:? One view of the abdomen acquired.? ? COMPARISON:? [facility], CT, CT KUB, 07/09/2022, 16:12.? [facility], CT, CT ABDOMEN PELVIS W CON, 06/27/2022, 4:59.? [facility], CR, XR ACUTE ABDOMEN SERIES, 03/24/2021, 19:46. ? FINDINGS:? ? Surgical changes and devices:? Cholecystectomy clips are seen.? Lumbosacral fixation hardware can be seen. ? Bowel:? Bowel gas pattern is normal.? ? Soft tissues:? A nonobstructing left-sided kidney stone is seen that measures 5 mm.? Visualized solid organ contours appear normal in size.? ? Bones:? No suspicious bony lesions.? Age-appropriate bony degenerative changes are seen.? IMPRESSION:? Nonobstructing left-sided kidney stone seen overlying the left kidney the, which correlates well with the recent prior CT study. ? ? Dictated by: Alex Love M.D. on 07/19/2022 at 16:05 ? ? Approved by: Alex Love M.D. on 07/19/2022 at 16:07 ? [facility] Narrative Medical decision making narrative: Patient 51-year-old female with a history of known kidney stones presenting today with left flank pain and left groin pain. Previously she had a right kidney stone 2 mm which she likely passed she is no longer having pain on that side. However she is having pain on the left. CT in January shows that she had 2 left renal stones 0.7 cm and 0.[address] on the does not report any renal stones however KUB today does show a renal stone. She has no BURKE no electrolyte abnormality urinalysis does not show any sign of infection. She is no leukocytosis. She was given Toradol here in the ED however she is still needing something more for pain. She reports that she does still have some [place] at home, but could use a couple more. Discharge Plan Departure Patient Disposition: Home Clinical Impression: Kidney stone on left side Instructions: DI for Kidney Stones Activity Restrictions/Additional Instructions: *You have been diagnosed with kidney stone *What to do: At this time you do not have any sign of kidney injury stay hydrated. You are likely having another left-sided kidney stone. You will need to follow-up with urology *Continue to take medications as directed--> sent to [facility] [place] 1 tablet every 6 hours if needed for severe pain--> if you need any more pain medication you will need to talk to your PCP or urologist *Follow up with your primary care provider in 2-3 days or call [phone] Horner tomorrow to schedule follow-up appointment *Return to ER if you should have increasing pain persistent vomiting fever [or] any new, worsening or concerning symptoms CONTROLLED SUBSTANCE DISCHARGE (Narcotoic/benzodiazepine/Flexeril/Phenergan) 1. You have been prescribed narcotic medications, it does have acetaminophen/Tylenol/paracetamol in it, DO NOT TAKE MORE THAN 4,00mg in 24 hours of Tylenol. TRAMADOL DOES NOT CONTAIN TYLENOL 2. Please understand that we cannot provide further refills of narcotics, benzodiazepines or controlled substances through the ED and her pain management will need to be through your provider. 3. While on these medications you cannot drive or operate heavy machinery. 4. You cannot sign legal documents or perform any duties such as this. 5. As long as you're taking opiate pain medications he should also be taking a stool softener such as Colace, Dulcolax, MiraLAX or prune juice, to help avoid constipation. Prescriptions: New hydrocodone-acetaminophen 5-325 mg tablet 1 tab PO Q6H PRN (Reason: pain) Qty: 10 0RF No Action fluconazole 150 mg tablet 150 mg PO ONCE Qty: 2 0RF Rx Instructions: Repeat in 72 hours if still symptomatic propranolol 80 MG capsule,extended release 24 hr 80 mg PO QDAY Qty: 0 prazosin [Minipress] 1 MG capsule 1 mg PO BID Qty: 0 bupropion HCl 75 MG tablet 75 mg PO BID Qty: 0 albuterol sulfate [Ventolin HFA] 90 MCG/PUFF HFA aerosol inhaler 2 puff INH BIDP PRNQty: 0 clonazepam 1 MG tablet 1 mg PO TID Qty: 0 fluticasone propionate [Flonase Allergy Relief] 9.9 ML spray,suspension 1 spray Intranasal BID Qty: 0 [id number] [Triumeq] 1 EACH tablet 1 tab PO QDAY Qty: 0 dexlansoprazole [Dexilant] 60 MG capsule,biphase delayed releas 60 mg PO QDAY Qty: 0 amitriptyline 50 MG tablet 50 mg PO HS Qty: 0 cetirizine 10 MG tablet 10 mg PO QDAY Qty: 0 glimepiride [Amaryl] 4 MG tablet 4 mg PO BID Qty: 0 losartan 25 MG tablet 25 mg PO QDAY Qty: 0 metformin [Fortamet] 1,000 MG tablet extended release 24hr 1,000 mg PO BEDTIME Qty: 0 tiotropium bromide [Spiriva with HandiHaler] 18 MCG capsule, w/inhalation device 1 puff INH QDAY Qty: 0 atorvastatin [Lipitor] 80 MG tablet 80 mg PO QDAY Qty: 0 gabapentin 800 MG tablet 800 mg PO TID Qty: 90 1RF meperidine [Demerol] 100 MG tablet 100 mg PO Q4P Qty: 60 0RF progesterone micronized [Prometrium] 100 mg capsule 100 mg PO QDAY Qty: 60 0RF Rx Instructions: Please schedule appointment for refills. Estring 2 mg (7.5 mcg /24 hour) ring 1 vaginalrin VAG [id number] Qty: 1 4RF estradiol 1 mg tablet See Rx Instructions .ROUTE .COMPLEX Qty: 90 3RF Dose Instruction: TAKE 1 TABLET BY MOUTH EVERY DAY Rx Instructions: TAKE 1 TABLET BY MOUTH EVERY DAY oxycodone 5 mg tablet 5 mg PO Q6H PRN (Reason: pain) Qty: 10 0RF clindamycin HCl 300 mg capsule 300 mg PO TID Qty: 21 0RF sucralfate [Carafate] 100 mg/mL suspension 10 ml PO QID Qty: 420 0RF Rx Instructions: swish in mouth and swallow; use after food/drink hydrocodone-acetaminophen 5-325 mg tablet 1 tab PO Q6H PRN (Reason: pain) Qty: 10 0RF promethazine 25 mg suppository 25 mg IL Q4-6H PRN (Reason: nausea and vomiting) Qty: 12 0RF pantoprazole [Protonix] 40 mg tablet,delayed release (DR/EC) 40 mg PO DAILY Qty: 30 0RF metoclopramide HCl [Reglan] 10 mg tablet 10 mg PO Q6H PRN (Reason: nausea and vomiting) Qty: 20 0RF hydrocodone-acetaminophen 5-325 mg tablet 1 tab PO Q6H PRN (Reason: pain) Qty: 10 0RF hydrocodone-acetaminophen 5-325 mg tablet 1 tab PO Q6H PRN (Reason: pain) Qty: 10 0RF hydrocodone-acetaminophen 5-325 mg tablet 1 tab PO Q6H PRN (Reason: pain) Qty: 10 0RF hydrocodone-acetaminophen 5-325 mg tablet 1 tab PO Q4-6H PRN (Reason: pain) Qty: 10 0RF ketorolac 10 mg tablet 10 mg PO Q6H PRN (Reason: pain) Qty: 14 0RF tamsulosin [Flomax] 0.4 mg capsule 0.4 mg PO DAILY Qty: 30 0RF ondansetron 4 mg tablet,disintegrating 4 mg PO TID-QID PRN (Reason: nausea and vomiting) Qty: 10 0RF metformin 500 mg Tablet 500 mg PO DAILY Rx Instructions: take in the morning Lantus Solostar U-100 Insulin 100 unit/mL (3 mL) insulin pen 25 unit SUBCUT QPM Qty: 15 0RF doxycycline hyclate 100 mg tablet 100 mg PO BID Qty: 20 0RF pantoprazole [Protonix] 40 mg tablet,delayed release (DR/EC) 40 mg PO DAILY Qty: 30 0RF ondansetron 4 mg tablet,disintegrating 4 mg PO Q8H PRN (Reason: nausea and vomiting) Qty: 10 0RF sucralfate [Carafate] 1 gram tablet 1 g PO QACHS Qty: 45 0RF albuterol sulfate 90 mcg/actuation HFA aerosol inhaler 2 puff inhalation QID PRN (Reason: shortness of breath or wheezing) Qty: 8.5 0RF prednisone 20 mg tablet 20 mg PO DAILY Qty: 5 0RF Referrals: Reji Horner MD [Physician] - Stand Alone Forms: Patient Portal/API
--- NOTE | 2022-07-19 16:43 | DI.RAD.S_ITS ---
PROCEDURE: XR KUB INDICATIONS: known right stone TECHNIQUE: One view of the abdomen acquired. COMPARISON: [facility], CT, CT KUB, 07/09/2022, 16:12. [facility], CT, CT ABDOMEN PELVIS W CON, 06/27/2022, 4:59. [facility], CR, XR ACUTE ABDOMEN SERIES, 03/24/2021, 19:46. FINDINGS: Surgical changes and devices: Cholecystectomy clips are seen. Lumbosacral fixation hardware can be seen. Bowel: Bowel gas pattern is normal. Soft tissues: A nonobstructing left-sided kidney stone is seen that measures 5 mm. Visualized solid organ contours appear normal in size. Bones: No suspicious bony lesions. Age-appropriate bony degenerative changes are seen. IMPRESSION: Nonobstructing left-sided kidney stone seen overlying the left kidney the, which correlates well with the recent prior CT study. Dictated by: Alex Love M.D. on 07/19/2022 at 16:05 Approved by: Alex Love M.D. on 07/19/2022 at 16:07
[2022-07-19] MEDS: SODIUM CHLORIDE 0.9% 1,000 ML 1000 ML IV (17:07)
[2022-07-19] MEDS: KETOROLAC 30 MG/ML VIAL 15 MG IV (17:07)
[2022-07-19] MEDS: ONDANSETRON 4 MG/2 ML INJ IV (17:07)
[2022-07-19 17:16] LABS: Add Manual Diff / Slide Review NO; Basophils Absolute Auto 100 /uL (0-100); Basophils Percent Auto 0.8 % (0-2); Eosinophils Absolute Auto 200 /uL (0-450); Hematocrit 42.6 % (36-46); Hemoglobin 14.5 g/dL (12.0-16.0); Lymphocytes Absolute Auto 3300 /uL (1100-4500); Lymphocytes Percent Auto 33.3 % (25-40); Mean Corpuscular HGB Conc 34.1 % (30-36); Mean Corpuscular Hemoglobin 31.1 PG (26-34); Mean Corpuscular Volume 91.2 fL (80-100); Monocytes Absolute Auto 500 /uL (0-900); Monocytes Percent Auto 5.4 % (3-14); Neutrophils Absolute Auto 5900 /uL (1500-7000); Neutrophils Percent Auto 58.5 % (50-75); Platelet Count 207 X10^3/uL (150-400); Red Blood Cell Count 4.67 X10^6/uL (4.0-5.2); Red Cell Distribution Width 14.1 % (11.6-14.8)
[2022-07-19 17:33] LABS: Alanine Aminotransferase 19 IU/L (<35); Albumin 4.1 g/dL (3.5-5.0); Albumin Globulin Ratio 1.2 (1.0-2.8); Alkaline Phosphatase 78 U/L (38-126); Aspartate Aminotransferase 19 IU/L (14-36); BUN Creatinine Ratio 14.5 (6-22); Bilirubin Total 0.3 mg/dL (0.2-1.3); Blood Urea Nitrogen 11 mg/dL (7-17); Calcium 8.8 mg/dL (8.4-10.2); Carbon Dioxide 27 mmol/L (22-32); Chloride 99 mmol/L (98-107); Estimated Glomerular Filt Rate > 60 mL/min (>60); Globulin 3.5 g/dL (1.7-4.1); Glucose 115 mg/dL (70-100); HEMOLYSIS < 15 (0-50); Potassium 4.2 mmol/L (3.4-5.1); Sodium 134 mmol/L (137-145); Total Protein 7.6 g/dL (6.3-8.2)
[2022-07-19] MEDS: HYDROMORPHONE 1 MG INJ IV (17:56)
[2022-07-19 18:36] VITALS: BP 117/66; PULSE 74; RESP 18; O2SAT 98
== END 2022-07-19 18:40 | disposition home or self-care (01) ==
PROVIDERS: Emergency Provider Emergency Medicine
DX: N20.0 Calculus of kidney (principal); B20 Human immunodeficiency virus [HIV] disease; Z87.442 Personal history of urinary calculi
CPT/HCPCS: 36415; 74018; 80053; 81003; 85025; 96361; 96374; 96375; 99284; J1170; J1885; J2405

== ENCOUNTER 2022-08-04 08:08 | Day surgery (SDC) | payer MEDICARE, OTHER, SELFPAY ==
[2022-08-04] VITALS (7 sets, daily range): BP systolic 122–164; BP diastolic 66–80; PULSE 59–78; RESP 11–21; TEMP 36.1–36.6; O2SAT 97–100; BMI 25.1
--- NOTE | 2022-08-04 08:30 | PM.PREOP ---
Pre-operative Note COVID-19 COVID-19 status: Not tested Criteria for continued procedure: Non-surgical alternatives not available or appropriate per current SOC Interval Note History & Physical reviewed/Exam performed by Physician: Yes Changes to H&P: No
[2022-08-04] MEDS: CEFAZOLIN 2 GM/100 ML PREMIX 100 ML IV (09:00)
--- NOTE | 2022-08-04 09:17 | SUR.OPER ---
Lithotomy on ESWL table. Arms wrapped in gelpad and tucked at side. Legs secured in ESWL stirrups.
--- NOTE | 2022-08-04 09:46 | PM.OP.1 ---
Procedure & Clinicians Procedure: Left extracorporeal shockwave lithotripsy with cystoscopy and left ureteral stent placement. Same procedure as scheduled: Yes Indications: This 51-year-old female was found to have 2 left-sided renal calculi fall in the throes of passing a small 2 mm right ureteral calculus which is now passed. She presents this time for treatment of her left-sided stones. Surgeon: Reji Horner Click Yes if Unassisted: Yes Anesthesia Type: General Operative Notes Findings: Findings: At cystoscopy urethral meatus was normal urethra is normal along its length and the bladder mucosa appeared normal the bladder itself was normal the ureteral orifices were normal position with clear efflux. The stones were noted to be in the mid kidney there appeared to be an 8 and a 5 mm stone. The smaller stone which was lower received 400 shocks at level 7 and fragmented completely by appearance the larger stone which was just slightly cephalad received 1600 shocks at level 7 for a total of 2000 shocks. Both stones appeared to fragment completely or at least very very well. A 7 [place] by multilink stent was left in the left collecting system with no string. Closure Type: not applicable Specimen(s): none sent Prosthetic devices, grafts, tissues, transplants, or devices: Seven [place] by multi length ureteral stent left collecting system no string Estimated Blood Loss (mL): 0 Blood products transfused: none Procedure in detail: Procedure in detail: After informed consent was obtained, the patient was identified and brought to the operating room where she was placed on the Lithotripter the supine position. Once on the Lithotripter anesthesia was induced and maintained. Ensuring an adequate level of anesthesia the patient was transitioned to the lithotomy position. Once in lithotomy position she was prepped, draped, prepared for Transurethral procedure. After prepping, draping, ensuring an adequate level of anesthesia and time-out 22 [place] cystoscope was passed through the urethra and into the bladder where cystoscopy was performed the left ureteral orifice was once again identified and a guidewire passed up and under the collecting system under fluoroscopic visualization. The stent was then passed in a coaxial fashion over the wire positioned in the renal pelvis under fluoroscopic visualization and in the bladder under direct vision. The nylon harness was removed with the aid of a grasping forceps. With the stent in good position the bladder was drained the scope was removed and the patient went on to lithotripsy. The stone upper 8 mm stone was positioned at F1 via the imaging system and shockwave was delivered at level 7 for total of 1600 shocks there was periodic reimaging and re localization to ensure maximal energy delivered to the stone. The lower stone 5 mm was then positioned in F1 and shockwave delivered at level 7 for a total 400 shocks. Periodic reimaging and re localization was performed to ensure maximal energy delivery to the stone. At 2000 shocks the shockwave head was rotated out and fluoroscopy performed. It appeared that the stones were well fragmented and just a cloud of dust. At this point the patient was awakened having tolerated procedure well she was transferred to the postanesthesia care unit for recovery there were no complications. Complications: none Post-operative Condition: stable Disposition: PACU Plan for aftercare: Patient to be discharged to home, straining her urine saving any fragments to follow up my office in approximately 10-14 days. Patient will have a KUB at that time and bring stone fragments in.
[2022-08-04] MEDS: ONDANSETRON 4 MG/2 ML INJ IV ×2 (09:58→10:22)
[2022-08-04] MEDS: HYDROMORPHONE 2 MG INJ IV ×2 (09:58→10:09)
[2022-08-04] MEDS: PHENAZOPYRIDINE 100 MG TABLET 200 MG PO (10:09)
[2022-08-04] MEDS: ACETAMINOPHEN 325 MG TABLET PO (10:10)
[2022-08-04] MEDS: OXYCODONE IR 5 MG TABLET PO ×2 (10:10→10:22)
[2022-08-04] MEDS: OXYBUTYNIN 5 MG TABLET PO (10:10)
== END 2022-08-04 10:50 | disposition home or self-care (01) ==
PROVIDERS: PCP Family Medicine; Referring Provider Urology; Visit Provider Urology
PROC: (CPT 50590; principal; 2022-08-04 09:15)
PROC: (CPT 50590; 2022-08-04 09:15)
DX: N20.0 Calculus of kidney (principal); N95.2 Postmenopausal atrophic vaginitis; B20 Human immunodeficiency virus [HIV] disease; F15.11 Other stimulant abuse, in remission; J44.9 Chronic obstructive pulmonary disease, unspecified; F17.210 Nicotine dependence, cigarettes, uncomplicated; R10.9 Unspecified abdominal pain; R10.10 Upper abdominal pain, unspecified; R11.2 Nausea with vomiting, unspecified; G89.18 Other acute postprocedural pain
CPT/HCPCS: 50590; 52332; 36415; 74177; 80048; 80053; 85025; 96365; 96375; 99284; C9113; J0690; J1100; J1170; J1885; J2060; J2250; J2405; J2704; J3010; Q9967

== ENCOUNTER 2022-08-04 15:35 | Emergency (ER) | payer MEDICARE, OTHER, SELFPAY ==
[2022-08-04] VITALS (27 sets, daily range): BP systolic 152–184; BP diastolic 80–94; PULSE 56–63; RESP 14–24; TEMP 36.6; O2SAT 97–100
[2022-08-04 16:02] LABS: Add Manual Diff / Slide Review NO; Basophils Absolute Auto 100 /uL (0-100); Basophils Percent Auto 0.6 % (0-2); Eosinophils Absolute Auto 200 /uL (0-450); Eosinophils Percent Auto 1.1 % (2-4); Hematocrit 48.1 % (36-46); Hemoglobin 15.8 g/dL (12.0-16.0); Lymphocytes Absolute Auto 3000 /uL (1100-4500); Lymphocytes Percent Auto 18.1 % (25-40); Mean Corpuscular HGB Conc 32.9 % (30-36); Mean Corpuscular Hemoglobin 30.4 PG (26-34); Mean Corpuscular Volume 92.5 fL (80-100); Monocytes Absolute Auto 700 /uL (0-900); Monocytes Percent Auto 4.5 % (3-14); Neutrophils Absolute Auto 12500 /uL (1500-7000); Neutrophils Percent Auto 75.7 % (50-75); Platelet Count 246 X10^3/uL (150-400); Red Blood Cell Count 5.19 X10^6/uL (4.0-5.2); Red Cell Distribution Width 14.2 % (11.6-14.8); White Blood Cell Count 16.5 X10^3/uL (4.5-11.0)
--- NOTE | 2022-08-04 16:04 | DI.CT.S_ITS ---
PROCEDURE: CT ABDOMEN PELVIS W CON INDICATIONS: severe pain, recent procedure TECHNIQUE: After the administration of intravenous contrast, axial sections acquired from the lung bases to the pubic symphysis. Coronal and sagittal reformats were performed. For radiation dose reduction, the following was used: automated exposure control, adjustment of mA and/or kV according to patient size. COMPARISON: [facility], CT, CT ABDOMEN PELVIS W CON, 06/27/2022, 4:59. FINDINGS: Image quality: Excellent. Lung bases: Unremarkable. Heart: No significant findings. ABDOMEN: Liver: Unremarkable. Gallbladder: Surgically absent Biliary ducts: Unremarkable. Pancreas: Unremarkable. Spleen: Unremarkable. Adrenal Glands: Unremarkable. Kidneys and Ureters: No right renal stone or ureteral stone. No right hydronephrosis. No right renal mass. The left kidney has nonobstructing stones. There is no hydronephrosis. There is a left ureteral stent, with its pigtail in the renal pelvis and in the bladder.. Stomach and Bowel: Stomach, small bowel loops, and colon are unremarkable. Peritoneum: No abnormal intraperitoneal fluid. No free air. Ventral Wall: No hernias. Abdominal Nodes: No retroperitoneal or mesenteric adenopathy by size criteria. Vessels: Aorta and inferior vena cava are normal in size. PELVIS: Pelvic Organs: Unremarkable. Bladder: Unremarkable. Pelvic Nodes: No enlarged lymph nodes. Miscellaneous: No hernias are seen. Bones: Remote L5-S1 fusion surgery. No lytic or blastic bony lesions. No compression fractures. IMPRESSION: 1. There are left renal stones. There is a left renal stent in place. There is no hydronephrosis. 2. There is no evidence of acute abdominal process. 3. Interval passage of the distal right ureteral stone. No right hydronephrosis. Dictated by: Alistair Ennis M.D. on 08/04/2022 at 16:57 Approved by: Alistair Ennis M.D. on 08/04/2022 at 17:02
[2022-08-04] MEDS: SODIUM CHLORIDE 0.9% 1,000 ML 1000 ML IV (16:13)
[2022-08-04] MEDS: HYDROMORPHONE 1 MG INJ IV (16:13)
[2022-08-04 16:31] LABS: Alanine Aminotransferase 21 IU/L (<35); Albumin 4.7 g/dL (3.5-5.0); Albumin Globulin Ratio 1.1 (1.0-2.8); Alkaline Phosphatase 84 U/L (38-126); Aspartate Aminotransferase 33 IU/L (14-36); Bilirubin Total 0.7 mg/dL (0.2-1.3); Blood Urea Nitrogen 16 mg/dL (7-17); Calcium 9.3 mg/dL (8.4-10.2); Carbon Dioxide 27 mmol/L (22-32); Chloride 101 mmol/L (98-107); Estimated Glomerular Filt Rate > 60 mL/min (>60); Globulin 4.2 g/dL (1.7-4.1); Glucose 137 mg/dL (70-100); Potassium 4.7 mmol/L (3.4-5.1); Sodium 139 mmol/L (137-145); Total Protein 8.9 g/dL (6.3-8.2)
[2022-08-04 16:32] LABS: HEMOLYSIS 72 (0-50)
[2022-08-04] MEDS: ONDANSETRON 4 MG/2 ML INJ IV (16:52)
[2022-08-04] MEDS: LIDOCAINE 2% (PF) 6 ML in SODIUM CHLORIDE 0.9% 50 ML 336 ML IV (17:06)
--- NOTE | 2022-08-04 17:20 | ED_ITS ---
HPI - Abdominal Pain General Chief Complaint: Abdominal Pain Stated Complaint: Abd pain radiating to chest Time Seen by Provider: 08/04/22 15:35 Source: patient and EMS Mode of arrival: EMS History of Present Illness HPI narrative: 51-year-old female daily smoker with history of kidney stones and hypertension presents to the emergency department by EMS for evaluation of severe abdominal pain. She had a urologic procedure earlier today at our facility including lithotripsy and stenting and states she was discharged without pain meds and is now having severe pain. She has nausea but denies any vomiting. She denies any fever or chills. She states her pain is worse when she moves and improves with rest. She denies change in her bowel and has had no urinary complaints. Related Data Home Medications Medication Instructions Recorded Confirmed atomoxetine PO 07/29/22 07/29/22 atorvastatin PO 07/29/22 07/29/22 cetirizine [All Day Allergy 10 mg PO DAILY 07/29/22 08/04/22 (cetirizine)] clonazepam 1 mg PO BID 07/29/22 08/04/22 dexlansoprazole [Dexilant] PO 07/29/22 07/29/22 duloxetine PO 07/29/22 07/29/22 empagliflozin [Jardiance] PO 07/29/22 07/29/22 estradiol PO 07/29/22 07/29/22 gabapentin 800 mg PO BID 07/29/22 08/04/22 metformin 1,000 mg PO DAILY 07/29/22 08/04/22 multivitamin [One Daily 1 tab PO 07/29/22 07/29/22 Multivitamin] prazosin 1 mg PO BID 07/29/22 07/29/22 propranolol 80 mg PO BEDTIME 07/29/22 08/04/22 spironolactone PO 07/29/22 07/29/22 trazodone 75 mg PO BEDTIME 07/29/22 08/04/22 Previous Rx's Medication Instructions Recorded ondansetron 4 mg disintegrating 4 mg PO TID-QID PRN nausea and 08/04/22 tablet vomiting #10 tabs oxybutynin chloride 5 mg tablet 5 mg PO BID-TID PRN bladder spasms 08/04/22 #30 tabs oxycodone 5 mg tablet 5 mg PO Q6H PRN pain #14 tabs 08/04/22 phenazopyridine 200 mg tablet 200 mg PO TID PRN Bladder 08/04/22 (Pyridium) irritation #30 tabs Allergies Allergy/AdvReac Type Severity Reaction Status Date / Time levofloxacin [LEVOFLOXACIN] Allergy Severe hives Verified 08/04/22 08:23 Sulfa (Sulfonamide Allergy Severe rash Verified 08/04/22 08:23 Antibiotics) [SULFA (SULFONAMIDE ANTIBIOTICS)] amoxicillin [From AUGMENTIN] Allergy Mild rash Verified 08/04/22 08:23 ciprofloxacin [From CIPRO] Allergy Mild rash Verified 08/04/22 08:23 clarithromycin [From BIAXIN] Allergy Mild rash Verified 08/04/22 08:23 clavulanic acid Allergy Mild rash Verified 08/04/22 08:23 [From AUGMENTIN] morphine [MORPHINE] AdvReac Mild n/v Verified 08/04/22 08:23 pregabalin [PREGABALIN] AdvReac Mild lost voice Verified 08/04/22 08:23 Review of Systems Review of Systems Narrative: GENERAL: Denies chills, fatigue, malaise, fever, sweats. HEENT: Denies sinus pain, ear pain, sore throat, difficulty swallowing, dizziness. RESPIRATORY: Denies dyspnea, cough, wheezing, hemoptysis, sputum. CARDIOVASCULAR: Denies chest pain, palpitations, orthopnea, edema, GASTROINTESTINAL: See HPI : Denies dysuria, frequency, incontinence, hematuria, urinary retention. MUSCULOSKELETAL: denies weakness, joint pain, or bony pain SKIN: Denies rash, skin lesions, or other NEUROLOGIC: Denies weakness, headache, numbness, change in speech, confusion, seizures, incoordination. PSYCHIATRIC: No concerning psychosocial issues. 12 point review of systems is negative except for those stated above Patient History Medical History Anxiety Arthritis Bipolar disorder Depression Diabetes mellitus Fibroids GERD (gastroesophageal reflux disease) History of gastrointestinal symptoms History of liver disease HIV (human immunodeficiency virus infection) Hx of migraine headaches Hx of osteoarthritis Hypertension Kidney stone on left side PTSD (post-traumatic stress disorder) Surgical History History of cystoscopy (2013) History of stress incontinence procedure using tension free vaginal tape (2013) S/P functional endoscopic sinus surgery (2002) Status post arthroscopy (2003) Status post cholecystectomy (2011) Status post laparoscopic supracervical hysterectomy (2011) Family History Father Diabetes mellitus Hypertension CVA (cerebral vascular accident) Mother Diabetes mellitus Hypertension CVA (cerebral vascular accident) Hearing impairment Brother Hypertension Social History marital status: number of children: 3 household members: spouse occupational status: disabled Smoking Status: Current every day smoker alcohol intake: never caffeine: Yes Type(s) of exercise: none Smoking Status: Current every day smoker tobacco type: cigarettes alcohol intake frequency: holidays/special occasions only Substance Use Type: marijuana Exam Narrative Exam Narrative: GENERAL: [51] year old patient appears stated age. Well-developed patient, in mild distress. HEAD: Atraumatic. Normocephalic. EYES: Pupils equal round and reactive. Extraocular motions intact. No scleral icterus. No injection or drainage. ENT: Nose without bleeding, purulent drainage. Throat without erythema, tonsillar hypertrophy or exudate. Airway patent. NECK: Trachea midline. Non tender CARDIOVASCULAR: Regular rate and rhythm without murmurs, gallops, or rubs. RESPIRATORY: Clear to auscultation. Breath sounds equal bilaterally. No wheezes, rales, or rhonchi. GASTROINTESTINAL: Abdomen soft, generally tender, bowel sounds present, nondistended. EXTREMITIES: No edema or joint tenderness. BACK: Nontender without deformity or crepitance. No flank tenderness. NEURO: AOx3. SKIN: No rash or erythema of visible areas Initial Vital Signs Initial Vital Signs: Vital Signs Pulse Rate 63 08/04/22 15:38 Pulse Oximetry 100 08/04/22 15:38 Course Orders Ordered: ED Orders 08/04/22 15:45 Complete Blood Count AUTO DIFF Stat Comprehensive Metabolic Panel Stat 08/04/22 16:04 CT abdomen pelvis w con Stat Discontinued Medications Hydromorphone HCl (Hydromorphone 1 Mg Inj) 1 mg IV NOW ONE Stop: 08/04/22 15:36 Last Admin: 08/04/22 16:13 Dose: 1 mg Documented By: RB Sodium Chloride (Normal Saline 0.9%) 1,000 mls @ 1,000 mls/hr IV BOLUS ONE Stop: 08/04/22 16:34 Last Infusion: 08/04/22 16:31 Dose: 1,000 mls/hr Documented By: Infusion: 08/04/22 16:18 Dose: 0 mls/hr Documented By: Admin: 08/04/22 16:13 Dose: 1,000 mls/hr Documented By: RB Lidocaine HCl 6 ml/ Sodium (Chloride) 56 mls @ 336 mls/hr IV NOW ONE Stop: 08/04/22 17:00 Last Admin: 08/04/22 17:06 Dose: 336 mls/hr Documented By: RB Ondansetron HCl (Ondansetron 4 Mg/2 Ml Inj) 4 mg IV NOW ONE Stop: 08/04/22 16:50 Last Admin: 08/04/22 16:52 Dose: 4 mg Documented By: RB Reevaluation(s) Reevaluation #1: Patient feeling much better with above-stated therapies Consultations Consultation #1: Discussed with on-call Urology, Dr. Horner, he states the procedure was very simple and went quite well, does recommend labs and imaging. Vital Signs Vital signs: Vital Signs - 8 hr 08/04/22 15:53 08/04/22 15:38 08/04/22 15:40 Temperature 97.8 F Pulse Rate 61 63 61 Respiratory Rate 20 Blood Pressure 171/82 H Pulse Oximetry 97 100 100 Oxygen Delivery Method Room Air 08/04/22 15:43 08/04/22 15:43 08/04/22 15:45 Temperature Pulse Rate 61 62 Respiratory Rate 18 Blood Pressure 171/82 H Pulse Oximetry 99 98 Oxygen Delivery Method 08/04/22 15:50 08/04/22 15:55 08/04/22 16:00 Temperature Pulse Rate 63 60 Respiratory Rate 19 17 Blood Pressure 161/80 H Pulse Oximetry 98 98 Oxygen Delivery Method 08/04/22 16:00 08/04/22 16:05 08/04/22 16:10 Temperature Pulse Rate 60 58 L 57 L Respiratory Rate 24 23 Blood Pressure Pulse Oximetry 99 99 100 Oxygen Delivery Method 08/04/22 16:15 08/04/22 16:15 08/04/22 16:26 Temperature Pulse Rate 56 L 62 Respiratory Rate Blood Pressure 152/80 H Pulse Oximetry 99 100 Oxygen Delivery Method 08/04/22 16:30 08/04/22 16:35 08/04/22 16:40 Temperature Pulse Rate 63 62 61 Respiratory Rate 22 19 14 Blood Pressure Pulse Oximetry 98 98 99 Oxygen Delivery Method 08/04/22 16:44 08/04/22 16:44 08/04/22 16:45 Temperature Pulse Rate 62 Respiratory Rate 18 Blood Pressure 172/81 H 169/85 H Pulse Oximetry 99 Oxygen Delivery Method 08/04/22 16:45 08/04/22 16:50 08/04/22 16:50 Temperature Pulse Rate 58 L 58 L Respiratory Rate 20 22 Blood Pressure 163/83 H Pulse Oximetry 99 99 Oxygen Delivery Method MDM - Abdominal Pain Lab Data 08/04/22 15:45 08/04/22 15:45 Labs: Lab Results 08/04/22 08/04/22 Range/Units 15:45 15:45 WBC 16.5 H (4.5-11.0) X10^3/uL RBC 5.19 (4.0-5.2) X10^6/uL Hgb 15.8 (12.0-16.0) g/dL Hct 48.1 H (36-46) % MCV 92.5 (80-100) fL MCH 30.4 (26-34) PG MCHC 32.9 (30-36) % RDW 14.2 (11.6-14.8) % Plt Count 246 (150-400) X10^3/uL Neut % (Auto) 75.7 H (50-75) % Lymph % (Auto) 18.1 L (25-40) % [place] % (Auto) 4.5 (3-14) % Eos % (Auto) 1.1 L (2-4) % Baso % (Auto) 0.6 (0-2) % Neut # (Auto) 82442 H (3562-2776) /uL Lymph # (Auto) 3000 (8714-5139) /uL [place] # (Auto) 700 (0-900) /uL Eos # (Auto) 200 (0-450) /uL Baso # (Auto) 100 (0-100) /uL Sodium 139 (137-145) mmol/L Potassium 4.7 (3.4-5.1) mmol/L Chloride 101 (98-107) mmol/L Carbon Dioxide 27 (22-32) mmol/L BUN 16 (7-17) mg/dL Creatinine 0.84 (0.52-1.04) mg/dL Estimated GFR > 60 (>60) mL/min BUN/Creatinine Ratio 19.0 (6-22) Glucose 137 H (70-100) mg/dL Calcium 9.3 (8.4-10.2) mg/dL Total Bilirubin 0.7 (0.2-1.3) mg/dL AST 33 (14-36) IU/L ALT 21 (<35) IU/L Alkaline Phosphatase 84 (38-126) U/L Total Protein 8.9 H (6.3-8.2) g/dL Albumin 4.7 (3.5-5.0) g/dL Globulin 4.2 H (1.7-4.1) g/dL Albumin/Globulin Ratio 1.1 (1.0-2.8) MDM Narrative Medical decision making narrative: CC: 51-year-old female with abdominal pain after recent urologic procedure Complicating co-morbidities: Age, recent surgery Data collected from: Patient Medical records reviewed: Prior notes reviewed in our EMR Differential considered, but not limited to: Surgical complication, perforation, hemorrhage, bowel obstruction versus Exam documented above, pertinent findings include: Abdominal pain, soft, bowel sounds present, heart rate regular and lungs clear Lab Test results independently reviewed as above. Pertinent findings: No significant abnormal findings required specific intervention Independently reviewed EKG as above Imaging studies independently reviewed: Left renal stones with left renal stent in place, no hydronephrosis, no evidence of acute abdominal process Consultations: Discussed with on-call Urology, see above for details Treatments: Fluids, pain control and antiemetics Re-evaluations: Significant improvement Discussion: Patient presents with abdominal pain after urologic procedure, history, physical and labs are reassuring, response to therapies reassuring. No evidence of acute intra-abdominal pathology. Encouraged to follow-up closely, prescription sent to her pharmacy of choice Disposition: see below, along with detailed discharge instructions that have been reviewed with patient as well as indications for ED re-evaluation and additional outpatient follow up Discharge Plan Departure Patient Disposition: Home Clinical Impression: Abdominal pain in female Instructions: DI for Abdominal Pain-Adult Activity Restrictions/Additional Instructions: *You have been diagnosed with [abdominal pain] * As we discussed your history and physical exam as well as labs and imaging are very reassuring. There is no evidence of any severe diagnoses that would require a specific or immediate intervention. *What to do: *Please continue to take your regular medications as directed. [x ] New medication prescriptions sent to your pharmacy: [[facility] ] *Please follow up with your primary care provider in 2-3 days, call for an appointment. Let them know you were seen in the Emergency Department and that we ask that you be seen in follow up. We will electronically transmit a record of today's note if your PCP is in our system *Please consider a clear liquid diet for the next 24-48 hours and then slowly advance to regular as tolerated. Also, try to avoid alcohol, nicotine, caffeine, spicy, acidic or fatty foods as this may worsen your symptoms *If you do not have a primary care provider please contact the [facility] Resource line at [phone]. They will ask some questions about your medical history and help get you set up with a doctor in the community. *Return to Emergency Department if you should have any new, worsening or concerning symptoms, such as [fever greater than 101 F, shaking chills, worsening pain, persistent vomiting or other bothersome symptoms You have been prescribed a short course of narcotic medications. These are potentially dangerous and addictive medications that should be used carefully. While on these medications you cannot drive or operate heavy machinery. A dditionally, you cannot sign legal documents or perform any duties such as this. Many people get constipated on narcotic medications so it would be advisable to discuss stool softeners with the pharmacist when you brain picker your prescription. Please understand that we cannot provide further refills of narcotics or controlled substances through the ED and your pain management will need to be through your Primary Care Provider] Prescriptions: New ondansetron 4 mg tablet,disintegrating 4 mg PO TID-QID PRN (Reason: nausea and vomiting) Qty: 10 0RF oxycodone 5 mg tablet 5 mg PO Q6H PRN (Reason: pain) Qty: 14 0RF No Action phenazopyridine [Pyridium] 200 mg tablet 200 mg PO TID PRN (Reason: Bladder irritation) Qty: 30 0RF oxybutynin chloride 5 mg tablet 5 mg PO BID-TID PRN (Reason: bladder spasms) Qty: 30 0RF atorvastatin PO atomoxetine PO cetirizine [All Day Allergy (cetirizine)] 10 mg PO DAILY estradiol PO empagliflozin [Jardiance] PO dexlansoprazole [Dexilant] PO clonazepam 1 mg PO BID prazosin 1 mg PO BID duloxetine PO gabapentin 800 mg PO BID trazodone 75 mg PO BEDTIME propranolol 80 mg PO BEDTIME spironolactone PO metformin 1,000 mg PO DAILY multivitamin [One Daily Multivitamin] 1 tab PO Referrals: Nidhi Faustin DO [Primary Care Provider] - Stand Alone Forms: Patient Portal/API
--- NOTE | 2022-08-04 17:24 | PC.NURSE ---
Upon arrival patient had 3 separate IV attempts with gauze and tape over them on her right hand, wrist and AC. These were all attempted by the EMT prior arrival.
== END 2022-08-04 17:50 | disposition home or self-care (01) ==
PROVIDERS: Emergency Provider Emergency Medicine; PCP Family Medicine
DX: R10.9 Unspecified abdominal pain (principal)
CPT/HCPCS: 74177; 80053; 85025; 96365; 96375; 99284; J1170; J2405; Q9967

== ENCOUNTER 2022-08-04 20:23 | Emergency (ER) | payer MEDICARE, OTHER, SELFPAY ==
[2022-08-04] VITALS (9 sets, daily range): BP systolic 112–157; BP diastolic 65–87; PULSE 58–99; RESP 18; TEMP 37.1; O2SAT 93–100; BMI 26.6
--- NOTE | 2022-08-04 21:05 | ED_ITS ---
HPI - General Adult General Chief complaint: Abdominal Pain Stated complaint: upper abd pain Time Seen by Provider: 08/04/22 20:48 Source: patient and family Mode of arrival: Ambulatory Limitations: no limitations History of Present Illness HPI narrative: Patient is a 51-year-old female. Earlier today she underwent an elective lithotripsy with ureteral stent placement. Was done at this facility. Subsequently discharged home. Return to this emergency department afterwards because of pain and nausea. Had labs and imaging studies. Was eventually discharged home. She returns because she states she is continuing to have pain and vomiting. She did take the Zofran at home without any improvement. She states she did not take the pain medication because of the vomiting. She denies any fevers. Related Data Home Medications Medication Instructions Recorded Confirmed atomoxetine PO 07/29/22 07/29/22 atorvastatin PO 07/29/22 07/29/22 cetirizine [All Day Allergy 10 mg PO DAILY 07/29/22 08/04/22 (cetirizine)] clonazepam 1 mg PO BID 07/29/22 08/04/22 dexlansoprazole [Dexilant] PO 07/29/22 07/29/22 duloxetine PO 07/29/22 07/29/22 empagliflozin [Jardiance] PO 07/29/22 07/29/22 estradiol PO 07/29/22 07/29/22 gabapentin 800 mg PO BID 07/29/22 08/04/22 metformin 1,000 mg PO DAILY 07/29/22 08/04/22 multivitamin [One Daily 1 tab PO 07/29/22 07/29/22 Multivitamin] prazosin 1 mg PO BID 07/29/22 07/29/22 propranolol 80 mg PO BEDTIME 07/29/22 08/04/22 spironolactone PO 07/29/22 07/29/22 trazodone 75 mg PO BEDTIME 07/29/22 08/04/22 Previous Rx's Medication Instructions Recorded ondansetron 4 mg disintegrating 4 mg PO TID-QID PRN nausea and 08/04/22 tablet vomiting #10 tabs oxybutynin chloride 5 mg tablet 5 mg PO BID-TID PRN bladder spasms 08/04/22 #30 tabs oxycodone 5 mg tablet 5 mg PO Q6H PRN pain #14 tabs 08/04/22 phenazopyridine 200 mg tablet 200 mg PO TID PRN Bladder 08/04/22 (Pyridium) irritation #30 tabs sucralfate 100 mg/mL oral 10 ml PO QACHS PRN abdominal pain 08/04/22 suspension (Carafate) #414 mL Allergies Allergy/AdvReac Type Severity Reaction Status Date / Time levofloxacin [LEVOFLOXACIN] Allergy Severe hives Verified 08/04/22 08:23 Sulfa (Sulfonamide Allergy Severe rash Verified 08/04/22 08:23 Antibiotics) [SULFA (SULFONAMIDE ANTIBIOTICS)] amoxicillin [From AUGMENTIN] Allergy Mild rash Verified 08/04/22 08:23 ciprofloxacin [From CIPRO] Allergy Mild rash Verified 08/04/22 08:23 clarithromycin [From BIAXIN] Allergy Mild rash Verified 08/04/22 08:23 clavulanic acid Allergy Mild rash Verified 08/04/22 08:23 [From AUGMENTIN] morphine [MORPHINE] AdvReac Mild n/v Verified 08/04/22 08:23 pregabalin [PREGABALIN] AdvReac Mild lost voice Verified 08/04/22 08:23 Review of Systems Constitutional Constitutional: Reports system reviewed and no additional complaints, except as documented Gastrointestinal Gastrointestinal: Reports system reviewed and no additional complaints, except as documented Genitourinary Genitourinary: Reports system reviewed and no additional complaints, except as documented Integumentary/Breasts Skin/Breast: Reports system reviewed and no additional complaints, except as documented Patient History Medical History Anxiety Arthritis Bipolar disorder Depression Diabetes mellitus Fibroids GERD (gastroesophageal reflux disease) History of gastrointestinal symptoms History of liver disease HIV (human immunodeficiency virus infection) Hx of migraine headaches Hx of osteoarthritis Hypertension Kidney stone on left side PTSD (post-traumatic stress disorder) Surgical History History of cystoscopy (2013) History of stress incontinence procedure using tension free vaginal tape (2013) S/P functional endoscopic sinus surgery (2002) Status post arthroscopy (2003) Status post cholecystectomy (2011) Status post laparoscopic supracervical hysterectomy (2011) Family History Father Diabetes mellitus Hypertension CVA (cerebral vascular accident) Mother Diabetes mellitus Hypertension CVA (cerebral vascular accident) Hearing impairment Brother Hypertension Social History marital status: number of children: 3 household members: spouse occupational status: disabled Smoking Status: Current every day smoker alcohol intake: never caffeine: Yes Type(s) of exercise: none Smoking Status: Current every day smoker tobacco type: cigarettes alcohol intake frequency: holidays/special occasions only Substance Use Type: marijuana Exam Initial Vital Signs Initial Vital Signs: Vital Signs Temperature 98.8 F 08/04/22 20:35 Pulse Rate 60 08/04/22 20:35 Respiratory Rate 18 08/04/22 20:35 Blood Pressure 155/66 H 08/04/22 20:35 Pulse Oximetry 97 08/04/22 20:35 Oxygen Delivery Method Room Air 08/04/22 20:35 HENMT Head: normal to inspection and normocephalic Resp Effort & Inspection: normal respiratory effort Cardio Rate: regular rate GI Inspection: non-distended Skin General: no rashes or lesions noted Neuro General: patient alert and patient awake Extrem General: capillary refill normal Course Orders Ordered: ED Orders 08/04/22 21:46 Basic Metabolic Panel Stat Complete Blood Count AUTO DIFF Stat Discontinued Medications Al Hydrox/Mg Hydrox/Simethicone 20 ml/ Lidocaine HCl 15 ml 0 ml PO NOW ONE Stop: 08/04/22 22:13 Last Admin: 08/04/22 22:17 Dose: 35 ml Documented By: RB Hydromorphone HCl (Hydromorphone 1 Mg Inj) 1 mg IV NOW ONE Stop: 08/04/22 21:07 Last Admin: 08/04/22 21:17 Dose: 1 mg Documented By: RB Sodium Chloride (Normal Saline 0.9%) 1,000 mls @ 125 mls/hr IV CONT MILY Last Admin: 08/04/22 21:16 Dose: 125 mls/hr Documented By: RB Lorazepam (Lorazepam 2 Mg/Ml Inj) 1 mg IV NOW ONE Stop: 08/04/22 22:01 Last Admin: 08/04/22 22:07 Dose: 1 mg Documented By: RB Ondansetron HCl (Ondansetron 4 Mg/2 Ml Inj) 4 mg IV NOW ONE Stop: 08/04/22 21:07 Last Admin: 08/04/22 21:16 Dose: 4 mg Documented By: ROSIE Oxycodone/Acetaminophen (Oxycodone/Acetaminophen 5/325 Tablet) 1 tab PO NOW ONE Stop: 08/04/22 23:01 Last Admin: 08/04/22 23:08 Dose: 1 tab Documented By: ROSIE Pantoprazole Sodium (Pantoprazole 40 Mg Vial) 40 mg IV NOW ONE Stop: 08/04/22 21:34 Last Admin: 08/04/22 21:37 Dose: 40 mg Documented By: ROSIE Vital Signs Vital signs: Vital Signs - 8 hr 08/04/22 20:35 08/04/22 20:42 08/04/22 21:12 Temperature 98.8 F Pulse Rate 60 61 58 L Respiratory Rate 18 Blood Pressure 155/66 H 155/66 H Pulse Oximetry 97 100 Oxygen Delivery Method Room Air 08/04/22 21:26 08/04/22 21:26 08/04/22 21:30 Temperature Pulse Rate 61 Respiratory Rate Blood Pressure 147/82 H 149/87 H Pulse Oximetry 100 Oxygen Delivery Method 08/04/22 21:30 08/04/22 22:00 08/04/22 22:00 Temperature Pulse Rate 64 61 Respiratory Rate Blood Pressure 157/82 H Pulse Oximetry 99 98 Oxygen Delivery Method 08/04/22 22:30 08/04/22 22:30 08/04/22 23:00 Temperature Pulse Rate 60 Respiratory Rate Blood Pressure 136/65 112/73 Pulse Oximetry 94 Oxygen Delivery Method 08/04/22 23:00 08/04/22 23:30 08/04/22 23:30 Temperature Pulse Rate 99 H 98 H Respiratory Rate Blood Pressure 130/79 Pulse Oximetry 96 93 Oxygen Delivery Method 08/05/22 00:00 08/05/22 00:00 Temperature Pulse Rate 95 H Respiratory Rate Blood Pressure 99/63 Pulse Oximetry 96 Oxygen Delivery Method Medical Decision Making Medical Records Medical records reviewed: Yes I reviewed the patient's medical records. Lab Data Lab results reviewed: Yes I reviewed the patient's lab results. 08/04/22 21:46 08/04/22 21:46 Labs: Lab Results 08/04/22 08/04/22 Range/Units 21:46 21:46 WBC 12.8 H (4.5-11.0) X10^3/uL RBC 4.94 (4.0-5.2) X10^6/uL Hgb 14.9 (12.0-16.0) g/dL Hct 45.3 (36-46) % MCV 91.6 (80-100) fL MCH 30.2 (26-34) PG MCHC 33.0 (30-36) % RDW 13.8 (11.6-14.8) % Plt Count 211 (150-400) X10^3/uL Neut % (Auto) 83.8 H (50-75) % Lymph % (Auto) 13.2 L (25-40) % [place] % (Auto) 2.4 L (3-14) % Eos % (Auto) 0.2 L (2-4) % Baso % (Auto) 0.4 (0-2) % Neut # (Auto) 23274 H (8788-4885) /uL Lymph # (Auto) 1700 (8340-1891) /uL [place] # (Auto) 300 (0-900) /uL Eos # (Auto) 0 (0-450) /uL Baso # (Auto) 100 (0-100) /uL Sodium 137 (137-145) mmol/L Potassium 4.6 (3.4-5.1) mmol/L Chloride 104 (98-107) mmol/L Carbon Dioxide 22 (22-32) mmol/L BUN 14 (7-17) mg/dL Creatinine 0.74 (0.52-1.04) mg/dL Estimated GFR > 60 (>60) mL/min BUN/Creatinine Ratio 18.9 (6-22) Glucose 136 H (70-100) mg/dL Calcium 8.7 (8.4-10.2) mg/dL [facility] Narrative Medical decision making narrative: Patient states that after the Protonix and the GI cocktail that her symptoms have improved. She was able to tolerate oral intake specifically an oral pain medication. Her nausea was better. Her labs are unremarkable. I do suspect that a lot of her discomfort is coming because of all of the vomiting in the GI upset and irritation from this. She has pain medication at home that she did not take prior to coming in because of the vomiting. Her symptoms are now well controlled. I advised that she take the pain medication the nausea medication at home to try to stay in front of the discomfort. She was also instructed to continue to follow all of the postoperative instructions given to her by the urologist. I will discharge home with a prescription for Carafate as this may help her symptoms as well. They were given return precautions. They expressed understanding and agreement. Discharge Plan Departure Patient Disposition: Home Clinical Impression: Post-operative pain, Abdominal pain, Nausea and vomiting Instructions: Nausea and Vomiting-Adult Activity Restrictions/Additional Instructions: I do recommend she follow all of the postoperative instructions given to you by Dr. Horner. Take the medications as directed. Return to the emergency department for new symptoms. Prescriptions: New sucralfate [Carafate] 100 mg/mL suspension 10 ml PO QACHS PRN (Reason: abdominal pain) Qty: 414 0RF No Action phenazopyridine [Pyridium] 200 mg tablet 200 mg PO TID PRN (Reason: Bladder irritation) Qty: 30 0RF oxybutynin chloride 5 mg tablet 5 mg PO BID-TID PRN (Reason: bladder spasms) Qty: 30 0RF ondansetron 4 mg tablet,disintegrating 4 mg PO TID-QID PRN (Reason: nausea and vomiting) Qty: 10 0RF oxycodone 5 mg tablet 5 mg PO Q6H PRN (Reason: pain) Qty: 14 0RF atorvastatin PO atomoxetine PO cetirizine [All Day Allergy (cetirizine)] 10 mg PO DAILY estradiol PO empagliflozin [Jardiance] PO dexlansoprazole [Dexilant] PO clonazepam 1 mg PO BID prazosin 1 mg PO BID duloxetine PO gabapentin 800 mg PO BID trazodone 75 mg PO BEDTIME propranolol 80 mg PO BEDTIME spironolactone PO metformin 1,000 mg PO DAILY multivitamin [One Daily Multivitamin] 1 tab PO Referrals: Nidhi Faustin DO [Primary Care Provider] - Stand Alone Forms: Patient Portal/API
[2022-08-04] MEDS: SODIUM CHLORIDE 0.9% 1,000 ML 125 ML IV (21:16)
[2022-08-04] MEDS: ONDANSETRON 4 MG/2 ML INJ IV (21:16)
[2022-08-04] MEDS: HYDROMORPHONE 1 MG INJ IV (21:17)
[2022-08-04] MEDS: PANTOPRAZOLE 40 MG VIAL IV (21:37)
[2022-08-04 22:00] LABS: Add Manual Diff / Slide Review NO; Basophils Absolute Auto 100 /uL (0-100); Basophils Percent Auto 0.4 % (0-2); Eosinophils Absolute Auto 0 /uL (0-450); Eosinophils Percent Auto 0.2 % (2-4); Hematocrit 45.3 % (36-46); Hemoglobin 14.9 g/dL (12.0-16.0); Lymphocytes Absolute Auto 1700 /uL (1100-4500); Lymphocytes Percent Auto 13.2 % (25-40); Mean Corpuscular Hemoglobin 30.2 PG (26-34); Mean Corpuscular Volume 91.6 fL (80-100); Monocytes Absolute Auto 300 /uL (0-900); Monocytes Percent Auto 2.4 % (3-14); Neutrophils Absolute Auto 10700 /uL (1500-7000); Neutrophils Percent Auto 83.8 % (50-75); Platelet Count 211 X10^3/uL (150-400); Red Blood Cell Count 4.94 X10^6/uL (4.0-5.2); Red Cell Distribution Width 13.8 % (11.6-14.8); White Blood Cell Count 12.8 X10^3/uL (4.5-11.0)
[2022-08-04] MEDS: LORazepam 2 MG/ML INJ 1 MG IV (22:07)
[2022-08-04 22:12] LABS: BUN Creatinine Ratio 18.9 (6-22); Blood Urea Nitrogen 14 mg/dL (7-17); Calcium 8.7 mg/dL (8.4-10.2); Carbon Dioxide 22 mmol/L (22-32); Chloride 104 mmol/L (98-107); Estimated Glomerular Filt Rate > 60 mL/min (>60); Glucose 136 mg/dL (70-100); HEMOLYSIS < 15 (0-50); Potassium 4.6 mmol/L (3.4-5.1); Sodium 137 mmol/L (137-145)
[2022-08-04] MEDS: MAG HYDROX/ALUMINUM/SIMETH SUS 20 ML, LIDOCAINE VISCOUS 2% 15 ML PO (22:17)
[2022-08-04] MEDS: OXYCODONE/ACETAMINOPHEN 5/325 TABLET 1 TAB PO (23:08)
[2022-08-05] VITALS: BP 99/63; PULSE 95; O2SAT 96
== END 2022-08-05 00:41 | disposition home or self-care (01) ==
PROVIDERS: Emergency Provider Emergency Medicine; PCP Family Medicine
DX: R10.10 Upper abdominal pain, unspecified (principal); R11.2 Nausea with vomiting, unspecified; G89.18 Other acute postprocedural pain
CPT/HCPCS: 36415; 80048; 85025; 96374; 96375; 99284; C9113; J1170; J2060; J2405

== ENCOUNTER 2022-08-06 20:08 | Emergency (ER) | payer MEDICARE, OTHER, SELFPAY ==
[2022-08-06 20:14] VITALS: PULSE 75; O2SAT 99
[2022-08-06 20:15] VITALS: BP 134/64; PULSE 78; RESP 18; TEMP 36.1; O2SAT 99; BMI 25.1
[2022-08-06 20:30] VITALS: PULSE 78; O2SAT 97
[2022-08-06 21:35] LABS: Bacteria Urine Moderate (10-30); Culture Indicated Urine Specimen Cultured; RBC Urine 10-30/HPF (0-5/HPF); Squamous Epithelial Cell Urine 1-5 /HPF (0-5/HPF); WBC Urine 5-10/HPF (0-5/HPF)
--- NOTE | 2022-08-06 22:25 | DI.CT.S_ITS ---
PROCEDURE: CT ABDOMEN PELVIS W CON INDICATIONS: left abd pain, recent stent + constipation TECHNIQUE: After the administration of IV contrast, axial sections were acquired from the lung bases to the pubic symphysis. Coronal and sagittal reformats were performed. For radiation dose reduction, the following was used: automated exposure control, adjustment of mA and/or kV according to patient size. COMPARISON: [facility], CT, CT KUB, 07/09/2022, 16:12. [facility], CT, CT ABDOMEN PELVIS W CON, 08/04/2022, 16:21. FINDINGS: Image quality: Excellent. Lung bases: Unremarkable. Heart: No significant findings. ABDOMEN: Liver: Small benign hepatic cysts. Gallbladder: Absent. Biliary ducts: Unremarkable. Pancreas: No peripancreatic fluid collection. Spleen: No splenomegaly. Adrenal Glands: No nodule. Kidneys and Ureters: No hydronephrosis. Left ureteral stent is in satisfactory position. Small nonobstructing left kidney stones are unchanged. Stomach and Bowel: Stomach, small bowel loops, and colon are unremarkable. Prominent stool in the colon. The appendix is not dilated. Small duodenal diverticulum. Peritoneum: No abnormal intraperitoneal fluid. No free air. Ventral Wall: No hernia. Abdominal Nodes: No retroperitoneal or mesenteric adenopathy by size criteria. Vessels: Aorta and inferior vena cava are normal in size. Mild calcified plaque. PELVIS: Pelvic Organs: Uterus is absent. Bladder: No stones seen. Pelvic Nodes: No enlarged lymph nodes. Miscellaneous: No inguinal hernias are seen. Bones: No suspicious lesion. L5-S1 pedicle screw fixation. IMPRESSION: 1. Left ureteral stent is unchanged. No hydronephrosis. 2. Small nonobstructing left kidney stones are unchanged. 3. Prominent stool in the colon. No small bowel obstruction. No free fluid. Dictated by: Harris Aguayo M.D. on 08/06/2022 at 23:03 Approved by: Harris Aguayo M.D. on 08/06/2022 at 23:09
--- NOTE | 2022-08-06 22:26 | ED_ITS ---
HPI - Abdominal Pain General Chief Complaint: Abdominal Pain Stated Complaint: abdominal pain, constipation Time Seen by Provider: 08/06/22 22:11 Source: patient and family Mode of arrival: Ambulatory History of Present Illness HPI narrative: This is a 51-year-old female with history of diabetes, gastroparesis, HIV, anxiety depression and kidney stones. Patient states she is been constipated for about 9 days she is had a small amount of stool very small nuggets most recently on July 02 she states she is not had much flatus. She is had increasing bloating and fullness and pain more on the left side. She is had a little bit of flank pain on the left side as well. She vomited once yesterday and has had nausea but no additional vomiting. She denies dysuria, urgency or frequency, no hematuria. No vaginal bleeding or discharge. She is occasionally had issues with constipation but not constantly. She was seen here 2 days ago she is been taking Dulcolax, milk of magnesia and then started MiraLax every hour since 3:00 p.m. without any success and having a bowel movement. She does note she had stent and lithotripsy for a left side kidney stone on Wednesday with Dr. Horner. She would already been constipated for a couple days before this. She has been taking oxycodone since then. She is been drinking lot of fluids. She is not tried any glycerin suppositories or enemas. States she does not feel any fullness or stool right at the rectal opening. She states other surgeries include a prior hysterectomy, cholecystectomy, shoulder surgery, sinus, back surgery, knee replacement and several toenails removed. She does use tobacco, no alcohol, uses THC but no other illicit. She follows with Dr. Faustin at [facility]. Related Data Home Medications Medication Instructions Recorded Confirmed atomoxetine PO 07/29/22 07/29/22 atorvastatin PO 07/29/22 07/29/22 cetirizine [All Day Allergy 10 mg PO DAILY 07/29/22 08/04/22 (cetirizine)] clonazepam 1 mg PO BID 07/29/22 08/04/22 dexlansoprazole [Dexilant] PO 07/29/22 07/29/22 duloxetine PO 07/29/22 07/29/22 empagliflozin [Jardiance] PO 07/29/22 07/29/22 estradiol PO 07/29/22 07/29/22 gabapentin 800 mg PO BID 07/29/22 08/04/22 metformin 1,000 mg PO DAILY 07/29/22 08/04/22 multivitamin [One Daily 1 tab PO 07/29/22 07/29/22 Multivitamin] prazosin 1 mg PO BID 07/29/22 07/29/22 propranolol 80 mg PO BEDTIME 07/29/22 08/04/22 spironolactone PO 07/29/22 07/29/22 trazodone 75 mg PO BEDTIME 07/29/22 08/04/22 Previous Rx's Medication Instructions Recorded ondansetron 4 mg disintegrating 4 mg PO TID-QID PRN nausea and 08/04/22 tablet vomiting #10 tabs oxybutynin chloride 5 mg tablet 5 mg PO BID-TID PRN bladder spasms 08/04/22 #30 tabs oxycodone 5 mg tablet 5 mg PO Q6H PRN pain #14 tabs 08/04/22 phenazopyridine 200 mg tablet 200 mg PO TID PRN Bladder 08/04/22 (Pyridium) irritation #30 tabs sucralfate 100 mg/mL oral 10 ml PO QACHS PRN abdominal pain 08/04/22 suspension (Carafate) #414 mL lactulose 10 gram/15 mL oral 15 ml PO DAILY PRN constipation 08/06/22 solution (Constulose) #100 mL meloxicam 7.5 mg tablet 7.5 mg PO BID PRN pain #14 tabs 08/06/22 Allergies Allergy/AdvReac Type Severity Reaction Status Date / Time levofloxacin [LEVOFLOXACIN] Allergy Severe hives Verified 08/06/22 20:15 Sulfa (Sulfonamide Allergy Severe rash Verified 08/06/22 20:15 Antibiotics) [SULFA (SULFONAMIDE ANTIBIOTICS)] amoxicillin [From AUGMENTIN] Allergy Mild rash Verified 08/06/22 20:15 ciprofloxacin [From CIPRO] Allergy Mild rash Verified 08/06/22 20:15 clarithromycin [From BIAXIN] Allergy Mild rash Verified 08/06/22 20:15 clavulanic acid Allergy Mild rash Verified 08/06/22 20:15 [From AUGMENTIN] morphine [MORPHINE] AdvReac Mild n/v Verified 08/06/22 20:15 pregabalin [PREGABALIN] AdvReac Mild lost voice Verified 08/06/22 20:15 Review of Systems Review of Systems ROS Unobtainable: All systems reviewed & are unremarkable except as noted in HPI and below Patient History Medical History Anxiety Arthritis Bipolar disorder Depression Diabetes mellitus Fibroids GERD (gastroesophageal reflux disease) History of gastrointestinal symptoms History of liver disease HIV (human immunodeficiency virus infection) Hx of migraine headaches Hx of osteoarthritis Hypertension Kidney stone on left side PTSD (post-traumatic stress disorder) Surgical History History of cystoscopy (2013) History of stress incontinence procedure using tension free vaginal tape (2013) S/P functional endoscopic sinus surgery (2002) Status post arthroscopy (2003) Status post cholecystectomy (2011) Status post laparoscopic supracervical hysterectomy (2011) Family History Father Diabetes mellitus Hypertension CVA (cerebral vascular accident) Mother Diabetes mellitus Hypertension CVA (cerebral vascular accident) Hearing impairment Brother Hypertension Social History marital status: number of children: 3 household members: spouse occupational status: disabled Smoking Status: Current every day smoker alcohol intake: never caffeine: Yes Type(s) of exercise: none Smoking Status: Current every day smoker tobacco type: cigarettes alcohol intake frequency: holidays/special occasions only Substance Use Type: marijuana Exam Narrative Exam Narrative: GENERAL: Alert and oriented x three, female in mild distress. HEENT: Head normocephalic, atraumatic, EOMI, pupils reactive, face symmetric, moist mucous membranes NECK: Supple, full range of motion CARDIOVASCULAR: Regular rate and rhythm without murmurs, rubs or gallops. RESPIRATORY: Breath sounds equal bilaterally, no wheezes rales or rhonchi. ABDOMEN: Soft, mild generalized tenderness greatest on the left side. Slightly distended. Hypoactive bowel sounds all 4 quadrants. No guarding or rebound, rigidity, no mass : No CVA tenderness EXTREMITIES: Normal range of motion, no clubbing or edema. Neurovascularly intact NEUROLOGICAL: Cranial nerves II through XII grossly intact. Moving all extremities SKIN: Warm, dry, no petechiae, no rashes or lesions. Initial Vital Signs Initial Vital Signs: Vital Signs Pulse Rate 75 08/06/22 20:14 Pulse Oximetry 99 08/06/22 20:14 Course Orders Ordered: ED Orders 08/06/22 20:18 EKG-12 Lead Stat 08/06/22 21:02 Urine Culture Stat Urine Microscopic Stat 08/06/22 22:25 CT abdomen pelvis w con Stat 08/06/22 22:35 Complete Blood Count AUTO DIFF Stat Comprehensive Metabolic Panel Stat Lipase Stat Discontinued Medications Sodium Chloride (Normal Saline 0.9%) 1,000 mls @ 1,000 mls/hr IV BOLUS ONE Stop: 08/06/22 23:21 Last Admin: 08/06/22 22:55 Dose: 1,000 mls/hr Documented By: GC Ketorolac Tromethamine (Ketorolac 30 Mg/Ml Vial) 15 mg IV NOW ONE Stop: 08/06/22 22:32 Last Admin: 08/06/22 22:56 Dose: 15 mg Documented By: GC Lactulose (Lactulose 20 Gm/30 Ml Solution) 20 gm PO NOW ONE Stop: 08/06/22 23:47 Last Admin: 08/07/22 00:07 Dose: 20 gm Documented By: GC Methylnaltrexone [place] (Methylnaltrexone 12 Mg/0.6 Ml Vial) 12 mg SUBCUT NOW ONE Stop: 08/06/22 22:23 Ondansetron HCl (Ondansetron 4 Mg Odt) 4 mg PO NOW PRN PRN Reason: Nausea And Vomiting Ondansetron HCl (Ondansetron 4 Mg/2 Ml Inj) 4 mg IV NOW PRN PRN Reason: Nausea And Vomiting Vital Signs Vital signs: Vital Signs - 8 hr 08/06/22 20:15 08/06/22 20:14 08/06/22 20:30 Temperature 97 F L Pulse Rate 78 75 78 Respiratory Rate 18 Blood Pressure 134/64 Pulse Oximetry 99 99 97 Oxygen Delivery Method Room Air 08/06/22 23:04 08/06/22 23:30 Temperature Pulse Rate 65 73 Respiratory Rate Blood Pressure 144/62 H Pulse Oximetry 99 99 Oxygen Delivery Method MDM - Abdominal Pain Lab Data 08/06/22 22:35 08/06/22 22:35 Labs: Lab Results 08/06/22 08/06/22 08/06/22 Range/Units 21:02 22:35 22:35 WBC 12.2 H (4.5-11.0) X10^3/uL RBC 4.56 (4.0-5.2) X10^6/uL Hgb 13.9 (12.0-16.0) g/dL Hct 41.4 (36-46) % MCV 90.8 (80-100) fL MCH 30.4 (26-34) PG MCHC 33.4 (30-36) % RDW 13.7 (11.6-14.8) % Plt Count 203 (150-400) X10^3/uL Neut % (Auto) 57.9 (50-75) % Lymph % (Auto) 34.7 (25-40) % [place] % (Auto) 5.6 (3-14) % Eos % (Auto) 1.2 L (2-4) % Baso % (Auto) 0.6 (0-2) % Neut # (Auto) 7100 H (3226-8428) /uL Lymph # (Auto) 4200 (7358-8723) /uL [place] # (Auto) 700 (0-900) /uL Eos # (Auto) 100 (0-450) /uL Baso # (Auto) 100 (0-100) /uL Sodium 137 (137-145) mmol/L Potassium 4.6 (3.4-5.1) mmol/L Chloride 102 (98-107) mmol/L Carbon Dioxide 30 (22-32) mmol/L BUN 8 (7-17) mg/dL Creatinine 0.71 (0.52-1.04) mg/dL Estimated GFR > 60 (>60) mL/min BUN/Creatinine Ratio 11.3 (6-22) Glucose 95 (70-100) mg/dL Calcium 8.9 (8.4-10.2) mg/dL Total Bilirubin 0.5 (0.2-1.3) mg/dL AST 19 (14-36) IU/L ALT 16 (<35) IU/L Alkaline Phosphatase 72 (38-126) U/L Total Protein 7.1 (6.3-8.2) g/dL Albumin 3.8 (3.5-5.0) g/dL Globulin 3.3 (1.7-4.1) g/dL Albumin/Globulin Ratio 1.2 (1.0-2.8) Lipase 86 (23-300) U/L Urine RBC 10-30/hpf H (0-5/HPF) Urine WBC 5-10/hpf H (0-5/HPF) Ur Squamous Epith Cells 1-5 /hpf (0-5/HPF) Urine Bacteria Moderate (10-30) H (None) Urine Yeast 1-5/hpf H (None) Ur Culture Indicated? Specimen cultured Point of care testing: Urine Dip Bedside Urine Glucose 1000 mg/dl Bedside Urine Bilirubin - Negative Bedside Urine Ketone - Negative Urine Specific [place] 1.000 Bedside Urine Occult Blood +++ Bedside Urine pH 6.0 Bedside Urine Protein + 30 Bedside Urine Urobilinogen - Negative Bedside Urine Nitrite - Negative Bedside Urine Leukocytes + [address] scan - abdomen/pelvis: Radiologist's Impression: Close Abdomen/Pelvis CT (Signed) [facility] - 08/06/22 Launch?[place] [address] CT Scan Report Signed Patient: Shelbie Purdy MR#: [id number] : 1970 Acct:[id number] Age/Sex: 51 / F Date of Service: 08/06/22 Loc: ED Accession Number: [id number] ?? Procedure: CT abdomen pelvis w con Ordering Provider: Stephenie Basilio D.O. PROCEDURE:? CT ABDOMEN PELVIS W CON ? INDICATIONS:? left abd pain, recent stent + constipation ? TECHNIQUE:? After the administration of IV contrast, axial sections were acquired from the lung bases to the pubic symphysis.? Coronal and sagittal reformats were performed.? For ra diation dose reduction, the following was used:? automated exposure control, adjustment of mA and/or kV according to patient size. ? COMPARISON:? [facility], CT, CT KUB, 07/09/2022, 16:12.? [facility], CT, CT ABDOMEN PELVIS W CON, 08/04/2022, 16:21. ? FINDINGS:? Image quality:? Excellent.? ? Lung bases:? Unremarkable.? ? Heart:? No significant findings. ? ? ABDOMEN: Liver:? Small benign hepatic cysts.? ? Gallbladder:? Absent.? ? Biliary ducts:? Unremarkable.? ? Pancreas:? No peripancreatic fluid collection. Spleen:? No splenomegaly. Adrenal Glands:? No nodule. Kidneys and Ureters:? No hydronephrosis.? Left ureteral stent is in satisfactory position.? Small nonobstructing left kidney stones are unchanged. ? Stomach and Bowel:? Stomach, small bowel loops, and colon are unremarkable.? Prominent stool in the colon.? The appendix is not dilated.? Small duodenal diverticulum. Peritoneum:? No abnormal intraperitoneal fluid.? No free air.? ? Ventral Wall: ? No hernia.? Abdominal Nodes:? No retroperitoneal or mesenteric adenopathy by size criteria.? Vessels:? Aorta and inferior vena cava are normal in size.? Mild calcified plaque. ? PELVIS: Pelvic Organs:? Uterus is absent.? ? Bladder:? No stones seen. Pelvic Nodes: No enlarged lymph nodes.? Miscellaneous: No inguinal hernias are seen. ? ? ? Bones:? No suspicious lesion.? L5-S1 pedicle screw fixation. ? ? IMPRESSION:? 1. Left ureteral stent is unchanged.? No hydronephrosis. ? 2. Small nonobstructing left kidney stones are unchanged. ? 3. Prominent stool in the colon.? No small bowel obstruction.? No free fluid. ? ? Dictated by: Harris Aguayo M.D. on 08/06/2022 at 23:03 ? ? Approved by: Harris Aguayo M.D. on 08/06/2022 at 23:09?? ECG Data Attestation: I personally reviewed and interpreted this ECG as follows: Prior ECG tracings: available for review Interpretation: Normal sinus rate of 75 [place] 136 QRS 82 QTC of 404. Patient has prior from 06/27/2022 which appears similar. No dynamic or acute changes. MDM Narrative Medical decision making narrative: This is a 51-year-old female with constipation for about 9 days she is had some very small amounts of stool several days ago but not consistently she notes some decreased flatulence. Patient does not feel like there stool at the rectal opening she is had some nausea and 1 episode of vomiting and abdominal fullness pain but more on the left side. Patient did of note have a ureteral stent and lithotripsy done several days ago on Wednesday. She is been taking oral stool softeners including Dulcolax, milk of magnesia and MiraLax without improvement but is also on oxycodone for pain control. She does have some flank pain she is not sure her abdominal flank pain are more from constipation versus possibly related to her kidney. She has not had fevers, no chills, no other infectious symptoms. She has not had any urinary changes she has noted some small stones passing but states they seem to be asymptomatic. Patient does have reported history of some gastroparesis, was recently restarted on a medication Jardiance which is similar to 1 that caused significant slowing of her gut motility in the past was not pick. Patient states she has been drinking fluids repeat labs, CT imaging although she did have imaging 2 days ago because of left-sided pain and recent lithotripsy. Patient's urine shows possible infection, labs show mild leukocytosis but actually improved from the 11th. CMP is normal with normal renal function, electrolytes and LFTs. Urine shows 10-30 RBCs, 5-10 wbc's moderate bacteria 1-5 yeast sent for culture. CT shows stool throughout, renal stents in place with no hydronephrosis, small nonobstructing left kidney stones are unchanged prominent stool but no small bowel obstruction or free fluid. Discussed today's findings with the patient I reviewed the images as well she does not have a large ball rate of the rectal vault for disimpaction. Discussed more top-down medications will give a dose of lactulose here and plan to discha rge home as well as a prescription for additional, high-fiber foods fluids. Patient has also been taking oxycodone with a reported history of some gastroparesis is also going to slow her gut. She had some improvement with Toradol so discussed trying meloxicam and Tylenol instead of narcotics for pain management and walking gently and regularly to see if this helps with stimulating her bowel. We did discuss return precautions. All questions answered. Discharge Plan Departure Patient Disposition: Home Clinical Impression: Constipation, S/P ureteral stent placement Instructions: DI for Constipation Activity Restrictions/Additional Instructions: Please follow-up for recheck. With your history of gastroparesis and being on opiate pain medication this combination can cause significant constipation. You can use Meloxicam 1 tablet every 12 hours as needed and tylenol up to 1000mg every 6 hours as needed for pain management instead of oxycodone. Continue with fluids regularly. Make sure eating high-fiber foods or foods such as watermelon, fruits such as cherries, prunes or similar high-fiber foods Continue with Dulcolax twice daily, MiraLax twice daily and you have been given a prescription for lactulose. Take lactulose 15-30mL once daily. You can try glycerin suppositories or enemas at home if you feel like there is stool close to the rectal opening. Prescription sent to [facility] in [place] for lactulose (for constipation) and meloxicam (pain medication). Please return for fevers, worsening abdominal pain, persistent vomiting, if you are not having any stool output or flatus over the next 48 hours, lightheadedness or passing out, or other new or concerning changes. Prescriptions: New lactulose [Constulose] 10 gram/15 mL solution 15 ml PO DAILY PRN (Reason: constipation) Qty: 100 0RF Rx Instructions: You may take 15-30mL daily prn constipation. meloxicam 7.5 mg tablet 7.5 mg PO BID PRN (Reason: pain) Qty: 14 0RF No Action phenazopyridine [Pyridium] 200 mg tablet 200 mg PO TID PRN (Reason: Bladder irritation) Qty: 30 0RF oxybutynin chloride 5 mg tablet 5 mg PO BID-TID PRN (Reason: bladder spasms) Qty: 30 0RF sucralfate [Carafate] 100 mg/mL suspension 10 ml PO QACHS PRN (Reason: abdominal pain) Qty: 414 0RF ondansetron 4 mg tablet,disintegrating 4 mg PO TID-QID PRN (Reason: nausea and vomiting) Qty: 10 0RF oxycodone 5 mg tablet 5 mg PO Q6H PRN (Reason: pain) Qty: 14 0RF atorvastatin PO atomoxetine PO cetirizine [All Day Allergy (cetirizine)] 10 mg PO DAILY estradiol PO empagliflozin [Jardiance] PO dexlansoprazole [Dexilant] PO clonazepam 1 mg PO BID prazosin 1 mg PO BID duloxetine PO gabapentin 800 mg PO BID trazodone 75 mg PO BEDTIME propranolol 80 mg PO BEDTIME spironolactone PO metformin 1,000 mg PO DAILY multivitamin [One Daily Multivitamin] 1 tab PO Referrals: Nidhi Faustin DO [Primary Care Provider] - Stand Alone Forms: Patient Portal/API
[2022-08-06 22:42] LABS: Add Manual Diff / Slide Review NO; Basophils Absolute Auto 100 /uL (0-100); Basophils Percent Auto 0.6 % (0-2); Eosinophils Absolute Auto 100 /uL (0-450); Eosinophils Percent Auto 1.2 % (2-4); Hematocrit 41.4 % (36-46); Hemoglobin 13.9 g/dL (12.0-16.0); Lymphocytes Absolute Auto 4200 /uL (1100-4500); Lymphocytes Percent Auto 34.7 % (25-40); Mean Corpuscular HGB Conc 33.4 % (30-36); Mean Corpuscular Hemoglobin 30.4 PG (26-34); Mean Corpuscular Volume 90.8 fL (80-100); Monocytes Absolute Auto 700 /uL (0-900); Monocytes Percent Auto 5.6 % (3-14); Neutrophils Absolute Auto 7100 /uL (1500-7000); Neutrophils Percent Auto 57.9 % (50-75); Platelet Count 203 X10^3/uL (150-400); Red Blood Cell Count 4.56 X10^6/uL (4.0-5.2); Red Cell Distribution Width 13.7 % (11.6-14.8); White Blood Cell Count 12.2 X10^3/uL (4.5-11.0)
[2022-08-06 22:53] LABS: Alanine Aminotransferase 16 IU/L (<35); Albumin 3.8 g/dL (3.5-5.0); Albumin Globulin Ratio 1.2 (1.0-2.8); Alkaline Phosphatase 72 U/L (38-126); Aspartate Aminotransferase 19 IU/L (14-36); BUN Creatinine Ratio 11.3 (6-22); Bilirubin Total 0.5 mg/dL (0.2-1.3); Blood Urea Nitrogen 8 mg/dL (7-17); Calcium 8.9 mg/dL (8.4-10.2); Carbon Dioxide 30 mmol/L (22-32); Chloride 102 mmol/L (98-107); Estimated Glomerular Filt Rate > 60 mL/min (>60); Globulin 3.3 g/dL (1.7-4.1); Glucose 95 mg/dL (70-100); HEMOLYSIS 20 (0-50); Lipase 86 U/L (23-300); Potassium 4.6 mmol/L (3.4-5.1); Sodium 137 mmol/L (137-145); Total Protein 7.1 g/dL (6.3-8.2)
[2022-08-06] MEDS: SODIUM CHLORIDE 0.9% 1,000 ML 1000 ML IV (22:55)
[2022-08-06] MEDS: KETOROLAC 30 MG/ML VIAL 15 MG IV (22:56)
[2022-08-06 23:04] VITALS: PULSE 65; O2SAT 99
[2022-08-06 23:30] VITALS: BP 144/62; PULSE 73; O2SAT 99
[2022-08-07] MEDS: LACTULOSE 20 GM/30 ML SOLUTION PO (00:07)
== END 2022-08-06 23:55 | disposition home or self-care (01) ==
PROVIDERS: Emergency Provider Emergency Medicine; PCP Family Medicine
DX: K59.00 Constipation, unspecified (principal); I10 Essential (primary) hypertension; Z98.890 Other specified postprocedural states
CPT/HCPCS: 36415; 74177; 80053; 81003; 81015; 83690; 85025; 87086; 93005; 93010; 96374; 99284; J1885; Q9967

== ENCOUNTER → 2022-08-13 13:59 | Outpatient (CLI) | payer MEDICARE, OTHER, SELFPAY ==
--- NOTE | 2022-08-13 14:01 | DI.RAD.S_ITS ---
PROCEDURE: XR KUB INDICATIONS: Kidney stones TECHNIQUE: One view of the abdomen acquired. COMPARISON: [facility], CR, XR KUB, 07/19/2022, 16:45. FINDINGS: Surgical changes and devices: None. Bowel: Bowel gas pattern is normal. Soft tissues: Previous calcification projecting over the left renal shadow has resolved. Left double-J ureteral stent in appropriate position. Surgical clips in the right upper quadrant.. Visualized solid organ contours appear normal in size. Bones: No suspicious bony lesions. Lower lumbar spine interbody fusion instrumentation. IMPRESSION: Left ureteral stent in place. Nonvisualized previously noted left renal calculus. Approved by: Tam Abraham M.D. on 08/13/2022 at 16:32
== END ==
PROVIDERS: PCP Family Medicine; Referring Provider Urology; Visit Provider Urology
DX: N20.0 Calculus of kidney (principal)
CPT/HCPCS: 74018; 82365

== ENCOUNTER → 2022-08-13 15:35 | Outpatient (CLI) | payer MEDICARE, OTHER, SELFPAY ==
[2022-08-21 15:00] LABS: Ca oxalate dihydrate 20 % (.); Ca oxalate monohydr 80 % (.)
== END ==
PROVIDERS: PCP Family Medicine; Visit Provider Urology
DX: N20.0 Calculus of kidney (principal); Z96.0 Presence of urogenital implants
CPT/HCPCS: 82365

== ENCOUNTER 2022-09-13 19:42 | Observation (INO) | payer MEDICARE, OTHER, SELFPAY ==
[2022-09-13] VITALS (125 sets, daily range): BP systolic 110–192; BP diastolic 55–90; PULSE 92–121; RESP 16–55; TEMP 36.1–36.8; O2SAT 96–99
--- NOTE | 2022-09-13 19:46 | DI.RAD.S_ITS ---
PROCEDURE: XR CHEST 1V INDICATIONS: over dose TECHNIQUE: One view of the chest was acquired. COMPARISON: [facility], CR, XR CHEST 1V, 03/17/2022, 15:28. FINDINGS: Surgical changes and devices: None. Lungs and pleura: Lungs are clear. No pleural effusions or pneumothorax. Mediastinum: Mediastinal contours appear normal. Heart size is normal. Bones and chest wall: No suspicious bony lesions. Overlying soft tissues appear unremarkable. IMPRESSION: 1. No acute cardiopulmonary disease. Dictated by: Hossein Scott M.D. on 09/13/2022 at 20:00 Approved by: Hossein Scott M.D. on 09/13/2022 at 20:01
--- NOTE | 2022-09-13 19:47 | ED_ITS ---
HPI - Psych General Chief Complaint: Toxicology Problem Stated Complaint: overdose Time Seen by Provider: 09/13/22 19:45 History of Present Illness HPI Narrative: Patient is a 51-year-old female history of HIV diabetes, presents today with suicide attempt. reports that he left her for roughly an hour and a half he came home she had taken a bottle of cyclobenzaprine 10 mg tablets the originally were 90 in the bottle but it was filled in 2018 unknown how many pills were in there initially. She admitted she took in swallowed multiple pills the bottle is now empty. Time of ingestion was over an hour ago tearful is not indicated. She is sleepy. She also cut her left arm with an [employer] knife. She reports that she was trying to kill herself and that she missed her family. states that she has a attempted previously but on so long time ago. Related Data Home Medications Medication Instructions Recorded Confirmed abacavir 600 mg-dolutegravir 50 1 tab PO DAILY 09/14/22 09/14/22 mg-lamivudine 300 mg tablet (Triumeq) atomoxetine 40 mg capsule 40 mg PO QAM 09/14/22 09/14/22 atorvastatin 20 mg tablet 20 mg PO DAILY 09/14/22 09/14/22 buprenorphine 2 mg-naloxone 0.5 mg 4 tab sublingual DAILY 09/14/22 09/14/22 sublingual tablet cetirizine 10 mg tablet 10 mg PO DAILY 09/14/22 09/14/22 clonazepam 1 mg tablet 1.5 mg PO BEDTIME 09/14/22 09/14/22 clonazepam 1 mg tablet 2 mg PO QAM 09/14/22 09/14/22 dexlansoprazole 60 mg 60 mg PO DAILY 09/14/22 09/14/22 capsule,biphase delayed release (Dexilant) empagliflozin 10 mg tablet 10 mg PO QAM 09/14/22 09/14/22 (Jardiance) estradiol 1 mg tablet 1 mg PO DAILY 09/14/22 09/14/22 gabapentin 800 mg tablet 800 mg PO BID 09/14/22 09/14/22 metformin 1,000 mg tablet 1,000 mg PO BIDWMEAL 09/14/22 09/14/22 metoclopramide HCl 10 mg tablet 10 mg PO 4XD 09/14/22 09/14/22 ondansetron 4 mg disintegrating 4 mg PO 4XD PRN nausea/vomiting 09/14/22 09/14/22 tablet prazosin 2 mg capsule 2 mg PO BEDTIME 09/14/22 09/14/22 propranolol 80 mg capsule,extended 80 mg PO DAILY 09/14/22 09/14/22 release 24 hr spironolactone 50 mg tablet 50 mg PO QAM 09/14/22 09/14/22 trazodone 150 mg tablet 150 mg PO BEDTIME 09/14/22 09/14/22 Allergies Allergy/AdvReac Type Severity Reaction Status Date / Time levofloxacin [LEVOFLOXACIN] Allergy Severe hives Verified 09/14/22 11:29 Sulfa (Sulfonamide Allergy Severe rash Verified 09/14/22 11:29 Antibiotics) [SULFA (SULFONAMIDE ANTIBIOTICS)] amoxicillin [From AUGMENTIN] Allergy Mild rash Verified 09/14/22 11:29 ciprofloxacin [From CIPRO] Allergy Mild rash Verified 09/14/22 11:29 clarithromycin [From BIAXIN] Allergy Mild rash Verified 09/14/22 11:29 clavulanic acid Allergy Mild rash Verified 09/14/22 11:29 [From AUGMENTIN] morphine [MORPHINE] AdvReac Mild n/v Verified 09/14/22 11:29 pregabalin [PREGABALIN] AdvReac Mild lost voice Verified 09/14/22 11:29 Review of Systems Review of Systems ROS Unobtainable: All systems reviewed & are unremarkable except as noted in HPI and below Patient History Medical History Anxiety Arthritis Bipolar disorder Depression Diabetes mellitus Fibroids GERD (gastroesophageal reflux disease) History of gastrointestinal symptoms History of liver disease HIV (human immunodeficiency virus infection) Hx of migraine headaches Hx of osteoarthritis Hypertension Kidney stone on left side PTSD (post-traumatic stress disorder) Retained ureteral stent Surgical History History of cystoscopy (2013) History of stress incontinence procedure using tension free vaginal tape (2013) S/P functional endoscopic sinus surgery (2002) Status post arthroscopy (2003) Status post cholecystectomy (2011) Status post laparoscopic supracervical hysterectomy (2011) Family History Father Diabetes mellitus Hypertension CVA (cerebral vascular accident) Mother Diabetes mellitus Hypertension CVA (cerebral vascular accident) Hearing impairment Brother Hypertension Social History marital status: number of children: 3 household members: spouse occupational status: disabled Smoking Status: Current every day smoker alcohol intake: never caffeine: Yes Type(s) of exercise: none Smoking Status: Current every day smoker tobacco type: cigarettes alcohol intake frequency: holidays/special occasions only Substance Use Type: marijuana Exam Initial Vital Signs Initial Vital Signs: Vital Signs Temperature 96.9 F L 09/13/22 19:41 Pulse Rate 101 H 09/13/22 19:41 Respiratory Rate 27 H 09/13/22 19:41 Blood Pressure 111/65 09/13/22 19:41 Pulse Oximetry 98 09/13/22 19:41 Oxygen Delivery Method Nasal Cannula 09/13/22 19:41 Oxygen Flow Rate 2 09/13/22 19:41 GENERAL: Drowsy but able to answer some questions and follow some commands HEENT: Head atraumatic,EOMI, pupils reactive, face symmetric, moist mucous membranes CARDIOVASCULAR: Regular rate and rhythm without murmurs, rubs or gallops. RESPIRATORY: Breath sounds equal bilaterally, no wheezes rales or rhonchi. ABDOMEN: Soft, nontender. Normoactive bowel sounds all 4 quadrants. No guarding or rebound. EXTREMITIES: Normal range of motion, no clubbing or edema. Neurovascularly intact NEUROLOGICAL: Alert and oriented x2. Moving all extremities SKIN: Multiple superficial lacerations on left for Course Orders Ordered: Discontinued Medications Acetaminophen (Acetaminophen 325 Mg Tablet) 650 mg PO Q6H PRN PRN Reason: Fever/Mild Pain (1-3) Last Admin: 09/15/22 05:30 Dose: 650 mg Documented By: Admin: 09/14/22 21:18 Dose: 650 mg Documented By: FLORENTINO Atorvastatin Calcium (Atorvastatin 20 Mg Tablet) 20 mg PO BEDTIME MILY Last Admin: 09/14/22 21:18 Dose: 20 mg Documented By: FLORENTINO Bacitracin (Bacitracin Oint 0.9 Gm Pckt) 2 applic TOP NOW ONE Stop: 09/13/22 19:56 Last Admin: 09/13/22 20:04 Dose: 2 applic Documented By: TONNY Benzonatate (Benzonatate 100 Mg Capsule) 100 mg PO TID PRN PRN Reason: Cough Last Admin: 09/14/22 23:23 Dose: 100 mg Documented By: SMS Buprenorphine/Naloxone (Buprenorphine/Naloxone 8mg/2mg 1 Tab) 1 tab SL DAILY [facility] Last Admin: 09/15/22 08:08 Dose: 1 tab Documented By: CORTES Clonazepam (Clonazepam 0.5 Mg Tablet) 2 mg PO DAILY [facility] Last Admin: 09/15/22 08:08 Dose: 2 mg Documented By: CORTES Dextrose (Dextrose 50 % In Water 25 Gm/50 Ml Syringe) 25 gm IV PRN PRN PRN Reason: Hypoglycemia Estradiol (Estradiol 1 Mg Tablet) 1 mg PO NOW ONE Stop: 09/14/22 11:53 Last Admin: 09/14/22 12:29 Dose: 1 mg Documented By: CTS Estradiol (Estradiol 1 Mg Tablet) 1 mg PO DAILY [facility] Last Admin: 09/15/22 08:08 Dose: 1 mg Documented By: CORTES Gabapentin (Gabapentin 400 Mg Capsule) 800 mg PO NOW ONE Stop: 09/14/22 12:31 Last Admin: 09/14/22 12:29 Dose: 800 mg Documented By: CTS Gabapentin (Gabapentin 400 Mg Capsule) 800 mg PO BID [facility] Last Admin: 09/15/22 08:08 Dose: 800 mg Documented By: CORTES Sodium Chloride (Normal Saline 0.9%) 1,000 mls @ 150 mls/hr IV CONT [facility] Stop: 09/14/22 16:26 Last Infusion: 09/14/22 03:30 Dose: 0 mls/hr Documented By: Admin: 09/13/22 19:54 Dose: 150 mls/hr Documented By: Sodium Chloride (Normal Saline 0.9%) 1,000 mls @ 75 mls/hr IV CONT [facility] Last Admin: 09/14/22 18:09 Dose: 75 mls/hr Documented By: Infusion: 09/14/22 17:20 Dose: 150 mls/hr Documented By: Infusion: 09/14/22 16:21 Dose: 150 mls/hr Documented By: Admin: 09/14/22 10:40 Dose: 150 mls/hr Documented By: Infusion: 09/14/22 10:38 Dose: 150 mls/hr Documented By: Admin: 09/14/22 03:57 Dose: 150 mls/hr Documented By: GC Insulin Human Lispro (Insulin Lispro 100 Unit/Ml 3ml Vial) 0 unit SUBCUT ACHS [facility]; Protocol Last Admin: 09/15/22 08:53 Dose: Not Given Documented By: Admin: 09/14/22 21:18 Dose: Not Given Documented By: [facility] Admin: 09/14/22 17:03 Dose: Not Given Documented By: CORTES Ketorolac Tromethamine (Ketorolac 30 Mg/Ml Vial) 15 mg IV NOW ONE Stop: 09/14/22 05:11 Last Admin: 09/14/22 05:21 Dose: 15 mg Documented By: Lorazepam (Lorazepam 2 Mg/Ml Inj) 1 mg IV NOW ONE Stop: 09/13/22 20:13 Last Admin: 09/13/22 20:16 Dose: 1 mg Documented By: ASPEN Lorazepam (Lorazepam 2 Mg/Ml Inj) 1 mg IV NOW ONE Stop: 09/14/22 01:34 Last Admin: 09/14/22 01:40 Dose: 1 mg Documented By: NICHOLAS Lorazepam (Lorazepam 2 Mg/Ml Inj) 1 mg IV NOW ONE Stop: 09/14/22 01:52 Last Admin: 09/14/22 01:54 Dose: 1 mg Documented By: NICHOLAS Lorazepam (Lorazepam 2 Mg/Ml Inj) 1 mg IV NOW ONE Stop: 09/14/22 05:23 Last Admin: 09/14/22 05:24 Dose: 1 mg Documented By: Lorazepam (Lorazepam 2 Mg/Ml Inj) 1 mg IV NOW ONE Stop: 09/14/22 06:27 Last Admin: 09/14/22 12:28 Dose: Not Given Documented By: CARLOTTA Metformin HCl (Metformin Hcl 500 Mg Tablet) 1,000 mg PO NOW ONE Stop: 09/14/22 11:56 Last Admin: 09/14/22 12:29 Dose: 1,000 mg Documented By: CARLOTTA Metoclopramide HCl (Metoclopramide Hcl 5 Mg Tablet) 10 mg PO NOW ONE Stop: 09/14/22 11:53 Last Admin: 09/14/22 12:29 Dose: 10 mg Documented By: CARLOTTA Naloxone HCl (Naloxone 0.4 Mg/Ml Vial) 0.2 mg IV Q2MIN PRN PRN Reason: Opiate Reversal Nicotine (Nicotine 14 Patch) 14 mg TOP DAILY [facility] Last Admin: 09/15/22 08:08 Dose: 14 mg Documented By: Admin: 09/15/22 02:35 Dose: 14 mg Documented By: FLORENTINO Non-Formulary Medication (Atomoxetine) 40 mg PO NOW ONE Stop: 09/14/22 11:59 Last Admin: 09/14/22 12:28 Dose: 40 mg Documented By: CARLOTTA Non-Formulary Medication (Dexlansoprazole) 60 mg PO NOW ONE Stop: 09/14/22 11:59 Last Admin: 09/14/22 12:30 Dose: 60 mg Documented By: CARLOTTA Non-Formulary Medication (Jardiance) 10 mg PO NOW ONE Stop: 09/14/22 12:00 Last Admin: 09/14/22 12:30 Dose: 10 mg Documented By: CARLOTTA Non-Formulary Medication (Propranolol Er 24 Hr) 80 mg PO NOW ONE Stop: 09/14/22 12:01 Last Admin: 09/14/22 12:29 Dose: 80 mg Documented By: CARLOTTA Non-Formulary Medication (Triumeq 600-50-300 Mg) 1 tab PO NOW ONE Stop: 09/14/22 12:01 Last Admin: 09/14/22 12:29 Dose: 1 tab Documented By: CARLOTTA Henry - Atomoxetine 40 (Mg Capsule) 40 mg PO DAILY [facility] Last Admin: 09/15/22 08:07 Dose: 40 mg Documented By: CORTES Henry - Dexlansoprazole (Dexilant) Er 60 Mg Capsule 60 mg PO DAILY [facility] Last Admin: 09/15/22 08:07 Dose: 60 mg Documented By: CORTES Henry - Empagliflozin ( Jardiance) 10 Mg Tablet 10 mg PO DAILY [facility] Last Admin: 09/15/22 08:07 Dose: 10 mg Documented By: CORTES Henry - Propranolol 80 (Mg Er Capsule) 80 mg PO DAILY [facility] Last Admin: 09/15/22 08:08 Dose: 80 mg Documented By: CORTES Henry - Abacavir- Dolutegravir-Lamivud (Triumeq) 600-50- 300 Mg Tablet 1 tab PO DAILY [facility] Last Admin: 09/15/22 08:08 Dose: 1 tab Documented By: CORTES Ondansetron HCl (Ondansetron 4 Mg/2 Ml Inj) 4 mg IV NOW ONE Stop: 09/14/22 05:11 Last Admin: 09/14/22 05:21 Dose: 4 mg Documented By: Oxycodone HCl (Oxycodone Ir 5 Mg Tablet) 5 mg PO NOW ONE Stop: 09/14/22 06:36 Last Admin: 09/14/22 06:48 Dose: 5 mg Documented By: GC Prazosin HCl (Prazosin 1 Mg Capsule) 2 mg PO BEDTIME [facility] Last Admin: 09/14/22 21:18 Dose: 2 mg Documented By: FLORENTINO Spironolactone (Spironolactone 25 Mg Tablet) 50 mg PO NOW ONE Stop: 09/14/22 11:53 Last Admin: 09/14/22 12:29 Dose: 50 mg Documented By: CARLOTTA Spironolactone (Spironolactone 25 Mg Tablet) 50 mg PO DAILY [facility] Last Admin: 09/15/22 08:08 Dose: 50 mg Documented By: CORTES Vital Signs Vital signs: Vital Signs - 8 hr 09/14/22 08:00 09/14/22 08:00 09/14/22 08:30 Temperature 98.2 F Pulse Rate 86 Respiratory Rate 22 Blood Pressure 123/69 152/68 H Pulse Oximetry 96 09/14/22 08:30 09/14/22 09:00 09/14/22 09:00 Temperature 97.9 F 97.5 F L Pulse Rate 85 84 Respiratory Rate 22 21 Blood Pressure 142/66 H Pulse Oximetry 95 95 09/14/22 09:30 09/14/22 09:30 09/14/22 10:00 Temperature 97.5 F L Pulse Rate 82 Respiratory Rate 21 Blood Pressure 150/72 H 159/74 H Pulse Oximetry 96 09/14/22 10:00 09/14/22 10:30 09/14/22 10:30 Temperature 97.7 F 97.7 F Pulse Rate 83 82 Respiratory Rate 21 21 Blood Pressure 158/73 H Pulse Oximetry 96 96 09/14/22 11:00 09/14/22 11:00 09/14/22 11:30 Temperature 97.9 F Pulse Rate 90 Respiratory Rate 26 H Blood Pressure 163/80 H 164/77 H Pulse Oximetry 97 09/14/22 11:30 09/14/22 12:00 09/14/22 12:00 Temperature 98.1 F 98.2 F Pulse Rate 79 87 Respiratory Rate 35 H 30 H Blood Pressure 162/86 H Pulse Oximetry 98 97 09/14/22 12:30 09/14/22 12:30 09/14/22 12:59 Temperature 98.2 F 98.4 F Pulse Rate 87 89 Respiratory Rate 27 H 24 Blood Pressure 160/76 H Pulse Oximetry 98 97 09/14/22 13:00 Temperature Pulse Rate Respiratory Rate Blood Pressure 176/85 H Pulse Oximetry MDM - Psych Lab Data 09/15/22 04:08 09/15/22 04:08 Labs: Lab Results 09/13/22 09/13/22 09/13/22 Range/Units 19:40 19:40 19:40 WBC 9.5 (4.5-11.0) X10^3/uL RBC 4.91 (4.0-5.2) X10^6/uL Hgb 15.2 (12.0-16.0) g/dL Hct 45.1 (36-46) % MCV 91.8 (80-100) fL MCH 31.0 (26-34) PG MCHC 33.7 (30-36) % RDW 14.1 (11.6-14.8) % Plt Count 237 (150-400) X10^3/uL Neut % (Auto) 49.5 L (50-75) % Lymph % (Auto) 42.7 H (25-40) % [place] % (Auto) 6.0 (3-14) % Eos % (Auto) 1.6 L (2-4) % Baso % (Auto) 0.2 (0-2) % Neut # (Auto) 4700 (2451-2502) /uL Lymph # (Auto) 4000 (9094-0692) /uL [place] # (Auto) 600 (0-900) /uL Eos # (Auto) 200 (0-450) /uL Baso # (Auto) 0 (0-100) /uL Sodium 138 (137-145) mmol/L Potassium 4.2 (3.4-5.1) mmol/L Chloride 101 (98-107) mmol/L Carbon Dioxide 29 (22-32) mmol/L BUN 10 (7-17) mg/dL Creatinine 0.98 (0.52-1.04) mg/dL Estimated GFR > 60 (>60) mL/min BUN/Creatinine Ratio 10.2 (6-22) Glucose 170 H (70-100) mg/dL Lactate (0.7-2.1) mmol/L Calcium 9.6 (8.4-10.2) mg/dL Total Bilirubin 0.5 (0.2-1.3) mg/dL Conjugated Bilirubin 0.0 (0.0-0.3) md/dL Unconjugated Bilirubin 0.1 (0.0-1.1) mg/dL AST 29 (14-36) IU/L ALT 19 (<35) IU/L Alkaline Phosphatase 85 (38-126) U/L Ammonia (9-30) umol/L Total Creatine Kinase 30 (30-135) U/L CK-MB (CK-2) TNP CK-MB (CK-2) Rel Index TNP Troponin I < 0.012 (0.01-0.034) ng/mL Total Protein 8.2 (6.3-8.2) g/dL Albumin 4.4 (3.5-5.0) g/dL Globulin 3.8 (1.7-4.1) g/dL Albumin/Globulin Ratio 1.2 (1.0-2.8) Urine Color Urine Appearance Urine pH (4.5-8.0) Ur Specific [place] (1.000-1.035) Urine Protein (Negative) Urine Glucose (UA) (Negative) g/dL Urine Ketones (NEGATIVE) Urine Occult Blood (Negative) Urine Nitrate (Negative) Urine Bilirubin (NEGATIVE) Urine Urobilinogen (0.2) E.U./dL Ur Leukocyte Esterase (NEGATIVE) Urine RBC (0-5/HPF) Urine WBC (0-5/HPF) Urine Bacteria (None) Ur Culture Indicated? Micro UA Comment Salicylates < 1.0 (<20) mg/dL U Opiates 300ng/mL cut (Negative) Ur Oxycodone Screen (Negative) Urine Methadone Screen (Negative) Acetaminophen < 10 (10-30) ug/mL Ur Barbiturates Screen (Negative) U Tricyclic Antidepress (Negative) Ur Phencyclidine Scrn (Negative) Ur Amphetamines Screen (Negative) U Methamphetamines Scrn (Negative) Ur MDMA Scrn (Ecstasy) (Negative) U Benzodiazepines Scrn (Negative) Urine Cocaine Screen (Negative) U Marijuana (THC) Screen (Negative) Ethyl Alcohol < 10 ( - 10) mg/dL SARS-CoV-2 (PCR) (Negative) 05/21/23 05/21/23 05/21/23 Range/Units 19:40 20:00 20:15 WBC (4.5-11.0) X10^3/uL RBC (4.0-5.2) X10^6/uL Hgb (12.0-16.0) g/dL Hct (36-46) % MCV (80-100) fL MCH (26-34) PG MCHC (30-36) % RDW (11.6-14.8) % Plt Count (150-400) X10^3/uL Neut % (Auto) (50-75) % Lymph % (Auto) (25-40) % [place] % (Auto) (3-14) % Eos % (Auto) (2-4) % Baso % (Auto) (0-2) % Neut # (Auto) (9193-3637) /uL Lymph # (Auto) (0076-9075) /uL [place] # (Auto) (0-900) /uL Eos # (Auto) (0-450) /uL Baso # (Auto) (0-100) /uL Sodium (137-145) mmol/L Potassium (3.4-5.1) mmol/L Chloride (98-107) mmol/L Carbon Dioxide (22-32) mmol/L BUN (7-17) mg/dL Creatinine (0.52-1.04) mg/dL Estimated GFR (>60) mL/min BUN/Creatinine Ratio (6-22) Glucose (70-100) mg/dL Lactate 2.0 (0.7-2.1) mmol/L Calcium (8.4-10.2) mg/dL Total Bilirubin (0.2-1.3) mg/dL Conjugated Bilirubin (0.0-0.3) md/dL Unconjugated Bilirubin (0.0-1.1) mg/dL AST (14-36) IU/L ALT (<35) IU/L Alkaline Phosphatase (38-126) U/L Ammonia < 9 L (9-30) umol/L Total Creatine Kinase (30-135) U/L CK-MB (CK-2) CK-MB (CK-2) Rel Index Troponin I (0.01-0.034) ng/mL Total Protein (6.3-8.2) g/dL Albumin (3.5-5.0) g/dL Globulin (1.7-4.1) g/dL Albumin/Globulin Ratio (1.0-2.8) Urine Color Urine Appearance Urine pH (4.5-8.0) Ur Specific [place] (1.000-1.035) Urine Protein (Negative) Urine Glucose (UA) (Negative) g/dL Urine Ketones (NEGATIVE) Urine Occult Blood (Negative) Urine Nitrate (Negative) Urine Bilirubin (NEGATIVE) Urine Urobilinogen (0.2) E.U./dL Ur Leukocyte Esterase (NEGATIVE) Urine RBC (0-5/HPF) Urine WBC (0-5/HPF) Urine Bacteria (None) Ur Culture Indicated? Micro UA Comment Salicylates (<20) mg/dL U Opiates 300ng/mL cut (Negative) Ur Oxycodone Screen (Negative) Urine Methadone Screen (Negative) Acetaminophen (10-30) ug/mL Ur Barbiturates Screen (Negative) U Tricyclic Antidepress (Negative) Ur Phencyclidine Scrn (Negative) Ur Amphetamines Screen (Negative) U Methamphetamines Scrn (Negative) Ur MDMA Scrn (Ecstasy) (Negative) U Benzodiazepines Scrn (Negative) Urine Cocaine Screen (Negative) U Marijuana (THC) Screen (Negative) Ethyl Alcohol ( - 10) mg/dL SARS-CoV-2 (PCR) Negative (Negative) 09/13/22 09/14/22 09/14/22 Range/Units 20:43 06:30 08:11 WBC (4.5-11.0) X10^3/uL RBC (4.0-5.2) X10^6/uL Hgb (12.0-16.0) g/dL Hct (36-46) % MCV (80-100) fL MCH (26-34) PG MCHC (30-36) % RDW (11.6-14.8) % Plt Count (150-400) X10^3/uL Neut % (Auto) (50-75) % Lymph % (Auto) (25-40) % [place] % (Auto) (3-14) % Eos % (Auto) (2-4) % Baso % (Auto) (0-2) % Neut # (Auto) (2872-8023) /uL Lymph # (Auto) (7195-9065) /uL [place] # (Auto) (0-900) /uL Eos # (Auto) (0-450) /uL Baso # (Auto) (0-100) /uL Sodium (137-145) mmol/L Potassium (3.4-5.1) mmol/L Chloride (98-107) mmol/L Carbon Dioxide (22-32) mmol/L BUN (7-17) mg/dL Creatinine (0.52-1.04) mg/dL Estimated GFR (>60) mL/min BUN/Creatinine Ratio (6-22) Glucose (70-100) mg/dL Lactate (0.7-2.1) mmol/L Calcium (8.4-10.2) mg/dL Total Bilirubin (0.2-1.3) mg/dL Conjugated Bilirubin (0.0-0.3) md/dL Unconjugated Bilirubin (0.0-1.1) mg/dL AST (14-36) IU/L ALT (<35) IU/L Alkaline Phosphatase (38-126) U/L Ammonia (9-30) umol/L Total Creatine Kinase (30-135) U/L CK-MB (CK-2) CK-MB (CK-2) Rel Index Troponin I (0.01-0.034) ng/mL Total Protein (6.3-8.2) g/dL Albumin (3.5-5.0) g/dL Globulin (1.7-4.1) g/dL Albumin/Globulin Ratio (1.0-2.8) Urine Color Yellow Urine Appearance Clear Urine pH 5.5 (4.5-8.0) Ur Specific [place] 1.010 (1.000-1.035) Urine Protein Negative (Negative) Urine Glucose (UA) 3+ H (Negative) g/dL Urine Ketones Negative (NEGATIVE) Urine Occult Blood Negative (Negative) Urine Nitrate Negative (Negative) Urine Bilirubin Negative (NEGATIVE) Urine Urobilinogen 0.2 (0.2) E.U./dL Ur Leukocyte Esterase Negative (NEGATIVE) Urine RBC None seen (0-5/HPF) Urine WBC None seen (0-5/HPF) Urine Bacteria None seen (None) Ur Culture Indicated? Cult not indicated Micro UA Comment Microscopic normal Salicylates (<20) mg/dL U Opiates 300ng/mL cut Negative (Negative) Ur Oxycodone Screen Negative (Negative) Urine Methadone Screen Negative (Negative) Acetaminophen (10-30) ug/mL Ur Barbiturates Screen Negative (Negative) U Tricyclic Antidepress Positive H (Negative) Ur Phencyclidine Scrn Negative (Negative) Ur Amphetamines Screen Negative (Negative) U Methamphetamines Scrn Negative (Negative) Ur MDMA Scrn (Ecstasy) Negative (Negative) U Benzodiazepines Scrn Negative (Negative) Urine Cocaine Screen Negative (Negative) U Marijuana (THC) Screen Positive H (Negative) Ethyl Alcohol ( - 10) mg/dL SARS-CoV-2 (PCR) Negative (Negative) Point of Care Testing Test Results Negative Glucose POC 152 Urine Dip Bedside Urine Glucose 1000 mg/dl Bedside Urine Bilirubin - Negative Bedside Urine Ketone - Negative Urine Specific [place] 1.005 Bedside Urine Occult Blood - Negative Bedside Urine pH 6.0 Bedside Urine Protein - Negative Bedside Urine Urobilinogen 0.2 mg/dl Bedside Urine Nitrite - Negative Bedside Urine Leukocytes - Negative Esterase Imaging Data Chest x-ray: Radiologist's Impression: PROCEDURE:? XR CHEST 1V ? INDICATIONS:? over dose ? TECHNIQUE:? One view of the chest was acquired.? ? COMPARISON:? [facility], , XR CHEST 1V, 03/17/2022, 15:28. ? FINDINGS:? ? Surgical changes and devices:? None.? ? Lungs and pleura:? Lungs are clear.? No pleural effusions or pneumothorax.? ? Mediastinum:? Mediastinal contours appear normal.? Heart size is normal.? ? Bones and chest wall:? No suspicious bony lesions.? Overlying soft tissues appear unremarkable.? ? IMPRESSION:? ? 1.? No acute cardiopulmonary disease. ? ? ? Dictated by: Hossein Scott M.D. on 09/13/2022 at 20:00 ? ? ECG Data Interpretation: Sinus rhythm rate 96 NC interval 144 QRS [address] changes no T-wave inversions MDM Narrative Medical decision making narrative: Patient is a 51-year-old female history of diabetes HIV presenting with suicide attempt. She has multiple superficial cuts over her left arm and took an unknown number of 10 mg cyclobenzaprine tablets. Poison control was immediately called. Told to watch for at least 8 hours. Likely cause increase sedation hypotension decreased respirations can cause seizures and increase QRC prolongation. Recommended benzodiazepine for agitation and seizures. Patient required a nasal airway to help with airway protection she was still coughing no need for intubation however her tongue was in the pharynx. She remains somnolent and calm for awhile however started becoming more agitated requiring some Ativan doses. Blood work is overall reassuring no leukocytosis or anemia no electrolyte abnormality normal lactic acid tox screen is also negative negative alcohol Tylenol salicylate. Drug screen is positive for marijuana and TCA. No evidence of DKA or hepatic encephalopathy, ammonia level is undetectable. Patient signed out to Dr. Arroyo for further management and disposition Discharge Plan Departure Patient Disposition: Admitted as Observation Clinical Impression: Polysubstance overdose, Suicidal thoughts Admit Date/Time: 09/14/22 15:40 Admit Provider: Saroj Velasquez
[2022-09-13] MEDS: SODIUM CHLORIDE 0.9% 1,000 ML 150 ML IV (19:54)
[2022-09-13] MEDS: BACITRACIN OINT 0.9 GM PCKT 2 APPLIC TOP (20:04)
[2022-09-13 20:11] LABS: Add Manual Diff / Slide Review NO; Basophils Absolute Auto 0 /uL (0-100); Basophils Percent Auto 0.2 % (0-2); Eosinophils Absolute Auto 200 /uL (0-450); Eosinophils Percent Auto 1.6 % (2-4); Hematocrit 45.1 % (36-46); Hemoglobin 15.2 g/dL (12.0-16.0); Lymphocytes Absolute Auto 4000 /uL (1100-4500); Lymphocytes Percent Auto 42.7 % (25-40); Mean Corpuscular HGB Conc 33.7 % (30-36); Mean Corpuscular Volume 91.8 fL (80-100); Monocytes Absolute Auto 600 /uL (0-900); Neutrophils Absolute Auto 4700 /uL (1500-7000); Neutrophils Percent Auto 49.5 % (50-75); Platelet Count 237 X10^3/uL (150-400); Red Blood Cell Count 4.91 X10^6/uL (4.0-5.2); Red Cell Distribution Width 14.1 % (11.6-14.8); White Blood Cell Count 9.5 X10^3/uL (4.5-11.0)
[2022-09-13 20:12] LABS: Creatine Kinase 30 U/L (30-135)
[2022-09-13 20:14] LABS: Acetaminophen < 10 ug/mL (10-30); Alanine Aminotransferase 19 IU/L (<35); Albumin 4.4 g/dL (3.5-5.0); Albumin Globulin Ratio 1.2 (1.0-2.8); Alkaline Phosphatase 85 U/L (38-126); Aspartate Aminotransferase 29 IU/L (14-36); BUN Creatinine Ratio 10.2 (6-22); Bilirubin Total 0.5 mg/dL (0.2-1.3); Bilirubin Unconjugated 0.1 mg/dL (0.0-1.1); Blood Urea Nitrogen 10 mg/dL (7-17); Calcium 9.6 mg/dL (8.4-10.2); Carbon Dioxide 29 mmol/L (22-32); Chloride 101 mmol/L (98-107); Estimated Glomerular Filt Rate > 60 mL/min (>60); Ethanol (ETOH) < 10 mg/dL; Globulin 3.8 g/dL (1.7-4.1); Glucose 170 mg/dL (70-100); Potassium 4.2 mmol/L (3.4-5.1); Salicylate < 1.0 mg/dL (<20); Sodium 138 mmol/L (137-145); Total Protein 8.2 g/dL (6.3-8.2)
[2022-09-13 20:15] LABS: HEMOLYSIS 58 (0-50)
[2022-09-13] MEDS: LORazepam 2 MG/ML INJ 1 MG IV (20:16)
[2022-09-13 20:21] LABS: Ammonia (NH3) < 9 umol/L (9-30)
[2022-09-13 20:25] LABS: Troponin I < 0.012 ng/mL (0.01-0.034)
[2022-09-13 20:38] LABS: COVID19 -Nasal RAPID Negative (Negative)
[2022-09-13 21:03] LABS: Ur Creatinine 20 (Normal); Ur Specific Gravity 1.015 (Normal); Urine Tetrahydrocannabinol Positive (Negative); Urine pH 5 (Normal)
[2022-09-13 21:04] LABS: UR Morphine/Opiate cutoff 300 Negative (Negative); Urine Amphetamines Negative (Negative); Urine Barbiturates Negative (Negative); Urine Benzodiazepines Negative (Negative); Urine Cocaine Negative (Negative); Urine MDMA Negative (Negative); Urine Methadone Negative (Negative); Urine Methamphetamines Negative (Negative); Urine Oxycodone Negative (Negative); Urine Phencyclidine Negative (Negative); Urine Tricyclic Antidepressant Positive (Negative)
--- NOTE | 2022-09-13 21:09 | PC.NURSE ---
small amount of oral suctioning, scant amount return. Nasal trumpet placed by physician
--- NOTE | 2022-09-13 21:09 | PC.NURSE ---
seizure pads placed on bed for safety precautions
[2022-09-14] VITALS (232 sets, daily range): BP systolic 116–196; BP diastolic 60–106; PULSE 69–108; RESP 15–55; TEMP 36.4–37.4; O2SAT 95–100; BMI 32.2
--- NOTE | 2022-09-14 01:33 | PC.NURSE ---
Patient coughing frequently and becoming agitated. HOB raised and NPA removed at this time. Patient intermittently having incomprehensible speech and crying, then appears asleep. Sitter remains at bedside for SI risk.
[2022-09-14] MEDS: LORazepam 2 MG/ML INJ 1 MG IV ×3 (01:40→05:24)
[2022-09-14] MEDS: SODIUM CHLORIDE 0.9% 1,000 ML 150 ML IV ×2 (03:57→10:40)
--- NOTE | 2022-09-14 05:17 | DI.RAD.S_ITS ---
PROCEDURE: XR ABDOMEN 1V INDICATIONS: stent placement TECHNIQUE: One view of the abdomen acquired. COMPARISON: [facility], CT, CT ABDOMEN PELVIS W CON, 08/06/2022, 22:31. [facility], CR, XR KUB, 08/13/2022, 13:59. [facility], CR, ABDOMEN 2 VIEW, 03/03/2008, 8:36. FINDINGS: Surgical changes and devices: Left ureteral stent is seen and stable position. Surgical clips are seen in the right upper quadrant. Lumbar spinal fusion hardware is noted. Bowel: Bowel gas pattern is normal. Soft tissues: Small calcifications are seen projecting over the inferior pole of the left kidney, consistent with known renal calculi. Phleboliths are noted in the pelvis. Visualized solid organ contours appear normal in size. Bones: No suspicious bony lesions. IMPRESSION: Stable left ureteral stent. Left inferior pole renal calculi do not appear significantly changed. There is no significant discrepancy when compared to the overnight preliminary report. Approved by: Christopher Clemens M.D. on 09/14/2022 at 8:38
[2022-09-14] MEDS: KETOROLAC 30 MG/ML VIAL 15 MG IV (05:21)
[2022-09-14] MEDS: ONDANSETRON 4 MG/2 ML INJ IV (05:21)
[2022-09-14] MEDS: OXYCODONE IR 5 MG TABLET PO (06:48)
--- NOTE | 2022-09-14 07:16 | PC.NURSE ---
Pt resting in bed eyes closed. remains on cardiac monitoring. NAD.
--- NOTE | 2022-09-14 07:21 | PC.NURSE ---
Addendum entered by Malu Vigil CNA 09/14/22 16:06: pt. back from CT and WAGON WASHER bedside. Addendum entered by Malu Vigil CNA 09/14/22 11:30: at bedside. pt. discomfort is increasing, pain is at level 8 and is requesting daily home meds. Addendum entered by Malu Vigil CNA 09/14/22 11:14: pt. periodically waking up wincing in pain and then falls back to sleep with eyes closed respirations continue to be even and non labored, asked pt. if there was something I could do to make her more comfortable, pt. stated i want my daily meds so i don't go insane,told pt. I would ask RN, but uncertain if she is allowed to take any more medication. offered a pillow behind lower back to eleviate pt. discomfort on the gurney. HOB elevated as well. pt. asked how long do i have to be here?, told pt. should be here soon. remaining bedside for safety risk. Addendum entered by Malu Vigil CNA 09/14/22 08:15: elevated HOB for pt., applied non-skid socks. Original Note: VOICE PATHOLOGIST note pt. is lying down with eyes close, respirations are even and non-labored. will continue to monitor for safety risk
[2022-09-14 07:32] LABS: COVID19 -Nasal RAPID Negative (Negative)
[2022-09-14 08:18] LABS: Appearance Urine UA CLEAR; Bilirubin Urine UA NEGATIVE (NEGATIVE); Color Urine UA YELLOW; Glucose Urine UA 3+ g/dL (Negative); Ketones Urine UA NEGATIVE (NEGATIVE); Leukocyte Esterase Urine UA NEGATIVE (NEGATIVE); Nitrite Urine UA NEGATIVE (Negative); Occult Blood Urine UA NEGATIVE (Negative); Protein Urine UA NEGATIVE (Negative); Urobilinogen Urine UA 0.2 E.U./dL (0.2)
[2022-09-14 08:21] LABS: pH Urine UA 5.5 (4.5-8.0)
[2022-09-14 08:23] LABS: Bacteria Urine None Seen; Culture Indicated Urine Cult Not Indicated; RBC Urine None Seen (0-5/HPF); Urine Comments Microscopic Normal; WBC Urine None Seen (0-5/HPF)
--- NOTE | 2022-09-14 10:54 | PC.NURSE ---
pt responds to verbal. however falls to sleep easily. can follow simple commands. asking for water which was provided. Asking for pain medication. Spoke to Dr Arroyo and in agreement to hold pain medications for somnolence.
--- NOTE | 2022-09-14 12:08 | PC.NURSE ---
meds reconciled. large black box of meds brought to pharmacy for intake. appropriate daily meds ordered. advised to bring home the rest of pt's medications that are not needed.
[2022-09-14] MEDS: estradioL 1 MG TABLET PO (12:29)
[2022-09-14] MEDS: SPIRONOLACTONE 25 MG TABLET 50 MG PO (12:29)
[2022-09-14] MEDS: GABAPENTIN 400 MG CAPSULE 800 MG PO (12:29)
[2022-09-14] MEDS: TRIUMEQ 1 EACH PO (12:29)
[2022-09-14] MEDS: PROPRANOLOL 80 MG 80 EACH PO (12:29)
[2022-09-14] MEDS: METFORMIN HCL 500 MG TABLET 1000 MG PO (12:29)
[2022-09-14] MEDS: METOCLOPRAMIDE HCL 5 MG TABLET 10 MG PO (12:29)
[2022-09-14] MEDS: DEXLANSOPRAZOLE 60 MG 60 EACH PO (12:30)
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
--- NOTE | 2022-09-14 15:36 | DI.CT.S_ITS ---
PROCEDURE: CT HEAD/BRAIN WO CON INDICATIONS: altered, somnalent TECHNIQUE: Noncontrast 4.5 mm thick angled axial sections acquired from the foramen magnum to the vertex, with coronal and sagittal reformats. For radiation dose reduction, the following was used: automated exposure control, adjustment of mA and/or kV according to patient size. COMPARISON: , CT, CT HEAD/BRAIN WO CON, 07/08/2020, 21:01. FINDINGS: Image quality: Excellent. CSF spaces: Basal cisterns are patent. No extra-axial fluid collections. Ventricles are normal in size and shape. Brain: No midline shift. No intracranial masses or hemorrhage. Sunshine-white matter interface is normal. There are intracranial atherosclerotic calcifications. Skull and face: Calvarium and visualized facial bones are intact, without suspicious lesions. Sinuses: Visualized sinuses and mastoids are clear. IMPRESSION: 1. ASCVD. 2. No acute intracranial process. Dictated by: Alistair Ennis M.D. on 09/14/2022 at 16:15 Approved by: Alistair Ennis M.D. on 09/14/2022 at 16:16
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
[2022-09-14 17:16] LABS: Add Manual Diff / Slide Review NO; Basophils Absolute Auto 0 /uL (0-100); Basophils Percent Auto 0.4 % (0-2); Eosinophils Absolute Auto 100 /uL (0-450); Hemoglobin 13.5 g/dL (12.0-16.0); Lymphocytes Absolute Auto 3500 /uL (1100-4500); Lymphocytes Percent Auto 30.4 % (25-40); Mean Corpuscular HGB Conc 32.9 % (30-36); Mean Corpuscular Hemoglobin 30.1 PG (26-34); Mean Corpuscular Volume 91.3 fL (80-100); Monocytes Absolute Auto 500 /uL (0-900); Monocytes Percent Auto 4.4 % (3-14); Neutrophils Absolute Auto 7400 /uL (1500-7000); Neutrophils Percent Auto 63.8 % (50-75); Platelet Count 250 X10^3/uL (150-400); Red Blood Cell Count 4.49 X10^6/uL (4.0-5.2); Red Cell Distribution Width 14.4 % (11.6-14.8); White Blood Cell Count 11.6 X10^3/uL (4.5-11.0)
--- NOTE | 2022-09-14 17:17 | PC.NURSE ---
Admission: Pt arrived to room 230 in ICU at approximately 16:20. Pt somnolent but arousable, follows commands during slide board transfer from stretcher to bed. Pt rolled from side to side with assist. Hortencia at bedside, aided in admission assessment. Pt awake with eyes open and able to verbalize needs at this time. Pt able to drink water and juice without difficulty. Tearful at this time, stating, I don't want to be at the hospital. BP elevated, other VSS. Bed alarm active, pt 1:1 observation at this time by this RN. Care ongoing.
--- NOTE | 2022-09-14 17:19 | PM.HP.1 ---
History of Present Illness History of Present Illness Chief complaint: overdose Narrative: Shelbie Purdy is a 51yo F with PMH of PTSD, anxiety, depression, bipolar, DM2, HTN, kidney stone s/p retained ureteral stent, HIV, GERD and migraines who presents with AMS after ingesting unknown quantity of flexeril in suicide attempt. Patient very somnolent on arrival to ED. Poison control contacted and recommended monitoring alone for 8 hours. Patient monitored for over 20 hours and was still somnolent and unable to meet with CERTIFIED CODER. Head CT normal. Admitted to the floor and patient more awake. is at bedside who says she has been very depressed lately dealing with her mental issues. Patient says she has thought about overdosing on medications for quite some time. She has never attempted suicide in the past. She took the flexeril to try to escape. She says she is currently not suicidal and has no additional plans. They have no guns in the home. [facility] Medical History Anxiety Arthritis Bipolar disorder Depression Diabetes mellitus Fibroids GERD (gastroesophageal reflux disease) History of gastrointestinal symptoms History of liver disease HIV (human immunodeficiency virus infection) Hx of migraine headaches Hx of osteoarthritis Hypertension Kidney stone on left side PTSD (post-traumatic stress disorder) Retained ureteral stent Surgical History History of cystoscopy (2013) History of stress incontinence procedure using tension free vaginal tape (2013) S/P functional endoscopic sinus surgery (2002) Status post arthroscopy (2003) Status post cholecystectomy (2011) Status post laparoscopic supracervical hysterectomy (2011) Family History Father Diabetes mellitus Hypertension CVA (cerebral vascular accident) Mother Diabetes mellitus Hypertension CVA (cerebral vascular accident) Hearing impairment Brother Hypertension Social History marital status: number of children: 3 household members: spouse occupational status: disabled Smoking Status: Current every day smoker alcohol intake: never caffeine: Yes Type(s) of exercise: none Meds Home Medications and Allergies Home Medications Medication Instructions Recorded Confirmed Type abacavir 600 mg-dolutegravir 50 1 tab PO DAILY 09/14/22 09/14/22 History mg-lamivudine 300 mg tablet (Triumeq) atomoxetine 40 mg capsule 40 mg PO QAM 09/14/22 09/14/22 History atorvastatin 20 mg tablet 20 mg PO DAILY 09/14/22 09/14/22 History buprenorphine 2 mg-naloxone 0.5 mg 4 tab sublingual DAILY 09/14/22 09/14/22 History sublingual tablet cetirizine 10 mg tablet 10 mg PO DAILY 09/14/22 09/14/22 History clonazepam 1 mg tablet 1.5 mg PO BEDTIME 09/14/22 09/14/22 History clonazepam 1 mg tablet 2 mg PO QAM 09/14/22 09/14/22 History dexlansoprazole 60 mg 60 mg PO DAILY 09/14/22 09/14/22 History capsule,biphase delayed release (Dexilant) empagliflozin 10 mg tablet 10 mg PO QAM 09/14/22 09/14/22 History (Jardiance) estradiol 1 mg tablet 1 mg PO DAILY 09/14/22 09/14/22 History gabapentin 800 mg tablet 800 mg PO BID 09/14/22 09/14/22 History metformin 1,000 mg tablet 1,000 mg PO BIDWMEAL 09/14/22 09/14/22 History metoclopramide HCl 10 mg tablet 10 mg PO 4XD 09/14/22 09/14/22 History ondansetron 4 mg disintegrating 4 mg PO 4XD PRN nausea/vomiting 09/14/22 09/14/22 History tablet prazosin 2 mg capsule 2 mg PO BEDTIME 09/14/22 09/14/22 History propranolol 80 mg capsule,extended 80 mg PO DAILY 09/14/22 09/14/22 History release 24 hr spironolactone 50 mg tablet 50 mg PO QAM 09/14/22 09/14/22 History trazodone 150 mg tablet 150 mg PO BEDTIME 09/14/22 09/14/22 History Allergies Allergy/AdvReac Type Severity Reaction Status Date / Time levofloxacin [LEVOFLOXACIN] Allergy Severe hives Verified 09/14/22 11:29 Sulfa (Sulfonamide Allergy Severe rash Verified 09/14/22 11:29 Antibiotics) [SULFA (SULFONAMIDE ANTIBIOTICS)] amoxicillin [From AUGMENTIN] Allergy Mild rash Verified 09/14/22 11:29 ciprofloxacin [From CIPRO] Allergy Mild rash Verified 09/14/22 11:29 clarithromycin [From BIAXIN] Allergy Mild rash Verified 09/14/22 11:29 clavulanic acid Allergy Mild rash Verified 09/14/22 11:29 [From AUGMENTIN] morphine [MORPHINE] AdvReac Mild n/v Verified 09/14/22 11:29 pregabalin [PREGABALIN] AdvReac Mild lost voice Verified 09/14/22 11:29 Review of Systems Review of Systems Narrative: All other systems reviewed with the patient and are negative unless otherwise stated. Exam Vital Signs (past 8 hours): - 09/14/22 09:30 09/14/22 09:30 09/14/22 10:00 Temperature 97.5 F L Pulse Rate 82 Respiratory Rate 21 Blood Pressure 150/72 H 159/74 H Pulse Oximetry 96 09/14/22 10:00 09/14/22 10:30 09/14/22 10:30 Temperature 97.7 F 97.7 F Pulse Rate 83 82 Respiratory Rate 21 21 Blood Pressure 158/73 H Pulse Oximetry 96 96 09/14/22 11:00 09/14/22 11:00 09/14/22 11:30 Temperature 97.9 F Pulse Rate 90 Respiratory Rate 26 H Blood Pressure 163/80 H 164/77 H Pulse Oximetry 97 09/14/22 11:30 09/14/22 12:00 09/14/22 12:00 Temperature 98.1 F 98.2 F Pulse Rate 79 87 Respiratory Rate 35 H 30 H Blood Pressure 162/86 H Pulse Oximetry 98 97 09/14/22 12:30 09/14/22 12:30 09/14/22 12:59 Temperature 98.2 F 98.4 F Pulse Rate 87 89 Respiratory Rate 27 H 24 Blood Pressure 160/76 H Pulse Oximetry 98 97 09/14/22 13:00 09/14/22 13:00 09/14/22 13:30 Temperature 98.4 F Pulse Rate 90 Respiratory Rate 23 Blood Pressure 176/85 H 154/70 H Pulse Oximetry 97 09/14/22 13:30 09/14/22 14:00 09/14/22 14:00 Temperature 98.6 F 98.6 F Pulse Rate 96 H 85 Respiratory Rate 24 25 H Blood Pressure 128/68 Pulse Oximetry 97 96 09/14/22 14:30 09/14/22 14:30 09/14/22 15:00 Temperature 98.6 F Pulse Rate 84 Respiratory Rate 24 Blood Pressure 155/79 H 137/71 Pulse Oximetry 97 09/14/22 15:00 09/14/22 15:30 09/14/22 15:30 Temperature 98.8 F 98.8 F Pulse Rate 81 81 Respiratory Rate 24 31 H Blood Pressure 148/80 H Pulse Oximetry 96 96 09/14/22 15:57 09/14/22 15:57 09/14/22 16:00 Temperature 98.8 F Pulse Rate 91 H Respiratory Rate 28 H Blood Pressure 179/82 H 146/77 H Pulse Oximetry 98 09/14/22 16:00 Temperature 98.8 F Pulse Rate 91 H Respiratory Rate 26 H Blood Pressure Pulse Oximetry 98 Oxygen Delivery Method Room Air Oxygen Flow Rate 0 Narrative Exam Narrative: GEN: tearful, depressed HEENT: moist mucous membranes, PERRL NECK: trachea midline, no JVD CV: regular rate and rhythm, no murmurs PULM: clear bilaterally ABD: soft, nontender, nondistended, no organomegaly EXT: warm and well perfused with no edema NEURO: awake, alert, oriented, no focal deficits Objective Labs 09/14/22 16:43 09/14/22 16:43 Labs: Laboratory Results - last 24 hr 09/13/22 09/13/22 09/13/22 19:40 19:40 19:40 WBC 9.5 RBC 4.91 Hgb 15.2 Hct 45.1 MCV 91.8 MCH 31.0 MCHC 33.7 RDW 14.1 Plt Count 237 Neut % (Auto) 49.5 L Lymph % (Auto) 42.7 H Grant % (Auto) 6.0 Eos % (Auto) 1.6 L Baso % (Auto) 0.2 Neut # (Auto) 4700 Lymph # (Auto) 4000 Grant # (Auto) 600 Eos # (Auto) 200 Baso # (Auto) 0 Sodium 138 Potassium 4.2 Chloride 101 Carbon Dioxide 29 BUN 10 Creatinine 0.98 Estimated GFR > 60 BUN/Creatinine Ratio 10.2 Glucose 170 H Lactate Calcium 9.6 Total Bilirubin 0.5 Conjugated Bilirubin 0.0 Unconjugated Bilirubin 0.1 AST 29 ALT 19 Alkaline Phosphatase 85 Ammonia Total Creatine Kinase 30 CK-MB (CK-2) TNP CK-MB (CK-2) Rel Index TNP Troponin I < 0.012 Total Protein 8.2 Albumin 4.4 Globulin 3.8 Albumin/Globulin Ratio 1.2 Urine Color Urine Appearance Urine pH Ur Specific [place] Urine Protein Urine Glucose (UA) Urine Ketones Urine Occult Blood Urine Nitrate Urine Bilirubin Urine Urobilinogen Ur Leukocyte Esterase Urine RBC Urine WBC Urine Bacteria Ur Culture Indicated? Micro UA Comment Salicylates < 1.0 U Opiates 300ng/mL cut Ur Oxycodone Screen Urine Methadone Screen Acetaminophen < 10 Ur Barbiturates Screen U Tricyclic Antidepress Ur Phencyclidine Scrn Ur Amphetamines Screen U Methamphetamines Scrn Ur MDMA Scrn (Ecstasy) U Benzodiazepines Scrn Urine Cocaine Screen U Marijuana (THC) Screen Ethyl Alcohol < 10 SARS-CoV-2 (PCR) 09/13/22 09/13/22 09/13/22 19:40 20:00 20:15 WBC RBC Hgb Hct MCV MCH MCHC RDW Plt Count Neut % (Auto) Lymph % (Auto) Grant % (Auto) Eos % (Auto) Baso % (Auto) Neut # (Auto) Lymph # (Auto) Grant # (Auto) Eos # (Auto) Baso # (Auto) Sodium Potassium Chloride Carbon Dioxide BUN Creatinine Estimated GFR BUN/Creatinine Ratio Glucose Lactate 2.0 Calcium Total Bilirubin Conjugated Bilirubin Unconjugated Bilirubin AST ALT Alkaline Phosphatase Ammonia < 9 L Total Creatine Kinase CK-MB (CK-2) CK-MB (CK-2) Rel Index Troponin I Total Protein Albumin Globulin Albumin/Globulin Ratio Urine Color Urine Appearance Urine pH Ur Specific [place] Urine Protein Urine Glucose (UA) Urine Ketones Urine Occult Blood Urine Nitrate Urine Bilirubin Urine Urobilinogen Ur Leukocyte Esterase Urine RBC Urine WBC Urine Bacteria Ur Culture Indicated? Micro UA Comment Salicylates U Opiates 300ng/mL cut Ur Oxycodone Screen Urine Methadone Screen Acetaminophen Ur Barbiturates Screen U Tricyclic Antidepress Ur Phencyclidine Scrn Ur Amphetamines Screen U Methamphetamines Scrn Ur MDMA Scrn (Ecstasy) U Benzodiazepines Scrn Urine Cocaine Screen U Marijuana (THC) Screen Ethyl Alcohol SARS-CoV-2 (PCR) Negative 09/13/22 09/14/22 09/14/22 20:43 06:30 08:11 WBC RBC Hgb Hct MCV MCH MCHC RDW Plt Count Neut % (Auto) Lymph % (Auto) Grant % (Auto) Eos % (Auto) Baso % (Auto) Neut # (Auto) Lymph # (Auto) Grant # (Auto) Eos # (Auto) Baso # (Auto) Sodium Potassium Chloride Carbon Dioxide BUN Creatinine Estimated GFR BUN/Creatinine Ratio Glucose Lactate Calcium Total Bilirubin Conjugated Bilirubin Unconjugated Bilirubin AST ALT Alkaline Phosphatase Ammonia Total Creatine Kinase CK-MB (CK-2) CK-MB (CK-2) Rel Index Troponin I Total Protein Albumin Globulin Albumin/Globulin Ratio Urine Color Yellow Urine Appearance Clear Urine pH 5.5 Ur Specific [place] 1.010 Urine Protein Negative Urine Glucose (UA) 3+ H Urine Ketones Negative Urine Occult Blood Negative Urine Nitrate Negative Urine Bilirubin Negative Urine Urobilinogen 0.2 Ur Leukocyte Esterase Negative Urine RBC None seen Urine WBC None seen Urine Bacteria None seen Ur Culture Indicated? Cult not indicated Micro UA Comment Microscopic normal Salicylates U Opiates 300ng/mL cut Negative Ur Oxycodone Screen Negative Urine Methadone Screen Negative Acetaminophen Ur Barbiturates Screen Negative U Tricyclic Antidepress Positive H Ur Phencyclidine Scrn Negative Ur Amphetamines Screen Negative U Methamphetamines Scrn Negative Ur MDMA Scrn (Ecstasy) Negative U Benzodiazepines Scrn Negative Urine Cocaine Screen Negative U Marijuana (THC) Screen Positive H Ethyl Alcohol SARS-CoV-2 (PCR) Negative Assessment & Plan Assessment & Plan narrative: # acute toxic encephalopathy following suicide attempt, encephalopathy resolved -patient ingested presumed large quantity of Flexeril but exact amount unknown -poison control called by ED, rec monitoring for 8hrs alone -drug screen positive for only TCAs and THC -CERTIFIED CODER consult -hold home Suboxone, benzos and trazodone -now awake, alert and oriented # DM2 -hold home metformin -continue jardiance -SSI # HIV -continue Triumeq # GERD -continue home dexilant # ADHD -continue home atomoxetine # hot flashes -continue home estradiol # PTSD -continue home prazosin # HTN -continue home aldactone and propranolol Code status is presumed full code. COVID negative. DVT prophylaxis with SCDs. Proxy is . I have reviewed home meds and used all available resources to reconcile the home meds. This patient will be admitted as inpatient and will require greater than 2 midnights of hospital time to treat toxic metabolic encephalopathy.
[2022-09-14 17:31] LABS: Alanine Aminotransferase 16 IU/L (<35); Albumin 3.5 g/dL (3.5-5.0); Albumin Globulin Ratio 1.2 (1.0-2.8); Alkaline Phosphatase 81 U/L (38-126); Aspartate Aminotransferase 23 IU/L (14-36); BUN Creatinine Ratio 11.3 (6-22); Bilirubin Total 0.6 mg/dL (0.2-1.3); Blood Urea Nitrogen 7 mg/dL (7-17); Calcium 8.7 mg/dL (8.4-10.2); Carbon Dioxide 24 mmol/L (22-32); Chloride 111 mmol/L (98-107); Estimated Glomerular Filt Rate > 60 mL/min (>60); Globulin 2.9 g/dL (1.7-4.1); Glucose 76 mg/dL (70-100); HEMOLYSIS 38 (0-50); Potassium 4.1 mmol/L (3.4-5.1); Sodium 142 mmol/L (137-145); Total Protein 6.4 g/dL (6.3-8.2)
[2022-09-14] MEDS: SODIUM CHLORIDE 0.9% 1,000 ML 75 ML IV (18:09)
[2022-09-14 18:42] LABS: MRSA (Nasal) PCR Not Detected (Not Detect)
[2022-09-14] MEDS: ATORVASTATIN 20 MG TABLET PO (21:18)
[2022-09-14] MEDS: ACETAMINOPHEN 325 MG TABLET 650 MG PO (21:18)
[2022-09-14] MEDS: PRAZOSIN 1 MG CAPSULE 2 MG PO (21:18)
[2022-09-14] MEDS: BENZONATATE 100 MG CAPSULE PO (23:23)
[2022-09-15] VITALS: BP 149/73; PULSE 69; RESP 18; TEMP 36.4; O2SAT 98
--- NOTE | 2022-09-15 02:06 | PC.NURSE ---
Addendum entered by Maria Esther Carreno R.N. 09/15/22 03:42: Nicotine patch ordered per patient request. Continues to loudly argue with , patient is now A/Ox4, declined Tylenol, ice pack, or warmth for back pain. Asked this RN to kindly leave the room so I can talk with my when I asked them to keep the volume down d/t other patients sleeping. Original Note: Drug Coordinator Note-Patient has been awake most of night, but still dozes off readily during care. Wakes up to yell at , speech is mumbled at times. Had dry hacking cough, Tessalon Perles ordered, cough resolved. C/O burning back per , declined offer of ice pack or warm blanket, Tylenol given previously, encouraged to reposition, fell back to sleep while staff speaking. VSS.
[2022-09-15] MEDS: NICOTINE 14 PATCH 14 MG TOP ×2 (02:35→08:08)
[2022-09-15 05:15] LABS: Add Manual Diff / Slide Review NO; Basophils Absolute Auto 0 /uL (0-100); Basophils Percent Auto 0.4 % (0-2); Eosinophils Absolute Auto 100 /uL (0-450); Hemoglobin 14.2 g/dL (12.0-16.0); Lymphocytes Absolute Auto 3200 /uL (1100-4500); Mean Corpuscular Hemoglobin 30.2 PG (26-34); Mean Corpuscular Volume 91.5 fL (80-100); Monocytes Absolute Auto 400 /uL (0-900); Monocytes Percent Auto 3.5 % (3-14); Neutrophils Absolute Auto 8400 /uL (1500-7000); Neutrophils Percent Auto 69.1 % (50-75); Platelet Count 244 X10^3/uL (150-400); Red Cell Distribution Width 14.3 % (11.6-14.8); White Blood Cell Count 12.2 X10^3/uL (4.5-11.0)
[2022-09-15 05:21] LABS: Alanine Aminotransferase 16 IU/L (<35); Albumin Globulin Ratio 1.1 (1.0-2.8); Alkaline Phosphatase 91 U/L (38-126); Aspartate Aminotransferase 21 IU/L (14-36); BUN Creatinine Ratio 10.3 (6-22); Bilirubin Total 0.9 mg/dL (0.2-1.3); Blood Urea Nitrogen 7 mg/dL (7-17); Calcium 8.9 mg/dL (8.4-10.2); Carbon Dioxide 25 mmol/L (22-32); Chloride 107 mmol/L (98-107); Estimated Glomerular Filt Rate > 60 mL/min (>60); Globulin 3.5 g/dL (1.7-4.1); Glucose 99 mg/dL (70-100); HEMOLYSIS < 15 (0-50); Potassium 3.7 mmol/L (3.4-5.1); Sodium 141 mmol/L (137-145); Total Protein 7.5 g/dL (6.3-8.2)
[2022-09-15] MEDS: ACETAMINOPHEN 325 MG TABLET 650 MG PO (05:30)
[2022-09-15 06:00] VITALS: BP 150/72; PULSE 72; RESP 17; TEMP 36.7; O2SAT 99
[2022-09-15] MEDS: ATOMOXETINE 40 MG 40 EACH PO (08:07)
[2022-09-15] MEDS: NF - Empagliflozin (Jardiance) 10 mg Tablet 10 EACH PO (08:07)
[2022-09-15] MEDS: DEXLANSOPRAZOLE 60 MG 60 EACH PO (08:07)
[2022-09-15] MEDS: PROPRANOLOL 80 MG 80 EACH PO (08:08)
[2022-09-15] MEDS: SPIRONOLACTONE 25 MG TABLET 50 MG PO (08:08)
[2022-09-15] MEDS: ABACAVIR DOLUTEGRAVIR LAMIVUD 1 EACH PO (08:08)
[2022-09-15] MEDS: BUPRENORPHINE/NALOXONE 8MG/2MG 1 TAB SL (08:08)
[2022-09-15] MEDS: GABAPENTIN 400 MG CAPSULE 800 MG PO (08:08)
[2022-09-15] MEDS: estradioL 1 MG TABLET PO (08:08)
[2022-09-15] MEDS: clonazePAM 0.5 MG TABLET 2 MG PO (08:08)
[2022-09-15 08:13] VITALS: BP 155/75; PULSE 71; RESP 17; TEMP 36.8; O2SAT 98
--- NOTE | 2022-09-15 08:53 | PC.NURSE ---
Addendum entered by Brandy Aiken R.N. 09/15/22 09:54: Discharge: Pt refused physical assessment. IV's discontinued, telemetry off. Education provided to pt and spouse. Pt own medications retrieved from pharmacy and given to pt spouse. Pt and spouse verbalized understanding of medications, need for follow up with psychologist and PCP. Pt wheeled via wheelchair by PCT with spouse to private vehicle at approximately 0945. Original Note: Day shift: Pt A&O4, in bed. Pt verbalizing request to be discharged. This RN explained to pt that social work needed to assess prior to her discharge. Pt agreeable. Lyman catheter d/c'd. Upon social work entering room, pt requested to use bathroom. Pt stated, I'm taking a shower. This RN explained social work was there to see her but pt insisted she needed a shower prior to seeing social work. Pt tearful, stated, I smell disgusting, I have been depressed for so long now. I haven't showered for too long. Pt has unsteady gait, still tearful and verbalizing desire to go home. This RN assisted with a shower. Pt dressed and sitting on window bench by request. Social work at bedside. Care ongoing.
--- NOTE | 2022-09-15 09:02 | CM.SWNOTE ---
Addendum entered by IRINA Hodge 09/15/22 10:33: ADD: Patient has her primary care through [facility]. Dr Velasquez has communicated w/PCP and requested patient get follow up BLANCA JW Original Note: EXAMINER RATING CLERK Note Dr Velasquez anticipates discharging patient home today w/spouse and requests additional EXAMINER RATING CLERK input Chart reviewed. According to RN,patient and spouse are eager to leave Met w/patient and spouse at bedside w/ EXAMINER RATING CLERK Eneida (in training). Patient standing at the sink, brushing teeth and then trying to get her earrings in. Patient does not make much eye contact with this EXAMINER RATING CLERK, appears suspicious and gets increasingly agitated as visit goes on Patient denies current SI. Patient admits she use to cut however it has been 7 years since she has done so on a regular basis. Patient says she has a lot of stress right now Patient receives Suboxone at [facility] Patient/spouse agree to call patient's PCP BLANCA to get a next available appt. Strongly encouraged patient to consider reestablishing with her counselor, Winsome Weston Patient plans to return home w/her spouse who says I will keep her safe and voices ideas he hopes will minimize patient's triggers According to Dr Velasquez, patient/spouse deny access to firearms in the home It is the opinion of this EXAMINER RATING CLERK that patient can safely discharge home today w/spouse and outpatient supports. Discussed with LYN Nava who agrees. Dr Velasquez updated Plan: Discharge home w/spouse and encouragement for close outpatient follow up IRINA Vides
--- NOTE | 2022-09-15 11:05 | P.DS_ITS ---
History of Present Illness History of Present Illness Chief complaint: overdose Narrative: Shelbie Purdy is a 51yo F with PMH of PTSD, anxiety, depression, bipolar, DM2, HTN, kidney stone s/p retained ureteral stent, HIV, GERD and migraines who presents with AMS after ingesting unknown quantity of flexeril in suicide attempt. Patient very somnolent on arrival to ED. Poison control contacted and recommended monitoring alone for 8 hours. Patient monitored for over 20 hours and was still somnolent and unable to meet with CAMERA OPERATOR. Head CT normal. Admitted to the floor and patient more awake. is at bedside who says she has been very depressed lately dealing with her mental issues. Patient says she has thought about overdosing on medications for quite some time. She has never attempted suicide in the past. She took the flexeril to try to escape. She says she is currently not suicidal and has no additional plans. They have no guns in the home. Discharge Providers Provider Date of admission: 09/14/22 15:40 Discharge Date: 09/15/22 Primary care physician: Nidhi Faustin DO Consults: 09/14/22 00:20 Consult to CAMERA OPERATOR - Abrasive Wheel Molder Stat Comment: Si attempt 09/14/22 16:36 Consult to Dietitian, Adult Routine Comment: Reason For Exam: protocol Discharge provider: Saroj Velasquez DO Summary Hospital Course Discharge Diagnosis: # acute toxic encephalopathy following suicide attempt, encephalopathy resolved -patient ingested presumed large quantity of Flexeril but exact amount unknown -poison control called by ED, rec monitoring for 8hrs alone -drug screen positive for only TCAs and THC -CAMERA OPERATOR consulted and cleared for home, not suicidal -hold home Suboxone, benzos and trazodone -now awake, alert and oriented # DM2 -hold home metformin -continue jardiance -SSI # HIV -continue Triumeq # GERD -continue home dexilant # ADHD -continue home atomoxetine # hot flashes -continue home estradiol # PTSD -continue home prazosin # HTN -continue home aldactone and propranolol Hospital Course: Admitted for SI and ingesting an unknown quantity of flexeril. Head CT negative. Was somnolent in ED for over 20 hours so admitted then returned to baseline mentation on the floor. CAMERA OPERATOR cleared for home. PCP contacted and will get in [facility] for appt. Time Spent with Patient Time spent: Greater than 30 minutes Exam Vital Signs (past 8 hours): - 09/15/22 06:00 09/15/22 08:13 Temperature 98.1 F 98.2 F Pulse Rate 72 71 Respiratory Rate 17 17 Blood Pressure 150/72 H 155/75 H Pulse Oximetry 99 98 Oxygen Flow Rate 0 Oxygen Delivery Method Room Air Oxygen Flow Rate 0 Narrative Exam Narrative: GEN: less tearful and depressed today HEENT: moist mucous membranes, PERRL NECK: trachea midline, no JVD CV: regular rate and rhythm, no murmurs PULM: clear bilaterally ABD: soft, nontender, nondistended, no organomegaly EXT: warm and well perfused with no edema NEURO: awake, alert, oriented, no focal deficits Objective Labs 09/15/22 04:08 09/15/22 04:08 Labs: Laboratory Results - last 24 hr 09/14/22 09/14/22 09/14/22 16:31 16:43 16:43 WBC 11.6 H RBC 4.49 Hgb 13.5 Hct 41.0 MCV 91.3 MCH 30.1 MCHC 32.9 RDW 14.4 Plt Count 250 Neut % (Auto) 63.8 Lymph % (Auto) 30.4 [place] % (Auto) 4.4 Eos % (Auto) 1.0 L Baso % (Auto) 0.4 Neut # (Auto) 7400 H Lymph # (Auto) 3500 [place] # (Auto) 500 Eos # (Auto) 100 Baso # (Auto) 0 Sodium 142 Potassium 4.1 Chloride 111 H Carbon Dioxide 24 BUN 7 Creatinine 0.62 Estimated GFR > 60 BUN/Creatinine Ratio 11.3 Glucose 76 Calcium 8.7 Total Bilirubin 0.6 AST 23 ALT 16 Alkaline Phosphatase 81 Total Protein 6.4 Albumin 3.5 Globulin 2.9 Albumin/Globulin Ratio 1.2 Nasal Screen MRSA (PCR) Not detected 09/15/22 09/15/22 04:08 04:08 WBC 12.2 H RBC 4.70 Hgb 14.2 Hct 43.0 MCV 91.5 MCH 30.2 MCHC 33.0 RDW 14.3 Plt Count 244 Neut % (Auto) 69.1 Lymph % (Auto) 26.0 [place] % (Auto) 3.5 Eos % (Auto) 1.0 L Baso % (Auto) 0.4 Neut # (Auto) 8400 H Lymph # (Auto) 3200 [place] # (Auto) 400 Eos # (Auto) 100 Baso # (Auto) 0 Sodium 141 Potassium 3.7 Chloride 107 Carbon Dioxide 25 BUN 7 Creatinine 0.68 Estimated GFR > 60 BUN/Creatinine Ratio 10.3 Glucose 99 Calcium 8.9 Total Bilirubin 0.9 AST 21 ALT 16 Alkaline Phosphatase 91 Total Protein 7.5 Albumin 4.0 Globulin 3.5 Albumin/Globulin Ratio 1.1 Nasal Screen MRSA (PCR) PFSH Medical History Anxiety Arthritis Bipolar disorder Depression Diabetes mellitus Fibroids GERD (gastroesophageal reflux disease) History of gastrointestinal symptoms History of liver disease HIV (human immunodeficiency virus infection) Hx of migraine headaches Hx of osteoarthritis Hypertension Kidney stone on left side PTSD (post-traumatic stress disorder) Retained ureteral stent Surgical History History of cystoscopy (2013) History of stress incontinence procedure using tension free vaginal tape (2013) S/P functional endoscopic sinus surgery (2002) Status post arthroscopy (2003) Status post cholecystectomy (2011) Status post laparoscopic supracervical hysterectomy (2011) Family History Father Diabetes mellitus Hypertension CVA (cerebral vascular accident) Mother Diabetes mellitus Hypertension CVA (cerebral vascular accident) Hearing impairment Brother Hypertension Social History marital status: number of children: 3 household members: spouse occupational status: disabled Smoking Status: Current every day smoker alcohol intake: never caffeine: Yes Type(s) of exercise: none Discharge Plan Discharge Plan Patient Disposition: Home Provider Discharge Comment: You were admitted for overdosing on flexeril. Your mental status improved and you were cleared to be released home. Please follow- up with your PCP Dr. Faustin to talk about if any of your meds can be adjusted to help you not feel so depressed. Discharge orders & Medications Prescriptions: Continued atorvastatin 20 mg tablet 20 mg PO DAILY cetirizine 10 mg Tablet 10 mg PO DAILY clonazepam 1 mg tablet 2 mg PO QAM clonazepam 1 mg Tablet 1.5 mg PO BEDTIME estradiol 1 mg tablet 1 mg PO DAILY gabapentin 800 mg tablet 800 mg PO BID trazodone 150 mg tablet 150 mg PO BEDTIME metformin 1,000 mg Tablet 1,000 mg PO BIDWMEAL ondansetron 4 mg tablet,disintegrating 4 mg PO 4XD PRN (Reason: nausea/vomiting) Patient Comments: DISSOLVE 1 tablet ON TONGUE 3 TO 4 TIMES DAILY if needed FOR NAUSEA AND VOMITING prazosin 2 mg Capsule 2 mg PO BEDTIME spironolactone 50 mg tablet 50 mg PO QAM metoclopramide HCl 10 mg tablet 10 mg PO 4XD atomoxetine 40 mg capsule 40 mg PO QAM buprenorphine-naloxone 2-0.5 mg tablet, sublingual 4 tab SUBLINGUAL DAILY propranolol 80 mg Capsule,Extended Release 24hr 80 mg PO DAILY dexlansoprazole [Dexilant] 60 mg Capsule,Biphase Delayed Releas 60 mg PO DAILY Jardiance 10 mg Tablet 10 mg PO QAM Triumeq 600-50-300 mg tablet 1 tab PO DAILY Follow up/Referrals: Nidhi Faustin DO [Primary Care Provider] - None (PCP will call to make appt) Visit Report/Discharge Packet Instructions: DI for Suicidal Ideation-Adult Stand Alone Forms: Patient Portal/API, Stroke Signs & Symptoms Discharge Data Primary Care Provider: Nidhi Faustin Attending Provider: Saroj Velasquez Admit Date/Time: 09/14/22 15:40 Discharges patient from system. Discharge Date/Time: 09/15/22 09:45
== END 2022-09-15 09:45 | disposition home or self-care (01) ==
LOC: ED 09-14 07:01 → AC 09-14 15:40 → ICU 09-14 16:22
PROVIDERS: Emergency Medicine; Admitting Provider Student in an Organized Health Care Education/Training Program; Emergency Provider Emergency Medicine; PCP Family Medicine; Visit Provider Student in an Organized Health Care Education/Training Program
DX: T48.1X2A Poisoning by skeletal muscle relaxants [neuromuscular blocking agents], intentional self-harm, initial encounter (principal); G92.8 Other toxic encephalopathy; E11.9 Type 2 diabetes mellitus without complications; B20 Human immunodeficiency virus [HIV] disease; Z79.899 Other long term (current) drug therapy; K21.9 Gastro-esophageal reflux disease without esophagitis; F90.9 Attention-deficit hyperactivity disorder, unspecified type; F43.10 Post-traumatic stress disorder, unspecified; I10 Essential (primary) hypertension; Z79.84 Long term (current) use of oral hypoglycemic drugs; Z20.822 Contact with and (suspected) exposure to COVID-19
CPT/HCPCS: 36415; 51701; 70450; 71045; 74018; 80053; 80076; 80305; 80320; 80329; 81001; 81003; 81025; 82140; 82550; 82962; 83605; 84484; 85025; 87635; 87797; 93005; 93010; 96361; 96374; 96375; 96376; 99285; 99291; 99292; C9803; G0378; G0480; J1815; J1885; J2060; J2405

== ENCOUNTER 2022-09-20 00:15 | Emergency (ER) | payer MEDICARE, OTHER, SELFPAY ==
[2022-09-14 16:30] VITALS: BMI 32.2
[2022-09-20] VITALS (13 sets, daily range): BP systolic 105–115; BP diastolic 56–73; PULSE 77–87; RESP 14–24; TEMP 36.9; O2SAT 95–99; BMI 25.1
[2022-09-20] MEDS: SODIUM CHLORIDE 0.9% 1,000 ML 1000 ML IV (01:35)
[2022-09-20 01:55] LABS: COVID19 -Nasal RAPID Negative (Negative)
--- NOTE | 2022-09-20 01:56 | ED.GENADULT ---
HPI - General Adult General Chief complaint: Weakness Stated complaint: BP LOW Time Seen by Provider: 09/20/22 00:47 Source: patient and family Mode of arrival: Wheelchair History of Present Illness HPI narrative: Patient is a 51-year-old female who arrives in the emergency department with her for evaluation of what she describes as potentially low blood pressure. She was seen here in the emergency department several days ago for an intentional overdose. She was subsequently discharged home. States since that time she is felt very bad about that incident. She denies any current suicidality. She has been taking all of her medications as directed. It seems that since she was been here to the emergency department she has lost interest in doing quite a few things. She states she really has not been eating or drinking very much because she just does not have an appetite. Her and her went and sat near the water today but she had little interest in doing anything. She also states that today she just sat on the bed listening to the TV again with not much interest. She is also recently been seen at an outside facility for very similar symptoms that brought her in today. She stated that she thought that her blood pressure was low specifically was standing up when she was at the other facility she received fluids and then was subsequently discharged home. She denies any chest pain or shortness of breath. She does get occasional tingling around her mouth and also in both of her hands both of her feet. Related Data Home Medications Medication Instructions Recorded Confirmed abacavir 600 mg-dolutegravir 50 1 tab PO DAILY 09/14/22 09/14/22 mg-lamivudine 300 mg tablet (Triumeq) atomoxetine 40 mg capsule 40 mg PO QAM 09/14/22 09/14/22 atorvastatin 20 mg tablet 20 mg PO DAILY 09/14/22 09/14/22 buprenorphine 2 mg-naloxone 0.5 mg 4 tab sublingual DAILY 09/14/22 09/14/22 sublingual tablet cetirizine 10 mg tablet 10 mg PO DAILY 09/14/22 09/14/22 clonazepam 1 mg tablet 1.5 mg PO BEDTIME 09/14/22 09/14/22 clonazepam 1 mg tablet 2 mg PO QAM 09/14/22 09/14/22 dexlansoprazole 60 mg 60 mg PO DAILY 09/14/22 09/14/22 capsule,biphase delayed release (Dexilant) empagliflozin 10 mg tablet 10 mg PO QAM 09/14/22 09/14/22 (Jardiance) estradiol 1 mg tablet 1 mg PO DAILY 09/14/22 09/14/22 gabapentin 800 mg tablet 800 mg PO BID 09/14/22 09/14/22 metformin 1,000 mg tablet 1,000 mg PO BIDWMEAL 09/14/22 09/14/22 metoclopramide HCl 10 mg tablet 10 mg PO 4XD 09/14/22 09/14/22 ondansetron 4 mg disintegrating 4 mg PO 4XD PRN nausea/vomiting 09/14/22 09/14/22 tablet prazosin 2 mg capsule 2 mg PO BEDTIME 09/14/22 09/14/22 propranolol 80 mg capsule,extended 80 mg PO DAILY 09/14/22 09/14/22 release 24 hr spironolactone 50 mg tablet 50 mg PO QAM 09/14/22 09/14/22 trazodone 150 mg tablet 150 mg PO BEDTIME 09/14/22 09/14/22 Allergies Allergy/AdvReac Type Severity Reaction Status Date / Time levofloxacin [LEVOFLOXACIN] Allergy Severe hives Verified 09/14/22 11:29 Sulfa (Sulfonamide Allergy Severe rash Verified 09/14/22 11:29 Antibiotics) [SULFA (SULFONAMIDE ANTIBIOTICS)] amoxicillin [From AUGMENTIN] Allergy Mild rash Verified 09/14/22 11:29 ciprofloxacin [From CIPRO] Allergy Mild rash Verified 09/14/22 11:29 clarithromycin [From BIAXIN] Allergy Mild rash Verified 09/14/22 11:29 clavulanic acid Allergy Mild rash Verified 09/14/22 11:29 [From AUGMENTIN] morphine [MORPHINE] AdvReac Mild n/v Verified 09/14/22 11:29 pregabalin [PREGABALIN] AdvReac Mild lost voice Verified 09/14/22 11:29 Review of Systems Review of Systems ROS Unobtainable: All systems reviewed & are unremarkable except as noted in HPI and below Patient History Medical History Anxiety Arthritis Bipolar disorder Depression Diabetes mellitus Fibroids GERD (gastroesophageal reflux disease) History of gastrointestinal symptoms History of liver disease HIV (human immunodeficiency virus infection) Hx of migraine headaches Hx of osteoarthritis Hypertension Kidney stone on left side PTSD (post-traumatic stress disorder) Retained ureteral stent Surgical History History of cystoscopy (2013) History of stress incontinence procedure using tension free vaginal tape (2013) S/P functional endoscopic sinus surgery (2002) Status post arthroscopy (2003) Status post cholecystectomy (2011) Status post laparoscopic supracervical hysterectomy (2011) Family History Father Diabetes mellitus Hypertension CVA (cerebral vascular accident) Mother Diabetes mellitus Hypertension CVA (cerebral vascular accident) Hearing impairment Brother Hypertension Social History marital status: number of children: 3 household members: spouse occupational status: disabled Smoking Status: Current every day smoker alcohol intake: never caffeine: Yes Type(s) of exercise: none Smoking Status: Current every day smoker tobacco type: cigarettes alcohol intake frequency: holidays/special occasions only Substance Use Type: marijuana Exam Initial Vital Signs Initial Vital Signs: Vital Signs Temperature 98.5 F 09/20/22 00:36 Pulse Rate 86 09/20/22 00:36 Respiratory Rate 18 09/20/22 00:36 Blood Pressure 111/62 09/20/22 00:36 Pulse Oximetry 97 09/20/22 00:36 Oxygen Delivery Method Room Air 09/20/22 00:36 Const General: cooperative, comfortable and No ill appearing HENMT Head: normal to inspection and normocephalic Resp Effort & Inspection: normal respiratory effort Auscultation: clear to auscultation bilaterally Cardio Rate: regular rate Rhythm: regular rhythm GI Inspection: normal to inspection and non-distended Skin General: no rashes or lesions noted Neuro General: patient alert, patient awake, patient oriented x3 and moves all extremities Cognition: normal cognition Speech: speech normal Psych Other: Flat affect Course Orders Ordered: ED Orders 09/20/22 01:00 EKG-12 Lead Stat 09/20/22 01:30 COVID19 -Nasal RAPID Stat 09/20/22 02:03 Complete Blood Count AUTO DIFF Stat Comprehensive Metabolic Panel Stat Ethanol (ETOH) Stat Lipase Stat Troponin & CK Cardiac Panel Stat 09/20/22 03:28 Urine Drug Screen, Rapid Stat Discontinued Medications Sodium Chloride (Normal Saline 0.9%) 1,000 mls @ 1,000 mls/hr IV BOLUS ONE Stop: 09/20/22 01:58 Last Infusion: 09/20/22 03:32 Dose: 0 mls/hr Documented By: Admin: 09/20/22 01:35 Dose: 1,000 mls/hr Documented By: KOFFI Vital Signs Vital signs: Vital Signs - 8 hr 09/20/22 00:36 09/20/22 00:51 09/20/22 00:51 Temperature 98.5 F Pulse Rate 86 87 Respiratory Rate 18 Blood Pressure 111/62 109/70 Pulse Oximetry 97 97 Oxygen Delivery Method Room Air 09/20/22 01:00 09/20/22 01:00 09/20/22 01:11 Temperature Pulse Rate 85 Respiratory Rate 14 Blood Pressure 111/70 111/73 Pulse Oximetry 98 Oxygen Delivery Method 09/20/22 01:11 09/20/22 01:12 09/20/22 01:12 Temperature Pulse Rate 84 84 Respiratory Rate 24 19 Blood Pressure 112/67 Pulse Oximetry 96 97 Oxygen Delivery Method 09/20/22 01:30 09/20/22 01:34 09/20/22 01:34 Temperature Pulse Rate 83 83 Respiratory Rate 21 17 Blood Pressure 105/56 L Pulse Oximetry 97 97 Oxygen Delivery Method 09/20/22 02:00 Temperature Pulse Rate 79 Respiratory Rate 14 Blood Pressure Pulse Oximetry 98 Oxygen Delivery Method Medical Decision Making Lab Data Lab results reviewed: Yes I reviewed the patient's lab results. 09/20/22 02:03 09/20/22 02:03 Labs: Lab Results 09/20/22 09/20/22 09/20/22 Range/Units 01:30 02:03 02:03 WBC 9.4 (4.5-11.0) X10^3/uL RBC 4.49 (4.0-5.2) X10^6/uL Hgb 13.9 (12.0-16.0) g/dL Hct 41.4 (36-46) % MCV 92.2 (80-100) fL MCH 30.9 (26-34) PG MCHC 33.5 (30-36) % RDW 14.1 (11.6-14.8) % Plt Count 245 (150-400) X10^3/uL Neut % (Auto) 54.8 (50-75) % Lymph % (Auto) 36.8 (25-40) % [place] % (Auto) 5.0 (3-14) % Eos % (Auto) 2.5 (2-4) % Baso % (Auto) 0.9 (0-2) % Neut # (Auto) 5100 (9566-6672) /uL Lymph # (Auto) 3500 (1549-7184) /uL [place] # (Auto) 500 (0-900) /uL Eos # (Auto) 200 (0-450) /uL Baso # (Auto) 100 (0-100) /uL Sodium 138 (137-145) mmol/L Potassium 3.6 (3.4-5.1) mmol/L Chloride 102 (98-107) mmol/L Carbon Dioxide 31 (22-32) mmol/L BUN 5 L (7-17) mg/dL Creatinine 0.81 (0.52-1.04) mg/dL Estimated GFR > 60 (>60) mL/min BUN/Creatinine Ratio 6.2 (6-22) Glucose 149 H (70-100) mg/dL Calcium 8.7 (8.4-10.2) mg/dL Total Bilirubin 0.5 (0.2-1.3) mg/dL AST 16 (14-36) IU/L ALT 14 (<35) IU/L Alkaline Phosphatase 81 (38-126) U/L Total Creatine Kinase < 20 L (30-135) U/L CK-MB (CK-2) TNP CK-MB (CK-2) Rel Index TNP Troponin I < 0.012 (0.01-0.034) ng/mL Total Protein 7.0 (6.3-8.2) g/dL Albumin 3.8 (3.5-5.0) g/dL Globulin 3.2 (1.7-4.1) g/dL Albumin/Globulin Ratio 1.2 (1.0-2.8) Lipase 61 (23-300) U/L U Opiates 300ng/mL cut (Negative) Ur Oxycodone Screen (Negative) Urine Methadone Screen (Negative) Ur Barbiturates Screen (Negative) U Tricyclic Antidepress (Negative) Ur Phencyclidine Scrn (Negative) Ur Amphetamines Screen (Negative) U Methamphetamines Scrn (Negative) Ur MDMA Scrn (Ecstasy) (Negative) U Benzodiazepines Scrn (Negative) Urine Cocaine Screen (Negative) U Marijuana (THC) Screen (Negative) Ethyl Alcohol < 10 ( - 10) mg/dL SARS-CoV-2 (PCR) Negative (Negative) 09/20/22 Range/Units 03:28 WBC (4.5-11.0) X10^3/uL RBC (4.0-5.2) X10^6/uL Hgb (12.0-16.0) g/dL Hct (36-46) % MCV (80-100) fL MCH (26-34) PG MCHC (30-36) % RDW (11.6-14.8) % Plt Count (150-400) X10^3/uL Neut % (Auto) (50-75) % Lymph % (Auto) (25-40) % [place] % (Auto) (3-14) % Eos % (Auto) (2-4) % Baso % (Auto) (0-2) % Neut # (Auto) (2176-3999) /uL Lymph # (Auto) (7121-1781) /uL [place] # (Auto) (0-900) /uL Eos # (Auto) (0-450) /uL Baso # (Auto) (0-100) /uL Sodium (137-145) mmol/L Potassium (3.4-5.1) mmol/L Chloride (98-107) mmol/L Carbon Dioxide (22-32) mmol/L BUN (7-17) mg/dL Creatinine (0.52-1.04) mg/dL Estimated GFR (>60) mL/min BUN/Creatinine Ratio (6-22) Glucose (70-100) mg/dL Calcium (8.4-10.2) mg/dL Total Bilirubin (0.2-1.3) mg/dL AST (14-36) IU/L ALT (<35) IU/L Alkaline Phosphatase (38-126) U/L Total Creatine Kinase (30-135) U/L CK-MB (CK-2) CK-MB (CK-2) Rel Index Troponin I (0.01-0.034) ng/mL Total Protein (6.3-8.2) g/dL Albumin (3.5-5.0) g/dL Globulin (1.7-4.1) g/dL Albumin/Globulin Ratio (1.0-2.8) Lipase (23-300) U/L U Opiates 300ng/mL cut Negative (Negative) Ur Oxycodone Screen Negative (Negative) Urine Methadone Screen Negative (Negative) Ur Barbiturates Screen Negative (Negative) U Tricyclic Antidepress Positive H (Negative) Ur Phencyclidine Scrn Negative (Negative) Ur Amphetamines Screen Negative (Negative) U Methamphetamines Scrn Negative (Negative) Ur MDMA Scrn (Ecstasy) Negative (Negative) U Benzodiazepines Scrn Negative (Negative) Urine Cocaine Screen Negative (Negative) U Marijuana (THC) Screen Positive H (Negative) Ethyl Alcohol ( - 10) mg/dL SARS-CoV-2 (PCR) (Negative) Point of Care Testing Glucose POC 144 Point of care testing: Point of Care Testing Glucose POC 144 ECG Data Attestation: I personally reviewed and interpreted this ECG as follows: Interpretation: Sinus rhythm Ventricular rate 83 Normal axis Normal QRS Normal QTC No ST T wave changes MDM Narrative Medical decision making narrative: Labs unremarkable. Vital signs unremarkable. She was able to ambulate to the bathroom. Has tolerating oral intake. Has not suicidal. Have a strong suspicion that she is having some issues with depression. She does have a therapist that she sees and also an appointment with her primary doctor in the next couple weeks. Low suspicion for CVA. Provided reassurance to the patient and her at bedside. Will discharge patient home with strict return precautions. They expressed understanding and agreement. Discharge Plan Departure Patient Disposition: Home Clinical Impression: Fatigue, Paresthesias Instructions: DI for Fatigue Activity Restrictions/Additional Instructions: Recommend that you continue to take all of your medications as directed. Also recommend that you increase your fluid intake and eat a balanced diet. Keep your scheduled follow-up appointment with your primary doctor. Return to the emergency department for new symptoms. Prescriptions: No Action atorvastatin 20 mg tablet 20 mg PO DAILY cetirizine 10 mg Tablet 10 mg PO DAILY clonazepam 1 mg tablet 2 mg PO QAM clonazepam 1 mg Tablet 1.5 mg PO BEDTIME estradiol 1 mg tablet 1 mg PO DAILY gabapentin 800 mg tablet 800 mg PO BID trazodone 150 mg tablet 150 mg PO BEDTIME metformin 1,000 mg Tablet 1,000 mg PO BIDWMEAL ondansetron 4 mg tablet,disintegrating 4 mg PO 4XD PRN (Reason: nausea/vomiting) Patient Comments: DISSOLVE 1 tablet ON TONGUE 3 TO 4 TIMES DAILY if needed FOR NAUSEA AND VOMITING prazosin 2 mg Capsule 2 mg PO BEDTIME spironolactone 50 mg tablet 50 mg PO QAM metoclopramide HCl 10 mg tablet 10 mg PO 4XD atomoxetine 40 mg capsule 40 mg PO QAM buprenorphine-naloxone 2-0.5 mg tablet, sublingual 4 tab SUBLINGUAL DAILY propranolol 80 mg Capsule,Extended Release 24hr 80 mg PO DAILY dexlansoprazole [Dexilant] 60 mg Capsule,Biphase Delayed Releas 60 mg PO DAILY Jardiance 10 mg Tablet 10 mg PO QAM Triumeq 600-50-300 mg tablet 1 tab PO DAILY Referrals: Nidhi Faustin DO [Primary Care Provider] - Stand Alone Forms: Patient Portal/API
[2022-09-20 02:12] LABS: Add Manual Diff / Slide Review NO; Basophils Absolute Auto 100 /uL (0-100); Basophils Percent Auto 0.9 % (0-2); Eosinophils Absolute Auto 200 /uL (0-450); Eosinophils Percent Auto 2.5 % (2-4); Hematocrit 41.4 % (36-46); Hemoglobin 13.9 g/dL (12.0-16.0); Lymphocytes Absolute Auto 3500 /uL (1100-4500); Lymphocytes Percent Auto 36.8 % (25-40); Mean Corpuscular HGB Conc 33.5 % (30-36); Mean Corpuscular Hemoglobin 30.9 PG (26-34); Mean Corpuscular Volume 92.2 fL (80-100); Monocytes Absolute Auto 500 /uL (0-900); Neutrophils Absolute Auto 5100 /uL (1500-7000); Neutrophils Percent Auto 54.8 % (50-75); Platelet Count 245 X10^3/uL (150-400); Red Blood Cell Count 4.49 X10^6/uL (4.0-5.2); Red Cell Distribution Width 14.1 % (11.6-14.8); White Blood Cell Count 9.4 X10^3/uL (4.5-11.0)
[2022-09-20 02:23] LABS: Alanine Aminotransferase 14 IU/L (<35); Albumin 3.8 g/dL (3.5-5.0); Albumin Globulin Ratio 1.2 (1.0-2.8); Alkaline Phosphatase 81 U/L (38-126); Aspartate Aminotransferase 16 IU/L (14-36); BUN Creatinine Ratio 6.2 (6-22); Bilirubin Total 0.5 mg/dL (0.2-1.3); Blood Urea Nitrogen 5 mg/dL (7-17); Calcium 8.7 mg/dL (8.4-10.2); Carbon Dioxide 31 mmol/L (22-32); Chloride 102 mmol/L (98-107); Creatine Kinase < 20 U/L (30-135); Estimated Glomerular Filt Rate > 60 mL/min (>60); Ethanol (ETOH) < 10 mg/dL; Globulin 3.2 g/dL (1.7-4.1); Glucose 149 mg/dL (70-100); HEMOLYSIS < 15 (0-50); Lipase 61 U/L (23-300); Potassium 3.6 mmol/L (3.4-5.1); Sodium 138 mmol/L (137-145)
[2022-09-20 02:34] LABS: Troponin I < 0.012 ng/mL (0.01-0.034)
[2022-09-20 03:53] LABS: UR Morphine/Opiate cutoff 300 Negative (Negative); Ur Creatinine Normal (Normal); Ur Specific Gravity Normal (Normal); Urine Amphetamines Negative (Negative); Urine Barbiturates Negative (Negative); Urine Cocaine Negative (Negative); Urine MDMA Negative (Negative); Urine Methamphetamines Negative (Negative); Urine Phencyclidine Negative (Negative); Urine Tetrahydrocannabinol Positive (Negative); Urine pH Normal (Normal)
[2022-09-20 03:54] LABS: Urine Benzodiazepines Negative (Negative); Urine Methadone Negative (Negative); Urine Oxycodone Negative (Negative); Urine Tricyclic Antidepressant Positive (Negative)
== END 2022-09-20 04:23 | disposition home or self-care (01) ==
PROVIDERS: Emergency Provider Emergency Medicine; PCP Family Medicine
DX: R53.83 Other fatigue (principal); R20.2 Paresthesia of skin; Z20.822 Contact with and (suspected) exposure to COVID-19
CPT/HCPCS: 36415; 80053; 80305; 80320; 82550; 82962; 83690; 84484; 85025; 87635; 93005; 93010; 99283; 99284; C9803

== ENCOUNTER → 2022-09-23 13:13 | Outpatient (CLI) | payer MEDICARE, OTHER, SELFPAY ==
[2022-09-14 16:30] VITALS: BMI 32.2
--- NOTE | 2022-09-23 13:16 | DI.RAD.S_ITS ---
PROCEDURE: XR KUB INDICATIONS: Follow-up lithotripsy TECHNIQUE: One view of the abdomen acquired. COMPARISON: [facility], CT, CT ABDOMEN PELVIS W CON, 08/06/2022, 22:31. [facility], CT, CT ABDOMEN PELVIS WITH CONTRAST, 09/17/2022, 15:30. [facility], CR, XR KUB, 08/13/2022, 13:59. FINDINGS: Surgical changes and devices: Left double-J ureteral stent projects in the expected location. L5-S1 pedicle screw fixation. Cholecystectomy clips. Bowel: Bowel gas pattern is normal. Soft tissues: Small phleboliths in the pelvis. No suspicious abdominal calcifications. Visualized solid organ contours appear normal in size. Bones: No suspicious bony lesions. IMPRESSION: Stable left double-J ureteral stent. Dictated by: Harris Aguayo M.D. on 09/23/2022 at 16:43 Approved by: Harris Aguayo M.D. on 09/23/2022 at 16:48
== END ==
PROVIDERS: PCP Family Medicine; Referring Provider Urology; Visit Provider Urology
DX: N20.0 Calculus of kidney (principal); Z96.0 Presence of urogenital implants
CPT/HCPCS: 74018

== ENCOUNTER → 2022-09-24 16:07 | Outpatient (CLI) | payer MEDICARE, OTHER, SELFPAY ==
[2022-09-14 16:30] VITALS: BMI 32.2
== END ==
PROVIDERS: PCP Family Medicine; Visit Provider Urology
DX: N20.0 Calculus of kidney (principal); Z96.0 Presence of urogenital implants
CPT/HCPCS: 81002; 87077; 87086; 87185; 87186

== ENCOUNTER → 2022-10-02 11:42 | Outpatient (CLI) | payer MEDICARE, OTHER, SELFPAY ==
[2022-09-14 16:30] VITALS: BMI 32.2
--- NOTE | 2022-10-02 11:46 | DI.RAD.S_ITS ---
PROCEDURE: XR KUB INDICATIONS: retained ureteral stent TECHNIQUE: One view of the abdomen acquired. COMPARISON: [facility], , XR KUB, 09/23/2022, 13:19. FINDINGS: Surgical changes and devices: Left-sided ureteral stent is seen. Postfusion changes are seen in lower lumbar spine at L5-S1 level. Bowel: Bowel gas pattern is normal. Soft tissues: No suspicious abdominal calcifications. Small calcifications are seen in lower pelvis likely represent phleboliths. Visualized solid organ contours appear normal in size. Bones: No suspicious bony lesions. IMPRESSION: Left-sided ureteral stent in place. No definite renal stone or ureteral stone is seen. Likely phleboliths seen in lower pelvis. Dictated by: Gilbert Reed M.D. on 10/02/2022 at 14:36 Approved by: Gilbert Reed M.D. on 10/02/2022 at 14:41
== END ==
PROVIDERS: PCP Family Medicine; Referring Provider Urology; Visit Provider Urology
DX: N20.0 Calculus of kidney (principal); Z96.0 Presence of urogenital implants; Z98.1 Arthrodesis status
CPT/HCPCS: 52310; 74018; 81002; 87086

== ENCOUNTER → 2022-10-02 13:13 | Outpatient (CLI) | payer MEDICARE, OTHER, SELFPAY ==
[2022-09-14 16:30] VITALS: BMI 32.2
== END ==
PROVIDERS: PCP Family Medicine; Visit Provider Urology
DX: N20.0 Calculus of kidney (principal); Z96.0 Presence of urogenital implants
CPT/HCPCS: 87086

== ENCOUNTER 2022-10-07 21:31 | Emergency (ER) | payer MEDICARE, OTHER, SELFPAY ==
[2022-09-14 16:30] VITALS: BMI 32.2
[2022-10-07 21:37] VITALS: BP 119/71; PULSE 79; RESP 10; TEMP 36.8; O2SAT 96; BMI 25.4
[2022-10-07 21:50] LABS: Add Manual Diff / Slide Review NO; Basophils Absolute Auto 200 /uL (0-100); Basophils Percent Auto 1.2 % (0-2); Eosinophils Absolute Auto 0 /uL (0-450); Eosinophils Percent Auto 0.3 % (2-4); Hematocrit 49.8 % (36-46); Hemoglobin 16.6 g/dL (12.0-16.0); Lymphocytes Absolute Auto 3000 /uL (1100-4500); Mean Corpuscular HGB Conc 33.2 % (30-36); Mean Corpuscular Hemoglobin 30.3 PG (26-34); Mean Corpuscular Volume 91.4 fL (80-100); Monocytes Absolute Auto 400 /uL (0-900); Monocytes Percent Auto 2.9 % (3-14); Neutrophils Absolute Auto 10800 /uL (1500-7000); Neutrophils Percent Auto 74.6 % (50-75); Platelet Count 398 X10^3/uL (150-400); Red Blood Cell Count 5.45 X10^6/uL (4.0-5.2); Red Cell Distribution Width 14.4 % (11.6-14.8); White Blood Cell Count 14.5 X10^3/uL (4.5-11.0)
[2022-10-07 21:53] LABS: INR 1.1 (0.9-1.3); Prothrombin Time 12.3 SECONDS (10.1-12.7)
[2022-10-07] MEDS: SODIUM CHLORIDE 0.9% 1,000 ML 1000 ML IV (21:55)
[2022-10-07 21:56] LABS: PTT Partial Thromboplastin Tim 29 SECONDS (26-36)
[2022-10-07 21:59] LABS: Acetaminophen 39 ug/mL (10-30); Alanine Aminotransferase 23 IU/L (<35); Albumin 4.7 g/dL (3.5-5.0); Alkaline Phosphatase 136 U/L (38-126); Aspartate Aminotransferase 26 IU/L (14-36); BUN Creatinine Ratio 14.5 (6-22); Bilirubin Total 0.6 mg/dL (0.2-1.3); Blood Urea Nitrogen 12 mg/dL (7-17); Carbon Dioxide 27 mmol/L (22-32); Chloride 104 mmol/L (98-107); Estimated Glomerular Filt Rate > 60 mL/min (>60); Ethanol (ETOH) < 10 mg/dL; Globulin 4.6 g/dL (1.7-4.1); Glucose 197 mg/dL (70-100); HEMOLYSIS < 15 (0-50); Lipase 225 U/L (23-300); Magnesium 2.3 mg/dL (1.6-2.3); Potassium 4.5 mmol/L (3.4-5.1); Pregnancy Test Serum,Qual Negative (Negative); Salicylate < 1.0 mg/dL (<20); Sodium 143 mmol/L (137-145); Total Protein 9.3 g/dL (6.3-8.2)
[2022-10-07 22:00] VITALS: BP 119/72; PULSE 82; RESP 12; O2SAT 96
--- NOTE | 2022-10-07 22:04 | ED.GENADULT ---
HPI - General Adult General Chief complaint: Toxicology Problem Stated complaint: Overdose Time Seen by Provider: 10/07/22 21:32 Source: patient and EMS Mode of arrival: EMS History of Present Illness HPI narrative: Patient is a 51-year-old female who is brought in by EMS for evaluation of was reported as an intentional Tylenol and ibuprofen overdose. At approximately 1900 hours the patient took a reported unknown amount of Tylenol and ibuprofen. Apparently this was not an attempt to hurt herself. Upon arrival the patient was not cooperative and would not answer any of my questions. It was the patient's who contacted EMS. The HPI was reported by EMS in the patient's . Patient did make comments to both EMS and nursing staff that she just wanted to . Less than 1 month ago she was seen here in our department for a Flexeril overdose. She was subsequently admitted to the hospital and then discharged home. I have seen her here in the emergency department since then for other issues to include fatigue. At that time she definitely was expressing depressive like symptoms however was not suicidal. Related Data Home Medications Medication Instructions Recorded Confirmed abacavir 600 mg-dolutegravir 50 1 tab PO DAILY 09/14/22 10/02/22 mg-lamivudine 300 mg tablet (Triumeq) atomoxetine 40 mg capsule 40 mg PO QAM 09/14/22 10/02/22 atorvastatin 20 mg tablet 20 mg PO DAILY 09/14/22 10/02/22 buprenorphine 2 mg-naloxone 0.5 mg 4 tab sublingual DAILY 09/14/22 10/02/22 sublingual tablet cetirizine 10 mg tablet 10 mg PO DAILY 09/14/22 10/02/22 clonazepam 1 mg tablet 1.5 mg PO BEDTIME 09/14/22 10/02/22 clonazepam 1 mg tablet 2 mg PO QAM 09/14/22 10/02/22 dexlansoprazole 60 mg 60 mg PO DAILY 09/14/22 10/02/22 capsule,biphase delayed release (Dexilant) empagliflozin 10 mg tablet 10 mg PO QAM 09/14/22 10/02/22 (Jardiance) estradiol 1 mg tablet 1 mg PO DAILY 09/14/22 10/02/22 gabapentin 800 mg tablet 800 mg PO BID 09/14/22 10/02/22 metformin 1,000 mg tablet 1,000 mg PO BIDWMEAL 09/14/22 10/02/22 metoclopramide HCl 10 mg tablet 10 mg PO 4XD 09/14/22 10/02/22 ondansetron 4 mg disintegrating 4 mg PO 4XD PRN nausea/vomiting 09/14/22 10/02/22 tablet prazosin 2 mg capsule 2 mg PO BEDTIME 09/14/22 10/02/22 propranolol 80 mg capsule,extended 80 mg PO DAILY 09/14/22 10/02/22 release 24 hr spironolactone 50 mg tablet 50 mg PO QAM 09/14/22 10/02/22 trazodone 150 mg tablet 150 mg PO BEDTIME 09/14/22 10/02/22 Previous Rx's Medication Instructions Recorded nitrofurantoin 100 mg PO BID #20 caps 09/28/22 monohydrate/macrocrystals 100 mg capsule phenazopyridine 200 mg tablet 200 mg PO TID PRN pain #20 tabs 09/28/22 (Pyridium) Allergies Allergy/AdvReac Type Severity Reaction Status Date / Time levofloxacin [LEVOFLOXACIN] Allergy Severe hives Verified 10/07/22 22:03 Sulfa (Sulfonamide Allergy Severe rash Verified 10/07/22 22:03 Antibiotics) [SULFA (SULFONAMIDE ANTIBIOTICS)] amoxicillin [From AUGMENTIN] Allergy Mild rash Verified 10/07/22 22:03 ciprofloxacin [From CIPRO] Allergy Mild rash Verified 10/07/22 22:03 clarithromycin [From BIAXIN] Allergy Mild rash Verified 10/07/22 22:03 clavulanic acid Allergy Mild rash Verified 10/07/22 22:03 [From AUGMENTIN] morphine [MORPHINE] AdvReac Mild n/v Verified 10/07/22 22:03 pregabalin [PREGABALIN] AdvReac Mild lost voice Verified 10/07/22 22:03 Review of Systems Review of Systems Narrative: Patient was unwilling to provide any review of system Psychiatric Psychiatric: Reports system reviewed and no additional complaints, except as documented Patient History Medical History Anxiety Arthritis Bipolar disorder Depression Diabetes mellitus Fibroids GERD (gastroesophageal reflux disease) History of gastrointestinal symptoms History of liver disease HIV (human immunodeficiency virus infection) Hx of migraine headaches Hx of osteoarthritis Hypertension Kidney stone on left side PTSD (post-traumatic stress disorder) Retained ureteral stent Surgical History History of cystoscopy (2013) History of stress incontinence procedure using tension free vaginal tape (2013) S/P functional endoscopic sinus surgery (2002) Status post arthroscopy (2003) Status post cholecystectomy (2011) Status post laparoscopic supracervical hysterectomy (2011) Family History Father Diabetes mellitus Hypertension CVA (cerebral vascular accident) Mother Diabetes mellitus Hypertension CVA (cerebral vascular accident) Hearing impairment Brother Hypertension Social History marital status: number of children: 3 household members: spouse occupational status: disabled Smoking Status: Current every day smoker alcohol intake: never caffeine: Yes Type(s) of exercise: none Smoking Status: Current every day smoker tobacco type: cigarettes alcohol intake frequency: holidays/special occasions only Substance Use Type: marijuana Exam Initial Vital Signs Initial Vital Signs: Vital Signs Temperature 98.3 F 10/07/22 21:37 Pulse Rate 79 10/07/22 21:37 Respiratory Rate 10 L 10/07/22 21:37 Blood Pressure 119/71 10/07/22 21:37 Pulse Oximetry 96 10/07/22 21:37 Oxygen Delivery Method Room Air 10/07/22 21:37 Const General: No cooperative, No in distress and No ill appearing HENPR Head: normal to inspection and normocephalic Resp Effort & Inspection: normal respiratory effort Auscultation: clear to auscultation bilaterally Cardio Rate: regular rate Rhythm: regular rhythm GI Inspection: normal to inspection and non-distended Skin General: no rashes or lesions noted Neuro Other: Patient would not initially speak. Would follow commands. Extrem Other: No gross deformities Psych Appearance: grossly normal Speech and Movement: mute Affect: indifferent Thought Content: suicidality Course Orders Ordered: ED Orders 10/07/22 21:30 Acetaminophen Stat Complete Blood Count AUTO DIFF Stat Comprehensive Metabolic Panel Stat Ethanol (ETOH) Stat Lipase Stat Magnesium Stat PTT Partial Thromboplastin Pedro Stat Test Serum,Qual Stat Prothrombin Time INR Stat Salicylate Stat Thyroid Stimulating Hormone Stat 10/07/22 21:35 Consult to Broodmare Foreman Stat EKG-12 Lead Stat 10/07/22 21:46 Consult to COORDINATE MEASURING MACHINE TECHNICIAN - Broodmare Foreman Stat 10/07/22 21:49 COVID19 -Nasal RAPID Stat 10/07/22 23:26 Acetaminophen Stat 10/08/22 01:24 CMP [Comprehensive Metabolic Panel] Stat 10/08/22 05:30 CMP [Comprehensive Metabolic Panel] Stat Discontinued Medications Diphenhydramine HCl (Diphenhydramine 50 Mg/Ml Vial) 25 mg IM NOW ONE Stop: 10/07/22 22:58 Last Admin: 10/07/22 23:02 Dose: 25 mg Documented By: Haloperidol (Haloperidol 5 Mg/Ml Vial) 5 mg IM NOW ONE Stop: 10/07/22 22:58 Last Admin: 10/07/22 23:02 Dose: 5 mg Documented By: Sodium Chloride (Normal Saline 0.9%) 1,000 mls @ 1,000 mls/hr IV BOLUS ONE Stop: 10/07/22 22:32 Last Infusion: 10/07/22 22:52 Dose: 0 mls/hr Documented By: Admin: 10/07/22 21:55 Dose: 1,000 mls/hr Documented By: Lorazepam (Lorazepam 2 Mg/Ml Inj) 2 mg IM NOW ONE Stop: 10/07/22 22:46 Last Admin: 10/07/22 22:51 Dose: 2 mg Documented By: ST Lorazepam (Lorazepam 2 Mg/Ml Inj) 2 mg IM NOW ONE Stop: 10/07/22 23:18 Last Admin: 10/07/22 23:23 Dose: 2 mg Documented By: BRIAN Vital Signs Vital signs: Vital Signs - 8 hr 10/07/22 21:37 10/07/22 22:00 10/07/22 22:00 Temperature 98.3 F Pulse Rate 79 82 Respiratory Rate 10 L 12 Blood Pressure 119/71 119/72 Pulse Oximetry 96 96 Oxygen Delivery Method Room Air 10/08/22 01:25 10/08/22 04:05 Temperature Pulse Rate 88 83 Respiratory Rate 16 16 Blood Pressure 102/51 L 104/58 L Pulse Oximetry 95 98 Oxygen Delivery Method Room Air Room Air Medical Decision Making Lab Data 10/07/22 21:30 10/08/22 01:24 Labs: Lab Results 10/07/22 10/07/22 10/07/22 Range/Units 21:30 21:30 21:30 WBC 14.5 H (4.5-11.0) X10^3/uL RBC 5.45 H (4.0-5.2) X10^6/uL Hgb 16.6 H (12.0-16.0) g/dL Hct 49.8 H (36-46) % MCV 91.4 (80-100) fL MCH 30.3 (26-34) PG MCHC 33.2 (30-36) % RDW 14.4 (11.6-14.8) % Plt Count 398 (150-400) X10^3/uL Neut % (Auto) 74.6 (50-75) % Lymph % (Auto) 21.0 L (25-40) % [place] % (Auto) 2.9 L (3-14) % Eos % (Auto) 0.3 L (2-4) % Baso % (Auto) 1.2 (0-2) % Neut # (Auto) 58498 H (9173-4414) /uL Lymph # (Auto) 3000 (9607-9541) /uL [place] # (Auto) 400 (0-900) /uL Eos # (Auto) 0 (0-450) /uL Baso # (Auto) 200 H (0-100) /uL PT 12.3 (10.1-12.7) SECONDS INR 1.1 (0.9-1.3) APTT 29 (26-36) SECONDS Sodium 143 (137-145) mmol/L Potassium 4.5 (3.4-5.1) mmol/L Chloride 104 (98-107) mmol/L Carbon Dioxide 27 (22-32) mmol/L BUN 12 (7-17) mg/dL Creatinine 0.83 (0.52-1.04) mg/dL Estimated GFR > 60 (>60) mL/min BUN/Creatinine Ratio 14.5 (6-22) Glucose 197 H (70-100) mg/dL Calcium 10.0 (8.4-10.2) mg/dL Magnesium 2.3 (1.6-2.3) mg/dL Total Bilirubin 0.6 (0.2-1.3) mg/dL AST 26 (14-36) IU/L ALT 23 (<35) IU/L Alkaline Phosphatase 136 H (38-126) U/L Total Protein 9.3 H (6.3-8.2) g/dL Albumin 4.7 (3.5-5.0) g/dL Globulin 4.6 H (1.7-4.1) g/dL Albumin/Globulin Ratio 1.0 (1.0-2.8) Lipase 225 (23-300) U/L TSH (0.47-4.68) uIU/mL Serum , Qual (Negative) Salicylates < 1.0 (<20) mg/dL Acetaminophen 39 H (10-30) ug/mL Ethyl Alcohol < 10 ( - 10) mg/dL SARS-CoV-2 (PCR) (Negative) 10/07/22 10/07/22 10/07/22 Range/Units 21:30 21:30 21:49 WBC (4.5-11.0) X10^3/uL RBC (4.0-5.2) X10^6/uL Hgb (12.0-16.0) g/dL Hct (36-46) % MCV (80-100) fL MCH (26-34) PG MCHC (30-36) % RDW (11.6-14.8) % Plt Count (150-400) X10^3/uL Neut % (Auto) (50-75) % Lymph % (Auto) (25-40) % [place] % (Auto) (3-14) % Eos % (Auto) (2-4) % Baso % (Auto) (0-2) % Neut # (Auto) (8281-1467) /uL Lymph # (Auto) (3392-3920) /uL [place] # (Auto) (0-900) /uL Eos # (Auto) (0-450) /uL Baso # (Auto) (0-100) /uL PT (10.1-12.7) SECONDS INR (0.9-1.3) APTT (26-36) SECONDS Sodium (137-145) mmol/L Potassium (3.4-5.1) mmol/L Chloride (98-107) mmol/L Carbon Dioxide (22-32) mmol/L BUN (7-17) mg/dL Creatinine (0.52-1.04) mg/dL Estimated GFR (>60) mL/min BUN/Creatinine Ratio (6-22) Glucose (70-100) mg/dL Calcium (8.4-10.2) mg/dL Magnesium (1.6-2.3) mg/dL Total Bilirubin (0.2-1.3) mg/dL AST (14-36) IU/L ALT (<35) IU/L Alkaline Phosphatase (38-126) U/L Total Protein (6.3-8.2) g/dL Albumin (3.5-5.0) g/dL Globulin (1.7-4.1) g/dL Albumin/Globulin Ratio (1.0-2.8) Lipase (23-300) U/L TSH 0.477 (0.47-4.68) uIU/mL Serum , Qual Negative (Negative) Salicylates (<20) mg/dL Acetaminophen (10-30) ug/mL Ethyl Alcohol ( - 10) mg/dL SARS-CoV-2 (PCR) Negative (Negative) 10/07/22 10/08/22 Range/Units 23:26 01:24 WBC (4.5-11.0) X10^3/uL RBC (4.0-5.2) X10^6/uL Hgb (12.0-16.0) g/dL Hct (36-46) % MCV (80-100) fL MCH (26-34) PG MCHC (30-36) % RDW (11.6-14.8) % Plt Count (150-400) X10^3/uL Neut % (Auto) (50-75) % Lymph % (Auto) (25-40) % [place] % (Auto) (3-14) % Eos % (Auto) (2-4) % Baso % (Auto) (0-2) % Neut # (Auto) (5718-4262) /uL Lymph # (Auto) (8818-8516) /uL [place] # (Auto) (0-900) /uL Eos # (Auto) (0-450) /uL Baso # (Auto) (0-100) /uL PT (10.1-12.7) SECONDS INR (0.9-1.3) APTT (26-36) SECONDS Sodium 138 (137-145) mmol/L Potassium 4.2 (3.4-5.1) mmol/L Chloride 104 (98-107) mmol/L Carbon Dioxide 26 (22-32) mmol/L BUN 15 (7-17) mg/dL Creatinine 1.03 (0.52-1.04) mg/dL Estimated GFR > 60 (>60) mL/min BUN/Creatinine Ratio 14.6 (6-22) Glucose 167 H (70-100) mg/dL Calcium 8.9 (8.4-10.2) mg/dL Magnesium (1.6-2.3) mg/dL Total Bilirubin 0.4 (0.2-1.3) mg/dL AST 30 (14-36) IU/L ALT 18 (<35) IU/L Alkaline Phosphatase 90 (38-126) U/L Total Protein 7.6 (6.3-8.2) g/dL Albumin 3.8 (3.5-5.0) g/dL Globulin 3.8 (1.7-4.1) g/dL Albumin/Globulin Ratio 1.0 (1.0-2.8) Lipase (23-300) U/L TSH (0.47-4.68) uIU/mL Serum , Qual (Negative) Salicylates (<20) mg/dL Acetaminophen 17 (10-30) ug/mL Ethyl Alcohol ( - 10) mg/dL SARS-CoV-2 (PCR) (Negative) ECG Data Attestation: I personally reviewed and interpreted this ECG as follows: Interpretation: Sinus rhythm Ventricular rate 81 Normal QRS QTC [address] T wave changes MDM Narrative Medical decision making narrative: Initial Tylenol level was 39 however this was less than 4 hours after reported ingestion. Her 4 hour Tylenol level was 17. Alcohol level was negative. Chemistries are unremarkable. Patient is medically cleared. She did have episodes here in the ER where she became very violent and agitated. She was stating that she just wanted to go home. She was upset that her left. She was yelling and screaming at staff. She was cursing at staff. She was given several doses of Ativan in 2 mg aliquots and also was given Haldol and Benadryl. Afterwards the patient was much more calm. She was sleeping in the room. She did allow us to draw repeat lab work. Given her history to include this being the 2nd reported overdose in an attempt to kill herself and also the depressive symptoms during her last visit here in the ER I do feel that the patient does need to be evaluated by DCR for potential involuntary detainment. The patient does not want to be admitted to the hospital. We will continue to observe until disposition can be met. Patient was evaluated by DCR. Please see his note for complete evaluation. He did evaluate the patient over video conference. DCR also talked with the patient's . The decision was made after these discussions to release the patient under the care of her . DCR states that he talked with the patient's who is agreeable to take the patient. He is agreeable to take responsibility for the patient. He states he is already taken all of her medications and hit them from her. DCR state that because there is a less restrictive option which is being discharged to family who is willing to take care of her that we will hold on any detain med for now. The patient has been ambulatory here in the ER. Is also tolerated oral intake. Will discharge patient under care of . Discharge Plan Departure Patient Disposition: Home Clinical Impression: Intentional overdose Instructions: Depression Activity Restrictions/Additional Instructions: You are being discharged under the care of your who has agreed to take responsibility for you. There is important that you take all of your medications as directed. The emergency department is available 24 hours a day 7 days a week and I recommend that if you ever have thoughts of hurting yourself again that you return to the emergency department for further evaluation. Prescriptions: No Action nitrofurantoin monohyd/m-cryst 100 mg capsule 100 mg PO BID Qty: 20 0RF Rx Instructions: must administer with a meal/food phenazopyridine [Pyridium] 200 mg tablet 200 mg PO TID PRN (Reason: pain) Qty: 20 0RF atorvastatin 20 mg tablet 20 mg PO DAILY cetirizine 10 mg Tablet 10 mg PO DAILY clonazepam 1 mg tablet 2 mg PO QAM clonazepam 1 mg Tablet 1.5 mg PO BEDTIME estradiol 1 mg tablet 1 mg PO DAILY gabapentin 800 mg tablet 800 mg PO BID trazodone 150 mg tablet 150 mg PO BEDTIME metformin 1,000 mg Tablet 1,000 mg PO BIDWMEAL ondansetron 4 mg tablet,disintegrating 4 mg PO 4XD PRN (Reason: nausea/vomiting) Patient Comments: DISSOLVE 1 tablet ON TONGUE 3 TO 4 TIMES DAILY if needed FOR NAUSEA AND VOMITING prazosin 2 mg Capsule 2 mg PO BEDTIME spironolactone 50 mg tablet 50 mg PO QAM metoclopramide HCl 10 mg tablet 10 mg PO 4XD atomoxetine 40 mg capsule 40 mg PO QAM buprenorphine-naloxone 2-0.5 mg tablet, sublingual 4 tab SUBLINGUAL DAILY propranolol 80 mg Capsule,Extended Release 24hr 80 mg PO DAILY dexlansoprazole [Dexilant] 60 mg Capsule,Biphase Delayed Releas 60 mg PO DAILY Jardiance 10 mg Tablet 10 mg PO QAM Triumeq 600-50-300 mg tablet 1 tab PO DAILY Referrals: Nidhi Faustin DO [Primary Care Provider] - Stand Alone Forms: Patient Portal/API
[2022-10-07 22:09] LABS: COVID19 -Nasal RAPID Negative (Negative)
--- NOTE | 2022-10-07 22:21 | PC.NURSE ---
Spoke with [place] pharmacist at Poison Control. . Recommends supportive care at this time and call with new changes in mental status. Recommends repeat tylenol level @2300 and repeat CMP @ 0130. made aware.
[2022-10-07 22:31] LABS: Thyroid Stimulating Hormone 0.477 uIU/mL (0.47-4.68)
[2022-10-07] MEDS: LORazepam 2 MG/ML INJ IM ×2 (22:51→23:23)
--- NOTE | 2022-10-07 22:53 | PC.NURSE ---
Pt removed monitoring equipment and refused staff requests and attempts to put it back on. Pt began yelling that she wants to go home. Began sobbing and stated that she does not want to live anymore. Pt's shouting and sobbing persisted and she insisted that she be allowed to go. Stated that if her left, she would not cooperate with any care. left. Pt asserted she would not cooperate and shouted more loudly. Pt was given Ativan IM, and continued loudly yelling and cursing at staff for an extended period of time and yelling such statements as quit staring at me, you ugly fucking bitch to the 1:1 observer. Haldol and Benadryl given IM. Pt continues to yell. Lights dimmed to reduce stimuli. Will continue to monitor.
[2022-10-07] MEDS: HALOPERIDOL 5 MG/ML VIAL IM (23:02)
[2022-10-07] MEDS: diphenhydrAMINE 50 MG/ML VIAL 25 MG IM (23:02)
--- NOTE | 2022-10-07 23:28 | PC.NURSE ---
Addendum entered by Anita Corrigan CNA 10/08/22 00:02: Pt started yelling stop laughing and smiling at me. She became more and more agitated while yelling swear words. pt began to rip off her leads and then proceeded to throw her pillow at the wall closest to me. Original Note: Pt preoccupied with 1:1 sitter. Pt got up out of bed, charged the door and continued to yell obscenities. at the bedside. Ativan 2mg IM given per JUN. Pt agreeable to lab draw. However, continues to be verbally aggressive. Pt also provided with water and then proceeded to throw water cup at this RN.
[2022-10-07 23:42] LABS: Acetaminophen 17 ug/mL (10-30)
--- NOTE | 2022-10-08 00:03 | PC.NURSE ---
Poison control contacted for repeat tylenol level of 17. No further recommendations at this time. Continue to repeat CMP level at 0130.
--- NOTE | 2022-10-08 00:09 | PC.NURSE ---
Spoke with pt's , Nathan, over the phone. Provided update on patient status. Pt lying on stretcher at this time. Occasionally crying/moaning and groaning. Seen moving extremities without difficulty. 1:[address]
--- NOTE | 2022-10-08 00:15 | PC.NURSE ---
pt provided with additional warm blankets. Pt also updated on repeat tylenol level and updated on repeat CMP draw at 0130. Pt informed of present time. Pt continues to refuse vital sign monitoring equipment at this time.
--- NOTE | 2022-10-08 00:35 | PC.NURSE ---
Pt appears to be sleeping at this time. Eyes closed. Chest rising and falling appropriately. 1:[address]
[2022-10-08 01:25] VITALS: BP 102/51; PULSE 88; RESP 16; O2SAT 95
--- NOTE | 2022-10-08 01:26 | PC.NURSE ---
CMP redrawn by Ron from lab. Vital signs taken. Pt declined any need for oral refreshments at this time. Pt has been updated on plan of care. Awaiting pt to become medically cleared and then expect DCR referral. Pt calm and cooperative at this time. Appropriately saying, Thank you. Denies any needs for more warm blankets. Pt remains 1:1, sitter in place.
[2022-10-08 01:44] LABS: Alanine Aminotransferase 18 IU/L (<35); Albumin 3.8 g/dL (3.5-5.0); Alkaline Phosphatase 90 U/L (38-126); Aspartate Aminotransferase 30 IU/L (14-36); BUN Creatinine Ratio 14.6 (6-22); Bilirubin Total 0.4 mg/dL (0.2-1.3); Blood Urea Nitrogen 15 mg/dL (7-17); Calcium 8.9 mg/dL (8.4-10.2); Carbon Dioxide 26 mmol/L (22-32); Chloride 104 mmol/L (98-107); Estimated Glomerular Filt Rate > 60 mL/min (>60); Globulin 3.8 g/dL (1.7-4.1); Glucose 167 mg/dL (70-100); HEMOLYSIS < 15 (0-50); Potassium 4.2 mmol/L (3.4-5.1); Sodium 138 mmol/L (137-145); Total Protein 7.6 g/dL (6.3-8.2)
--- NOTE | 2022-10-08 01:49 | PC.NURSE ---
Pt's , Nathan, called. This RN gave an update. Awaiting repeat CMP and planned DCR dispatch pending medical clearance from poison control.
--- NOTE | 2022-10-08 02:03 | PC.NURSE ---
Poison control contacted for repeat CMP. Recommends repeat CMP @ 9439. Dr. Sheets made aware. Pt medically cleared by Dr. Sheets at 0150. DCR contacted. Awaiting DCR return call. DCR forms faxed by [employer] architect.
--- NOTE | 2022-10-08 03:07 | PC.NURSE ---
Pt lying on gurney,Eyes closed, chest rising and falling
--- NOTE | 2022-10-08 03:34 | PC.NURSE ---
Pt speaking with HILDA Garcia, on ipad with 1:[address] for safety.
--- NOTE | 2022-10-08 03:41 | PC.NURSE ---
Attempted to call pt's , Nathan, at [phone], per Nathan's request from speaking with RN earlier. No answer x2. Also attempted Nathan's listed phone number in chart, out of service at this time.
--- NOTE | 2022-10-08 03:46 | PC.NURSE ---
Attempted to call Nathan again. No answer. Voicemail left to return call to ED. Pt provided with water and jair jessee. Also, attempted at [facility] desk by PCT.
[2022-10-08 04:05] VITALS: BP 104/58; PULSE 83; RESP 16; O2SAT 98
--- NOTE | 2022-10-08 04:05 | PC.NURSE ---
Nathan, , was able to be reached by HILDA Garcia. Per HILDA, pt will be released to with safety plan at this time. Provider made aware and agreeable with plan at this time for discharge. This RN informed pt of plan, pt reports she feels too sleepy at this time. Pt provided with call light, pt aware to call for staff when she feels ready for an ambulation trial. Pt denies any other needs. Provider made aware.
--- NOTE | 2022-10-08 04:25 | PC.NURSE ---
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 Pt reports she normally takes tylenol and ibuprofen for pain. Provider made aware and unable to prescribe any medication to patient at this time due to recent overdose. Pt made aware and stated she will ambulate to the bathroom and would like to be discharged to be comfortable in own bed. Pt able to ambulate to the bathroom with steady gait without complications. Pt's , Nathan, contacted and will be able to worm picker patient in about 20 minutes. Pt made aware. Pt changed into her own clothing. Provided with new warm blankets. Remains 1:1 sitter for safety until relinquished into custody.
== END 2022-10-08 04:39 | disposition home or self-care (01) ==
PROVIDERS: Emergency Provider Emergency Medicine; PCP Family Medicine
DX: T39.1X2A Poisoning by 4-Aminophenol derivatives, intentional self-harm, initial encounter (principal); T39.312A Poisoning by propionic acid derivatives, intentional self-harm, initial encounter; Z79.899 Other long term (current) drug therapy; Z20.822 Contact with and (suspected) exposure to COVID-19
CPT/HCPCS: 36415; 80053; 80320; 80329; 83690; 83735; 84443; 84703; 85025; 85610; 85730; 87635; 93005; 96360; 96372; 99285; C9803; G0480; J1200; J1630; J2060

== ENCOUNTER 2023-01-28 09:28 | Emergency (ER) | payer MEDICARE, OTHER, SELFPAY ==
[2022-09-14 16:30] VITALS: BMI 32.2
[2023-01-28] VITALS (22 sets, daily range): BP systolic 107–148; BP diastolic 53–67; PULSE 63–89; RESP 11–29; TEMP 37; O2SAT 92–99; BMI 26.6
--- NOTE | 2023-01-28 09:31 | DI.RAD.S_ITS ---
PROCEDURE: XR CHEST 1V INDICATIONS: Chest pain TECHNIQUE: One view of the chest was acquired. COMPARISON: [facility], CR, XR CHEST 1V, 09/13/2022, 19:44. [facility], CR, XR CHEST 1V, 03/17/2022, 15:28. FINDINGS: Surgical changes and devices: None. Lungs and pleura: Lungs are clear. No pleural effusions or pneumothorax. Mediastinum: Mediastinal contours appear normal. Heart size is normal. Bones and chest wall: No suspicious bony lesions. Overlying soft tissues appear unremarkable. IMPRESSION: No acute cardiopulmonary abnormality. Dictated by: Harris Aguayo M.D. on 01/28/2023 at 10:35 Approved by: Harris Aguayo M.D. on 01/28/2023 at 10:36
--- NOTE | 2023-01-28 09:41 | ED.CHESTPAIN ---
HPI - Chest Pain General Chief Complaint: Chest Pain Stated Complaint: chest pain/headache/sweatoing/back pain Time Seen by Provider: 01/28/23 09:30 Source: patient Mode of arrival: Ambulatory Limitations: no limitations History of Present Illness HPI narrative: Patient is a 52-year-old female. Has a significant history of anxiety and depression. Has been seen here in the emergency department in the past for intentional overdose. She does see a counselor. She was supposed to see her counselor at 1000 hours this morning however was not feeling very well which is what brought her here to the emergency department. She had 2 of her mental health medications increased yesterday. She does not see a psychiatrist/psychologist. Her primary doctor manages her medicines. Her last primary doctor's visit was approximately 3 weeks ago where she just had manipulation treatments performed. After having those treatments she started to have chest discomfort and headaches and generally not feeling very well. She is also having chest pain. No shortness of breath. She wakes up every day with the discomfort. She states that her anxiety and depression are getting much worse because of the discomfort that she is in. She states she just wants to ?lead a normal life? he states she does not want to be in any pain anymore. She understands that the discomfort is making her other symptoms get much worse. She is taking all of her medications as directed. She is here in the emergency department with her . She does describe the chest discomfort is the left side of her chest. It is also pressure. Related Data Home Medications Medication Instructions Recorded Confirmed abacavir 600 mg-dolutegravir 50 1 tab PO DAILY 09/14/22 10/15/22 mg-lamivudine 300 mg tablet (Triumeq) atomoxetine 40 mg capsule 40 mg PO QAM 09/14/22 10/15/22 atorvastatin 20 mg tablet 20 mg PO DAILY 09/14/22 10/15/22 buprenorphine 2 mg-naloxone 0.5 mg 4 tab sublingual DAILY 09/14/22 10/15/22 sublingual tablet cetirizine 10 mg tablet 10 mg PO DAILY 09/14/22 10/15/22 clonazepam 1 mg tablet 1.5 mg PO BEDTIME 09/14/22 10/15/22 clonazepam 1 mg tablet 2 mg PO QAM 09/14/22 10/15/22 dexlansoprazole 60 mg 60 mg PO DAILY 09/14/22 10/15/22 capsule,biphase delayed release (Dexilant) empagliflozin 10 mg tablet 10 mg PO QAM 09/14/22 10/15/22 (Jardiance) gabapentin 800 mg tablet 800 mg PO BID 09/14/22 10/15/22 metformin 1,000 mg tablet 1,000 mg PO BIDWMEAL 09/14/22 10/15/22 metoclopramide HCl 10 mg tablet 10 mg PO 4XD 09/14/22 10/15/22 ondansetron 4 mg disintegrating 4 mg PO 4XD PRN nausea/vomiting 09/14/22 10/15/22 tablet prazosin 2 mg capsule 2 mg PO BEDTIME 09/14/22 10/15/22 propranolol 80 mg capsule,extended 80 mg PO DAILY 09/14/22 10/15/22 release 24 hr spironolactone 50 mg tablet 50 mg PO QAM 09/14/22 10/15/22 trazodone 150 mg tablet 150 mg PO BEDTIME 09/14/22 10/15/22 Previous Rx's Medication Instructions Recorded nitrofurantoin 100 mg PO BID #20 caps 09/28/22 monohydrate/macrocrystals 100 mg capsule phenazopyridine 200 mg tablet 200 mg PO TID PRN pain #20 tabs 09/28/22 (Pyridium) estradiol 1 mg tablet 1 mg PO DAILY #90 tabs 12/15/22 Allergies Allergy/AdvReac Type Severity Reaction Status Date / Time levofloxacin [LEVOFLOXACIN] Allergy Severe hives Verified 01/28/23 09:35 Sulfa (Sulfonamide Allergy Severe rash Verified 01/28/23 09:35 Antibiotics) [SULFA (SULFONAMIDE ANTIBIOTICS)] amoxicillin [From AUGMENTIN] Allergy Mild rash Verified 01/28/23 09:35 ciprofloxacin [From CIPRO] Allergy Mild rash Verified 01/28/23 09:35 clarithromycin [From BIAXIN] Allergy Mild rash Verified 01/28/23 09:35 clavulanic acid Allergy Mild rash Verified 01/28/23 09:35 [From AUGMENTIN] morphine [MORPHINE] AdvReac Mild n/v Verified 01/28/23 09:35 pregabalin [PREGABALIN] AdvReac Mild lost voice Verified 01/28/23 09:35 Review of Systems Review of Systems ROS Unobtainable: All systems reviewed & are unremarkable except as noted in HPI and below Patient History Medical History Retained ureteral stent Hx of osteoarthritis Hx of migraine headaches History of liver disease Kidney stone on left side Bipolar disorder Arthritis HIV (human immunodeficiency virus infection) History of gastrointestinal symptoms Anxiety Diabetes mellitus Hypertension GERD (gastroesophageal reflux disease) Fibroids Depression PTSD (post-traumatic stress disorder) Surgical History History of cystoscopy (2013) History of stress incontinence procedure using tension free vaginal tape (2013) S/P functional endoscopic sinus surgery (2002) Status post arthroscopy (2003) Status post cholecystectomy (2011) Status post laparoscopic supracervical hysterectomy (2011) Family History Father Diabetes mellitus Hypertension CVA (cerebral vascular accident) Mother Diabetes mellitus Hypertension CVA (cerebral vascular accident) Hearing impairment Brother Hypertension Social History marital status: number of children: 3 household members: spouse occupational status: disabled Smoking Status: Current every day smoker alcohol intake: never caffeine: Yes Type(s) of exercise: none Smoking Status: Current every day smoker tobacco type: cigarettes alcohol intake frequency: holidays/special occasions only Substance Use Type: marijuana Exam Initial Vital Signs Initial Vital Signs: Vital Signs Pulse Rate 65 01/28/23 09:33 Respiratory Rate 20 01/28/23 09:33 Pulse Oximetry 99 01/28/23 09:33 Const General: No ill appearing HENMT Head: normal to inspection and normocephalic Resp Effort & Inspection: normal respiratory effort Auscultation: clear to auscultation bilaterally Cardio Rate: regular rate Rhythm: regular rhythm GI Inspection: normal to inspection and non-distended Neuro General: patient alert, patient awake, patient oriented x3 and moves all extremities Extrem General: No edema Psych Appearance: well kempt Course Orders Ordered: ED Orders 01/28/23 09:31 XR chest 1V Stat 01/28/23 09:43 Consult to TRACTOR OPERATOR [employer]TERY - Building Rental Superintendent Stat 01/28/23 09:50 Complete Blood Count AUTO DIFF Stat Comprehensive Metabolic Panel Stat Ethanol (ETOH) Stat Lipase Stat Magnesium Stat Thyroid Stimulating Hormone Stat Troponin & CK Cardiac Panel Stat EKG-12 Lead Stat 01/28/23 10:22 Urine Drug Screen, Rapid Stat 01/28/23 11:45 COVID19 -Nasal RAPID Stat Discontinued Medications Ketorolac Tromethamine (Ketorolac 30 Mg/Ml Vial) 30 mg IV NOW ONE Stop: 01/28/23 11:25 Last Admin: 01/28/23 12:02 Dose: Not Given Documented By: SHARAD Lorazepam (Lorazepam 2 Mg/Ml Inj) 1 mg IV NOW ONE Stop: 01/28/23 10:45 Last Admin: 01/28/23 10:52 Dose: 1 mg Documented By: SHARAD Lorazepam (Lorazepam 0.5 Mg Tablet) 1 mg PO NOW ONE Stop: 01/28/23 11:54 Last Admin: 01/28/23 11:57 Dose: 1 mg Documented By: SHARAD Vital Signs Vital signs: Vital Signs - 8 hr 01/28/23 09:33 01/28/23 09:35 01/28/23 09:45 Temperature 98.6 F Pulse Rate 65 68 63 Respiratory Rate 20 20 16 Blood Pressure 117/67 Pulse Oximetry 99 98 97 Oxygen Delivery Method Room Air 01/28/23 10:00 01/28/23 10:00 01/28/23 10:23 Temperature Pulse Rate 64 67 Respiratory Rate 16 23 Blood Pressure 143/67 H Pulse Oximetry 96 92 Oxygen Delivery Method Room Air 01/28/23 10:24 01/28/23 10:24 01/28/23 10:30 Temperature Pulse Rate 69 Respiratory Rate 15 Blood Pressure 148/67 H 140/67 Pulse Oximetry 98 Oxygen Delivery Method 01/28/23 10:30 01/28/23 10:45 01/28/23 11:00 Temperature Pulse Rate 74 85 77 Respiratory Rate 18 19 24 Blood Pressure Pulse Oximetry 98 98 96 Oxygen Delivery Method 01/28/23 11:01 01/28/23 11:01 01/28/23 11:15 Temperature Pulse Rate 76 76 Respiratory Rate 17 13 Blood Pressure 108/53 L Pulse Oximetry 98 97 Oxygen Delivery Method 01/28/23 11:30 01/28/23 11:30 01/28/23 11:45 Temperature Pulse Rate 82 79 Respiratory Rate 17 19 Blood Pressure 107/53 L Pulse Oximetry 94 94 Oxygen Delivery Method 01/28/23 11:50 01/28/23 11:55 01/28/23 12:00 Temperature Pulse Rate 77 81 Respiratory Rate 11 L 29 H Blood Pressure 114/59 L Pulse Oximetry 94 95 Oxygen Delivery Method 01/28/23 12:00 01/28/23 12:05 01/28/23 12:10 Temperature Pulse Rate 77 80 89 Respiratory Rate 16 29 H 27 H Blood Pressure Pulse Oximetry 96 96 95 Oxygen Delivery Method 01/28/23 12:15 01/28/23 12:20 01/28/23 12:25 Temperature Pulse Rate 80 74 78 Respiratory Rate 22 15 24 Blood Pressure Pulse Oximetry 95 97 98 Oxygen Delivery Method 01/28/23 12:30 01/28/23 12:30 Temperature Pulse Rate 76 Respiratory Rate 13 Blood Pressure 121/64 Pulse Oximetry 96 Oxygen Delivery Method MDM - Chest Pain Medical Records Data Attestation: I reviewed the patient's medical records. Lab Data Attestation: I reviewed the patient's lab results. 01/28/23 09:50 01/28/23 09:50 Labs: Lab Results 01/28/23 01/28/23 01/28/23 Range/Units 09:50 10:22 11:45 WBC 9.1 (4.5-11.0) X10^3/uL RBC 4.84 (4.0-5.2) X10^6/uL Hgb 15.0 (12.0-16.0) g/dL Hct 44.7 (36-46) % MCV 92.5 (80-100) fL MCH 31.1 (26-34) PG MCHC 33.6 (30-36) % RDW 14.1 (11.6-14.8) % Plt Count 230 (150-400) X10^3/uL Neut % (Auto) 75.1 H (50-75) % Lymph % (Auto) 20.5 L (25-40) % [place] % (Auto) 2.9 L (3-14) % Eos % (Auto) 1.0 L (2-4) % Baso % (Auto) 0.5 (0-2) % Neut # (Auto) 6800 (1439-7640) /uL Lymph # (Auto) 1900 (0590-5336) /uL [place] # (Auto) 300 (0-900) /uL Eos # (Auto) 100 (0-450) /uL Baso # (Auto) 0 (0-100) /uL Sodium 136 L (137-145) mmol/L Potassium 4.3 (3.4-5.1) mmol/L Chloride 99 (98-107) mmol/L Carbon Dioxide 29 (22-32) mmol/L BUN 13 (7-17) mg/dL Creatinine 0.79 (0.52-1.04) mg/dL Estimated GFR > 60 (>60) mL/min BUN/Creatinine Ratio 16.5 (6-22) Glucose 349 H (70-100) mg/dL Calcium 10.0 (8.4-10.2) mg/dL Magnesium 1.8 (1.6-2.3) mg/dL Total Bilirubin 0.6 (0.2-1.3) mg/dL AST 23 (14-36) IU/L ALT 20 (<35) IU/L Alkaline Phosphatase 84 (38-126) U/L Total Creatine Kinase 23 L (30-135) U/L Troponin I < 0.012 (0.01-0.034) ng/mL Total Protein 7.7 (6.3-8.2) g/dL Albumin 4.3 (3.5-5.0) g/dL Globulin 3.4 (1.7-4.1) g/dL Albumin/Globulin Ratio 1.3 (1.0-2.8) Lipase 169 (23-300) U/L TSH 0.605 (0.47-4.68) uIU/mL U Opiates 300ng/mL cut Negative (Negative) Ur Oxycodone Screen Negative (Negative) Urine Methadone Screen Negative (Negative) Ur Barbiturates Screen Negative (Negative) U Tricyclic Antidepress Negative (Negative) Ur Phencyclidine Scrn Negative (Negative) Ur Amphetamines Screen Negative (Negative) U Methamphetamines Scrn Negative (Negative) Ur MDMA Scrn (Ecstasy) Negative (Negative) U Benzodiazepines Scrn Negative (Negative) Urine Cocaine Screen Negative (Negative) U Marijuana (THC) Screen Positive H (Negative) Ethyl Alcohol < 10 ( - 10) mg/dL SARS-CoV-2 (PCR) Negative (Negative) Urine Dip Bedside Urine Glucose 1000 mg/dl Bedside Urine Bilirubin - Negative Bedside Urine Ketone - Negative Urine Specific [place] 1.010 Bedside Urine Occult Blood - Negative Bedside Urine pH 7.0 Bedside Urine Protein - Negative Bedside Urine Urobilinogen - Negative Bedside Urine Nitrite - Negative Bedside Urine Leukocytes - Negative Esterase Imaging Data Chest x-ray: Radiologist's Impression: PROCEDURE: XR CHEST 1V INDICATIONS: Chest pain TECHNIQUE: One view of the chest was acquired. COMPARISON: [facility], CR, XR CHEST 1V, 09/13/2022, 19:44. [facility], CR, XR CHEST 1V, 03/17/2022, 15:28. FINDINGS: Surgical changes and devices: None. Lungs and pleura: Lungs are clear. No pleural effusions or pneumothorax. Mediastinum: Mediastinal contours appear normal. Heart size is normal. Bones and chest wall: No suspicious bony lesions. Overlying soft tissues appear unremarkable. IMPRESSION: No acute cardiopulmonary abnormality. ECG Data Attestation: I personally reviewed and interpreted this ECG as follows: Interpretation: Sinus rhythm Ventricular rate is 61 Normal axis Normal QRS Normal QTC No ST T wave changes MDM Narrative Medical decision making narrative: Low suspicion for ACS, TIAs or CVA. Patient does have quite a few chronic medical issues to include anxiety and depression. She is taking her medications. I suspect that she is not feeling well which makes her more depressed which then makes her chronic pain and not feeling well worse and then this makes her more depressed afterwards. She did have some suicidal thoughts and made statements about not wanting to be alive any longer not wanting to go on feeling like this. She was seen by social work. Patient did not want admitted to the hospital. Patient's states that he is willing to watch over her and make sure that she is safe. She does have a therapist that she can see and also primary doctor. She recently increased her mental health medications. Patient did leave prior to receiving her discharge paperwork. Discharge Plan Departure Patient Disposition: Home Clinical Impression: Depression, Atypical chest pain Instructions: DI for Atypical Chest Pain Prescriptions: No Action nitrofurantoin monohyd/m-cryst 100 mg capsule 100 mg PO BID Qty: 20 0RF Rx Instructions: must administer with a meal/food phenazopyridine [Pyridium] 200 mg tablet 200 mg PO TID PRN (Reason: pain) Qty: 20 0RF estradiol 1 mg tablet 1 mg PO DAILY Qty: 90 3RF atorvastatin 20 mg tablet 20 mg PO DAILY cetirizine 10 mg Tablet 10 mg PO DAILY clonazepam 1 mg tablet 2 mg PO QAM clonazepam 1 mg Tablet 1.5 mg PO BEDTIME gabapentin 800 mg tablet 800 mg PO BID trazodone 150 mg tablet 150 mg PO BEDTIME metformin 1,000 mg Tablet 1,000 mg PO BIDWMEAL ondansetron 4 mg tablet,disintegrating 4 mg PO 4XD PRN (Reason: nausea/vomiting) Patient Comments: DISSOLVE 1 tablet ON TONGUE 3 TO 4 TIMES DAILY if needed FOR NAUSEA AND VOMITING prazosin 2 mg Capsule 2 mg PO BEDTIME spironolactone 50 mg tablet 50 mg PO QAM metoclopramide HCl 10 mg tablet 10 mg PO 4XD atomoxetine 40 mg capsule 40 mg PO QAM buprenorphine-naloxone 2-0.5 mg tablet, sublingual 4 tab SUBLINGUAL DAILY propranolol 80 mg Capsule,Extended Release 24hr 80 mg PO DAILY dexlansoprazole [Dexilant] 60 mg Capsule,Biphase Delayed Releas 60 mg PO DAILY Jardiance 10 mg Tablet 10 mg PO QAM Triumeq 600-50-300 mg tablet 1 tab PO DAILY Referrals: Nidhi Faustin DO [Primary Care Provider] - Stand Alone Forms: Patient Portal/API
[2023-01-28 09:58] LABS: Add Manual Diff / Slide Review NO; Basophils Absolute Auto 0 /uL (0-100); Basophils Percent Auto 0.5 % (0-2); Eosinophils Absolute Auto 100 /uL (0-450); Hematocrit 44.7 % (36-46); Lymphocytes Absolute Auto 1900 /uL (1100-4500); Lymphocytes Percent Auto 20.5 % (25-40); Mean Corpuscular HGB Conc 33.6 % (30-36); Mean Corpuscular Hemoglobin 31.1 PG (26-34); Mean Corpuscular Volume 92.5 fL (80-100); Monocytes Absolute Auto 300 /uL (0-900); Monocytes Percent Auto 2.9 % (3-14); Neutrophils Absolute Auto 6800 /uL (1500-7000); Neutrophils Percent Auto 75.1 % (50-75); Platelet Count 230 X10^3/uL (150-400); Red Blood Cell Count 4.84 X10^6/uL (4.0-5.2); Red Cell Distribution Width 14.1 % (11.6-14.8); White Blood Cell Count 9.1 X10^3/uL (4.5-11.0)
[2023-01-28 10:12] LABS: Alanine Aminotransferase 20 IU/L (<35); Albumin 4.3 g/dL (3.5-5.0); Albumin Globulin Ratio 1.3 (1.0-2.8); Alkaline Phosphatase 84 U/L (38-126); Aspartate Aminotransferase 23 IU/L (14-36); BUN Creatinine Ratio 16.5 (6-22); Bilirubin Total 0.6 mg/dL (0.2-1.3); Blood Urea Nitrogen 13 mg/dL (7-17); Carbon Dioxide 29 mmol/L (22-32); Chloride 99 mmol/L (98-107); Creatine Kinase 23 U/L (30-135); Estimated Glomerular Filt Rate > 60 mL/min (>60); Globulin 3.4 g/dL (1.7-4.1); Glucose 349 mg/dL (70-100); HEMOLYSIS < 15 (0-50); Lipase 169 U/L (23-300); Potassium 4.3 mmol/L (3.4-5.1); Sodium 136 mmol/L (137-145); Total Protein 7.7 g/dL (6.3-8.2)
[2023-01-28 10:24] LABS: Troponin I < 0.012 ng/mL (0.01-0.034)
--- NOTE | 2023-01-28 10:34 | PC.NURSE ---
Pt came to the emergency department today because is feeling like her quality of life has decreased. Pt has hx of HIV. She is currently having SI, but she does not have an active plan at this time. Pt does have hx of cutting and unsuccessful suicide attempt and would like to find some resources or inpatient tx to help with her depression. She does not feel like her medications are working and she is also having increased back pain, SOB, GERD sx. Pt denies any cp at this time. Pt overall appearance is well groomed, but demeanor is withdrawn and tearful.
[2023-01-28 10:43] LABS: Thyroid Stimulating Hormone 0.605 uIU/mL (0.47-4.68)
[2023-01-28] MEDS: LORazepam 2 MG/ML INJ 1 MG IV (10:52)
[2023-01-28 10:59] LABS: UR Morphine/Opiate cutoff 300 Negative (Negative); Ur Creatinine Normal (Normal); Ur Specific Gravity Normal (Normal); Urine Amphetamines Negative (Negative); Urine Barbiturates Negative (Negative); Urine Benzodiazepines Negative (Negative); Urine Cocaine Negative (Negative); Urine MDMA Negative (Negative); Urine Methadone Negative (Negative); Urine Methamphetamines Negative (Negative); Urine Oxycodone Negative (Negative); Urine Phencyclidine Negative (Negative); Urine Tetrahydrocannabinol Positive (Negative); Urine Tricyclic Antidepressant Negative (Negative); Urine pH Normal (Normal)
[2023-01-28 11:04] LABS: Ethanol (ETOH) < 10 mg/dL; Magnesium 1.8 mg/dL (1.6-2.3)
[2023-01-28] MEDS: LORazepam 0.5 MG TABLET 1 MG PO (11:57)
[2023-01-28 12:07] LABS: COVID19 -Nasal RAPID Negative (Negative)
--- NOTE | 2023-01-28 12:48 | PC.NURSE ---
Pt no longer on q15 min checks and will be discharged. Ghada AREVALO making appointments for out patient follow up.
--- NOTE | 2023-01-28 12:59 | PC.NURSE ---
states we talked to the counselor- were good declined to wait for formal d/c instructions.
--- NOTE | 2023-01-28 13:00 | PC.NURSE ---
PCP ED f/u appt with Dr. Nidhi Faustin @ [facility]--Thursday 02/01 @ 2pm
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
== END 2023-01-28 12:59 | disposition home or self-care (01) ==
PROVIDERS: Emergency Provider Emergency Medicine; PCP Family Medicine
DX: R07.89 Other chest pain (principal); F32.A Depression, unspecified; Z79.899 Other long term (current) drug therapy; Z20.822 Contact with and (suspected) exposure to COVID-19
CPT/HCPCS: 36415; 71045; 80053; 80305; 80320; 81003; 82550; 83690; 83735; 84443; 84484; 85025; 87635; 93005; 96374; 99284; 99285; C9803; J1885; J2060

== ENCOUNTER 2023-04-10 13:09 | Emergency (ER) | payer MEDICARE, OTHER, SELFPAY ==
[2022-09-14 16:30] VITALS: BMI 32.2
[2023-04-10] VITALS (28 sets, daily range): BP systolic 92–126; BP diastolic 56–74; PULSE 63–95; RESP 12–22; TEMP 36.6; O2SAT 92–99; BMI 25.2
--- NOTE | 2023-04-10 13:24 | DI.RAD.S_ITS ---
PROCEDURE: XR CHEST 1V INDICATIONS: suspected sepsis TECHNIQUE: One view of the chest was acquired. COMPARISON: [facility], CR, XR CHEST 1V, 01/28/2023, 10:01. [facility], CR, XR CHEST 1V, 09/13/2022, 19:44. [facility], CR, XR CHEST 1V, 03/17/2022, 15:28. FINDINGS: Surgical changes and devices: None. Lungs and pleura: An incomplete inspiratory result is noted, causing a crowded appearance to the lung markings. No focal infiltrates are seen. No pneumothorax or significant pleural effusions are seen. Mediastinum: Mediastinal contours appear normal. Heart size is normal. Bones and chest wall: No suspicious bony lesions. Age-appropriate bony degenerative changes are seen. Overlying soft tissues appear unremarkable. IMPRESSION: Low lung volumes, without an acute abnormality seen by plain film. Dictated by: Alex Love M.D. on 04/10/2023 at 13:14 Approved by: Alex Love M.D. on 04/10/2023 at 13:15
[2023-04-10 14:15] LABS: Add Manual Diff / Slide Review NO; Basophils Absolute Auto 100 /uL (0-100); Basophils Percent Auto 0.5 % (0-2); Eosinophils Absolute Auto 300 /uL (0-450); Eosinophils Percent Auto 2.1 % (2-4); Hemoglobin 14.9 g/dL (12.0-16.0); Lymphocytes Absolute Auto 1900 /uL (1100-4500); Lymphocytes Percent Auto 16.2 % (25-40); Mean Corpuscular HGB Conc 33.1 % (30-36); Mean Corpuscular Volume 90.6 fL (80-100); Monocytes Absolute Auto 500 /uL (0-900); Neutrophils Absolute Auto 9100 /uL (1500-7000); Neutrophils Percent Auto 77.2 % (50-75); Platelet Count 209 X10^3/uL (150-400); Red Blood Cell Count 4.96 X10^6/uL (4.0-5.2); Red Cell Distribution Width 13.7 % (11.6-14.8); White Blood Cell Count 11.8 X10^3/uL (4.5-11.0)
[2023-04-10 14:17] LABS: Prothrombin Time 11.1 SECONDS (9.4-12.5)
[2023-04-10 14:19] LABS: PTT Partial Thromboplastin Tim 23 SECONDS (25.1-36.5)
[2023-04-10 14:29] LABS: Creatine Kinase 20 U/L (30-135); Lactate (Lactic Acid) 3.4 mmol/L (0.7-2.1)
[2023-04-10 14:30] LABS: Alanine Aminotransferase 16 IU/L (<35); Albumin 3.9 g/dL (3.5-5.0); Albumin Globulin Ratio 1.2 (1.0-2.8); Alkaline Phosphatase 78 U/L (38-126); Aspartate Aminotransferase 23 IU/L (14-36); BUN Creatinine Ratio 11.1 (6-22); Bilirubin Total 0.6 mg/dL (0.2-1.3); Blood Urea Nitrogen 9 mg/dL (7-17); Calcium 9.6 mg/dL (8.4-10.2); Carbon Dioxide 25 mmol/L (22-32); Chloride 102 mmol/L (98-107); Estimated Glomerular Filt Rate > 60 mL/min (>60); Globulin 3.3 g/dL (1.7-4.1); Glucose 157 mg/dL (70-100); HEMOLYSIS 19 (0-50); Lipase 118 U/L (23-300); Potassium 3.5 mmol/L (3.4-5.1); Sodium 137 mmol/L (137-145); Total Protein 7.2 g/dL (6.3-8.2)
[2023-04-10] MEDS: KETOROLAC 30 MG/ML VIAL 15 MG IV (14:32)
[2023-04-10] MEDS: ONDANSETRON 4 MG/2 ML INJ IV ×2 (14:33→17:48)
[2023-04-10 14:41] LABS: Troponin I < 0.012 ng/mL (0.01-0.034)
--- NOTE | 2023-04-10 14:42 | PC.NURSE ---
Pt complains of having incontinent watery stool episodes while she is asleep.
[2023-04-10 14:45] LABS: Procalcitonin 0.06 ng/mL (<0.5)
--- NOTE | 2023-04-10 14:50 | ED.WEAKNESS ---
HPI - Weakness <Daisy Crain, DO - Last Filed: 04/11/23 07:00> General Chief complaint: Weakness Stated complaint: cough, loss of apetite, dizzy Time Seen by Provider: 04/10/23 14:27 Source: patient Mode of arrival: Ambulatory History of Present Illness HPI Narrative: Patient 52-year-old female history of diabetes well-controlled HIV, hyperlipidemia, anxiety depression bipolar migraines presenting today with variety of symptoms. She says she has not really felt well for a month. She has had stool incontinence ongoing nightly for a month. Every night she has stool incontinence in the bed. Last time it was 3 times which was more than normal. She is absolutely no back pain. Does look like some of her medications were changed she was started on Invokamet for diabetes. She is not had fever or chills. Although today she has had headache. She is sensitive to light she is having some neck pain. She is afebrile she denies any fever or chills. She is no abdominal pain nausea or vomiting. No chest shortness breath. Blood pressure is noted to be slightly low. She reports significant decrease in appetite. Related Data Home Medications Medication Instructions Recorded Confirmed abacavir 600 mg-dolutegravir 50 1 tab PO DAILY 09/14/22 10/15/22 mg-lamivudine 300 mg tablet (Triumeq) atomoxetine 40 mg capsule 40 mg PO QAM 09/14/22 10/15/22 atorvastatin 20 mg tablet 20 mg PO DAILY 09/14/22 10/15/22 buprenorphine 2 mg-naloxone 0.5 mg 4 tab sublingual DAILY 09/14/22 10/15/22 sublingual tablet cetirizine 10 mg tablet 10 mg PO DAILY 09/14/22 10/15/22 clonazepam 1 mg tablet 1.5 mg PO BEDTIME 09/14/22 10/15/22 clonazepam 1 mg tablet 2 mg PO QAM 09/14/22 10/15/22 dexlansoprazole 60 mg 60 mg PO DAILY 09/14/22 10/15/22 capsule,biphase delayed release (Dexilant) empagliflozin 10 mg tablet 10 mg PO QAM 09/14/22 10/15/22 (Jardiance) gabapentin 800 mg tablet 800 mg PO BID 09/14/22 10/15/22 metformin 1,000 mg tablet 1,000 mg PO BIDWMEAL 09/14/22 10/15/22 metoclopramide HCl 10 mg tablet 10 mg PO 4XD 09/14/22 10/15/22 ondansetron 4 mg disintegrating 4 mg PO 4XD PRN nausea/vomiting 09/14/22 10/15/22 tablet prazosin 2 mg capsule 2 mg PO BEDTIME 09/14/22 10/15/22 propranolol 80 mg capsule,extended 80 mg PO DAILY 09/14/22 10/15/22 release 24 hr spironolactone 50 mg tablet 50 mg PO QAM 09/14/22 10/15/22 trazodone 150 mg tablet 150 mg PO BEDTIME 09/14/22 10/15/22 Previous Rx's Medication Instructions Recorded nitrofurantoin 100 mg PO BID #20 caps 09/28/22 monohydrate/macrocrystals 100 mg capsule phenazopyridine 200 mg tablet 200 mg PO TID PRN pain #20 tabs 09/28/22 (Pyridium) estradiol 1 mg tablet 1 mg PO DAILY #90 tabs 12/15/22 Allergies Allergy/AdvReac Type Severity Reaction Status Date / Time levofloxacin [LEVOFLOXACIN] Allergy Severe hives Verified 04/10/23 13:19 Sulfa (Sulfonamide Allergy Severe rash Verified 04/10/23 13:19 Antibiotics) [SULFA (SULFONAMIDE ANTIBIOTICS)] amoxicillin [From AUGMENTIN] Allergy Mild rash Verified 04/10/23 13:19 ciprofloxacin [From CIPRO] Allergy Mild rash Verified 04/10/23 13:19 clarithromycin [From BIAXIN] Allergy Mild rash Verified 04/10/23 13:19 clavulanic acid Allergy Mild rash Verified 04/10/23 13:19 [From AUGMENTIN] morphine [MORPHINE] AdvReac Mild n/v Verified 04/10/23 13:19 pregabalin [PREGABALIN] AdvReac Mild lost voice Verified 04/10/23 13:19 Patient History <Daisy Crain DO - Last Filed: 04/11/23 07:00> Medical History Retained ureteral stent Hx of osteoarthritis Hx of migraine headaches History of liver disease Kidney stone on left side Bipolar disorder Arthritis HIV (human immunodeficiency virus infection) History of gastrointestinal symptoms Anxiety Diabetes mellitus Hypertension GERD (gastroesophageal reflux disease) Fibroids Depression PTSD (post-traumatic stress disorder) Surgical History History of cystoscopy (2013) History of stress incontinence procedure using tension free vaginal tape (2013) S/P functional endoscopic sinus surgery (2002) Status post arthroscopy (2003) Status post cholecystectomy (2011) Status post laparoscopic supracervical hysterectomy (2011) Family History Father Diabetes mellitus Hypertension CVA (cerebral vascular accident) Mother Diabetes mellitus Hypertension CVA (cerebral vascular accident) Hearing impairment Brother Hypertension Social History marital status: number of children: 3 household members: spouse occupational status: disabled Smoking Status: Current every day smoker alcohol intake: never caffeine: Yes Type(s) of exercise: none Smoking Status: Current every day smoker tobacco type: cigarettes alcohol intake frequency: holidays/special occasions only Substance Use Type: marijuana Exam <Daisy Crain DO - Last Filed: 04/11/23 07:00> Initial Vital Signs Initial Vital Signs: Vital Signs Temperature 97.8 F 04/10/23 13:13 Pulse Rate 95 H 04/10/23 13:13 Respiratory Rate 14 04/10/23 13:13 Blood Pressure 113/67 04/10/23 13:13 Pulse Oximetry 99 04/10/23 13:13 Oxygen Delivery Method Room Air 04/10/23 13:13 GENERAL: Alert 52-year-old female wearing sunglasses and in no acute distress. HEENT: Head atraumatic,EOMI, pupils reactive, face symmetric, moist mucous membranes CARDIOVASCULAR: Regular rate and rhythm without murmurs, rubs or gallops. RESPIRATORY: Breath sounds equal bilaterally, no wheezes rales or rhonchi. ABDOMEN: Soft, nontender. Normoactive bowel sounds all 4 quadrants. No guarding or rebound. BACK: No vertebral tenderness no step-off EXTREMITIES: Normal range of motion, no clubbing or edema. Neurovascularly intact NEUROLOGICAL: Alert and oriented x4.Normal gait and speech. Rn Vascular strength equal bilaterally SKIN: Warm, dry, no laceration, no petechiae, no rashes or lesions. <Kerry Flores MD - Last Filed: 04/10/23 20:43> Initial Vital Signs Initial Vital Signs: Vital Signs Temperature 97.8 F 04/10/23 13:13 Pulse Rate 95 H 04/10/23 13:13 Respiratory Rate 14 04/10/23 13:13 Blood Pressure 113/67 04/10/23 13:13 Pulse Oximetry 99 04/10/23 13:13 Oxygen Delivery Method Room Air 04/10/23 13:13 Course <Daisy Crain DO - Last Filed: 04/11/23 07:00> Orders Ordered: Discontinued Medications Hydromorphone HCl (Hydromorphone 1 Mg Inj) 1 mg IV NOW ONE Stop: 04/10/23 17:38 Last Admin: 04/10/23 17:48 Dose: 1 mg Documented By: ABBY Sodium Chloride (Normal Saline 0.9%) 1,000 mls @ 1,000 mls/hr IV BOLUS ONE Stop: 04/10/23 14:23 Last Admin: 04/10/23 17:14 Dose: Not Given Documented By: ABBY Sodium Chloride (Normal Saline 0.9%) 1,986 mls @ 662 mls/hr 30 ml/kg infuse over 3 hr (1986 ml) IV NOW ONE Stop: 04/10/23 17:27 Last Infusion: 04/10/23 17:10 Dose: Infused Documented By: Admin: 04/10/23 15:22 Dose: 662 mls/hr Documented By: ABBY Sodium Chloride (Normal Saline 0.9%) 1,000 mls @ 1,000 mls/hr IV BOLUS ONE Stop: 04/10/23 19:28 Last Infusion: 04/10/23 20:28 Dose: Infused Documented By: Infusion: 04/10/23 20:19 Dose: Infused Documented By: Admin: 04/10/23 19:13 Dose: 1,000 mls/hr Documented By: ABBY Ketorolac Tromethamine (Ketorolac 30 Mg/Ml Vial) 15 mg IV NOW ONE Stop: 04/10/23 14:29 Last Admin: 04/10/23 14:32 Dose: 15 mg Documented By: ABBY Loperamide HCl (Loperamide 2 Mg Capsule) 4 mg PO NOW ONE Stop: 04/10/23 19:59 Last Admin: 04/10/23 20:22 Dose: 4 mg Documented By: NORMA Morphine Sulfate (Morphine 4 Mg/Ml Inj) 4 mg IV NOW ONE Stop: 04/10/23 15:11 Last Admin: 04/10/23 15:15 Dose: 4 mg Documented By: ABBY Ondansetron HCl (Ondansetron 4 Mg/2 Ml Inj) 4 mg IV NOW PRN PRN Reason: Nausea And Vomiting Last Admin: 04/10/23 14:33 Dose: 4 mg Documented By: ABBY Ondansetron HCl (Ondansetron 4 Mg Odt) 4 mg SL NOW PRN PRN Reason: Nausea And Vomiting Ondansetron HCl (Ondansetron 4 Mg/2 Ml Inj) 4 mg IV NOW ONE Stop: 04/10/23 17:45 Last Admin: 04/10/23 17:48 Dose: 4 mg Documented By: ABBY Vital Signs Vital signs: Vital Signs - 8 hr 04/10/23 13:13 04/10/23 14:18 04/10/23 14:19 Temperature 97.8 F Pulse Rate 95 H 86 Respiratory Rate 14 17 Blood Pressure 113/67 96/58 L Pulse Oximetry 99 94 Oxygen Delivery Method Room Air 04/10/23 14:29 04/10/23 14:29 04/10/23 14:30 Temperature Pulse Rate 84 84 Respiratory Rate 21 13 Blood Pressure 104/69 Pulse Oximetry 92 95 Oxygen Delivery Method 04/10/23 14:30 04/10/23 14:45 04/10/23 14:45 Temperature Pulse Rate 83 Respiratory Rate 19 Blood Pressure 103/68 111/68 Pulse Oximetry 95 Oxygen Delivery Method 04/10/23 15:00 04/10/23 15:09 04/10/23 15:09 Temperature Pulse Rate 83 85 Respiratory Rate 17 17 Blood Pressure 121/69 Pulse Oximetry 96 96 Oxygen Delivery Method Room Air 04/10/23 15:15 04/10/23 15:15 04/10/23 15:30 Temperature Pulse Rate 83 81 Respiratory Rate 14 18 Blood Pressure 125/71 Pulse Oximetry 95 94 Oxygen Delivery Method Room Air Room Air 04/10/23 15:30 04/10/23 15:45 04/10/23 15:45 Temperature Pulse Rate 82 Respiratory Rate 19 Blood Pressure 113/68 104/64 Pulse Oximetry Oxygen Delivery Method 04/10/23 16:00 04/10/23 16:00 04/10/23 16:15 Temperature Pulse Rate 82 81 Respiratory Rate 21 18 Blood Pressure 100/62 Pulse Oximetry 93 95 Oxygen Delivery Method 04/10/23 16:15 04/10/23 16:30 04/10/23 16:30 Temperature Pulse Rate 78 Respiratory Rate 19 Blood Pressure 104/61 110/69 Pulse Oximetry 95 Oxygen Delivery Method Room Air 04/10/23 16:45 04/10/23 16:45 04/10/23 17:03 Temperature Pulse Rate 77 77 Respiratory Rate 20 22 Blood Pressure 108/68 Pulse Oximetry 96 98 Oxygen Delivery Method 04/10/23 17:09 04/10/23 17:09 04/10/23 17:15 Temperature Pulse Rate 77 76 Respiratory Rate 17 16 Blood Pressure 114/68 Pulse Oximetry 98 97 Oxygen Delivery Method Room Air 04/10/23 17:15 04/10/23 17:30 04/10/23 17:30 Temperature Pulse Rate 79 Respiratory Rate 21 Blood Pressure 110/68 105/62 Pulse Oximetry 95 Oxygen Delivery Method Room Air 04/10/23 17:45 04/10/23 17:45 04/10/23 18:00 Temperature Pulse Rate 78 76 Respiratory Rate 17 17 Blood Pressure 102/62 Pulse Oximetry 94 94 Oxygen Delivery Method Room Air 04/10/23 18:00 04/10/23 18:15 04/10/23 18:15 Temperature Pulse Rate 77 Respiratory Rate 17 Blood Pressure 99/61 96/59 L Pulse Oximetry 93 Oxygen Delivery Method Room Air 04/10/23 18:30 04/10/23 18:30 04/10/23 18:45 Temperature Pulse Rate 76 74 Respiratory Rate 17 15 Blood Pressure 94/58 L Pulse Oximetry 93 93 Oxygen Delivery Method Room Air 04/10/23 18:45 04/10/23 19:01 04/10/23 19:30 Temperature Pulse Rate 82 75 Respiratory Rate 18 Blood Pressure 92/56 L Pulse Oximetry 96 95 Oxygen Delivery Method Room Air 04/10/23 19:50 04/10/23 19:50 04/10/23 20:00 Temperature Pulse Rate 77 63 Respiratory Rate 18 12 Blood Pressure 126/74 Pulse Oximetry 96 99 Oxygen Delivery Method Room Air <Kerry Flores MD - Last Filed: 04/10/23 20:43> Orders Ordered: Discontinued Medications Hydromorphone HCl (Hydromorphone 1 Mg Inj) 1 mg IV NOW ONE Stop: 04/10/23 17:38 Last Admin: 04/10/23 17:48 Dose: 1 mg Documented By: ABBY Sodium Chloride (Normal Saline 0.9%) 1,000 mls @ 1,000 mls/hr IV BOLUS ONE Stop: 04/10/23 14:23 Last Admin: 04/10/23 17:14 Dose: Not Given Documented By: ABBY Sodium Chloride (Normal Saline 0.9%) 1,986 mls @ 662 mls/hr 30 ml/kg infuse over 3 hr (1986 ml) IV NOW ONE Stop: 04/10/23 17:27 Last Infusion: 04/10/23 17:10 Dose: Infused Documented By: Admin: 04/10/23 15:22 Dose: 662 mls/hr Documented By: ABBY Sodium Chloride (Normal Saline 0.9%) 1,000 mls @ 1,000 mls/hr IV BOLUS ONE Stop: 04/10/23 19:28 Last Infusion: 04/10/23 20:28 Dose: Infused Documented By: Infusion: 04/10/23 20:19 Dose: Infused Documented By: Admin: 04/10/23 19:13 Dose: 1,000 mls/hr Documented By: ABBY Ketorolac Tromethamine (Ketorolac 30 Mg/Ml Vial) 15 mg IV NOW ONE Stop: 04/10/23 14:29 Last Admin: 04/10/23 14:32 Dose: 15 mg Documented By: ABBY Loperamide HCl (Loperamide 2 Mg Capsule) 4 mg PO NOW ONE Stop: 04/10/23 19:59 Last Admin: 04/10/23 20:22 Dose: 4 mg Documented By: NORMA Morphine Sulfate (Morphine 4 Mg/Ml Inj) 4 mg IV NOW ONE Stop: 04/10/23 15:11 Last Admin: 04/10/23 15:15 Dose: 4 mg Documented By: ABBY Ondansetron HCl (Ondansetron 4 Mg/2 Ml Inj) 4 mg IV NOW PRN PRN Reason: Nausea And Vomiting Last Admin: 04/10/23 14:33 Dose: 4 mg Documented By: ABBY Ondansetron HCl (Ondansetron 4 Mg Odt) 4 mg SL NOW PRN PRN Reason: Nausea And Vomiting Ondansetron HCl (Ondansetron 4 Mg/2 Ml Inj) 4 mg IV NOW ONE Stop: 04/10/23 17:45 Last Admin: 04/10/23 17:48 Dose: 4 mg Documented By: SPF Vital Signs Vital signs: Vital Signs - 8 hr 04/10/23 13:13 04/10/23 14:18 04/10/23 14:19 Temperature 97.8 F Pulse Rate 95 H 86 Respiratory Rate 14 17 Blood Pressure 113/67 96/58 L Pulse Oximetry 99 94 Oxygen Delivery Method Room Air 04/10/23 14:29 04/10/23 14:29 04/10/23 14:30 Temperature Pulse Rate 84 84 Respiratory Rate 21 13 Blood Pressure 104/69 Pulse Oximetry 92 95 Oxygen Delivery Method 04/10/23 14:30 04/10/23 14:45 04/10/23 14:45 Temperature Pulse Rate 83 Respiratory Rate 19 Blood Pressure 103/68 111/68 Pulse Oximetry 95 Oxygen Delivery Method 04/10/23 15:00 04/10/23 15:09 04/10/23 15:09 Temperature Pulse Rate 83 85 Respiratory Rate 17 17 Blood Pressure 121/69 Pulse Oximetry 96 96 Oxygen Delivery Method Room Air 04/10/23 15:15 04/10/23 15:15 04/10/23 15:30 Temperature Pulse Rate 83 81 Respiratory Rate 14 18 Blood Pressure 125/71 Pulse Oximetry 95 94 Oxygen Delivery Method Room Air Room Air 04/10/23 15:30 04/10/23 15:45 04/10/23 15:45 Temperature Pulse Rate 82 Respiratory Rate 19 Blood Pressure 113/68 104/64 Pulse Oximetry Oxygen Delivery Method 04/10/23 16:00 04/10/23 16:00 04/10/23 16:15 Temperature Pulse Rate 82 81 Respiratory Rate 21 18 Blood Pressure 100/62 Pulse Oximetry 93 95 Oxygen Delivery Method 04/10/23 16:15 04/10/23 16:30 04/10/23 16:30 Temperature Pulse Rate 78 Respiratory Rate 19 Blood Pressure 104/61 110/69 Pulse Oximetry 95 Oxygen Delivery Method Room Air 04/10/23 16:45 04/10/23 16:45 04/10/23 17:03 Temperature Pulse Rate 77 77 Respiratory Rate 20 22 Blood Pressure 108/68 Pulse Oximetry 96 98 Oxygen Delivery Method 04/10/23 17:09 04/10/23 17:09 04/10/23 17:15 Temperature Pulse Rate 77 76 Respiratory Rate 17 16 Blood Pressure 114/68 Pulse Oximetry 98 97 Oxygen Delivery Method Room Air 04/10/23 17:15 04/10/23 17:30 04/10/23 17:30 Temperature Pulse Rate 79 Respiratory Rate 21 Blood Pressure 110/68 105/62 Pulse Oximetry 95 Oxygen Delivery Method Room Air 04/10/23 17:45 04/10/23 17:45 04/10/23 18:00 Temperature Pulse Rate 78 76 Respiratory Rate 17 17 Blood Pressure 102/62 Pulse Oximetry 94 94 Oxygen Delivery Method Room Air 04/10/23 18:00 04/10/23 18:15 04/10/23 18:15 Temperature Pulse Rate 77 Respiratory Rate 17 Blood Pressure 99/61 96/59 L Pulse Oximetry 93 Oxygen Delivery Method Room Air 04/10/23 18:30 04/10/23 18:30 04/10/23 18:45 Temperature Pulse Rate 76 74 Respiratory Rate 17 15 Blood Pressure 94/58 L Pulse Oximetry 93 93 Oxygen Delivery Method Room Air 04/10/23 18:45 04/10/23 19:01 04/10/23 19:30 Temperature Pulse Rate 82 75 Respiratory Rate 18 Blood Pressure 92/56 L Pulse Oximetry 96 95 Oxygen Delivery Method Room Air 04/10/23 19:50 04/10/23 19:50 04/10/23 20:00 Temperature Pulse Rate 77 63 Respiratory Rate 18 12 Blood Pressure 126/74 Pulse Oximetry 96 99 Oxygen Delivery Method Room Air MDM - Weakness <Daisy Crain, DO - Last Filed: 04/11/23 07:00> Lab Data 04/10/23 13:48 04/10/23 13:48 Labs: Lab Results 04/10/23 04/10/23 04/10/23 Range/Units 13:48 14:40 15:09 WBC 11.8 H (4.5-11.0) X10^3/uL RBC 4.96 (4.0-5.2) X10^6/uL Hgb 14.9 (12.0-16.0) g/dL Hct 45.0 (36-46) % MCV 90.6 (80-100) fL MCH 30.0 (26-34) PG MCHC 33.1 (30-36) % RDW 13.7 (11.6-14.8) % Plt Count 209 (150-400) X10^3/uL Neut % (Auto) 77.2 H (50-75) % Lymph % (Auto) 16.2 L (25-40) % Wallace % (Auto) 4.0 (3-14) % Eos % (Auto) 2.1 (2-4) % Baso % (Auto) 0.5 (0-2) % Neut # (Auto) 9100 H (8831-8128) /uL Lymph # (Auto) 1900 (7506-4191) /uL Wallace # (Auto) 500 (0-900) /uL Eos # (Auto) 300 (0-450) /uL Baso # (Auto) 100 (0-100) /uL PT 11.1 (9.4-12.5) SECONDS INR 1.0 (0.9-1.3) APTT 23 L (25.1-36.5) SECONDS Sodium 137 (137-145) mmol/L Potassium 3.5 (3.4-5.1) mmol/L Chloride 102 (98-107) mmol/L Carbon Dioxide 25 (22-32) mmol/L BUN 9 (7-17) mg/dL Creatinine 0.81 (0.52-1.04) mg/dL Estimated GFR > 60 (>60) mL/min BUN/Creatinine Ratio 11.1 (6-22) Glucose 157 H (70-100) mg/dL Lactate 3.4 H (0.7-2.1) mmol/L Calcium 9.6 (8.4-10.2) mg/dL Total Bilirubin 0.6 (0.2-1.3) mg/dL AST 23 (14-36) IU/L ALT 16 (<35) IU/L Alkaline Phosphatase 78 (38-126) U/L Total Creatine Kinase 20 L (30-135) U/L Troponin I < 0.012 (0.01-0.034) ng/mL Total Protein 7.2 (6.3-8.2) g/dL Albumin 3.9 (3.5-5.0) g/dL Globulin 3.3 (1.7-4.1) g/dL Albumin/Globulin Ratio 1.2 (1.0-2.8) Lipase 118 (23-300) U/L Procalcitonin 0.06 (<0.5) ng/mL Stl C. cayetanensis PCR Not detected (Not Detect) Stool Rotavirus (PCR) Not detected (Not Detect) Stool Adenovirus (PCR) Not detected (Not Detect) Stool Astrovirus (PCR) Not detected (Not Detect) Stool Cryptosporidium PCR Not detected (Not Detect) Stl E.coli Shiga Tox PCR Not detected (Not Detect) St Sh/Enteroin Ecoli PCR Not detected (Not Detect) Stl Enterotoxigenic E PCR Not detected (Not Detect) Stool EPEC (PCR) Not detected (Not Detect) Stl E. histolytica PCR Not detected (Not Detect) Stool Giardia Lamblia PCR Not detected (Not Detect) Stool Sapovirus (PCR) Not detected (Not Detect) Stl P. shigelloides PCR Not detected (Not Detect) St Y.enterocolitica PCR Not detected (Not Detect) Stool Vibrio (PCR) Not detected (Not Detect) Stl Vibrio cholerae PCR Not detected (Not Detect) Stl Enteroaggr Ecoli PCR Not detected (Not Detect) Stl Norovirus GI/GII PCR Not detected (Not Detect) Salicylates < 1.0 (<20) mg/dL Acetaminophen < 10 (10-30) ug/mL Ethyl Alcohol < 10 ( - 10) mg/dL Campylobacter (PCR) Not detected (Not Detect) C. difficile Tox (PCR) Not detected (Not Detect) SARS-CoV-2 (PCR) Negative (Negative) Salmonella (PCR) Not detected (Not Detect) 04/10/23 04/10/23 Range/Units 15:55 18:13 WBC (4.5-11.0) X10^3/uL RBC (4.0-5.2) X10^6/uL Hgb (12.0-16.0) g/dL Hct (36-46) % MCV (80-100) fL MCH (26-34) PG MCHC (30-36) % RDW (11.6-14.8) % Plt Count (150-400) X10^3/uL Neut % (Auto) (50-75) % Lymph % (Auto) (25-40) % Wallace % (Auto) (3-14) % Eos % (Auto) (2-4) % Baso % (Auto) (0-2) % Neut # (Auto) (3359-3171) /uL Lymph # (Auto) (8335-6853) /uL Wallace # (Auto) (0-900) /uL Eos # (Auto) (0-450) /uL Baso # (Auto) (0-100) /uL PT (9.4-12.5) SECONDS INR (0.9-1.3) APTT (25.1-36.5) SECONDS Sodium (137-145) mmol/L Potassium (3.4-5.1) mmol/L Chloride (98-107) mmol/L Carbon Dioxide (22-32) mmol/L BUN (7-17) mg/dL Creatinine (0.52-1.04) mg/dL Estimated GFR (>60) mL/min BUN/Creatinine Ratio (6-22) Glucose (70-100) mg/dL Lactate 3.0 H 2.3 H (0.7-2.1) mmol/L Calcium (8.4-10.2) mg/dL Total Bilirubin (0.2-1.3) mg/dL AST (14-36) IU/L ALT (<35) IU/L Alkaline Phosphatase (38-126) U/L Total Creatine Kinase (30-135) U/L Troponin I (0.01-0.034) ng/mL Total Protein (6.3-8.2) g/dL Albumin (3.5-5.0) g/dL Globulin (1.7-4.1) g/dL Albumin/Globulin Ratio (1.0-2.8) Lipase (23-300) U/L Procalcitonin (<0.5) ng/mL Stl C. cayetanensis PCR (Not Detect) Stool Rotavirus (PCR) (Not Detect) Stool Adenovirus (PCR) (Not Detect) Stool Astrovirus (PCR) (Not Detect) Stool Cryptosporidium PCR (Not Detect) Stl E.coli Shiga Tox PCR (Not Detect) St Sh/Enteroin Ecoli PCR (Not Detect) Stl Enterotoxigenic E PCR (Not Detect) Stool EPEC (PCR) (Not Detect) Stl E. histolytica PCR (Not Detect) Stool Giardia Lamblia PCR (Not Detect) Stool Sapovirus (PCR) (Not Detect) Stl P. shigelloides PCR (Not Detect) St Y.enterocolitica PCR (Not Detect) Stool Vibrio (PCR) (Not Detect) Stl Vibrio cholerae PCR (Not Detect) Stl Enteroaggr Ecoli PCR (Not Detect) Stl Norovirus GI/GII PCR (Not Detect) Salicylates (<20) mg/dL Acetaminophen (10-30) ug/mL Ethyl Alcohol ( - 10) mg/dL Campylobacter (PCR) (Not Detect) C. difficile Tox (PCR) (Not Detect) SARS-CoV-2 (PCR) (Negative) Salmonella (PCR) (Not Detect) Urine Dip Bedside Urine Glucose 1000 mg/dl Bedside Urine Bilirubin - Negative Bedside Urine Ketone - Negative Urine Specific [place] 1.015 Bedside Urine Occult Blood - Negative Bedside Urine pH 6.0 Bedside Urine Protein - Negative Bedside Urine Urobilinogen - Negative Bedside Urine Nitrite - Negative Bedside Urine Leukocytes - Negative Esterase Imaging Data Chest x-ray: Radiologist Impression: PROCEDURE: XR CHEST 1V INDICATIONS: suspected sepsis TECHNIQUE: One view of the chest was acquired. COMPARISON: [facility], CR, XR CHEST 1V, 01/28/2023, 10:01. [facility], CR, XR CHEST 1V, 09/13/2022, 19:44. [facility], CR, XR CHEST 1V, 03/17/2022, 15:28. FINDINGS: Surgical changes and devices: None. Lungs and pleura: An incomplete inspiratory result is noted, causing a crowded appearance to the lung markings. No focal infiltrates are seen. No pneumothorax or significant pleural effusions are seen. Mediastinum: Mediastinal contours appear normal. Heart size is normal. Bones and chest wall: No suspicious bony lesions. Age-appropriate bony degenerative changes are seen. Overlying soft tissues appear unremarkable. IMPRESSION: Low lung volumes, without an acute abnormality seen by plain film. Dictated by: Alex Love M.D. on 04/10/2023 at 13:14 ECG Data Interpretation: Sinus rhythm rate 78 SD interval 148 QRS 80 QTC 456 MDM Narrative Medical decision making narrative: Patient 52-year-old female history of HIV type 2 diabetes depression anxiety previous history of overdose is presenting today with diarrhea headache. She recently started new diabetic medication side effect can be diarrhea. Her diarrhea was a little bit worse last night. She is no significant abdominal pain. She is no evidence of dehydration or electrolyte abnormality. She is mildly hypotensive blood pressure improved with IV fluids. She is afebrile no leukocytosis. Lactate is elevated 3.4 which improved to 3.0. She has chronic ongoing headaches he continues to have a headache. She says it starts in the back of her neck goes all the way up she is actually moving her neck very easily. She has no focal deficits. Her neck is supple, not concerning for meningitis. She is been in the ED multiple hours she is only had 1 episode of diarrhea. She has absolutely no back pain or lower extremity weakness concern for cauda equina Blood work reviewed: WBC 11.8, hemoglobin 14.9 hematocrit 45, platelets 209, significant electrolyte abnormality creatinine 0.81 potassium 3.5 initial lactate 3.4 which improved to 3.0, negative troponin. Urinalysis negative GI panel unremarkable viral panel unremarkable , hospitalist updated patient's symptoms test results concern for some sort infection with ongoing elevated lactate and soft blood pressure. wants CT and then reconsulted -Dr. Flores updated patient's symptoms test results Care patient is assumed. Studies reviewed, patient independently evaluated. CT scan suggests probable colitis with no acute surgical abnormalities appreciated. Lactic acid has now come down from 3.4-3 0.0-2.3. Findings reviewed with patient. Discussed the use of Imodium which seem safe after workup that we have done today. We discussed hospitalization versus discharge home and with shared decision-making we decided that discharge home would be appropriate. Her most significant concern is why she is stooling herself in the middle of the night and I explained that, while that is an excellent question that does need an answer, she likely is going to need to discuss that with a editor managing director and probably will need a colonoscopy. Knowing that her stool PCR studies are unremarkable, that her CT scan does not show any acute surgical abnormalities and does suggest mild inflammation in the colon consistent with colitis that she would be safe for discharge. Her lactic level continues to come down and I think represents dehydration rather than any type of overwhelming infection. Reviewed with her the reasons to return to the emergency department also clearly reviewed with her dosing for Imodium to try to help with the diarrhea to slow volumes down which then fully will help with maintaining more appropriate hydration. She does complain that she is weak but then also notes she has not really had any food for the last 5 days. She understands the need for fuel in her body to have a bit more energy. We also talked about adding probiotics. Exam at time of discharge reveals no headache, no fevers, blood pressure 124/72, no abdominal pain and certainly not an acute surgical abdomen. She will follow up with her primary care doctor, questions are answered she is safe for discharge <Kerry Flores MD - Last Filed: 04/10/23 20:43> Lab Data Labs: Lab Results 04/10/23 04/10/23 04/10/23 Range/Units 13:48 14:40 15:09 WBC 11.8 H (4.5-11.0) X10^3/uL RBC 4.96 (4.0-5.2) X10^6/uL Hgb 14.9 (12.0-16.0) g/dL Hct 45.0 (36-46) % MCV 90.6 (80-100) fL MCH 30.0 (26-34) PG MCHC 33.1 (30-36) % RDW 13.7 (11.6-14.8) % Plt Count 209 (150-400) X10^3/uL Neut % (Auto) 77.2 H (50-75) % Lymph % (Auto) 16.2 L (25-40) % Wallace % (Auto) 4.0 (3-14) % Eos % (Auto) 2.1 (2-4) % Baso % (Auto) 0.5 (0-2) % Neut # (Auto) 9100 H (8866-6625) /uL Lymph # (Auto) 1900 (6920-3086) /uL Wallace # (Auto) 500 (0-900) /uL Eos # (Auto) 300 (0-450) /uL Baso # (Auto) 100 (0-100) /uL PT 11.1 (9.4-12.5) SECONDS INR 1.0 (0.9-1.3) APTT 23 L (25.1-36.5) SECONDS Sodium 137 (137-145) mmol/L Potassium 3.5 (3.4-5.1) mmol/L Chloride 102 (98-107) mmol/L Carbon Dioxide 25 (22-32) mmol/L BUN 9 (7-17) mg/dL Creatinine 0.81 (0.52-1.04) mg/dL Estimated GFR > 60 (>60) mL/min BUN/Creatinine Ratio 11.1 (6-22) Glucose 157 H (70-100) mg/dL Lactate 3.4 H (0.7-2.1) mmol/L Calcium 9.6 (8.4-10.2) mg/dL Total Bilirubin 0.6 (0.2-1.3) mg/dL AST 23 (14-36) IU/L ALT 16 (<35) IU/L Alkaline Phosphatase 78 (38-126) U/L Total Creatine Kinase 20 L (30-135) U/L Troponin I < 0.012 (0.01-0.034) ng/mL Total Protein 7.2 (6.3-8.2) g/dL Albumin 3.9 (3.5-5.0) g/dL Globulin 3.3 (1.7-4.1) g/dL Albumin/Globulin Ratio 1.2 (1.0-2.8) Lipase 118 (23-300) U/L Procalcitonin 0.06 (<0.5) ng/mL Stl C. cayetanensis PCR Not detected (Not Detect) Stool Rotavirus (PCR) Not detected (Not Detect) Stool Adenovirus (PCR) Not detected (Not Detect) Stool Astrovirus (PCR) Not detected (Not Detect) Stool Cryptosporidium PCR Not detected (Not Detect) Stl E.coli Shiga Tox PCR Not detected (Not Detect) St Sh/Enteroin Ecoli PCR Not detected (Not Detect) Stl Enterotoxigenic E PCR Not detected (Not Detect) Stool EPEC (PCR) Not detected (Not Detect) Stl E. histolytica PCR Not detected (Not Detect) Stool Giardia Lamblia PCR Not detected (Not Detect) Stool Sapovirus (PCR) Not detected (Not Detect) Stl P. shigelloides PCR Not detected (Not Detect) St Y.enterocolitica PCR Not detected (Not Detect) Stool Vibrio (PCR) Not detected (Not Detect) Stl Vibrio cholerae PCR Not detected (Not Detect) Stl Enteroaggr Ecoli PCR Not detected (Not Detect) Stl Norovirus GI/GII PCR Not detected (Not Detect) Salicylates < 1.0 (<20) mg/dL Acetaminophen < 10 (10-30) ug/mL Ethyl Alcohol < 10 ( - 10) mg/dL Campylobacter (PCR) Not detected (Not Detect) C. difficile Tox (PCR) Not detected (Not Detect) SARS-CoV-2 (PCR) Negative (Negative) Salmonella (PCR) Not detected (Not Detect) 04/10/23 04/10/23 Range/Units 15:55 18:13 WBC (4.5-11.0) X10^3/uL RBC (4.0-5.2) X10^6/uL Hgb (12.0-16.0) g/dL Hct (36-46) % MCV (80-100) fL MCH (26-34) PG MCHC (30-36) % RDW (11.6-14.8) % Plt Count (150-400) X10^3/uL Neut % (Auto) (50-75) % Lymph % (Auto) (25-40) % Wallace % (Auto) (3-14) % Eos % (Auto) (2-4) % Baso % (Auto) (0-2) % Neut # (Auto) (9875-1019) /uL Lymph # (Auto) (7189-9495) /uL Wallace # (Auto) (0-900) /uL Eos # (Auto) (0-450) /uL Baso # (Auto) (0-100) /uL PT (9.4-12.5) SECONDS INR (0.9-1.3) APTT (25.1-36.5) SECONDS Sodium (137-145) mmol/L Potassium (3.4-5.1) mmol/L Chloride (98-107) mmol/L Carbon Dioxide (22-32) mmol/L BUN (7-17) mg/dL Creatinine (0.52-1.04) mg/dL Estimated GFR (>60) mL/min BUN/Creatinine Ratio (6-22) Glucose (70-100) mg/dL Lactate 3.0 H 2.3 H (0.7-2.1) mmol/L Calcium (8.4-10.2) mg/dL Total Bilirubin (0.2-1.3) mg/dL AST (14-36) IU/L ALT (<35) IU/L Alkaline Phosphatase (38-126) U/L Total Creatine Kinase (30-135) U/L Troponin I (0.01-0.034) ng/mL Total Protein (6.3-8.2) g/dL Albumin (3.5-5.0) g/dL Globulin (1.7-4.1) g/dL Albumin/Globulin Ratio (1.0-2.8) Lipase (23-300) U/L Procalcitonin (<0.5) ng/mL Stl C. cayetanensis PCR (Not Detect) Stool Rotavirus (PCR) (Not Detect) Stool Adenovirus (PCR) (Not Detect) Stool Astrovirus (PCR) (Not Detect) Stool Cryptosporidium PCR (Not Detect) Stl E.coli Shiga Tox PCR (Not Detect) St Sh/Enteroin Ecoli PCR (Not Detect) Stl Enterotoxigenic E PCR (Not Detect) Stool EPEC (PCR) (Not Detect) Stl E. histolytica PCR (Not Detect) Stool Giardia Lamblia PCR (Not Detect) Stool Sapovirus (PCR) (Not Detect) Stl P. shigelloides PCR (Not Detect) St Y.enterocolitica PCR (Not Detect) Stool Vibrio (PCR) (Not Detect) Stl Vibrio cholerae PCR (Not Detect) Stl Enteroaggr Ecoli PCR (Not Detect) Stl Norovirus GI/GII PCR (Not Detect) Salicylates (<20) mg/dL Acetaminophen (10-30) ug/mL Ethyl Alcohol ( - 10) mg/dL Campylobacter (PCR) (Not Detect) C. difficile Tox (PCR) (Not Detect) SARS-CoV-2 (PCR) (Negative) Salmonella (PCR) (Not Detect) Urine Dip Bedside Urine Glucose 1000 mg/dl Bedside Urine Bilirubin - Negative Bedside Urine Ketone - Negative Urine Specific [place] 1.015 Bedside Urine Occult Blood - Negative Bedside Urine pH 6.0 Bedside Urine Protein - Negative Bedside Urine Urobilinogen - Negative Bedside Urine Nitrite - Negative Bedside Urine Leukocytes - Negative Esterase Imaging Data CT scan - abdomen/pelvis: Radiologist Impression: FINDINGS: Image quality: Excellent. Lung bases: Unremarkable. Heart: No significant findings. ABDOMEN: Liver: Small hepatic cysts. Gallbladder: Absent. Biliary ducts: No biliary dilation. Pancreas: No ductal dilation. Spleen: Size is within normal limits. Adrenal Glands: No adrenal nodules. Kidneys and Ureters: No hydronephrosis. No solid mass. No complex renal cystic lesion which requires follow up. Stomach and Bowel: Liquid stool contents throughout the colon. Suspect mural enhancement. Normal appendix. No small bowel obstruction. Peritoneum: No abnormal intraperitoneal fluid. No free air. Ventral Wall: No hernia. Abdominal Nodes: No retroperitoneal or mesenteric adenopathy by size criteria. Vessels: Aorta and inferior vena cava are normal in size. PELVIS: Pelvic Organs: Uterus is absent. Bladder: No stone. Pelvic Nodes: No enlarged lymph nodes. Miscellaneous: No inguinal hernias are seen. Bones: L5-S1 pedicle screw fixation with intervertebral body spacer. No compression fracture. No suspicious osseous lesion. IMPRESSION: 1. Suspect colonic wall mural enhancement. Fluid throughout the colon. Findings most consistent with a colitis. 2. No small bowel obstruction. No free fluid. Dictated by: Harris Aguayo M.D. on 04/10/2023 at 19:28 MDM Narrative Medical decision making narrative: Patient 52-year-old female history of HIV type 2 diabetes depression anxiety previous history of overdose is presenting today with diarrhea headache. She recently started new diabetic medication side effect can be diarrhea. Her diarrhea was a little bit worse last night. She is no significant abdominal pain. She is no evidence of dehydration or electrolyte abnormality. She is mildly hypotensive blood pressure improved with IV fluids. She is afebrile no leukocytosis. Lactate is elevated 3.4 which improved to 3.0. She has chronic ongoing headaches he continues to have a headache. She says it starts in the back of her neck goes all the way up she is actually moving her neck very easily. She has no focal deficits. Her neck is supple She is been in the ED multiple hours she is only had 1 episode of diarrhea. She has absolutely no back pain or lower extremity weakness concern for cauda equina Blood work reviewed: WBC 11.8, hemoglobin 14.9 hematocrit 45, platelets 209, significant electrolyte abnormality creatinine 0.81 potassium 3.5 initial lactate 3.4 which improved to 3.0, negative troponin. Urinalysis negative GI panel unremarkable viral panel unremarkable , hospitalist updated patient's symptoms test results concern for some sort infection with ongoing elevated lactate and soft blood pressure. wants CT and then reconsulted -Dr. Flores updated patient's symptoms test results Care patient is assumed. Studies reviewed, patient independently evaluated. CT scan suggests probable colitis with no acute surgical abnormalities appreciated. Lactic acid has now come down from 3.4-3 0.0-2.3. Findings reviewed with patient. Discussed the use of Imodium which seem safe after workup that we have done today. We discussed hospitalization versus discharge home and with shared decision-making we decided that discharge home would be appropriate. Her most significant concern is why she is stooling herself in the middle of the night and I explained that, while that is an excellent question that does need an answer, she likely is going to need to discuss that with a editor managing director and probably will need a colonoscopy. Knowing that her stool PCR studies are unremarkable, that her CT scan does not show any acute surgical abnormalities and does suggest mild inflammation in the colon consistent with colitis that she would be safe for discharge. Her lactic level continues to come down and I think represents dehydration rather than any type of overwhelming infection. Reviewed with her the reasons to return to the emergency department also clearly reviewed with her dosing for Imodium to try to help with the diarrhea to slow volumes down which then fully will help with maintaining more appropriate hydration. She does complain that she is weak but then also notes she has not really had any food for the last 5 days. She understands the need for fuel in her body to have a bit more energy. We also talked about adding probiotics. Exam at time of discharge reveals no headache, no fevers, blood pressure 124/72, no abdominal pain and certainly not an acute surgical abdomen. She will follow up with her primary care doctor, questions are answered she is safe for discharge Discharge Plan Departure Patient Disposition: Home Clinical Impression: Colitis, Acute dehydration Diarrhea Qualifiers: Diarrhea type: unspecified type Qualified Code(s): R19.7 - Diarrhea, unspecified Instructions: DI for Colitis Activity Restrictions/Additional Instructions: Thank you for coming in today There is no evidence of acute bacterial infection or sepsis at this time You are slightly dehydrated and did respond nicely to fluids that were given Your CT scan shows colitis without any surgical abnormalities. Your stool study does not show any significant pathologic bacteria or viruses causing your symptoms. It is okay to use Imodium you can use 1 pill every time you have a loose stool up to a total of 6 pills per day. You are given an initial dose in the emergency department of to pills. Make sure that you do not take too much Imodium because it can cause significant constipation. Imodium is available [id number] to help with diarrhea. I would recommend following up with your primary care doctor. If the diarrhea continues you may need referral to Gastroenterology and a workup for chronic diarrhea including colonoscopy. If you find that you are getting worse or develop any new symptoms, please feel free to return to the emergency department for further evaluation. Prescriptions: No Action nitrofurantoin monohyd/m-cryst 100 mg capsule 100 mg PO BID Qty: 20 0RF Rx Instructions: must administer with a meal/food phenazopyridine [Pyridium] 200 mg tablet 200 mg PO TID PRN (Reason: pain) Qty: 20 0RF estradiol 1 mg tablet 1 mg PO DAILY Qty: 90 3RF atorvastatin 20 mg tablet 20 mg PO DAILY cetirizine 10 mg Tablet 10 mg PO DAILY clonazepam 1 mg tablet 2 mg PO QAM clonazepam 1 mg Tablet 1.5 mg PO BEDTIME gabapentin 800 mg tablet 800 mg PO BID trazodone 150 mg tablet 150 mg PO BEDTIME metformin 1,000 mg Tablet 1,000 mg PO BIDWMEAL ondansetron 4 mg tablet,disintegrating 4 mg PO 4XD PRN (Reason: nausea/vomiting) Patient Comments: DISSOLVE 1 tablet ON TONGUE 3 TO 4 TIMES DAILY if needed FOR NAUSEA AND VOMITING prazosin 2 mg Capsule 2 mg PO BEDTIME spironolactone 50 mg tablet 50 mg PO QAM metoclopramide HCl 10 mg tablet 10 mg PO 4XD atomoxetine 40 mg capsule 40 mg PO QAM buprenorphine-naloxone 2-0.5 mg tablet, sublingual 4 tab SUBLINGUAL DAILY propranolol 80 mg Capsule,Extended Release 24hr 80 mg PO DAILY dexlansoprazole [Dexilant] 60 mg Capsule,Biphase Delayed Releas 60 mg PO DAILY Jardiance 10 mg Tablet 10 mg PO QAM Triumeq 600-50-300 mg tablet 1 tab PO DAILY Referrals: Nidhi Faustin DO [Primary Care Provider] - Stand Alone Forms: Patient Portal/API
[2023-04-10 15:10] LABS: COVID19 -Nasal RAPID Negative (Negative)
[2023-04-10] MEDS: MORPHINE 4 MG/ML INJ IV (15:15)
[2023-04-10] MEDS: SODIUM CHLORIDE 0.9% 1,986 ML 662 ML IV (15:22)
[2023-04-10 15:30] LABS: Acetaminophen < 10 ug/mL (10-30); Ethanol (ETOH) < 10 mg/dL; Salicylate < 1.0 mg/dL (<20)
[2023-04-10 15:46] LABS: Reflexed Lactate in 2 Hours Y
[2023-04-10] MEDS: HYDROMORPHONE 1 MG INJ IV (17:48)
[2023-04-10 18:08] LABS: Adenovirus F 40/41 Not Detected (Not Detect); Astrovirus Not Detected (Not Detect); Campylobacter Not Detected (Not Detect); Clostridium difficile toxin AB Not Detected (Not Detect); Cryptosporidium Not Detected (Not Detect); Cyclospora cayetanensis Not Detected (Not Detect); Entamoeba histolytica Not Detected (Not Detect); Enteroaggregative E.coli Not Detected (Not Detect); Enteropathogenic E.coli Not Detected (Not Detect); Enterotoxigenic E.coli It/st Not Detected (Not Detect); Giardia lamblia Not Detected (Not Detect); Norovirus GI/GII Not Detected (Not Detect); Plesiomonsa shigelloides Not Detected (Not Detect); Rotavirus A Not Detected (Not Detect); Salmonella Not Detected (Not Detect); Sapovirus Not Detected (Not Detect); Shiga-like toxin-prod E.coli Not Detected (Not Detect); Shigella/Enteroinvasive E.coli Not Detected (Not Detect); Vibrio Not Detected (Not Detect); Vibrio cholerae Not Detected (Not Detect); Yersinia enterocolitica Not Detected (Not Detect)
[2023-04-10 18:39] LABS: Lactate (Lactic Acid) 2.3 mmol/L (0.7-2.1)
--- NOTE | 2023-04-10 18:45 | DI.CT.S_ITS ---
PROCEDURE: CT ABDOMEN PELVIS W CON INDICATIONS: diarrhea concern for infection TECHNIQUE: After the administration of IV contrast, axial sections were acquired from the lung bases to the pubic symphysis. Coronal and sagittal reformats were performed. For radiation dose reduction, the following was used: automated exposure control, adjustment of mA and/or kV according to patient size. COMPARISON: [facility], CT, CT ABDOMEN PELVIS W CON, 08/06/2022, 22:31. FINDINGS: Image quality: Excellent. Lung bases: Unremarkable. Heart: No significant findings. ABDOMEN: Liver: Small hepatic cysts. Gallbladder: Absent. Biliary ducts: No biliary dilation. Pancreas: No ductal dilation. Spleen: Size is within normal limits. Adrenal Glands: No adrenal nodules. Kidneys and Ureters: No hydronephrosis. No solid mass. No complex renal cystic lesion which requires follow up. Stomach and Bowel: Liquid stool contents throughout the colon. Suspect mural enhancement. Normal appendix. No small bowel obstruction. Peritoneum: No abnormal intraperitoneal fluid. No free air. Ventral Wall: No hernia. Abdominal Nodes: No retroperitoneal or mesenteric adenopathy by size criteria. Vessels: Aorta and inferior vena cava are normal in size. PELVIS: Pelvic Organs: Uterus is absent. Bladder: No stone. Pelvic Nodes: No enlarged lymph nodes. Miscellaneous: No inguinal hernias are seen. Bones: L5-S1 pedicle screw fixation with intervertebral body spacer. No compression fracture. No suspicious osseous lesion. IMPRESSION: 1. Suspect colonic wall mural enhancement. Fluid throughout the colon. Findings most consistent with a colitis. 2. No small bowel obstruction. No free fluid. Dictated by: Harris Aguayo M.D. on 04/10/2023 at 19:28 Approved by: Harris Aguayo M.D. on 04/10/2023 at 19:34
[2023-04-10] MEDS: SODIUM CHLORIDE 0.9% 1,000 ML 1000 ML IV (19:13)
[2023-04-10 20:07] LABS: Reflexed Lactate in 2 Hours Y
--- NOTE | 2023-04-10 20:20 | PC.NURSE ---
Dr. Flores declined reflex lactate (4th). Pt improved and being discharged.
[2023-04-10] MEDS: LOPERAMIDE 2 MG CAPSULE 4 MG PO (20:22)
== END 2023-04-10 20:52 | disposition home or self-care (01) ==
PROVIDERS: Emergency Provider Emergency Medicine; PCP Family Medicine
DX: K52.9 Noninfective gastroenteritis and colitis, unspecified (principal); E86.0 Dehydration; M54.2 Cervicalgia; Z79.899 Other long term (current) drug therapy; Z20.822 Contact with and (suspected) exposure to COVID-19
CPT/HCPCS: 36415; 71045; 74177; 80053; 80320; 80329; 81003; 82550; 83605; 83690; 84145; 84484; 85025; 85610; 85730; 87040; 87507; 87635; 93005; 93010; 96361; 96374; 96375; 96376; 99284; 99285; C9803; G0480; J1170; J1885; J2270; J2405; Q9967

== ENCOUNTER 2023-05-20 12:23 | Emergency (ER) | payer MEDICARE, OTHER, SELFPAY ==
[2022-09-14 16:30] VITALS: BMI 32.2
[2023-05-20 12:38] VITALS: BP 135/60; PULSE 94; RESP 20; TEMP 36.4; O2SAT 99; BMI 24.6
[2023-05-20 13:06] LABS: Add Manual Diff / Slide Review NO; Basophils Absolute Auto 100 /uL (0-100); Basophils Percent Auto 0.7 % (0-2); Eosinophils Absolute Auto 200 /uL (0-450); Eosinophils Percent Auto 1.6 % (2-4); Hematocrit 45.8 % (36-46); Hemoglobin 15.4 g/dL (12.0-16.0); Lymphocytes Absolute Auto 2300 /uL (1100-4500); Mean Corpuscular HGB Conc 33.7 % (30-36); Mean Corpuscular Hemoglobin 30.7 PG (26-34); Mean Corpuscular Volume 91.1 fL (80-100); Monocytes Absolute Auto 300 /uL (0-900); Monocytes Percent Auto 3.4 % (3-14); Neutrophils Absolute Auto 6900 /uL (1500-7000); Neutrophils Percent Auto 70.3 % (50-75); Platelet Count 232 X10^3/uL (150-400); Red Blood Cell Count 5.03 X10^6/uL (4.0-5.2); Red Cell Distribution Width 14.8 % (11.6-14.8); White Blood Cell Count 9.8 X10^3/uL (4.5-11.0)
[2023-05-20] MEDS: ONDANSETRON 4 MG/2 ML INJ IV (13:09)
[2023-05-20 13:19] LABS: Alanine Aminotransferase 18 IU/L (<35); Albumin 4.3 g/dL (3.5-5.0); Albumin Globulin Ratio 1.1 (1.0-2.8); Alkaline Phosphatase 71 U/L (38-126); Aspartate Aminotransferase 28 IU/L (14-36); BUN Creatinine Ratio 17.1 (6-22); Bilirubin Total 0.7 mg/dL (0.2-1.3); Blood Urea Nitrogen 12 mg/dL (7-17); Calcium 9.9 mg/dL (8.4-10.2); Carbon Dioxide 25 mmol/L (22-32); Chloride 104 mmol/L (98-107); Estimated Glomerular Filt Rate > 60 mL/min (>60); Globulin 3.8 g/dL (1.7-4.1); Glucose 162 mg/dL (70-100); HEMOLYSIS 44 (0-50); Lipase 110 U/L (23-300); Potassium 4.6 mmol/L (3.4-5.1); Sodium 138 mmol/L (137-145); Total Protein 8.1 g/dL (6.3-8.2)
[2023-05-20 13:37] LABS: COVID-19 CEPHEID 4-PLEX PCR Negative (Negative); Influenza A - CEPHEID Flu A NEGATIVE (NEGATIVE); Influenza B - CEPHEID Flu B NEGATIVE (NEGATIVE); Respiratory Syncytial Virus Negative (Negative)
[2023-05-20] MEDS: ACETAMINOPHEN IV 1,000 MG/100 ML VIAL 400 MG IV (14:45)
[2023-05-20] MEDS: SODIUM CHLORIDE 0.9% 1,000 ML 1000 ML IV (14:45)
--- NOTE | 2023-05-20 16:59 | ED.NAVMDI ---
HPI - Nausea/Vomiting/Diarrhea General Chief complaint: Nausea/Vomiting/Diarrhea Stated complaint: sent by pcp diarrhea t-30, upper resp Time Seen by Provider: 05/20/23 17:31 Source: patient Mode of arrival: Wheelchair History of Present Illness HPI Narrative: Patient is a 52-year-old female history of insulin-dependent diabetes well-controlled HIV hyperlipidemia depression anxiety bipolar presenting today with ongoing nausea vomiting and dizziness. She reports that it all started back January. She has seen her PCP who referred her to a GI specialist she can not see until May 27. For the last 3 months she has been unable to get out of bed every time she gets out of bed she is little bit dizzy. She is able to meet eat minimal food she is lost significant weight. She was previously on Reglan but was told to stop it. Unclear if she is gastroparesis or not. She has been taking Zofran intermittently at home. She does not throw up every day but does throw up some days. She has not fallen. She has also had some intermittent incontinence stool. No fever or chills no chest pain or palpitations. No numbness tingling or weakness. Has been reports that she has been basically bedridden for 3 months. She gets up needs to hold onto the wall in order to walk. She is tearful daily. Related Data Home Medications Medication Instructions Recorded Confirmed abacavir 600 mg-dolutegravir 50 1 tab PO DAILY 09/14/22 10/15/22 mg-lamivudine 300 mg tablet (Triumeq) atomoxetine 40 mg capsule 40 mg PO QA 09/14/22 10/15/22 atorvastatin 20 mg tablet 20 mg PO DAILY 09/14/22 10/15/22 buprenorphine 2 mg-naloxone 0.5 mg 4 tab sublingual DAILY 09/14/22 10/15/22 sublingual tablet cetirizine 10 mg tablet 10 mg PO DAILY 09/14/22 10/15/22 clonazepam 1 mg tablet 1.5 mg PO BEDTIME 09/14/22 10/15/22 clonazepam 1 mg tablet 2 mg PO QAM 09/14/22 10/15/22 dexlansoprazole 60 mg 60 mg PO DAILY 09/14/22 10/15/22 capsule,biphase delayed release (Dexilant) empagliflozin 10 mg tablet 10 mg PO QA 09/14/22 10/15/22 (Jardiance) gabapentin 800 mg tablet 800 mg PO BID 09/14/22 10/15/22 metformin 1,000 mg tablet 1,000 mg PO BIDWMEAL 09/14/22 10/15/22 metoclopramide HCl 10 mg tablet 10 mg PO 4XD 09/14/22 10/15/22 ondansetron 4 mg disintegrating 4 mg PO 4XD PRN nausea/vomiting 09/14/22 10/15/22 tablet prazosin 2 mg capsule 2 mg PO BEDTIME 09/14/22 10/15/22 propranolol 80 mg capsule,extended 80 mg PO DAILY 09/14/22 10/15/22 release 24 hr spironolactone 50 mg tablet 50 mg PO QAM 09/14/22 10/15/22 trazodone 150 mg tablet 150 mg PO BEDTIME 09/14/22 10/15/22 Previous Rx's Medication Instructions Recorded nitrofurantoin 100 mg PO BID #20 caps 09/28/22 monohydrate/macrocrystals 100 mg capsule phenazopyridine 200 mg tablet 200 mg PO TID PRN pain #20 tabs 09/28/22 (Pyridium) estradiol 1 mg tablet 1 mg PO DAILY #90 tabs 12/15/22 ciprofloxacin HCl 500 mg tablet 500 mg PO BID #14 tabs 05/20/23 (Cipro) metoclopramide HCl 10 mg tablet 10 mg PO Q6H PRN nausea and 05/20/23 (Reglan) vomiting #20 tabs metronidazole 500 mg tablet 500 mg PO Q8H 7 days #21 tabs 05/20/23 omeprazole 20 mg capsule,delayed 20 mg PO DAILY #30 caps 05/20/23 release Allergies Allergy/AdvReac Type Severity Reaction Status Date / Time levofloxacin [LEVOFLOXACIN] Allergy Severe hives Verified 04/10/23 13:19 Sulfa (Sulfonamide Allergy Severe rash Verified 04/10/23 13:19 Antibiotics) [SULFA (SULFONAMIDE ANTIBIOTICS)] amoxicillin [From AUGMENTIN] Allergy Mild rash Verified 04/10/23 13:19 ciprofloxacin [From CIPRO] Allergy Mild rash Verified 04/10/23 13:19 clarithromycin [From BIAXIN] Allergy Mild rash Verified 04/10/23 13:19 clavulanic acid Allergy Mild rash Verified 04/10/23 13:19 [From AUGMENTIN] morphine [MORPHINE] AdvReac Mild n/v Verified 04/10/23 13:19 pregabalin [PREGABALIN] AdvReac Mild lost voice Verified 04/10/23 13:19 Patient History Medical History Retained ureteral stent Hx of osteoarthritis Hx of migraine headaches History of liver disease Kidney stone on left side Bipolar disorder Arthritis HIV (human immunodeficiency virus infection) History of gastrointestinal symptoms Anxiety Diabetes mellitus Hypertension GERD (gastroesophageal reflux disease) Fibroids Depression PTSD (post-traumatic stress disorder) Surgical History History of cystoscopy (2013) History of stress incontinence procedure using tension free vaginal tape (2013) S/P functional endoscopic sinus surgery (2002) Status post arthroscopy (2003) Status post cholecystectomy (2011) Status post laparoscopic supracervical hysterectomy (2011) Family History Father Diabetes mellitus Hypertension CVA (cerebral vascular accident) Mother Diabetes mellitus Hypertension CVA (cerebral vascular accident) Hearing impairment Brother Hypertension Social History marital status: number of children: 3 household members: spouse occupational status: disabled Smoking Status: Current every day smoker alcohol intake: never caffeine: Yes Type(s) of exercise: none Smoking Status: Current every day smoker tobacco type: cigarettes alcohol intake frequency: holidays/special occasions only Substance Use Type: marijuana Exam Initial Vital Signs Initial Vital Signs: Vital Signs Temperature 97.5 F L 05/20/23 12:38 Pulse Rate 94 H 05/20/23 12:38 Respiratory Rate 20 05/20/23 12:38 Blood Pressure 135/60 05/20/23 12:38 Pulse Oximetry 99 05/20/23 12:38 Oxygen Delivery Method Room Air 05/20/23 12:38 GENERAL: Alert 52-year-old female does appear thin in her face and and in no acute distress. HEENT: Head atraumatic,EOMI, pupils reactive, face symmetric, moist mucous membranes CARDIOVASCULAR: Regular rate and rhythm without murmurs, rubs or gallops. RESPIRATORY: Breath sounds equal bilaterally, no wheezes rales or rhonchi. ABDOMEN: Soft, nontender. Normoactive bowel sounds all 4 quadrants. No guarding or rebound. EXTREMITIES: Normal range of motion, no clubbing or edema. Neurovascularly intact NEUROLOGICAL: Alert and oriented x4.Normal gait and speech. Cranial nerves II through XII grossly intact. Good [id number], good [id number], strength equal bilaterally, no dysarthria or aphasia, sensation in tact to soft touch bilaterally, no visual changes, no facial droop SKIN: Warm, dry, no laceration, no petechiae, no rashes or lesions. Scores NIH Stroke Scale Level of Conciousness: Alert, keenly responsive Ask month/age: Answers both questions correctly. Open/close eyes, close hand: Performs both tasks correctly Best gaze horizontal: Normal Visual kothari: No visual loss Facial palsy: Normal symetrical movement Left arm drift: No drift for full 10 sec Right arm drift: No drift for full 10 sec Left leg drift: No drift for full 5 sec Right leg drift: No drift for full 5 sec Limb ataxia: Absent Sensory on face/arms/legs: Normal, no sensory loss Best language: No aphasia, normal Dysarthria: Normal Extinction or inattention: No abnormality Total NIH Stroke scale score: 0 Course Orders Ordered: ED Orders 05/20/23 12:45 EKG-12 Lead Stat 05/20/23 12:50 Covid-19 + FLU A/B + RSV - PCR Stat 05/20/23 12:55 Complete Blood Count AUTO DIFF Stat Comprehensive Metabolic Panel Stat Lipase Stat 05/20/23 17:42 CT head/brain wo con Stat Discontinued Medications Hydromorphone HCl (Hydromorphone 0.5 Mg Inj) 0.5 mg IV NOW ONE Stop: 05/20/23 18:04 Last Admin: 05/20/23 18:08 Dose: 0.5 mg Documented By: GABI Sodium Chloride (Normal Saline 0.9%) 1,000 mls @ 1,000 mls/hr IV BOLUS ONE Stop: 05/20/23 15:32 Last Infusion: 05/20/23 16:19 Dose: Infused Documented By: Admin: 05/20/23 14:45 Dose: 1,000 mls/hr Documented By: GABI Acetaminophen (Ofirmev) 1,000 mg in 100 mls @ 400 mls/hr IV NOW ONE Stop: 05/20/23 14:47 Last Infusion: 05/20/23 15:05 Dose: Infused Documented By: Admin: 05/20/23 14:45 Dose: 400 mls/hr Documented By: GABI Ondansetron HCl (Ondansetron 4 Mg/2 Ml Inj) 4 mg IV NOW PRN PRN Reason: Nausea And Vomiting Last Admin: 05/20/23 13:09 Dose: 4 mg Documented By: TONA Ondansetron HCl (Ondansetron 4 Mg Odt) 4 mg PO NOW PRN PRN Reason: Nausea And Vomiting Vital Signs Vital signs: Vital Signs - 8 hr 05/20/23 12:38 05/20/23 18:30 Temperature 97.5 F L Pulse Rate 94 H 70 Respiratory Rate 20 12 Blood Pressure 135/60 129/67 Pulse Oximetry 99 98 Oxygen Delivery Method Room Air Room Air MDM - Nausea/Vomiting/Diarrhea Lab Data 05/20/23 12:55 05/20/23 12:55 Labs: Lab Results 05/20/23 05/20/23 Range/Units 12:50 12:55 WBC 9.8 (4.5-11.0) X10^3/uL RBC 5.03 (4.0-5.2) X10^6/uL Hgb 15.4 (12.0-16.0) g/dL Hct 45.8 (36-46) % MCV 91.1 (80-100) fL MCH 30.7 (26-34) PG MCHC 33.7 (30-36) % RDW 14.8 (11.6-14.8) % Plt Count 232 (150-400) X10^3/uL Neut % (Auto) 70.3 (50-75) % Lymph % (Auto) 24.0 L (25-40) % [place] % (Auto) 3.4 (3-14) % Eos % (Auto) 1.6 L (2-4) % Baso % (Auto) 0.7 (0-2) % Neut # (Auto) 6900 (2442-8102) /uL Lymph # (Auto) 2300 (2513-7143) /uL [place] # (Auto) 300 (0-900) /uL Eos # (Auto) 200 (0-450) /uL Baso # (Auto) 100 (0-100) /uL Sodium 138 (137-145) mmol/L Potassium 4.6 (3.4-5.1) mmol/L Chloride 104 (98-107) mmol/L Carbon Dioxide 25 (22-32) mmol/L BUN 12 (7-17) mg/dL Creatinine 0.70 (0.52-1.04) mg/dL Estimated GFR > 60 (>60) mL/min BUN/Creatinine Ratio 17.1 (6-22) Glucose 162 H (70-100) mg/dL Calcium 9.9 (8.4-10.2) mg/dL Total Bilirubin 0.7 (0.2-1.3) mg/dL AST 28 (14-36) IU/L ALT 18 (<35) IU/L Alkaline Phosphatase 71 (38-126) U/L Total Protein 8.1 (6.3-8.2) g/dL Albumin 4.3 (3.5-5.0) g/dL Globulin 3.8 (1.7-4.1) g/dL Albumin/Globulin Ratio 1.1 (1.0-2.8) Lipase 110 (23-300) U/L SARS-CoV-2 (PCR) Negative (Negative) Influenza A (RT-PCR) Flu a negative (NEGATIVE) Influenza B (RT-PCR) Flu b negative (NEGATIVE) RSV (PCR) Negative (Negative) Urine Dip Bedside Urine Glucose 1000 mg/dl Bedside Urine Bilirubin - Negative Bedside Urine Ketone + 15 Urine Specific [place] 1.010 Bedside Urine Occult Blood - Negative Bedside Urine pH 6.5 Bedside Urine Protein - Negative Bedside Urine Urobilinogen - Negative Bedside Urine Nitrite - Negative Bedside Urine Leukocytes - Negative Esterase Imaging Data CT scan - head: Radiologist's Impression: PROCEDURE: CT HEAD/BRAIN WO CON INDICATIONS: constant dizziness TECHNIQUE: Noncontrast 4.5 mm thick angled axial sections acquired from the foramen magnum to the vertex, with coronal and sagittal reformats. For radiation dose reduction, the following was used: automated exposure control, adjustment of mA and/or kV according to patient size. COMPARISON: [facility], CT, CT HEAD/BRAIN WO CON, 09/14/2022, 15:55. FINDINGS: Image quality: Diagnostic. CSF spaces: Basal cisterns are patent. No extra-axial fluid collections. Ventricles are normal in size and shape. Brain: No midline shift. No intracranial masses or hemorrhage. Sunshine-white matter interface is normal. Skull and face: Calvarium and visualized facial bones are intact, without suspicious lesions. Sinuses: Visualized sinuses and mastoids are clear. IMPRESSION: No acute intracranial pathology. Dictated by: Everett Russell M.D. on 05/20/2023 at 18:33 MDM Narrative Medical decision making narrative: Patient 52-year-old female chronic multiple medical problems presenting today with ongoing nausea vomiting diarrhea for 3 months. It does not seem to be worse today. He previously had an abdominal CT last month which did show colitis. At that time she was also hypotensive with an elevated lactate. Today her vitals are stable Blood work has been reviewed she has no leukocytosis, no electrolyte abnormality evidence of DKA or BURKE Head CT was done no acute mass Discussion with patient's and patient. They have an appointment with GI next week. I think reasonable to restart her on some Reglan. Possibly some Cipro and Flagyl for colitis. Although she is not having severe abdominal pain she continues to have some. At this time does not meet any sort of admission criteria. She does require further outpatient treatment. Discharge Plan Departure Patient Disposition: Home Clinical Impression: Colitis Instructions: DI for Colitis Activity Restrictions/Additional Instructions: *You have been diagnosed with colitis *What to do: At this time it is unclear why you continue to have ongoing nausea and vomiting. I am happy to hear that you are going to GI next week. Let us restart you on Reglan and try some antibiotics to see if it helps your pain *Continue to take medications as directed--> [facility] Tra drug Reglan 25 mg every 6 hours if needed for nausea or vomiting Cipro 500 mg twice a day for 7 days Flagyl 500 mg 3 times a day for 7 days Omeprazole 20 mg once a day *Follow up with your primary care provider in 2-3 days or call [phone] *Return to ER if you should have increasing [or] any new, worsening or concerning symptoms Prescriptions: New metoclopramide HCl [Reglan] 10 mg tablet 10 mg PO Q6H PRN (Reason: nausea and vomiting) Qty: 20 0RF metronidazole 500 mg tablet 500 mg PO Q8H 7 Days Qty: 21 0RF ciprofloxacin HCl [Cipro] 500 mg tablet 500 mg PO BID Qty: 14 0RF omeprazole 20 mg capsule,delayed release(DR/EC) 20 mg PO DAILY Qty: 30 0RF No Action nitrofurantoin monohyd/m-cryst 100 mg capsule 100 mg PO BID Qty: 20 0RF Rx Instructions: must administer with a meal/food phenazopyridine [Pyridium] 200 mg tablet 200 mg PO TID PRN (Reason: pain) Qty: 20 0RF estradiol 1 mg tablet 1 mg PO DAILY Qty: 90 3RF atorvastatin 20 mg tablet 20 mg PO DAILY cetirizine 10 mg Tablet 10 mg PO DAILY clonazepam 1 mg tablet 2 mg PO QAM clonazepam 1 mg Tablet 1.5 mg PO BEDTIME gabapentin 800 mg tablet 800 mg PO BID trazodone 150 mg tablet 150 mg PO BEDTIME metformin 1,000 mg Tablet 1,000 mg PO BIDWMEAL ondansetron 4 mg tablet,disintegrating 4 mg PO 4XD PRN (Reason: nausea/vomiting) Patient Comments: DISSOLVE 1 tablet ON TONGUE 3 TO 4 TIMES DAILY if needed FOR NAUSEA AND VOMITING prazosin 2 mg Capsule 2 mg PO BEDTIME spironolactone 50 mg tablet 50 mg PO QAM metoclopramide HCl 10 mg tablet 10 mg PO 4XD atomoxetine 40 mg capsule 40 mg PO QAM buprenorphine-naloxone 2-0.5 mg tablet, sublingual 4 tab SUBLINGUAL DAILY propranolol 80 mg Capsule,Extended Release 24hr 80 mg PO DAILY dexlansoprazole [Dexilant] 60 mg Capsule,Biphase Delayed Releas 60 mg PO DAILY Jardiance 10 mg Tablet 10 mg PO QAM Triumeq 600-50-300 mg tablet 1 tab PO DAILY Referrals: Nidhi Faustin DO [Primary Care Provider] - Stand Alone Forms: Patient Portal/API
--- NOTE | 2023-05-20 17:42 | DI.CT.S_ITS ---
PROCEDURE: CT HEAD/BRAIN WO CON INDICATIONS: constant dizziness TECHNIQUE: Noncontrast 4.5 mm thick angled axial sections acquired from the foramen magnum to the vertex, with coronal and sagittal reformats. For radiation dose reduction, the following was used: automated exposure control, adjustment of mA and/or kV according to patient size. COMPARISON: Located [facility], CT, CT HEAD/BRAIN WO CON, 09/14/2022, 15:55. FINDINGS: Image quality: Diagnostic. CSF spaces: Basal cisterns are patent. No extra-axial fluid collections. Ventricles are normal in size and shape. Brain: No midline shift. No intracranial masses or hemorrhage. Sunshine-white matter interface is normal. Skull and face: Calvarium and visualized facial bones are intact, without suspicious lesions. Sinuses: Visualized sinuses and mastoids are clear. IMPRESSION: No acute intracranial pathology. Dictated by: Everett Russell M.D. on 05/20/2023 at 18:33 Approved by: Everett Russell M.D. on 05/20/2023 at 18:35
[2023-05-20] MEDS: HYDROMORPHONE 0.5 MG INJ IV (18:08)
[2023-05-20 18:30] VITALS: BP 129/67; PULSE 70; RESP 12; O2SAT 98
== END 2023-05-20 19:00 | disposition home or self-care (01) ==
PROVIDERS: Emergency Provider Emergency Medicine; PCP Family Medicine
DX: K52.9 Noninfective gastroenteritis and colitis, unspecified (principal); R42 Dizziness and giddiness; B20 Human immunodeficiency virus [HIV] disease; Z79.899 Other long term (current) drug therapy; Z20.822 Contact with and (suspected) exposure to COVID-19
CPT/HCPCS: 0241U; 36415; 70450; 80053; 81003; 83690; 85025; 93005; 96365; 96375; 99284; J0136; J1170; J2405

== ENCOUNTER 2023-06-14 09:36 | Emergency (ER) | payer MEDICARE, OTHER, SELFPAY ==
[2022-09-14 16:30] VITALS: BMI 32.2
[2023-06-14] VITALS (8 sets, daily range): BP systolic 109–130; BP diastolic 60–72; PULSE 84–92; RESP 19; TEMP 37.1; O2SAT 95–99; BMI 24.7
--- NOTE | 2023-06-14 09:45 | DI.RAD.S_ITS ---
PROCEDURE: XR RIBS LT MIN 3V W CXR1V INDICATIONS: left rib pain TECHNIQUE: 2 views of the ribs were acquired, along with a single view chest. COMPARISON: None. FINDINGS: Surgical changes and devices: Cholecystectomy clips. Bones and chest wall: No fractures or dislocations. No suspicious bony lesions. Overlying soft tissues appear unremarkable. Lungs and pleura: No pleural effusions or pneumothorax. Lungs appear clear. Mediastinum: Mediastinal contours appear normal. Heart size is normal. IMPRESSION: No displaced rib fracture or pneumothorax. Dictated by: Fe Light MD, PhD on 06/14/2023 at 10:24 Approved by: Fe Light MD, PhD on 06/14/2023 at 10:28
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
[2023-06-14] MEDS: ONDANSETRON 4 MG ODT SL (10:54)
[2023-06-14] MEDS: OXYCODONE IR 5 MG TABLET PO (10:54)
== END 2023-06-14 11:28 | disposition home or self-care (01) ==
PROVIDERS: Emergency Provider Emergency Medicine; PCP Family Medicine
DX: S20.212A Contusion of left front wall of thorax, initial encounter (principal); X58.XXXA Exposure to other specified factors, initial encounter; Y93.89 Activity, other specified
CPT/HCPCS: 71101; 99283

== ENCOUNTER 2023-07-11 08:32 | Emergency (ER) | payer MEDICARE, OTHER, SELFPAY ==
[2022-09-14 16:30] VITALS: BMI 32.2
[2023-07-11] VITALS (7 sets, daily range): BP systolic 115–136; BP diastolic 64–83; PULSE 72–82; RESP 14–16; TEMP 36.4–36.9; O2SAT 93–99; BMI 25.1
--- NOTE | 2023-07-11 08:40 | DI.RAD.S_ITS ---
PROCEDURE: XR KUB INDICATIONS: CONSTIPATION X 7 DAYS TECHNIQUE: One view of the abdomen acquired. COMPARISON: , CR, XR KUB, 10/02/2022, 11:41. FINDINGS: Surgical changes and devices: Right upper quadrant surgical clips. Lower lumbar posterior hardware fixation. Bowel: Bowel gas pattern is nonobstructive. Soft tissues: No suspicious abdominal calcifications. Visualized solid organ contours appear normal in size. Bones: No suspicious bony lesions. IMPRESSION: Nonobstructive bowel gas pattern. Approved by: Hope Parker M.D. on 07/11/2023 at 8:13
--- NOTE | 2023-07-11 08:41 | ED_ITS ---
HPI - Abdominal Pain General Chief Complaint: Abdominal Pain Stated Complaint: unable to have a bowel movement T-7 Time Seen by Provider: 07/11/23 08:33 Source: patient and family Mode of arrival: Ambulatory History of Present Illness HPI narrative: 52-year-old female with history of insulin-dependent diabetes, HIV, depression, anxiety, bipolar disorder, gastroparesis presents by private vehicle from home for 7 days constipation. Patient states she recently started Linzess from her GI doctor. Patient tried taking Ex-Lax yesterday without production of the bowel movement. Decided to present today due to generalized abdominal pain. Patient reports colonoscopy 1 month prior. She states that a precancerous polyp was removed and GI doctor noted generalized chronic inflammation, but no other abnormal findings. Related Data Home Medications Medication Instructions Recorded Confirmed abacavir 600 mg-dolutegravir 50 1 tab PO DAILY 09/14/22 10/15/22 mg-lamivudine 300 mg tablet (Triumeq) atomoxetine 40 mg capsule 40 mg PO QAM 09/14/22 10/15/22 atorvastatin 20 mg tablet 20 mg PO DAILY 09/14/22 10/15/22 buprenorphine 2 mg-naloxone 0.5 mg 4 tab sublingual DAILY 09/14/22 10/15/22 sublingual tablet cetirizine 10 mg tablet 10 mg PO DAILY 09/14/22 10/15/22 clonazepam 1 mg tablet 1.5 mg PO BEDTIME 09/14/22 10/15/22 clonazepam 1 mg tablet 2 mg PO QAM 09/14/22 10/15/22 dexlansoprazole 60 mg 60 mg PO DAILY 09/14/22 10/15/22 capsule,biphase delayed release (Dexilant) empagliflozin 10 mg tablet 10 mg PO QAM 09/14/22 10/15/22 (Jardiance) gabapentin 800 mg tablet 800 mg PO BID 09/14/22 10/15/22 metformin 1,000 mg tablet 1,000 mg PO BIDWMEAL 09/14/22 10/15/22 metoclopramide HCl 10 mg tablet 10 mg PO 4XD 09/14/22 10/15/22 ondansetron 4 mg disintegrating 4 mg PO 4XD PRN nausea/vomiting 09/14/22 10/15/22 tablet prazosin 2 mg capsule 2 mg PO BEDTIME 09/14/22 10/15/22 propranolol 80 mg capsule,extended 80 mg PO DAILY 09/14/22 10/15/22 release 24 hr spironolactone 50 mg tablet 50 mg PO QAM 09/14/22 10/15/22 trazodone 150 mg tablet 150 mg PO BEDTIME 09/14/22 10/15/22 Previous Rx's Medication Instructions Recorded nitrofurantoin 100 mg PO BID #20 caps 09/28/22 monohydrate/macrocrystals 100 mg capsule phenazopyridine 200 mg tablet 200 mg PO TID PRN pain #20 tabs 09/28/22 (Pyridium) ciprofloxacin HCl 500 mg tablet 500 mg PO BID #14 tabs 05/20/23 (Cipro) metoclopramide HCl 10 mg tablet 10 mg PO Q6H PRN nausea and 05/20/23 (Reglan) vomiting #20 tabs omeprazole 20 mg capsule,delayed 20 mg PO DAILY #30 caps 05/20/23 release oxycodone 5 mg tablet 5 mg PO Q6H PRN pain #10 tabs 06/14/23 estradiol 1 mg tablet 1 mg PO DAILY #90 tabs 07/07/23 Allergies Allergy/AdvReac Type Severity Reaction Status Date / Time levofloxacin [LEVOFLOXACIN] Allergy Severe hives Verified 07/11/23 08:41 Sulfa (Sulfonamide Allergy Severe rash Verified 07/11/23 08:41 Antibiotics) [SULFA (SULFONAMIDE ANTIBIOTICS)] amoxicillin [From AUGMENTIN] Allergy Mild rash Verified 07/11/23 08:41 ciprofloxacin [From CIPRO] Allergy Mild rash Verified 07/11/23 08:41 clarithromycin [From BIAXIN] Allergy Mild rash Verified 07/11/23 08:41 clavulanic acid Allergy Mild rash Verified 07/11/23 08:41 [From AUGMENTIN] morphine [MORPHINE] AdvReac Mild n/v Verified 07/11/23 08:41 pregabalin [PREGABALIN] AdvReac Mild lost voice Verified 07/11/23 08:41 Review of Systems Review of Systems Narrative: Negative except as noted above Patient History Medical History Retained ureteral stent Hx of osteoarthritis Hx of migraine headaches History of liver disease Kidney stone on left side Bipolar disorder Arthritis HIV (human immunodeficiency virus infection) History of gastrointestinal symptoms Anxiety Diabetes mellitus Hypertension GERD (gastroesophageal reflux disease) Fibroids Depression PTSD (post-traumatic stress disorder) Surgical History History of stress incontinence procedure using tension free vaginal tape (2013) History of cystoscopy (2013) S/P functional endoscopic sinus surgery (2002) Status post arthroscopy (2003) Status post laparoscopic supracervical hysterectomy (2011) Status post cholecystectomy (2011) Family History Father Diabetes mellitus Hypertension CVA (cerebral vascular accident) Mother Diabetes mellitus Hypertension CVA (cerebral vascular accident) Hearing impairment Brother Hypertension Social History marital status: number of children: 3 household members: spouse occupational status: disabled Smoking Status: Current every day smoker alcohol intake: never caffeine: Yes Type(s) of exercise: none Smoking Status: Current every day smoker tobacco type: cigarettes alcohol intake frequency: holidays/special occasions only Substance Use Type: marijuana Exam Initial Vital Signs Initial Vital Signs: Vital Signs Temperature 97.6 F 07/11/23 08:38 Pulse Rate 79 07/11/23 08:38 Respiratory Rate 14 07/11/23 08:38 Blood Pressure 133/64 07/11/23 08:38 Pulse Oximetry 98 07/11/23 08:38 Oxygen Delivery Method Room Air 07/11/23 08:38 Const: Awake, alert, no acute distress, nontoxic appearing Cardiac: regular rate, regular rhythm RESP: unlabored, clear bilaterally, no wheezing GI: Soft, nontender, no rebound, no guarding MSK: Atraumatic, full range of motion, pulses equal Skin: Warm, Dry, intact, no rashes Neuro: AO x3, CN II-XII grossly intact, moves all extremities Course Orders Ordered: ED Orders 07/11/23 08:40 XR KUB Stat Discontinued Medications Glycerin (Glycerin Supp Adult 1 Supp) 1 each KS NOW ONE Stop: 07/11/23 09:13 Last Admin: 07/11/23 09:45 Dose: 1 each Documented By: TC Sodium Chloride (Normal Saline 0.9%) 1,000 mls @ 1,000 mls/hr IV BOLUS ONE Stop: 07/11/23 10:09 Last Admin: 07/11/23 09:19 Dose: 1,000 mls/hr Documented By: TC Lactulose (Lactulose 20 Gm/30 Ml Solution) 20 gm PO NOW ONE Stop: 07/11/23 08:40 Last Admin: 07/11/23 08:49 Dose: 20 gm Documented By: TC Metoclopramide HCl (Metoclopramide 10 Mg/2 Ml Inj) 10 mg IV NOW ONE Stop: 07/11/23 09:11 Last Admin: 07/11/23 09:19 Dose: 10 mg Documented By: TC Polyethylene Glycol (Polyethylene Glycol 3350 17 Gm Powd.Pack) 17 gm PO NOW ONE Stop: 07/11/23 08:40 Last Admin: 07/11/23 08:50 Dose: 17 gm Documented By: TC Polyethylene Glycol/Electrolytes (Qgb2067/Sod Sulf,Bicarb,Cl/Kcl 4,000 Ml Solution) 4,000 ml PO NOW ONE Stop: 07/11/23 09:27 Last Admin: 07/11/23 09:46 Dose: 4,000 ml Documented By: TC Sennosides (Sennosides 8.6 Mg Tablet) 17.2 mg PO NOW ONE Stop: 07/11/23 08:40 Last Admin: 07/11/23 08:49 Dose: 17.2 mg Documented By: TC Vital Signs Vital signs: Vital Signs - 8 hr 07/11/23 08:38 07/11/23 08:38 07/11/23 08:38 Temperature 97.6 F Pulse Rate 79 82 Respiratory Rate 14 Blood Pressure 133/64 133/64 Pulse Oximetry 98 99 Oxygen Delivery Method Room Air 07/11/23 09:00 07/11/23 09:23 07/11/23 09:23 Temperature Pulse Rate 78 77 Respiratory Rate Blood Pressure 128/83 Pulse Oximetry 96 98 Oxygen Delivery Method 07/11/23 09:30 07/11/23 09:30 07/11/23 10:06 Temperature Pulse Rate 75 72 Respiratory Rate Blood Pressure 115/66 Pulse Oximetry 95 93 Oxygen Delivery Method MDM - Abdominal Pain MDM Narrative Medical decision making narrative: Generalized abdominal pain and nausea in patient with 7 days of no bowel movement. Abdomen is soft, there is no significant tenderness to light or deep palpation, patient was not distended. Since she has had a colonoscopy within the last month I have very little suspicion for stricture or mass causing obstruction. Oral medications initiated, we will order KUB. KUB shows nonobstructive process. Patient began to complain of nausea and so Reglan and IV fluids were ordered. After glycerin suppository patient began to have bowel movements and reported feeling improved. Patient was given GoLYTELY to take home so that she may continue to improve her constipation. Patient was advised that when she feels that her constipation was relieved to start taking daily MiraLax with the goal of 1 soft bowel movement daily and to follow up with her primary care physician. ED return precautions discussed at bedside. Patient expressed understanding of the plan and is in agreement at this time. All questions answered at the time of discharge. Discharge Plan Departure Patient Disposition: Home Clinical Impression: Constipation Instructions: DI for Constipation Activity Restrictions/Additional Instructions: Take the GoLYTELY and drink this throughout the day. Once you feel your no longer constipated start a regimen of daily MiraLax dissolved in liquid. Goal is for 1 soft stool per day. Follow up with your GI doctor if you continue to have constipation. Prescriptions: No Action nitrofurantoin monohyd/m-cryst 100 mg capsule 100 mg PO BID Qty: 20 0RF Rx Instructions: must administer with a meal/food phenazopyridine [Pyridium] 200 mg tablet 200 mg PO TID PRN (Reason: pain) Qty: 20 0RF estradiol 1 mg tablet 1 mg PO DAILY Qty: 90 3RF atorvastatin 20 mg tablet 20 mg PO DAILY cetirizine 10 mg Tablet 10 mg PO DAILY clonazepam 1 mg tablet 2 mg PO QAM clonazepam 1 mg Tablet 1.5 mg PO BEDTIME gabapentin 800 mg tablet 800 mg PO BID trazodone 150 mg tablet 150 mg PO BEDTIME metformin 1,000 mg Tablet 1,000 mg PO BIDWMEAL ondansetron 4 mg tablet,disintegrating 4 mg PO 4XD PRN (Reason: nausea/vomiting) Patient Comments: DISSOLVE 1 tablet ON TONGUE 3 TO 4 TIMES DAILY if needed FOR NAUSEA AND V OMITING prazosin 2 mg Capsule 2 mg PO BEDTIME spironolactone 50 mg tablet 50 mg PO QAM metoclopramide HCl 10 mg tablet 10 mg PO 4XD atomoxetine 40 mg capsule 40 mg PO QAM buprenorphine-naloxone 2-0.5 mg tablet, sublingual 4 tab SUBLINGUAL DAILY propranolol 80 mg Capsule,Extended Release 24hr 80 mg PO DAILY dexlansoprazole [Dexilant] 60 mg Capsule,Biphase Delayed Releas 60 mg PO DAILY Jardiance 10 mg Tablet 10 mg PO QAM Triumeq 600-50-300 mg tablet 1 tab PO DAILY oxycodone 5 mg tablet 5 mg PO Q6H PRN (Reason: pain) Qty: 10 0RF metoclopramide HCl [Reglan] 10 mg tablet 10 mg PO Q6H PRN (Reason: nausea and vomiting) Qty: 20 0RF ciprofloxacin HCl [Cipro] 500 mg tablet 500 mg PO BID Qty: 14 0RF omeprazole 20 mg capsule,delayed release(DR/EC) 20 mg PO DAILY Qty: 30 0RF Referrals: Nidhi Faustin DO [Primary Care Provider] - Stand Alone Forms: Patient Portal/API
[2023-07-11] MEDS: LACTULOSE 20 GM/30 ML SOLUTION PO (08:49)
[2023-07-11] MEDS: SENNOSIDES 8.6 MG TABLET 17.2 MG PO (08:49)
[2023-07-11] MEDS: polyethylene glycoL 3350 17 GM POWD.PACK PO (08:50)
[2023-07-11] MEDS: SODIUM CHLORIDE 0.9% 1,000 ML 1000 ML IV (09:19)
[2023-07-11] MEDS: METOCLOPRAMIDE 10 MG/2 ML INJ IV (09:19)
[2023-07-11] MEDS: GLYCERIN SUPP ADULT 1 SUPP 1 EACH PR (09:45)
[2023-07-11] MEDS: PEG3350/SOD SULF,BICARB,CL/KCL 4,000 ML SOLUTION 4000 ML PO (09:46)
== END 2023-07-11 10:31 | disposition home or self-care (01) ==
PROVIDERS: Emergency Provider Emergency Medicine; PCP Family Medicine
DX: K59.00 Constipation, unspecified (principal)
CPT/HCPCS: 74018; 96374; 99284; J2765

== ENCOUNTER 2023-07-22 14:37 | Inpatient (IN) | payer MEDICARE, OTHER, SELFPAY ==
[2022-09-14 16:30] VITALS: BMI 32.2
[2023-07-22] VITALS (35 sets, daily range): BP systolic 99–164; BP diastolic 54–90; PULSE 70–107; RESP 12–26; TEMP 36.4–36.6; O2SAT 95–99; BMI 25.8
--- NOTE | 2023-07-22 14:39 | ED_ITS ---
HPI - Overdose <Stephenie Al MD - Last Filed: 07/26/23 23:38> General Chief Complaint: Toxicology Problem Stated Complaint: SI Overdose Time Seen by Provider: 07/22/23 14:38 History of Present Illness HPI Narrative: 52yoF with PMH IDDM, HIV, depression, anxiety, bipolar disorder, gastroparesis presents by EMS from home for OD. Patient took unknown amount of tylenol and ibuprofen sometime between 9am and 1pm. On arrival patient was somnolent, eyes were closed and not responding appropriately to questions. Related Data Home Medications Medication Instructions Recorded Confirmed abacavir 600 mg-dolutegravir 50 1 tab PO DAILY 09/14/22 07/23/23 mg-lamivudine 300 mg tablet (Triumeq) atomoxetine 40 mg capsule 40 mg PO QAM 09/14/22 07/23/23 buprenorphine 2 mg-naloxone 0.5 mg 4 tab sublingual DAILY 09/14/22 07/23/23 sublingual tablet cetirizine 10 mg tablet 10 mg PO DAILY 09/14/22 07/23/23 clonazepam 1 mg tablet 1 mg PO 3XD 09/14/22 07/23/23 dexlansoprazole 60 mg 60 mg PO DAILY 09/14/22 07/23/23 capsule,biphase delayed release (Dexilant) gabapentin 800 mg tablet 800 mg PO BID 09/14/22 07/23/23 ondansetron 4 mg disintegrating 4 mg PO 4XD PRN nausea/vomiting 09/14/22 07/23/23 tablet prazosin 2 mg capsule 2 mg PO BID 09/14/22 07/23/23 propranolol 80 mg capsule,extended 80 mg PO DAILY 09/14/22 07/23/23 release 24 hr spironolactone 50 mg tablet 50 mg PO QAM 09/14/22 07/23/23 trazodone 150 mg tablet 150 mg PO BEDTIME 09/14/22 07/23/23 atorvastatin 20 mg tablet 20 mg PO DAILY 07/23/23 07/23/23 canagliflozin 150 mg-metformin 1 tab PO BID 07/23/23 07/23/23 1,000 mg tablet (Invokamet) duloxetine 60 mg capsule,delayed 60 mg PO DAILY 07/23/23 07/23/23 release Previous Rx's Medication Instructions Recorded estradiol 1 mg tablet 1 mg PO DAILY #90 tabs 07/07/23 buprenorphine 2 mg-naloxone 0.5 mg 4 film buccal DAILY #120 ea 07/24/23 sublingual film (Suboxone) clonazepam 0.5 mg tablet 1 mg (2 x 0.5 mg) PO TID PRN 07/24/23 Anxiety #60 tabs Allergies Allergy/AdvReac Type Severity Reaction Status Date / Time levofloxacin [LEVOFLOXACIN] Allergy Severe hives Verified 07/22/23 14:50 Sulfa (Sulfonamide Allergy Severe rash Verified 07/22/23 14:50 Antibiotics) [SULFA (SULFONAMIDE ANTIBIOTICS)] amoxicillin [From AUGMENTIN] Allergy Mild rash Verified 07/22/23 14:50 ciprofloxacin [From CIPRO] Allergy Mild rash Verified 07/22/23 14:50 clarithromycin [From BIAXIN] Allergy Mild rash Verified 07/22/23 14:50 clavulanic acid Allergy Mild rash Verified 07/22/23 14:50 [From AUGMENTIN] morphine [MORPHINE] AdvReac Mild n/v Verified 07/22/23 14:50 pregabalin [PREGABALIN] AdvReac Mild lost voice Verified 07/22/23 14:50 Review of Systems <Stephenie Al MD - Last Filed: 07/26/23 23:38> Review of Systems Narrative: Unable to assess due to patient condition Patient History <Stephenie Al MD - Last Filed: 07/26/23 23:38> Medical History Retained ureteral stent Hx of osteoarthritis Hx of migraine headaches History of liver disease Kidney stone on left side Bipolar disorder Arthritis HIV (human immunodeficiency virus infection) History of gastrointestinal symptoms Anxiety Diabetes mellitus Hypertension GERD (gastroesophageal reflux disease) Fibroids Depression PTSD (post-traumatic stress disorder) Surgical History History of stress incontinence procedure using tension free vaginal tape (2013) History of cystoscopy (2013) S/P functional endoscopic sinus surgery (2002) Status post arthroscopy (2003) Status post laparoscopic supracervical hysterectomy (2011) Status post cholecystectomy (2011) Family History Father Diabetes mellitus Hypertension CVA (cerebral vascular accident) Mother Diabetes mellitus Hypertension CVA (cerebral vascular accident) Hearing impairment Brother Hypertension Social History marital status: number of children: 3 household members: spouse occupational status: disabled Smoking Status: Current every day smoker alcohol intake: never caffeine: Yes Type(s) of exercise: none Smoking Status: Current every day smoker tobacco type: cigarettes alcohol intake frequency: holidays/special occasions only Substance Use Type: marijuana Exam <Stephenie Al MD - Last Filed: 07/26/23 23:38> Initial Vital Signs Initial Vital Signs: Vital Signs Temperature 97.9 F 07/22/23 14:40 Pulse Rate 88 07/22/23 14:40 Respiratory Rate 15 07/22/23 14:40 Blood Pressure 110/55 L 07/22/23 14:40 Pulse Oximetry 97 07/22/23 14:40 Oxygen Delivery Method Room Air 07/22/23 14:40 Const: Eyes closed, rouses to voice Cardiac: regular rate, regular rhythm RESP: unlabored, clear bilaterally, no wheezing GI: Soft, generalized tenderness to deep palpation without rebound or guarding MSK: Atraumatic, full range of motion, pulses equal Skin: Warm, Dry, intact, no rashes Neuro: AO x1, CN II-XII grossly intact, moves all extremities <Tarik Thomas MD - Last Filed: 07/22/23 20:27> Initial Vital Signs Initial Vital Signs: Vital Signs Temperature 97.9 F 07/22/23 14:40 Pulse Rate 88 07/22/23 14:40 Respiratory Rate 15 07/22/23 14:40 Blood Pressure 110/55 L 07/22/23 14:40 Pulse Oximetry 97 07/22/23 14:40 Oxygen Delivery Method Room Air 07/22/23 14:40 Course <Stephenie Al MD - Last Filed: 07/26/23 23:38> Orders Ordered: Discontinued Medications Al Hydrox/Mg Hydrox/Simethicone (Mag Hydrox/Alum/Simeth 30 Ml Udc) 30 ml PO Q4HR PRN PRN Reason: Dyspepsia Last Admin: 07/23/23 15:18 Dose: 30 ml Documented By: MS Benzonatate (Benzonatate 100 Mg Capsule) 200 mg PO TID PRN PRN Reason: Cough Last Admin: 07/24/23 03:07 Dose: 200 mg Documented By: JANEE Buprenorphine/Naloxone (Buprenorphine/Naloxone 8mg/2mg 1 Tab) 1 tab SL DAILY [facility] Last Admin: 07/22/23 15:46 Dose: 1 tab Documented By: AUTUMN Calcium Carbonate (Calcium Carbonate 500 Mg Tab) 1,000 mg PO Q4HR PRN PRN Reason: Dyspepsia Last Admin: 07/23/23 10:04 Dose: 1,000 mg Documented By: Admin: 07/23/23 04:51 Dose: 1,000 mg Documented By: (2) Clonazepam (Clonazepam 0.5 Mg Tablet) 1 mg PO TID PRN PRN Reason: Anxiety Last Admin: 07/24/23 08:13 Dose: 1 mg Documented By: Admin: 07/23/23 21:27 Dose: 1 mg Documented By: JANEE Duloxetine HCl (Duloxetine 30 Mg Capsule) 60 mg PO DAILY [facility] Last Admin: 07/24/23 08:12 Dose: 60 mg Documented By: Admin: 07/23/23 08:32 Dose: 60 mg Documented By: Enoxaparin Sodium (Enoxaparin 40 Mg/0.4 Ml Syringe) 40 mg SUBCUT DAILY [facility] Last Admin: 07/24/23 08:12 Dose: 40 mg Documented By: Admin: 07/23/23 08:32 Dose: 40 mg Documented By: Gabapentin (Gabapentin 400 Mg Capsule) 800 mg PO BID [facility] Last Admin: 07/24/23 08:13 Dose: 800 mg Documented By: Admin: 07/23/23 20:46 Dose: 800 mg Documented By: Admin: 07/23/23 08:32 Dose: 800 mg Documented By: Sodium Chloride (Normal Saline 0.9%) 1,000 mls @ 1,000 mls/hr IV BOLUS ONE Stop: 07/22/23 15:38 Last Infusion: 07/22/23 15:32 Dose: Infused Documented By: Admin: 07/22/23 14:47 Dose: 1,000 mls/hr Documented By: AUTUMN Acetylcysteine 11.21542 g/ (Dextrose) 459.5343 mls @ 459.534 mls/hr IV NOW ONE Stop: 07/22/23 15:38 Last Infusion: 07/22/23 17:30 Dose: Infused Documented By: REBECCA Co-signed By: CAM Admin: 07/22/23 15:58 Dose: 459.534 mls/hr Documented By: AUTUMN Co-signed By: REBECCA Acetylcysteine 38.99161 g/ (Dextrose) 1,500.5096 mls @ 62.521 mls/hr IV NOW ONE Stop: 07/23/23 17:59 Last Infusion: 07/23/23 16:53 Dose: 0 mls/hr Documented By: Co-signed By: LORENZO Admin: 07/22/23 18:02 Dose: 62.521 mls/hr Documented By: AUTUMN Co-signed By: CAM Lactated Ringer's (Lactated Ringers) 1,000 mls @ 100 mls/hr IV CONT MILY Last Admin: 07/24/23 02:48 Dose: 100 mls/hr Documented By: Infusion: 07/24/23 02:44 Dose: Infused Documented By: RoxanneT Admin: 07/23/23 16:44 Dose: 100 mls/hr Documented By: Infusion: 07/23/23 16:44 Dose: Infused Documented By: Admin: 07/23/23 06:47 Dose: 100 mls/hr Documented By: MS(2) Infusion: 07/23/23 06:47 Dose: Infused Documented By: MS(2) Admin: 07/22/23 22:04 Dose: 100 mls/hr Documented By: MS(2) Insulin Human Lispro (Insulin Lispro 100 Unit/Ml 3ml Vial) 0 unit SUBCUT [facility]; Protocol Last Admin: 07/24/23 07:33 Dose: Not Given Documented By: Admin: 07/23/23 20:52 Dose: Not Given Documented By: Admin: 07/23/23 17:04 Dose: 1 unit Documented By: Co-signed By: LORENZO Admin: 07/23/23 11:46 Dose: 1 unit Documented By: Co-signed By: LORENZO Admin: 07/23/23 08:31 Dose: 1 unit Documented By: Co-signed By: LORENZO Metoclopramide HCl (Metoclopramide Hcl 5 Mg Tablet) 10 mg PO [facility] Last Admin: 07/24/23 07:38 Dose: 10 mg Documented By: Admin: 07/23/23 20:47 Dose: 10 mg Documented By: Admin: 07/23/23 17:04 Dose: 10 mg Documented By: Admin: 07/23/23 11:45 Dose: 10 mg Documented By: Admin: 07/23/23 08:32 Dose: 10 mg Documented By: Naloxone HCl (Naloxone 0.4 Mg/Ml Vial) 0.4 mg IV NOW ONE Stop: 07/22/23 14:57 Last Admin: 07/22/23 15:09 Dose: Not Given Documented By: AUTUMN Naloxone HCl (Naloxone 0.4 Mg/Ml Vial) 0.2 mg IV Q2MIN PRN PRN Reason: Opiate Reversal Nicotine (Nicotine 21 Mg Patch) 21 mg TOP DAILY [facility] Last Admin: 07/24/23 08:12 Dose: 21 mg Documented By: Admin: 07/23/23 08:30 Dose: 21 mg Documented By: Triumeq ( Dolutegravir, Abacavir, Lamivudine ) 1 Tab) 1 tab PO DAILY [facility] Last Admin: 07/24/23 08:15 Dose: 1 tab Documented By: Admin: 07/23/23 08:51 Dose: 1 tab Documented By: Ondansetron HCl (Ondansetron 4 Mg/2 Ml Inj) 4 mg IV NOW ONE Stop: 07/22/23 15:27 Last Admin: 07/22/23 15:33 Dose: 4 mg Documented By: ABBY Ondansetron HCl (Ondansetron 4 Mg/2 Ml Inj) 4 mg IV NOW ONE Stop: 07/22/23 17:29 Last Admin: 07/22/23 17:35 Dose: 4 mg Documented By: REBECCA Ondansetron HCl (Ondansetron 4 Mg/2 Ml Inj) 4 mg IV Q4HR [facility] Last Admin: 07/24/23 08:13 Dose: 4 mg Documented By: Admin: 07/24/23 05:05 Dose: 4 mg Documented By: Admin: 07/24/23 01:00 Dose: 4 mg Documented By: Admin: 07/23/23 20:47 Dose: 4 mg Documented By: Admin: 07/23/23 17:04 Dose: 4 mg Documented By: Admin: 07/23/23 14:02 Dose: 4 mg Documented By: Admin: 07/23/23 08:31 Dose: 4 mg Documented By: Admin: 07/23/23 03:34 Dose: 4 mg Documented By: MS(2) Admin: 07/23/23 01:20 Dose: Not Given Documented By: MS(2) Admin: 07/22/23 22:08 Dose: 4 mg Documented By: MS(2) Oxycodone HCl (Oxycodone 5 Mg/5 Ml Oral Solution) 5 mg PO Q6HR PRN PRN Reason: Pain, Moderate (4-6) Last Admin: 07/24/23 08:49 Dose: 5 mg Documented By: Admin: 07/24/23 02:54 Dose: 5 mg Documented By: Admin: 07/23/23 15:18 Dose: 5 mg Documented By: Admin: 07/23/23 08:33 Dose: 5 mg Documented By: Admin: 07/23/23 03:10 Dose: 5 mg Documented By: MS(2) Pantoprazole Sodium (Pantoprazole 40 Mg Vial) 40 mg IV BID [facility] Last Admin: 07/24/23 08:13 Dose: 40 mg Documented By: Admin: 07/23/23 20:47 Dose: 40 mg Documented By: Admin: 07/23/23 08:31 Dose: 40 mg Documented By: Admin: 07/22/23 23:12 Dose: 40 mg Documented By: MS(2) Prazosin HCl (Prazosin 1 Mg Capsule) 2 mg PO BID [facility] Last Admin: 07/24/23 08:12 Dose: 2 mg Documented By: Admin: 07/23/23 20:46 Dose: 2 mg Documented By: Admin: 07/23/23 08:32 Dose: 2 mg Documented By: MS Propranolol HCl (Propranolol 10 Mg Tablet) 20 mg PO BID [facility] Last Admin: 07/24/23 08:13 Dose: 20 mg Documented By: Admin: 07/23/23 20:58 Dose: 20 mg Documented By: Admin: 07/23/23 08:31 Dose: 20 mg Documented By: MS Sodium Chloride (Sodium Chloride 0.9% Flush) 10 ml IV BID [facility] Last Admin: 07/24/23 08:15 Dose: 10 ml Documented By: Admin: 07/23/23 20:48 Dose: 10 ml Documented By: RENNY Trazodone HCl (Trazodone 50 Mg Tablet) 150 mg PO BEDTIME [facility] Last Admin: 07/23/23 20:46 Dose: 150 mg Documented By: KDK Vital Signs Vital signs: Vital Signs - 8 hr 07/22/23 14:40 07/22/23 14:43 07/22/23 14:44 Temperature 97.9 F Pulse Rate 88 89 Respiratory Rate 15 Blood Pressure 110/55 L 110/55 L Pulse Oximetry 97 97 Oxygen Delivery Method Room Air 07/22/23 14:44 07/22/23 14:53 07/22/23 14:53 Temperature Pulse Rate 87 87 Respiratory Rate 20 22 Blood Pressure 116/60 Pulse Oximetry 98 97 Oxygen Delivery Method 07/22/23 15:00 07/22/23 15:00 07/22/23 15:10 Temperature Pulse Rate 85 Respiratory Rate 20 Blood Pressure 108/59 L 99/54 L Pulse Oximetry 98 Oxygen Delivery Method 07/22/23 15:10 07/22/23 15:20 07/22/23 15:20 Temperature Pulse Rate 91 H 91 H Respiratory Rate 21 18 Blood Pressure 111/55 L Pulse Oximetry 99 98 Oxygen Delivery Method 07/22/23 15:26 07/22/23 15:26 07/22/23 15:30 Temperature Pulse Rate 107 H 100 H Respiratory Rate 20 24 Blood Pressure 123/90 Pulse Oximetry 98 98 Oxygen Delivery Method 07/22/23 15:31 07/22/23 15:31 07/22/23 15:35 Temperature Pulse Rate 100 H Respiratory Rate 20 Blood Pressure 155/78 H 164/73 H Pulse Oximetry 97 Oxygen Delivery Method 07/22/23 15:35 07/22/23 15:40 07/22/23 15:40 Temperature Pulse Rate 103 H 101 H Respiratory Rate 26 H 20 Blood Pressure 140/68 Pulse Oximetry 98 98 Oxygen Delivery Method 07/22/23 15:45 07/22/23 15:45 07/22/23 15:50 Temperature Pulse Rate 100 H Respiratory Rate 22 Blood Pressure 125/58 L 120/69 Pulse Oximetry 99 Oxygen Delivery Method 07/22/23 15:50 07/22/23 15:55 07/22/23 15:55 Temperature Pulse Rate 99 H 98 H Respiratory Rate 24 23 Blood Pressure 117/67 Pulse Oximetry 99 98 Oxygen Delivery Method 07/22/23 16:06 07/22/23 16:07 07/22/23 16:07 Temperature Pulse Rate 99 H 99 H Respiratory Rate Blood Pressure 120/55 L Pulse Oximetry 98 98 Oxygen Delivery Method 07/22/23 16:28 07/22/23 16:28 07/22/23 16:30 Temperature Pulse Rate 96 H Respiratory Rate 24 Blood Pressure 126/65 129/63 Pulse Oximetry 96 Oxygen Delivery Method 07/22/23 16:30 07/22/23 17:00 07/22/23 17:30 Temperature Pulse Rate 94 H 95 H 97 H Respiratory Rate 26 H 24 17 Blood Pressure Pulse Oximetry 96 98 99 Oxygen Delivery Method 07/22/23 17:32 07/22/23 17:32 07/22/23 18:00 Temperature Pulse Rate 96 H Respiratory Rate 15 Blood Pressure 120/60 117/68 Pulse Oximetry 98 Oxygen Delivery Method 07/22/23 18:00 07/22/23 18:09 07/22/23 18:09 Temperature Pulse Rate 100 H 106 H Respiratory Rate 14 19 Blood Pressure 121/59 L Pulse Oximetry 98 99 Oxygen Delivery Method 07/22/23 18:30 07/22/23 18:30 07/22/23 19:00 Temperature Pulse Rate 100 H Respiratory Rate 18 Blood Pressure 117/70 104/67 Pulse Oximetry 99 Oxygen Delivery Method 07/22/23 19:00 07/22/23 19:30 07/22/23 19:30 Temperature Pulse Rate 97 H 93 H Respiratory Rate 17 19 Blood Pressure 112/59 L Pulse Oximetry 98 97 Oxygen Delivery Method <Tarik Thomas MD - Last Filed: 07/22/23 20:27> Orders Ordered: Discontinued Medications Al Hydrox/Mg Hydrox/Simethicone (Mag Hydrox/Alum/Simeth 30 Ml Udc) 30 ml PO Q4HR PRN PRN Reason: Dyspepsia Last Admin: 07/23/23 15:18 Dose: 30 ml Documented By: MS Benzonatate (Benzonatate 100 Mg Capsule) 200 mg PO TID PRN PRN Reason: Cough Last Admin: 07/24/23 03:07 Dose: 200 mg Documented By: JT Buprenorphine/Naloxone (Buprenorphine/Naloxone 8mg/2mg 1 Tab) 1 tab SL DAILY [facility] Last Admin: 07/22/23 15:46 Dose: 1 tab Documented By: ZGG Calcium Carbonate (Calcium Carbonate 500 Mg Tab) 1,000 mg PO Q4HR PRN PRN Reason: Dyspepsia Last Admin: 07/23/23 10:04 Dose: 1,000 mg Documented By: Admin: 07/23/23 04:51 Dose: 1,000 mg Documented By: (2) Clonazepam (Clonazepam 0.5 Mg Tablet) 1 mg PO TID PRN PRN Reason: Anxiety Last Admin: 07/24/23 08:13 Dose: 1 mg Documented By: Admin: 07/23/23 21:27 Dose: 1 mg Documented By: JANEE Duloxetine HCl (Duloxetine 30 Mg Capsule) 60 mg PO DAILY [facility] Last Admin: 07/24/23 08:12 Dose: 60 mg Documented By: Admin: 07/23/23 08:32 Dose: 60 mg Documented By: Enoxaparin Sodium (Enoxaparin 40 Mg/0.4 Ml Syringe) 40 mg SUBCUT DAILY [facility] Last Admin: 07/24/23 08:12 Dose: 40 mg Documented By: Admin: 07/23/23 08:32 Dose: 40 mg Documented By: Gabapentin (Gabapentin 400 Mg Capsule) 800 mg PO BID [facility] Last Admin: 07/24/23 08:13 Dose: 800 mg Documented By: Admin: 07/23/23 20:46 Dose: 800 mg Documented By: Admin: 07/23/23 08:32 Dose: 800 mg Documented By: Sodium Chloride (Normal Saline 0.9%) 1,000 mls @ 1,000 mls/hr IV BOLUS ONE Stop: 07/22/23 15:38 Last Infusion: 07/22/23 15:32 Dose: Infused Documented By: Admin: 07/22/23 14:47 Dose: 1,000 mls/hr Documented By: AUTUMN Acetylcysteine 11.13471 g/ (Dextrose) 459.5343 mls @ 459.534 mls/hr IV NOW ONE Stop: 07/22/23 15:38 Last Infusion: 07/22/23 17:30 Dose: Infused Documented By: REBECCA Co-signed By: CAM Admin: 07/22/23 15:58 Dose: 459.534 mls/hr Documented By: AUTUMN Co-signed By: REBECCA Acetylcysteine 38.61722 g/ (Dextrose) 1,500.5096 mls @ 62.521 mls/hr IV NOW ONE Stop: 07/23/23 17:59 Last Infusion: 07/23/23 16:53 Dose: 0 mls/hr Documented By: Co-signed By: LORENZO Admin: 07/22/23 18:02 Dose: 62.521 mls/hr Documented By: AUTUMN Co-signed By: CAM Lactated Ringer's (Lactated Ringers) 1,000 mls @ 100 mls/hr IV CONT [facility] Last Admin: 07/24/23 02:48 Dose: 100 mls/hr Documented By: Infusion: 07/24/23 02:44 Dose: Infused Documented By: Admin: 07/23/23 16:44 Dose: 100 mls/hr Documented By: Infusion: 07/23/23 16:44 Dose: Infused Documented By: Admin: 07/23/23 06:47 Dose: 100 mls/hr Documented By: (2) Infusion: 07/23/23 06:47 Dose: Infused Documented By: (2) Admin: 07/22/23 22:04 Dose: 100 mls/hr Documented By: (2) Insulin Human Lispro (Insulin Lispro 100 Unit/Ml 3ml Vial) 0 unit SUBCUT [facility]; Protocol Last Admin: 07/24/23 07:33 Dose: Not Given Documented By: Admin: 07/23/23 20:52 Dose: Not Given Documented By: Admin: 07/23/23 17:04 Dose: 1 unit Documented By: Co-signed By: LORENZO Admin: 07/23/23 11:46 Dose: 1 unit Documented By: Co-signed By: LORENZO Admin: 07/23/23 08:31 Dose: 1 unit Documented By: Co-signed By: LORENZO Metoclopramide HCl (Metoclopramide Hcl 5 Mg Tablet) 10 mg PO ACHS [facility] Last Admin: 07/24/23 07:38 Dose: 10 mg Documented By: Admin: 07/23/23 20:47 Dose: 10 mg Documented By: Admin: 07/23/23 17:04 Dose: 10 mg Documented By: Admin: 07/23/23 11:45 Dose: 10 mg Documented By: Admin: 07/23/23 08:32 Dose: 10 mg Documented By: Naloxone HCl (Naloxone 0.4 Mg/Ml Vial) 0.4 mg IV NOW ONE Stop: 07/22/23 14:57 Last Admin: 07/22/23 15:09 Dose: Not Given Documented By: AUTUMN Naloxone HCl (Naloxone 0.4 Mg/Ml Vial) 0.2 mg IV Q2MIN PRN PRN Reason: Opiate Reversal Nicotine (Nicotine 21 Mg Patch) 21 mg TOP DAILY [facility] Last Admin: 07/24/23 08:12 Dose: 21 mg Documented By: Admin: 07/23/23 08:30 Dose: 21 mg Documented By: Triumeq ( Dolutegravir, Abacavir, Lamivudine ) 1 Tab) 1 tab PO DAILY [facility] Last Admin: 07/24/23 08:15 Dose: 1 tab Documented By: Admin: 07/23/23 08:51 Dose: 1 tab Documented By: Ondansetron HCl (Ondansetron 4 Mg/2 Ml Inj) 4 mg IV NOW ONE Stop: 07/22/23 15:27 Last Admin: 07/22/23 15:33 Dose: 4 mg Documented By: ABBY Ondansetron HCl (Ondansetron 4 Mg/2 Ml Inj) 4 mg IV NOW ONE Stop: 07/22/23 17:29 Last Admin: 07/22/23 17:35 Dose: 4 mg Documented By: REBECCA Ondansetron HCl (Ondansetron 4 Mg/2 Ml Inj) 4 mg IV Q4HR [facility] Last Admin: 07/24/23 08:13 Dose: 4 mg Documented By: Admin: 07/24/23 05:05 Dose: 4 mg Documented By: Admin: 07/24/23 01:00 Dose: 4 mg Documented By: Admin: 07/23/23 20:47 Dose: 4 mg Documented By: Admin: 07/23/23 17:04 Dose: 4 mg Documented By: Admin: 07/23/23 14:02 Dose: 4 mg Documented By: Admin: 07/23/23 08:31 Dose: 4 mg Documented By: Admin: 07/23/23 03:34 Dose: 4 mg Documented By: (2) Admin: 07/23/23 01:20 Dose: Not Given Documented By: (2) Admin: 07/22/23 22:08 Dose: 4 mg Documented By: MS(2) Oxycodone HCl (Oxycodone 5 Mg/5 Ml Oral Solution) 5 mg PO Q6HR PRN PRN Reason: Pain, Moderate (4-6) Last Admin: 07/24/23 08:49 Dose: 5 mg Documented By: Admin: 07/24/23 02:54 Dose: 5 mg Documented By: Admin: 07/23/23 15:18 Dose: 5 mg Documented By: Admin: 07/23/23 08:33 Dose: 5 mg Documented By: Admin: 07/23/23 03:10 Dose: 5 mg Documented By: MS(2) Pantoprazole Sodium (Pantoprazole 40 Mg Vial) 40 mg IV BID [facility] Last Admin: 07/24/23 08:13 Dose: 40 mg Documented By: Admin: 07/23/23 20:47 Dose: 40 mg Documented By: Admin: 07/23/23 08:31 Dose: 40 mg Documented By: Admin: 07/22/23 23:12 Dose: 40 mg Documented By: MS(2) Prazosin HCl (Prazosin 1 Mg Capsule) 2 mg PO BID [facility] Last Admin: 07/24/23 08:12 Dose: 2 mg Documented By: Admin: 07/23/23 20:46 Dose: 2 mg Documented By: Admin: 07/23/23 08:32 Dose: 2 mg Documented By: MS Propranolol HCl (Propranolol 10 Mg Tablet) 20 mg PO BID [facility] Last Admin: 07/24/23 08:13 Dose: 20 mg Documented By: Admin: 07/23/23 20:58 Dose: 20 mg Documented By: Admin: 07/23/23 08:31 Dose: 20 mg Documented By: MS Sodium Chloride (Sodium Chloride 0.9% Flush) 10 ml IV BID [facility] Last Admin: 07/24/23 08:15 Dose: 10 ml Documented By: Admin: 07/23/23 20:48 Dose: 10 ml Documented By: RENNY Trazodone HCl (Trazodone 50 Mg Tablet) 150 mg PO BEDTIME [facility] Last Admin: 07/23/23 20:46 Dose: 150 mg Documented By: RENNY Vital Signs Vital signs: Vital Signs - 8 hr 07/22/23 14:40 07/22/23 14:43 07/22/23 14:44 Temperature 97.9 F Pulse Rate 88 89 Respiratory Rate 15 Blood Pressure 110/55 L 110/55 L Pulse Oximetry 97 97 Oxygen Delivery Method Room Air 07/22/23 14:44 07/22/23 14:53 07/22/23 14:53 Temperature Pulse Rate 87 87 Respiratory Rate 20 22 Blood Pressure 116/60 Pulse Oximetry 98 97 Oxygen Delivery Method 07/22/23 15:00 07/22/23 15:00 07/22/23 15:10 Temperature Pulse Rate 85 Respiratory Rate 20 Blood Pressure 108/59 L 99/54 L Pulse Oximetry 98 Oxygen Delivery Method 07/22/23 15:10 07/22/23 15:20 07/22/23 15:20 Temperature Pulse Rate 91 H 91 H Respiratory Rate 21 18 Blood Pressure 111/55 L Pulse Oximetry 99 98 Oxygen Delivery Method 07/22/23 15:26 07/22/23 15:26 07/22/23 15:30 Temperature Pulse Rate 107 H 100 H Respiratory Rate 20 24 Blood Pressure 123/90 Pulse Oximetry 98 98 Oxygen Delivery Method 07/22/23 15:31 07/22/23 15:31 07/22/23 15:35 Temperature Pulse Rate 100 H Respiratory Rate 20 Blood Pressure 155/78 H 164/73 H Pulse Oximetry 97 Oxygen Delivery Method 07/22/23 15:35 07/22/23 15:40 07/22/23 15:40 Temperature Pulse Rate 103 H 101 H Respiratory Rate 26 H 20 Blood Pressure 140/68 Pulse Oximetry 98 98 Oxygen Delivery Method 07/22/23 15:45 07/22/23 15:45 07/22/23 15:50 Temperature Pulse Rate 100 H Respiratory Rate 22 Blood Pressure 125/58 L 120/69 Pulse Oximetry 99 Oxygen Delivery Method 07/22/23 15:50 07/22/23 15:55 07/22/23 15:55 Temperature Pulse Rate 99 H 98 H Respiratory Rate 24 23 Blood Pressure 117/67 Pulse Oximetry 99 98 Oxygen Delivery Method 07/22/23 16:06 07/22/23 16:07 07/22/23 16:07 Temperature Pulse Rate 99 H 99 H Respiratory Rate Blood Pressure 120/55 L Pulse Oximetry 98 98 Oxygen Delivery Method 07/22/23 16:28 07/22/23 16:28 07/22/23 16:30 Temperature Pulse Rate 96 H Respiratory Rate 24 Blood Pressure 126/65 129/63 Pulse Oximetry 96 Oxygen Delivery Method 07/22/23 16:30 07/22/23 17:00 07/22/23 17:30 Temperature Pulse Rate 94 H 95 H 97 H Respiratory Rate 26 H 24 17 Blood Pressure Pulse Oximetry 96 98 99 Oxygen Delivery Method 07/22/23 17:32 07/22/23 17:32 07/22/23 18:00 Temperature Pulse Rate 96 H Respiratory Rate 15 Blood Pressure 120/60 117/68 Pulse Oximetry 98 Oxygen Delivery Method 07/22/23 18:00 07/22/23 18:09 07/22/23 18:09 Temperature Pulse Rate 100 H 106 H Respiratory Rate 14 19 Blood Pressure 121/59 L Pulse Oximetry 98 99 Oxygen Delivery Method 07/22/23 18:30 07/22/23 18:30 07/22/23 19:00 Temperature Pulse Rate 100 H Respiratory Rate 18 Blood Pressure 117/70 104/67 Pulse Oximetry 99 Oxygen Delivery Method 07/22/23 19:00 07/22/23 19:30 07/22/23 19:30 Temperature Pulse Rate 97 H 93 H Respiratory Rate 17 19 Blood Pressure 112/59 L Pulse Oximetry 98 97 Oxygen Delivery Method MDM - Overdose <Stephenie Al MD - Last Filed: 07/26/23 23:38> Differential Diagnosis Differential diagnosis: Likely cocaine intoxication, suicide attempt by multiple drug overdose and poisoning by opiate or related narcotic Lab Data 07/24/23 04:15 07/24/23 04:15 Labs: Lab Results 07/22/23 07/22/23 07/22/23 Range/Units 14:48 14:50 15:14 WBC 11.0 (4.5-11.0) X10^3/uL RBC 5.01 (4.0-5.2) X10^6/uL Hgb 14.9 (12.0-16.0) g/dL Hct 45.8 (36-46) % MCV 91.5 (80-100) fL MCH 29.8 (26-34) PG MCHC 32.5 (30-36) % RDW 15.1 H (11.6-14.8) % Plt Count 309 (150-400) X10^3/uL Neut % (Auto) 56.1 (50-75) % Lymph % (Auto) 37.2 (25-40) % [place] % (Auto) 4.2 (3-14) % Eos % (Auto) 1.3 L (2-4) % Baso % (Auto) 1.2 (0-2) % Neut # (Auto) 6200 (6088-9815) /uL Lymph # (Auto) 4100 (5015-6519) /uL [place] # (Auto) 500 (0-900) /uL Eos # (Auto) 100 (0-450) /uL Baso # (Auto) 100 (0-100) /uL PT 12.0 (9.4-12.5) SECONDS INR 1.0 (0.9-1.3) ABG Sample Site ABG pH (7.35-7.45) ABG pCO2 (35-45) mmHg ABG pO2 (80-100) mmHg ABG HCO3 (23-27) mmol/L ABG Total CO2 (23-27) mmol/L ABG O2 Saturation (95-100) % ABG Base Excess (-2-3) mmol/L FiO2 Sodium 137 (137-145) mmol/L Potassium 4.3 (3.4-5.1) mmol/L Chloride 104 (98-107) mmol/L Carbon Dioxide 20 L (22-32) mmol/L BUN 12 (7-17) mg/dL Creatinine 0.75 (0.52-1.04) mg/dL Estimated GFR > 60 (>60) mL/min BUN/Creatinine Ratio 16.0 (6-22) Glucose 186 H (70-100) mg/dL Calcium 9.4 (8.4-10.2) mg/dL Phosphorus (2.5-4.5) mg/dL Magnesium 1.8 (1.6-2.3) mg/dL Total Bilirubin 0.5 (0.2-1.3) mg/dL AST 23 (14-36) IU/L ALT 14 (<35) IU/L Alkaline Phosphatase 91 (38-126) U/L Total Protein 7.3 (6.3-8.2) g/dL Albumin 3.9 (3.5-5.0) g/dL Globulin 3.4 (1.7-4.1) g/dL Albumin/Globulin Ratio 1.1 (1.0-2.8) TSH 0.799 (0.47-4.68) uIU/mL Urine Color Yellow Urine Appearance Clear Urine pH 5.0 (4.5-8.0) Ur Specific [place] <=1.005 (1.000-1.035) Urine Protein Negative (Negative) Urine Glucose (UA) 3+ H (Negative) g/dL Urine Ketones Negative (NEGATIVE) Urine Occult Blood Negative (Negative) Urine Nitrate Negative (Negative) Urine Bilirubin Negative (NEGATIVE) Urine Urobilinogen 0.2 (0.2) E.U./dL Ur Leukocyte Esterase Negative (NEGATIVE) Urine RBC 0-1/hpf (0-5/HPF) Urine WBC 0-1/hpf (0-5/HPF) Ur Squamous Epith Cells 0-1 /hpf (0-5/HPF) Urine Bacteria Few (2-10) H (None) Ur Culture Indicated? Cult not indicated Vol Urine Centrifuged 10ml (spun) Salicylates < 1.0 (<20) mg/dL U Opiates 300ng/mL cut Negative (Negative) Ur Oxycodone Screen Negative (Negative) Urine Methadone Screen Negative (Negative) Acetaminophen 341 H* (10-30) ug/mL Ur Barbiturates Screen Negative (Negative) U Tricyclic Antidepress Negative (Negative) Ur Phencyclidine Scrn Negative (Negative) Ur Amphetamines Screen Negative (Negative) U Methamphetamines Scrn Negative (Negative) Ur MDMA Scrn (Ecstasy) Negative (Negative) U Benzodiazepines Scrn Negative (Negative) Urine Cocaine Screen Negative (Negative) U Marijuana (THC) Screen Positive H (Negative) Urine Specific [place] (Normal) Ethyl Alcohol < 10 ( - 10) mg/dL Ur Creatinine (Normal) SARS-CoV-2 (PCR) Negative (Negative) 07/22/23 07/22/23 07/22/23 Range/Units 15:14 15:22 17:28 WBC 10.7 (4.5-11.0) X10^3/uL RBC 5.01 (4.0-5.2) X10^6/uL Hgb 15.1 (12.0-16.0) g/dL Hct 45.8 (36-46) % MCV 91.6 (80-100) fL MCH 30.2 (26-34) PG MCHC 33.0 (30-36) % RDW 14.8 (11.6-14.8) % Plt Count 292 (150-400) X10^3/uL Neut % (Auto) 58.2 (50-75) % Lymph % (Auto) 37.0 (25-40) % [place] % (Auto) 3.1 (3-14) % Eos % (Auto) 0.9 L (2-4) % Baso % (Auto) 0.8 (0-2) % Neut # (Auto) 6200 (4264-0389) /uL Lymph # (Auto) 3900 (7467-0214) /uL [place] # (Auto) 300 (0-900) /uL Eos # (Auto) 100 (0-450) /uL Baso # (Auto) 100 (0-100) /uL PT 13.0 H (9.4-12.5) SECONDS INR 1.1 (0.9-1.3) ABG Sample Site Right brachial ABG pH 7.40 (7.35-7.45) ABG pCO2 27.5 L (35-45) mmHg ABG pO2 109 H (80-100) mmHg ABG HCO3 17 L (23-27) mmol/L ABG Total CO2 18 L (23-27) mmol/L ABG O2 Saturation 98 (95-100) % ABG Base Excess -8.0 L (-2-3) mmol/L FiO2 21 Sodium 141 (137-145) mmol/L Potassium 3.9 (3.4-5.1) mmol/L Chloride 108 H (98-107) mmol/L Carbon Dioxide 16 L (22-32) mmol/L BUN 12 (7-17) mg/dL Creatinine 0.53 (0.52-1.04) mg/dL Estimated GFR > 60 (>60) mL/min BUN/Creatinine Ratio 22.6 H (6-22) Glucose 193 H (70-100) mg/dL Calcium 8.9 (8.4-10.2) mg/dL Phosphorus 3.4 (2.5-4.5) mg/dL Magnesium (1.6-2.3) mg/dL Total Bilirubin 0.4 (0.2-1.3) mg/dL AST 15 (14-36) IU/L ALT 15 (<35) IU/L Alkaline Phosphatase 29 L D (38-126) U/L Total Protein 7.2 (6.3-8.2) g/dL Albumin 3.8 (3.5-5.0) g/dL Globulin 3.4 (1.7-4.1) g/dL Albumin/Globulin Ratio 1.1 (1.0-2.8) TSH (0.47-4.68) uIU/mL Urine Color Urine Appearance Urine pH Normal (4.5-8.0) Ur Specific [place] (1.000-1.035) Urine Protein (Negative) Urine Glucose (UA) (Negative) g/dL Urine Ketones (NEGATIVE) Urine Occult Blood (Negative) Urine Nitrate (Negative) Urine Bilirubin (NEGATIVE) Urine Urobilinogen (0.2) E.U./dL Ur Leukocyte Esterase (NEGATIVE) Urine RBC (0-5/HPF) Urine WBC (0-5/HPF) Ur Squamous Epith Cells (0-5/HPF) Urine Bacteria (None) Ur Culture Indicated? Vol Urine Centrifuged Salicylates (<20) mg/dL U Opiates 300ng/mL cut (Negative) Ur Oxycodone Screen (Negative) Urine Methadone Screen (Negative) Acetaminophen 347 H* (10-30) ug/mL Ur Barbiturates Screen (Negative) U Tricyclic Antidepress (Negative) Ur Phencyclidine Scrn (Negative) Ur Amphetamines Screen (Negative) U Methamphetamines Scrn (Negative) Ur MDMA Scrn (Ecstasy) (Negative) U Benzodiazepines Scrn (Negative) Urine Cocaine Screen (Negative) U Marijuana (THC) Screen (Negative) Urine Specific [place] Normal (Normal) Ethyl Alcohol ( - 10) mg/dL Ur Creatinine Normal (Normal) SARS-CoV-2 (PCR) (Negative) [facility] Narrative Medical decision making narrative: Tylenol and ibuprofen overdose, unknown exact time. Patient currently unable to provide meaningful history. She is somnolent, but easily arouses to voice. Is confused, but maintaining her airway. Poison control recommended additional testing, we will call back with results. Laboratory work is reviewed, WBC count 11, hemoglobin 14.9, platelets 309, INR 1.0, sodium 137, potassium 4.3, chloride 104, creatinine 0.75, magnesium 1.8, T bili 0.5, AST 23, ALT 14, alk phos 91. Anion gap 13, pH on ABG 7.39. Tox screen significant for Tylenol level of 341. Alcohol and salicylate undetectable, urine tox positive for marijuana. Poison control re-contacted, they recommend starting NAC. is at bedside, he states that patient has been very depressed with her chronic GI issues and the stress of her unresolved symptoms caused her to overdose today. Call placed to hospitalist service, who requested transfer to higher level of care with facility with GI Services. is in agreement at this time. 1620 - Discussed with Dr. Bee of GI. Stated that patient needed to be transferred to a facility with transplant hepatology and recommended [facility] as there are no local transplant hepatology hospitals- 1645 -discussed case with on-call energy systems laboratory director Dr. Pond at . Case reviewed, patient does not appear to meet criteria for transfer for hepatology at this time with stable vitals, stable liver enzymes. We discussed with hospitalist Dr. Proctro, who stated that if liver enzymes were stable on repeat labs she could stay in the hospital here. Naloxone at Discharge Meets criteria for naloxone at discharge?: No <Tarik Thomas MD - Last Filed: 07/22/23 20:27> Lab Data Labs: Lab Results 07/22/23 07/22/23 07/22/23 Range/Units 14:48 14:50 15:14 WBC 11.0 (4.5-11.0) X10^3/uL RBC 5.01 (4.0-5.2) X10^6/uL Hgb 14.9 (12.0-16.0) g/dL Hct 45.8 (36-46) % MCV 91.5 (80-100) fL MCH 29.8 (26-34) PG MCHC 32.5 (30-36) % RDW 15.1 H (11.6-14.8) % Plt Count 309 (150-400) X10^3/uL Neut % (Auto) 56.1 (50-75) % Lymph % (Auto) 37.2 (25-40) % [place] % (Auto) 4.2 (3-14) % Eos % (Auto) 1.3 L (2-4) % Baso % (Auto) 1.2 (0-2) % Neut # (Auto) 6200 (0873-7782) /uL Lymph # (Auto) 4100 (5429-4827) /uL [place] # (Auto) 500 (0-900) /uL Eos # (Auto) 100 (0-450) /uL Baso # (Auto) 100 (0-100) /uL PT 12.0 (9.4-12.5) SECONDS INR 1.0 (0.9-1.3) ABG Sample Site ABG pH (7.35-7.45) ABG pCO2 (35-45) mmHg ABG pO2 (80-100) mmHg ABG HCO3 (23-27) mmol/L ABG Total CO2 (23-27) mmol/L ABG O2 Saturation (95-100) % ABG Base Excess (-2-3) mmol/L FiO2 Sodium 137 (137-145) mmol/L Potassium 4.3 (3.4-5.1) mmol/L Chloride 104 (98-107) mmol/L Carbon Dioxide 20 L (22-32) mmol/L BUN 12 (7-17) mg/dL Creatinine 0.75 (0.52-1.04) mg/dL Estimated GFR > 60 (>60) mL/min BUN/Creatinine Ratio 16.0 (6-22) Glucose 186 H (70-100) mg/dL Calcium 9.4 (8.4-10.2) mg/dL Phosphorus (2.5-4.5) mg/dL Magnesium 1.8 (1.6-2.3) mg/dL Total Bilirubin 0.5 (0.2-1.3) mg/dL AST 23 (14-36) IU/L ALT 14 (<35) IU/L Alkaline Phosphatase 91 (38-126) U/L Total Protein 7.3 (6.3-8.2) g/dL Albumin 3.9 (3.5-5.0) g/dL Globulin 3.4 (1.7-4.1) g/dL Albumin/Globulin Ratio 1.1 (1.0-2.8) TSH 0.799 (0.47-4.68) uIU/mL Urine Color Yellow Urine Appearance Clear Urine pH 5.0 (4.5-8.0) Ur Specific [place] <=1.005 (1.000-1.035) Urine Protein Negative (Negative) Urine Glucose (UA) 3+ H (Negative) g/dL Urine Ketones Negative (NEGATIVE) Urine Occult Blood Negative (Negative) Urine Nitrate Negative (Negative) Urine Bilirubin Negative (NEGATIVE) Urine Urobilinogen 0.2 (0.2) E.U./dL Ur Leukocyte Esterase Negative (NEGATIVE) Urine RBC 0-1/hpf (0-5/HPF) Urine WBC 0-1/hpf (0-5/HPF) Ur Squamous Epith Cells 0-1 /hpf (0-5/HPF) Urine Bacteria Few (2-10) H (None) Ur Culture Indicated? Cult not indicated Vol Urine Centrifuged 10ml (spun) Salicylates < 1.0 (<20) mg/dL U Opiates 300ng/mL cut Negative (Negative) Ur Oxycodone Screen Negative (Negative) Urine Methadone Screen Negative (Negative) Acetaminophen 341 H* (10-30) ug/mL Ur Barbiturates Screen Negative (Negative) U Tricyclic Antidepress Negative (Negative) Ur Phencyclidine Scrn Negative (Negative) Ur Amphetamines Screen Negative (Negative) U Methamphetamines Scrn Negative (Negative) Ur MDMA Scrn (Ecstasy) Negative (Negative) U Benzodiazepines Scrn Negative (Negative) Urine Cocaine Screen Negative (Negative) U Marijuana (THC) Screen Positive H (Negative) Urine Specific [place] (Normal) Ethyl Alcohol < 10 ( - 10) mg/dL Ur Creatinine (Normal) SARS-CoV-2 (PCR) Negative (Negative) 07/22/23 07/22/23 07/22/23 Range/Units 15:14 15:22 17:28 WBC 10.7 (4.5-11.0) X10^3/uL RBC 5.01 (4.0-5.2) X10^6/uL Hgb 15.1 (12.0-16.0) g/dL Hct 45.8 (36-46) % MCV 91.6 (80-100) fL MCH 30.2 (26-34) PG MCHC 33.0 (30-36) % RDW 14.8 (11.6-14.8) % Plt Count 292 (150-400) X10^3/uL Neut % (Auto) 58.2 (50-75) % Lymph % (Auto) 37.0 (25-40) % [place] % (Auto) 3.1 (3-14) % Eos % (Auto) 0.9 L (2-4) % Baso % (Auto) 0.8 (0-2) % Neut # (Auto) 6200 (0289-8752) /uL Lymph # (Auto) 3900 (1868-1890) /uL [place] # (Auto) 300 (0-900) /uL Eos # (Auto) 100 (0-450) /uL Baso # (Auto) 100 (0-100) /uL PT 13.0 H (9.4-12.5) SECONDS INR 1.1 (0.9-1.3) ABG Sample Site Right brachial ABG pH 7.40 (7.35-7.45) ABG pCO2 27.5 L (35-45) mmHg ABG pO2 109 H (80-100) mmHg ABG HCO3 17 L (23-27) mmol/L ABG Total CO2 18 L (23-27) mmol/L ABG O2 Saturation 98 (95-100) % ABG Base Excess -8.0 L (-2-3) mmol/L FiO2 21 Sodium 141 (137-145) mmol/L Potassium 3.9 (3.4-5.1) mmol/L Chloride 108 H (98-107) mmol/L Carbon Dioxide 16 L (22-32) mmol/L BUN 12 (7-17) mg/dL Creatinine 0.53 (0.52-1.04) mg/dL Estimated GFR > 60 (>60) mL/min BUN/Creatinine Ratio 22.6 H (6-22) Glucose 193 H (70-100) mg/dL Calcium 8.9 (8.4-10.2) mg/dL Phosphorus 3.4 (2.5-4.5) mg/dL Magnesium (1.6-2.3) mg/dL Total Bilirubin 0.4 (0.2-1.3) mg/dL AST 15 (14-36) IU/L ALT 15 (<35) IU/L Alkaline Phosphatase 29 L D (38-126) U/L Total Protein 7.2 (6.3-8.2) g/dL Albumin 3.8 (3.5-5.0) g/dL Globulin 3.4 (1.7-4.1) g/dL Albumin/Globulin Ratio 1.1 (1.0-2.8) TSH (0.47-4.68) uIU/mL Urine Color Urine Appearance Urine pH Normal (4.5-8.0) Ur Specific [place] (1.000-1.035) Urine Protein (Negative) Urine Glucose (UA) (Negative) g/dL Urine Ketones (NEGATIVE) Urine Occult Blood (Negative) Urine Nitrate (Negative) Urine Bilirubin (NEGATIVE) Urine Urobilinogen (0.2) E.U./dL Ur Leukocyte Esterase (NEGATIVE) Urine RBC (0-5/HPF) Urine WBC (0-5/HPF) Ur Squamous Epith Cells (0-5/HPF) Urine Bacteria (None) Ur Culture Indicated? Vol Urine Centrifuged Salicylates (<20) mg/dL U Opiates 300ng/mL cut (Negative) Ur Oxycodone Screen (Negative) Urine Methadone Screen (Negative) Acetaminophen 347 H* (10-30) ug/mL Ur Barbiturates Screen (Negative) U Tricyclic Antidepress (Negative) Ur Phencyclidine Scrn (Negative) Ur Amphetamines Screen (Negative) U Methamphetamines Scrn (Negative) Ur MDMA Scrn (Ecstasy) (Negative) U Benzodiazepines Scrn (Negative) Urine Cocaine Screen (Negative) U Marijuana (THC) Screen (Negative) Urine Specific [place] Normal (Normal) Ethyl Alcohol ( - 10) mg/dL Ur Creatinine Normal (Normal) SARS-CoV-2 (PCR) (Negative) MDM Narrative Medical decision making narrative: Tylenol and ibuprofen overdose, unknown exact time. Patient currently unable to provide meaningful history. She is somnolent, but easily arouses to voice. Is confused, but maintaining her airway. Poison control recommended additional testing, we will call back with results. Laboratory work is reviewed, WBC count 11, hemoglobin 14.9, platelets 309, INR 1.0, sodium 137, potassium 4.3, chloride 104, creatinine 0.75, magnesium 1.8, T bili 0.5, AST 23, ALT 14, alk phos 91. Anion gap 13, pH on ABG 7.39. Tox screen significant for Tylenol level of 341. Alcohol and salicylate undetectable, urine tox positive for marijuana. Poison control re-contacted, they recommend starting NAC. is at bedside, he states that patient has been very depressed with her chronic GI issues and the stress of her unresolved symptoms caused her to overdose today. Call placed to hospitalist service, who requested transfer to higher level of care with facility with GI Services. is in agreement at this time. 1620 - Discussed with Dr. Bee of GI. Stated that patient needed to be transferred to a facility with transplant hepatology and recommended [facility] as there are no local transplant hepatology hospitals- 1644 -discussed case with on-call energy systems laboratory director Dr. Pond at . Case reviewed, patient does not appear to meet criteria for transfer for hepatology at this time with stable vitals, stable liver enzymes. We discussed with hospitalist Dr. Proctor, who stated that if liver enzymes were stable on repeat labs she could stay in the hospital here. 2026 I, Dr. Thomas, assumed care of this patient at 6:00 p.m.. I spoke with about an hour ago the accepts the patient onto his service here at . The patient currently denies any suicidal ideation. Critical Care Time <Stephenie Al MD - Last Filed: 07/26/23 23:38> Critical Care Time Critical Care Time: Yes Total Critical Care Time: 36 Attestation: Acetaminophen overdose requiring NAC, multiple discussions with hospitalist, GI services, frequent reassessments. Discharge Plan Departure Patient Disposition: Admitted As Inpatient Clinical Impression: Suicide ideation Overdose on Tylenol Qualifiers: Encounter type: initial encounter Injury intent: intentional self-harm Q ualified Code(s): T39.1X2A - Poisoning by 4-Aminophenol derivatives, intentional self-harm, initial encounter Ibuprofen overdose Qualifiers: Encounter type: initial encounter Injury intent: intentional self-harm Q ualified Code(s): T39.312A - Poisoning by propionic acid derivatives, intentional self-harm, initial encounter Admit Date/Time: 07/22/23 19:48 Admit Provider: Americo Hernandez V
[2023-07-22] MEDS: SODIUM CHLORIDE 0.9% 1,000 ML 1000 ML IV (14:47)
--- NOTE | 2023-07-22 14:56 | PC.NURSE ---
PARKING LOT SUPERVISOR Note: When checking on patient and asking if she can open her eyes the patient moaned and said I'm tired, I don't want like live like this anymore I lowered the patient bed, provided warm blankets, and put the call light within reach. Notifed RN and SHANK BURNISHER.
[2023-07-22 14:58] LABS: Add Manual Diff / Slide Review NO; Basophils Absolute Auto 100 /uL (0-100); Basophils Percent Auto 1.2 % (0-2); Eosinophils Absolute Auto 100 /uL (0-450); Eosinophils Percent Auto 1.3 % (2-4); Hematocrit 45.8 % (36-46); Hemoglobin 14.9 g/dL (12.0-16.0); Lymphocytes Absolute Auto 4100 /uL (1100-4500); Lymphocytes Percent Auto 37.2 % (25-40); Mean Corpuscular HGB Conc 32.5 % (30-36); Mean Corpuscular Hemoglobin 29.8 PG (26-34); Mean Corpuscular Volume 91.5 fL (80-100); Monocytes Absolute Auto 500 /uL (0-900); Monocytes Percent Auto 4.2 % (3-14); Neutrophils Absolute Auto 6200 /uL (1500-7000); Neutrophils Percent Auto 56.1 % (50-75); Platelet Count 309 X10^3/uL (150-400); Red Blood Cell Count 5.01 X10^6/uL (4.0-5.2); Red Cell Distribution Width 15.1 % (11.6-14.8)
--- NOTE | 2023-07-22 15:10 | PC.NURSE ---
patient is more alert and complaining of stomach pain. She stated that she is having stomach pain and that she took some zzzquil along with 1.5 bottles of advil mixed with acetaminophen. She also stated that she has not taken her suboxone for two days since she didn't want to.
[2023-07-22 15:11] LABS: COVID19 -Nasal RAPID Negative (Negative)
[2023-07-22 15:14] LABS: Alanine Aminotransferase 14 IU/L (<35); Albumin 3.9 g/dL (3.5-5.0); Albumin Globulin Ratio 1.1 (1.0-2.8); Alkaline Phosphatase 91 U/L (38-126); Aspartate Aminotransferase 23 IU/L (14-36); Bilirubin Total 0.5 mg/dL (0.2-1.3); Blood Urea Nitrogen 12 mg/dL (7-17); Calcium 9.4 mg/dL (8.4-10.2); Carbon Dioxide 20 mmol/L (22-32); Chloride 104 mmol/L (98-107); Estimated Glomerular Filt Rate > 60 mL/min (>60); Ethanol (ETOH) < 10 mg/dL; Globulin 3.4 g/dL (1.7-4.1); Glucose 186 mg/dL (70-100); HEMOLYSIS < 15 (0-50); Potassium 4.3 mmol/L (3.4-5.1); Salicylate < 1.0 mg/dL (<20); Sodium 137 mmol/L (137-145); Total Protein 7.3 g/dL (6.3-8.2)
[2023-07-22 15:18] LABS: Appearance Urine UA CLEAR; Bilirubin Urine UA NEGATIVE (NEGATIVE); Color Urine UA YELLOW; Glucose Urine UA 3+ g/dL (Negative); Ketones Urine UA NEGATIVE (NEGATIVE); Leukocyte Esterase Urine UA NEGATIVE (NEGATIVE); Nitrite Urine UA NEGATIVE (Negative); Occult Blood Urine UA NEGATIVE (Negative); Protein Urine UA NEGATIVE (Negative); Specific Gravity Urine UA <=1.005 (1.000-1.035); Urobilinogen Urine UA 0.2 E.U./dL (0.2)
[2023-07-22 15:22] LABS: Ur Creatinine Normal (Normal); Ur Specific Gravity Normal (Normal); Urine Amphetamines Negative (Negative); Urine Barbiturates Negative (Negative); Urine Benzodiazepines Negative (Negative); Urine Cocaine Negative (Negative); Urine MDMA Negative (Negative); Urine Methadone Negative (Negative); Urine Methamphetamines Negative (Negative); Urine Opiates Negative (Negative); Urine Oxycodone Negative (Negative); Urine Phencyclidine Negative (Negative); Urine THC Positive (Negative); Urine Tricyclic Antidepressant Negative (Negative); Urine pH Normal (Normal)
[2023-07-22 15:22] LABS: Magnesium 1.8 mg/dL (1.6-2.3)
[2023-07-22 15:26] LABS: Acetaminophen 341 ug/mL (10-30)
[2023-07-22 15:29] LABS: Blood Gas Collection Site Right Brachial; Fractionated Inspired Oxygen 21; HCO3 ABG 17 mmol/L (23-27); Oxygen Saturation ABG 98 % (95-100); PCO2 ABG 27.5 mmHg (35-45); PO2 ABG 109 mmHg (80-100); TCO2 ABG 18 mmol/L (23-27)
[2023-07-22 15:31] LABS: Bacteria Urine Few (2-10); Culture Indicated Urine Cult Not Indicated; RBC Urine 0-1/HPF (0-5/HPF); Squamous Epithelial Cell Urine 0-1 /HPF (0-5/HPF); Urine Volume 10mL (spun); WBC Urine 0-1/HPF (0-5/HPF)
[2023-07-22] MEDS: ONDANSETRON 4 MG/2 ML INJ IV ×3 (15:33→22:08)
--- NOTE | 2023-07-22 15:36 | DI.CT.S_ITS ---
PROCEDURE: CT HEAD/BRAIN WO CON INDICATIONS: OD/AMS TECHNIQUE: Noncontrast 4.5 mm thick angled axial sections acquired from the foramen magnum to the vertex, with coronal and sagittal reformats. For radiation dose reduction, the following was used: automated exposure control, adjustment of mA and/or kV according to patient size. COMPARISON: [facility], CT, CT HEAD/BRAIN WO CON, 05/20/2023, 17:55. FINDINGS: Image quality: Diagnostic. CSF spaces: Basal cisterns are patent. No extra-axial fluid collections. Ventricles are normal in size and shape. Brain: No midline shift. No intracranial masses or hemorrhage. Sunshine-white matter interface is normal. Skull and face: Calvarium and visualized facial bones are intact, without suspicious lesions. Sinuses: Visualized sinuses and mastoids are clear. IMPRESSION: 1. No acute intracranial process. Dictated by: Liz Gurrola M.D. on 07/22/2023 at 16:13 Approved by: iLz Gurrola M.D. on 07/22/2023 at 16:13
--- NOTE | 2023-07-22 15:45 | PC.NURSE ---
CELLOPHANE WRAPPING EXAMINER Note: patient shared with me while crying I'm afraid to live and I'm afraid to . My family doesn't want me anymore and I don't know what to do.
[2023-07-22] MEDS: BUPRENORPHINE/NALOXONE 8MG/2MG 1 TAB SL (15:46)
[2023-07-22 15:52] LABS: Thyroid Stimulating Hormone 0.799 uIU/mL (0.47-4.68)
[2023-07-22] MEDS: WATER IV ×2 (15:58→18:02)
[2023-07-22] MEDS: DEXTROSE 5% IV ×2 (15:58→18:02)
[2023-07-22] MEDS: ACETYLCYSTEINE IV ×2 (15:58→18:02)
--- NOTE | 2023-07-22 16:09 | PC.NURSE ---
CORPORATE SALES MANAGER NOTE: patient taken to CT around 1550
--- NOTE | 2023-07-22 16:44 | PC.NURSE ---
patient denies alcohol usage
[2023-07-22 17:38] LABS: Add Manual Diff / Slide Review NO; Basophils Absolute Auto 100 /uL (0-100); Basophils Percent Auto 0.8 % (0-2); Eosinophils Absolute Auto 100 /uL (0-450); Eosinophils Percent Auto 0.9 % (2-4); Hematocrit 45.8 % (36-46); Hemoglobin 15.1 g/dL (12.0-16.0); Lymphocytes Absolute Auto 3900 /uL (1100-4500); Mean Corpuscular Hemoglobin 30.2 PG (26-34); Mean Corpuscular Volume 91.6 fL (80-100); Monocytes Absolute Auto 300 /uL (0-900); Monocytes Percent Auto 3.1 % (3-14); Neutrophils Absolute Auto 6200 /uL (1500-7000); Neutrophils Percent Auto 58.2 % (50-75); Platelet Count 292 X10^3/uL (150-400); Red Blood Cell Count 5.01 X10^6/uL (4.0-5.2); Red Cell Distribution Width 14.8 % (11.6-14.8); White Blood Cell Count 10.7 X10^3/uL (4.5-11.0)
[2023-07-22 17:49] LABS: INR 1.1 (0.9-1.3)
[2023-07-22 17:56] LABS: Alanine Aminotransferase 15 IU/L (<35); Albumin 3.8 g/dL (3.5-5.0); Albumin Globulin Ratio 1.1 (1.0-2.8); Alkaline Phosphatase 29 U/L (38-126); Aspartate Aminotransferase 15 IU/L (14-36); BUN Creatinine Ratio 22.6 (6-22); Bilirubin Total 0.4 mg/dL (0.2-1.3); Blood Urea Nitrogen 12 mg/dL (7-17); Calcium 8.9 mg/dL (8.4-10.2); Carbon Dioxide 16 mmol/L (22-32); Chloride 108 mmol/L (98-107); Estimated Glomerular Filt Rate > 60 mL/min (>60); Globulin 3.4 g/dL (1.7-4.1); Glucose 193 mg/dL (70-100); HEMOLYSIS 18 (0-50); Potassium 3.9 mmol/L (3.4-5.1); Sodium 141 mmol/L (137-145); Total Protein 7.2 g/dL (6.3-8.2)
[2023-07-22 18:03] LABS: Phosphorous 3.4 mg/dL (2.5-4.5)
--- NOTE | 2023-07-22 18:58 | CM.SWNOTE ---
Addendum entered by Ghada Wayne 07/22/23 19:27: Patient's initial Acetametaphin levels per toxicology screen were 341 and later tested with an increase to a level of 347. POC still pending at this time. Ghada Wayne, [facility] Original Note: ED DISTILLATION OPERATOR HELPER Assessment Note Patient is 52 y/o female who presents to ED via EMS after intentional overdose of a bottle and a half of dual action Ibprofen and Acetametaphine. Patient has hx of two overdoses within the last year (August 2022 and September 2022). 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 Patient states since January she has felt weak and experiencing daily pain, discomfort from bloating, diarrhea and/or constipation. Patient's PCP is Dr. Faustin, patient has [facility] insurance. Patient sees counselor Winsome Melchor MA, [facility] at [facility]. Patient states she had a counseling appt scheduled for Wednesday but she cancelled it because she wasn't feeling well. Patient states she has only left the house for medical appts and all counseling appts have been via phone. Patient gives consent to contact Winsome regarding patient's presentation to ED and for coordinating of care, this DISTILLATION OPERATOR HELPER is unable to identify phone number for counselor at this time. Initially POC for patient has been medical transfer due to concern for patient's GI issues, all hospitals have declined patient and ED provider is pursuing admission for further treatment and evaluation. DISTILLATION OPERATOR HELPER initally speaks with patient's spouse Nathan who reports that patient has been endorsing daily SI due to gastro issues and patient has not left the house in months. Nathan states he left the house this morning at 9am and was only gone for an hour and a half and found patient with the empty bottle of pills. Nathan states he called 911 as soon as he found her. Nathan endorses that he noticed patient was talking a lot about yesterday and looking into end of life plans, Nathan states he has noticed an increase in patient's SI in the last few months. Nathan states that he found out patient was scheduled a gastro f/u appt (for August 2023) while he was out of the house and patient was not informed of this. Nathan endorses that patient has been isolated from all family as they do not inquire about her, visit her or check in on her. DISTILLATION OPERATOR HELPER enters room to meet with patient, present in room is patient's spouse Nathan. Patient presents as A/Ox4. Patient endorses daily thoughts of SI and hopelessness. Patient endorses she has lost weight (30lbs) in recent months due to lack of appetite and issues eating foods due to GI issues. Patient endorses she stays in her room most days and does not leave the house unless she has a medical appt. Patient endorses she can ambulate and get to the bathroom but due to depression has difficulty with daily activities such as brushing teeth and showering. It is reported that patient's spouse manages the cooking, cleaning and medication management for patient. Patient and spouse agree to transport or admission for further medical treatment but in regarding to treatment, patient and spouse endorse preference to d/c to home with outpatient plan. It is the opinion of this DISTILLATION OPERATOR HELPER that patient would benefit from inpatient placement upon medical clearance. Plan: Pending admission for further evaluation and treatment vs. Outpatient follow up. Patient would benefit from coordination of care with outpatient medical and providers. AMRIK Zapata
[2023-07-22 19:23] LABS: Acetaminophen 347 ug/mL (10-30)
--- NOTE | 2023-07-22 20:16 | P.HP_ITS ---
History of Present Illness History of Present Illness Date Patient Seen: 07/22/23 Time Patient Seen: 22:30 Date of Onset of Symptoms: 07/22/23 Chief complaint: SI Overdose Narrative: Shelbie Purdy is a 52yo female with history of Depression with Anxiety, Bipolar Disorder, previous overdose attempts, Type II DM, Gastroparesis, Fibromyalgia, Chronic Pain Syndrome, HIV who presents with intentional tylenol and ibuprofen overdose. She indicates that her quality of life has been poor recently, with her gastroparesis symptoms, chronic pain and fibromyalgia as the main contributors. She felt like she didn't want to take it anymore and around 12:30 pm today she took around 30 pills of Acetaminophen/Ibuprofen combination pills, but approximately one hour later she reportedly took another 60-70 pills of the same combination. After she did this, she decided she did not want to thus came to the ED for further evaluation. After arrival, she also received a phone call that was going to evaluate her for a gastric stimulation implantation, which is giving her some hope. She reports she is having increased heartburn/acid reflux since her ingestion, along with an increase in her chronic back pain, chronic fibromyalgia and abdominal pains. Also reports a headache and nausea but denies any vomiting, bowel movements, melena/hematochezia. Denies any fevers, chest pain, dyspnea, dizziness, confusion or other neurologic symptoms. In the ED, her vitals were unremarkable and her LFTs were normal. A salicylate level was negative though her serum bicarb was 16, but an ABG revealed a pH of 7.40. Her acetaminophen level was 341. She was placed on IV NAC therapy. A repeat acetaminophen level several hours later was 347, though her LFTs were unchanged. The Transplant team was contacted, who felt that she can be managed at [facility] for now given lack of organ damage, but to follow labs and reassess if things change. She was admitted for further care. [facility] Medical History Retained ureteral stent Hx of osteoarthritis Hx of migraine headaches History of liver disease Kidney stone on left side Bipolar disorder Arthritis HIV (human immunodeficiency virus infection) History of gastrointestinal symptoms Anxiety Diabetes mellitus Hypertension GERD (gastroesophageal reflux disease) Fibroids Depression PTSD (post-traumatic stress disorder) Surgical History History of stress incontinence procedure using tension free vaginal tape (2013) History of cystoscopy (2013) S/P functional endoscopic sinus surgery (2002) Status post arthroscopy (2003) Status post laparoscopic supracervical hysterectomy (2011) Status post cholecystectomy (2011) Family History Father Diabetes mellitus Hypertension CVA (cerebral vascular accident) Mother Diabetes mellitus Hypertension CVA (cerebral vascular accident) Hearing impairment Brother Hypertension Social History marital status: number of children: 3 household members: spouse occupational status: disabled Smoking Status: Current every day smoker alcohol intake: never caffeine: Yes Type(s) of exercise: none Meds Home Medications and Allergies Home Medications Medication Instructions Recorded Confirmed Type abacavir 600 mg-dolutegravir 50 1 tab PO DAILY 09/14/22 10/15/22 History mg-lamivudine 300 mg tablet (Triumeq) atomoxetine 40 mg capsule 40 mg PO QAM 09/14/22 10/15/22 History atorvastatin 20 mg tablet 20 mg PO DAILY 09/14/22 10/15/22 History buprenorphine 2 mg-naloxone 0.5 mg 4 tab sublingual DAILY 09/14/22 10/15/22 History sublingual tablet cetirizine 10 mg tablet 10 mg PO DAILY 09/14/22 10/15/22 History clonazepam 1 mg tablet 1.5 mg PO BEDTIME 09/14/22 10/15/22 History clonazepam 1 mg tablet 2 mg PO QAM 09/14/22 10/15/22 History dexlansoprazole 60 mg 60 mg PO DAILY 09/14/22 10/15/22 History capsule,biphase delayed release (Dexilant) empagliflozin 10 mg tablet 10 mg PO QAM 09/14/22 10/15/22 History (Jardiance) gabapentin 800 mg tablet 800 mg PO BID 09/14/22 10/15/22 History metformin 1,000 mg tablet 1,000 mg PO BIDWMEAL 09/14/22 10/15/22 History metoclopramide HCl 10 mg tablet 10 mg PO 4XD 09/14/22 10/15/22 History ondansetron 4 mg disintegrating 4 mg PO 4XD PRN nausea/vomiting 09/14/22 10/15/22 History tablet prazosin 2 mg capsule 2 mg PO BEDTIME 09/14/22 10/15/22 History propranolol 80 mg capsule,extended 80 mg PO DAILY 09/14/22 10/15/22 History release 24 hr spironolactone 50 mg tablet 50 mg PO QAM 09/14/22 10/15/22 History trazodone 150 mg tablet 150 mg PO BEDTIME 09/14/22 10/15/22 History nitrofurantoin 100 mg PO BID #20 caps 09/28/22 10/15/22 Rx monohydrate/macrocrystals 100 mg capsule phenazopyridine 200 mg tablet 200 mg PO TID PRN pain #20 tabs 09/28/22 10/15/22 Rx (Pyridium) ciprofloxacin HCl 500 mg tablet 500 mg PO BID #14 tabs 05/20/23 Rx (Cipro) metoclopramide HCl 10 mg tablet 10 mg PO Q6H PRN nausea and 05/20/23 Rx (Reglan) vomiting #20 tabs omeprazole 20 mg capsule,delayed 20 mg PO DAILY #30 caps 05/20/23 Rx release oxycodone 5 mg tablet 5 mg PO Q6H PRN pain #10 tabs 06/14/23 Rx estradiol 1 mg tablet 1 mg PO DAILY #90 tabs 07/07/23 Rx Allergies Allergy/AdvReac Type Severity Reaction Status Date / Time levofloxacin [LEVOFLOXACIN] Allergy Severe hives Verified 07/22/23 14:50 Sulfa (Sulfonamide Allergy Severe rash Verified 07/22/23 14:50 Antibiotics) [SULFA (SULFONAMIDE ANTIBIOTICS)] amoxicillin [From AUGMENTIN] Allergy Mild rash Verified 07/22/23 14:50 ciprofloxacin [From CIPRO] Allergy Mild rash Verified 07/22/23 14:50 clarithromycin [From BIAXIN] Allergy Mild rash Verified 07/22/23 14:50 clavulanic acid Allergy Mild rash Verified 07/22/23 14:50 [From AUGMENTIN] morphine [MORPHINE] AdvReac Mild n/v Verified 07/22/23 14:50 pregabalin [PREGABALIN] AdvReac Mild lost voice Verified 07/22/23 14:50 Review of Systems Review of Systems Narrative: Gen: denies weight changes, fevers, night sweats HEENT: denies blurred vision, double vision, rhinorrhea. CVS: denies chest pain, palpitations. Resp: denies cough, dyspnea. Abd: positive for abdominal pain, nausea. Denies vomiting, diarrhea, melena, hematochezia. : denies dysuria. MSK: positive for diffuse myalgias/arthaglias, chronic back/flank pain. Denies traumatic injury. Skin: denies easy bruising. Neuro: positive for headaches. Denies blurred/double vision, asymmetric neurologic weakness. Psych: positive for depression, anxiety, thoughts of hopelessness, SI. Denies hallucations. Exam Vital Signs (past 8 hours): - 07/22/23 14:40 07/22/23 14:43 07/22/23 14:44 Temperature 97.9 F Pulse Rate 88 89 Respiratory Rate 15 Blood Pressure 110/55 L 110/55 L Pulse Oximetry 97 97 Oxygen Delivery Method Room Air 07/22/23 14:44 07/22/23 14:53 07/22/23 14:53 Temperature Pulse Rate 87 87 Respiratory Rate 20 22 Blood Pressure 116/60 Pulse Oximetry 98 97 Oxygen Delivery Method 07/22/23 15:00 07/22/23 15:00 07/22/23 15:10 Temperature Pulse Rate 85 Respiratory Rate 20 Blood Pressure 108/59 L 99/54 L Pulse Oximetry 98 Oxygen Delivery Method 07/22/23 15:10 07/22/23 15:20 07/22/23 15:20 Temperature Pulse Rate 91 H 91 H Respiratory Rate 21 18 Blood Pressure 111/55 L Pulse Oximetry 99 98 Oxygen Delivery Method 07/22/23 15:26 07/22/23 15:26 07/22/23 15:30 Temperature Pulse Rate 107 H 100 H Respiratory Rate 20 24 Blood Pressure 123/90 Pulse Oximetry 98 98 Oxygen Delivery Method 07/22/23 15:31 07/22/23 15:31 07/22/23 15:35 Temperature Pulse Rate 100 H Respiratory Rate 20 Blood Pressure 155/78 H 164/73 H Pulse Oximetry 97 Oxygen Delivery Method 07/22/23 15:35 07/22/23 15:40 07/22/23 15:40 Temperature Pulse Rate 103 H 101 H Respiratory Rate 26 H 20 Blood Pressure 140/68 Pulse Oximetry 98 98 Oxygen Delivery Method 07/22/23 15:45 07/22/23 15:45 07/22/23 15:50 Temperature Pulse Rate 100 H Respiratory Rate 22 Blood Pressure 125/58 L 120/69 Pulse Oximetry 99 Oxygen Delivery Method 07/22/23 15:50 07/22/23 15:55 07/22/23 15:55 Temperature Pulse Rate 99 H 98 H Respiratory Rate 24 23 Blood Pressure 117/67 Pulse Oximetry 99 98 Oxygen Delivery Method 07/22/23 16:06 07/22/23 16:07 07/22/23 16:07 Temperature Pulse Rate 99 H 99 H Respiratory Rate Blood Pressure 120/55 L Pulse Oximetry 98 98 Oxygen Delivery Method 07/22/23 16:28 07/22/23 16:28 07/22/23 16:30 Temperature Pulse Rate 96 H Respiratory Rate 24 Blood Pressure 126/65 129/63 Pulse Oximetry 96 Oxygen Delivery Method 07/22/23 16:30 07/22/23 17:00 07/22/23 17:30 Temperature Pulse Rate 94 H 95 H 97 H Respiratory Rate 26 H 24 17 Blood Pressure Pulse Oximetry 96 98 99 Oxygen Delivery Method 07/22/23 17:32 07/22/23 17:32 07/22/23 18:00 Temperature Pulse Rate 96 H Respiratory Rate 15 Blood Pressure 120/60 117/68 Pulse Oximetry 98 Oxygen Delivery Method 07/22/23 18:00 07/22/23 18:09 07/22/23 18:09 Temperature Pulse Rate 100 H 106 H Respiratory Rate 14 19 Blood Pressure 121/59 L Pulse Oximetry 98 99 Oxygen Delivery Method 07/22/23 18:30 07/22/23 18:30 07/22/23 19:00 Temperature Pulse Rate 100 H Respiratory Rate 18 Blood Pressure 117/70 104/67 Pulse Oximetry 99 Oxygen Delivery Method 07/22/23 19:00 07/22/23 19:30 07/22/23 19:30 Temperature Pulse Rate 97 H 93 H Respiratory Rate 17 19 Blood Pressure 112/59 L Pulse Oximetry 98 97 Oxygen Delivery Method 07/22/23 20:00 07/22/23 20:00 Temperature Pulse Rate 94 H Respiratory Rate 19 Blood Pressure 120/57 L Pulse Oximetry 99 Oxygen Delivery Method Oxygen Delivery Method Room Air Narrative Exam Narrative: Gen: appears in no acute distress, looks stated age. Alert and oriented. HEENT: PERRL, sclera anicteric, dry MM Neck: no JVD Resp: no respiratory distress, good air movement bilaterally, lungs CTAB CVS: normal rate, regular rhythm, normal S1 and S2, no m/r/g Abd: mild diffuse TTP throughout abdomen. Bowel sounds present and normal. Non- distended. Ext: no edema. Skin: no rashes, ecchymoses. Neuro: alert and oriented x3, no focal deficit, CN II-XII grossly intact Psych: flattened affect. Does not appear to be reacting to internal stimuli. Objective Imaging CT scan - head: Radiologist's impression: 1. No acute intracranial process. Dictated by: Liz Gurrola M.D. on 07/22/2023 at 16:13 Labs 07/22/23 21:20 07/22/23 17:28 Labs: Laboratory Results - last 24 hr 07/22/23 07/22/23 07/22/23 14:48 14:50 15:14 WBC 11.0 RBC 5.01 Hgb 14.9 Hct 45.8 MCV 91.5 MCH 29.8 MCHC 32.5 RDW 15.1 H Plt Count 309 Neut % (Auto) 56.1 Lymph % (Auto) 37.2 [place] % (Auto) 4.2 Eos % (Auto) 1.3 L Baso % (Auto) 1.2 Neut # (Auto) 6200 Lymph # (Auto) 4100 [place] # (Auto) 500 Eos # (Auto) 100 Baso # (Auto) 100 PT 12.0 INR 1.0 ABG Sample Site ABG pH ABG pCO2 ABG pO2 ABG HCO3 ABG Total CO2 ABG O2 Saturation ABG Base Excess FiO2 Sodium 137 Potassium 4.3 Chloride 104 Carbon Dioxide 20 L BUN 12 Creatinine 0.75 Estimated GFR > 60 BUN/Creatinine Ratio 16.0 Glucose 186 H Calcium 9.4 Phosphorus Magnesium 1.8 Total Bilirubin 0.5 AST 23 ALT 14 Alkaline Phosphatase 91 Total Protein 7.3 Albumin 3.9 Globulin 3.4 Albumin/Globulin Ratio 1.1 TSH 0.799 Urine Color Yellow Urine Appearance Clear Urine pH 5.0 Ur Specific Hospers <=1.005 Urine Protein Negative Urine Glucose (UA) 3+ H Urine Ketones Negative Urine Occult Blood Negative Urine Nitrate Negative Urine Bilirubin Negative Urine Urobilinogen 0.2 Ur Leukocyte Esterase Negative Urine RBC 0-1/hpf Urine WBC 0-1/hpf Ur Squamous Epith Cells 0-1 /hpf Urine Bacteria Few (2-10) H Ur Culture Indicated? Cult not indicated Vol Urine Centrifuged 10ml (spun) Salicylates < 1.0 U Opiates 300ng/mL cut Negative Ur Oxycodone Screen Negative Urine Methadone Screen Negative Acetaminophen 341 H* Ur Barbiturates Screen Negative U Tricyclic Antidepress Negative Ur Phencyclidine Scrn Negative Ur Amphetamines Screen Negative U Methamphetamines Scrn Negative Ur MDMA Scrn (Ecstasy) Negative U Benzodiazepines Scrn Negative Urine Cocaine Screen Negative U Marijuana (THC) Screen Positive H Urine Specific [place]osp[place] Ethyl Alcohol < 10 Ur Creatinine SARS-CoV-2 (PCR) Negative 07/22/23 07/22/23 07/22/23 15:14 15:22 17:28 WBC 10.7 RBC 5.01 Hgb 15.1 Hct 45.8 MCV 91.6 MCH 30.2 MCHC 33.0 RDW 14.8 Plt Count 292 Neut % (Auto) 58.2 Lymph % (Auto) 37.0 [place] % (Auto) 3.1 Eos % (Auto) 0.9 L Baso % (Auto) 0.8 Neut # (Auto) 6200 Lymph # (Auto) 3900 [place] # (Auto) 300 Eos # (Auto) 100 Baso # (Auto) 100 PT 13.0 H INR 1.1 ABG Sample Site Right brachial ABG pH 7.40 ABG pCO2 27.5 L ABG pO2 109 H ABG HCO3 17 L ABG Total CO2 18 L ABG O2 Saturation 98 ABG Base Excess -8.0 L FiO2 21 Sodium 141 Potassium 3.9 Chloride 108 H Carbon Dioxide 16 L BUN 12 Creatinine 0.53 Estimated GFR > 60 BUN/Creatinine Ratio 22.6 H Glucose 193 H Calcium 8.9 Phosphorus 3.4 Magnesium Total Bilirubin 0.4 AST 15 ALT 15 Alkaline Phosphatase 29 L D Total Protein 7.2 Albumin 3.8 Globulin 3.4 Albumin/Globulin Ratio 1.1 TSH Urine Color Urine Appearance Urine pH Normal Ur Specific [place]osp[place] Urine Protein Urine Glucose (UA) Urine Ketones Urine Occult Blood Urine Nitrate Urine Bilirubin Urine Urobilinogen Ur Leukocyte Esterase Urine RBC Urine WBC Ur Squamous Epith Cells Urine Bacteria Ur Culture Indicated? Vol Urine Centrifuged Salicylates U Opiates 300ng/mL cut Ur Oxycodone Screen Urine Methadone Screen Acetaminophen 347 H* Ur Barbiturates Screen U Tricyclic Antidepress Ur Phencyclidine Scrn Ur Amphetamines Screen U Methamphetamines Scrn Ur MDMA Scrn (Ecstasy) U Benzodiazepines Scrn Urine Cocaine Screen U Marijuana (THC) Screen Urine Specific Hospers Normal Ethyl Alcohol Ur Creatinine Normal SARS-CoV-2 (PCR) Assessment & Plan Assessment & Plan narrative: Shelbie Purdy is a 52yo female with history of depression, fibromyalgia, HIV, gastroparesis, chronic pain syndrome, prior suicide attempts who presented today with an intentional tylenol and ibuprofen overdose. # Acetaminophen Overdose: # Ibuprofen Overdose: Reportedly took up to 70-100 pills of combination acetaminophen/ibuprofen between 12:30 to 1:30pm today. Her acetaminophen level is roughly stable since being in the ED, with her LFTs remaining stable after initiation of IV NAC therapy. - Will admit to the hospital and monitor on suicide precautions. - Continue IV NAC therapy for 24 hours. - Monitor CBC, LFT, PT/INR, Acetaminophen levels q6hr. - If LFTs start to worsen, can reach back out to tertiary care center. - If she develops refractory acidosis, shock, BURKE, from ibuprofen, may need transferred as well. - IV Protonix 40 mg BID for now due to ibuprofen ingestion. # Type II DM: - Place on SSI and qACHS accuchecks. # Depression with Anxiety: # Bipolar Disorder: - Treat acute issues as noted above. # Gastroparesis: # Fibromyalgia: # Chronic Pain Syndrome: - Can resume home medications once they are reviewed/verified. # HIV: - Can resume home antiviral therapy once significant other brings in the bottles to confirm. # Tobacco Use Disorder: - Counseled on cessation. Nicoderm 21 mcg ordered. Code Status: Full Code I have seen Shelbie Purdy at [facility] using all aspects of audio/visual telemedicine with nursing assistance. Americo Hernandez MD [place] [facility] Time Spent With Patient Time with patient: 70 minutes or more, with 50% spent counseling/coordinating
[2023-07-22 21:27] LABS: Add Manual Diff / Slide Review NO; Basophils Absolute Auto 200 /uL (0-100); Basophils Percent Auto 1.5 % (0-2); Eosinophils Absolute Auto 100 /uL (0-450); Eosinophils Percent Auto 0.5 % (2-4); Hemoglobin 14.5 g/dL (12.0-16.0); Lymphocytes Absolute Auto 4700 /uL (1100-4500); Lymphocytes Percent Auto 43.9 % (25-40); Mean Corpuscular HGB Conc 32.9 % (30-36); Mean Corpuscular Volume 91.3 fL (80-100); Monocytes Absolute Auto 400 /uL (0-900); Neutrophils Absolute Auto 5300 /uL (1500-7000); Neutrophils Percent Auto 50.1 % (50-75); Platelet Count 293 X10^3/uL (150-400); Red Blood Cell Count 4.82 X10^6/uL (4.0-5.2); White Blood Cell Count 10.6 X10^3/uL (4.5-11.0)
[2023-07-22] MEDS: LACTATED RINGERS 1,000 ML 100 ML IV (22:04)
[2023-07-22] MEDS: PANTOPRAZOLE 40 MG VIAL IV (23:12)
[2023-07-23] VITALS (56 sets, daily range): BP systolic 107–176; BP diastolic 65–108; PULSE 59–116; RESP 11–51; TEMP 36.3–37.1; O2SAT 96–100
[2023-07-23 01:08] LABS: Eosinophils Percent Auto 0.4 % (2-4); Hematocrit 43.9 % (36-46); Hemoglobin 14.3 g/dL (12.0-16.0); INR 1.3 (0.9-1.3); Lymphocytes Percent Auto 38.5 % (25-40); Mean Corpuscular HGB Conc 32.4 % (30-36); Mean Corpuscular Hemoglobin 29.7 PG (26-34); Mean Corpuscular Volume 91.6 fL (80-100); Monocytes Percent Auto 5.5 % (3-14); Neutrophils Percent Auto 54.9 % (50-75); Platelet Count 273 X10^3/uL (150-400); Prothrombin Time 14.9 SECONDS (9.4-12.5); Red Blood Cell Count 4.79 X10^6/uL (4.0-5.2); Red Cell Distribution Width 15.1 % (11.6-14.8); White Blood Cell Count 13.9 X10^3/uL (4.5-11.0)
[2023-07-23 01:09] LABS: Add Manual Diff / Slide Review NO; Basophils Absolute Auto 100 /uL (0-100); Basophils Percent Auto 0.7 % (0-2); Eosinophils Absolute Auto 100 /uL (0-450); Lymphocytes Absolute Auto 5300 /uL (1100-4500); Monocytes Absolute Auto 800 /uL (0-900); Neutrophils Absolute Auto 7600 /uL (1500-7000)
[2023-07-23 01:11] LABS: PTT Partial Thromboplastin Tim 40 SECONDS (25.1-36.5)
[2023-07-23 01:12] LABS: Lactate (Lactic Acid) 0.8 mmol/L (0.7-2.1)
[2023-07-23 01:13] LABS: Alanine Aminotransferase 14 IU/L (<35); Albumin 3.3 g/dL (3.5-5.0); Alkaline Phosphatase 35 U/L (38-126); Aspartate Aminotransferase 17 IU/L (14-36); BUN Creatinine Ratio 17.9 (6-22); Bilirubin Total 0.3 mg/dL (0.2-1.3); Blood Urea Nitrogen 15 mg/dL (7-17); Calcium 8.5 mg/dL (8.4-10.2); Carbon Dioxide 21 mmol/L (22-32); Chloride 108 mmol/L (98-107); Estimated Glomerular Filt Rate > 60 mL/min (>60); Globulin 3.3 g/dL (1.7-4.1); Glucose 124 mg/dL (70-100); HEMOLYSIS < 15 (0-50); Potassium 3.6 mmol/L (3.4-5.1); Sodium 140 mmol/L (137-145); Total Protein 6.6 g/dL (6.3-8.2)
[2023-07-23 01:14] LABS: Acetaminophen 111 ug/mL (10-30)
[2023-07-23] MEDS: OXYCODONE 5 MG/5 ML ORAL SOLUTION PO ×3 (03:10→15:18)
[2023-07-23] MEDS: ONDANSETRON 4 MG/2 ML INJ IV ×5 (03:34→20:47)
[2023-07-23] MEDS: CALCIUM CARBONATE 500 MG TAB 1000 MG PO ×2 (04:51→10:04)
--- NOTE | 2023-07-23 06:23 | PC.NURSE ---
Patient arrived to ICU around 2129. Walked from stretcher to bed with stand-by assist, ambulated well, weakness stated in BLE. SI noted in bedside suicide screen, high risk for suicide, MD aware. AOx4, VSS, NSR, tolerating RA. Lungs clear to auscultation. Tolerating Cons. Carb diet with noted baseline Nausea, patient reports minimal relief with scheduled Zofran. Patient continued to complain about indigestion/heart burn, MD ordered PRN Tums, patient reports minimal relief. Patient became increasingly hypertensive throughout the night and reports not taking her home medications in a few days, MD made aware. PIV x2 intact with LR running at 100mL/hr and Acetylcysteine running per order at 62.5 mL/hr. BG WNL. Voids per BSC, adequate amount of edwin urine noted, no BM noted this shift. 0600 patient complained of chest pain, STAT EKG and trop ordered, no change from previous EKG. Patient reports an increase in her chronic pain, MD ordered PRN Oxycodone, patient reports tolerable relief. at bedside. 1:1 sitter at bedside for patient safety. Plan of care continues.
[2023-07-23 06:26] LABS: Add Manual Diff / Slide Review NO; Basophils Absolute Auto 100 /uL (0-100); Eosinophils Absolute Auto 100 /uL (0-450); Eosinophils Percent Auto 0.8 % (2-4); Hemoglobin 13.5 g/dL (12.0-16.0); Lymphocytes Absolute Auto 3900 /uL (1100-4500); Lymphocytes Percent Auto 31.3 % (25-40); Mean Corpuscular HGB Conc 32.1 % (30-36); Mean Corpuscular Hemoglobin 29.4 PG (26-34); Mean Corpuscular Volume 91.5 fL (80-100); Monocytes Absolute Auto 600 /uL (0-900); Monocytes Percent Auto 5.1 % (3-14); Neutrophils Absolute Auto 7800 /uL (1500-7000); Neutrophils Percent Auto 61.8 % (50-75); Platelet Count 244 X10^3/uL (150-400); Red Blood Cell Count 4.59 X10^6/uL (4.0-5.2); Red Cell Distribution Width 15.1 % (11.6-14.8); White Blood Cell Count 12.6 X10^3/uL (4.5-11.0)
[2023-07-23 06:31] LABS: INR 1.4 (0.9-1.3); Prothrombin Time 15.7 SECONDS (9.4-12.5)
[2023-07-23 06:34] LABS: Creatine Kinase 25 U/L (30-135)
[2023-07-23 06:47] LABS: Troponin I < 0.012 ng/mL (0.01-0.034)
[2023-07-23] MEDS: LACTATED RINGERS 1,000 ML 100 ML IV ×2 (06:47→16:44)
[2023-07-23 06:54] LABS: Acetaminophen 32 ug/mL (10-30); Alanine Aminotransferase 20 IU/L (<35); Albumin 3.2 g/dL (3.5-5.0); Albumin Globulin Ratio 1.1 (1.0-2.8); Alkaline Phosphatase 32 U/L (38-126); Aspartate Aminotransferase 30 IU/L (14-36); BUN Creatinine Ratio 14.8 (6-22); Bilirubin Total 0.3 mg/dL (0.2-1.3); Blood Urea Nitrogen 16 mg/dL (7-17); Calcium 8.6 mg/dL (8.4-10.2); Carbon Dioxide 20 mmol/L (22-32); Chloride 105 mmol/L (98-107); Estimated Glomerular Filt Rate > 60 mL/min (>60); Globulin 2.8 g/dL (1.7-4.1); Glucose 152 mg/dL (70-100); HEMOLYSIS < 15 (0-50); Potassium 3.9 mmol/L (3.4-5.1); Sodium 138 mmol/L (137-145)
[2023-07-23] MEDS: NICOTINE 21 MG PATCH TOP (08:30)
[2023-07-23] MEDS: PROPRANOLOL 10 MG TABLET 20 MG PO ×2 (08:31→20:58)
[2023-07-23] MEDS: PANTOPRAZOLE 40 MG VIAL IV ×2 (08:31→20:47)
[2023-07-23] MEDS: INSULIN LISPRO 100 UNIT/ML 3ML VIAL SUBCUT ×3 (08:31→17:04)
[2023-07-23] MEDS: GABAPENTIN 400 MG CAPSULE 800 MG PO ×2 (08:32→20:46)
[2023-07-23] MEDS: DULOXETINE 30 MG CAPSULE 60 MG PO (08:32)
[2023-07-23] MEDS: ENOXAPARIN 40 MG/0.4 ML SYRINGE SUBCUT (08:32)
[2023-07-23] MEDS: PRAZOSIN 1 MG CAPSULE 2 MG PO ×2 (08:32→20:46)
[2023-07-23] MEDS: METOCLOPRAMIDE HCL 5 MG TABLET 10 MG PO ×4 (08:32→20:47)
[2023-07-23] MEDS: LAMIVUDINE PO (08:51)
[2023-07-23] MEDS: ABACAVIR PO (08:51)
[2023-07-23] MEDS: TRIUMEQ PO (08:51)
--- NOTE | 2023-07-23 09:10 | DI.US.S_ITS ---
PROCEDURE: US RENAL COMPLETE INDICATIONS: ACUTE KIDNEY INJURY TECHNIQUE: Real-time scanning was performed of the kidneys and bladder, with image documentation. COMPARISON: [facility], US, ABDOMEN SONOGRAM, 05/21/2011, 7:35. RG, US ABDOMEN, 12/31/1999, 16:34. FINDINGS: Kidneys: Kidneys are normal in size. Right kidney measures 11.3 cm long; left kidney measures 11.9 cm long. Right renal cortical thickness is 1.4 cm; left renal cortical thickness is 1.8 cm. There is a small scar in the mid right kidney. Renal cortical echotexture is normal. No hydronephrosis or nephrolithiasis. No suspicious solid mass lesions. Bladder: Pre-void bladder volume is 427 mL. Post-void residual is 4 mL. Pre-void images demonstrate no intraluminal masses or stones. On pre-void images, right ureteral jet is noted with color Doppler interrogation. (Of note, ureteral jets may not be detectable in up to 25% of cases due to insufficient differences in specific gravity between ureteral and bladder urine). Miscellaneous: No free pelvic fluid. IMPRESSION: 1. No acute abnormalities in kidneys. Dictated by: Silvia Sosa M.D. on 07/23/2023 at 13:11 Approved by: Silvia Sosa M.D. on 07/23/2023 at 13:21
--- NOTE | 2023-07-23 13:31 | DIET.CONS ---
Dietary Consultation Note Admission Date: 07/22/2023 19:48 Assessment: 52 y F admitted for acetaminophen overdose. PMH of DMII and gastroparesis. Nutrition screened for low MNA. Briefly met with pt and spouse at bedside to assess nutrition needs/menu accommodations for gastroparesis. Pt does not currently follow any specific eating style for gastroparesis. Reports she best tolerates fruits, Ensure, and cottage cheese. Per chart, is going to evaluate her for a gastric stimulation implantation Reports 30 lb (13.6 kg) weight loss from UBW. Limited Nutrition Focused Physical Exam performed on upper body (temporalis muscle, buccal and orbital fat pads, clavicle regions, interosseous muscle): -Mild muscle loss in temporalis muscle -No other significant findings Ht: 172.72 cm Wt: 77 kg (-5.7% within 3 months, non-severe) BMI: 25.8 UBW: 80-85 kg Last BM: 07/21/23 (07/22/23 19:53) MNA: 8 Caden Score: 21 Diet: 07/22/23 Breakfast Carbohydrate Consistent Diet Diet Modifications: Carbohydrate level: Medium (3 CHO) Reflex DM orders: No Nutrition Percent Meal Consumed 0% 07/23/23 09:05 Labs: RBC 4.59 X10^6/uL (4.0-5.2) 07/23/23 06:09 Hgb 13.5 g/dL (12.0-16.0) 07/23/23 06:09 Hct 42.0 % (36-46) 07/23/23 06:09 Creatinine 1.08 mg/dL (0.52-1.04) H 07/23/23 06:09 Lactate 0.8 mmol/L (0.7-2.1) 07/23/23 00:35 Nutrition Diagnosis: Unintended weight loss r/t to decreased ability to consume sufficient energy due to GI distress and pain as evidenced by 5.7% weight loss within 3 months, pt reported 30 lb weight loss from UBW Interventions: 1. Ensure Max Protein BID -pt tolerates Ensure at home 2. Brief gastroparesis MNT provided -AND handout on GP provided 3. Assess for opportunity for further discussion as pt improves EER: [id number] kcals/day (25 kcals/kg compared with [place] [address] Jeor 1.25 stress factor) 65-80 g protein/day (0.9-1 g/kg) Monitoring/Evaluations: PO, ONS tolerance Electronically Signed by: Ann Maloney 07/23/23 13:31 Clinical Dietitian [address] [address]
--- NOTE | 2023-07-23 14:52 | CM.DANOTE ---
Initial DCP Assessment Visit Note Reviewed EMR and team rounds for pt's medical status and initial anticipated d/c needs. Met with pt at bedside in the room to introduce self and role, pt was found to be resting in the recliner, expressing feelings of hopelessness, despair, regret, and was very tearful. She resides with her spouse in their own home in [place], and shares that she doesn't really have a support system outside of her spouse since she became sober, and lost most of her friends/family who are still actively using substances. Payor: Medicare PCP: Yudi Maldonadoinga Faustin Pt is a 53 year-old F with a PMH of depression, anxiety, bipolar disorder, severe gastroparesis, diabetes type II, fibromyalgia, chronic pain syndrome, and HIV. She shares that she has a long-term hx of several suicide attempts, and has been inpt psych at [facility] several times for this. She presented to the ED last evening via EMS after having ingested a large amount of tylenol/ibuprofen, had intended to , but then changed her mind and allowed her to call 911. She was assessed and triaged for possible to transfer to the for concerns of multi-organ failure, however felt that she could be managed at this time here at as long as she remained at stable lab values. In meeting with her, this LEARNING SUPPORT AIDE initiated the conversation of possible placement in an inpt voluntary psych facility for further treatment of her SI and depression. She already has a referral to the Gastroenterology for a possible gastric implant that would improve her gastroparesis, which is the cause of a lot of her sense of hopelessness and depression concerning her disabled status due to ongoing pain/stomach issues. LEARNING SUPPORT AIDE did not start referrals, as she will need to be more medically stable before we send out clinicals for review. DCP will continue to follow and assist with ongoing support and assistance with final d/c needs/recommendations. Discharge Planning/Care Management CM Discharge Assessment Start: 07/23/23 14:20 Freq: Status: Active Protocol: Document 07/23/23 14:21 DPL (Rec: 07/23/23 14:51 DPL [id number]) Discharge Planning Assessment Assigned [employer] IRINA Coulter Advance Directives? No History Provided By Family Member,Medical Record Has Patient been admitted in last 30 No days? Prior Living Arrangements House Household Members spouse Type of transporation used prior to Relies on Others admit Independent with ADL's No: modified independent with spouse assistance Is patient alert and oriented? Yes Needs Assistance With Managing Medications,Home Chores / Shopping Caregiver for Another No Comment Patient is interested in voluntary inpatient tx for SI and depression. Barriers to Discharge No Discharge Plan Psychiatric Facility Transportation Arrangement Spouse Additional Comment Pt will need inpt psych referrals placed within the next few days once she gets closer to being medically cleared for d/c. Whiteboard Updated in Patient Room with Yes name and ext. # of [employer] Review Status In Process Please Provide Date Initial DC 07/23/23 Assessment Was Performed
[2023-07-23] MEDS: MAG HYDROX/ALUM/SIMETH 30 ML UDC PO (15:18)
--- NOTE | 2023-07-23 15:33 | PM.PN.1 ---
Subjective Subjective Interval history: 52 F admitted with intentional tylenol/motrin overdose. Exact number of pills was not known. She was high risk based on nomogram. Tylenol level has come down. Developing BURKE. Patient nauseous with stomach burning. Repeat CMP ordered for this afternoon. If ast/alt continuing to rise can extend NAC infusion for another bag. Exam Vital Signs (past 8 hours): - 07/23/23 08:00 07/23/23 08:00 07/23/23 08:00 Temperature Pulse Rate 80 Respiratory Rate 18 Blood Pressure 173/82 H Pulse Oximetry 96 Oxygen Delivery Method Room Air Oxygen Flow Rate 07/23/23 08:30 07/23/23 09:00 07/23/23 09:18 Temperature Pulse Rate 63 59 L 68 Respiratory Rate 20 17 17 Blood Pressure Pulse Oximetry 99 99 99 Oxygen Delivery Method Oxygen Flow Rate 0 0 07/23/23 09:18 07/23/23 09:30 07/23/23 10:00 Temperature Pulse Rate 72 68 Respiratory Rate 14 26 H Blood Pressure 162/70 H Pulse Oximetry 98 99 Oxygen Delivery Method Oxygen Flow Rate 07/23/23 10:30 07/23/23 11:00 07/23/23 11:30 Temperature Pulse Rate 74 69 85 Respiratory Rate 23 14 22 Blood Pressure Pulse Oximetry 98 99 97 Oxygen Delivery Method Oxygen Flow Rate 07/23/23 12:00 07/23/23 12:00 07/23/23 12:03 Temperature 98.8 F Pulse Rate 72 Respiratory Rate 13 Blood Pressure 152/72 H Pulse Oximetry 98 Oxygen Delivery Method Room Air Oxygen Flow Rate 0 07/23/23 12:03 07/23/23 12:30 07/23/23 13:00 Temperature Pulse Rate 72 94 H 102 H Respiratory Rate 18 16 30 H Blood Pressure Pulse Oximetry 98 98 Oxygen Delivery Method Oxygen Flow Rate 07/23/23 13:30 07/23/23 14:17 07/23/23 14:30 Temperature Pulse Rate 85 73 74 Respiratory Rate 33 H 16 Blood Pressure Pulse Oximetry 98 100 98 Oxygen Delivery Method Oxygen Flow Rate 07/23/23 15:00 07/23/23 15:27 07/23/23 15:27 Temperature 97.8 F Pulse Rate 67 73 Respiratory Rate 25 H 29 H Blood Pressure 147/108 H Pulse Oximetry 98 99 Oxygen Delivery Method Oxygen Flow Rate 0 Oxygen Delivery Method Room Air Oxygen Flow Rate 0 Narrative Exam Narrative: Gen: appears in no acute distress, looks stated age. Alert and oriented. HEENT: PERRL, sclera anicteric, dry MM Neck: no JVD Resp: no respiratory distress, good air movement bilaterally, lungs CTAB CVS: normal rate, regular rhythm, normal S1 and S2, no m/r/g Abd: mild diffuse TTP throughout abdomen. Bowel sounds present and normal. Non-distended. Ext: no edema. Skin: no rashes, ecchymoses. Neuro: alert and oriented x3, no focal deficit, CN II-XII grossly intact Psych: flattened affect. Does not appear to be reacting to internal stimuli. Objective Labs 07/23/23 06:09 07/23/23 06:09 Labs: Laboratory Results - last 24 hr 07/22/23 07/22/23 07/22/23 14:50 17:28 21:20 WBC 10.7 10.6 RBC 5.01 4.82 Hgb 15.1 14.5 Hct 45.8 44.0 MCV 91.6 91.3 MCH 30.2 30.0 MCHC 33.0 32.9 RDW 14.8 15.0 H Plt Count 292 293 Neut % (Auto) 58.2 50.1 Lymph % (Auto) 37.0 43.9 H [place] % (Auto) 3.1 4.0 Eos % (Auto) 0.9 L 0.5 L Baso % (Auto) 0.8 1.5 Neut # (Auto) 6200 5300 Lymph # (Auto) 3900 4700 H [place] # (Auto) 300 400 Eos # (Auto) 100 100 Baso # (Auto) 100 200 H PT 13.0 H INR 1.1 APTT Sodium 141 Potassium 3.9 Chloride 108 H Carbon Dioxide 16 L BUN 12 Creatinine 0.53 Estimated GFR > 60 BUN/Creatinine Ratio 22.6 H Glucose 193 H Lactate Calcium 8.9 Phosphorus 3.4 Total Bilirubin 0.4 AST 15 ALT 15 Alkaline Phosphatase 29 L D Total Creatine Kinase Troponin I Total Protein 7.2 Albumin 3.8 Globulin 3.4 Albumin/Globulin Ratio 1.1 TSH 0.799 Acetaminophen 347 H* 07/23/23 07/23/23 00:35 06:09 WBC 13.9 H 12.6 H RBC 4.79 4.59 Hgb 14.3 13.5 Hct 43.9 42.0 MCV 91.6 91.5 MCH 29.7 29.4 MCHC 32.4 32.1 RDW 15.1 H 15.1 H Plt Count 273 244 Neut % (Auto) 54.9 61.8 Lymph % (Auto) 38.5 31.3 [place] % (Auto) 5.5 5.1 Eos % (Auto) 0.4 L 0.8 L Baso % (Auto) 0.7 1.0 Neut # (Auto) 7600 H 7800 H Lymph # (Auto) 5300 H 3900 [place] # (Auto) 800 600 Eos # (Auto) 100 100 Baso # (Auto) 100 100 PT 14.9 H 15.7 H INR 1.3 1.4 H APTT 40 H Sodium 140 138 Potassium 3.6 3.9 Chloride 108 H 105 Carbon Dioxide 21 L 20 L BUN 15 16 Creatinine 0.84 1.08 H Estimated GFR > 60 > 60 BUN/Creatinine Ratio 17.9 14.8 Glucose 124 H 152 H Lactate 0.8 Calcium 8.5 8.6 Phosphorus Total Bilirubin 0.3 0.3 AST 17 30 ALT 14 20 Alkaline Phosphatase 35 L 32 L Total Creatine Kinase 25 L Troponin I < 0.012 Total Protein 6.6 6.0 L Albumin 3.3 L 3.2 L Globulin 3.3 2.8 Albumin/Globulin Ratio 1.0 1.1 TSH Acetaminophen 111 H* 32 H PFSH Medical History Retained ureteral stent Hx of osteoarthritis Hx of migraine headaches History of liver disease Kidney stone on left side Bipolar disorder Arthritis HIV (human immunodeficiency virus infection) History of gastrointestinal symptoms Anxiety Diabetes mellitus Hypertension GERD (gastroesophageal reflux disease) Fibroids Depression PTSD (post-traumatic stress disorder) Surgical History History of stress incontinence procedure using tension free vaginal tape (2013) History of cystoscopy (2013) S/P functional endoscopic sinus surgery (2002) Status post arthroscopy (2003) Status post laparoscopic supracervical hysterectomy (2011) Status post cholecystectomy (2011) Family History Father Diabetes mellitus Hypertension CVA (cerebral vascular accident) Mother Diabetes mellitus Hypertension CVA (cerebral vascular accident) Hearing impairment Brother Hypertension Social History marital status: number of children: 3 household members: spouse occupational status: disabled Smoking Status: Current every day smoker alcohol intake: never caffeine: Yes Type(s) of exercise: none Assessment & Plan Assessment & Plan narrative: Shelbie Purdy is a 52yo female with history of depression, fibromyalgia, HIV, gastroparesis, chronic pain syndrome, prior suicide attempts who presented today with an intentional tylenol and ibuprofen overdose. # Acetaminophen Overdose: # Ibuprofen Overdose: Reportedly took maybe 100 pills of combination acetaminophen/ibuprofen between 12:30 to 1:30pm on 07/21. Her acetaminophen level did fall today, remains on NAC. AST/ALT slight increase but still normal. If rising this afternoon will extend NAC infusion. - Will admit to the hospital and monitor on suicide precautions. - Continue IV NAC therapy for 24 hours. - Monitor CBC, LFT, PT/INR, Acetaminophen levels q6hr. - If LFTs start to worsen, can reach back out to tertiary care center. - If she develops refractory acidosis, shock, BURKE, from ibuprofen, may need transferred as well. - IV Protonix 40 mg BID for now due to ibuprofen ingestion. # BURKE - likely due to ibuprofen ingestion. Continue IV fluids - renal ultrasound ordered today was unremarkable. # Type II DM: - Place on SSI and qACHS accuchecks. # Depression with Anxiety: # Bipolar Disorder: - Continue home medications. # Gastroparesis: # Fibromyalgia: # Chronic Pain Syndrome: - Can resume home medications once they are reviewed/verified. # HIV: - Continue home antiviral therapy # Tobacco Use Disorder: - Counseled on cessation. Nicoderm 21 mcg ordered. Code Status: Full Code, surrogate is patient's spouse DVT: SCDs given ibuprofen ingestion, concern for GI bleed possibility. Dispo: Inpatient, discuss with case management SI risk and if need for inpatient treatment after medically stable, will likely need a few days of liver monitoring given amount of pills ingested. Time Spent With Patient Time with patient: 70 minutes or more, with 50% spent counseling/coordinating Quality VTE Deep Vein Thrombosis/Pulmonary Embolism Present on Admission: No
[2023-07-23 16:40] LABS: Acetaminophen < 10 ug/mL (10-30); Alanine Aminotransferase 20 IU/L (<35); Albumin Globulin Ratio 1.1 (1.0-2.8); Alkaline Phosphatase 38 U/L (38-126); Aspartate Aminotransferase 21 IU/L (14-36); BUN Creatinine Ratio 14.7 (6-22); Bilirubin Total 0.4 mg/dL (0.2-1.3); Blood Urea Nitrogen 14 mg/dL (7-17); Calcium 9.4 mg/dL (8.4-10.2); Carbon Dioxide 17 mmol/L (22-32); Chloride 108 mmol/L (98-107); Estimated Glomerular Filt Rate > 60 mL/min (>60); Globulin 3.5 g/dL (1.7-4.1); Glucose 150 mg/dL (70-100); HEMOLYSIS 27 (0-50); Potassium 3.7 mmol/L (3.4-5.1); Sodium 138 mmol/L (137-145); Total Protein 7.5 g/dL (6.3-8.2)
[2023-07-23] MEDS: TRAZODONE 50 MG TABLET 150 MG PO (20:46)
[2023-07-23] MEDS: SODIUM CHLORIDE 0.9% FLUSH 10 ML IV (20:48)
[2023-07-23] MEDS: clonazePAM 0.5 MG TABLET 1 MG PO (21:27)
--- NOTE | 2023-07-23 23:49 | PC.NURSE ---
pt is crying , asks the pt whats wrong? pt response she regeret what she did and worried about her kids. is bedside.
[2023-07-24] VITALS (17 sets, daily range): BP systolic 130–137; BP diastolic 61–65; PULSE 63–80; RESP 14–51; TEMP 36.6; O2SAT 97–100
[2023-07-24] MEDS: ONDANSETRON 4 MG/2 ML INJ IV ×3 (01:00→08:13)
[2023-07-24] MEDS: LACTATED RINGERS 1,000 ML 100 ML IV (02:48)
[2023-07-24] MEDS: OXYCODONE 5 MG/5 ML ORAL SOLUTION PO ×2 (02:54→08:49)
[2023-07-24] MEDS: BENZONATATE 100 MG CAPSULE 200 MG PO (03:07)
[2023-07-24 04:36] LABS: Add Manual Diff / Slide Review NO; Basophils Absolute Auto 100 /uL (0-100); Basophils Percent Auto 1.2 % (0-2); Eosinophils Absolute Auto 100 /uL (0-450); Eosinophils Percent Auto 1.1 % (2-4); Hematocrit 37.8 % (36-46); Hemoglobin 12.5 g/dL (12.0-16.0); Lymphocytes Absolute Auto 3400 /uL (1100-4500); Lymphocytes Percent Auto 32.9 % (25-40); Mean Corpuscular HGB Conc 33.1 % (30-36); Mean Corpuscular Hemoglobin 29.9 PG (26-34); Mean Corpuscular Volume 90.2 fL (80-100); Monocytes Absolute Auto 500 /uL (0-900); Monocytes Percent Auto 4.5 % (3-14); Neutrophils Absolute Auto 6200 /uL (1500-7000); Neutrophils Percent Auto 60.3 % (50-75); Platelet Count 212 X10^3/uL (150-400); Red Blood Cell Count 4.19 X10^6/uL (4.0-5.2); Red Cell Distribution Width 14.7 % (11.6-14.8); White Blood Cell Count 10.4 X10^3/uL (4.5-11.0)
[2023-07-24 04:37] LABS: INR 1.2 (0.9-1.3)
[2023-07-24 04:39] LABS: PTT Partial Thromboplastin Tim 38 SECONDS (25.1-36.5)
[2023-07-24 04:42] LABS: Alanine Aminotransferase 16 IU/L (<35); Albumin 3.3 g/dL (3.5-5.0); Albumin Globulin Ratio 1.1 (1.0-2.8); Alkaline Phosphatase 61 U/L (38-126); Aspartate Aminotransferase 19 IU/L (14-36); BUN Creatinine Ratio 19.5 (6-22); Bilirubin Total 0.4 mg/dL (0.2-1.3); Blood Urea Nitrogen 15 mg/dL (7-17); Calcium 9.1 mg/dL (8.4-10.2); Carbon Dioxide 19 mmol/L (22-32); Chloride 109 mmol/L (98-107); Estimated Glomerular Filt Rate > 60 mL/min (>60); Globulin 3.1 g/dL (1.7-4.1); Glucose 137 mg/dL (70-100); HEMOLYSIS < 15 (0-50); Magnesium 1.8 mg/dL (1.6-2.3); Potassium 3.6 mmol/L (3.4-5.1); Sodium 134 mmol/L (137-145); Total Protein 6.4 g/dL (6.3-8.2)
[2023-07-24] MEDS: METOCLOPRAMIDE HCL 5 MG TABLET 10 MG PO (07:38)
--- NOTE | 2023-07-24 07:44 | P.DS_ITS ---
History of Present Illness History of Present Illness Date Patient Seen: 07/24/23 Chief complaint: SI Overdose Narrative: Shelbie Purdy is a 52yo female with history of Depression with Anxiety, Bipolar Disorder, previous overdose attempts, Type II DM, Gastroparesis, Fibromyalgia, Chronic Pain Syndrome, HIV who presents with intentional tylenol and ibuprofen overdose. She indicates that her quality of life has been poor recently, with her gastroparesis symptoms, chronic pain and fibromyalgia as the main contributors. She felt like she didn't want to take it anymore and around 12:30 pm today she took around 30 pills of Acetaminophen/Ibuprofen combination pills, but approximately one hour later she reportedly took another 60-70 pills of the same combination. After she did this, she decided she did not want to thus came to the ED for further evaluation. After arrival, she also received a phone call that was going to evaluate her for a gastric stimulation implantation, which is giving her some hope. She reports she is having increased heartburn/acid reflux since her ingestion, along with an increase in her chronic back pain, chronic fibromyalgia and abdominal pains. Also reports a headache and nausea but denies any vomiting, bowel movements, melena/hematochezia. Denies any fevers, chest pain, dyspnea, dizziness, confusion or other neurologic symptoms. In the ED, her vitals were unremarkable and her LFTs were normal. A salicylate level was negative though her serum bicarb was 16, but an ABG revealed a pH of 7.40. Her acetaminophen level was 341. She was placed on IV NAC therapy. A repeat acetaminophen level several hours later was 347, though her LFTs were unchanged. The Transplant team was contacted, who felt that she can be managed at [facility] for now given lack of organ damage, but to follow labs and reassess if things change. She was admitted for further care. Been much happier Discharge Providers Provider Date of admission: 07/22/23 19:48 Discharge Date: 07/24/23 Primary care physician: Nidhi Faustin, Consults: 07/22/23 18:53 [place] [facility] [place] [facility] [place] Comment: 07/22/23 20:14 [place] to [facility] [place] [facility] Comment: Discharge provider: Bell Colin MD Summary Hospital Course Hospital Course: Shelbie Purdy is a 52yo female with history of depression, fibromyalgia, HIV, gastroparesis, chronic pain syndrome, prior suicide attempts who presented with an intentional tylenol and ibuprofen overdose. # Acetaminophen Overdose: # Ibuprofen Overdose: Reportedly took maybe 100 pills of combination acetaminophen/ibuprofen between 12:30 to 1:30pm on 07/21. She was treated with an appropriate 1-2 day of an N- acetylcysteine. -the patient denied any further self-harm or suicidal ideation now that she has been given an option of gastric stimulator/pacemaker at to treat her gastroparesis - IV Protonix 40 mg BID due to ibuprofen ingestion. # BURKE - likely due to ibuprofen ingestion. Treated with IV fluids - renal ultrasound ordered was unremarkable. # Type II DM: -treated with SSI and qACHS accuchecks. # Depression with Anxiety: # Bipolar Disorder: - Continue home medications. # Gastroparesis: She will be going to [facility] for consideration of gastric stimulator to treat the gastroparesis. # Fibromyalgia: # Chronic Pain Syndrome: -continue on Suboxone. # HIV: - Continue home antiviral therapy # Tobacco Use Disorder: - Counseled on cessation. Shamar 21. She was assessed by addiction social worker as being low risk for repeating this suicidal gesture/attempt any time soon. The possibility of an implantable device to treat her most frustrating physical symptom is her new focus. Status at Discharge Cognitive/behavioral status at discharge: oriented and calm Functional status at discharge: independent ambulation Overall status at discharge: patient is back to baseline Exam Vital Signs (past 8 hours): - 07/23/23 23:57 07/23/23 23:57 07/24/23 00:00 Temperature Pulse Rate 81 79 Respiratory Rate 34 H 24 Blood Pressure 107/65 Pulse Oximetry 98 98 Oxygen Flow Rate 07/24/23 00:30 07/24/23 01:00 07/24/23 01:30 Temperature Pulse Rate 76 80 72 Respiratory Rate 24 18 24 Blood Pressure Pulse Oximetry 99 97 97 Oxygen Flow Rate 07/24/23 02:00 07/24/23 02:30 07/24/23 03:00 Temperature 97.9 F Pulse Rate 80 71 66 Respiratory Rate 51 H 28 H 25 H Blood Pressure Pulse Oximetry 98 97 98 Oxygen Flow Rate 07/24/23 03:30 07/24/23 04:00 07/24/23 04:30 Temperature Pulse Rate 67 79 70 Respiratory Rate 25 H 25 H 33 H Blood Pressure Pulse Oximetry 97 97 97 Oxygen Flow Rate 07/24/23 04:44 07/24/23 04:44 07/24/23 04:44 Temperature 97.9 F Pulse Rate 72 Respiratory Rate 14 Blood Pressure 137/65 Pulse Oximetry 99 Oxygen Flow Rate 0 07/24/23 05:00 07/24/23 05:30 07/24/23 06:00 Temperature Pulse Rate 68 67 67 Respiratory Rate 27 H 27 H 22 Blood Pressure Pulse Oximetry 97 97 100 Oxygen Flow Rate 07/24/23 06:30 07/24/23 07:00 07/24/23 07:19 Temperature 97.9 F Pulse Rate 63 65 69 Respiratory Rate 21 22 20 Blood Pressure Pulse Oximetry 98 98 100 Oxygen Flow Rate 0 07/24/23 07:19 Temperature Pulse Rate Respiratory Rate Blood Pressure 130/61 Pulse Oximetry Oxygen Flow Rate Oxygen Delivery Method Room Air Oxygen Flow Rate 0 Narrative Exam Narrative: Alert and oriented x3. No apparent distress. is at bedside and is reassuring. Denies suicidal ideation. Heart is regular rate and rhythm without murmur. Lungs are clear to auscultation bilaterally. Extremities have no ankle edema. Abdomen is soft, bowel sounds positive, nontender, no organomegaly. Objective Labs 07/24/23 04:15 07/24/23 04:15 Labs: Laboratory Results - last 24 hr 07/23/23 07/24/23 16:15 04:15 WBC 10.4 RBC 4.19 Hgb 12.5 Hct 37.8 MCV 90.2 MCH 29.9 MCHC 33.1 RDW 14.7 Plt Count 212 Neut % (Auto) 60.3 Lymph % (Auto) 32.9 [place] % (Auto) 4.5 Eos % (Auto) 1.1 L Baso % (Auto) 1.2 Neut # (Auto) 6200 Lymph # (Auto) 3400 [place] # (Auto) 500 Eos # (Auto) 100 Baso # (Auto) 100 PT 14.0 H INR 1.2 APTT 38 H Sodium 138 134 L Potassium 3.7 3.6 Chloride 108 H 109 H Carbon Dioxide 17 L 19 L BUN 14 15 Creatinine 0.95 0.77 Estimated GFR > 60 > 60 BUN/Creatinine Ratio 14.7 19.5 Glucose 150 H 137 H Calcium 9.4 9.1 Magnesium 1.8 Total Bilirubin 0.4 0.4 AST 21 19 ALT 20 16 Alkaline Phosphatase 38 61 Total Protein 7.5 6.4 Albumin 4.0 3.3 L Globulin 3.5 3.1 Albumin/Globulin Ratio 1.1 1.1 Acetaminophen < 10 PFSH Medical History Retained ureteral stent Hx of osteoarthritis Hx of migraine headaches History of liver disease Kidney stone on left side Bipolar disorder Arthritis HIV (human immunodeficiency virus infection) History of gastrointestinal symptoms Anxiety Diabetes mellitus Hypertension GERD (gastroesophageal reflux disease) Fibroids Depression PTSD (post-traumatic stress disorder) Surgical History History of stress incontinence procedure using tension free vaginal tape (2013) History of cystoscopy (2013) S/P functional endoscopic sinus surgery (2002) Status post arthroscopy (2003) Status post laparoscopic supracervical hysterectomy (2011) Status post cholecystectomy (2011) Family History Father Diabetes mellitus Hypertension CVA (cerebral vascular accident) Mother Diabetes mellitus Hypertension CVA (cerebral vascular accident) Hearing impairment Brother Hypertension Social History marital status: number of children: 3 household members: spouse occupational status: disabled Smoking Status: Current every day smoker alcohol intake: never caffeine: Yes Type(s) of exercise: none Discharge Plan Discharge Plan Patient Disposition: Home Discharge orders & Medications Prescriptions: New clonazepam 0.5 mg Tablet 1 mg PO TID PRN (Reason: Anxiety) Qty: 60 0RF buprenorphine-naloxone [Suboxone] 2-0.5 mg film 4 film buccal DAILY Qty: 120 0RF Rx Instructions: place 1 strip/tab under (each) side of tongue Continued estradiol 1 mg tablet 1 mg PO DAILY Qty: 90 3RF cetirizine 10 mg Tablet 10 mg PO DAILY clonazepam 1 mg tablet 1 mg PO 3XD gabapentin 800 mg tablet 800 mg PO BID trazodone 150 mg tablet 150 mg PO BEDTIME ondansetron 4 mg tablet,disintegrating 4 mg PO 4XD PRN (Reason: nausea/vomiting) Patient Comments: DISSOLVE 1 tablet ON TONGUE 3 TO 4 TIMES DAILY if needed FOR NAUSEA AND VOMITING prazosin 2 mg Capsule 2 mg PO BID spironolactone 50 mg tablet 50 mg PO QAM atomoxetine 40 mg capsule 40 mg PO QAM buprenorphine-naloxone 2-0.5 mg tablet, sublingual 4 tab SUBLINGUAL DAILY propranolol 80 mg Capsule,Extended Release 24hr 80 mg PO DAILY dexlansoprazole [Dexilant] 60 mg Capsule,Biphase Delayed Releas 60 mg PO DAILY Triumeq 600-50-300 mg tablet 1 tab PO DAILY atorvastatin 20 mg tablet 20 mg PO DAILY duloxetine 60 mg Capsule,Delayed Release(Dr/Ec) 60 mg PO DAILY Invokamet 150-1,000 mg Tablet 1 tab PO BID Follow up/Referrals: Nidhi Faustin DO [Primary Care Provider] - Diet/Activity/Treatments Diet: Diet as Tolerated Visit Report/Discharge Packet Stand Alone Forms: Patient Portal/API, Stroke Signs & Symptoms Discharge Data Primary Care Provider: Nidhi Faustin Quality VTE Deep Vein Thrombosis/Pulmonary Embolism Present on Admission: No
[2023-07-24] MEDS: DULOXETINE 30 MG CAPSULE 60 MG PO (08:12)
[2023-07-24] MEDS: ENOXAPARIN 40 MG/0.4 ML SYRINGE SUBCUT (08:12)
[2023-07-24] MEDS: PRAZOSIN 1 MG CAPSULE 2 MG PO (08:12)
[2023-07-24] MEDS: NICOTINE 21 MG PATCH TOP (08:12)
[2023-07-24] MEDS: PROPRANOLOL 10 MG TABLET 20 MG PO (08:13)
[2023-07-24] MEDS: GABAPENTIN 400 MG CAPSULE 800 MG PO (08:13)
[2023-07-24] MEDS: PANTOPRAZOLE 40 MG VIAL IV (08:13)
[2023-07-24] MEDS: clonazePAM 0.5 MG TABLET 1 MG PO (08:13)
[2023-07-24] MEDS: TRIUMEQ PO (08:15)
[2023-07-24] MEDS: LAMIVUDINE PO (08:15)
[2023-07-24] MEDS: ABACAVIR PO (08:15)
[2023-07-24] MEDS: SODIUM CHLORIDE 0.9% FLUSH 10 ML IV (08:15)
--- NOTE | 2023-07-24 10:57 | CM.DPC ---
DCP Discharge Home Per MD, pt is medically cleared and stable for discharge and denying suicidal ideation or plan and no identified barriers to discharge. SW met bedside with pt and spouse and explained role and pt confirms that she feels the past 24 hours she has had a break through in talking with her spouse and family and also insights from her outpt counseling. Pt focused and able to participate in discussion and not tearful but insightful and willing to provide information freely. Pt has quite the hx with danica HIV from a previous partner who was aware he was HIV+ and purposely hid this information from multiple partners and was legally charged and spent 13 yrs in penitentiary but has since been released. Pt denies Suicidal ideation or a plan and spouse and pt have a safety plan for home discharge and pt denies the need for Inpt MH tx at this time and preference is to talk to her Psychiatrist for med management and has an appointment set with her outpt MH counselor with [facility]. Spouse confirms he is comfortable with pt discharging to least restrictive situation. Pt and spouse aware of the resources and aware they can return to the ED if needed after discharge. Pt aware how complex her chronic medical conditions feeds into her mental health depression and frustrations. JULIANO updated MD and both MD and SW feel pt safe for discharge home to the community with outpt supports and resources. SW updated RN. Plan: Patient to discharge home today via spouse POV and close outpt f/u and emergent counseling appointment scheduled. IRINA Epstein
== END 2023-07-24 09:47 | disposition home or self-care (01) | DRG 918 ==
LOC: ED 16:23 → AC 19:49 → ICU 07-23 06:55 → AC 07-23 12:55 → ICU 07-23 12:55
PROVIDERS: Emergency Medicine; Internal Medicine; Admitting Provider Hospitalist; Emergency Provider Family Medicine Addiction Medicine; PCP Family Medicine; Visit Provider Hospitalist
DX: T39.1X2A Poisoning by 4-Aminophenol derivatives, intentional self-harm, initial encounter (principal); N17.9 Acute kidney failure, unspecified; B20 Human immunodeficiency virus [HIV] disease; T39.312A Poisoning by propionic acid derivatives, intentional self-harm, initial encounter; F41.9 Anxiety disorder, unspecified; F31.9 Bipolar disorder, unspecified; E11.43 Type 2 diabetes mellitus with diabetic autonomic (poly)neuropathy; K31.84 Gastroparesis; M79.7 Fibromyalgia; G89.4 Chronic pain syndrome; I10 Essential (primary) hypertension; K21.9 Gastro-esophageal reflux disease without esophagitis; F17.210 Nicotine dependence, cigarettes, uncomplicated; Z79.84 Long term (current) use of oral hypoglycemic drugs
CPT/HCPCS: 36415; 36600; 70450; 76770; 80053; 80305; 80320; 80329; 81001; 82550; 82805; 82962; 83605; 83735; 84100; 84443; 84484; 85025; 85610; 85730; 87635; 93005; 96365; 96366; 96375; 96376; 99285; 99291; C9113; G0480; J0132; J1650; J1815; J2405

== ENCOUNTER 2023-07-27 03:19 | Emergency (ER) | payer MEDICARE, OTHER, SELFPAY ==
[2023-07-22 19:53] VITALS: BMI 25.8
[2023-07-27] VITALS (8 sets, daily range): BP systolic 115–147; BP diastolic 56–77; PULSE 70–86; RESP 18; TEMP 36.4–36.7; O2SAT 96–99; BMI 26.3
[2023-07-27 03:39] LABS: Add Manual Diff / Slide Review NO; Basophils Absolute Auto 100 /uL (0-100); Basophils Percent Auto 0.6 % (0-2); Eosinophils Absolute Auto 200 /uL (0-450); Eosinophils Percent Auto 1.2 % (2-4); Hematocrit 40.8 % (36-46); Hemoglobin 13.5 g/dL (12.0-16.0); Lymphocytes Absolute Auto 2900 /uL (1100-4500); Lymphocytes Percent Auto 18.8 % (25-40); Mean Corpuscular HGB Conc 33.2 % (30-36); Mean Corpuscular Hemoglobin 30.2 PG (26-34); Mean Corpuscular Volume 91.1 fL (80-100); Monocytes Absolute Auto 500 /uL (0-900); Monocytes Percent Auto 3.2 % (3-14); Neutrophils Absolute Auto 11800 /uL (1500-7000); Neutrophils Percent Auto 76.2 % (50-75); Platelet Count 259 X10^3/uL (150-400); Red Blood Cell Count 4.48 X10^6/uL (4.0-5.2); Red Cell Distribution Width 14.5 % (11.6-14.8); White Blood Cell Count 15.5 X10^3/uL (4.5-11.0)
--- NOTE | 2023-07-27 03:41 | ED.NAVMDI ---
HPI - Nausea/Vomiting/Diarrhea General Chief complaint: Nausea/Vomiting/Diarrhea Stated complaint: vomiting blood Time Seen by Provider: 07/27/23 03:20 Source: patient Mode of arrival: Ambulatory History of Present Illness HPI Narrative: 52-year-old female with history HIV, gastroparesis, diabetes, recent Tylenol and ibuprofen overdose presents by private vehicle from home for episode of bright red blood in her emesis. Patient called her doctor's line, who referred patient to the ED. Patient states that she has some lower abdominal discomfort which is similar to when she needs to have a bowel movement, denies any other current complaints. DC'd from hospital 07/23 after staying for 2 days after her overdose. Related Data Home Medications Medication Instructions Recorded Confirmed abacavir 600 mg-dolutegravir 50 1 tab PO DAILY 09/14/22 07/27/23 mg-lamivudine 300 mg tablet (Triumeq) atomoxetine 40 mg capsule 40 mg PO QAM 09/14/22 07/27/23 buprenorphine 2 mg-naloxone 0.5 mg 4 tab sublingual DAILY 09/14/22 07/27/23 sublingual tablet cetirizine 10 mg tablet 10 mg PO DAILY 09/14/22 07/27/23 clonazepam 1 mg tablet 1 mg PO 3XD 09/14/22 07/27/23 dexlansoprazole 60 mg 60 mg PO DAILY 09/14/22 07/27/23 capsule,biphase delayed release (Dexilant) gabapentin 800 mg tablet 800 mg PO BID 09/14/22 07/27/23 ondansetron 4 mg disintegrating 4 mg PO 4XD PRN nausea/vomiting 09/14/22 07/27/23 tablet prazosin 2 mg capsule 2 mg PO BID 09/14/22 07/27/23 propranolol 80 mg capsule,extended 80 mg PO DAILY 09/14/22 07/27/23 release 24 hr spironolactone 50 mg tablet 50 mg PO QAM 09/14/22 07/27/23 trazodone 150 mg tablet 150 mg PO BEDTIME 09/14/22 07/27/23 atorvastatin 20 mg tablet 20 mg PO DAILY 07/23/23 07/27/23 canagliflozin 150 mg-metformin 1 tab PO BID 07/23/23 07/27/23 1,000 mg tablet (Invokamet) duloxetine 60 mg capsule,delayed 60 mg PO DAILY 07/23/23 07/27/23 release Adult Low Dose Aspirin 81 mg DAILY 07/27/23 07/27/23 Previous Rx's Medication Instructions Recorded estradiol 1 mg tablet 1 mg PO DAILY #90 tabs 07/07/23 Allergies Allergy/AdvReac Type Severity Reaction Status Date / Time levofloxacin [LEVOFLOXACIN] Allergy Severe hives Verified 07/22/23 14:50 Sulfa (Sulfonamide Allergy Severe rash Verified 07/22/23 14:50 Antibiotics) [SULFA (SULFONAMIDE ANTIBIOTICS)] amoxicillin [From AUGMENTIN] Allergy Mild rash Verified 07/22/23 14:50 ciprofloxacin [From CIPRO] Allergy Mild rash Verified 07/22/23 14:50 clarithromycin [From BIAXIN] Allergy Mild rash Verified 07/22/23 14:50 clavulanic acid Allergy Mild rash Verified 07/22/23 14:50 [From AUGMENTIN] morphine [MORPHINE] AdvReac Mild n/v Verified 07/22/23 14:50 pregabalin [PREGABALIN] AdvReac Mild lost voice Verified 07/22/23 14:50 Review of Systems Review of Systems Narrative: Negative except as noted above Patient History Medical History Retained ureteral stent Hx of osteoarthritis Hx of migraine headaches History of liver disease Kidney stone on left side Bipolar disorder Arthritis HIV (human immunodeficiency virus infection) History of gastrointestinal symptoms Anxiety Diabetes mellitus Hypertension GERD (gastroesophageal reflux disease) Fibroids Depression PTSD (post-traumatic stress disorder) Surgical History History of stress incontinence procedure using tension free vaginal tape (2013) History of cystoscopy (2013) S/P functional endoscopic sinus surgery (2002) Status post arthroscopy (2003) Status post laparoscopic supracervical hysterectomy (2011) Status post cholecystectomy (2011) Family History Father Diabetes mellitus Hypertension CVA (cerebral vascular accident) Mother Diabetes mellitus Hypertension CVA (cerebral vascular accident) Hearing impairment Brother Hypertension Social History marital status: number of children: 3 household members: spouse occupational status: disabled Smoking Status: Current every day smoker alcohol intake: never caffeine: Yes Type(s) of exercise: none Smoking Status: Current every day smoker tobacco type: cigarettes alcohol intake frequency: holidays/special occasions only Substance Use Type: marijuana Exam Initial Vital Signs Initial Vital Signs: Vital Signs Temperature 98.1 F 07/27/23 03:32 Pulse Rate 77 07/27/23 03:32 Respiratory Rate 18 07/27/23 03:32 Blood Pressure 147/77 H 07/27/23 03:32 Pulse Oximetry 99 07/27/23 03:32 Oxygen Delivery Method Room Air 07/27/23 03:32 Const: Awake, alert, no acute distress, nontoxic appearing Cardiac: regular rate, regular rhythm RESP: unlabored, clear bilaterally, no wheezing GI: Soft, nontender, nondistended, no rebound, no guarding MSK: Atraumatic, full range of motion, pulses equal Skin: Warm, Dry, intact, no rashes Neuro: AO x3, CN II-XII grossly intact, moves all extremities Course Orders Ordered: Discontinued Medications Al Hydrox/Mg Hydrox/Simethicone (Mag Hydrox/Alum/Simeth 30 Ml Udc) 30 ml PO NOW ONE Stop: 07/27/23 03:42 Last Admin: 07/27/23 03:52 Dose: 30 ml Documented By: Sodium Chloride (Normal Saline 0.9%) 1,000 mls @ 1,000 mls/hr IV BOLUS ONE Stop: 07/27/23 04:40 Last Infusion: 07/27/23 05:29 Dose: Infused Documented By: Admin: 07/27/23 03:49 Dose: 1,000 mls/hr Documented By: Lidocaine HCl (Lidocaine Viscous 2% 15 Ml Solution) 15 ml PO NOW ONE Stop: 07/27/23 03:42 Last Admin: 07/27/23 03:52 Dose: 15 ml Documented By: Metoclopramide HCl (Metoclopramide 10 Mg/2 Ml Inj) 10 mg IV NOW ONE Stop: 07/27/23 03:42 Last Admin: 07/27/23 03:51 Dose: 10 mg Documented By: Vital Signs Vital signs: Vital Signs - 8 hr 07/27/23 03:32 07/27/23 03:44 07/27/23 04:00 Temperature 98.1 F Pulse Rate 77 82 86 Respiratory Rate 18 Blood Pressure 147/77 H Pulse Oximetry 99 98 98 Oxygen Delivery Method Room Air Room Air 07/27/23 04:30 07/27/23 05:00 07/27/23 05:21 Temperature Pulse Rate 81 75 Respiratory Rate Blood Pressure 130/58 L Pulse Oximetry 98 98 Oxygen Delivery Method Room Air 07/27/23 05:21 07/27/23 05:30 07/27/23 05:30 Temperature Pulse Rate 74 74 Respiratory Rate Blood Pressure 115/56 L Pulse Oximetry 98 97 Oxygen Delivery Method Room Air Room Air 07/27/23 06:02 Temperature 97.5 F L Pulse Rate 70 Respiratory Rate 18 Blood Pressure 120/67 Pulse Oximetry 96 Oxygen Delivery Method MDM - Nausea/Vomiting/Diarrhea Differential Diagnosis Differential diagnosis: Likely traveler's diarrhea, food poisoning and gastroenteritis Lab Data 07/27/23 03:30 07/27/23 03:30 Labs: Lab Results 07/27/23 Range/Units 03:30 WBC 15.5 H (4.5-11.0) X10^3/uL RBC 4.48 (4.0-5.2) X10^6/uL Hgb 13.5 (12.0-16.0) g/dL Hct 40.8 (36-46) % MCV 91.1 (80-100) fL MCH 30.2 (26-34) PG MCHC 33.2 (30-36) % RDW 14.5 (11.6-14.8) % Plt Count 259 (150-400) X10^3/uL Neut % (Auto) 76.2 H (50-75) % Lymph % (Auto) 18.8 L (25-40) % [place] % (Auto) 3.2 (3-14) % Eos % (Auto) 1.2 L (2-4) % Baso % (Auto) 0.6 (0-2) % Neut # (Auto) 94082 H (7165-8548) /uL Lymph # (Auto) 2900 (8468-0280) /uL [place] # (Auto) 500 (0-900) /uL Eos # (Auto) 200 (0-450) /uL Baso # (Auto) 100 (0-100) /uL PT 10.6 (9.4-12.5) SECONDS INR 0.9 (0.9-1.3) Sodium 139 (137-145) mmol/L Potassium 3.5 (3.4-5.1) mmol/L Chloride 105 (98-107) mmol/L Carbon Dioxide 25 (22-32) mmol/L BUN 12 (7-17) mg/dL Creatinine 0.76 (0.52-1.04) mg/dL Estimated GFR > 60 (>60) mL/min BUN/Creatinine Ratio 15.8 (6-22) Glucose 177 H (70-100) mg/dL Calcium 10.1 (8.4-10.2) mg/dL Total Bilirubin 0.5 (0.2-1.3) mg/dL AST 26 (14-36) IU/L ALT 18 (<35) IU/L Alkaline Phosphatase 67 (38-126) U/L Total Protein 7.5 (6.3-8.2) g/dL Albumin 4.1 (3.5-5.0) g/dL Globulin 3.4 (1.7-4.1) g/dL Albumin/Globulin Ratio 1.2 (1.0-2.8) MDM Narrative Medical decision making narrative: Nontoxic patient presenting with reported episode of bright red blood in her emesis. Patient was in no acute distress, resting comfortably in ED bed, hemodynamically stable. Abdomen is soft, minimal tenderness to deep palpation in the lower quadrants. Patient has chronic abdominal pain and gastroparesis leading to numerous ER visits. Patient also reports recent endoscopy that was reportedly ?normal? without varices or ulcers. Laboratory work is reviewed, unremarkable. Patient's hemoglobin is stable, liver enzymes at baseline. Patient has been observed for several hours and has not had any further emesis or hematemesis. Low suspicion for true GI bleed at this time. KUB shows large stool burden, which is likely contributing to patient's lower abdominal pain. Patient was counseled on all lab and imaging findings, recommended close follow up with her GI doctors and to resume MiraLax and stool softeners for her constipation. Discharge Plan Departure Patient Disposition: Home Clinical Impression: Constipation Hematemesis Qualifiers: Nausea presence: unspecified Qualified Code(s): K92.0 - Hematemesis Instructions: DI for Constipation Activity Restrictions/Additional Instructions: Your laboratory work today showed a normal hemoglobin and your liver enzymes were normal. Your x-ray did show a large amount of stool in your colon consistent with constipation. Continue to take MiraLax and other stool softeners for constipation. You may take antacids as needed. Please return if you notice worsening bleeding Prescriptions: No Action estradiol 1 mg tablet 1 mg PO DAILY Qty: 90 3RF cetirizine 10 mg Tablet 10 mg PO DAILY clonazepam 1 mg tablet 1 mg PO 3XD gabapentin 800 mg tablet 800 mg PO BID trazodone 150 mg tablet 150 mg PO BEDTIME ondansetron 4 mg tablet,disintegrating 4 mg PO 4XD PRN (Reason: nausea/vomiting) Patient Comments: DISSOLVE 1 tablet ON TONGUE 3 TO 4 TIMES DAILY if needed FOR NAUSEA AND VOMITING prazosin 2 mg Capsule 2 mg PO BID spironolactone 50 mg tablet 50 mg PO QAM atomoxetine 40 mg capsule 40 mg PO QAM buprenorphine-naloxone 2-0.5 mg tablet, sublingual 4 tab SUBLINGUAL DAILY propranolol 80 mg Capsule,Extended Release 24hr 80 mg PO DAILY dexlansoprazole [Dexilant] 60 mg Capsule,Biphase Delayed Releas 60 mg PO DAILY Triumeq 600-50-300 mg tablet 1 tab PO DAILY Adult Low Dose Aspirin 81 mg DAILY atorvastatin 20 mg tablet 20 mg PO DAILY duloxetine 60 mg Capsule,Delayed Release(Dr/Ec) 60 mg PO DAILY Invokamet 150-1,000 mg Tablet 1 tab PO BID Referrals: Nidhi Faustin DO [Primary Care Provider] - Stand Alone Forms: Patient Portal/API
[2023-07-27 03:47] LABS: INR 0.9 (0.9-1.3); Prothrombin Time 10.6 SECONDS (9.4-12.5)
[2023-07-27] MEDS: SODIUM CHLORIDE 0.9% 1,000 ML 1000 ML IV (03:49)
[2023-07-27] MEDS: METOCLOPRAMIDE 10 MG/2 ML INJ IV (03:51)
[2023-07-27 03:52] LABS: Alanine Aminotransferase 18 IU/L (<35); Albumin 4.1 g/dL (3.5-5.0); Albumin Globulin Ratio 1.2 (1.0-2.8); Alkaline Phosphatase 67 U/L (38-126); Aspartate Aminotransferase 26 IU/L (14-36); BUN Creatinine Ratio 15.8 (6-22); Bilirubin Total 0.5 mg/dL (0.2-1.3); Blood Urea Nitrogen 12 mg/dL (7-17); Calcium 10.1 mg/dL (8.4-10.2); Carbon Dioxide 25 mmol/L (22-32); Chloride 105 mmol/L (98-107); Estimated Glomerular Filt Rate > 60 mL/min (>60); Globulin 3.4 g/dL (1.7-4.1); Glucose 177 mg/dL (70-100); HEMOLYSIS < 15 (0-50); Potassium 3.5 mmol/L (3.4-5.1); Sodium 139 mmol/L (137-145); Total Protein 7.5 g/dL (6.3-8.2)
[2023-07-27] MEDS: MAG HYDROX/ALUM/SIMETH 30 ML UDC PO (03:52)
[2023-07-27] MEDS: LIDOCAINE VISCOUS 2% 15 ML SOLUTION PO (03:52)
--- NOTE | 2023-07-27 05:05 | DI.RAD.S_ITS ---
PROCEDURE: XR KUB INDICATIONS: lower abdomen pain and constipation TECHNIQUE: One view of the abdomen acquired. COMPARISON: [facility], CR, XR KUB, 07/11/2023, 8:47. [facility], CR, XR KUB, 10/02/2022, 11:41. FINDINGS: Surgical changes and devices: Surgical fusion of the spine and cholecystectomy. Bowel: Bowel gas pattern is normal. Moderate colonic stool load. Soft tissues: No suspicious abdominal calcifications. Visualized solid organ contours appear normal in size. Bones: No suspicious bony lesions. IMPRESSION: Moderate colonic stool load. Agree with preliminary report. Dictated by: Everett Russell M.D. on 07/27/2023 at 8:07 Approved by: Everett Russell M.D. on 07/27/2023 at 8:07
== END 2023-07-27 06:05 | disposition home or self-care (01) ==
PROVIDERS: Emergency Provider Emergency Medicine; PCP Family Medicine
DX: K92.0 Hematemesis (principal); K59.00 Constipation, unspecified
CPT/HCPCS: 36415; 74018; 80053; 85025; 85610; 96374; 99284; J2765

== ENCOUNTER 2023-08-04 19:50 | Emergency (ER) | payer MEDICARE, OTHER, SELFPAY ==
[2023-07-22 19:53] VITALS: BMI 25.8
[2023-08-04 19:59] VITALS: BP 144/78; PULSE 73; RESP 24; TEMP 36.4; O2SAT 96; BMI 25.1
[2023-08-04 20:11] LABS: Add Manual Diff / Slide Review NO; Basophils Absolute Auto 100 /uL (0-100); Basophils Percent Auto 1.2 % (0-2); Eosinophils Absolute Auto 100 /uL (0-450); Eosinophils Percent Auto 0.6 % (2-4); Hematocrit 44.7 % (36-46); Hemoglobin 14.7 g/dL (12.0-16.0); Lymphocytes Absolute Auto 3700 /uL (1100-4500); Lymphocytes Percent Auto 37.7 % (25-40); Mean Corpuscular HGB Conc 32.9 % (30-36); Mean Corpuscular Hemoglobin 30.4 PG (26-34); Mean Corpuscular Volume 92.4 fL (80-100); Monocytes Absolute Auto 300 /uL (0-900); Monocytes Percent Auto 3.1 % (3-14); Neutrophils Absolute Auto 5700 /uL (1500-7000); Neutrophils Percent Auto 57.4 % (50-75); Platelet Count 343 X10^3/uL (150-400); Red Blood Cell Count 4.84 X10^6/uL (4.0-5.2); Red Cell Distribution Width 14.7 % (11.6-14.8); White Blood Cell Count 9.9 X10^3/uL (4.5-11.0)
[2023-08-04 20:12] VITALS: BP 113/58
[2023-08-04 20:13] VITALS: PULSE 96; RESP 22; O2SAT 95
[2023-08-04 20:25] LABS: Magnesium 2.4 mg/dL (1.6-2.3); Salicylate < 1.0 mg/dL (<20)
[2023-08-04 20:26] LABS: Acetaminophen < 10 ug/mL (10-30); Alanine Aminotransferase 16 IU/L (<35); Albumin 4.5 g/dL (3.5-5.0); Albumin Globulin Ratio 1.2 (1.0-2.8); Alkaline Phosphatase 71 U/L (38-126); Aspartate Aminotransferase 21 IU/L (14-36); BUN Creatinine Ratio 12.3 (6-22); Bilirubin Total 0.3 mg/dL (0.2-1.3); Blood Urea Nitrogen 8 mg/dL (7-17); Calcium 9.8 mg/dL (8.4-10.2); Carbon Dioxide 23 mmol/L (22-32); Chloride 111 mmol/L (98-107); Estimated Glomerular Filt Rate > 60 mL/min (>60); Ethanol (ETOH) 205 mg/dL; Globulin 3.9 g/dL (1.7-4.1); Glucose 133 mg/dL (70-100); HEMOLYSIS < 15 (0-50); Lipase 419 U/L (23-300); Potassium 5.1 mmol/L (3.4-5.1); Sodium 146 mmol/L (137-145); Total Protein 8.4 g/dL (6.3-8.2)
[2023-08-04 20:30] VITALS: BP 96/65; PULSE 92; RESP 10; O2SAT 99
[2023-08-04 21:02] LABS: Thyroid Stimulating Hormone 0.488 uIU/mL (0.47-4.68)
[2023-08-04 21:08] LABS: Influenza A - CEPHEID Flu A NEGATIVE (NEGATIVE); Influenza B - CEPHEID Flu B NEGATIVE (NEGATIVE); Respiratory Syncytial Virus Negative (Negative)
--- NOTE | 2023-08-04 21:16 | ED_ITS ---
HPI - General Adult General Chief complaint: Toxicology Problem Stated complaint: intoxicated Time Seen by Provider: 08/04/23 19:58 Source: patient and EMS Mode of arrival: EMS History of Present Illness HPI narrative: Patient is a 52-year-old female who was brought in by EMS from the [facility] for evaluation of intoxication and suicidal ideation. Here in the emergency department the patient states that she did drink this afternoon. This was after being sober for several months. She stated that she had a unpleasant interaction with her kids earlier today and her son has not wanted to talk with her in hung up on her on the phone. She stated that she did start to drink this afternoon with her . She did try to scratch her neck with a broken bottle. She states that it was not particularly in an attempt to kill herself she was just very frustrated with the situation. She also has other chronic medical issues to include HIV. She has been having quite a bit of GI issues as well. She has seen a GI doctor they are having difficulty trying to pinpoint why she has been having issues with chronic diarrhea. She states that her GI issues has caused a very significant change in her lifestyle she is unable to do long travel or other events because of having to go the bathroom. She states that everything that happened this afternoon caused her to once again have suicidal ideation. She has tried to kill herself in the past by taking pills. She has been admitted to the hospital for Tylenol overdose. This evening she denied taking any pills. Related Data Home Medications Medication Instructions Recorded Confirmed abacavir 600 mg-dolutegravir 50 1 tab PO DAILY 09/14/22 07/27/23 mg-lamivudine 300 mg tablet (Triumeq) atomoxetine 40 mg capsule 40 mg PO QAM 09/14/22 07/27/23 buprenorphine 2 mg-naloxone 0.5 mg 4 tab sublingual DAILY 09/14/22 07/27/23 sublingual tablet cetirizine 10 mg tablet 10 mg PO DAILY 09/14/22 07/27/23 clonazepam 1 mg tablet 1 mg PO 3XD 09/14/22 07/27/23 dexlansoprazole 60 mg 60 mg PO DAILY 09/14/22 07/27/23 capsule,biphase delayed release (Dexilant) gabapentin 800 mg tablet 800 mg PO BID 09/14/22 07/27/23 ondansetron 4 mg disintegrating 4 mg PO 4XD PRN nausea/vomiting 09/14/22 07/27/23 tablet prazosin 2 mg capsule 2 mg PO BID 09/14/22 07/27/23 propranolol 80 mg capsule,extended 80 mg PO DAILY 09/14/22 07/27/23 release 24 hr spironolactone 50 mg tablet 50 mg PO QAM 09/14/22 07/27/23 trazodone 150 mg tablet 150 mg PO BEDTIME 09/14/22 07/27/23 atorvastatin 20 mg tablet 20 mg PO DAILY 07/23/23 07/27/23 canagliflozin 150 mg-metformin 1 tab PO BID 07/23/23 07/27/23 1,000 mg tablet (Invokamet) duloxetine 60 mg capsule,delayed 60 mg PO DAILY 07/23/23 07/27/23 release Adult Low Dose Aspirin 81 mg DAILY 07/27/23 07/27/23 Previous Rx's Medication Instructions Recorded estradiol 1 mg tablet 1 mg PO DAILY #90 tabs 07/07/23 Allergies Allergy/AdvReac Type Severity Reaction Status Date / Time levofloxacin [LEVOFLOXACIN] Allergy Severe hives Verified 07/22/23 14:50 Sulfa (Sulfonamide Allergy Severe rash Verified 07/22/23 14:50 Antibiotics) [SULFA (SULFONAMIDE ANTIBIOTICS)] amoxicillin [From AUGMENTIN] Allergy Mild rash Verified 07/22/23 14:50 ciprofloxacin [From CIPRO] Allergy Mild rash Verified 07/22/23 14:50 clarithromycin [From BIAXIN] Allergy Mild rash Verified 07/22/23 14:50 clavulanic acid Allergy Mild rash Verified 07/22/23 14:50 [From AUGMENTIN] morphine [MORPHINE] AdvReac Mild n/v Verified 07/22/23 14:50 pregabalin [PREGABALIN] AdvReac Mild lost voice Verified 07/22/23 14:50 Review of Systems Cardiovascular Comments: Denies chest pain Respiratory Comments: Denies shortness of breath Gastrointestinal Comments: Denies abdominal pain Genitourinary Genitourinary: Reports system reviewed and no additional complaints, except as documented Integumentary/Breasts Skin/Breast: Reports system reviewed and no additional complaints, except as documented Psychiatric Comments: See HPI Patient History Medical History Retained ureteral stent Hx of osteoarthritis Hx of migraine headaches History of liver disease Kidney stone on left side Bipolar disorder Arthritis HIV (human immunodeficiency virus infection) History of gastrointestinal symptoms Anxiety Diabetes mellitus Hypertension GERD (gastroesophageal reflux disease) Fibroids Depression PTSD (post-traumatic stress disorder) Surgical History History of stress incontinence procedure using tension free vaginal tape (2013) History of cystoscopy (2013) S/P functional endoscopic sinus surgery (2002) Status post arthroscopy (2003) Status post laparoscopic supracervical hysterectomy (2011) Status post cholecystectomy (2011) Family History Father Diabetes mellitus Hypertension CVA (cerebral vascular accident) Mother Diabetes mellitus Hypertension CVA (cerebral vascular accident) Hearing impairment Brother Hypertension Social History marital status: number of children: 3 household members: spouse occupational status: disabled Smoking Status: Current every day smoker alcohol intake: never caffeine: Yes Type(s) of exercise: none Smoking Status: Current every day smoker tobacco type: cigarettes alcohol intake frequency: holidays/special occasions only Substance Use Type: marijuana and hallucinogens Exam Initial Vital Signs Initial Vital Signs: Vital Signs Temperature 97.6 F 08/04/23 19:59 Pulse Rate 73 08/04/23 19:59 Respiratory Rate 24 08/04/23 19:59 Blood Pressure 144/78 H 08/04/23 19:59 Pulse Oximetry 96 08/04/23 19:59 Oxygen Delivery Method Room Air 08/04/23 19:59 Const General: cooperative and comfortable HENMT Head: normal to inspection and normocephalic Resp Effort & Inspection: normal respiratory effort Auscultation: clear to auscultation bilaterally Cardio Rate: regular rate Rhythm: regular rhythm Skin Other: Patient with multiple superficial abrasions to her neck. No active bleeding. Neuro General: patient alert, patient awake, patient oriented x3 and moves all extremities Extrem General: normal to inspection Psych Other: Patient is calm however does appear to be anxious. Does endorse suicidal ideation. Course Orders Ordered: ED Orders 08/04/23 19:59 Consult to [employer] - [employer] Stat 08/04/23 20:00 Acetaminophen Stat Complete Blood Count AUTO DIFF Stat Comprehensive Metabolic Panel Stat Ethanol (ETOH) Stat Lipase Stat Magnesium Stat Salicylate Stat Thyroid Stimulating Hormone Stat 08/04/23 20:25 Covid-19 + FLU A/B + RSV - PCR Stat Discontinued Medications Acetaminophen (Acetaminophen 325 Mg Tablet) 650 mg PO NOW ONE Stop: 08/04/23 22:12 Last Admin: 08/04/23 22:15 Dose: 650 mg Documented By: Buprenorphine/Naloxone (Buprenorphine/Naloxone 8mg/2mg 1 Tab) 0.5 tab SL DAILY ONE Stop: 08/05/23 01:09 Last Admin: 08/05/23 01:18 Dose: 0.5 tab Documented By: AB Coleman Hydrox/Mg Hydrox/Simethicone 20 ml/ Lidocaine HCl 15 ml 0 ml PO NOW ONE Stop: 08/04/23 22:12 Last Admin: 08/04/23 22:15 Dose: 15 ml Documented By: Ondansetron HCl (Ondansetron 4 Mg Odt) 4 mg SL NOW ONE Stop: 08/04/23 23:46 Last Admin: 08/04/23 23:51 Dose: 4 mg Documented By: Vital Signs Vital signs: Vital Signs - 8 hr 08/04/23 19:59 08/04/23 20:12 08/04/23 20:13 Temperature 97.6 F Pulse Rate 73 96 H Respiratory Rate 24 22 Blood Pressure 144/78 H 113/58 L Pulse Oximetry 96 95 Oxygen Delivery Method Room Air Room Air 08/04/23 20:30 08/04/23 20:30 08/05/23 01:35 Temperature Pulse Rate 92 H 110 H Respiratory Rate 10 L 18 Blood Pressure 96/65 119/56 L Pulse Oximetry 99 96 Oxygen Delivery Method Room Air Room Air Medical Decision Making Lab Data Lab results reviewed: Yes I reviewed the patient's lab results. 08/04/23 20:00 08/04/23 20:00 Labs: Lab Results 08/04/23 08/04/23 Range/Units 20:00 20:25 WBC 9.9 (4.5-11.0) X10^3/uL RBC 4.84 (4.0-5.2) X10^6/uL Hgb 14.7 (12.0-16.0) g/dL Hct 44.7 (36-46) % MCV 92.4 (80-100) fL MCH 30.4 (26-34) PG MCHC 32.9 (30-36) % RDW 14.7 (11.6-14.8) % Plt Count 343 (150-400) X10^3/uL Neut % (Auto) 57.4 (50-75) % Lymph % (Auto) 37.7 (25-40) % [place] % (Auto) 3.1 (3-14) % Eos % (Auto) 0.6 L (2-4) % Baso % (Auto) 1.2 (0-2) % Neut # (Auto) 5700 (5029-6823) /uL Lymph # (Auto) 3700 (5600-1382) /uL [place] # (Auto) 300 (0-900) /uL Eos # (Auto) 100 (0-450) /uL Baso # (Auto) 100 (0-100) /uL Sodium 146 H (137-145) mmol/L Potassium 5.1 D (3.4-5.1) mmol/L Chloride 111 H (98-107) mmol/L Carbon Dioxide 23 (22-32) mmol/L BUN 8 (7-17) mg/dL Creatinine 0.65 (0.52-1.04) mg/dL Estimated GFR > 60 (>60) mL/min BUN/Creatinine Ratio 12.3 (6-22) Glucose 133 H (70-100) mg/dL Calcium 9.8 (8.4-10.2) mg/dL Magnesium 2.4 H (1.6-2.3) mg/dL Total Bilirubin 0.3 (0.2-1.3) mg/dL AST 21 (14-36) IU/L ALT 16 (<35) IU/L Alkaline Phosphatase 71 (38-126) U/L Total Protein 8.4 H (6.3-8.2) g/dL Albumin 4.5 (3.5-5.0) g/dL Globulin 3.9 (1.7-4.1) g/dL Albumin/Globulin Ratio 1.2 (1.0-2.8) Lipase 419 H (23-300) U/L TSH 0.488 D (0.47-4.68) uIU/mL Salicylates < 1.0 (<20) mg/dL Acetaminophen < 10 (10-30) ug/mL Ethyl Alcohol 205 H ( - 10) mg/dL SARS-CoV-2 (PCR) Negative (Negative) Influenza A (RT-PCR) Flu a negative (NEGATIVE) Influenza B (RT-PCR) Flu b negative (NEGATIVE) RSV (PCR) Negative (Negative) MDM Narrative Medical decision making narrative: I had an extensive discussion with the patient regarding her presentation here today. She has multiple life stressors to include issues with her family particularly her kids, her chronic GI issues, her HIV, also the fact that she started drinking alcohol this evening. She was cooperative and was understanding that given the circumstances of why she was here that she did need to stay here in the emergency department until she became sober. Initially she did not want her in the room however after our discussion she was okay with this. Patient is medically cleared. After an extended period of time here in the ER the patient was able to tolerate oral intake. Was able to sleep for awhile. Upon my re-evaluation the patient states that she is feeling much better. No longer suicidal. Patient is clinically sober. Has a GCS of 15. Her is at bedside. We now had a discussion about where we should go from here. She is starting to see a therapist on a weekly basis and stated that she missed the appointment yesterday because she was at the [employer]. She did state that she would either tell her or return to the emergency department if she would thoughts of hurting herself again before she did anything. I was able to talk with the [facility] and able to set up a follow-up phone call for later today. The patient was agreeable with this and stated that she would answer the phone when they called. I also advised that they contact her therapist later today when the office opens in order to reschedule the appointment that she missed yesterday. Patient has been seen here in the emergency department multiple times for suicidal ideation although she was at the point today where she is clinically sober, not suicidal, contracted for safety, is comfortable going home with her , her is comfortable taking her home and I do not feel that patient would meet criteria for an involuntary admission. She was given return precautions follow- up instructions. She expressed understanding and agreement. Discharge Plan Departure Patient Disposition: Home Clinical Impression: Alcohol intoxication, Suicidal ideation, Abrasion of skin Instructions: DI for Alcohol Use Disorder Activity Restrictions/Additional Instructions: Who should be receiving a phone call from the [facility] to reach out to you early this afternoon. I recommend that you take this call and they will check up to make sure everything is going okay. I also recommend that later today you contact your therapist for a follow-up. Like we discussed please return to the emergency department if you have thoughts of wanting to hurt yourself again. Prescriptions: No Action estradiol 1 mg tablet 1 mg PO DAILY Qty: 90 3RF cetirizine 10 mg Tablet 10 mg PO DAILY clonazepam 1 mg tablet 1 mg PO 3XD gabapentin 800 mg tablet 800 mg PO BID trazodone 150 mg tablet 150 mg PO BEDTIME ondansetron 4 mg tablet,disintegrating 4 mg PO 4XD PRN (Reason: nausea/vomiting) Patient Comments: DISSOLVE 1 tablet ON TONGUE 3 TO 4 TIMES DAILY if needed FOR NAUSEA AND VOMITING prazosin 2 mg Capsule 2 mg PO BID spironolactone 50 mg tablet 50 mg PO QAM atomoxetine 40 mg capsule 40 mg PO QAM buprenorphine-naloxone 2-0.5 mg tablet, sublingual 4 tab SUBLINGUAL DAILY propranolol 80 mg Capsule,Extended Release 24hr 80 mg PO DAILY dexlansoprazole [Dexilant] 60 mg Capsule,Biphase Delayed Releas 60 mg PO DAILY Triumeq 600-50-300 mg tablet 1 tab PO DAILY Adult Low Dose Aspirin 81 mg DAILY atorvastatin 20 mg tablet 20 mg PO DAILY duloxetine 60 mg Capsule,Delayed Release(Dr/Ec) 60 mg PO DAILY Invokamet 150-1,000 mg Tablet 1 tab PO BID Referrals: Nidhi Faustin DO [Primary Care Provider] - Stand Alone Forms: Patient Portal/API
[2023-08-04 21:22] LABS: COVID-19 CEPHEID 4-PLEX PCR Negative (Negative)
--- NOTE | 2023-08-04 21:24 | PC.NURSE ---
Addendum entered by Selene Newsome CNA 08/04/23 22:03: AMPARO note: Patient is weeping and said they and you are shhhing me to be quiet. I can't help it. Addendum entered by Selene Newsome CNA 08/04/23 21:38: AMPARO note: Patient still crying. Patient's spouse asked how much longer. Patient is crying I can't do this anymore. Patient's spouse asked to speak to the doctor. Original Note: AMPARO note: Patient is crying, weeping, and sobbing while sitting on the bed. She is cursing into her 's jacket saying god damn it, I can't do this anymore. Patient's is rubbing her back for support. Patient was fairly relaxed moments before.
[2023-08-04] MEDS: ACETAMINOPHEN 325 MG TABLET 650 MG PO (22:15)
[2023-08-04] MEDS: MAG HYDROX/ALUMINUM/SIMETH SUS 20 ML, LIDOCAINE VISCOUS 2% 15 ML PO (22:15)
[2023-08-04] MEDS: ONDANSETRON 4 MG ODT SL (23:51)
[2023-08-05] MEDS: BUPRENORPHINE/NALOXONE 8MG/2MG 1 TAB 0.5 TAB SL (01:18)
--- NOTE | 2023-08-05 01:22 | PC.NURSE ---
Pt resting in bed, respirations even and unlabored. No distress noted on exam. This sitter remains at bedside.
[2023-08-05 01:35] VITALS: BP 119/56; PULSE 110; RESP 18; O2SAT 96
[2023-08-05 03:04] VITALS: BP 133/69; PULSE 106; RESP 16; O2SAT 97
== END 2023-08-05 03:05 | disposition home or self-care (01) ==
PROVIDERS: Emergency Provider Emergency Medicine; PCP Family Medicine
DX: F10.129 Alcohol abuse with intoxication, unspecified (principal); Y90.7 Blood alcohol level of 200-239 mg/100 ml; R45.851 Suicidal ideations; B20 Human immunodeficiency virus [HIV] disease; Z79.899 Other long term (current) drug therapy; Z20.822 Contact with and (suspected) exposure to COVID-19
CPT/HCPCS: 0241U; 36415; 80053; 80320; 80329; 83690; 83735; 84443; 85025; 99284; G0480

== ENCOUNTER 2023-08-10 18:41 | Emergency (ER) | payer MEDICARE, OTHER, SELFPAY ==
[2023-07-22 19:53] VITALS: BMI 25.8
[2023-08-10] VITALS (9 sets, daily range): BP systolic 114–132; BP diastolic 57–68; PULSE 71–88; RESP 14–21; TEMP 35.9; O2SAT 95–97; BMI 26.6
--- NOTE | 2023-08-10 19:16 | ED_ITS ---
HPI - Chest Pain General Chief Complaint: Chest Pain Stated Complaint: burning feeling back of head to med back Time Seen by Provider: 08/10/23 19:09 History of Present Illness HPI narrative: 52-year-old female very well known to this emergency department presents for burning sensation in her neck, head, shoulders. States that she has had this pain for several days and it has not been relieved with Tylenol and ibuprofen. Presenting to the emergency department today because she had burning pain in her chest spreading down her left arm. Related Data Home Medications Medication Instructions Recorded Confirmed abacavir 600 mg-dolutegravir 50 1 tab PO DAILY 09/14/22 07/27/23 mg-lamivudine 300 mg tablet (Triumeq) atomoxetine 40 mg capsule 40 mg PO QAM 09/14/22 07/27/23 buprenorphine 2 mg-naloxone 0.5 mg 4 tab sublingual DAILY 09/14/22 07/27/23 sublingual tablet cetirizine 10 mg tablet 10 mg PO DAILY 09/14/22 07/27/23 clonazepam 1 mg tablet 1 mg PO 3XD 09/14/22 07/27/23 dexlansoprazole 60 mg 60 mg PO DAILY 09/14/22 07/27/23 capsule,biphase delayed release (Dexilant) gabapentin 800 mg tablet 800 mg PO BID 09/14/22 07/27/23 ondansetron 4 mg disintegrating 4 mg PO 4XD PRN nausea/vomiting 09/14/22 07/27/23 tablet prazosin 2 mg capsule 2 mg PO BID 09/14/22 07/27/23 propranolol 80 mg capsule,extended 80 mg PO DAILY 09/14/22 07/27/23 release 24 hr spironolactone 50 mg tablet 50 mg PO QAM 09/14/22 07/27/23 trazodone 150 mg tablet 150 mg PO BEDTIME 09/14/22 07/27/23 atorvastatin 20 mg tablet 20 mg PO DAILY 07/23/23 07/27/23 canagliflozin 150 mg-metformin 1 tab PO BID 07/23/23 07/27/23 1,000 mg tablet (Invokamet) duloxetine 60 mg capsule,delayed 60 mg PO DAILY 07/23/23 07/27/23 release Adult Low Dose Aspirin 81 mg DAILY 07/27/23 07/27/23 Previous Rx's Medication Instructions Recorded estradiol 1 mg tablet 1 mg PO DAILY #90 tabs 07/07/23 cyclobenzaprine 10 mg tablet 10 mg PO TID PRN muscle spasm #30 08/10/23 tabs Allergies Allergy/AdvReac Type Severity Reaction Status Date / Time levofloxacin [LEVOFLOXACIN] Allergy Severe hives Verified 07/22/23 14:50 Sulfa (Sulfonamide Allergy Severe rash Verified 07/22/23 14:50 Antibiotics) [SULFA (SULFONAMIDE ANTIBIOTICS)] amoxicillin [From AUGMENTIN] Allergy Mild rash Verified 07/22/23 14:50 ciprofloxacin [From CIPRO] Allergy Mild rash Verified 07/22/23 14:50 clarithromycin [From BIAXIN] Allergy Mild rash Verified 07/22/23 14:50 clavulanic acid Allergy Mild rash Verified 07/22/23 14:50 [From AUGMENTIN] morphine [MORPHINE] AdvReac Mild n/v Verified 07/22/23 14:50 pregabalin [PREGABALIN] AdvReac Mild lost voice Verified 07/22/23 14:50 Review of Systems Review of Systems Narrative: See HPI Patient History Medical History Retained ureteral stent Hx of osteoarthritis Hx of migraine headaches History of liver disease Kidney stone on left side Bipolar disorder Arthritis HIV (human immunodeficiency virus infection) History of gastrointestinal symptoms Anxiety Diabetes mellitus Hypertension GERD (gastroesophageal reflux disease) Fibroids Depression PTSD (post-traumatic stress disorder) Surgical History History of stress incontinence procedure using tension free vaginal tape (2013) History of cystoscopy (2013) S/P functional endoscopic sinus surgery (2002) Status post arthroscopy (2003) Status post laparoscopic supracervical hysterectomy (2011) Status post cholecystectomy (2011) Family History Father Diabetes mellitus Hypertension CVA (cerebral vascular accident) Mother Diabetes mellitus Hypertension CVA (cerebral vascular accident) Hearing impairment Brother Hypertension Social History marital status: number of children: 3 household members: spouse occupational status: disabled Smoking Status: Current every day smoker alcohol intake: never caffeine: Yes Type(s) of exercise: none Smoking Status: Current every day smoker tobacco type: cigarettes alcohol intake frequency: holidays/special occasions only Substance Use Type: marijuana and hallucinogens Exam Initial Vital Signs Initial Vital Signs: Vital Signs Temperature 96.6 F L 08/10/23 18:47 Pulse Rate 88 08/10/23 18:47 Respiratory Rate 18 08/10/23 18:47 Blood Pressure 132/63 08/10/23 18:47 Pulse Oximetry 95 08/10/23 18:47 Oxygen Delivery Method Room Air 08/10/23 18:47 Const: Awake, alert, no acute distress, appears chronically unwell Neck: Generalized tenderness to palpation along paraspinal muscles through neck and shoulders Cardiac: regular rate, regular rhythm RESP: unlabored, clear bilaterally, no wheezing Skin: Warm, Dry, intact, no rashes Neuro: AO x3, CN II-XII grossly intact, moves all extremities Course Orders Ordered: ED Orders 08/10/23 19:33 CT head/brain wo con Stat Chest [XR chest 1V] Stat 08/10/23 19:34 EKG-12 Lead Stat 08/10/23 19:50 CBC Auto Diff [Complete Blood Count AUTO DIFF] Stat CMP [Comprehensive Metabolic Panel] Stat PT [Prothrombin Time INR] Stat Troponin & CK Cardiac Panel Stat 08/10/23 20:05 CT cervical spine wo con Stat Discontinued Medications Diphenhydramine HCl (Diphenhydramine 50 Mg/Ml Vial) 50 mg IV NOW ONE Stop: 08/10/23 19:34 Last Admin: 08/10/23 20:32 Dose: 50 mg Documented By: OTTO Droperidol (Droperidol 5 Mg/2 Ml Vial) 2.5 mg IV NOW ONE Stop: 08/10/23 19:34 Last Admin: 08/10/23 20:31 Dose: 2.5 mg Documented By: TOTO Ketorolac Tromethamine (Ketorolac 30 Mg/Ml Vial) 15 mg IV NOW ONE Stop: 08/10/23 19:34 Last Admin: 08/10/23 20:32 Dose: 15 mg Documented By: OTTO Metoclopramide HCl (Metoclopramide 10 Mg/2 Ml Inj) 10 mg IV NOW ONE Stop: 08/10/23 19:34 Last Admin: 08/10/23 20:32 Dose: 10 mg Documented By: OTTO Vital Signs Vital signs: Vital Signs - 8 hr 08/10/23 18:47 08/10/23 19:10 08/10/23 19:30 Temperature 96.6 F L Pulse Rate 88 82 82 Respiratory Rate 18 14 16 Blood Pressure 132/63 Pulse Oximetry 95 96 96 Oxygen Delivery Method Room Air Room Air 08/10/23 19:30 08/10/23 20:00 08/10/23 20:00 Temperature Pulse Rate 83 Respiratory Rate 21 Blood Pressure 122/61 114/59 L Pulse Oximetry 97 Oxygen Delivery Method Room Air 08/10/23 20:30 08/10/23 20:44 08/10/23 20:44 Temperature Pulse Rate 81 82 Respiratory Rate 17 18 Blood Pressure 124/60 Pulse Oximetry 97 96 Oxygen Delivery Method 08/10/23 21:00 08/10/23 21:00 08/10/23 21:30 Temperature Pulse Rate 78 73 Respiratory Rate 19 18 Blood Pressure 123/57 L Pulse Oximetry 97 96 Oxygen Delivery Method 08/10/23 21:30 08/10/23 22:00 08/10/23 22:00 Temperature Pulse Rate 71 Respiratory Rate 18 Blood Pressure 119/68 122/66 Pulse Oximetry 96 Oxygen Delivery Method Room Air MDM - Chest Pain Differential Diagnosis Differential diagnosis: Likely fracture of rib, pneumothorax and stable angina Lab Data 08/10/23 19:50 08/10/23 19:50 Labs: Lab Results 08/10/23 Range/Units 19:50 WBC 8.9 (4.5-11.0) X10^3/uL RBC 4.42 (4.0-5.2) X10^6/uL Hgb 13.5 (12.0-16.0) g/dL Hct 40.8 (36-46) % MCV 92.3 (80-100) fL MCH 30.5 (26-34) PG MCHC 33.1 (30-36) % RDW 14.0 (11.6-14.8) % Plt Count 227 (150-400) X10^3/uL Neut % (Auto) 50.8 (50-75) % Lymph % (Auto) 40.9 H (25-40) % [place] % (Auto) 5.0 (3-14) % Eos % (Auto) 1.9 L (2-4) % Baso % (Auto) 1.4 (0-2) % Neut # (Auto) 4500 (7255-8169) /uL Lymph # (Auto) 3600 (0857-6034) /uL [place] # (Auto) 400 (0-900) /uL Eos # (Auto) 200 (0-450) /uL Baso # (Auto) 100 (0-100) /uL PT 11.0 (9.4-12.5) SECONDS INR 1.0 (0.9-1.3) Sodium 136 L D (137-145) mmol/L Potassium 4.3 (3.4-5.1) mmol/L Chloride 104 (98-107) mmol/L Carbon Dioxide 25 (22-32) mmol/L BUN 14 (7-17) mg/dL Creatinine 0.90 (0.52-1.04) mg/dL Estimated GFR > 60 (>60) mL/min BUN/Creatinine Ratio 15.6 (6-22) Glucose 182 H (70-100) mg/dL Calcium 9.6 (8.4-10.2) mg/dL Total Bilirubin 0.4 (0.2-1.3) mg/dL AST 20 (14-36) IU/L ALT 15 (<35) IU/L Alkaline Phosphatase 67 (38-126) U/L Total Creatine Kinase 27 L (30-135) U/L Troponin I < 0.012 (0.01-0.034) ng/mL Total Protein 7.4 (6.3-8.2) g/dL Albumin 4.3 (3.5-5.0) g/dL Globulin 3.1 (1.7-4.1) g/dL Albumin/Globulin Ratio 1.4 (1.0-2.8) Imaging Data Chest x-ray: Radiologist's Impression: PROCEDURE: XR CHEST 1V INDICATIONS: CHEST PAIN TECHNIQUE: One view of the chest was acquired. COMPARISON: [facility], , XR CHEST 1V, 04/10/2023, 13:49. [facility], , XR CHEST 1V, 01/28/2023, 10:01. FINDINGS: Surgical changes and devices: None. Lungs and pleura: Lungs are clear. No pleural effusions or pneumothorax. Mediastinum: Mediastinal contours appear normal. Heart size is normal. Bones and chest wall: No suspicious bony lesions. Overlying soft tissues appear unremarkable. IMPRESSION: No acute cardiopulmonary abnormality is seen. Dictated by: Daniel Krishnamurthy M.D. on 08/10/2023 at 20:52 Approved by: Daniel Krishnamurthy M.D. on 08/10/2023 at 20:52 CT scan - head: Radiologist's Impression: PROCEDURE: CT HEAD/BRAIN WO CON INDICATIONS: SOLITARIO/NEW PATTERN TECHNIQUE: Noncontrast 4.5 mm thick angled axial sections acquired from the foramen magnum to the vertex, with coronal and sagittal reformats. For radiation dose reduction, the following was used: automated exposure control, adjustment of mA and/or kV according to patient size. COMPARISON: [facility], CT, CT HEAD/BRAIN WO CON, 07/22/2023, 16:03. FINDINGS: Image quality: Diagnostic. CSF spaces: Basal cisterns are patent. No extra-axial fluid collections. Ventricles are normal in size and shape. Brain: No midline shift. No intracranial masses or hemorrhage. Sunshine-white matter interface is normal. Skull and face: Calvarium and visualized facial bones are intact, without suspicious lesions. Sinuses: Visualized sinuses and mastoids are clear. IMPRESSION: No acute intracranial pathology. Dictated by: Daniel Krishnamurthy M.D. on 08/10/2023 at 20:22 Approved by: Daniel Krishnamurthy M.D. on 08/10/2023 at 20:23 CT - cervical spine: Radiologist's Impression: PROCEDURE: CT CERVICAL SPINE WO CON INDICATIONS: BURNING NECK PAIN, SOLITARIO TECHNIQUE: Noncontrast 3 mm thick sections acquired from the skull base to the T4 level. Sagittal and coronal reformats were then constructed. For radiation dose reduction, the following was used: automated exposure control, adjustment of mA and/or kV according to patient size. COMPARISON: [facility], CT, C-SPINE WITHOUT CONTRAST, 01/17/2013, 14:52. FINDINGS: Image quality: Excellent. Bones: No fractures or dislocations. Multilevel degenerative changes of the cervical spine. Visualized superior ribs are intact. Soft tissues: Prevertebral soft tissues are normal in thickness. No paravertebral hematomas. No apical pneumothoraces. IMPRESSION: No displaced fracture or traumatic subluxation. Multilevel degenerative changes of the cervical spine. Dictated by: Daniel Krishnamurthy M.D. on 08/10/2023 at 20:23 Approved by: Daniel Krishnamurthy M.D. on 08/10/2023 at 20:25 MDM Narrative Medical decision making narrative: Headache not relieved with [id number] medications as well as neck pain. Patient's description of pain is fairly typical of musculoskeletal pain. The pain radiates around from her shoulders and wraps around to her chest. I have low suspicion for ACS at this time. We will order CT scan of brain since it was a new pattern of headache for patient. Headache cocktail resolved pain. Troponin undetectable, other laboratory work is within patient's baseline. Patient reassessed, resting comfortably in bed. She was relieved to know that her heart enzymes are normal and her EKG and chest x-ray were negative. Patient counseled on the normal results of her head and neck CT. Recommended continuing Tylenol and Motrin as needed for pain. Counseled likely musculoskeletal and short course of muscle relaxers sent to pharmacy of choice. Discharge Plan Departure Patient Disposition: Home Clinical Impression: Chest pain, Neck pain, Headache Instructions: Tension Headache, DI for Chest Pain Activity Restrictions/Additional Instructions: Your CT and laboratory work today was normal. You are not having a heart attack. You likely have a musculoskeletal strain contributing to your neck, shoulder, and head pain. Continue to take Tylenol and ibuprofen as needed, a short course of muscle relaxers has been sent to your pharmacy Prescriptions: New cyclobenzaprine 10 mg tablet 10 mg PO TID PRN (Reason: muscle spasm) Qty: 30 0RF No Action estradiol 1 mg tablet 1 mg PO DAILY Qty: 90 3RF cetirizine 10 mg Tablet 10 mg PO DAILY clonazepam 1 mg tablet 1 mg PO 3XD gabapentin 800 mg tablet 800 mg PO BID trazodone 150 mg tablet 150 mg PO BEDTIME ondansetron 4 mg tablet,disintegrating 4 mg PO 4XD PRN (Reason: nausea/vomiting) Patient Comments: DISSOLVE 1 tablet ON TONGUE 3 TO 4 TIMES DAILY if needed FOR NAUSEA AND VOMITING prazosin 2 mg Capsule 2 mg PO BID spironolactone 50 mg tablet 50 mg PO QAM atomoxetine 40 mg capsule 40 mg PO QAM buprenorphine-naloxone 2-0.5 mg tablet, sublingual 4 tab SUBLINGUAL DAILY propranolol 80 mg Capsule,Extended Release 24hr 80 mg PO DAILY dexlansoprazole [Dexilant] 60 mg Capsule,Biphase Delayed Releas 60 mg PO DAILY Triumeq 600-50-300 mg tablet 1 tab PO DAILY Adult Low Dose Aspirin 81 mg DAILY atorvastatin 20 mg tablet 20 mg PO DAILY duloxetine 60 mg Capsule,Delayed Release(Dr/Ec) 60 mg PO DAILY Invokamet 150-1,000 mg Tablet 1 tab PO BID Referrals: Nidhi Faustin DO [Primary Care Provider] - Stand Alone Forms: Patient Portal/API
--- NOTE | 2023-08-10 19:33 | DI.RAD.S_ITS ---
PROCEDURE: XR CHEST 1V INDICATIONS: CHEST PAIN TECHNIQUE: One view of the chest was acquired. COMPARISON: [facility], CR, XR CHEST 1V, 04/10/2023, 13:49. [facility], CR, XR CHEST 1V, 01/28/2023, 10:01. FINDINGS: Surgical changes and devices: None. Lungs and pleura: Lungs are clear. No pleural effusions or pneumothorax. Mediastinum: Mediastinal contours appear normal. Heart size is normal. Bones and chest wall: No suspicious bony lesions. Overlying soft tissues appear unremarkable. IMPRESSION: No acute cardiopulmonary abnormality is seen. Dictated by: Daniel Krishnamurthy M.D. on 08/10/2023 at 20:52 Approved by: Daniel Krishnamurthy M.D. on 08/10/2023 at 20:52
--- NOTE | 2023-08-10 19:33 | DI.CT.S_ITS ---
PROCEDURE: CT HEAD/BRAIN WO CON INDICATIONS: SOLITARIO/NEW PATTERN TECHNIQUE: Noncontrast 4.5 mm thick angled axial sections acquired from the foramen magnum to the vertex, with coronal and sagittal reformats. For radiation dose reduction, the following was used: automated exposure control, adjustment of mA and/or kV according to patient size. COMPARISON: [facility], CT, CT HEAD/BRAIN WO CON, 07/22/2023, 16:03. FINDINGS: Image quality: Diagnostic. CSF spaces: Basal cisterns are patent. No extra-axial fluid collections. Ventricles are normal in size and shape. Brain: No midline shift. No intracranial masses or hemorrhage. Sunshine-white matter interface is normal. Skull and face: Calvarium and visualized facial bones are intact, without suspicious lesions. Sinuses: Visualized sinuses and mastoids are clear. IMPRESSION: No acute intracranial pathology. Dictated by: Daniel Krishnamurthy M.D. on 08/10/2023 at 20:22 Approved by: Daniel Krishnamurthy M.D. on 08/10/2023 at 20:23
[2023-08-10 20:02] LABS: Add Manual Diff / Slide Review NO; Basophils Absolute Auto 100 /uL (0-100); Basophils Percent Auto 1.4 % (0-2); Eosinophils Absolute Auto 200 /uL (0-450); Eosinophils Percent Auto 1.9 % (2-4); Hematocrit 40.8 % (36-46); Hemoglobin 13.5 g/dL (12.0-16.0); Lymphocytes Absolute Auto 3600 /uL (1100-4500); Lymphocytes Percent Auto 40.9 % (25-40); Mean Corpuscular HGB Conc 33.1 % (30-36); Mean Corpuscular Hemoglobin 30.5 PG (26-34); Mean Corpuscular Volume 92.3 fL (80-100); Monocytes Absolute Auto 400 /uL (0-900); Neutrophils Absolute Auto 4500 /uL (1500-7000); Neutrophils Percent Auto 50.8 % (50-75); Platelet Count 227 X10^3/uL (150-400); Red Blood Cell Count 4.42 X10^6/uL (4.0-5.2); White Blood Cell Count 8.9 X10^3/uL (4.5-11.0)
--- NOTE | 2023-08-10 20:05 | DI.CT.S_ITS ---
PROCEDURE: CT CERVICAL SPINE WO CON INDICATIONS: BURNING NECK PAIN, SOLITARIO TECHNIQUE: Noncontrast 3 mm thick sections acquired from the skull base to the T4 level. Sagittal and coronal reformats were then constructed. For radiation dose reduction, the following was used: automated exposure control, adjustment of mA and/or kV according to patient size. COMPARISON: [facility], CT, C-SPINE WITHOUT CONTRAST, 01/17/2013, 14:52. FINDINGS: Image quality: Excellent. Bones: No fractures or dislocations. Multilevel degenerative changes of the cervical spine. Visualized superior ribs are intact. Soft tissues: Prevertebral soft tissues are normal in thickness. No paravertebral hematomas. No apical pneumothoraces. IMPRESSION: No displaced fracture or traumatic subluxation. Multilevel degenerative changes of the cervical spine. Dictated by: Daniel Krishnamurthy M.D. on 08/10/2023 at 20:23 Approved by: Daniel Krishnamurthy M.D. on 08/10/2023 at 20:25
[2023-08-10 20:13] LABS: Alanine Aminotransferase 15 IU/L (<35); Albumin 4.3 g/dL (3.5-5.0); Albumin Globulin Ratio 1.4 (1.0-2.8); Alkaline Phosphatase 67 U/L (38-126); Aspartate Aminotransferase 20 IU/L (14-36); BUN Creatinine Ratio 15.6 (6-22); Bilirubin Total 0.4 mg/dL (0.2-1.3); Blood Urea Nitrogen 14 mg/dL (7-17); Calcium 9.6 mg/dL (8.4-10.2); Carbon Dioxide 25 mmol/L (22-32); Chloride 104 mmol/L (98-107); Creatine Kinase 27 U/L (30-135); Estimated Glomerular Filt Rate > 60 mL/min (>60); Globulin 3.1 g/dL (1.7-4.1); Glucose 182 mg/dL (70-100); HEMOLYSIS < 15 (0-50); Potassium 4.3 mmol/L (3.4-5.1); Sodium 136 mmol/L (137-145); Total Protein 7.4 g/dL (6.3-8.2)
[2023-08-10 20:25] LABS: Troponin I < 0.012 ng/mL (0.01-0.034)
[2023-08-10] MEDS: DROPERIDOL 5 MG/2 ML VIAL 2.5 MG IV (20:31)
[2023-08-10] MEDS: METOCLOPRAMIDE 10 MG/2 ML INJ IV (20:32)
[2023-08-10] MEDS: diphenhydrAMINE 50 MG/ML VIAL IV (20:32)
[2023-08-10] MEDS: KETOROLAC 30 MG/ML VIAL 15 MG IV (20:32)
== END 2023-08-10 22:23 | disposition home or self-care (01) ==
PROVIDERS: Emergency Provider Emergency Medicine; PCP Family Medicine
DX: R07.9 Chest pain, unspecified (principal); M54.2 Cervicalgia; R51.9 Headache, unspecified
CPT/HCPCS: 36415; 70450; 71045; 72125; 80053; 82550; 84484; 85025; 85610; 93005; 96374; 96375; 99284; J1200; J1790; J1885; J2765

== ENCOUNTER 2023-09-22 20:40 | Emergency (ER) | payer MEDICARE, OTHER, SELFPAY ==
[2023-07-22 19:53] VITALS: BMI 25.8
[2023-09-22] VITALS (7 sets, daily range): BP systolic 122–148; BP diastolic 64–85; PULSE 70–94; RESP 12–24; TEMP 36.8; O2SAT 95–100; BMI 25.8
[2023-09-22] MEDS: MAG HYDROX/ALUM/SIMETH 30 ML UDC PO (21:51)
[2023-09-22] MEDS: LIDOCAINE VISCOUS 2% 15 ML SOLUTION PO (21:52)
--- NOTE | 2023-09-22 22:17 | DI.RAD.S_ITS ---
PROCEDURE: XR CHEST 1V INDICATIONS: CHEST PAIN TECHNIQUE: One view of the chest was acquired. COMPARISON: [facility], CR, XR CHEST 1V, 08/10/2023, 20:10. FINDINGS: Surgical changes and devices: None. Lungs and pleura: Lungs are clear. No pleural effusions or pneumothorax. Mediastinum: Mediastinal contours appear normal. Heart size is normal. Bones and chest wall: No suspicious bony lesions. Overlying soft tissues appear unremarkable. IMPRESSION: No acute cardiopulmonary pathology. Dictated by: Gilbert Reed M.D. on 09/22/2023 at 22:33 Approved by: Gilbert Reed M.D. on 09/22/2023 at 22:33
[2023-09-22 22:28] LABS: Add Manual Diff / Slide Review NO; Basophils Absolute Auto 100 /uL (0-100); Basophils Percent Auto 0.8 % (0-2); Eosinophils Absolute Auto 200 /uL (0-450); Eosinophils Percent Auto 1.4 % (2-4); Hematocrit 43.6 % (36-46); Hemoglobin 14.4 g/dL (12.0-16.0); Lymphocytes Absolute Auto 4400 /uL (1100-4500); Lymphocytes Percent Auto 39.2 % (25-40); Mean Corpuscular HGB Conc 33.1 % (30-36); Mean Corpuscular Hemoglobin 29.9 PG (26-34); Mean Corpuscular Volume 90.3 fL (80-100); Monocytes Absolute Auto 400 /uL (0-900); Neutrophils Absolute Auto 6200 /uL (1500-7000); Neutrophils Percent Auto 54.6 % (50-75); Platelet Count 273 X10^3/uL (150-400); Red Blood Cell Count 4.83 X10^6/uL (4.0-5.2); Red Cell Distribution Width 14.2 % (11.6-14.8); White Blood Cell Count 11.3 X10^3/uL (4.5-11.0)
[2023-09-22 22:34] LABS: Alanine Aminotransferase 15 IU/L (<35); Albumin 4.4 g/dL (3.5-5.0); Albumin Globulin Ratio 1.3 (1.0-2.8); Alkaline Phosphatase 72 U/L (38-126); Aspartate Aminotransferase 42 IU/L (14-36); BUN Creatinine Ratio 12.8 (6-22); Bilirubin Total 0.5 mg/dL (0.2-1.3); Blood Urea Nitrogen 11 mg/dL (7-17); Calcium 9.9 mg/dL (8.4-10.2); Carbon Dioxide 27 mmol/L (22-32); Chloride 105 mmol/L (98-107); Creatine Kinase 41 U/L (30-135); Estimated Glomerular Filt Rate > 60 mL/min (>60); Globulin 3.3 g/dL (1.7-4.1); Glucose 105 mg/dL (70-100); HEMOLYSIS 25 (0-50); Lipase 194 U/L (23-300); Potassium 4.2 mmol/L (3.4-5.1); Sodium 137 mmol/L (137-145); Total Protein 7.7 g/dL (6.3-8.2)
[2023-09-22 22:45] LABS: Troponin I < 0.012 ng/mL (0.01-0.034)
[2023-09-22] MEDS: DROPERIDOL 5 MG/2 ML VIAL 2.5 MG IV (22:54)
[2023-09-22] MEDS: SODIUM CHLORIDE 0.9% 1,000 ML 1000 ML IV (22:55)
--- NOTE | 2023-09-22 23:18 | ED.CHESTPAIN ---
HPI - Chest Pain General Chief Complaint: Chest Pain Stated Complaint: chest and stomach pain, not eating for 2 days Time Seen by Provider: 09/22/23 20:43 Source: patient Mode of arrival: Ambulatory Limitations: no limitations History of Present Illness HPI narrative: 52-year-old female presents for nausea, vomiting, abdominal pain, chest pain. Patient has chronic abdominal pain with nausea vomiting. Has been seen numerous times in this ED for similar. Related Data Home Medications Medication Instructions Recorded Confirmed abacavir 600 mg-dolutegravir 50 1 tab PO DAILY 09/14/22 07/27/23 mg-lamivudine 300 mg tablet (Triumeq) atomoxetine 40 mg capsule 40 mg PO QAM 09/14/22 07/27/23 buprenorphine 2 mg-naloxone 0.5 mg 4 tab sublingual DAILY 09/14/22 07/27/23 sublingual tablet cetirizine 10 mg tablet 10 mg PO DAILY 09/14/22 07/27/23 clonazepam 1 mg tablet 1 mg PO 3XD 09/14/22 07/27/23 dexlansoprazole 60 mg 60 mg PO DAILY 09/14/22 07/27/23 capsule,biphase delayed release (Dexilant) gabapentin 800 mg tablet 800 mg PO BID 09/14/22 07/27/23 ondansetron 4 mg disintegrating 4 mg PO 4XD PRN nausea/vomiting 09/14/22 07/27/23 tablet prazosin 2 mg capsule 2 mg PO BID 09/14/22 07/27/23 propranolol 80 mg capsule,extended 80 mg PO DAILY 09/14/22 07/27/23 release 24 hr spironolactone 50 mg tablet 50 mg PO QAM 09/14/22 07/27/23 trazodone 150 mg tablet 150 mg PO BEDTIME 09/14/22 07/27/23 atorvastatin 20 mg tablet 20 mg PO DAILY 07/23/23 07/27/23 canagliflozin 150 mg-metformin 1 tab PO BID 07/23/23 07/27/23 1,000 mg tablet (Invokamet) duloxetine 60 mg capsule,delayed 60 mg PO DAILY 07/23/23 07/27/23 release Adult Low Dose Aspirin 81 mg DAILY 07/27/23 07/27/23 Previous Rx's Medication Instructions Recorded estradiol 1 mg tablet 1 mg PO DAILY #90 tabs 07/07/23 cyclobenzaprine 10 mg tablet 10 mg PO TID PRN muscle spasm #30 08/10/23 tabs Allergies Allergy/AdvReac Type Severity Reaction Status Date / Time levofloxacin [LEVOFLOXACIN] Allergy Severe hives Verified 07/22/23 14:50 Sulfa (Sulfonamide Allergy Severe rash Verified 07/22/23 14:50 Antibiotics) [SULFA (SULFONAMIDE ANTIBIOTICS)] amoxicillin [From AUGMENTIN] Allergy Mild rash Verified 07/22/23 14:50 ciprofloxacin [From CIPRO] Allergy Mild rash Verified 07/22/23 14:50 clarithromycin [From BIAXIN] Allergy Mild rash Verified 07/22/23 14:50 clavulanic acid Allergy Mild rash Verified 07/22/23 14:50 [From AUGMENTIN] morphine [MORPHINE] AdvReac Mild n/v Verified 07/22/23 14:50 pregabalin [PREGABALIN] AdvReac Mild lost voice Verified 07/22/23 14:50 Patient History Medical History Retained ureteral stent Hx of osteoarthritis Hx of migraine headaches History of liver disease Kidney stone on left side Bipolar disorder Arthritis HIV (human immunodeficiency virus infection) History of gastrointestinal symptoms Anxiety Diabetes mellitus Hypertension GERD (gastroesophageal reflux disease) Fibroids Depression PTSD (post-traumatic stress disorder) Surgical History History of stress incontinence procedure using tension free vaginal tape (2013) History of cystoscopy (2013) S/P functional endoscopic sinus surgery (2002) Status post arthroscopy (2003) Status post laparoscopic supracervical hysterectomy (2011) Status post cholecystectomy (2011) Family History Father Diabetes mellitus Hypertension CVA (cerebral vascular accident) Mother Diabetes mellitus Hypertension CVA (cerebral vascular accident) Hearing impairment Brother Hypertension Social History marital status: number of children: 3 household members: spouse occupational status: disabled Smoking Status: Current every day smoker alcohol intake: never caffeine: Yes Type(s) of exercise: none Smoking Status: Current every day smoker tobacco type: cigarettes alcohol intake frequency: holidays/special occasions only Substance Use Type: marijuana and hallucinogens Exam Initial Vital Signs Initial Vital Signs: Vital Signs Temperature 98.3 F 09/22/23 20:44 Pulse Rate 88 09/22/23 20:44 Respiratory Rate 20 09/22/23 20:44 Blood Pressure 148/64 H 09/22/23 20:44 Pulse Oximetry 100 09/22/23 20:44 Oxygen Delivery Method Room Air 09/22/23 20:44 Const: Awake, alert, no acute distress Cardiac: regular rate, regular rhythm RESP: unlabored, clear bilaterally GI: Soft, nontender, nondistended Skin: Warm, Dry, intact, no rashes Neuro: AO x3, CN II-XII grossly intact, ambulatory without difficulty Course Orders Ordered: ED Orders 09/22/23 20:58 EKG-12 Lead Stat 09/22/23 21:37 CBC Auto Diff [Complete Blood Count AUTO DIFF] Stat CMP [Comprehensive Metabolic Panel] Stat Lipase Stat Troponin & CK Cardiac Panel Stat 09/22/23 22:17 Chest [XR chest 1V] Stat EKG-12 Lead Stat Discontinued Medications Al Hydrox/Mg Hydrox/Simethicone (Mag Hydrox/Alum/Simeth 30 Ml Udc) 30 ml PO NOW ONE Stop: 09/22/23 21:30 Last Admin: 09/22/23 21:51 Dose: 30 ml Documented By: OTTO Droperidol (Droperidol 5 Mg/2 Ml Vial) 2.5 mg IV NOW ONE Stop: 09/22/23 22:18 Last Admin: 09/22/23 22:54 Dose: 2.5 mg Documented By: OTTO Sodium Chloride (Normal Saline 0.9%) 1,000 mls @ 1,000 mls/hr IV BOLUS ONE Stop: 09/22/23 23:16 Last Infusion: 09/22/23 23:28 Dose: Infused Documented By: Admin: 09/22/23 22:55 Dose: 1,000 mls/hr Documented By: OTTO Lidocaine HCl (Lidocaine Viscous 2% 15 Ml Solution) 15 ml PO NOW ONE Stop: 09/22/23 21:30 Last Admin: 09/22/23 21:52 Dose: 15 ml Documented By: OTTO Vital Signs Vital signs: Vital Signs - 8 hr 09/22/23 21:39 09/22/23 21:39 09/22/23 22:00 Pulse Rate 76 Respiratory Rate 18 Blood Pressure 141/84 H 140/76 Pulse Oximetry 99 09/22/23 22:00 09/22/23 22:30 09/22/23 22:30 Pulse Rate 86 91 H Respiratory Rate 12 24 Blood Pressure 141/85 H Pulse Oximetry 97 98 09/22/23 23:00 09/22/23 23:00 Pulse Rate 94 H Respiratory Rate 19 Blood Pressure 122/71 Pulse Oximetry 95 MDM - Chest Pain Lab Data 09/22/23 21:37 09/22/23 21:37 Labs: Lab Results 09/22/23 Range/Units 21:37 WBC 11.3 H (4.5-11.0) X10^3/uL RBC 4.83 (4.0-5.2) X10^6/uL Hgb 14.4 (12.0-16.0) g/dL Hct 43.6 (36-46) % MCV 90.3 (80-100) fL MCH 29.9 (26-34) PG MCHC 33.1 (30-36) % RDW 14.2 (11.6-14.8) % Plt Count 273 (150-400) X10^3/uL Neut % (Auto) 54.6 (50-75) % Lymph % (Auto) 39.2 (25-40) % [place] % (Auto) 4.0 (3-14) % Eos % (Auto) 1.4 L (2-4) % Baso % (Auto) 0.8 (0-2) % Neut # (Auto) 6200 (4830-0892) /uL Lymph # (Auto) 4400 (6610-5182) /uL [place] # (Auto) 400 (0-900) /uL Eos # (Auto) 200 (0-450) /uL Baso # (Auto) 100 (0-100) /uL Sodium 137 (137-145) mmol/L Potassium 4.2 (3.4-5.1) mmol/L Chloride 105 (98-107) mmol/L Carbon Dioxide 27 (22-32) mmol/L BUN 11 (7-17) mg/dL Creatinine 0.86 (0.52-1.04) mg/dL Estimated GFR > 60 (>60) mL/min BUN/Creatinine Ratio 12.8 (6-22) Glucose 105 H (70-100) mg/dL Calcium 9.9 (8.4-10.2) mg/dL Total Bilirubin 0.5 (0.2-1.3) mg/dL AST 42 H (14-36) IU/L ALT 15 (<35) IU/L Alkaline Phosphatase 72 (38-126) U/L Total Creatine Kinase 41 (30-135) U/L Troponin I < 0.012 (0.01-0.034) ng/mL Total Protein 7.7 (6.3-8.2) g/dL Albumin 4.4 (3.5-5.0) g/dL Globulin 3.3 (1.7-4.1) g/dL Albumin/Globulin Ratio 1.3 (1.0-2.8) Lipase 194 (23-300) U/L ECG Data Interpretation: Normal sinus rhythm at 69 beats per minute. Normal MD, normal axis, no ST T wave changes, no STEMI MDM Narrative Medical decision making narrative: Patient presenting with multiple complaints. Laboratory work, EKG, chest x-ray ordered. Laboratory work reviewed, unremarkable. No significant change from previous laboratory results. Troponin undetectable. EKG sinus rhythm without ischemic findings. Chest x-ray negative for acute findings. Prior to discussion of results with patient and her the patient removed her IV and told nursing staff that she had to leave because she was due for Suboxone. Patient was told by nursing staff that we could provide her nighttime Suboxone dose, however patient and her has been eloped from the emergency department without any further discussion with myself or nursing staff. Discharge Plan Departure Patient Disposition: Elopement Clinical Impression: Nausea & vomiting, Eloped from emergency department Prescriptions: No Action estradiol 1 mg tablet 1 mg PO DAILY Qty: 90 3RF cetirizine 10 mg Tablet 10 mg PO DAILY clonazepam 1 mg tablet 1 mg PO 3XD gabapentin 800 mg tablet 800 mg PO BID trazodone 150 mg tablet 150 mg PO BEDTIME ondansetron 4 mg tablet,disintegrating 4 mg PO 4XD PRN (Reason: nausea/vomiting) Patient Comments: DISSOLVE 1 tablet ON TONGUE 3 TO 4 TIMES DAILY if needed FOR NAUSEA AND VOMITING prazosin 2 mg Capsule 2 mg PO BID spironolactone 50 mg tablet 50 mg PO QAM atomoxetine 40 mg capsule 40 mg PO QAM buprenorphine-naloxone 2-0.5 mg tablet, sublingual 4 tab SUBLINGUAL DAILY propranolol 80 mg Capsule,Extended Release 24hr 80 mg PO DAILY dexlansoprazole [Dexilant] 60 mg Capsule,Biphase Delayed Releas 60 mg PO DAILY Triumeq 600-50-300 mg tablet 1 tab PO DAILY Adult Low Dose Aspirin 81 mg DAILY cyclobenzaprine 10 mg tablet 10 mg PO TID PRN (Reason: muscle spasm) Qty: 30 0RF atorvastatin 20 mg tablet 20 mg PO DAILY duloxetine 60 mg Capsule,Delayed Release(Dr/Ec) 60 mg PO DAILY Invokamet 150-1,000 mg Tablet 1 tab PO BID Referrals: Nidhi Faustin DO [Primary Care Provider] -
--- NOTE | 2023-09-22 23:21 | PC.NURSE ---
Pt spouse came to nursing station to obtain a nurse due to pt pulled out IV. Cleaned pt arm up and placed 2x2 with coban. Pt wanted to leave due to her suboxone being due. Advised pt that we can order her suboxone, however she was not wanting to wait and just got dressed and left with spouse. They did not wait for follow up from this nurse or provider.
== END 2023-09-22 23:36 | disposition left against medical advice (07) ==
PROVIDERS: Emergency Provider Emergency Medicine; PCP Family Medicine
DX: R11.2 Nausea with vomiting, unspecified (principal); R07.9 Chest pain, unspecified; R10.9 Unspecified abdominal pain; Z53.29 Procedure and treatment not carried out because of patient's decision for other reasons
CPT/HCPCS: 71045; 80053; 82550; 83690; 84484; 85025; 93005; 96374; 99284; J1790

== ENCOUNTER 2023-10-06 18:35 | Emergency (ER) | payer MEDICARE, OTHER, SELFPAY ==
[2023-07-22 19:53] VITALS: BMI 25.8
[2023-10-06] VITALS (14 sets, daily range): BP systolic 110–176; BP diastolic 53–73; PULSE 61–98; RESP 18; TEMP 36.6; O2SAT 95–100; BMI 26.1
--- NOTE | 2023-10-06 19:12 | DI.RAD.S_ITS ---
PROCEDURE: XR CHEST 1V INDICATIONS: SOB TECHNIQUE: One view of the chest was acquired. COMPARISON: [facility], CR, XR CHEST 1V, 09/22/2023, 22:22. [facility], CR, XR CHEST 1V, 08/10/2023, 20:10. FINDINGS: Surgical changes and devices: None. Lungs and pleura: Lungs are clear. No pleural effusions or pneumothorax. Mediastinum: Mediastinal contours appear normal. Heart size is normal. Bones and chest wall: No suspicious bony lesions. Overlying soft tissues appear unremarkable. IMPRESSION: No acute cardiopulmonary abnormality is seen. Dictated by: Everett Russell M.D. on 10/06/2023 at 19:46 Approved by: Everett Russell M.D. on 10/06/2023 at 19:47
[2023-10-06] MEDS: ONDANSETRON 4 MG/2 ML INJ IV (19:19)
[2023-10-06 19:27] LABS: Add Manual Diff / Slide Review NO; Basophils Absolute Auto 100 /uL (0-100); Eosinophils Absolute Auto 100 /uL (0-450); Eosinophils Percent Auto 0.7 % (2-4); Hematocrit 45.4 % (36-46); Hemoglobin 15.1 g/dL (12.0-16.0); Lymphocytes Absolute Auto 3100 /uL (1100-4500); Lymphocytes Percent Auto 24.1 % (25-40); Mean Corpuscular HGB Conc 33.3 % (30-36); Mean Corpuscular Hemoglobin 30.3 PG (26-34); Mean Corpuscular Volume 90.9 fL (80-100); Monocytes Absolute Auto 500 /uL (0-900); Monocytes Percent Auto 3.7 % (3-14); Neutrophils Absolute Auto 8900 /uL (1500-7000); Neutrophils Percent Auto 70.5 % (50-75); Platelet Count 302 X10^3/uL (150-400); Red Cell Distribution Width 14.3 % (11.6-14.8); White Blood Cell Count 12.7 X10^3/uL (4.5-11.0)
[2023-10-06 19:34] LABS: Alanine Aminotransferase 15 IU/L (<35); Albumin 4.5 g/dL (3.5-5.0); Albumin Globulin Ratio 1.4 (1.0-2.8); Alkaline Phosphatase 84 U/L (38-126); Aspartate Aminotransferase 25 IU/L (14-36); BUN Creatinine Ratio 10.3 (6-22); Bilirubin Total 0.7 mg/dL (0.2-1.3); Blood Urea Nitrogen 8 mg/dL (7-17); Calcium 9.5 mg/dL (8.4-10.2); Carbon Dioxide 27 mmol/L (22-32); Chloride 106 mmol/L (98-107); Estimated Glomerular Filt Rate > 60 mL/min (>60); Globulin 3.3 g/dL (1.7-4.1); Glucose 159 mg/dL (70-100); Lipase 169 U/L (23-300); Potassium 4.6 mmol/L (3.4-5.1); Sodium 140 mmol/L (137-145); Total Protein 7.8 g/dL (6.3-8.2)
[2023-10-06] MEDS: SODIUM CHLORIDE 0.9% 1,000 ML 1000 ML IV (19:34)
[2023-10-06 19:37] LABS: HEMOLYSIS 52 (0-50)
--- NOTE | 2023-10-06 19:46 | ED.NAVMDI ---
HPI - Nausea/Vomiting/Diarrhea General Chief complaint: Nausea/Vomiting/Diarrhea Stated complaint: Anxiety/vomiting,unable to take suboxone Time Seen by Provider: 10/06/23 19:11 Source: patient Mode of arrival: EMS History of Present Illness HPI Narrative: Patient is a 52-year-old female. Well known to myself. Is here for evaluation of multiple complaints to include anxiety, vomiting, unable to take her medications, back pain, headache, chest pain. She has actually not taking any of her clonazepam for approximately 4 days. She has a prescription for this but when she received her medications the clonazepam was not in the medications. She had to go to the pharmacy to moss picker the clonazepam. Her is with her. He stated that they did not realize until today that the clonazepam was not in her medications. She has been vomiting and unable to take the rest of her medicines because of it. Patient was very tearful upon my initial evaluation. Somewhat difficult to obtain an exact HPI from the patient given her anxiety in the fact that she was crying. Related Data Home Medications Medication Instructions Recorded Confirmed abacavir 600 mg-dolutegravir 50 1 tab PO DAILY 09/14/22 07/27/23 mg-lamivudine 300 mg tablet (Triumeq) atomoxetine 40 mg capsule 40 mg PO QAM 09/14/22 07/27/23 buprenorphine 2 mg-naloxone 0.5 mg 4 tab sublingual DAILY 09/14/22 07/27/23 sublingual tablet cetirizine 10 mg tablet 10 mg PO DAILY 09/14/22 07/27/23 clonazepam 1 mg tablet 1 mg PO 3XD 09/14/22 07/27/23 dexlansoprazole 60 mg 60 mg PO DAILY 09/14/22 07/27/23 capsule,biphase delayed release (Dexilant) gabapentin 800 mg tablet 800 mg PO BID 09/14/22 07/27/23 ondansetron 4 mg disintegrating 4 mg PO 4XD PRN nausea/vomiting 09/14/22 07/27/23 tablet prazosin 2 mg capsule 2 mg PO BID 09/14/22 07/27/23 propranolol 80 mg capsule,extended 80 mg PO DAILY 09/14/22 07/27/23 release 24 hr spironolactone 50 mg tablet 50 mg PO QAM 09/14/22 07/27/23 trazodone 150 mg tablet 150 mg PO BEDTIME 09/14/22 07/27/23 atorvastatin 20 mg tablet 20 mg PO DAILY 07/23/23 07/27/23 canagliflozin 150 mg-metformin 1 tab PO BID 07/23/23 07/27/23 1,000 mg tablet (Invokamet) duloxetine 60 mg capsule,delayed 60 mg PO DAILY 07/23/23 07/27/23 release Adult Low Dose Aspirin 81 mg DAILY 07/27/23 07/27/23 Previous Rx's Medication Instructions Recorded estradiol 1 mg tablet 1 mg PO DAILY #90 tabs 07/07/23 cyclobenzaprine 10 mg tablet 10 mg PO TID PRN muscle spasm #30 08/10/23 tabs Allergies Allergy/AdvReac Type Severity Reaction Status Date / Time levofloxacin [LEVOFLOXACIN] Allergy Severe hives Verified 07/22/23 14:50 Sulfa (Sulfonamide Allergy Severe rash Verified 07/22/23 14:50 Antibiotics) [SULFA (SULFONAMIDE ANTIBIOTICS)] amoxicillin [From AUGMENTIN] Allergy Mild rash Verified 07/22/23 14:50 ciprofloxacin [From CIPRO] Allergy Mild rash Verified 07/22/23 14:50 clarithromycin [From BIAXIN] Allergy Mild rash Verified 07/22/23 14:50 clavulanic acid Allergy Mild rash Verified 07/22/23 14:50 [From AUGMENTIN] morphine [MORPHINE] AdvReac Mild n/v Verified 07/22/23 14:50 pregabalin [PREGABALIN] AdvReac Mild lost voice Verified 07/22/23 14:50 Review of Systems Review of Systems ROS Unobtainable: All systems reviewed & are unremarkable except as noted in HPI and below Patient History Medical History Retained ureteral stent Hx of osteoarthritis Hx of migraine headaches History of liver disease Kidney stone on left side Bipolar disorder Arthritis HIV (human immunodeficiency virus infection) History of gastrointestinal symptoms Anxiety Diabetes mellitus Hypertension GERD (gastroesophageal reflux disease) Fibroids Depression PTSD (post-traumatic stress disorder) Surgical History History of stress incontinence procedure using tension free vaginal tape (2013) History of cystoscopy (2013) S/P functional endoscopic sinus surgery (2002) Status post arthroscopy (2003) Status post laparoscopic supracervical hysterectomy (2011) Status post cholecystectomy (2011) Family History Father Diabetes mellitus Hypertension CVA (cerebral vascular accident) Mother Diabetes mellitus Hypertension CVA (cerebral vascular accident) Hearing impairment Brother Hypertension Social History marital status: number of children: 3 household members: spouse occupational status: disabled Smoking Status: Current every day smoker alcohol intake: never caffeine: Yes Type(s) of exercise: none Smoking Status: Current every day smoker tobacco type: cigarettes alcohol intake frequency: holidays/special occasions only Substance Use Type: marijuana and hallucinogens Exam Initial Vital Signs Initial Vital Signs: Vital Signs Temperature 98 F 10/06/23 18:44 Pulse Rate 93 H 10/06/23 18:44 Respiratory Rate 18 10/06/23 18:44 Blood Pressure 123/61 10/06/23 18:44 Pulse Oximetry 99 10/06/23 18:44 Oxygen Delivery Method Room Air 10/06/23 18:44 Resp Effort & Inspection: normal respiratory effort Auscultation: clear to auscultation bilaterally Cardio Rate: regular rate Rhythm: regular rhythm GI Inspection: normal to inspection and non-distended Psych Other: Patient is very tearful. He was retching in the room. Course Orders Ordered: ED Orders 10/06/23 19:07 EKG-12 Lead Stat 10/06/23 19:12 XR chest 1V Stat 10/06/23 21:00 Urine Microscopic Stat 10/06/23 21:21 Covid-19 + FLU A/B + RSV - PCR Stat Discontinued Medications Buprenorphine/Naloxone (Buprenorphine/Naloxone 8mg/2mg 1 Tab) 1 tab SL NOW ONE Stop: 10/06/23 21:48 Last Admin: 10/06/23 21:51 Dose: 1 tab Documented By: GABI Clonazepam (Clonazepam 0.5 Mg Tablet) 1 mg PO NOW ONE Stop: 10/06/23 19:48 Last Admin: 10/06/23 20:02 Dose: 1 mg Documented By: JANICE Al Hydrox/Mg Hydrox/Simethicone 20 ml/ Lidocaine HCl 15 ml 0 ml PO NOW ONE Stop: 10/06/23 20:56 Last Admin: 10/06/23 21:08 Dose: 35 ml Documented By: GABI Hydromorphone HCl (Hydromorphone 0.5 Mg Inj) 0.5 mg IV NOW ONE Stop: 10/06/23 22:14 Last Admin: 10/06/23 22:28 Dose: 0.5 mg Documented By: GABI Hydromorphone HCl (Hydromorphone 0.5 Mg Inj) 0.5 mg IV NOW ONE Stop: 10/06/23 23:14 Last Admin: 10/06/23 23:26 Dose: 0.5 mg Documented By: GABI Sodium Chloride (Normal Saline 0.9%) 1,000 mls @ 1,000 mls/hr IV BOLUS ONE Stop: 10/06/23 20:11 Last Infusion: 10/06/23 21:36 Dose: Infused Documented By: Admin: 10/06/23 19:34 Dose: 1,000 mls/hr Documented By: JANICE Ondansetron HCl (Ondansetron 4 Mg/2 Ml Inj) 4 mg IV NOW PRN PRN Reason: Nausea And Vomiting Last Admin: 10/06/23 19:19 Dose: 4 mg Documented By: JANICE Ondansetron HCl (Ondansetron 4 Mg Odt) 4 mg PO NOW PRN PRN Reason: Nausea And Vomiting Pantoprazole Sodium (Pantoprazole 40 Mg Vial) 20 mg IV NOW ONE Stop: 10/06/23 20:56 Last Admin: 10/06/23 21:10 Dose: 20 mg Documented By: GABI Vital Signs Vital signs: Vital Signs - 8 hr 10/06/23 20:01 10/06/23 20:01 10/06/23 20:30 Pulse Rate 61 Respiratory Rate Blood Pressure 176/72 H 152/65 H Pulse Oximetry 100 Oxygen Delivery Method 10/06/23 20:30 10/06/23 21:20 10/06/23 21:22 Pulse Rate 65 64 Respiratory Rate Blood Pressure 133/65 Pulse Oximetry 99 100 Oxygen Delivery Method Room Air 10/06/23 21:22 10/06/23 21:30 10/06/23 21:30 Pulse Rate 66 79 Respiratory Rate Blood Pressure 141/65 H Pulse Oximetry 99 100 Oxygen Delivery Method 10/06/23 22:00 10/06/23 22:30 10/06/23 22:30 Pulse Rate 98 H 72 Respiratory Rate Blood Pressure 130/61 Pulse Oximetry 98 98 Oxygen Delivery Method 10/06/23 23:00 10/06/23 23:03 10/06/23 23:03 Pulse Rate 71 71 Respiratory Rate 18 Blood Pressure 110/53 L Pulse Oximetry 97 98 Oxygen Delivery Method 10/06/23 23:30 10/06/23 23:30 10/07/23 00:00 Pulse Rate 95 H Respiratory Rate Blood Pressure 115/57 L 129/60 Pulse Oximetry 95 Oxygen Delivery Method 10/07/23 00:00 Pulse Rate 95 H Respiratory Rate Blood Pressure Pulse Oximetry 98 Oxygen Delivery Method MDM - Nausea/Vomiting/Diarrhea Lab Data Attestation: I reviewed the patient's lab results. 10/06/23 18:15 10/06/23 18:15 Labs: Lab Results 10/06/23 10/06/23 10/06/23 Range/Units 18:15 21:00 21:21 WBC 12.7 H (4.5-11.0) X10^3/uL RBC 5.00 (4.0-5.2) X10^6/uL Hgb 15.1 (12.0-16.0) g/dL Hct 45.4 (36-46) % MCV 90.9 (80-100) fL MCH 30.3 (26-34) PG MCHC 33.3 (30-36) % RDW 14.3 (11.6-14.8) % Plt Count 302 (150-400) X10^3/uL Neut % (Auto) 70.5 (50-75) % Lymph % (Auto) 24.1 L (25-40) % [place] % (Auto) 3.7 (3-14) % Eos % (Auto) 0.7 L (2-4) % Baso % (Auto) 1.0 (0-2) % Neut # (Auto) 8900 H (3434-5877) /uL Lymph # (Auto) 3100 (0396-4930) /uL [place] # (Auto) 500 (0-900) /uL Eos # (Auto) 100 (0-450) /uL Baso # (Auto) 100 (0-100) /uL Sodium 140 (137-145) mmol/L Potassium 4.6 (3.4-5.1) mmol/L Chloride 106 (98-107) mmol/L Carbon Dioxide 27 (22-32) mmol/L BUN 8 (7-17) mg/dL Creatinine 0.78 (0.52-1.04) mg/dL Estimated GFR > 60 (>60) mL/min BUN/Creatinine Ratio 10.3 (6-22) Glucose 159 H (70-100) mg/dL Calcium 9.5 (8.4-10.2) mg/dL Total Bilirubin 0.7 (0.2-1.3) mg/dL AST 25 (14-36) IU/L ALT 15 (<35) IU/L Alkaline Phosphatase 84 (38-126) U/L Total Protein 7.8 (6.3-8.2) g/dL Albumin 4.5 (3.5-5.0) g/dL Globulin 3.3 (1.7-4.1) g/dL Albumin/Globulin Ratio 1.4 (1.0-2.8) Lipase 169 (23-300) U/L Urine RBC None seen (0-5/HPF) Urine WBC None seen (0-5/HPF) Ur Squamous Epith Cells 1-5 /hpf (0-5/HPF) Urine Bacteria Few (2-10) H (None) Ur Culture Indicated? Cult not indicated Vol Urine Centrifuged 10ml (spun) SARS-CoV-2 (PCR) Negative (Negative) Influenza A (RT-PCR) Flu a negative (NEGATIVE) Influenza B (RT-PCR) Flu b negative (NEGATIVE) RSV (PCR) Negative (Negative) Urine Dip Bedside Urine Glucose 1000 mg/dl Bedside Urine Bilirubin - Negative Bedside Urine Ketone +/- 5 Urine Specific [place] 1.010 Bedside Urine Occult Blood - Negative Bedside Urine pH 7.5 Bedside Urine Protein - Negative Bedside Urine Urobilinogen - Negative Bedside Urine Nitrite - Negative Bedside Urine Leukocytes - Negative Esterase Imaging Data Chest x-ray: Radiologist's Impression: PROCEDURE: XR CHEST 1V INDICATIONS: SOB TECHNIQUE: One view of the chest was acquired. COMPARISON: [facility], , XR CHEST 1V, 09/22/2023, 22:22. [facility], , XR CHEST 1V, 08/10/2023, 20:10. FINDINGS: Surgical changes and devices: None. Lungs and pleura: Lungs are clear. No pleural effusions or pneumothorax. Mediastinum: Mediastinal contours appear normal. Heart size is normal. Bones and chest wall: No suspicious bony lesions. Overlying soft tissues appear unremarkable. IMPRESSION: No acute cardiopulmonary abnormality is seen. ECG Data Attestation: I personally reviewed and interpreted this ECG as follows: Interpretation: Sinus bradycardia Ventricular rate of 59 Normal axis Normal QRS Normal QTC No ST T wave MDM Narrative Medical decision making narrative: After a period of time and medications here in the emergency department patient's symptoms have all but resolved. States she was feeling much better. Is able to tolerate oral intake. I suspect that this was an acute anxiety reaction. Potentially because she has not had her clonazepam for the past couple days. Also potentially a component of benzodiazepine withdrawal. I have low suspicion for ACS. There was no indication for antibiotics. No indication for abdominal imaging studies. Will discharge patient home. Patient's states that the prescription for her clonazepam is at the pharmacy and he can pick it up later today. They were given return precautions. They expressed understanding and agreement. Discharge Plan Departure Patient Disposition: Home Clinical Impression: Anxiety Activity Restrictions/Additional Instructions: Be sure that you were taking all of your medications as directed. Be sure that you go moss picker your clonazepam tomorrow that is at the pharmacy. Return to the emergency department for new symptoms. Prescriptions: No Action estradiol 1 mg tablet 1 mg PO DAILY Qty: 90 3RF cetirizine 10 mg Tablet 10 mg PO DAILY clonazepam 1 mg tablet 1 mg PO 3XD gabapentin 800 mg tablet 800 mg PO BID trazodone 150 mg tablet 150 mg PO BEDTIME ondansetron 4 mg tablet,disintegrating 4 mg PO 4XD PRN (Reason: nausea/vomiting) Patient Comments: DISSOLVE 1 tablet ON TONGUE 3 TO 4 TIMES DAILY if needed FOR NAUSEA AND VOMITING prazosin 2 mg Capsule 2 mg PO BID spironolactone 50 mg tablet 50 mg PO QAM atomoxetine 40 mg capsule 40 mg PO QAM buprenorphine-naloxone 2-0.5 mg tablet, sublingual 4 tab SUBLINGUAL DAILY propranolol 80 mg Capsule,Extended Release 24hr 80 mg PO DAILY dexlansoprazole [Dexilant] 60 mg Capsule,Biphase Delayed Releas 60 mg PO DAILY Triumeq 600-50-300 mg tablet 1 tab PO DAILY Adult Low Dose Aspirin 81 mg DAILY cyclobenzaprine 10 mg tablet 10 mg PO TID PRN (Reason: muscle spasm) Qty: 30 0RF atorvastatin 20 mg tablet 20 mg PO DAILY duloxetine 60 mg Capsule,Delayed Release(Dr/Ec) 60 mg PO DAILY Invokamet 150-1,000 mg Tablet 1 tab PO BID Referrals: Nidhi Faustin DO [Primary Care Provider] - Stand Alone Forms: Patient Portal/API
--- NOTE | 2023-10-06 19:59 | EKG_ITS ---
[address] [id number] [address] [address] Test Date: 2023-10-06 Pat Name: Shelbie Purdy Department: Room: Gender: F [employer]: WAYNE : 1970 Requested By: Order Number: [id number] Reading MD: Zeferino Holbrook MD Measurements Intervals [place] Rate: 59 P: 1 PA: 120 QRS: 7 QRSD: 80 T: 0 QT: 428 QTc: 423 Interpretive Statements Sinus bradycardia Electronically Signed On 10-07-2023 11:55:29 PDT by Zeferino Holbrook MD
[2023-10-06] MEDS: clonazePAM 0.5 MG TABLET 1 MG PO (20:02)
[2023-10-06] MEDS: MAG HYDROX/ALUMINUM/SIMETH SUS 20 ML, LIDOCAINE VISCOUS 2% 15 ML PO (21:08)
[2023-10-06] MEDS: PANTOPRAZOLE 40 MG VIAL 20 MG IV (21:10)
[2023-10-06 21:31] LABS: Bacteria Urine Few (2-10); Culture Indicated Urine Cult Not Indicated; RBC Urine None Seen (0-5/HPF); Squamous Epithelial Cell Urine 1-5 /HPF (0-5/HPF); Urine Volume 10mL (spun); WBC Urine None Seen (0-5/HPF)
[2023-10-06] MEDS: BUPRENORPHINE/NALOXONE 8MG/2MG 1 TAB SL (21:51)
[2023-10-06] MEDS: HYDROMORPHONE 0.5 MG INJ IV ×2 (22:28→23:26)
[2023-10-06 23:47] LABS: Influenza A - CEPHEID Flu A NEGATIVE (NEGATIVE); Influenza B - CEPHEID Flu B NEGATIVE (NEGATIVE); Respiratory Syncytial Virus Negative (Negative)
[2023-10-06 23:53] LABS: COVID-19 CEPHEID 4-PLEX PCR Negative (Negative)
[2023-10-07] VITALS: BP 129/60; PULSE 95; O2SAT 98
== END 2023-10-07 00:40 | disposition home or self-care (01) ==
PROVIDERS: Emergency Provider Emergency Medicine; PCP Family Medicine
DX: F41.9 Anxiety disorder, unspecified (principal); R00.1 Bradycardia, unspecified; R11.2 Nausea with vomiting, unspecified; M54.9 Dorsalgia, unspecified; Z20.822 Contact with and (suspected) exposure to COVID-19
CPT/HCPCS: 0241U; 36415; 71045; 80053; 81003; 81015; 83690; 85025; 93005; 96361; 96374; 96375; 96376; 99284; C9113; J1170; J2405

== ENCOUNTER 2024-08-28 14:08 | Observation (INO) | payer MEDICARE, OTHER, SELFPAY ==
[2023-07-22 19:53] VITALS: BMI 25.8
[2024-08-28] VITALS (118 sets, daily range): BP systolic 105–139; BP diastolic 53–80; PULSE 88–102; RESP 7–40; TEMP 36.4–36.7; O2SAT 88–100; BMI 26.4
[2024-08-28] MEDS: NALOXONE 0.4 MG/ML VIAL IV (14:21)
--- NOTE | 2024-08-28 14:25 | PC.NURSE ---
states him and patient were smoking fentanyl all night, last dose at 0530. Decreased level of consciousness around 0830, states in and out all day. Was at treatment and ambulance was called for her and patient refused to get in because the ambulance had been called for her . drove her here.
[2024-08-28 14:34] LABS: Add Manual Diff / Slide Review NO; Basophils Absolute Auto 100 /uL (0-100); Basophils Percent Auto 1.3 % (0-2); Eosinophils Absolute Auto 100 /uL (0-450); Hematocrit 41.5 % (36-46); Hemoglobin 13.5 g/dL (12.0-16.0); Lymphocytes Absolute Auto 3200 /uL (1100-4500); Lymphocytes Percent Auto 28.9 % (25-40); Mean Corpuscular HGB Conc 32.5 % (30-36); Mean Corpuscular Hemoglobin 28.9 PG (26-34); Mean Corpuscular Volume 88.8 fL (80-100); Monocytes Absolute Auto 700 /uL (0-900); Monocytes Percent Auto 6.3 % (3-14); Neutrophils Absolute Auto 6800 /uL (1500-7000); Neutrophils Percent Auto 62.5 % (50-75); Platelet Count 277 X10^3/uL (150-400); Red Blood Cell Count 4.67 X10^6/uL (4.0-5.2); Red Cell Distribution Width 17.8 % (11.6-14.8); White Blood Cell Count 10.9 X10^3/uL (4.5-11.0)
--- NOTE | 2024-08-28 14:38 | PC.NURSE ---
Addendum entered by Sandra Erwin R.N. 08/28/24 19:07: Pt becoming more sleepy and lethargic, but arousable. Dr Crain notified and to order Narcan drip. Addendum entered by Sandra Erwin R.N. 08/28/24 18:32: Pt given juice and offered snack. Arousable and able to sit up in bed. Dr Crain at bedside and aware of pt status. Addendum entered by Sandra Erwin R.N. 08/28/24 17:56: Pt easily alert and appropriate after giving narcan. Maintaing airway and secretions. Able to adjust position independently in bed. Addendum entered by Sandra Erwin R.N. 08/28/24 17:54: Pt lethargic and difficult to arouse. O2 sat 89& on RA. 0.2mg IV narcan given per Dr Crain verbal order. Pt placed on 2L NC and O2 sat 98%. Addendum entered by Sandra Erwin R.N. 08/28/24 17:10: Pt up to BSC with stand by assist. A&Ox4. Pt maintaining O2 sat 95% on RA & maintaining airway. Dr Crain updated on pt status. Addendum entered by Sandra Erwin R.N. 08/28/24 16:43: Sleepy but pt remains arousable, appropriate and maintaining airway. Dr Crain updated and rn instructed to notify if ETCO2 at or above 50. Addendum entered by Sandra Erwin R.N. 08/28/24 16:05: Pt remains easily arousable, appropriate and maintaining airway. Addendum entered by Sandra Erwin R.N. 08/28/24 15:54: Pt ETCO2 rising. Dr Crain notified of pt status. Verbal order for 0.2mg IV narcan. Addendum entered by Sandra Erwin R.N. 08/28/24 15:21: O2 sat 88%. Placed on 2L NC and now at 96%. Pt remains easily arousable and answers all questions appropriately. Dr Crain updated on pt status. Addendum entered by Sandra Erwin R.N. 08/28/24 14:58: Pt arousable and answers all questions appropriately. Speaking in full coherent sentences. Original Note: Pt arrived to ED with POV and had decreased LOC. Dr Crain at bedside. Pt lethargic and unable to stay awake. Pt responds to sternal rub. Verbal order from Dr Crain to give 0.4mg Narcan IV. Pt able to answer questions after administering narcan and arousable to sound/name but remains sleepy. Pt reports that her and her crushed up 150 pills of fentanyl and smoked them at approximately 0600. Pt states that EMS called while at [facility] and she declined to come to ED via ambulance. Skin pink, warm & dry. Pt c/o nausea. Able to manage airway and secretions at this time. Suction set up at bedside.
[2024-08-28 14:40] LABS: Alanine Aminotransferase 16 IU/L (<35); Albumin 4.2 g/dL (3.5-5.0); Albumin Globulin Ratio 1.3 (1.0-2.8); Alkaline Phosphatase 94 U/L (38-126); Aspartate Aminotransferase 23 IU/L (14-36); BUN Creatinine Ratio 12.5 (6-22); Bilirubin Total 0.5 mg/dL (0.2-1.3); Blood Urea Nitrogen 11 mg/dL (7-17); Calcium 9.1 mg/dL (8.4-10.2); Carbon Dioxide 22 mmol/L (22-32); Chloride 103 mmol/L (98-107); Estimated Glomerular Filt Rate > 60 mL/min (>60); Globulin 3.3 g/dL (1.7-4.1); Glucose 115 mg/dL (70-99); HEMOLYSIS < 15 (0-50); Potassium 4.2 mmol/L (3.4-5.1); Sodium 134 mmol/L (137-145); Total Protein 7.5 g/dL (6.3-8.2)
[2024-08-28] MEDS: ONDANSETRON 4 MG/2 ML INJ IV (14:55)
[2024-08-28 15:27] LABS: Acetaminophen < 10 ug/mL (10-30); Ethanol (ETOH) < 10 mg/dL; Salicylate < 1.0 mg/dL (<20)
--- NOTE | 2024-08-28 15:35 | ED_ITS ---
HPI - Overdose General Chief Complaint: Toxicology Problem Stated Complaint: Low blood pressure dehydrated Time Seen by Provider: 08/28/24 14:26 Source: patient Mode of arrival: Wheelchair History of Present Illness HPI Narrative: Both the 53-year-old female arterial polysubstance abuse HIV presenting today as decreasing mental status. She was here with her who reports that they both crushed 150 dollars worth of fentanyl pills and smoke them. This is about 30 pills he thinks maybe it was more than normal. They were actually at the methadone clinic she got a little dizzy lightheaded she did have positive orthostatics. Minimally arousable received 0.4 mg Narcan upon arrival and suddenly became nauseous and more awake and alert. Related Data Home Medications Medication Instructions Recorded Confirmed abacavir 600 mg-dolutegravir 50 1 tab PO DAILY 09/14/22 07/27/23 mg-lamivudine 300 mg tablet (Triumeq) atomoxetine 40 mg capsule 40 mg PO QAM 09/14/22 07/27/23 buprenorphine 2 mg-naloxone 0.5 mg 4 tab sublingual DAILY 09/14/22 07/27/23 sublingual tablet cetirizine 10 mg tablet 10 mg PO DAILY 09/14/22 07/27/23 clonazepam 1 mg tablet 1 mg PO 3XD 09/14/22 07/27/23 dexlansoprazole 60 mg 60 mg PO DAILY 09/14/22 07/27/23 capsule,biphase delayed release (Dexilant) gabapentin 800 mg tablet 800 mg PO BID 09/14/22 07/27/23 ondansetron 4 mg disintegrating 4 mg PO 4XD PRN nausea/vomiting 09/14/22 07/27/23 tablet prazosin 2 mg capsule 2 mg PO BID 09/14/22 07/27/23 propranolol 80 mg capsule,extended 80 mg PO DAILY 09/14/22 07/27/23 release 24 hr spironolactone 50 mg tablet 50 mg PO QAM 09/14/22 07/27/23 trazodone 150 mg tablet 150 mg PO BEDTIME 09/14/22 07/27/23 atorvastatin 20 mg tablet 20 mg PO DAILY 07/23/23 07/27/23 canagliflozin 150 mg-metformin 1 tab PO BID 07/23/23 07/27/23 1,000 mg tablet (Invokamet) duloxetine 60 mg capsule,delayed 60 mg PO DAILY 07/23/23 07/27/23 release Adult Low Dose Aspirin 81 mg DAILY 07/27/23 07/27/23 Previous Rx's Medication Instructions Recorded cyclobenzaprine 10 mg tablet 10 mg PO TID PRN muscle spasm #30 08/10/23 tabs estradiol 1 mg tablet 1 mg PO DAILY #90 tabs 06/22/24 Allergies Allergy/AdvReac Type Severity Reaction Status Date / Time levofloxacin [LEVOFLOXACIN] Allergy Severe hives Verified 08/28/24 14:12 Sulfa (Sulfonamide Allergy Severe rash Verified 08/28/24 14:12 Antibiotics) [SULFA (SULFONAMIDE ANTIBIOTICS)] amoxicillin [From AUGMENTIN] Allergy Mild rash Verified 08/28/24 14:12 ciprofloxacin [From CIPRO] Allergy Mild rash Verified 08/28/24 14:12 clarithromycin [From BIAXIN] Allergy Mild rash Verified 08/28/24 14:12 clavulanic acid Allergy Mild rash Verified 08/28/24 14:12 [From AUGMENTIN] morphine [MORPHINE] AdvReac Mild n/v Verified 08/28/24 14:12 pregabalin [PREGABALIN] AdvReac Mild lost voice Verified 08/28/24 14:12 Patient History Medical History Retained ureteral stent Hx of osteoarthritis Hx of migraine headaches History of liver disease Kidney stone on left side Bipolar disorder Arthritis HIV (human immunodeficiency virus infection) History of gastrointestinal symptoms Anxiety Diabetes mellitus Hypertension GERD (gastroesophageal reflux disease) Fibroids Depression PTSD (post-traumatic stress disorder) Surgical History History of stress incontinence procedure using tension free vaginal tape (2013) History of cystoscopy (2013) S/P functional endoscopic sinus surgery (2002) Status post arthroscopy (2003) Status post laparoscopic supracervical hysterectomy (2011) Status post cholecystectomy (2011) Family History Father Diabetes mellitus Hypertension CVA (cerebral vascular accident) Mother Diabetes mellitus Hypertension CVA (cerebral vascular accident) Hearing impairment Brother Hypertension Social History marital status: number of children: 3 household members: spouse occupational status: disabled alcohol intake: never caffeine: Yes Type(s) of exercise: none tobacco type: cigarettes alcohol intake frequency: holidays/special occasions only Exam Initial Vital Signs Initial Vital Signs: Vital Signs Temperature 97.5 F L 08/28/24 14:12 Pulse Rate 94 H 08/28/24 14:12 Respiratory Rate 7 L 08/28/24 14:12 Blood Pressure 119/66 08/28/24 14:12 Pulse Oximetry 94 08/28/24 14:12 Oxygen Delivery Method Room Air 08/28/24 14:12 GENERAL: Going to be mildly arousable HEENT: Head atraumatic,EOMI, pupils reactive, face symmetric, [moist] mucous membranes CARDIOVASCULAR: Regular rate and rhythm without murmurs, rubs or gallops. RESPIRATORY: Breath sounds equal bilaterally, no wheezes rales or rhonchi. ABDOMEN: Soft, nontender. Normoactive bowel sounds all 4 quadrants. No guarding or rebound. EXTREMITIES: Normal range of motion, no clubbing or edema. Neurovascularly intact NEUROLOGICAL: Sleepy but arousable moving all extremities no gross deficits SKIN: Warm, dry, no laceration, no petechiae, no rashes or lesions. Course Orders Ordered: ED Orders 08/28/24 14:20 Acetaminophen Stat CBC Auto Diff [Complete Blood Count AUTO DIFF] Stat CMP [Comprehensive Metabolic Panel] Stat ETOH [Ethanol (ETOH)] Stat Salicylate Stat 08/28/24 17:05 Urine Drug Screen, Rapid Stat Naloxone HCl 2 mg/ Sodium (Chloride) 500 mls @ 62.5 mls/hr IV TITRATE MILY; Protocol Last Admin: 08/28/24 19:02 Dose: 0.25 mg/hr, 62.5 mls/hr Documented By: SHARAD Naloxone HCl (Naloxone 0.4 Mg/Ml Vial) 0.2 mg IV Q2MIN PRN PRN Reason: Opiate Reversal Last Admin: 08/28/24 17:51 Dose: 0.2 mg Documented By: Admin: 08/28/24 15:53 Dose: 0.2 mg Documented By: SHARAD Discontinued Medications Naloxone HCl (Naloxone 0.4 Mg/Ml Vial) 0.4 mg IV NOW ONE Stop: 08/28/24 14:22 Last Admin: 08/28/24 14:21 Dose: 0.4 mg Documented By: SHARAD Ondansetron HCl (Ondansetron 4 Mg/2 Ml Inj) 4 mg IV NOW ONE Stop: 08/28/24 14:27 Last Admin: 08/28/24 14:55 Dose: 4 mg Documented By: SHARAD Vital Signs Vital signs: Vital Signs - 8 hr 08/28/24 14:12 08/28/24 14:17 08/28/24 14:18 Temperature 97.5 F L Pulse Rate 94 H 95 H 92 H Respiratory Rate 7 L Blood Pressure 119/66 Pulse Oximetry 94 94 94 Oxygen Delivery Method Room Air Room Air Oxygen Flow Rate 08/28/24 14:18 08/28/24 14:30 08/28/24 14:51 Temperature Pulse Rate 94 H 89 Respiratory Rate 34 H 24 Blood Pressure 139/72 Pulse Oximetry 100 88 L Oxygen Delivery Method Room Air Oxygen Flow Rate 08/28/24 14:51 08/28/24 15:00 08/28/24 15:14 Temperature Pulse Rate 90 Respiratory Rate 22 Blood Pressure 124/67 105/53 L Pulse Oximetry 88 L Oxygen Delivery Method Oxygen Flow Rate 08/28/24 15:14 08/28/24 15:15 08/28/24 15:20 Temperature Pulse Rate 90 90 88 Respiratory Rate Blood Pressure Pulse Oximetry 90 L 89 L 96 Oxygen Delivery Method Room Air Nasal Cannula Oxygen Flow Rate 2 08/28/24 15:21 08/28/24 15:21 08/28/24 15:25 Temperature Pulse Rate 88 90 Respiratory Rate 18 22 Blood Pressure 117/58 L Pulse Oximetry 95 94 Oxygen Delivery Method Oxygen Flow Rate 08/28/24 15:30 08/28/24 15:35 08/28/24 15:40 Temperature Pulse Rate 90 88 90 Respiratory Rate 21 22 21 Blood Pressure Pulse Oximetry 95 97 97 Oxygen Delivery Method Oxygen Flow Rate 08/28/24 15:45 08/28/24 15:50 08/28/24 15:55 Temperature Pulse Rate 89 90 91 H Respiratory Rate 21 23 18 Blood Pressure Pulse Oximetry 97 99 97 Oxygen Delivery Method Nasal Cannula Oxygen Flow Rate 2 08/28/24 16:00 08/28/24 16:05 08/28/24 16:10 Temperature Pulse Rate 93 H 92 H 91 H Respiratory Rate 18 20 24 Blood Pressure Pulse Oximetry 99 100 98 Oxygen Delivery Method Oxygen Flow Rate 08/28/24 16:11 08/28/24 16:11 08/28/24 16:15 Temperature Pulse Rate 91 H 92 H Respiratory Rate 24 28 H Blood Pressure 131/65 Pulse Oximetry 99 99 Oxygen Delivery Method Oxygen Flow Rate 08/28/24 16:20 08/28/24 16:25 08/28/24 16:30 Temperature Pulse Rate 93 H 92 H 93 H Respiratory Rate 26 H 27 H 25 H Blood Pressure Pulse Oximetry 92 93 Oxygen Delivery Method Oxygen Flow Rate 08/28/24 16:35 08/28/24 16:40 08/28/24 16:45 Temperature Pulse Rate 93 H 93 H 93 H Respiratory Rate 25 H 24 22 Blood Pressure Pulse Oximetry 97 96 Oxygen Delivery Method Oxygen Flow Rate 08/28/24 16:50 08/28/24 16:55 08/28/24 17:00 Temperature Pulse Rate 93 H 94 H 94 H Respiratory Rate 23 23 22 Blood Pressure Pulse Oximetry 96 96 96 Oxygen Delivery Method Oxygen Flow Rate 08/28/24 17:05 08/28/24 17:10 08/28/24 17:15 Temperature Pulse Rate 99 H 96 H 94 H Respiratory Rate 16 23 23 Blood Pressure Pulse Oximetry 93 94 90 L Oxygen Delivery Method Oxygen Flow Rate 08/28/24 17:20 08/28/24 17:25 08/28/24 17:30 Temperature Pulse Rate 94 H 96 H 95 H Respiratory Rate 22 24 22 Blood Pressure Pulse Oximetry 92 91 90 L Oxygen Delivery Method Oxygen Flow Rate 08/28/24 17:35 08/28/24 17:40 08/28/24 17:45 Temperature Pulse Rate 95 H 95 H 96 H Respiratory Rate 20 21 23 Blood Pressure Pulse Oximetry 89 L 90 L 89 L Oxygen Delivery Method Oxygen Flow Rate 08/28/24 17:50 08/28/24 17:50 08/28/24 17:55 Temperature Pulse Rate 94 H 97 H Respiratory Rate 24 18 Blood Pressure 115/55 L Pulse Oximetry 92 98 Oxygen Delivery Method Nasal Cannula Nasal Cannula Oxygen Flow Rate 2 2 08/28/24 18:00 08/28/24 18:05 08/28/24 18:10 Temperature Pulse Rate 97 H 95 H 96 H Respiratory Rate 23 26 H 28 H Blood Pressure Pulse Oximetry 98 96 94 Oxygen Delivery Method Nasal Cannula Nasal Cannula Oxygen Flow Rate 2 2 08/28/24 18:15 08/28/24 18:20 08/28/24 18:25 Temperature Pulse Rate 97 H 97 H 97 H Respiratory Rate 26 H 25 H 22 Blood Pressure Pulse Oximetry 93 93 95 Oxygen Delivery Method Oxygen Flow Rate 08/28/24 18:30 08/28/24 18:35 08/28/24 18:36 Temperature Pulse Rate 97 H 97 H Respiratory Rate 24 20 Blood Pressure 116/63 Pulse Oximetry 93 92 Oxygen Delivery Method Nasal Cannula Oxygen Flow Rate 2 08/28/24 18:36 08/28/24 18:40 08/28/24 18:45 Temperature Pulse Rate 97 H 97 H 97 H Respiratory Rate 18 17 28 H Blood Pressure Pulse Oximetry 93 93 93 Oxygen Delivery Method Oxygen Flow Rate 08/28/24 18:50 08/28/24 18:55 08/28/24 19:00 Temperature Pulse Rate 97 H 98 H 97 H Respiratory Rate 22 21 16 Blood Pressure Pulse Oximetry 93 93 93 Oxygen Delivery Method Oxygen Flow Rate 08/28/24 19:05 08/28/24 19:06 08/28/24 19:06 Temperature Pulse Rate 97 H 97 H Respiratory Rate 20 28 H Blood Pressure 117/56 L Pulse Oximetry 93 94 Oxygen Delivery Method Oxygen Flow Rate 08/28/24 19:10 08/28/24 19:15 08/28/24 19:15 Temperature Pulse Rate 97 H 97 H Respiratory Rate 22 18 Blood Pressure 117/58 L Pulse Oximetry 94 93 Oxygen Delivery Method Oxygen Flow Rate 08/28/24 19:20 08/28/24 19:25 08/28/24 19:30 Temperature Pulse Rate 97 H 97 H 96 H Respiratory Rate 23 20 27 H Blood Pressure Pulse Oximetry 94 94 95 Oxygen Delivery Method Oxygen Flow Rate 08/28/24 19:30 Temperature Pulse Rate Respiratory Rate Blood Pressure 125/61 Pulse Oximetry Oxygen Delivery Method Oxygen Flow Rate MDM - Overdose Lab Data 08/28/24 14:20 08/28/24 14:20 Labs: Lab Results 08/28/24 08/28/24 Range/Units 14:20 17:05 WBC 10.9 (4.5-11.0) X10^3/uL RBC 4.67 (4.0-5.2) X10^6/uL Hgb 13.5 (12.0-16.0) g/dL Hct 41.5 (36-46) % MCV 88.8 (80-100) fL MCH 28.9 (26-34) PG MCHC 32.5 (30-36) % RDW 17.8 H (11.6-14.8) % Plt Count 277 (150-400) X10^3/uL Neut % (Auto) 62.5 (50-75) % Lymph % (Auto) 28.9 (25-40) % [place] % (Auto) 6.3 (3-14) % Eos % (Auto) 1.0 L (2-4) % Baso % (Auto) 1.3 (0-2) % Neut # (Auto) 6800 (3595-5088) /uL Lymph # (Auto) 3200 (5194-9513) /uL [place] # (Auto) 700 (0-900) /uL Eos # (Auto) 100 (0-450) /uL Baso # (Auto) 100 (0-100) /uL Sodium 134 L (137-145) mmol/L Potassium 4.2 (3.4-5.1) mmol/L Chloride 103 (98-107) mmol/L Carbon Dioxide 22 (22-32) mmol/L BUN 11 (7-17) mg/dL Creatinine 0.88 (0.52-1.04) mg/dL Estimated GFR > 60 (>60) mL/min BUN/Creatinine Ratio 12.5 (6-22) Glucose 115 H (70-99) mg/dL Calcium 9.1 (8.4-10.2) mg/dL Total Bilirubin 0.5 (0.2-1.3) mg/dL AST 23 (14-36) IU/L ALT 16 (<35) IU/L Alkaline Phosphatase 94 (38-126) U/L Total Protein 7.5 (6.3-8.2) g/dL Albumin 4.2 (3.5-5.0) g/dL Globulin 3.3 (1.7-4.1) g/dL Albumin/Globulin Ratio 1.3 (1.0-2.8) Salicylates < 1.0 (<20) mg/dL U Opiates 300ng/mL cut Negative (Negative) Ur Oxycodone Screen Negative (Negative) Urine Methadone Screen Negative (Negative) Acetaminophen < 10 (10-30) ug/mL Ur Barbiturates Screen Negative (Negative) U Tricyclic Antidepress Negative (Negative) Ur Phencyclidine Scrn Negative (Negative) Ur Amphetamines Screen Negative (Negative) U Methamphetamines Scrn Negative (Negative) Ur MDMA Scrn (Ecstasy) Negative (Negative) U Benzodiazepines Scrn Negative (Negative) Urine Cocaine Screen Negative (Negative) U Marijuana (THC) Screen Negative (Negative) Urine pH Normal (Normal) Urine Specific [place] Normal (Normal) Ethyl Alcohol < 10 ( - 10) mg/dL Ur Creatinine Normal (Normal) MDM Narrative Medical decision making narrative: Patient 53-year-old female history of HIV diabetes polysubstance abuse presenting today as opiate overdose. He was minimally responsive upon arrival but arousable received 0.4 mg of Narcan in the ED. Blood work has been reviewed overall reassuring Toxicology negative drug screen is actually negative Tylenol salicylate and alcohol also negative Patient on CO2 monitor to continues to rise in the 50s and 60s she was responsive to voice in painful stimulation. She has received multiple doses of Narcan she does wake up and become more responsive each time but then quickly falls back asleep. Narcan drip started she was definitely more awake Overdose was accidental no suicidal or homicidal ideation DR. Magaña accepts patient. Naloxone at Discharge Meets criteria for naloxone at discharge?: Yes Discharge Plan Departure Patient Disposition: Admitted As Inpatient Clinical Impression: Opiate overdose Admit Date/Time: 08/28/24 19:32 Admit Provider: Dalton Lyon
[2024-08-28] MEDS: NALOXONE 0.4 MG/ML VIAL 0.2 MG IV ×2 (15:53→17:51)
[2024-08-28 17:23] LABS: UR Morphine/Opiate cutoff 300 Negative (Negative); Ur Creatinine Normal (Normal); Ur Specific Gravity Normal (Normal); Urine Amphetamines Negative (Negative); Urine Barbiturates Negative (Negative); Urine Benzodiazepines Negative (Negative); Urine Cocaine Negative (Negative); Urine MDMA Negative (Negative); Urine Methadone Negative (Negative); Urine Methamphetamines Negative (Negative); Urine Oxycodone Negative (Negative); Urine Phencyclidine Negative (Negative); Urine Tetrahydrocannabinol Negative (Negative); Urine Tricyclic Antidepressant Negative (Negative); Urine pH Normal (Normal)
[2024-08-28] MEDS: NALOXONE 2 MG in SODIUM CHLORIDE 0.9% 500 ML 62.5 MG IV (19:02)
[2024-08-28] MEDS: SODIUM CHLORIDE 0.9% 1,000 ML 100 ML IV (20:28)
--- NOTE | 2024-08-28 20:30 | PC.NURSE ---
Patient was reporting withdrawal symptoms, including uncontrollable twitching and pain. Narcan drip was turned off after consultation with Dr. Crain.
[2024-08-28] MEDS: HEPARIN 5,000 UNIT/ML VIAL 5000 UNIT SUBCUT (22:07)
--- NOTE | 2024-08-28 23:04 | PM.HP.1 ---
History of Present Illness History of Present Illness Chief complaint: Low blood pressure dehydrated Narrative: 53-year-old female with past medical history polysubstance abuse, HIV migraine, liver disease, bipolar disorder, anxiety, diabetes, hypertension, GERD, depression and PTSD presents with fentanyl overdose. Per the patient's 's report, the patient's and her crush about $150 worth of fentanyl pills and started to smoke from. However the patient states that the patient became very confused and decreased in her mentation shortly after. The patient's was concerned that they may have taken more than the usual dose at 8 abuse. The patient are actually at the methadone clinic and patient lightheadedness and was positive orthostatic. The patient was minimally arousable and was ceased and he received 0.4 mg Narcan into ER. The patient became more awake and alert but did not report of any vomiting. In our ER the patient became somnolent again and Narcan drip was started. Patient remains hemodynamically stable, saturating well on room air. Labs were relatively benign except for sodium 134 and glucose of 115. Per the patient's the patient overdosed on fentanyl was accidental and not suicidal. ER physician requested to admit to ICU with Narcan drip. FORMERLY [facility], 1928–1983 Medical History Retained ureteral stent Hx of osteoarthritis Hx of migraine headaches History of liver disease Kidney stone on left side Bipolar disorder Arthritis HIV (human immunodeficiency virus infection) History of gastrointestinal symptoms Anxiety Diabetes mellitus Hypertension GERD (gastroesophageal reflux disease) Fibroids Depression PTSD (post-traumatic stress disorder) Surgical History History of stress incontinence procedure using tension free vaginal tape (2013) History of cystoscopy (2013) S/P functional endoscopic sinus surgery (2002) Status post arthroscopy (2003) Status post laparoscopic supracervical hysterectomy (2011) Status post cholecystectomy (2011) Family History Father Diabetes mellitus Hypertension CVA (cerebral vascular accident) Mother Diabetes mellitus Hypertension CVA (cerebral vascular accident) Hearing impairment Brother Hypertension Social History marital status: number of children: 3 household members: spouse occupational status: disabled Smoking Status: Current every day smoker alcohol intake: current caffeine: Yes Type(s) of exercise: none Meds Home Medications and Allergies Home Medications Medication Instructions Recorded Confirmed Type abacavir 600 mg-dolutegravir 50 1 tab PO DAILY 09/14/22 07/27/23 History mg-lamivudine 300 mg tablet (Triumeq) atomoxetine 40 mg capsule 40 mg PO QAM 09/14/22 07/27/23 History buprenorphine 2 mg-naloxone 0.5 mg 4 tab sublingual DAILY 09/14/22 07/27/23 History sublingual tablet cetirizine 10 mg tablet 10 mg PO DAILY 09/14/22 07/27/23 History clonazepam 1 mg tablet 1 mg PO 3XD 09/14/22 07/27/23 History dexlansoprazole 60 mg 60 mg PO DAILY 09/14/22 07/27/23 History capsule,biphase delayed release (Dexilant) gabapentin 800 mg tablet 800 mg PO BID 09/14/22 07/27/23 History ondansetron 4 mg disintegrating 4 mg PO 4XD PRN nausea/vomiting 09/14/22 07/27/23 History tablet prazosin 2 mg capsule 2 mg PO BID 09/14/22 07/27/23 History propranolol 80 mg capsule,extended 80 mg PO DAILY 09/14/22 07/27/23 History release 24 hr spironolactone 50 mg tablet 50 mg PO QAM 09/14/22 07/27/23 History trazodone 150 mg tablet 150 mg PO BEDTIME 09/14/22 07/27/23 History atorvastatin 20 mg tablet 20 mg PO DAILY 07/23/23 07/27/23 History canagliflozin 150 mg-metformin 1 tab PO BID 07/23/23 07/27/23 History 1,000 mg tablet (Invokamet) duloxetine 60 mg capsule,delayed 60 mg PO DAILY 07/23/23 07/27/23 History release Adult Low Dose Aspirin 81 mg DAILY 07/27/23 07/27/23 History cyclobenzaprine 10 mg tablet 10 mg PO TID PRN muscle spasm #30 08/10/23 Rx tabs estradiol 1 mg tablet 1 mg PO DAILY #90 tabs 06/22/24 Rx Allergies Allergy/AdvReac Type Severity Reaction Status Date / Time levofloxacin [LEVOFLOXACIN] Allergy Severe hives Verified 08/28/24 14:12 Sulfa (Sulfonamide Allergy Severe rash Verified 08/28/24 14:12 Antibiotics) [SULFA (SULFONAMIDE ANTIBIOTICS)] amoxicillin [From AUGMENTIN] Allergy Mild rash Verified 08/28/24 14:12 ciprofloxacin [From CIPRO] Allergy Mild rash Verified 08/28/24 14:12 clarithromycin [From BIAXIN] Allergy Mild rash Verified 08/28/24 14:12 clavulanic acid Allergy Mild rash Verified 08/28/24 14:12 [From AUGMENTIN] morphine [MORPHINE] AdvReac Mild n/v Verified 08/28/24 14:12 pregabalin [PREGABALIN] AdvReac Mild lost voice Verified 08/28/24 14:12 Review of Systems Review of Systems Narrative: Limited as patient mentation is depressed Exam Vital Signs (past 8 hours): - 08/28/24 15:14 08/28/24 15:14 08/28/24 15:15 Temperature Pulse Rate 90 90 Respiratory Rate Blood Pressure 105/53 L Pulse Oximetry 90 L 89 L Oxygen Delivery Method Room Air Oxygen Flow Rate Fraction of Inspired Oxygen 08/28/24 15:20 08/28/24 15:21 08/28/24 15:21 Temperature Pulse Rate 88 88 Respiratory Rate 18 Blood Pressure 117/58 L Pulse Oximetry 96 95 Oxygen Delivery Method Nasal Cannula Oxygen Flow Rate 2 Fraction of Inspired Oxygen 08/28/24 15:25 08/28/24 15:30 08/28/24 15:35 Temperature Pulse Rate 90 90 88 Respiratory Rate 22 21 22 Blood Pressure Pulse Oximetry 94 95 97 Oxygen Delivery Method Oxygen Flow Rate Fraction of Inspired Oxygen 08/28/24 15:40 08/28/24 15:45 08/28/24 15:50 Temperature Pulse Rate 90 89 90 Respiratory Rate 21 21 23 Blood Pressure Pulse Oximetry 97 97 99 Oxygen Delivery Method Nasal Cannula Oxygen Flow Rate 2 Fraction of Inspired Oxygen 08/28/24 15:55 08/28/24 16:00 08/28/24 16:05 Temperature Pulse Rate 91 H 93 H 92 H Respiratory Rate 18 18 20 Blood Pressure Pulse Oximetry 97 99 100 Oxygen Delivery Method Oxygen Flow Rate Fraction of Inspired Oxygen 08/28/24 16:10 08/28/24 16:11 08/28/24 16:11 Temperature Pulse Rate 91 H 91 H Respiratory Rate 24 24 Blood Pressure 131/65 Pulse Oximetry 98 99 Oxygen Delivery Method Oxygen Flow Rate Fraction of Inspired Oxygen 08/28/24 16:15 08/28/24 16:20 08/28/24 16:25 Temperature Pulse Rate 92 H 93 H 92 H Respiratory Rate 28 H 26 H 27 H Blood Pressure Pulse Oximetry 99 92 Oxygen Delivery Method Oxygen Flow Rate Fraction of Inspired Oxygen 08/28/24 16:30 08/28/24 16:35 08/28/24 16:40 Temperature Pulse Rate 93 H 93 H 93 H Respiratory Rate 25 H 25 H 24 Blood Pressure Pulse Oximetry 93 97 Oxygen Delivery Method Oxygen Flow Rate Fraction of Inspired Oxygen 08/28/24 16:45 08/28/24 16:50 08/28/24 16:55 Temperature Pulse Rate 93 H 93 H 94 H Respiratory Rate 22 23 23 Blood Pressure Pulse Oximetry 96 96 96 Oxygen Delivery Method Oxygen Flow Rate Fraction of Inspired Oxygen 08/28/24 17:00 08/28/24 17:05 08/28/24 17:10 Temperature Pulse Rate 94 H 99 H 96 H Respiratory Rate 22 16 23 Blood Pressure Pulse Oximetry 96 93 94 Oxygen Delivery Method Oxygen Flow Rate Fraction of Inspired Oxygen 08/28/24 17:15 08/28/24 17:20 08/28/24 17:25 Temperature Pulse Rate 94 H 94 H 96 H Respiratory Rate 23 22 24 Blood Pressure Pulse Oximetry 90 L 92 91 Oxygen Delivery Method Oxygen Flow Rate Fraction of Inspired Oxygen 08/28/24 17:30 08/28/24 17:35 08/28/24 17:40 Temperature Pulse Rate 95 H 95 H 95 H Respiratory Rate 22 20 21 Blood Pressure Pulse Oximetry 90 L 89 L 90 L Oxygen Delivery Method Oxygen Flow Rate Fraction of Inspired Oxygen 08/28/24 17:45 08/28/24 17:50 08/28/24 17:50 Temperature Pulse Rate 96 H 94 H Respiratory Rate 23 24 Blood Pressure 115/55 L Pulse Oximetry 89 L 92 Oxygen Delivery Method Nasal Cannula Oxygen Flow Rate 2 Fraction of Inspired Oxygen 08/28/24 17:55 08/28/24 18:00 08/28/24 18:05 Temperature Pulse Rate 97 H 97 H 95 H Respiratory Rate 18 23 26 H Blood Pressure Pulse Oximetry 98 98 96 Oxygen Delivery Method Nasal Cannula Nasal Cannula Nasal Cannula Oxygen Flow Rate 2 2 2 Fraction of Inspired Oxygen 08/28/24 18:10 08/28/24 18:15 08/28/24 18:20 Temperature Pulse Rate 96 H 97 H 97 H Respiratory Rate 28 H 26 H 25 H Blood Pressure Pulse Oximetry 94 93 93 Oxygen Delivery Method Oxygen Flow Rate Fraction of Inspired Oxygen 08/28/24 18:25 08/28/24 18:30 08/28/24 18:35 Temperature Pulse Rate 97 H 97 H 97 H Respiratory Rate 22 24 20 Blood Pressure Pulse Oximetry 95 93 92 Oxygen Delivery Method Nasal Cannula Oxygen Flow Rate 2 Fraction of Inspired Oxygen 08/28/24 18:36 08/28/24 18:36 08/28/24 18:40 Temperature Pulse Rate 97 H 97 H Respiratory Rate 18 17 Blood Pressure 116/63 Pulse Oximetry 93 93 Oxygen Delivery Method Oxygen Flow Rate Fraction of Inspired Oxygen 08/28/24 18:45 08/28/24 18:50 08/28/24 18:55 Temperature Pulse Rate 97 H 97 H 98 H Respiratory Rate 28 H 22 21 Blood Pressure Pulse Oximetry 93 93 93 Oxygen Delivery Method Oxygen Flow Rate Fraction of Inspired Oxygen 08/28/24 19:00 08/28/24 19:05 08/28/24 19:06 Temperature Pulse Rate 97 H 97 H 97 H Respiratory Rate 16 20 28 H Blood Pressure Pulse Oximetry 93 93 94 Oxygen Delivery Method Oxygen Flow Rate Fraction of Inspired Oxygen 08/28/24 19:06 08/28/24 19:10 08/28/24 19:15 Temperature Pulse Rate 97 H 97 H Respiratory Rate 22 18 Blood Pressure 117/56 L Pulse Oximetry 94 93 Oxygen Delivery Method Oxygen Flow Rate Fraction of Inspired Oxygen 08/28/24 19:15 08/28/24 19:20 08/28/24 19:25 Temperature Pulse Rate 97 H 97 H Respiratory Rate 23 20 Blood Pressure 117/58 L Pulse Oximetry 94 94 Oxygen Delivery Method Oxygen Flow Rate Fraction of Inspired Oxygen 08/28/24 19:30 08/28/24 19:30 08/28/24 19:35 Temperature Pulse Rate 96 H 96 H Respiratory Rate 27 H 24 Blood Pressure 125/61 Pulse Oximetry 95 95 Oxygen Delivery Method Oxygen Flow Rate Fraction of Inspired Oxygen 08/28/24 19:40 08/28/24 19:44 08/28/24 19:45 Temperature Pulse Rate 97 H 96 H Respiratory Rate 28 H 25 H Blood Pressure Pulse Oximetry 96 96 Oxygen Delivery Method Nasal Cannula Oxygen Flow Rate 2 Fraction of Inspired Oxygen 08/28/24 19:45 08/28/24 19:50 08/28/24 19:55 Temperature Pulse Rate 96 H 97 H Respiratory Rate 26 H 28 H Blood Pressure 127/63 Pulse Oximetry 95 96 Oxygen Delivery Method Oxygen Flow Rate Fraction of Inspired Oxygen 08/28/24 20:00 08/28/24 20:00 08/28/24 20:05 Temperature Pulse Rate 97 H 99 H Respiratory Rate 22 40 H Blood Pressure 132/69 Pulse Oximetry 97 98 Oxygen Delivery Method Oxygen Flow Rate Fraction of Inspired Oxygen 08/28/24 20:10 08/28/24 20:15 08/28/24 20:20 Temperature Pulse Rate 99 H 101 H 100 H Respiratory Rate 28 H 23 21 Blood Pressure Pulse Oximetry 97 96 98 Oxygen Delivery Method Oxygen Flow Rate Fraction of Inspired Oxygen 08/28/24 20:21 08/28/24 20:21 08/28/24 20:25 Temperature Pulse Rate 98 H 96 H Respiratory Rate 22 20 Blood Pressure 121/61 Pulse Oximetry 98 98 Oxygen Delivery Method Oxygen Flow Rate Fraction of Inspired Oxygen 08/28/24 20:30 08/28/24 20:30 08/28/24 20:33 Temperature Pulse Rate 97 H Respiratory Rate 29 H Blood Pressure 128/63 Pulse Oximetry 95 Oxygen Delivery Method Nasal Cannula Oxygen Flow Rate Fraction of Inspired Oxygen 08/28/24 20:35 08/28/24 20:40 08/28/24 20:45 Temperature Pulse Rate 99 H 97 H Respiratory Rate 30 H 25 H Blood Pressure 127/65 Pulse Oximetry 98 97 Oxygen Delivery Method Oxygen Flow Rate Fraction of Inspired Oxygen 08/28/24 20:45 08/28/24 20:50 08/28/24 20:55 Temperature Pulse Rate 98 H 100 H 100 H Respiratory Rate 26 H 33 H 30 H Blood Pressure Pulse Oximetry 98 98 98 Oxygen Delivery Method Oxygen Flow Rate Fraction of Inspired Oxygen 08/28/24 21:05 08/28/24 21:10 08/28/24 21:15 Temperature Pulse Rate 102 H 98 H 97 H Respiratory Rate 25 H 16 Blood Pressure Pulse Oximetry 91 Oxygen Delivery Method Oxygen Flow Rate Fraction of Inspired Oxygen 08/28/24 21:17 08/28/24 21:20 08/28/24 21:25 Temperature 97.5 F L Pulse Rate 97 H 96 H 98 H Respiratory Rate 25 H 24 26 H Blood Pressure 135/80 Pulse Oximetry 93 92 94 Oxygen Delivery Method Oxygen Flow Rate 0 Fraction of Inspired Oxygen 08/28/24 21:30 08/28/24 21:35 08/28/24 21:40 Temperature Pulse Rate 102 H 97 H 97 H Respiratory Rate 27 H 13 21 Blood Pressure Pulse Oximetry 97 97 93 Oxygen Delivery Method Oxygen Flow Rate Fraction of Inspired Oxygen 08/28/24 21:45 08/28/24 21:50 08/28/24 21:55 Temperature Pulse Rate 97 H 97 H 97 H Respiratory Rate 19 20 13 Blood Pressure Pulse Oximetry 93 96 95 Oxygen Delivery Method Oxygen Flow Rate Fraction of Inspired Oxygen 08/28/24 21:59 08/28/24 22:00 08/28/24 22:00 Temperature Pulse Rate 93 H 94 H Respiratory Rate 18 Blood Pressure 123/72 Pulse Oximetry 96 95 Oxygen Delivery Method Nasal Cannula Oxygen Flow Rate 2 Fraction of Inspired Oxygen 28 08/28/24 22:05 08/28/24 22:10 08/28/24 22:15 Temperature Pulse Rate 95 H 97 H 98 H Respiratory Rate 22 26 H 23 Blood Pressure Pulse Oximetry 95 95 94 Oxygen Delivery Method Oxygen Flow Rate 0 Fraction of Inspired Oxygen Fraction of Inspired Oxygen 28 SaO2/FiO2 Ratio 342 Oxygen Delivery Method Nasal Cannula Oxygen Flow Rate 0 Narrative Exam Narrative: Physical Exam: GENERAL: Drowsy but wakes up intermittently HEENT: Nonicteric sclerae, PERRLA, EOMI. Oropharynx clear. Moist mucous membranes. Conjunctivae appear well perfused. HEART: Regular rate and rhythm without murmurs. No lower extremities edema. LUNGS: Clear to auscultation bilaterally. No wheezing, crackles or rhonchi ABDOMEN: Soft, positive bowel sounds, nontender. SKIN: No rash, no excessive bruising, petechiae, or purpura. NEUROLOGIC: Drowsy but wakes up intermittently. Moves all four extremities Objective Labs 08/28/24 14:20 08/28/24 14:20 Labs: Laboratory Results - last 24 hr 08/28/24 08/28/24 14:20 17:05 WBC 10.9 RBC 4.67 Hgb 13.5 Hct 41.5 MCV 88.8 MCH 28.9 MCHC 32.5 RDW 17.8 H Plt Count 277 Neut % (Auto) 62.5 Lymph % (Auto) 28.9 [place] % (Auto) 6.3 Eos % (Auto) 1.0 L Baso % (Auto) 1.3 Neut # (Auto) 6800 Lymph # (Auto) 3200 [place] # (Auto) 700 Eos # (Auto) 100 Baso # (Auto) 100 Sodium 134 L Potassium 4.2 Chloride 103 Carbon Dioxide 22 BUN 11 Creatinine 0.88 Estimated GFR > 60 BUN/Creatinine Ratio 12.5 Glucose 115 H Calcium 9.1 Total Bilirubin 0.5 AST 23 ALT 16 Alkaline Phosphatase 94 Total Protein 7.5 Albumin 4.2 Globulin 3.3 Albumin/Globulin Ratio 1.3 Salicylates < 1.0 U Opiates 300ng/mL cut Negative Ur Oxycodone Screen Negative Urine Methadone Screen Negative Acetaminophen < 10 Ur Barbiturates Screen Negative U Tricyclic Antidepress Negative Ur Phencyclidine Scrn Negative Ur Amphetamines Screen Negative U Methamphetamines Scrn Negative Ur MDMA Scrn (Ecstasy) Negative U Benzodiazepines Scrn Negative Urine Cocaine Screen Negative U Marijuana (THC) Screen Negative Urine pH Normal Urine Specific [place] Normal Ethyl Alcohol < 10 Ur Creatinine Normal Assessment & Plan Assessment & Plan narrative: Accidental fentanyl overdose. Admit the patient to ICU. Continue fentanyl drip. Patient mentation is slowly improving. Continue IV fluid and n.p.o. for now. Hyperlipidemia. Resume atorvastatin in the morning when patient's mentation is improved. Depression and anxiety. Hold home psychiatric medication until mentation improved. GERD resume PPI. DVT prophylaxis heparin subcu. CODE STATUS full code. Disposition likely home in 2 days. - As the provider of this telehealth evaluation, requested by the patient's evaluating physician, I attest that I introduced myself to the patient, provided my credentials and determined that telemedicine via a real-time, 2 way interactive audio and video platform is an appropriate and effective means of providing this service. - I reviewed the patient's chart and had a discussion with the member of the patient's treatment team. - The patient and I mutually agreed with continuation of this evaluation via telemedicine. The patient consented for the telemedicine evaluation. - This virtual encounter was taken place from [place]. The encounter was approximately 35 minutes. The nurse was present during the entire time of the encounter and was able to move the stethoscope in appropriate directions. The patient was evaluated at [facility]. Time-Based Coding :: [TOTAL MINUTES] spent with patient and on the chart (including review of chart, obtaining history, exam, reviewing outside data, placing orders, documenting exam and treatment plan, and counseling patient) on [DATE]. Quality VTE Deep Vein Thrombosis/Pulmonary Embolism Present on Admission: No
[2024-08-29] VITALS (106 sets, daily range): BP systolic 112–153; BP diastolic 69–79; PULSE 76–100; RESP 14–41; TEMP 36.2; O2SAT 90–99
[2024-08-29 05:25] LABS: Add Manual Diff / Slide Review NO; Basophils Absolute Auto 100 /uL (0-100); Basophils Percent Auto 1.1 % (0-2); Eosinophils Absolute Auto 100 /uL (0-450); Eosinophils Percent Auto 0.9 % (2-4); Hemoglobin 12.3 g/dL (12.0-16.0); Lymphocytes Absolute Auto 2900 /uL (1100-4500); Lymphocytes Percent Auto 34.3 % (25-40); Mean Corpuscular HGB Conc 31.5 % (30-36); Mean Corpuscular Hemoglobin 28.1 PG (26-34); Mean Corpuscular Volume 89.2 fL (80-100); Monocytes Absolute Auto 500 /uL (0-900); Monocytes Percent Auto 5.5 % (3-14); Neutrophils Absolute Auto 4900 /uL (1500-7000); Neutrophils Percent Auto 58.2 % (50-75); Platelet Count 251 X10^3/uL (150-400); Red Blood Cell Count 4.37 X10^6/uL (4.0-5.2); White Blood Cell Count 8.3 X10^3/uL (4.5-11.0)
[2024-08-29 05:41] LABS: Alanine Aminotransferase 11 IU/L (<35); Albumin 3.7 g/dL (3.5-5.0); Albumin Globulin Ratio 1.2 (1.0-2.8); Alkaline Phosphatase 89 U/L (38-126); Aspartate Aminotransferase 20 IU/L (14-36); BUN Creatinine Ratio 10.5 (6-22); Bilirubin Total 0.6 mg/dL (0.2-1.3); Blood Urea Nitrogen 8 mg/dL (7-17); Calcium 8.7 mg/dL (8.4-10.2); Carbon Dioxide 27 mmol/L (22-32); Chloride 104 mmol/L (98-107); Estimated Glomerular Filt Rate > 60 mL/min (>60); Glucose 95 mg/dL (70-99); HEMOLYSIS 29 (0-50); Potassium 4.1 mmol/L (3.4-5.1); Sodium 136 mmol/L (137-145); Total Protein 6.7 g/dL (6.3-8.2)
[2024-08-29] MEDS: SODIUM CHLORIDE 0.9% 1,000 ML 100 ML IV (06:08)
--- NOTE | 2024-08-29 06:22 | PC.NURSE ---
pt arrived from ER via stretcher, ambulated to bed with SBY assist, A&Ox3, vague on situation around getting to hospital, drowsy but rousable to verbal stimuli, denies pain, cooperative with care, IV fluids infusing, o2 sats 88% when asleep snoring, 2L NC applied and O2 sats improved to mid 90s, voiding in bedside commode with assist, IV fluids infusing, narcan drip continues to stay on hold, bed alarm on, call pressley within reach, meds and labs as ordered, care continued
--- NOTE | 2024-08-29 08:42 | P.DS_ITS ---
History of Present Illness History of Present Illness Date Patient Seen: 08/29/24 Time Patient Seen: 08:43 Chief complaint: Low blood pressure dehydrated Narrative: Per admitting provider, 53-year-old female with past medical history polysubstance abuse, HIV migraine, liver disease, bipolar disorder, anxiety, diabetes, hypertension, GERD, depression and PTSD presents with fentanyl overdose. Per the patient's 's report, the patient's and her crush about $150 worth of fentanyl pills and started to smoke from. However the patient states that the patient became very confused and decreased in her mentation shortly after. The patient's was concerned that they may have taken more than the usual dose at 8 abuse. The patient are actually at the methadone clinic and patient lightheadedness and was positive orthostatic. The patient was minimally arousable and was ceased and he received 0.4 mg Narcan into ER. The patient became more awake and alert but did not report of any vomiting. In our ER the patient became somnolent again and Narcan drip was started. Patient remains hemodynamically stable, saturating well on room air. Labs were relatively benign except for sodium 134 and glucose of 115. Per the patient's the patient overdosed on fentanyl was accidental and not suicidal. ER physician requested to admit to ICU with Narcan drip. Discharge Providers Provider Date of admission: 08/28/24 19:32 Discharge Date: 08/29/24 Primary care physician: Nidhi Faustin DO Discharge provider: Avery Proctor DO Summary Hospital Course Discharge Diagnosis: Accidental fentanyl overdose, POA with acute respiratory failure with hypoxia Hyperlipidemia. Depression and anxiety. GERD Hospital Course: This 53-year-old female with a past medical history of hyperlipidemia, depression anxiety, GERD who was admitted to the hospital after an accidental fentanyl overdose with mild hypoxia that was noted in the emergency room. She was placed on a Narcan infusion in the emergency room and admitted to the ICU. Her Narcan infusion had actually been shut off before ICU arrival. She was observed overnight with no changes in mentation and no hypopnea. She was discharged home the following morning. Patient already reports having Narcan nasal spray at home. Time Spent with Patient Time spent: Greater than 30 minutes Exam Vital Signs (past 8 hours): - 08/29/24 00:45 08/29/24 00:50 08/29/24 00:55 Temperature Pulse Rate 85 83 87 Respiratory Rate 21 22 22 Blood Pressure Pulse Oximetry 94 94 94 Oxygen Flow Rate 08/29/24 01:00 08/29/24 01:00 08/29/24 01:05 Temperature Pulse Rate 83 88 Respiratory Rate 23 20 Blood Pressure 112/70 Pulse Oximetry 94 95 Oxygen Flow Rate 08/29/24 01:10 08/29/24 01:15 08/29/24 01:20 Temperature Pulse Rate 87 85 87 Respiratory Rate 21 24 22 Blood Pressure Pulse Oximetry 96 95 95 Oxygen Flow Rate 08/29/24 01:25 08/29/24 01:30 08/29/24 01:35 Temperature Pulse Rate 89 88 83 Respiratory Rate 24 25 H 22 Blood Pressure Pulse Oximetry 94 92 92 Oxygen Flow Rate 08/29/24 01:40 08/29/24 01:45 08/29/24 01:50 Temperature Pulse Rate 88 83 87 Respiratory Rate 28 H 25 H 26 H Blood Pressure Pulse Oximetry 92 92 92 Oxygen Flow Rate 08/29/24 01:55 08/29/24 02:00 08/29/24 02:00 Temperature Pulse Rate 83 85 Respiratory Rate 21 20 Blood Pressure 128/69 Pulse Oximetry 91 91 Oxygen Flow Rate 08/29/24 02:05 08/29/24 02:10 08/29/24 02:15 Temperature Pulse Rate 84 86 87 Respiratory Rate 25 H 20 25 H Blood Pressure Pulse Oximetry 92 90 L 90 L Oxygen Flow Rate 08/29/24 02:20 08/29/24 02:25 08/29/24 02:30 Temperature Pulse Rate 86 84 85 Respiratory Rate 24 22 20 Blood Pressure Pulse Oximetry 90 L 95 95 Oxygen Flow Rate 08/29/24 02:35 08/29/24 02:40 08/29/24 02:45 Temperature Pulse Rate 83 82 81 Respiratory Rate 19 23 23 Blood Pressure Pulse Oximetry 96 95 97 Oxygen Flow Rate 08/29/24 02:50 08/29/24 02:55 08/29/24 03:00 Temperature Pulse Rate 82 84 Respiratory Rate 23 16 Blood Pressure 125/72 Pulse Oximetry 97 98 Oxygen Flow Rate 08/29/24 03:00 08/29/24 03:05 08/29/24 03:10 Temperature 97.1 F L Pulse Rate 83 83 94 H Respiratory Rate 20 27 H 22 Blood Pressure Pulse Oximetry 96 98 98 Oxygen Flow Rate 2 08/29/24 03:15 08/29/24 03:20 08/29/24 03:25 Temperature Pulse Rate 95 H 100 H 82 Respiratory Rate 21 41 H 19 Blood Pressure Pulse Oximetry 97 94 Oxygen Flow Rate 08/29/24 03:30 08/29/24 03:35 08/29/24 03:40 Temperature Pulse Rate 79 80 79 Respiratory Rate 22 21 19 Blood Pressure Pulse Oximetry 94 94 96 Oxygen Flow Rate 08/29/24 03:45 08/29/24 03:50 08/29/24 03:55 Temperature Pulse Rate 80 82 81 Respiratory Rate 19 20 21 Blood Pressure Pulse Oximetry 97 97 96 Oxygen Flow Rate 08/29/24 04:00 08/29/24 04:00 08/29/24 04:05 Temperature Pulse Rate 85 82 Respiratory Rate 22 21 Blood Pressure 145/79 H Pulse Oximetry 95 96 Oxygen Flow Rate 08/29/24 04:10 08/29/24 04:15 08/29/24 04:20 Temperature Pulse Rate 81 82 83 Respiratory Rate 20 20 20 Blood Pressure Pulse Oximetry 95 96 96 Oxygen Flow Rate 08/29/24 04:25 08/29/24 04:30 08/29/24 04:35 Temperature Pulse Rate 82 80 79 Respiratory Rate 14 14 18 Blood Pressure Pulse Oximetry 99 98 96 Oxygen Flow Rate 08/29/24 04:40 08/29/24 04:45 08/29/24 04:50 Temperature Pulse Rate 81 81 81 Respiratory Rate 18 27 H 21 Blood Pressure Pulse Oximetry 98 98 97 Oxygen Flow Rate 08/29/24 04:55 08/29/24 05:00 08/29/24 05:00 Temperature Pulse Rate 79 80 Respiratory Rate 21 17 Blood Pressure 148/77 H Pulse Oximetry 97 97 Oxygen Flow Rate 08/29/24 05:05 08/29/24 05:10 08/29/24 05:15 Temperature Pulse Rate 80 81 79 Respiratory Rate 17 21 22 Blood Pressure Pulse Oximetry 99 97 98 Oxygen Flow Rate 08/29/24 05:20 08/29/24 05:25 08/29/24 05:30 Temperature Pulse Rate 86 80 83 Respiratory Rate 21 30 H 22 Blood Pressure Pulse Oximetry 98 97 98 Oxygen Flow Rate 08/29/24 05:35 08/29/24 05:40 08/29/24 05:45 Temperature Pulse Rate 79 81 80 Respiratory Rate 27 H 26 H 25 H Blood Pressure Pulse Oximetry 99 98 99 Oxygen Flow Rate 08/29/24 05:50 08/29/24 05:55 08/29/24 06:00 Temperature Pulse Rate 83 84 82 Respiratory Rate 26 H 26 H 25 H Blood Pressure Pulse Oximetry 98 99 99 Oxygen Flow Rate 08/29/24 06:00 08/29/24 06:05 08/29/24 06:10 Temperature Pulse Rate 82 84 Respiratory Rate 22 24 Blood Pressure 144/73 H Pulse Oximetry 98 99 Oxygen Flow Rate 08/29/24 06:15 08/29/24 06:20 08/29/24 06:25 Temperature Pulse Rate 82 83 83 Respiratory Rate 23 24 22 Blood Pressure Pulse Oximetry 98 99 97 Oxygen Flow Rate 08/29/24 06:30 Temperature Pulse Rate 80 Respiratory Rate 23 Blood Pressure Pulse Oximetry 98 Oxygen Flow Rate Fraction of Inspired Oxygen 28 SaO2/FiO2 Ratio 342 Oxygen Delivery Method Nasal Cannula Oxygen Flow Rate 2 Narrative Exam Narrative: Gen: no acute distress, awake and alert watching television eating breakfast CV: RRR no m/r/g Pulm: CTA b/l no wheezing rhonchi rales Abd S NT ND Ext: No edema Objective Labs 08/29/24 04:28 08/29/24 04:28 Labs: Laboratory Results - last 24 hr 08/28/24 08/28/24 08/29/24 14:20 17:05 04:28 WBC 10.9 8.3 RBC 4.67 4.37 Hgb 13.5 12.3 Hct 41.5 39.0 MCV 88.8 89.2 MCH 28.9 28.1 MCHC 32.5 31.5 RDW 17.8 H 18.0 H Plt Count 277 251 Neut % (Auto) 62.5 58.2 Lymph % (Auto) 28.9 34.3 [place] % (Auto) 6.3 5.5 Eos % (Auto) 1.0 L 0.9 L Baso % (Auto) 1.3 1.1 Neut # (Auto) 6800 4900 Lymph # (Auto) 3200 2900 [place] # (Auto) 700 500 Eos # (Auto) 100 100 Baso # (Auto) 100 100 Sodium 134 L 136 L Potassium 4.2 4.1 Chloride 103 104 Carbon Dioxide 22 27 BUN 11 8 Creatinine 0.88 0.76 Estimated GFR > 60 > 60 BUN/Creatinine Ratio 12.5 10.5 Glucose 115 H 95 Calcium 9.1 8.7 Total Bilirubin 0.5 0.6 AST 23 20 ALT 16 11 Alkaline Phosphatase 94 89 Total Protein 7.5 6.7 Albumin 4.2 3.7 Globulin 3.3 3.0 Albumin/Globulin Ratio 1.3 1.2 Salicylates < 1.0 U Opiates 300ng/mL cut Negative Ur Oxycodone Screen Negative Urine Methadone Screen Negative Acetaminophen < 10 Ur Barbiturates Screen Negative U Tricyclic Antidepress Negative Ur Phencyclidine Scrn Negative Ur Amphetamines Screen Negative U Methamphetamines Scrn Negative Ur MDMA Scrn (Ecstasy) Negative U Benzodiazepines Scrn Negative Urine Cocaine Screen Negative U Marijuana (THC) Screen Negative Urine pH Normal Urine Specific [place] Normal Ethyl Alcohol < 10 Ur Creatinine Normal PFSH Medical History Retained ureteral stent Hx of osteoarthritis Hx of migraine headaches History of liver disease Kidney stone on left side Bipolar disorder Arthritis HIV (human immunodeficiency virus infection) History of gastrointestinal symptoms Anxiety Diabetes mellitus Hypertension GERD (gastroesophageal reflux disease) Fibroids Depression PTSD (post-traumatic stress disorder) Surgical History History of stress incontinence procedure using tension free vaginal tape (2013) History of cystoscopy (2013) S/P functional endoscopic sinus surgery (2002) Status post arthroscopy (2003) Status post laparoscopic supracervical hysterectomy (2011) Status post cholecystectomy (2011) Family History Father Diabetes mellitus Hypertension CVA (cerebral vascular accident) Mother Diabetes mellitus Hypertension CVA (cerebral vascular accident) Hearing impairment Brother Hypertension Social History marital status: number of children: 3 household members: spouse occupational status: disabled Smoking Status: Current every day smoker alcohol intake: current caffeine: Yes Type(s) of exercise: none Discharge Plan Discharge Plan Patient Disposition: Home Provider Discharge Comment: You were admitted to the hospital for narcan infusion for fentanyl overdose, now improved/stable for discharge. Discharge orders & Medications Prescriptions: Continued estradiol 1 mg tablet 1 mg PO DAILY Qty: 90 3RF cetirizine 10 mg Tablet 10 mg PO DAILY clonazepam 1 mg tablet 1 mg PO 3XD gabapentin 800 mg tablet 800 mg PO BID trazodone 150 mg tablet 150 mg PO BEDTIME ondansetron 4 mg tablet,disintegrating 4 mg PO 4XD PRN (Reason: nausea/vomiting) Patient Comments: DISSOLVE 1 tablet ON TONGUE 3 TO 4 TIMES DAILY if needed FOR NAUSEA AND VOMITING prazosin 2 mg Capsule 2 mg PO BID spironolactone 50 mg tablet 50 mg PO QAM atomoxetine 40 mg capsule 40 mg PO QAM buprenorphine-naloxone 2-0.5 mg tablet, sublingual 4 tab SUBLINGUAL DAILY propranolol 80 mg Capsule,Extended Release 24hr 80 mg PO DAILY dexlansoprazole [Dexilant] 60 mg Capsule,Biphase Delayed Releas 60 mg PO DAILY Triumeq 600-50-300 mg tablet 1 tab PO DAILY Adult Low Dose Aspirin 81 mg DAILY cyclobenzaprine 10 mg tablet 10 mg PO TID PRN (Reason: muscle spasm) Qty: 30 0RF atorvastatin 20 mg tablet 20 mg PO DAILY duloxetine 60 mg Capsule,Delayed Release(Dr/Ec) 60 mg PO DAILY Invokamet 150-1,000 mg Tablet 1 tab PO BID Follow up/Referrals: Nidhi Faustin DO [Primary Care Provider] - Diet/Activity/Treatments Diet: Diet as Tolerated and Regular Activity: As tolerated, no restrictions. Visit Report/Discharge Packet Instructions: DI for Drug Overdose in Adults, Naloxone Nasal [place] Stand Alone Forms: Patient Portal/API, Stroke Signs & Symptoms Discharge Data Primary Care Provider: Nidhi Faustin Attending Provider: Dalton Lyon Admit Date/Time: 08/28/24 19:32 Quality VTE Deep Vein Thrombosis/Pulmonary Embolism Present on Admission: No
[2024-08-29] MEDS: PRAZOSIN 1 MG CAPSULE 2 MG PO (09:20)
[2024-08-29] MEDS: PANTOPRAZOLE DR 40 MG TABLET PO (09:20)
[2024-08-29] MEDS: HEPARIN 5,000 UNIT/ML VIAL 5000 UNIT SUBCUT (09:20)
[2024-08-29] MEDS: ATORVASTATIN 20 MG TABLET PO (09:20)
[2024-08-29] MEDS: ASPIRIN 81 MG CHEW TAB PO (09:20)
[2024-08-29] MEDS: PROPRANOLOL 10 MG TABLET 40 MG PO (09:20)
--- NOTE | 2024-08-29 10:26 | PC.NURSE ---
Discharge Note Patient discharged to home with spouse at this time, escorted to hospital exit via wheelchair by staff member. Discharge instructions given to pt and to spouse and all questions answered. All belongings with pt including cell phone, bag, clothing, and shoes. Pt awake this morning prior to d/c and SpO2 upper 90s on RA, pt able to eat full breakfast. Reported feeling better and expressed desire to go home.
== END 2024-08-29 10:25 | disposition home or self-care (01) ==
LOC: ED 19:33 → AC 19:47 → ICU 21:29 → AC 08-29 12:41 → ICU 08-29 12:41
PROVIDERS: Admitting Provider Internal Medicine; Emergency Provider Emergency Medicine; PCP Family Medicine; Referring Provider Emergency Medicine; Visit Provider Internal Medicine
DX: T40.411A Poisoning by fentanyl or fentanyl analogs, accidental (unintentional), initial encounter (principal); Z21 Asymptomatic human immunodeficiency virus [HIV] infection status; E78.5 Hyperlipidemia, unspecified; F32.A Depression, unspecified; F41.9 Anxiety disorder, unspecified; K21.9 Gastro-esophageal reflux disease without esophagitis; F17.210 Nicotine dependence, cigarettes, uncomplicated; E11.9 Type 2 diabetes mellitus without complications; F43.10 Post-traumatic stress disorder, unspecified; I10 Essential (primary) hypertension; K76.9 Liver disease, unspecified; Z79.84 Long term (current) use of oral hypoglycemic drugs
CPT/HCPCS: 36415; 80053; 80305; 80320; 80329; 85025; 96361; 96365; 96372; 96375; 96376; 99285; 99406; G0378; G0480; J1644; J2310; J2405